=== PATIENT | male | born 1950 | race Caucasian/White ===

== ENCOUNTER 2016-08-01 22:36 | Inpatient (IN) | payer MEDICARE ==
[2016-08-01] MEDS ORDERED: BABY ASPIRIN 81 MG CHEW PO ONE (22:41)
[2016-08-01] MEDS ORDERED: Sodium Chloride 0.9% 1000 ML 1,000 ML IV SCH (22:45)
[2016-08-01] MEDS ORDERED: BABY ASPIRIN 81 MG CHEW ONE (22:56)
[2016-08-01] MEDS ORDERED: Sodium Chloride 0.9% 1000 ML 1,000 ML ONE (22:57)
[2016-08-01 23:01] LABS: A-aADO2 238; ARTERIAL BLD GAS O2 SATURATION 96.7 % (95-100); ARTERIAL BLOOD GAS BASE EXCESS -1.5 (-2.0-2.0); ARTERIAL BLOOD GAS FIO2 50 %; ARTERIAL BLOOD GAS PO2 72 mmHg (75-100)
[2016-08-01 23:06] LABS: BASOPHIL % 0.3 % (0.0-0.4); Eosinophil % 11.1 % (0.00-5.0); Granulocytes % 49.4 % (36.0-66.0); Mean Cell Volume 91.3 fl (78-100); Mean Corpuscular Hemoglobin 30.9 pg (26-32); Mean Platelet Volume 9.6 fl (6-9.5); Monocytes % 7.2 % (0.0-12.0); Platelet Count 130 K/mm3 (150-450); Red Blood Count 4.85 M/mm3 (4.1-5.6); Red Cell Distribution Width 14.3 % (11.5-14.0); White Blood Count 7.2 K/mm3 (4.0-10.5)
--- NOTE | 2016-08-01 23:07 | ERPHSYRPT ---
- History of Present Illness Time Seen by Provider: 08/01/16 22:41 Source: patient, family, EMS Patient Subjective Stated Complaint: onset acute SOB while at rest x 6 hours ago (1600) - reports intermittent periods of CP Triage Nursing Assessment: lifted to cart per EMS personnel - moves all extremities with equal strength. alert/oriented - appropriate affect. skin flushed/dry - no rash/injury appreciated. resps spontaneous - labored - diminished throughout Physician History: CC: short of air Hx: 66 y/o patient of MARY Gilman. He had surgery a few months for chest lymph nodes which turned out to be benign. He takes nebs at home. He worked today. When he got home he had some shortness of breath that increased despite multiple nebs. He had some chest pain that was nonspecific. He had no fever or chills. No abd pain. He does not smoke. EMS noted severe resp distress on arrival with tight wheezing. He was given duoneb X 2, solu medrol 125, and oxygen and had improvement enroute. Severity of Dyspnea-Max: severe Severity of Dyspnea-Current: moderate Allergies/Adverse Reactions: levofloxacin Allergy (Intermediate, Verified 08/01/16 22:38) Hives Hx Tetanus, Diphtheria Vaccination/Date Given: Yes Hx Influenza Vaccination/Date Given: Yes Hx Pneumococcal Vaccination/Date Given: Yes Immunizations Up to Date: Yes - Review of Systems Constitutional: Fatigue, Malaise, No Fever, No Chills Eyes: No Symptoms Ears, Nose, & Throat: No Symptoms Respiratory: Cough, Dyspnea, Wheezing Cardiac: Chest Pain Abdominal/Gastrointestinal: No Abdominal Pain, No Nausea, No Vomiting Skin: No Rash Neurological: No Dizziness, No Focal Weakness, No Parasthesia All Other Systems: Reviewed and Negative - Past Medical History Pertinent Past Medical History: Yes Cardiac History: High Cholesterol, Hypertension Respiratory History: COPD - Past Surgical History Past Surgical History: Yes Gastrointestinal: Cholecystectomy - Social History Smoking Status: Never smoker Exposure to second hand smoke: No Drug Use: none Patient Lives Alone: No - Nursing Vital Signs Nursing Vital Signs: Initial Vital Signs Temperature 98.8 F Temperature Source Rectal Pulse Rate 83 Respiratory Rate 18 Blood Pressure 121/70 Pain Intensity 6 - Physical Exam General Appearance: alert Eye Exam: PERRL/EOMI Ears, Nose, Throat Exam: pharyngeal erythema Neck Exam: normal inspection, non-tender, supple Respiratory Exam: respiratory distress (mild), crackles/rales, wheezing Cardiovascular/Chest Exam: normal heart sounds, regular rate/rhythm Abdominal/Gastrointestinal Exam: soft, No tenderness, No distention, No mass, No guarding Extremity Exam: non-tender, normal range of motion Neurologic Exam: alert, oriented x 3, cooperative, sensation nml, No motor deficits Skin Exam: warm, dry, No rash SpO2 Interpretation: normal SpO2: 96 Oxygen Delivery: Non-rebreather - Course Nursing assessment & vital signs reviewed: Yes EKG Interpreted by Me: RATE (83), Sinus Rhythm, Left Ardara Deviation, NORMAL INTERVALS (QTc 426), Non-specific ST Changes - Radiology Exams cxr X-ray Interpretation: Reviewed by me (CM, hilar adenopathy) Ordered Tests: Active Orders 24 hr Category Date Time Status Market Research Consultant STAT Care 08/01/16 22:41 Active EKG-ER Only STAT Care 08/01/16 22:41 Active IV Insertion STAT Care 08/01/16 22:41 Active Oxygen-ED Only VENTI-MASK 50% Care 08/01/16 22:41 Active Rectal Temperature STAT Care 08/01/16 23:05 Active CHEST 1 VIEW (PORTABLE) Stat Exams 08/01/16 22:41 Taken ARTERIAL BLOOD GASES Stat Lab 08/01/16 23:00 Results BLOOD CULTURE Stat Lab 08/01/16 23:02 Received CBC W DIFF Stat Lab 08/01/16 22:50 Completed CMP Stat Lab 08/01/16 22:50 Completed D-DIMER QUANTITATION Stat Lab 08/01/16 22:50 Completed INFLUENZA A+B Stat Lab 08/01/16 23:00 Completed Lactic Acid Urgent Lab 08/01/16 22:42 Completed MAGNESIUM Stat Lab 08/01/16 22:50 Completed NT PRO BNP Stat Lab 08/01/16 22:50 Completed PROTIME WITH INR Stat Lab 08/01/16 22:50 Completed PTT Stat Lab 08/01/16 22:50 Completed TROPONIN Q3H Lab 08/01/16 22:50 Completed TROPONIN Q3H Lab 08/02/16 01:45 Ordered TROPONIN Q3H Lab 08/02/16 04:45 Ordered TROPONIN Q3H Lab 08/02/16 07:45 Ordered TROPONIN Q3H Lab 08/02/16 10:45 Ordered Respiratory Nebulizer STAT RT 08/01/16 23:59 Active Medication Summary Generic Name Dose Route Start Last Admin Trade Name Tay PRN Reason Stop Dose Admin Sodium Chloride 1,000 mls @ 50 mls/hr 08/01/16 22:45 08/01/16 22:57 Sodium Chloride 0.9% 1000 Ml IV 08/31/16 22:44 50 mls/hr .Q20H ROHIT Administration Azithromycin 250 mls @ 125 mls/hr 08/01/16 23:58 Zithromax 500 Mg/ 250 Ml Nacl Premix IV 08/02/16 01:57 STAT ONE Magnesium Sulfate/Dextrose 100 mls @ 100 mls/hr 08/01/16 23:45 08/02/16 00:35 Magnesium 1 Gm / 100 Ml D5w IV 08/02/16 01:44 100 mls/hr Q1H ROHIT Administration Discontinued Medications Generic Name Dose Route Start Last Admin Trade Name Tay PRN Reason Stop Dose Admin Albuterol Sulfate 2.5 mg 08/01/16 23:59 08/02/16 00:09 Proventil 2.5 Mg/3 Ml Neb IH 08/02/16 00:00 2.5 mg STAT ONE Administration Albuterol Sulfate Confirm 08/02/16 00:08 Proventil 2.5 Mg/3 Ml Neb Administered 08/02/16 00:09 Dose 2.5 mg IH .STK-MED ONE Aspirin 81 mg 08/01/16 22:41 08/01/16 22:58 Baby Aspirin 81 Mg Chew PO 08/01/16 22:42 81 mg STAT ONE Administration Aspirin Confirm 08/01/16 22:56 Baby Aspirin 81 Mg Chew Administered 08/01/16 22:57 Dose 81 mg .ROUTE .STK-MED ONE Sodium Chloride Confirm 08/01/16 22:57 Sodium Chloride 0.9% 1000 Ml Administered 08/01/16 22:58 Dose 1,000 mls @ ud .ROUTE .STK-MED ONE Ceftriaxone Sodium/Dextrose 50 mls @ 100 mls/hr 08/01/16 23:58 Rocephin 1 Gm-D5w 50 Ml Bag IV 08/02/16 00:27 STAT ONE Magnesium Sulfate/Dextrose Confirm 08/02/16 00:03 Magnesium 1 Gm / 100 Ml D5w Administered 08/02/16 00:04 Dose 200 mls @ ud IV .STK-MED ONE Lab/Rad Data: Laboratory Result Diagrams 08/01/16 22:50 08/01/16 22:50 Laboratory Results 08/01/16 08/01/16 08/01/16 Range/Units 23:00 23:00 22:50 WBC (4.0-10.5) K/mm3 RBC (4.1-5.6) M/mm3 Hgb (12.5-18.0) gm/dl Hct (42-50) % MCV (78-100) fl MCH (26-32) pg MCHC (32-36) g/dl RDW (11.5-14.0) % Plt Count (150-450) K/mm3 MPV (6-9.5) fl Gran % (36.0-66.0) % Lymphocytes % (24.0-44.0) % Monocytes % (0.0-12.0) % Eosinophils % (0.00-5.0) % Basophils % (0.0-0.4) % Basophils # (0-0.4) INR (0.8-3.0) PTT (24.1-36.1) SECONDS D-Dimer 0.412 (0.00-0.49) mg/L Puncture Site Pending pCO2 37 (35-45) mmHg pO2 72 L (75-100) mmHg Base Excess -1.5 (-2.0-2.0) O2 Saturation 94.3 (94-100) g/dF ABG pH 7.40 (7.35-7.45) ABG HCO3 22.9 (22-28) ABG O2 Sat (Measured) 96.7 (95-100) % Brian Test Pending A-a Gradient 238 a/A Ratio 0.23 Hemoglobin 15.3 Carboxyhemoglobin 1.7 (0.0-6.9) % THgb Methemoglobin 0.8 L (1.4-1.5) % Temperature 37.0 C POC O2 Flow Rate 50 % Sodium (136-145) mEq/L Potassium 3.7 (3.5-5.1) mEq/L Chloride (98-107) mEq/L Carbon Dioxide (21-32) mEq/L Anion Gap (5-15) MEQ/L BUN (9-20) mg/dL Creatinine (0.55-1.30) mg/dl Estimated GFR ML/MIN Glucose (70-110) MG/DL Lactic Acid (0.4-2.0) Calcium (8.5-10.1) mg/dL Magnesium (1.8-2.4) mg/dL Total Bilirubin (0.2-1.0) mg/dL AST (15-37) U/L ALT (12-78) U/L Alkaline Phosphatase (46-116) U/L Troponin I (0.000-0.056) ng/ml NT-Pro-B Natriuret Pep (0-125) pg/ml Serum Total Protein (6.4-8.2) gm/dL Albumin (3.4-5.0) g/dL Influenza Type A Ag NEGATIVE (NEGATIVE) Influenza Type B Ag NEGATIVE (NEGATIVE) 08/01/16 08/01/16 08/01/16 Range/Units 22:50 22:50 22:50 WBC (4.0-10.5) K/mm3 RBC (4.1-5.6) M/mm3 Hgb (12.5-18.0) gm/dl Hct (42-50) % MCV (78-100) fl MCH (26-32) pg MCHC (32-36) g/dl RDW (11.5-14.0) % Plt Count (150-450) K/mm3 MPV (6-9.5) fl Gran % (36.0-66.0) % Lymphocytes % (24.0-44.0) % Monocytes % (0.0-12.0) % Eosinophils % (0.00-5.0) % Basophils % (0.0-0.4) % Basophils # (0-0.4) INR 1.00 (0.8-3.0) PTT 30.9 (24.1-36.1) SECONDS D-Dimer (0.00-0.49) mg/L Puncture Site pCO2 (35-45) mmHg pO2 (75-100) mmHg Base Excess (-2.0-2.0) O2 Saturation (94-100) g/dF ABG pH (7.35-7.45) ABG HCO3 (22-28) ABG O2 Sat (Measured) (95-100) % Brian Test A-a Gradient a/A Ratio Hemoglobin Carboxyhemoglobin (0.0-6.9) % THgb Methemoglobin (1.4-1.5) % Temperature C POC O2 Flow Rate % Sodium (136-145) mEq/L Potassium (3.5-5.1) mEq/L Chloride (98-107) mEq/L Carbon Dioxide (21-32) mEq/L Anion Gap (5-15) MEQ/L BUN (9-20) mg/dL Creatinine (0.55-1.30) mg/dl Estimated GFR ML/MIN Glucose (70-110) MG/DL Lactic Acid (0.4-2.0) Calcium (8.5-10.1) mg/dL Magnesium 2.1 (1.8-2.4) mg/dL Total Bilirubin (0.2-1.0) mg/dL AST (15-37) U/L ALT (12-78) U/L Alkaline Phosphatase (46-116) U/L Troponin I < 0.017 (0.000-0.056) ng/ml NT-Pro-B Natriuret Pep (0-125) pg/ml Serum Total Protein (6.4-8.2) gm/dL Albumin (3.4-5.0) g/dL Influenza Type A Ag (NEGATIVE) Influenza Type B Ag (NEGATIVE) 08/01/16 08/01/16 08/01/16 Range/Units 22:50 22:50 22:42 WBC 7.2 (4.0-10.5) K/mm3 RBC 4.85 (4.1-5.6) M/mm3 Hgb 15.0 (12.5-18.0) gm/dl Hct 44.3 (42-50) % MCV 91.3 (78-100) fl MCH 30.9 (26-32) pg MCHC 33.9 (32-36) g/dl RDW 14.3 H (11.5-14.0) % Plt Count 130 L (150-450) K/mm3 MPV 9.6 H (6-9.5) fl Gran % 49.4 (36.0-66.0) % Lymphocytes % 32.0 (24.0-44.0) % Monocytes % 7.2 (0.0-12.0) % Eosinophils % 11.1 H (0.00-5.0) % Basophils % 0.3 (0.0-0.4) % Basophils # 0.02 (0-0.4) INR (0.8-3.0) PTT (24.1-36.1) SECONDS D-Dimer (0.00-0.49) mg/L Puncture Site pCO2 (35-45) mmHg pO2 (75-100) mmHg Base Excess (-2.0-2.0) O2 Saturation (94-100) g/dF ABG pH (7.35-7.45) ABG HCO3 (22-28) ABG O2 Sat (Measured) (95-100) % Brian Test A-a Gradient a/A Ratio Hemoglobin Carboxyhemoglobin (0.0-6.9) % THgb Methemoglobin (1.4-1.5) % Temperature C POC O2 Flow Rate % Sodium 143 (136-145) mEq/L Potassium 3.8 (3.5-5.1) mEq/L Chloride 107 (98-107) mEq/L Carbon Dioxide 26.9 (21-32) mEq/L Anion Gap 12.4 (5-15) MEQ/L BUN 17 (9-20) mg/dL Creatinine 1.22 (0.55-1.30) mg/dl Estimated GFR > 60 ML/MIN Glucose 113 H (70-110) MG/DL Lactic Acid 1.0 (0.4-2.0) Calcium 9.1 (8.5-10.1) mg/dL Magnesium (1.8-2.4) mg/dL Total Bilirubin 1.1 H (0.2-1.0) mg/dL AST 14 L (15-37) U/L ALT 19 (12-78) U/L Alkaline Phosphatase 63 (46-116) U/L Troponin I (0.000-0.056) ng/ml NT-Pro-B Natriuret Pep < 5.0 (0-125) pg/ml Serum Total Protein 7.0 (6.4-8.2) gm/dL Albumin 3.9 (3.4-5.0) g/dL Influenza Type A Ag (NEGATIVE) Influenza Type B Ag (NEGATIVE) - Progress Progress Note: 08/01/16 23:09 He was weaned from NRB to venti mask 50% on arrival. He seems to be improving. Sent for his medical record from [facility]. He sees [facility]. He sees BAG CUTTER Kalina locally. He prefers to be admitted locally and not at [place]. 08/02/16 00:48 The patient is improved but still has oxygen requirement. D-dimer wnl. Called Dr Vazquez for admission. She advised call Dr Thelma Thao. Spoke to Dr Thelma Thao who agreed with admission plans. Discussed with .: George Will see patient in: hospital (full admit) Counseled pt/family regarding: lab results, diagnosis, need for follow-up, rad results - Departure Time of Disposition: 00:49 Departure Disposition: In-patient Admission Clinical Impression: Acute exacerbation of chronic bronchitis, Respiratory distress Condition: Fair Critical Care Time: Yes Critical Care Time(excluding separately billable procedures): 30-74 minutes Referrals: MARNIE LUZ [Primary Care Provider] -
[2016-08-01 23:23] LABS: PROTIME 11.2 SECONDS (8.83-12.87)
[2016-08-01 23:25] LABS: PTT 30.9 SECONDS (24.1-36.1)
[2016-08-01 23:37] LABS: ALBUMIN 3.9 g/dL (3.4-5.0); ALKALINE PHOSPHATASE 63 U/L (46-116); ANION GAP 12.4 MEQ/L (5-15); BILIRUBIN,TOTAL 1.1 mg/dL (0.2-1.0); BLOOD UREA NITROGEN 17 mg/dL (9-20); CHLORIDE 107 mEq/L (98-107); Carbon Dioxide 26.9 mEq/L (21-32); Glucose 113 MG/DL (70-110); Potassium 3.8 mEq/L (3.5-5.1); SGOT/AST 14 U/L (15-37); SGPT/ALT 19 U/L (12-78); SODIUM 143 mEq/L (136-145)
[2016-08-01] MEDS ORDERED: ROCEPHIN 1 Gm-D5w 50 ml Bag** 50 ML IV ONE (23:58)
[2016-08-01] MEDS ORDERED: Zithromax 500 MG/ 250 ML NaCl Premix 250 ML IV ONE (23:58)
[2016-08-01] MEDS ORDERED: PROVENTIL 2.5 MG/3 ML NEB IH ONE (23:59)
[2016-08-02] MEDS ORDERED: Magnesium 1 Gm / 100 Ml D5W*** 200 ML IV ONE (00:03)
[2016-08-02] MEDS: Magnesium 1 Gm / 100 Ml D5W*** 100 ML IV SCH ×2 (00:05→00:35)
[2016-08-02] MEDS ORDERED: PROVENTIL 2.5 MG/3 ML NEB IH ONE (00:08)
[2016-08-02] MEDS ORDERED: ROCEPHIN 1 Gm-D5w 50 ml Bag** 50 ML IV ONE (00:47)
[2016-08-02] MEDS ORDERED: TYLENOL 325 MG PO PRN (01:28)
[2016-08-02] MEDS ORDERED: Sodium Chloride 0.9% 1000 ML 1,000 ML IV SCH (01:28)
[2016-08-02] MEDS: solu-MEDROL 125 MG IV SCH ×4 (01:44→19:19)
[2016-08-02] MEDS: DUONEB 0.5-3 MG/3 ml Neb IH SCH ×6 (03:45→23:59)
--- NOTE | 2016-08-02 08:59 | XRAY ---
Indication: Short of breath. Comparison: January 27, 2016 Portable chest again slightly underinflated with minimal bibasilar infiltrate/atelectasis. Remaining heart, lungs, and bony thorax unremarkable.
[2016-08-02] MEDS ORDERED: Zithromax 500 MG/ 250 ML NaCl Premix 250 ML IV SCH (10:00)
[2016-08-02] MEDS: ENOXAPARIN SODIUM SQ SCH (11:17)
[2016-08-02] MEDS: BETAMETHASONE DIPROPIONATE TOP SCH ×2 (11:17→22:36)
[2016-08-02] MEDS: Pepcid 20 MG VIAL IV SCH ×2 (11:17→22:31)
[2016-08-02] MEDS: Ecotrin 325 MG PO SCH (11:17)
[2016-08-02] MEDS: Dextrose 5% -0.45 NaCl 1000 ML 1,000 ML IV SCH (11:18)
[2016-08-02 11:28] LABS: TROPONIN < 0.017 ng/ml (0.000-0.056)
[2016-08-02] MEDS: VITAMIN D PO SCH (15:36)
[2016-08-02] MEDS: TENORMIN 50 MG PO SCH (15:36)
--- NOTE | 2016-08-02 16:16 | HP ---
HISTORY OF PRESENT ILLNESS: This is a 66 year-old man with a history significant for parahilar and mediastinal lymphadenopathy requiring biopsy at [facility] in April 2016 with results showing reactive lymph node with prominent sinus histiocytosis. The patient presented via ambulance to the emergency department. He states that around 1400 hours yesterday he suddenly had trouble breathing. He said he was watching television when it started and he has had episodes like this before but not quite as bad. He denies any history of asthma or chronic obstructive pulmonary disease. Denies ever having smoked. He reports that his kept encouraging him to come to the emergency room but he kept waiting. He said finally it was so bad that he could not stand up and so the ambulance was called. He reports he used four breathing treatments yesterday once before the episode started and three afterwards. He denies any fever. He has had a cough productive of some sputum yesterday but that has now stopped and he has had a sore throat. He reports that steroids in April helped in the past. He reports that he has been to [facility] and [facility] and then went [facility] for his breathing problems last year and that he has been in the hospital multiple times often needing to stay for two or three days to get better. He reports sometime this month he is supposed to have a CT scan of his lung to take to someone in [place] but he cannot remember exactly who he is taking it to for a follow up. The emergency room doctor was kind enough to contact the tactical air defense controller when the patient was in the emergency department. The emergency room doctor told me he was needing 40% oxygen, to keep his oxygen saturations up and they were agreeable to keeping him here at [facility]. Early this morning the nurse noted that the patient was trying to use the urinal and began coughing and could not clear his airway and then turned beet red and then had probably what looked like a seizure. She reports he began to shake and his left and right leg yamilex into the air, this only lasted 10 to 20 seconds and when this stopped the patient did not know what had happened. The patient states that he was just lying there when this happened. If felt like he blacked out and then woke up and did not know what had happened. He has no history of any seizures. REVIEW OF SYSTEMS: The patient denies headache. No nausea or vomiting. No abdominal pain. He has had chest pain along his sternum. No lower extremity edema. He had a rash on his lower back that has been itchy for a week and no [id number] medications have helped. Otherwise review of systems as noted in the history of present illness. PAST MEDICAL HISTORY: Hypertension, hyperlipidemia, benign prostatic hypertrophy, reactive mediastinal and perihilar lymph nodes as discussed in the history of present illness. PAST SURGICAL HISTORY: He had the lymph node biopsy, open cholecystectomy 20 years ago. He reports during this his liver started bleeding. He has had left elbow surgery for a nerve problem. MEDICATIONS: The patient is unsure of what medications he takes. He knows he takes an aspirin and something for high blood pressure and lipids. He is having his bring this list in. ALLERGIES: LEVOFLOXACIN. SOCIAL HISTORY: Denies tobacco. He works in the [employer] here at [employer] in [employer]. He is . Denies any alcohol or any illicit drugs. FAMILY HISTORY: His mother is and had cancer. His father is and had coronary artery disease and in his 50's. PHYSICAL EXAMINATION: VITAL SIGNS: Temperature current 97.6F, temperature max 98.8F, heart rate 80 to 107 currently 107, respiratory rate 17 to 22, blood pressure 111 to 135 over 50 to 76, weight 82.5 kg. Oxygen saturation 93 to 95% on 4 liters nasal cannula. GENERAL: The patient is lying in bed, slightly dyspneic with tachypnea but he is able to talk and in no acute distress. CVS: He is tachycardic with regular rhythm. No murmurs, gallops or rubs are aoppreciated. CHEST: He has scattered wheezes throughout, decreased breath sounds at the bases. No crackles, no rhonchi. ABDOMEN: Soft, nontender, nondistended with normal bowel sounds. EXTREMITIES: No clubbing, cyanosis or edema. SKIN: He has macular rash over his lower back, no pustules. No blisters. NEURO: Cranial nerves II-XII intact. Strength 5/5 in all four extremities. Finger to nose and heel to cisse are normal bilaterally. He is alert, oriented, and talkative. LABORATORY DATA AND TESTS: His CBC revealed a PLT count of 130. BMP revealed a glucose of 113. Bilirubin 1.1. He had serial negative troponins. Influenza A and B were negative. Chest x-ray was read as slightly underinflated with minimal bibasilar infiltrate/atelectasis. EKG revealed sinus rhythm with no ST or T wave changes from EKG from last night. ASSESSMENT AND PLAN: 1) Acute chronic obstructive pulmonary disease exacerbation. He has been started on ceftriaxone and azithromycin as well as IV Solu-Medrol. Respiratory therapy has been following him. He continues to be on 4 liters oxygen by nasal cannula, will continue with nebulizer treatment and tactical air defense controller, Dr. Rigo Thao, has been consulted. 2) History of reactive lymph nodes. It is unclear at this time if this is contributing to his problem. Again, Dr. Rigo Thao has been consulted and from the chart appears familiar in the past from [facility]. 3) Chest pain. Serial negative troponins. Will recheck an EKG. 4) History of coronary artery disease. According to Dr. Pastor's note from [facility] he has a history of a stent so will make his aspirin will be ordered. 5) Seizure. I have asked for a tele-neurology consult and ordered an EEG. I will also order Ativan as needed for seizure-like activity lasting longer than 10 minutes. 6) Code status. This was discussed with the patient and he confirms that he does not want to be intubated or have chest compressions or have any heroic measures taken if he were to stop breathing or his heart was to stop beating. He reports that he has discussed this with his . 7) Deep venous thrombosis prophylaxis. He has been started on Lovenox and RACHID hose.
--- NOTE | 2016-08-02 19:49 | XRAY ---
Indication: Seizure. Multiple contiguous axial images obtained through the head without contrast. Comparison: None Age-appropriate global atrophy. No acute intracranial hemorrhage, abnormal extra-axial fluid collection, or mass effect. Fourth ventricle is midline. Freedman-white matter differentiation preserved. Bony calvarium intact. There is complete opacification of the visualized paranasal sinuses bilaterally and partial opacification of both mastoid air cells. Impression: 1. No acute intracranial abnormalities. 2. Pansinusitis. 3. Partial opacification of both mastoid air cells also presumed inflammatory. CTDI is 70.21
[2016-08-02] MEDS ORDERED: NON-FORMULARY ITEM (Lovastatin [Lovastatin] 10 MG) PO SCH (22:00)
[2016-08-02] MEDS: Flomax 0.4 MG PO SCH (22:32)
[2016-08-02] MEDS: ROCEPHIN 1 Gm-D5w 50 ml Bag** 50 ML IV SCH (22:33)
[2016-08-02] MEDS: Zocor 10MG PO SCH (22:37)
[2016-08-02] MEDS: Zithromax 500 MG/ 250 ML NaCl Premix 250 ML IV SCH (23:42)
[2016-08-03 00:59] LABS: ALLEN TEST OK? YES
[2016-08-03] MEDS: solu-MEDROL 125 MG IV SCH ×4 (01:34→20:17)
[2016-08-03] MEDS: DUONEB 0.5-3 MG/3 ml Neb IH SCH ×6 (03:31→23:23)
[2016-08-03 06:27] LABS: Granulocytes % 93.3 % (36.0-66.0); Lymphocytes % 4.3 % (24.0-44.0); Mean Cell Volume 93.3 fl (78-100); Mean Corpuscular Hemoglobin 30.7 pg (26-32); Mean Platelet Volume 10.2 fl (6-9.5); Monocytes % 2.4 % (0.0-12.0); Platelet Count 154 K/mm3 (150-450); Red Blood Count 4.62 M/mm3 (4.1-5.6); Red Cell Distribution Width 14.8 % (11.5-14.0); White Blood Count 14.9 K/mm3 (4.0-10.5)
[2016-08-03 06:32] LABS: ANION GAP 17.1 MEQ/L (5-15); BLOOD UREA NITROGEN 21 mg/dL (9-20); CHLORIDE 108 mEq/L (98-107); Carbon Dioxide 21.3 mEq/L (21-32); Glucose 165 MG/DL (70-110); Potassium 4.4 mEq/L (3.5-5.1); SODIUM 142 mEq/L (136-145)
--- NOTE | 2016-08-03 07:59 | PCM.NOTE ---
Date and Time: 08/03/16 0753 Subjective Assessment: Patient reports he had an episode of trouble breathing last night that lasted about 45 minutes and he had to have a breathing treatment. He denies any pain. He has had a good appetite. He continues to be wheezy and short of breath. - Review of Systems Constitutional: No Symptoms Eyes: No Symptoms Ears, Nose, & Throat: No Symptoms Respiratory: Cough, Short Of Breath, Wheezing Cardiac: No Symptoms Abdominal/Gastrointestinal: No Symptoms Genitourinary Symptoms: No Symptoms Musculoskeletal: No Symptoms Skin: No Symptoms Objective Exam General Appearance: other (mild tachypnea) Neurologic Exam: alert, cooperative, normal mood/affect Skin Exam: normal color, warm, dry, No rash Respiratory Exam: other (wheezing throughout, equal breath sounds, no crackles, no rhonchi) Cardiovascular Exam: other (tachycardic, regular rate), No murmur, No friction rub, No gallop Gastrointestinal/Abdomen Exam: soft, normal bowel sounds, No tenderness, No distention, No mass, No guarding Extremity Exam: other (no c/c/e) OBJECTIVE DATA Vital Signs: Vital Signs - 24 hr Temp Pulse Resp BP BP Pulse Ox 08/03/16 07:00 96 H 18 93 L 08/03/16 04:00 98.6 F 106 H 15 104/61 94 L 08/03/16 03:43 95 08/03/16 03:31 105 H 17 95 08/03/16 00:04 96 08/03/16 00:02 108 H 17 96 08/03/16 00:01 108 H 08/03/16 00:00 98.0 F 107 H 18 111/68 94 L 08/02/16 20:00 98.7 F 105 H 23 134/76 94 L 08/02/16 19:44 95 08/02/16 19:33 102 H 23 94 L 08/02/16 16:00 97.9 F 115 H 18 131/71 93 L 08/02/16 15:36 113 H 131/71 08/02/16 14:22 77 22 95 08/02/16 12:00 98.1 F 113 H 18 132/82 93 L 08/02/16 10:26 105 H 22 92 L 08/02/16 08:00 97.6 F 107 H 22 119/61 93 L Oxygen-Last 24 hours O2 Percentage 4 Liters = 36% O2 Percentage 4 Liters = 36% O2 Percentage 4 Liters = 36% O2 Percentage 4 Liters = 36% O2 Percentage 4 Liters = 36% O2 Percentage 4 Liters = 36% Pain Assessment - Last Documented Pain Intensity 1 Pain Scale Used 0-10 Pain Scale Intake and Output: Intake & Output 08/01/16 08/02/16 08/03/16 08/04/16 06:59 06:59 06:59 06:59 Intake Total 807 2452 Output Total 350 1825 Balance 457 627 Weight 82.5 kg Lab Results: Lab Results-Last 24 Hours 08/02/16 08/02/16 08/03/16 Range/Units 08:00 10:47 05:35 WBC (4.0-10.5) K/mm3 RBC (4.1-5.6) M/mm3 Hgb (12.5-18.0) gm/dl Hct (42-50) % MCV (78-100) fl MCH (26-32) pg MCHC (32-36) g/dl RDW (11.5-14.0) % Plt Count (150-450) K/mm3 MPV (6-9.5) fl Gran % (36.0-66.0) % Lymphocytes % (24.0-44.0) % Monocytes % (0.0-12.0) % Eosinophils % (0.00-5.0) % Basophils % (0.0-0.4) % Basophils # (0-0.4) Sodium 142 (136-145) mEq/L Potassium 4.4 (3.5-5.1) mEq/L Chloride 108 H (98-107) mEq/L Carbon Dioxide 21.3 (21-32) mEq/L Anion Gap 17.1 H (5-15) MEQ/L BUN 21 H (9-20) mg/dL Creatinine 1.25 (0.55-1.30) mg/dl Estimated GFR > 60 ML/MIN Glucose 165 H (70-110) MG/DL Calcium 8.5 (8.5-10.1) mg/dL Troponin I < 0.017 < 0.017 (0.000-0.056) ng/ml NT-Pro-B Natriuret Pep 84 (0-125) pg/ml 08/03/16 Range/Units 05:35 WBC 14.9 H (4.0-10.5) K/mm3 RBC 4.62 (4.1-5.6) M/mm3 Hgb 14.2 (12.5-18.0) gm/dl Hct 43.1 (42-50) % MCV 93.3 (78-100) fl MCH 30.7 (26-32) pg MCHC 32.9 (32-36) g/dl RDW 14.8 H (11.5-14.0) % Plt Count 154 (150-450) K/mm3 MPV 10.2 H (6-9.5) fl Gran % 93.3 H (36.0-66.0) % Lymphocytes % 4.3 L (24.0-44.0) % Monocytes % 2.4 (0.0-12.0) % Eosinophils % 0.0 (0.00-5.0) % Basophils % 0.0 (0.0-0.4) % Basophils # 0 (0-0.4) Sodium (136-145) mEq/L Potassium (3.5-5.1) mEq/L Chloride (98-107) mEq/L Carbon Dioxide (21-32) mEq/L Anion Gap (5-15) MEQ/L BUN (9-20) mg/dL Creatinine (0.55-1.30) mg/dl Estimated GFR ML/MIN Glucose (70-110) MG/DL Calcium (8.5-10.1) mg/dL Troponin I (0.000-0.056) ng/ml NT-Pro-B Natriuret Pep (0-125) pg/ml Radiology Exams: Radiology Procedures Category Date Time Status HEAD WITHOUT CONTRAST [CT] Urgent Exams 08/02/16 12:05 Completed Assessment/Plan (1) COPD with acute exacerbation Current Visit: Yes Status: Acute Assessment & Plan: Continue ceftriaxone and azithromycin Day 2 for both. Continue IV steroids. Continue albuterol up to q [address] Clinton Thao consulted from ER and agreed with admission here but has not been able to see patient here this weekend. Discussed again with him yesterday and he does not think this is from the reactive lymph nodes (histiocytosis seen biopsy at [facility] 05/11, see report from outside hospital in paper chart). Code(s): J44.1 - CHRONIC OBSTRUCTIVE PULMONARY DISEASE W (ACUTE) EXACERBATION (2) Enlarged lymph nodes, unspecified Current Visit: Yes Status: Acute Assessment & Plan: Continue outpatient work up per specialists, Dr. Cilnton Thao and he may be seeing an oncologist too. Patient was unsure who his specialists were. Code(s): R59.9 - ENLARGED LYMPH NODES, UNSPECIFIED (3) Seizure Current Visit: Yes Status: Acute Assessment & Plan: Tele neuro consult obtained yesterday. Try to get EEG Thursday. They did not recommend starting an anti epileptic at this time. Code(s): R56.9 - UNSPECIFIED CONVULSIONS (4) Sinus tachycardia Current Visit: Yes Status: Acute Assessment & Plan: May be due to copd exacerbation. Will start diltiazem 30 mg po qid and increase fluids to 100 mL/hr as his maintenance IV fluid requirements are more with his labored breathing. Code(s): R00.0 - TACHYCARDIA, UNSPECIFIED
[2016-08-03] MEDS: TENORMIN 50 MG PO SCH (09:06)
[2016-08-03] MEDS: Pepcid 20 MG VIAL IV SCH ×2 (09:06→21:11)
[2016-08-03] MEDS: Ecotrin 325 MG PO SCH (09:06)
[2016-08-03] MEDS: Dextrose 5% -0.45 NaCl 1000 ML 1,000 ML IV SCH ×2 (09:08→20:41)
[2016-08-03] MEDS: Cardizem 30 MG PO SCH ×4 (09:08→21:11)
[2016-08-03] MEDS: ENOXAPARIN SODIUM SQ SCH (09:11)
[2016-08-03] MEDS: BETAMETHASONE DIPROPIONATE TOP SCH ×2 (09:11→21:11)
[2016-08-03] MEDS: VITAMIN D PO SCH (09:14)
[2016-08-03] MEDS: Flomax 0.4 MG PO SCH ×2 (09:14→21:12)
--- NOTE | 2016-08-03 09:22 | XRAY ---
Indication: COPD and wheezing. Comparison: August 01, 2016. PA/lateral chest better inflated today with clearing of the previous right base opacity and stable left base infiltrate/atelectasis. Remaining lungs clear. Heart is not enlarged. No new cardiopulmonary abnormalities.
[2016-08-03] MEDS ORDERED: NON-FORMULARY ITEM (Cholecalciferol (Vitamin D3) [Vitamin D3] 1,000 UNIT) PO SCH (10:00)
[2016-08-03] MEDS ORDERED: ATENOLOL 12.5 MG PO SCH (10:00)
[2016-08-03] MEDS: Ativan 2 MG/1 ML VIAL IV PRN (15:04)
[2016-08-03] MEDS: Zocor 10MG PO SCH (21:12)
[2016-08-03] MEDS: ROCEPHIN 1 Gm-D5w 50 ml Bag** 50 ML IV SCH (21:12)
[2016-08-03] MEDS: Zithromax 500 MG/ 250 ML NaCl Premix 250 ML IV SCH (23:11)
[2016-08-04] MEDS: solu-MEDROL 125 MG IV SCH ×4 (02:10→20:09)
[2016-08-04] MEDS: DUONEB 0.5-3 MG/3 ml Neb IH SCH ×6 (03:20→22:42)
[2016-08-04 05:52] LABS: ANION GAP 14.9 MEQ/L (5-15); BLOOD UREA NITROGEN 23 mg/dL (9-20); CHLORIDE 108 mEq/L (98-107); Carbon Dioxide 23.3 mEq/L (21-32); Glucose 164 MG/DL (70-110); Potassium 4.5 mEq/L (3.5-5.1); SODIUM 142 mEq/L (136-145)
[2016-08-04 05:56] LABS: Mean Cell Volume 93.8 fl (78-100); Mean Corpuscular Hemoglobin 30.7 pg (26-32); Platelet Count 140 K/mm3 (150-450); Red Blood Count 4.36 M/mm3 (4.1-5.6); Red Cell Distribution Width 14.8 % (11.5-14.0); White Blood Count 11.9 K/mm3 (4.0-10.5)
[2016-08-04 06:59] LABS: BAND 2 % (0.0-2.0); Total Cells Counted 100
[2016-08-04 07:01] LABS: Platelet Estimate NORMAL (NORMAL)
--- NOTE | 2016-08-04 08:34 | PCM.NOTE ---
Date and Time: 08/04/16831 Subjective Assessment: patient reports cough, wheezing and dyspnea are about the same. no new complaints, no episodes of seizure activity or syncope overnight Objective Exam General Appearance: no apparent distress, alert Respiratory Exam: prolonged expirations Cardiovascular Exam: regular rate/rhythm, normal heart sounds Gastrointestinal/Abdomen Exam: soft, No tenderness, No mass Extremity Exam: normal inspection, normal range of motion OBJECTIVE DATA Vital Signs: Vital Signs - 24 hr Temp Pulse Resp BP BP Pulse Ox 08/04/16 07:21 97.8 F 91 H 22 117/57 96 08/04/16 06:57 89 24 95 08/04/16 04:00 97.8 F 90 24 117/56 97 08/04/16 03:23 91 H 20 97 08/04/16 00:00 97.9 F 101 H 20 129/63 93 L 08/03/16 23:24 92 H 20 93 L 08/03/16 20:14 96 08/03/16 20:00 97.5 F 104 H 19 125/61 96 08/03/16 19:59 92 H 20 96 08/03/16 16:28 98 F 110 H 22 118/58 95 08/03/16 14:26 117 H 28 H 98 08/03/16 11:43 97.6 F 106 H 18 123/58 91 L 08/03/16 10:17 105 H 16 95 08/03/16 09:06 116 H 122/64 Oxygen-Last 24 hours O2 Percentage 4 Liters = 36% O2 Percentage 4 Liters = 36% O2 Percentage 4 Liters = 36% O2 Percentage 4 Liters = 36% O2 Percentage 4 Liters = 36% O2 Percentage 4 Liters = 36% Pain Assessment - Last Documented Pain Intensity 1 Pain Scale Used 0-10 Pain Scale Intake and Output: Intake & Output 08/01/16 08/02/16 08/03/16 08/04/16 11:59 11:59 11:59 11:59 Intake Total 807 2452 1895 Output Total 475 2150 Balance 139 925 2508 Weight 82.5 kg Lab Results: Lab Results-Last 24 Hours 08/04/16 08/04/16 Range/Units 05:25 05:25 WBC 11.9 H (4.0-10.5) K/mm3 RBC 4.36 (4.1-5.6) M/mm3 Hgb 13.4 (12.5-18.0) gm/dl Hct 40.9 L (42-50) % MCV 93.8 (78-100) fl MCH 30.7 (26-32) pg MCHC 32.8 (32-36) g/dl RDW 14.8 H (11.5-14.0) % Plt Count 140 L (150-450) K/mm3 MPV 10.0 H (6-9.5) fl Segmented Neutrophils 96 H (36.-66.) % Band Neutrophils 2 (0.0-2.0) % Lymphocytes (Manual) 1 L (24-44) % Monocytes (Manual) 1 (0.0-12.0) % Differential Comment NORMAL Platelet Estimate NORMAL (NORMAL) Sodium 142 (136-145) mEq/L Potassium 4.5 (3.5-5.1) mEq/L Chloride 108 H (98-107) mEq/L Carbon Dioxide 23.3 (21-32) mEq/L Anion Gap 14.9 (5-15) MEQ/L BUN 23 H (9-20) mg/dL Creatinine 1.22 (0.55-1.30) mg/dl Estimated GFR > 60 ML/MIN Glucose 164 H (70-110) MG/DL Calcium 8.2 L (8.5-10.1) mg/dL Radiology Exams: Radiology Procedures Category Date Time Status CHEST 2 VIEWS (PA AND LAT) Routine Exams 08/03/16 07:57 Completed HEAD WITHOUT CONTRAST [CT] Urgent Exams 08/02/16 12:05 Completed Multi-Disciplinary Progress Notes: Multi-Disciplinary Progress Notes 08/03/16 23:32 Respiratory Note by Elbert Cox PT LUNGS SOUND DIMINISHED MOST OF THE TIME. SOMETIMES I HEAR EXP WHEEZING. 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 I ASKED THE PT IF HE FELT SOB AND HE SAID, "A LITTLE". I ASKED IF HE FELT THE TX AND O2 HELPED AND HE STATED YES. PT ALSO STATED HE HAD A SORE THROAT. Initialized on 08/03/16 23:32 - END OF NOTE Assessment/Plan (1) COPD with acute exacerbation Current Visit: Yes Status: Acute Assessment & Plan: continue current management with rocephin, zithromax, IV solu medrol and neb treatments Code(s): J44.1 - CHRONIC OBSTRUCTIVE PULMONARY DISEASE W (ACUTE) EXACERBATION (2) Enlarged lymph nodes, unspecified Current Visit: Yes Status: Acute Code(s): R59.9 - ENLARGED LYMPH NODES, UNSPECIFIED (3) Seizure Current Visit: Yes Status: Acute Assessment & Plan: uncertain if this was seizure or syncopal from coughing hard, EEG completed this am. report pending. Code(s): R56.9 - UNSPECIFIED CONVULSIONS
[2016-08-04] MEDS: ENOXAPARIN SODIUM SQ SCH (09:29)
[2016-08-04] MEDS: VITAMIN D PO SCH (09:29)
[2016-08-04] MEDS: Ecotrin 325 MG PO SCH (09:29)
[2016-08-04] MEDS: Flomax 0.4 MG PO SCH ×2 (09:29→22:10)
[2016-08-04] MEDS: Cardizem 30 MG PO SCH ×4 (09:30→22:10)
[2016-08-04] MEDS: Pepcid 20 MG VIAL IV SCH ×2 (09:30→22:11)
[2016-08-04] MEDS: TENORMIN 50 MG PO SCH (09:34)
[2016-08-04] MEDS: BETAMETHASONE DIPROPIONATE TOP SCH ×2 (11:16→22:10)
[2016-08-04] MEDS: Dextrose 5% -0.45 NaCl 1000 ML 1,000 ML IV SCH ×2 (12:12→22:22)
[2016-08-04] MEDS: Ativan 2 MG/1 ML VIAL IV PRN (15:17)
[2016-08-04] MEDS: Zocor 10MG PO SCH (22:10)
[2016-08-04] MEDS: ROCEPHIN 1 Gm-D5w 50 ml Bag** 50 ML IV SCH (22:11)
[2016-08-04] MEDS: Zithromax 500 MG/ 250 ML NaCl Premix 250 ML IV SCH (23:20)
[2016-08-05] MEDS: solu-MEDROL 125 MG IV SCH ×4 (01:42→18:32)
[2016-08-05] MEDS: DUONEB 0.5-3 MG/3 ml Neb IH SCH ×6 (02:37→23:36)
--- NOTE | 2016-08-05 08:25 | PCM.NOTE ---
Date and Time: 08/05/16821 Subjective Assessment: breathing has improved, cough has improved. patient reports he had another "spell" on the side of his bed. states it only lasted a few seconds as his was present, he was coughing then seemed to lose consciousness briefly. he immediately was awake and oriented after the incident. nothing alarmed on telemetry, nursing came to room and he was normal Objective Exam General Appearance: no apparent distress, alert Respiratory Exam: normal breath sounds, lungs clear, No respiratory distress Cardiovascular Exam: regular rate/rhythm, normal heart sounds Gastrointestinal/Abdomen Exam: soft, No tenderness, No mass Extremity Exam: normal inspection, normal range of motion OBJECTIVE DATA Vital Signs: Vital Signs - 24 hr Temp Pulse Resp BP BP Pulse Ox 08/05/16 08:00 97.8 F 84 24 100/58 91 L 08/05/16 07:13 91 H 18 94 L 08/05/16 04:00 98.0 F 94 H 26 H 151/120 96 08/05/16 02:40 91 H 20 92 L 08/05/16 00:00 97.8 F 91 H 24 109/56 94 L 08/04/16 22:00 81 18 95 08/04/16 20:00 97.7 F 88 20 112/53 92 L 08/04/16 18:47 88 18 92 L 08/04/16 16:00 97.6 F 112 H 24 121/53 93 L 08/04/16 14:00 89 22 96 08/04/16 12:00 97.5 F 102 H 22 125/62 94 L 08/04/16 10:44 88 24 96 08/04/16 09:34 86 118/62 Oxygen-Last 24 hours O2 Percentage 3 Liters = 32% O2 Percentage 3 Liters = 32% O2 Percentage 3 Liters = 32% O2 Percentage 3 Liters = 32% O2 Percentage 3 Liters = 32% O2 Percentage 3 Liters = 32% Pain Assessment - Last Documented Pain Intensity 1 Pain Scale Used 0-10 Pain Scale Intake and Output: Intake & Output 08/02/16 08/03/16 08/04/16 08/05/16 11:59 11:59 11:59 11:59 Intake Total 807 2452 1895 600 Output Total 475 2150 Balance 063 506 8668 600 Weight 82.5 kg 82.5 kg Radiology Exams: Radiology Procedures Category Date Time Status CHEST 2 VIEWS (PA AND LAT) Routine Exams 08/03/16 07:57 Completed ECHO W/2D AND DOPPLER [US] Routine Exams 08/05/16 08:19 Ordered Assessment/Plan (1) COPD with acute exacerbation Current Visit: Yes Status: Acute Assessment & Plan: improved, will attempt to wean oxygen today. Code(s): J44.1 - CHRONIC OBSTRUCTIVE PULMONARY DISEASE W (ACUTE) EXACERBATION (2) Enlarged lymph nodes, unspecified Current Visit: Yes Status: Acute Code(s): R59.9 - ENLARGED LYMPH NODES, UNSPECIFIED (3) Syncope Current Visit: Yes Status: Acute Assessment & Plan: EEG normal, more c/w brief syncope. will r/o CA, get echo Code(s): R55 - SYNCOPE AND COLLAPSE
[2016-08-05] MEDS: Dextrose 5% -0.45 NaCl 1000 ML 1,000 ML IV SCH ×2 (10:52→18:31)
[2016-08-05] MEDS: TENORMIN 50 MG PO SCH (10:54)
[2016-08-05] MEDS: Flomax 0.4 MG PO SCH ×2 (10:54→22:27)
[2016-08-05] MEDS: VITAMIN D PO SCH (10:54)
[2016-08-05] MEDS: Ecotrin 325 MG PO SCH (10:54)
[2016-08-05] MEDS: Pepcid 20 MG VIAL IV SCH ×2 (10:54→22:27)
[2016-08-05] MEDS: Cardizem 30 MG PO SCH ×4 (10:54→22:27)
[2016-08-05] MEDS: BETAMETHASONE DIPROPIONATE TOP SCH ×2 (11:01→22:28)
[2016-08-05] MEDS: ENOXAPARIN SODIUM SQ SCH (11:06)
[2016-08-05] MEDS: ROCEPHIN 1 Gm-D5w 50 ml Bag** 50 ML IV SCH (22:27)
[2016-08-05] MEDS: Zocor 10MG PO SCH (22:28)
[2016-08-05] MEDS: Zithromax 500 MG/ 250 ML NaCl Premix 250 ML IV SCH (23:40)
[2016-08-06] MEDS: Dextrose 5% -0.45 NaCl 1000 ML 1,000 ML IV SCH ×2 (01:16→06:39)
[2016-08-06] MEDS: solu-MEDROL 125 MG IV SCH ×2 (01:23→07:46)
[2016-08-06] MEDS: DUONEB 0.5-3 MG/3 ml Neb IH SCH ×3 (03:37→10:22)
[2016-08-06 06:25] LABS: Mean Cell Volume 93.3 fl (78-100); Mean Platelet Volume 10.1 fl (6-9.5); Platelet Count 137 K/mm3 (150-450); Red Blood Count 4.04 M/mm3 (4.1-5.6); Red Cell Distribution Width 14.3 % (11.5-14.0); White Blood Count 7.1 K/mm3 (4.0-10.5)
[2016-08-06 06:44] LABS: Mean Corpuscular Hemoglobin 30.6 pg (26-32)
[2016-08-06 06:51] LABS: ALBUMIN 2.8 g/dL (3.4-5.0); ALKALINE PHOSPHATASE 41 U/L (46-116); ANION GAP 11.9 MEQ/L (5-15); BILIRUBIN,TOTAL 0.6 mg/dL (0.2-1.0); BLOOD UREA NITROGEN 23 mg/dL (9-20); CHLORIDE 109 mEq/L (98-107); Carbon Dioxide 23.4 mEq/L (21-32); Glucose 144 MG/DL (70-110); MAGNESIUM 2.2 mg/dL (1.8-2.4); Potassium 3.9 mEq/L (3.5-5.1); SGOT/AST 14 U/L (15-37); SGPT/ALT 25 U/L (12-78); SODIUM 140 mEq/L (136-145); Total Protein 5.5 gm/dL (6.4-8.2)
--- NOTE | 2016-08-06 08:22 | ECHO ---
DATE OF PROCEDURE: 08/05/2016 CLINICAL INFORMATION: Syncope. The M-mode, 2D and Doppler echocardiogram including color flow Doppler shows normal contractility of the left ventricle with an ejection fraction calculated at 64%. The aortic root is normal with a dimension of 3.4 cm. The left atrium is normal in size with a dimension of 3.9 cm. The left ventricle is severely dilated with a dimension of 7.4 cm. The septal wall thickness is borderline thickened at 1.2 cm. Left ventricular posterior wall thickness is 1.1 cm which is at the upper limits of normal. There is mild mitral regurgitation associated with mitral valve leaflet thickening. There is mild tricuspid regurgitation associated with mild pulmonary hypertension. Right ventricular systolic pressure is calculated to be 32 mm of Mercury. There is no pericardial effusion. The pulmonic valve is not well visualized. The aortic valve is unremarkable. There is no pericardial effusion present. IMPRESSION: 1) MILD MITRAL REGURGITATION. 2) MILD TRICUSPID REGURGITATION. 3) MILD PULMONARY HYPERTENSION. 4) BORDERLINE SYMMETRIC LEFT VENTRICULAR HYPERTROPHY. 5) SEVERELY DILATED LEFT VENTRICLE.
--- NOTE | 2016-08-06 09:14 | PCM.DS ---
Discharge Summary Date of Admission: 08/02/16 01:11 Admitting Physician: KAYKAY CARRASQUILLO Consults: Consults on Case 08/02/16 08:00 Consult Neurology ROUTINE Consult Pulmonology ROUTINE Primary Care Provider: GALEN COLE ZACHARY Allergies Allergies levofloxacin Allergy (Intermediate, Verified 08/01/16 22:38) [facility] Summary - Hospital Course Hospital Course: patient admitted with cough, wheezing and felt poorly. dx with copd exacerbation , had some near syncopal type episodes. EEG was normal, AL was ruled out. echo was done and pending at time of discharge, nothing alarming on preliminary report - Vitals & Intake/Output Vital Signs: Vital Signs Temperature 98 F 08/06/16 07:17 Pulse Rate 80 08/06/16 07:17 Respiratory Rate 20 08/06/16 07:17 Blood Pressure 111/53 08/06/16 07:17 O2 Sat by Pulse Oximetry 96 08/06/16 07:17 Oxygen-Last Documented O2 Percentage 1 Liter = 24% Intake & Output: Intake & Output 08/03/16 08/04/16 08/05/16 08/06/16 11:59 11:59 11:59 11:59 Intake Total 2452 9507 587 9276 Output Total 2150 Balance 302 2814 803 6849 Weight 82.5 kg - Lab Result Diagrams: 08/06/16 05:50 08/06/16 05:50 Lab Results-Last 24 Hrs: Lab Results-Last 24 Hours 08/05/16 08/05/16 08/05/16 Range/Units 08:30 11:30 14:30 WBC (4.0-10.5) K/mm3 RBC (4.1-5.6) M/mm3 Hgb (12.5-18.0) gm/dl Hct (42-50) % MCV (78-100) fl MCH (26-32) pg MCHC (32-36) g/dl RDW (11.5-14.0) % Plt Count (150-450) K/mm3 MPV (6-9.5) fl Sodium (136-145) mEq/L Potassium (3.5-5.1) mEq/L Chloride (98-107) mEq/L Carbon Dioxide (21-32) mEq/L Anion Gap (5-15) MEQ/L BUN (9-20) mg/dL Creatinine (0.55-1.30) mg/dl Estimated GFR ML/MIN Glucose (70-110) MG/DL Calcium (8.5-10.1) mg/dL Magnesium (1.8-2.4) mg/dL Total Bilirubin (0.2-1.0) mg/dL AST (15-37) U/L ALT (12-78) U/L Alkaline Phosphatase (46-116) U/L Troponin I < 0.017 < 0.017 < 0.017 (0.000-0.056) ng/ml Serum Total Protein (6.4-8.2) gm/dL Albumin (3.4-5.0) g/dL 08/05/16 08/05/16 08/06/16 Range/Units 17:42 20:44 05:50 WBC 7.1 (4.0-10.5) K/mm3 RBC 4.04 L (4.1-5.6) M/mm3 Hgb 12.4 L (12.5-18.0) gm/dl Hct 37.7 L (42-50) % MCV 93.3 (78-100) fl MCH 30.6 (26-32) pg MCHC 32.9 (32-36) g/dl RDW 14.3 H (11.5-14.0) % Plt Count 137 L (150-450) K/mm3 MPV 10.1 H (6-9.5) fl Sodium (136-145) mEq/L Potassium (3.5-5.1) mEq/L Chloride (98-107) mEq/L Carbon Dioxide (21-32) mEq/L Anion Gap (5-15) MEQ/L BUN (9-20) mg/dL Creatinine (0.55-1.30) mg/dl Estimated GFR ML/MIN Glucose (70-110) MG/DL Calcium (8.5-10.1) mg/dL Magnesium (1.8-2.4) mg/dL Total Bilirubin (0.2-1.0) mg/dL AST (15-37) U/L ALT (12-78) U/L Alkaline Phosphatase (46-116) U/L Troponin I < 0.017 < 0.017 (0.000-0.056) ng/ml Serum Total Protein (6.4-8.2) gm/dL Albumin (3.4-5.0) g/dL 08/06/16 Range/Units 05:50 WBC (4.0-10.5) K/mm3 RBC (4.1-5.6) M/mm3 Hgb (12.5-18.0) gm/dl Hct (42-50) % MCV (78-100) fl MCH (26-32) pg MCHC (32-36) g/dl RDW (11.5-14.0) % Plt Count (150-450) K/mm3 MPV (6-9.5) fl Sodium 140 (136-145) mEq/L Potassium 3.9 (3.5-5.1) mEq/L Chloride 109 H (98-107) mEq/L Carbon Dioxide 23.4 (21-32) mEq/L Anion Gap 11.9 (5-15) MEQ/L BUN 23 H (9-20) mg/dL Creatinine 1.09 (0.55-1.30) mg/dl Estimated GFR > 60 ML/MIN Glucose 144 H (70-110) MG/DL Calcium 7.8 L (8.5-10.1) mg/dL Magnesium 2.2 (1.8-2.4) mg/dL Total Bilirubin 0.6 (0.2-1.0) mg/dL AST 14 L (15-37) U/L ALT 25 (12-78) U/L Alkaline Phosphatase 41 L (46-116) U/L Troponin I (0.000-0.056) ng/ml Serum Total Protein 5.5 L (6.4-8.2) gm/dL Albumin 2.8 L (3.4-5.0) g/dL - Radiology Exams Ordered Rad Exams-Entire Visit: Radiology Procedures Category Date Time Status ECHO W/2D AND DOPPLER [US] Routine Exams 08/05/16 08:19 Draft Impressions Echocardiogram Ultrasound 08/05/16 08:19 IMPRESSION: 1) MILD MITRAL REGURGITATION. 2) MILD TRICUSPID REGURGITATION. 3) MILD PULMONARY HYPERTENSION. 4) BORDERLINE SYMMETRIC LEFT VENTRICULAR HYPERTROPHY. 5) SEVERELY DILATED LEFT VENTRICLE. - Procedures and Test Procedures and Tests throughout Hospitalization: Therapy Orders & Screens 08/02/16 01:28 Oxygen VENTI-MASK 40% Comment: wean as tolerated to keep saturations above 92% Diagnosis: Shortness of Breath 08/02/16 03:53 neb [Respiratory Nebulizer] Q4H Comment: Diagnosis: SOB, RESPIRATORY DISTRESS, HYPOXEMIA 08/02/16 09:00 EEG 41-60 Minutes (Normal) ONCE Comment: Reason For Exam: seizure like activity, new onset Diagnosis: SOB, RESPIRATORY DISTRESS, HYPOXEMIA 08/02/16 09:58 EKG ROUTINE Comment: Diagnosis: SOB, RESPIRATORY DISTRESS, HYPOXEMIA Discharge Exam General Appearance: no apparent distress, alert Respiratory Exam: normal breath sounds, lungs clear, No respiratory distress Cardiovascular Exam: regular rate/rhythm, normal heart sounds Gastrointestinal/Abdomen Exam: soft, No tenderness, No mass Extremity Exam: normal inspection, normal range of motion Final Diagnosis/Problem List - Final Discharge Diagnosis/Problem (1) COPD with acute exacerbation Current Visit: Yes Status: Acute Assessment & Plan: improved (2) Enlarged lymph nodes, unspecified Current Visit: Yes Status: Acute (3) Syncope Current Visit: Yes Status: Acute Assessment & Plan: will need cardiology f/u after discharge, will set up with prerna. hx of cad as well - Discharge Disposition: Home, Self-Care Condition: Good Prescriptions: Albuterol Sulfate [Albuterol Sulfate Hfa] 2 puffs IH Q4-6HPRN PRN #2 [email or web address] PRN Reason: Cough Prednisone 20 mg [Deltasone 20 mg] 20 mg PO UD #18 tablet Doxycycline Hyclate 100 mg PO BID #20 capsule Medications: Home Medications Aspirin 81 mg PO DAILY 08/02/16 [Confirmed 08/02/16] Atenolol 12.5 mg PO DAILY 08/02/16 [Confirmed 08/02/16] Cholecalciferol (Vitamin D3) [Vitamin D3] 1,000 unit PO DAILY 08/02/16 [ Confirmed 08/02/16] Lovastatin 10 mg PO HS 08/02/16 [Confirmed 08/02/16] Tamsulosin HCl 0.4 mg [Flomax 0.4 MG] 0.4 mg PO BID 08/02/16 [Confirmed ] Active Inpatient Medications Acetaminophen (Tylenol 325 Mg) 650 mg PO Q4H PRN PRN PRN Reason: PAIN AND/OR FEVER Stop: 09/01/16 01:27 Albuterol/Ipratropium (Duoneb 0.5-3 Mg/3 Ml Neb) 3 ml IH Q4HRT ROHIT Stop: 09/01/16 02:59 Last Admin: 08/06/16 06:56 Dose: 3 ml Aspirin (Ecotrin 325 Mg) 325 mg PO QAM ROHIT Stop: 09/01/16 09:59 Last Admin: 08/05/16 10:54 Dose: 325 mg Atenolol (Tenormin 50 Mg) 12.5 mg PO DAILY ROHIT Stop: 09/01/16 15:59 Last Admin: 08/05/16 10:54 Dose: 12.5 mg Betamethasone Dipropionate (Betamethasone Dipropionate) 0 gm TOP BID ROHIT Stop: 09/01/16 10:14 Last Admin: 08/05/16 22:28 Dose: 15 gm Cholecalciferol (Vitamin D) 1,000 unit PO DAILY ROHIT Stop: 09/01/16 15:59 Last Admin: 08/05/16 10:54 Dose: 1,000 unit Diltiazem HCl (Cardizem 30 Mg) 30 mg PO QID ROHIT Stop: 09/02/16 09:59 Last Admin: 08/05/16 22:27 Dose: 30 mg Enoxaparin Sodium (Enoxaparin Sodium) 40 mg SQ DAILY ROHIT Stop: 09/01/16 09:59 Last Admin: 08/05/16 11:06 Dose: 40 mg Famotidine (Pepcid 20 Mg Vial) 20 mg IV Q12HT RHOIT Stop: 09/01/16 09:59 Last Admin: 08/05/16 22:27 Dose: 20 mg Ceftriaxone Sodium/Dextrose (Rocephin 1 Gm-D5w 50 Ml Bag) 50 mls @ 100 mls/ hr IV QPM ROHIT Stop: 09/01/16 21:59 Last Admin: 08/05/16 22:27 Dose: 100 mls/hr Azithromycin (Zithromax 500 Mg/ 250 Ml Nacl Premix) 250 mls @ 125 mls/hr IV Q24H [facility]OH[facility] Stop: 09/01/16 09:59 Last Admin: 08/05/16 23:40 Dose: 125 mls/hr Dextrose/Sodium Chloride (Dextrose 5% -0.45 Nacl 1000 Ml) 1,000 mls @ 100 mls/ hr IV .Q10H ROHIT Stop: 09/01/16 10:14 Last Admin: 08/06/16 06:39 Dose: 100 mls/hr Lorazepam (Ativan 2 Mg/1 Ml Vial) 1 mg IV PRN PRN PRN Reason: SEIZURES Stop: 09/01/16 09:57 Last Admin: 08/04/16 15:17 Dose: 1 mg Methylprednisolone Sodium Succinate (Solu-Medrol 125 Mg) 80 mg IV Q6H [facility] Stop: 09/01/16 01:27 Last Admin: 08/06/16 07:46 Dose: 80 mg Simvastatin (Zocor 10mg) 5 mg PO HS [facility] Stop: 09/01/16 21:59 Last Admin: 08/05/16 22:28 Dose: 5 mg Tamsulosin HCl (Flomax 0.4 Mg) 0.4 mg PO BID [facility] Stop: 09/01/16 21:59 Last Admin: 08/05/16 22:27 Dose: 0.4 mg Follow up with: NATALEE POTTS NP [NON-STAFF PHY W/O PRIVILEGES] - 1 Week ALLISON MEJIA [CONSULTING PHYSICIAN] - 1 Week
[2016-08-06] MEDS: BETAMETHASONE DIPROPIONATE TOP SCH (10:02)
[2016-08-06] MEDS: Cardizem 30 MG PO SCH (10:03)
[2016-08-06] MEDS: Ecotrin 325 MG PO SCH (10:03)
[2016-08-06] MEDS: Pepcid 20 MG VIAL IV SCH (10:04)
[2016-08-06] MEDS: Flomax 0.4 MG PO SCH (10:04)
[2016-08-06] MEDS: ENOXAPARIN SODIUM SQ SCH (10:04)
[2016-08-06] MEDS: TENORMIN 50 MG PO SCH (10:05)
[2016-08-06] MEDS: VITAMIN D PO SCH (10:07)
[2016-08-06 11:36] VITALS: BP 120/58; PULSE 87; O2SAT 96
== END 2016-08-06 12:00 | disposition home or self-care (01) | DRG 192 ==
LOC: ED 22:36 → ICU 08-02 01:11 → MED SURG 08-03 12:48
PROVIDERS: ADMIT Internal Medicine; ATTEND Internal Medicine
DX: J44.1 Chronic obstructive pulmonary disease with (acute) exacerbation (principal); R59.9 Enlarged lymph nodes, unspecified; R55 Syncope and collapse; I10 Essential (primary) hypertension; E78.5 Hyperlipidemia, unspecified; I34.0 Nonrheumatic mitral (valve) insufficiency; I07.1 Rheumatic tricuspid insufficiency; I27.2 Other secondary pulmonary hypertension; N40.0 Benign prostatic hyperplasia without lower urinary tract symptoms; I25.10 Atherosclerotic heart disease of native coronary artery without angina pectoris; Z98.61 Coronary angioplasty status; R00.0 Tachycardia, unspecified; G40.909 Epilepsy, unspecified, not intractable, without status epilepticus; Z79.82 Long term (current) use of aspirin
CPT/HCPCS: 36000; 36415; 36600; 70450; 71010; 71020; 80048; 80053; 82375; 82803; 83605; 83735; 83880; 84484; 85025; 85379; 85610; 85730; 87040; 87400; 93005; 93041; 93306; 94640; 94760; 94770; 95812; 96360; 96365; 96367; 99284; J0456; J0696; J1650; J2060; J2930; J3475

== ENCOUNTER 2016-09-29 13:48 | Observation (INO) | payer MEDICARE ==
[2016-09-29] MEDS ORDERED: Pepcid 20 MG VIAL IV ONE ×2 (13:49→13:59)
[2016-09-29] MEDS ORDERED: solu-MEDROL 125 MG IV ONE (13:49)
[2016-09-29] MEDS ORDERED: PROVENTIL 2.5 MG/3 ML NEB IH ONE ×2 (13:56→14:21)
--- NOTE | 2016-09-29 13:56 | ERPHSYRPT ---
- History of Present Illness Time Seen by Provider: 09/29/16 13:49 Source: patient, EMS, old records Exam Limitations: no limitations Physician History: patient presents by EMSwith 3 day history of progressive shortness of breath, with a cough productive of white sputum; no documented fever; no chest pain; with audible wheezes; improved with DuoNeb in route; nonsmoker;no recent travel or exposures; recent cardiac stents but no chest discomfort; no orthopnea or edema Timing/Duration: today (Worse), day(s) (3onset), gradual onset, worse Severity of Dyspnea-Max: severe Severity of Dyspnea-Current: moderate Possible Cause: occasional episodes Modifying Factors: Improves With: rest Associated Symptoms: cough, wheezing, productive cough International travel in last 2 weeks: No Allergies/Adverse Reactions: levofloxacin Allergy (Intermediate, Verified 09/29/16 13:54) Hives Home Medications: Aspirin 81 mg PO DAILY 08/02/16 [History] Atenolol 12.5 mg PO DAILY 08/02/16 [History] Cholecalciferol (Vitamin D3) [Vitamin D3] 1,000 unit PO DAILY 08/02/16 [History] Lovastatin 10 mg PO HS 08/02/16 [History] Hx Tetanus, Diphtheria Vaccination/Date Given: Yes Hx Influenza Vaccination/Date Given: Yes Hx Pneumococcal Vaccination/Date Given: Yes - Review of Systems Constitutional: No Symptoms Eyes: No Symptoms Ears, Nose, & Throat: No Symptoms Respiratory: Cough, Dyspnea, Dyspnea on Exertion (CONTRERAS), Wheezing Cardiac: No Chest Pain, No Edema, No Palpitations, No Syncope Abdominal/Gastrointestinal: No Abdominal Pain, No Nausea, No Vomiting, No Diarrhea Genitourinary Symptoms: No Symptoms Musculoskeletal: No Symptoms Skin: No Symptoms Neurological: No Symptoms Psychological: No Symptoms Endocrine: No Symptoms Hematologic/Lymphatic: No Symptoms Immunological/Allergic: No Symptoms - Past Medical History Pertinent Past Medical History: Yes Neurological History: No Pertinent History ENT History: Cataracts Cardiac History: Angina, Coronary Artery Disease, High Cholesterol, Hypertension Respiratory History: COPD, Pneumonia Endocrine Medical History: No Pertinent History Musculoskeletal History: Arthritis GI Medical History: Hemorrhoids History: No Pertinent History Psycho-Social History: No Pertinent History Male Reproductive Disorders: Other - Past Surgical History Past Surgical History: Yes Neuro Surgical History: No Pertinent History Cardiac: Cardiac Catheterization, Cardiac Stent, Other Respiratory: No Pertinent History Gastrointestinal: Cholecystectomy Genitourinary: No Pertinent History Male Surgical History: No Pertinent History Other Surgical History: heart cath with 2 stents. Apr 2016 pt had biopsy of mediastinum lymphnodes - Social History Smoking Status: Never smoker Exposure to second hand smoke: Yes Alcohol Use: None Drug Use: none Patient Lives Alone: No Significant Family History: no pertinent family hx - Nursing Vital Signs Nursing Vital Signs: Initial Vital Signs Temperature 98.4 F Temperature Source Oral Pulse Rate 70 Respiratory Rate 16 Blood Pressure [] 118/61 Pain Intensity 0 - Physical Exam General Appearance: moderate distress, alert Eye Exam: PERRL/EOMI, eyes nml inspection, No photophobia Ears, Nose, Throat Exam: hearing grossly normal, normal ENT inspection, normal pharynx Neck Exam: normal inspection, non-tender, supple, full range of motion, No meningismus, No carotid bruit, No JVD Respiratory Exam: respiratory distress (mild), airway intact, diminished breath sounds, prolonged expirations, wheezing, No normal breath sounds, No chest tenderness, No lungs clear Cardiovascular/Chest Exam: normal heart sounds, regular rate/rhythm, normal peripheral pulses, No murmur, No edema, No JVD Abdominal/Gastrointestinal Exam: soft, normal bowel sounds, No tenderness, No guarding, No rebound, No organomegaly Rectal Exam: deferred Extremity Exam: non-tender, normal range of motion, normal inspection, no pedal edema, No calf tenderness, No shilpa's sign Peripheral Pulses Exam: carotid (R): 4+, carotid (L): 4+, femoral (R): 4+, femoral (L): 4+, dorsalis-pedis (R): 4+, dorsalis-pedis (L): 4+ Neurologic Exam: alert, oriented x 3, cooperative, commercial manager II-XII nml as tested, normal mood/affect Skin Exam: normal color, warm, dry, No rash, No petechiae, No cyanosis SpO2 Interpretation: normal, borderline oxygenation, O2 applied SpO2: 91 Oxygen Delivery: Room Air (no edema) - Course Nursing assessment & vital signs reviewed: Yes EKG Interpreted by Me: RATE (77), Sinus Rhythm, NORMAL AXIS, NORMAL INTERVALS, NORMAL QRS, Q-wave, Non-specific ST Changes Rhythm Strip: Rate (76), Normal Sinus Rhythm - Radiology Exams Chest X-ray Interpretation: Reviewed by me, Teleradiologist Report, Negative, No Pneumonia, No Pneumothorax, Nml Heart Size, Nml Mediastinum, Other (persistant LLL atelectasis) Ordered Tests: Active Orders 24 hr Category Date Time Status Family Development Extension Specialist STAT Care 09/29/16 13:49 Active EKG-ER Only STAT Care 09/29/16 13:49 Active IV Insertion STAT Care 09/29/16 13:49 Active Oxygen-ED Only NASAL CANNULA 2 lpm Care 09/29/16 13:56 Active Pulse Oximetry (ED) STAT Care 09/29/16 13:49 Active CHEST 1 VIEW (PORTABLE) Stat Exams 09/29/16 13:50 Completed CBC W DIFF Stat Lab 09/29/16 14:00 Completed CMP Stat Lab 09/29/16 14:00 Completed D-DIMER QUANTITATION Stat Lab 09/29/16 14:00 Completed Lactic Acid Urgent Lab 09/29/16 14:15 Completed MAGNESIUM Stat Lab 09/29/16 14:00 Completed NT PRO BNP Stat Lab 09/29/16 14:00 Completed TROPONIN Stat Lab 09/29/16 14:00 Completed Peak Expiratory Flow Rate ONCE RT 09/29/16 13:49 Completed Respiratory Nebulizer STAT RT 09/29/16 13:57 Completed Transfer Order Routine Transfer 09/29/16 15:45 Ordered Medication Summary Generic Name Dose Route Start Last Admin Trade Name Freq PRN Reason Stop Dose Admin Sodium Chloride 1,000 mls @ 100 mls/hr 09/29/16 14:00 09/29/16 14:00 Sodium Chloride 0.9% 1000 Ml IV 10/29/16 13:59 100 mls/hr .Q10H ROHIT Administration Ceftriaxone Sodium/Dextrose 50 mls @ 100 mls/hr 09/29/16 15:44 Rocephin 1 Gm-D5w 50 Ml Bag IV 09/29/16 16:13 STAT ONE Discontinued Medications Generic Name Dose Route Start Last Admin Trade Name Freq PRN Reason Stop Dose Admin Albuterol Sulfate 2.5 mg 09/29/16 13:56 09/29/16 14:23 Proventil 2.5 Mg/3 Ml Neb IH 09/29/16 13:57 2.5 mg STAT ONE Administration Albuterol Sulfate Confirm 09/29/16 14:21 Proventil 2.5 Mg/3 Ml Neb Administered 09/29/16 14:22 Dose 2.5 mg IH .STK-MED ONE Famotidine 20 mg 09/29/16 13:49 09/29/16 14:00 Pepcid 20 Mg Vial IV 09/29/16 13:50 20 mg STAT ONE Administration Famotidine Confirm 09/29/16 13:59 Pepcid 20 Mg Vial Administered 09/29/16 14:00 Dose 20 mg IV .STK-MED ONE Sodium Chloride Confirm 09/29/16 13:59 Sodium Chloride 0.9% 1000 Ml Administered 09/29/16 14:00 Dose 1,000 mls @ ud .ROUTE .STK-MED ONE Methylprednisolone Sodium Succinate 125 mg 09/29/16 13:49 09/29/16 14:00 Solu-Medrol 125 Mg IV 09/29/16 13:50 125 mg STAT ONE Administration Methylprednisolone Sodium Succinate Confirm 09/29/16 13:59 Solu-Medrol 125 Mg Administered 09/29/16 14:00 Dose 125 mg .ROUTE .STK-MED ONE Lab/Rad Data: Laboratory Result Diagrams 09/29/16 14:00 09/29/16 14:00 Laboratory Results 09/29/16 09/29/16 09/29/16 Range/Units 14:15 14:00 14:00 WBC (4.0-10.5) K/mm3 RBC (4.1-5.6) M/mm3 Hgb (12.5-18.0) gm/dl Hct (42-50) % MCV (78-100) fl MCH (26-32) pg MCHC (32-36) g/dl RDW (11.5-14.0) % Plt Count (150-450) K/mm3 MPV (6-9.5) fl Gran % (36.0-66.0) % Lymphocytes % (24.0-44.0) % Monocytes % (0.0-12.0) % Eosinophils % (0.00-5.0) % Basophils % (0.0-0.4) % Basophils # (0-0.4) D-Dimer (0.00-0.49) mg/L Sodium (136-145) mEq/L Potassium (3.5-5.1) mEq/L Chloride (98-107) mEq/L Carbon Dioxide (21-32) mEq/L Anion Gap (5-15) MEQ/L BUN (9-20) mg/dL Creatinine (0.55-1.30) mg/dl Estimated GFR ML/MIN Glucose (70-110) MG/DL Lactic Acid 1.2 (0.4-2.0) Calcium (8.5-10.1) mg/dL Magnesium 1.9 (1.8-2.4) mg/dL Total Bilirubin (0.2-1.0) mg/dL AST (15-37) U/L ALT (12-78) U/L Alkaline Phosphatase (46-116) U/L Troponin I (0.000-0.056) ng/ml NT-Pro-B Natriuret Pep (0-125) pg/ml Serum Total Protein (6.4-8.2) gm/dL Albumin (3.4-5.0) g/dL Influenza Type A Ag NEGATIVE (NEGATIVE) Influenza Type B Ag NEGATIVE (NEGATIVE) RSV (PCR) NEGATIVE (Negative) 09/29/16 09/29/16 09/29/16 Range/Units 14:00 14:00 14:00 WBC 5.8 (4.0-10.5) K/mm3 RBC 4.28 (4.1-5.6) M/mm3 Hgb 13.4 (12.5-18.0) gm/dl Hct 39.7 L (42-50) % MCV 92.8 (78-100) fl MCH 31.3 (26-32) pg MCHC 33.8 (32-36) g/dl RDW 15.0 H (11.5-14.0) % Plt Count 125 L (150-450) K/mm3 MPV 9.4 (6-9.5) fl Gran % 46.3 (36.0-66.0) % Lymphocytes % 31.9 (24.0-44.0) % Monocytes % 6.6 (0.0-12.0) % Eosinophils % 14.7 H (0.00-5.0) % Basophils % 0.5 (0.0-0.4) % Basophils # 0.03 (0-0.4) D-Dimer 0.542 H* (0.00-0.49) mg/L Sodium 146 H (136-145) mEq/L Potassium 3.9 (3.5-5.1) mEq/L Chloride 110 H (98-107) mEq/L Carbon Dioxide 22.6 (21-32) mEq/L Anion Gap 17.1 H (5-15) MEQ/L BUN 13 (9-20) mg/dL Creatinine 1.50 H (0.55-1.30) mg/dl Estimated GFR 49 ML/MIN Glucose 110 (70-110) MG/DL Lactic Acid (0.4-2.0) Calcium 8.7 (8.5-10.1) mg/dL Magnesium (1.8-2.4) mg/dL Total Bilirubin 1.2 H (0.2-1.0) mg/dL AST 19 (15-37) U/L ALT 19 (12-78) U/L Alkaline Phosphatase 49 (46-116) U/L Troponin I < 0.017 (0.000-0.056) ng/ml NT-Pro-B Natriuret Pep 186 H (0-125) pg/ml Serum Total Protein 6.8 (6.4-8.2) gm/dL Albumin 3.7 (3.4-5.0) g/dL Influenza Type A Ag (NEGATIVE) Influenza Type B Ag (NEGATIVE) RSV (PCR) (Negative) reviewed - Progress Progress: re-examined (after medication and x-ray) Air Movement: fair Progress Note: 09/29/16 13:56 will give meds and IV fluids; get xr, EKG and labs and recheck 09/29/16 14:27 recheck and some improvement; increased movement of air; decreased wheezing and resp distress; family at bedside; CXR NAD; cbc ok 09/29/16 15:42 Dr Candelaria consulted and will admit; will start on ATBs; patient and family notified of admission 09/29/16 15:49 Will hydrate and reevaluate renal function and then possibly get a CT Chest to RO PE if indicated Blood Culture(s) Obtained: No Antibiotics given: Yes Discussed with : Bari (consulted and will admit) Will see patient in: hospital (observation) Counseled pt/family regarding: lab results, diagnosis, need for follow-up, rad results - Departure Time of Disposition: 15:43 Departure Disposition: Observation Clinical Impression: COPD with acute exacerbation, SOB (shortness of breath) Condition: Serious Critical Care Time: No Referrals: NATALEE POTTS NP [Primary Care Provider] - Instructions: Chronic Obstructive Pulmonary Disease
[2016-09-29] MEDS ORDERED: Sodium Chloride 0.9% 1000 ML 1,000 ML ONE (13:59)
[2016-09-29] MEDS ORDERED: solu-MEDROL 125 MG ONE (13:59)
[2016-09-29] MEDS ORDERED: Sodium Chloride 0.9% 1000 ML 1,000 ML IV SCH (14:00)
[2016-09-29 14:10] LABS: BASOPHIL % 0.5 % (0.0-0.4); Eosinophil % 14.7 % (0.00-5.0); Granulocytes % 46.3 % (36.0-66.0); Lymphocytes % 31.9 % (24.0-44.0); Mean Cell Volume 92.8 fl (78-100); Mean Corpuscular Hemoglobin 31.3 pg (26-32); Mean Platelet Volume 9.4 fl (6-9.5); Monocytes % 6.6 % (0.0-12.0); Platelet Count 125 K/mm3 (150-450); Red Blood Count 4.28 M/mm3 (4.1-5.6); White Blood Count 5.8 K/mm3 (4.0-10.5)
--- NOTE | 2016-09-29 14:20 | XRAY ---
Indication: Chest tightness and short of breath 3-4 days. Comparison: August 03, 2016. Portable chest unchanged again with minimal left base infiltrate/atelectasis. Remaining lungs clear. Heart is not enlarged. No new cardiopulmonary abnormalities.
[2016-09-29 14:53] LABS: ALBUMIN 3.7 g/dL (3.4-5.0); ALKALINE PHOSPHATASE 49 U/L (46-116); ANION GAP 17.1 MEQ/L (5-15); BILIRUBIN,TOTAL 1.2 mg/dL (0.2-1.0); BLOOD UREA NITROGEN 13 mg/dL (9-20); CHLORIDE 110 mEq/L (98-107); Carbon Dioxide 22.6 mEq/L (21-32); Glucose 110 MG/DL (70-110); Potassium 3.9 mEq/L (3.5-5.1); SGOT/AST 19 U/L (15-37); SGPT/ALT 19 U/L (12-78); SODIUM 146 mEq/L (136-145); Total Protein 6.8 gm/dL (6.4-8.2)
[2016-09-29 15:11] LABS: TROPONIN < 0.017 ng/ml (0.000-0.056)
[2016-09-29] MEDS ORDERED: ROCEPHIN 1 Gm-D5w 50 ml Bag** 50 ML IV ONE ×2 (15:44→15:47)
--- NOTE | 2016-09-29 16:50 | PCM.HP ---
History of Present Illness - Chief Complaint Chief Complaint: Shortness of Breath History of Present Illness: is a 66 year old male who reports cough productive of white sputum, shortness of breath and wheezing for the last 3-4 days. no known fever, he has a history of copd. no vomiting, diarrhea, no chest pain. - Review of Systems Constitutional: No Fever, No Chills Respiratory: Cough, Short Of Breath, Wheezing Cardiac: No Chest Pain, No Edema, No Syncope Abdominal/Gastrointestinal: No Abdominal Pain, No Nausea, No Vomiting, No Diarrhea Skin: No Rash All Other Systems: Reviewed and Negative Medications & Allergies Home Medications: Home Medication List Aspirin 81 mg PO DAILY 08/02/16 [History Confirmed 09/29/16] Atenolol 12.5 mg PO DAILY 08/02/16 [History Confirmed 09/29/16] Cholecalciferol (Vitamin D3) [Vitamin D3] 1,000 unit PO DAILY 08/02/16 [History Confirmed 09/29/16] Lovastatin 10 mg PO HS 08/02/16 [History Confirmed 09/29/16] Albuterol Sulfate [Albuterol Sulfate Hfa] 2 puffs IH Q4-6HPRN PRN #2 [email or web address] 08/06/16 [Rx Confirmed 09/29/16] Allergies/Adverse Reactions: Allergies Allergy/AdvReac Type Severity Reaction Status Date / Time levofloxacin Allergy Intermediate Hives Verified 09/29/16 13:54 - Past Medical History Past Medical History: Yes Neurological History: No Pertinent History ENT History: Cataracts Cardiac History: Angina, Coronary Artery Disease, High Cholesterol, Hypertension Respiratory History: COPD, Pneumonia Endocrine Medical History: No Pertinent History Musculoskelatal History: Arthritis GI Medical History: Hemorrhoids History: No Pertinent History Pyscho-Social History: No Pertinent History Male Reproductive Disorders: Other - Past Surgical History Past Surgical History: Yes Neuro Surgical History: No Pertinent History Cardiac History: Cardiac Catheterization, Cardiac Stent, Other Respiratory Surgery: No Pertinent History GI Surgical History: Cholecystectomy Genitourinary Surgical Hx: No Pertinent History Male Surgical History: No Pertinent History Other Surgical History: heart cath with 2 stents. Apr 2016 pt had biopsy of mediastinum lymphnodes - Social History Smoking Status: Never smoker Exposure to second hand smoke: Yes Alcohol: None Drug Use: none Significant Family History: no pertinent family hx - Physical Exam Vital Signs: Vital Signs - 24 hr Temp Pulse Resp BP Pulse Ox 09/29/16 16:20 97.6 F 78 18 133/58 92 L 09/29/16 15:50 91 L 09/29/16 15:10 70 16 118/61 96 09/29/16 14:05 91 L 09/29/16 13:57 76 22 94 L 09/29/16 13:53 24 91 L 09/29/16 13:49 98.4 F 77 24 129/65 91 L Oxygen-Last 24 hours O2 Percentage 2 Liters = 28% O2 Percentage 2 Liters = 28% General Appearance: no apparent distress, alert Eye Exam: PERRL/EOMI, eyes nml inspection Respiratory Exam: prolonged expirations, wheezing Cardiovascular Exam: regular rate/rhythm, normal heart sounds, normal peripheral pulses Gastrointestinal/Abdomen Exam: soft, normal bowel sounds, No tenderness, No mass Extremity Exam: normal inspection, normal range of motion, pelvis stable Skin Exam: normal color, warm, dry, No rash Assessment/Plan (1) COPD with acute exacerbation Current Visit: Yes Status: Acute Assessment & Plan: rocephin, zithromax, IV solu medrol and nebs. Code(s): J44.1 - CHRONIC OBSTRUCTIVE PULMONARY DISEASE W (ACUTE) EXACERBATION
[2016-09-29] MEDS: solu-MEDROL 125 MG IV SCH ×2 (17:45→23:55)
[2016-09-29] MEDS: Zithromax 500 MG/ 250 ML NaCl Premix 250 ML IV SCH (17:45)
[2016-09-29] MEDS: DUONEB 0.5-3 MG/3 ml Neb IH SCH ×2 (19:00→22:52)
[2016-09-29] MEDS: PATIENT OWN MEDICATION IH SCH (19:02)
[2016-09-29] MEDS ORDERED: Zocor 10MG PO SCH (22:00)
[2016-09-29] MEDS ORDERED: NON-FORMULARY ITEM (Lovastatin [Lovastatin] 10 MG) PO SCH (22:00)
[2016-09-29] MEDS ORDERED: Flomax 0.4 MG PO SCH (22:00)
[2016-09-29] MEDS: Pepcid 20 MG PO SCH (22:14)
[2016-09-29] MEDS: Multaq 400 MG PO SCH (22:14)
[2016-09-30] MEDS: DUONEB 0.5-3 MG/3 ml Neb IH SCH ×2 (02:57→06:45)
[2016-09-30] MEDS: solu-MEDROL 125 MG IV SCH ×2 (05:41→13:33)
[2016-09-30 06:30] LABS: Mean Cell Volume 92.9 fl (78-100); Mean Platelet Volume 9.7 fl (6-9.5); Platelet Count 112 K/mm3 (150-450); Red Blood Count 4.06 M/mm3 (4.1-5.6); Red Cell Distribution Width 14.8 % (11.5-14.0); White Blood Count 5.7 K/mm3 (4.0-10.5)
[2016-09-30 06:31] LABS: Mean Corpuscular Hemoglobin 30.7 pg (26-32)
[2016-09-30] MEDS: PATIENT OWN MEDICATION IH SCH (06:45)
[2016-09-30 07:03] LABS: BAND 3 % (0.0-2.0); Total Cells Counted 100
[2016-09-30 07:04] LABS: Platelet Estimate DECREASED (NORMAL)
[2016-09-30 07:12] LABS: ALBUMIN 3.3 g/dL (3.4-5.0); ALKALINE PHOSPHATASE 40 U/L (46-116); ANION GAP 19.1 MEQ/L (5-15); BILIRUBIN,TOTAL 0.9 mg/dL (0.2-1.0); BLOOD UREA NITROGEN 16 mg/dL (9-20); CHLORIDE 110 mEq/L (98-107); Carbon Dioxide 20.2 mEq/L (21-32); Glucose 153 MG/DL (70-110); Potassium 4.3 mEq/L (3.5-5.1); SGOT/AST 13 U/L (15-37); SODIUM 145 mEq/L (136-145); Total Protein 6.4 gm/dL (6.4-8.2)
[2016-09-30 07:13] LABS: SGPT/ALT < 6 U/L (12-78)
--- NOTE | 2016-09-30 08:40 | PCM.DS ---
Discharge Summary Date of Admission: 09/29/16 16:08 Admitting Physician: GALEN COLE Primary Care Provider: NATALEE POTTS Allergies Allergies levofloxacin Allergy (Intermediate, Verified 09/29/16 13:54) [facility] Summary - Hospital Course Hospital Course: patient was admitted with copd exacerbation, doing well at this time. lungs are clear - Vitals & Intake/Output Vital Signs: Vital Signs Temperature 97.9 F 09/30/16 07:33 Pulse Rate 116 H 09/30/16 07:33 Respiratory Rate 20 09/30/16 08:00 Blood Pressure 116/58 09/30/16 07:33 O2 Sat by Pulse Oximetry 92 L 09/30/16 07:33 Oxygen-Last Documented O2 Percentage 2 Liters = 28% Intake & Output: Intake & Output 09/27/16 09/28/16 09/29/16 09/30/16 11:59 11:59 11:59 11:59 Intake Total 2827 Output Total 450 Balance 2377 Weight 87.997 kg - Lab Result Diagrams: 09/30/16 05:15 09/30/16 05:15 Lab Results-Last 24 Hrs: Lab Results-Last 24 Hours 09/30/16 09/30/16 Range/Units 05:15 05:15 WBC 5.7 (4.0-10.5) K/mm3 RBC 4.06 L (4.1-5.6) M/mm3 Hgb 12.5 (12.5-18.0) gm/dl Hct 37.7 L (42-50) % MCV 92.9 (78-100) fl MCH 30.7 (26-32) pg MCHC 33.2 (32-36) g/dl RDW 14.8 H (11.5-14.0) % Plt Count 112 L (150-450) K/mm3 MPV 9.7 H (6-9.5) fl Segmented Neutrophils 89 H (36.-66.) % Band Neutrophils 3 H (0.0-2.0) % Lymphocytes (Manual) 7 L (24-44) % Monocytes (Manual) 1 (0.0-12.0) % Differential Comment NORMAL Platelet Estimate DECREASED (NORMAL) Sodium 145 (136-145) mEq/L Potassium 4.3 (3.5-5.1) mEq/L Chloride 110 H (98-107) mEq/L Carbon Dioxide 20.2 L (21-32) mEq/L Anion Gap 19.1 H (5-15) MEQ/L BUN 16 (9-20) mg/dL Creatinine 1.40 H (0.55-1.30) mg/dl Estimated GFR 54 ML/MIN Glucose 153 H (70-110) MG/DL Calcium 8.3 L (8.5-10.1) mg/dL Total Bilirubin 0.9 (0.2-1.0) mg/dL AST 13 L (15-37) U/L ALT < 6 L (12-78) U/L Alkaline Phosphatase 40 L (46-116) U/L Serum Total Protein 6.4 (6.4-8.2) gm/dL Albumin 3.3 L (3.4-5.0) g/dL - Procedures and Test Procedures and Tests throughout Hospitalization: Therapy Orders & Screens 09/29/16 19:00 Respiratory MDI Q12H Comment: SYMBICORT 80/4.5 BID Diagnosis: Shortness of Breath Discharge Exam General Appearance: no apparent distress, alert Skin Exam: normal color, warm, dry Respiratory Exam: normal breath sounds, lungs clear, No respiratory distress Cardiovascular Exam: regular rate/rhythm, normal heart sounds Gastrointestinal/Abdomen Exam: soft, No tenderness, No mass Final Diagnosis/Problem List - Final Discharge Diagnosis/Problem (1) COPD with acute exacerbation Current Visit: Yes Status: Acute Assessment & Plan: home on po doxycycline, prednisone. has albuterol nebs and hfa at home - Discharge Disposition: Home, Self-Care Condition: Stable Prescriptions: New Prednisone 20 mg [Deltasone 20 mg] 20 mg PO UD #18 tablet Doxycycline Hyclate 1 cap PO BID #14 capsule Continue Aspirin 81 mg PO DAILY Lovastatin 10 mg PO HS Cholecalciferol (Vitamin D3) [Vitamin D3] 1,000 unit PO DAILY Atenolol 12.5 mg PO DAILY Albuterol Sulfate [Albuterol Sulfate Hfa] 2 puffs IH Q4-6HPRN PRN #2 hfa.aer.ad PRN Reason: Cough Budesonide/Formoterol Fumarate [Symbicort 80-4.5 Mcg Inhaler] 10.2 gm IH BID PRN Tamsulosin HCl 0.4 mg [Flomax 0.4 MG] 0.4 mg PO HS Dronedarone Hydrochloride 400* [Multaq 400 MG] 400 mg PO BID Clopidogrel Bisulfate 75 mg [PLAVIX 75 MG Tablet] 75 mg PO DAILY Levothyroxine Sodium 50 Mcg [Synthroid 50 Mcg] 50 mcg PO DAILY Albuterol/Ipratropium 3ml Neb* [DUONEB 0.5-3 MG/3 ml Neb] 3 ml NEB QIDPRN PRN PRN Reason: Shortness Of Breath Instructions: Chronic Obstructive Pulmonary Disease Follow up with: NATALEE POTTS NP [Primary Care Provider] -
[2016-09-30] MEDS: Pepcid 20 MG PO SCH (09:34)
[2016-09-30] MEDS: Multaq 400 MG PO SCH (09:34)
[2016-09-30] MEDS ORDERED: TENORMIN 50 MG PO SCH (10:00)
[2016-09-30] MEDS ORDERED: ATENOLOL 12.5 MG PO SCH (10:00)
[2016-09-30] MEDS ORDERED: ROCEPHIN 1 Gm-D5w 50 ml Bag** 50 ML IV SCH (10:00)
[2016-09-30] MEDS ORDERED: ECOTRIN 81 MG PO SCH (10:00)
[2016-09-30] MEDS ORDERED: PLAVIX 75 MG Tablet PO SCH (10:00)
[2016-09-30] MEDS ORDERED: ENOXAPARIN SODIUM SQ SCH (10:00)
[2016-09-30] MEDS ORDERED: SYNTHROID 50 MCG PO SCH (10:00)
[2016-09-30] MEDS: Zithromax 500 MG/ 250 ML NaCl Premix 250 ML IV SCH (11:16)
[2016-09-30 12:11] VITALS: BP 106/53; PULSE 103; O2SAT 93
[2016-09-30] MEDS ORDERED: PREVNAR 13 SYRINGE IM ONE (13:45)
== END 2016-09-30 13:55 | disposition home or self-care (01) ==
LOC: ED 13:48 → MED SURG 16:08
PROVIDERS: ADMIT Family Medicine; ATTEND Family Medicine
DX: J44.1 Chronic obstructive pulmonary disease with (acute) exacerbation (principal); I10 Essential (primary) hypertension; I25.10 Atherosclerotic heart disease of native coronary artery without angina pectoris; M19.90 Unspecified osteoarthritis, unspecified site; Z79.899 Other long term (current) drug therapy; Z23 Encounter for immunization
CPT/HCPCS: 93041; 96374; 99285; 96360; 96361; 96375; 93005; 36415 ×2; 83880; 83735; 85379; 85025 ×2; 80053 ×2; 84484; 87631; 71010; 94640 ×6; 94760 ×2; 94150; 83605; A9270 ×12; 90670; G0009; G0378; J0456; J0696; J1650; J2930

== ENCOUNTER 2016-12-17 14:11 | Observation (INO) | payer MEDICARE ==
--- NOTE | 2016-12-17 14:41 | ERPHSYRPT ---
- History of Present Illness Time Seen by Provider: 12/17/16 14:34 Source: patient Exam Limitations: no limitations Patient Subjective Stated Complaint: sob for days Triage Nursing Assessment: increased sob for past several days. resp labored at present. clear sputum production and congested. no fever. wears o2 at night. skin warm and dry.wheezing on arrival but clear in bed now. Physician History: The patient is a 66-year-old male with his complains of increasing shortness of breath and cough for 4 or 5 days. Today it is much worse. He doesn't know if he's had a fever. He has taken his breathing treatments twice today without relief. He is on 2 L of oxygen at night while at home. He denies chest pain. His past medical history is significant for chronic bronchitis, COPD, benign prostatic hypertrophy, high cholesterol, and hypo- thyroidism. Timing/Duration: day(s) (5), gradual onset Cough Quality/Degree: moderate Possible Cause: frequent episodes Modifying Factors: Improves With: albuterol nebulizer, coughing, exertion, oxygen Associated Symptoms: cough, shortness of breath Allergies/Adverse Reactions: levofloxacin Allergy (Intermediate, Verified 12/17/16 14:18) [facility] Home Medications: Aspirin 81 mg PO DAILY 08/02/16 [History] Atenolol 12.5 mg PO DAILY 08/02/16 [History] Cholecalciferol (Vitamin D3) [Vitamin D3] 1,000 unit PO DAILY 08/02/16 [History] Lovastatin 10 mg PO HS 08/02/16 [History] Albuterol/Ipratropium 3ml Neb* [DUONEB 0.5-3 MG/3 ml Neb] 3 ml NEB QIDPRN PRN 09/29/16 [History] Budesonide/Formoterol Fumarate [Symbicort 80-4.5 Mcg Inhaler] 10.2 gm IH BID PRN 09/29/16 [History] Clopidogrel Bisulfate 75 mg [PLAVIX 75 MG Tablet] 75 mg PO DAILY 09/29/16 [History] Dronedarone Hydrochloride 400* [Multaq 400 MG] 400 mg PO BID 09/29/16 [ History] Levothyroxine Sodium 50 Mcg [Synthroid 50 Mcg] 50 mcg PO DAILY 09/29/16 [ History] Tamsulosin HCl 0.4 mg [Flomax 0.4 MG] 0.4 mg PO HS 09/29/16 [History] Hx Tetanus, Diphtheria Vaccination/Date Given: Yes Hx Influenza Vaccination/Date Given: Yes Hx Pneumococcal Vaccination/Date Given: Yes Immunizations Up to Date: Yes - Review of Systems Constitutional: No Fever, No Chills Eyes: No Symptoms Ears, Nose, & Throat: No Symptoms Respiratory: Cough, Dyspnea, Dyspnea on Exertion (CONTRERAS), Wheezing Cardiac: No Chest Pain, No Edema, No Syncope Abdominal/Gastrointestinal: No Abdominal Pain, No Nausea, No Vomiting, No Diarrhea Genitourinary Symptoms: No Dysuria Musculoskeletal: No Back Pain, No Neck Pain Skin: No Rash Neurological: No Dizziness, No Focal Weakness, No Sensory Changes Psychological: No Symptoms Endocrine: No Symptoms Hematologic/Lymphatic: No Symptoms Immunological/Allergic: No Symptoms All Other Systems: Reviewed and Negative - Past Medical History Pertinent Past Medical History: Yes Neurological History: No Pertinent History ENT History: Cataracts Cardiac History: Angina, Coronary Artery Disease, High Cholesterol, Hypertension Respiratory History: COPD, Pneumonia Endocrine Medical History: No Pertinent History Musculoskeletal History: Arthritis GI Medical History: Hemorrhoids History: No Pertinent History Psycho-Social History: No Pertinent History Male Reproductive Disorders: Other - Past Surgical History Past Surgical History: Yes Neuro Surgical History: No Pertinent History Cardiac: Cardiac Catheterization, Cardiac Stent, Other Respiratory: No Pertinent History Gastrointestinal: Cholecystectomy Genitourinary: No Pertinent History Male Surgical History: No Pertinent History Other Surgical History: heart cath with 2 stents. Apr 2016 pt had biopsy of mediastinum lymphnodes - Social History Smoking Status: Never smoker Exposure to second hand smoke: No Alcohol Use: None Drug Use: none Patient Lives Alone: No Significant Family History: no pertinent family hx - Nursing Vital Signs Nursing Vital Signs: Initial Vital Signs Temperature 97.4 F Temperature Source Oral Pulse Rate 66 Respiratory Rate 20 Blood Pressure [] 138/67 Pain Intensity 0 - Physical Exam General Appearance: mild distress Eye Exam: PERRL/EOMI, eyes nml inspection Ears, Nose, Throat Exam: normal ENT inspection, TMs normal, pharynx normal, moist mucous membranes Neck Exam: normal inspection, non-tender, supple, full range of motion Respiratory Exam: diminished breath sounds, wheezing Cardiovascular Exam: regular rate/rhythm, normal heart sounds Gastrointestinal/Abdomen Exam: soft, No tenderness Rectal Exam: not done Back Exam: normal inspection, No CVA tenderness, No vertebral tenderness Extremity Exam: normal inspection, normal range of motion Neurologic Exam: alert, oriented x 3, cooperative, normal mood/affect, sensation nml, No motor deficits Skin Exam: normal color, warm, dry, No rash Lymphatic Exam: No adenopathy SpO2 Interpretation: borderline oxygenation SpO2: 92 Oxygen Delivery: Room Air - Radiology Exams Chest X-ray Interpretation: Teleradiologist Report, Infiltrates (again with LLL per Dr Nair.) Ordered Tests: Active Orders 24 hr Category Date Time Status IV Insertion STAT Care 12/17/16 14:42 Active CHEST 2 VIEWS (PA AND LAT) Stat Exams 12/17/16 14:43 Completed BLOOD CULTURE Stat Lab 12/17/16 14:55 Received CBC W DIFF Stat Lab 12/17/16 14:30 Completed CMP Stat Lab 12/17/16 14:30 Completed Manual Differential NC Stat Lab 12/17/16 14:30 Completed NT PRO BNP Stat Lab 12/17/16 14:30 Completed Respiratory Nebulizer STAT RT 12/17/16 14:44 Active Medication Summary Discontinued Medications Generic Name Dose Route Start Last Admin Trade Name Freq PRN Reason Stop Dose Admin Albuterol/Ipratropium 3 ml 12/17/16 14:42 12/17/16 15:13 Duoneb 0.5-3 Mg/3 Ml Neb IH 12/17/16 14:43 3 ml STAT ONE Administration Albuterol/Ipratropium Confirm 12/17/16 15:11 Duoneb 0.5-3 Mg/3 Ml Neb Administered 12/17/16 15:12 Dose 3 ml IH .STK-MED ONE Lorazepam 2 mg 12/17/16 14:42 12/17/16 14:49 Ativan 2 Mg/1 Ml Vial IV 12/17/16 14:43 2 mg STAT ONE Administration Lorazepam Confirm 12/17/16 14:47 Ativan 2 Mg/1 Ml Vial Administered 12/17/16 14:48 Dose 2 mg .ROUTE .STK-MED ONE Lab/Rad Data: Laboratory Result Diagrams 12/17/16 14:30 12/17/16 14:30 Laboratory Results 05/24/17 05/24/17 Range/Units 14:30 14:30 WBC 6.4 (4.0-10.5) K/mm3 RBC 4.53 (4.1-5.6) M/mm3 Hgb 14.4 (12.5-18.0) gm/dl Hct 42.9 (42-50) % MCV 94.7 (78-100) fl MCH 31.8 (26-32) pg MCHC 33.6 (32-36) g/dl RDW 14.4 H (11.5-14.0) % Plt Count 129 L (150-450) K/mm3 MPV 9.5 (6-9.5) fl Segmented Neutrophils 74 H (36.-66.) % Band Neutrophils 1 (0.0-2.0) % Lymphocytes (Manual) 19 L (24-44) % Monocytes (Manual) 1 (0.0-12.0) % Eosinophils (Manual) 5 H (0.00-3.0) % Differential Comment NORMAL Platelet Estimate DECREASED (NORMAL) Sodium 142 (136-145) mEq/L Potassium 4.0 (3.5-5.1) mEq/L Chloride 108 H (98-107) mEq/L Carbon Dioxide 25.3 (21-32) mEq/L Anion Gap 12.2 (5-15) MEQ/L BUN 16 (9-20) mg/dL Creatinine 1.31 H (0.55-1.30) mg/dl Estimated GFR 58 ML/MIN Glucose 100 (70-110) MG/DL Calcium 9.0 (8.5-10.1) mg/dL Total Bilirubin 1.60 H (0.2-1.0) mg/dL AST 18 (15-37) U/L ALT 26 (12-78) U/L Alkaline Phosphatase 43 L (46-116) U/L NT-Pro-B Natriuret Pep 86 (0-125) pg/ml Serum Total Protein 6.8 (6.4-8.2) gm/dL Albumin 3.8 (3.4-5.0) g/dL - Progress Progress: unchanged Air Movement: fair Blood Culture(s) Obtained: Yes Antibiotics given: No Discussed with : Bari Counseled pt/family regarding: lab results, diagnosis, rad results - Departure Time of Disposition: 16:10 Departure Disposition: Observation (per Dr Candelaria) Clinical Impression: COPD exacerbation Condition: Stable Critical Care Time: No Instructions: Chronic Obstructive Pulmonary Disease
[2016-12-17] MEDS ORDERED: DUONEB 0.5-3 MG/3 ml Neb IH ONE ×2 (14:42→15:11)
[2016-12-17] MEDS ORDERED: Ativan 2 MG/1 ML VIAL IV ONE (14:42)
[2016-12-17] MEDS ORDERED: Ativan 2 MG/1 ML VIAL ONE (14:47)
[2016-12-17 14:54] LABS: Mean Cell Volume 94.7 fl (78-100); Mean Corpuscular Hemoglobin 31.8 pg (26-32); Mean Platelet Volume 9.5 fl (6-9.5); Platelet Count 129 K/mm3 (150-450); Red Blood Count 4.53 M/mm3 (4.1-5.6); Red Cell Distribution Width 14.4 % (11.5-14.0); White Blood Count 6.4 K/mm3 (4.0-10.5)
--- NOTE | 2016-12-17 15:03 | XRAY ---
Indication: Short of breath and wheezing. Comparison: September 29, 2016. PA/lateral chest unchanged again hyperinflated with left lower lobe infiltrate/atelectasis. Heart is not enlarged. No new cardiopulmonary abnormalities.
[2016-12-17 15:24] LABS: ALBUMIN 3.8 g/dL (3.4-5.0); ANION GAP 12.2 MEQ/L (5-15); BILIRUBIN,TOTAL 1.6 mg/dL (0.2-1.0); Carbon Dioxide 25.3 mEq/L (21-32); Total Protein 6.8 gm/dL (6.4-8.2)
[2016-12-17 15:29] LABS: BAND 1 % (0.0-2.0); Eosinophil 5 % (0.00-3.0); Platelet Estimate DECREASED (NORMAL); Total Cells Counted 100
--- NOTE | 2016-12-17 16:40 | PCM.HP ---
History of Present Illness - Chief Complaint Chief Complaint: Shortness of Breath History of Present Illness: is a 66 year old male who reports to the ER today with c/o shortness of breath, cough and wheezing for 4-5 days. He has a history of copd, wears 2L oxygen at night but has been having to wear it increasingly during the day the past few days. cough is rarely productive of clear sputum, no chest pain, no vomiting, no diarrhea, no abd pain. - Review of Systems Constitutional: No Fever, No Chills Respiratory: Cough, Short Of Breath, Wheezing Cardiac: No Symptoms Abdominal/Gastrointestinal: No Abdominal Pain, No Nausea, No Vomiting, No Diarrhea Genitourinary Symptoms: No Dysuria Skin: No Rash All Other Systems: Reviewed and Negative Medications & Allergies Home Medications: Home Medication List Aspirin 81 mg PO DAILY 08/02/16 [History Confirmed 12/17/16] Atenolol 12.5 mg PO DAILY 08/02/16 [History Confirmed 12/17/16] Cholecalciferol (Vitamin D3) [Vitamin D3] 1,000 unit PO DAILY 08/02/16 [History Confirmed 12/17/16] Lovastatin 10 mg PO HS 08/02/16 [History Confirmed 12/17/16] Albuterol Sulfate [Albuterol Sulfate Hfa] 2 puffs IH Q4-6HPRN PRN #2 [id number] 08/06/16 [Rx Confirmed 12/17/16] Albuterol/Ipratropium 3ml Neb* [DUONEB 0.5-3 MG/3 ml Neb] 3 ml NEB QIDPRN PRN 09/29/16 [History Confirmed 12/17/16] Clopidogrel Bisulfate 75 mg [PLAVIX 75 MG Tablet] 75 mg PO DAILY 09/29/16 [History Confirmed 12/17/16] Dronedarone Hydrochloride 400* [Multaq 400 MG] 400 mg PO BID 09/29/16 [ History Confirmed 12/17/16] Levothyroxine Sodium 50 Mcg [Synthroid 50 Mcg] 50 mcg PO DAILY 09/29/16 [ History Confirmed 12/17/16] Tamsulosin HCl 0.4 mg [Flomax 0.4 MG] 0.4 mg PO HS 09/29/16 [History Confirmed 12/17/16] Loratadine 10 mg [Claritin 10 mg] 10 mg PO DAILY 12/17/16 [History Confirmed 12/17/16] Ranitidine HCl 150 mg PO DAILY 12/17/16 [History Confirmed 12/17/16] Allergies/Adverse Reactions: Allergies Allergy/AdvReac Type Severity Reaction Status Date / Time levofloxacin Allergy Intermediate Hives Verified 12/17/16 14:18 - Past Medical History Past Medical History: Yes Neurological History: No Pertinent History ENT History: Cataracts Cardiac History: Angina, Coronary Artery Disease, High Cholesterol, Hypertension Respiratory History: COPD, Pneumonia Endocrine Medical History: No Pertinent History Musculoskelatal History: Arthritis GI Medical History: Hemorrhoids History: No Pertinent History Pyscho-Social History: No Pertinent History Male Reproductive Disorders: Other - Past Surgical History Past Surgical History: Yes Neuro Surgical History: No Pertinent History Cardiac History: Cardiac Catheterization, Cardiac Stent, Other Respiratory Surgery: No Pertinent History GI Surgical History: Cholecystectomy Genitourinary Surgical Hx: No Pertinent History Male Surgical History: No Pertinent History Other Surgical History: heart cath with 2 stents. Apr 2016 pt had biopsy of mediastinum lymphnodes - Social History Smoking Status: Never smoker Exposure to second hand smoke: No Alcohol: None Drug Use: none Significant Family History: no pertinent family hx - Physical Exam Vital Signs: Vital Signs - 24 hr Temp Pulse Resp BP Pulse Ox 12/17/16 16:19 88 20 126/76 97 12/17/16 16:14 92 L 12/17/16 15:24 66 20 138/67 98 12/17/16 15:13 68 20 94 L 12/17/16 14:12 97.4 F 72 20 134/59 92 L Oxygen-Last 24 hours O2 Percentage 2 Liters = 28% General Appearance: no apparent distress, alert Neurologic Exam: alert, oriented x 3, cooperative, normal mood/affect, nml cerebellar function, nml station & gait, sensation nml, No motor deficits Eye Exam: PERRL/EOMI, eyes nml inspection Respiratory Exam: prolonged expirations, wheezing Cardiovascular Exam: regular rate/rhythm, normal heart sounds, normal peripheral pulses Gastrointestinal/Abdomen Exam: soft, normal bowel sounds, No tenderness, No mass Extremity Exam: normal inspection, normal range of motion, pelvis stable Skin Exam: normal color, warm, dry, No rash Assessment/Plan (1) COPD with acute exacerbation Current Visit: No Status: Acute Assessment & Plan: will treat with aggressive nebulizer treatments, IV solu medrol and rocephin/ zithromax. Code(s): J44.1 - CHRONIC OBSTRUCTIVE PULMONARY DISEASE W (ACUTE) EXACERBATION (2) Coronary artery disease Current Visit: Yes Status: Acute Assessment & Plan: continue aspirin, plavix and beta surendra Code(s): I25.10 - ATHSCL HEART DISEASE OF [place] CORONARY ARTERY W/O ANG PCTRS (3) Hypertension Current Visit: Yes Status: Acute Code(s): I10 - ESSENTIAL (PRIMARY) HYPERTENSION
[2016-12-17] MEDS: ROCEPHIN 1 Gm-D5w 50 ml Bag** 1 G/50 ML IVPB IV SCH (17:02)
[2016-12-17] MEDS: solu-MEDROL 125 MG IV SCH (17:02)
[2016-12-17] MEDS ORDERED: PROVENTIL 2.5 MG/3 ML NEB IH SCH (19:00)
[2016-12-17] MEDS: DUONEB 0.5-3 MG/3 ml Neb IH SCH ×2 (19:03→23:04)
[2016-12-17] MEDS: Advair Hfa 115/21 Common canister IH SCH (19:06)
[2016-12-17] MEDS: Zithromax 500 MG/ 250 ML NaCl Premix 500 MG/250 ML IVPB IV SCH (19:58)
[2016-12-17] MEDS: Flomax 0.4 MG PO SCH (21:00)
[2016-12-17] MEDS: Multaq 400 MG PO SCH (21:00)
[2016-12-18] MEDS: solu-MEDROL 125 MG IV SCH ×4 (00:12→17:18)
[2016-12-18] MEDS: DUONEB 0.5-3 MG/3 ml Neb IH SCH ×6 (03:05→23:20)
[2016-12-18 06:23] LABS: Mean Corpuscular Hemoglobin 31.7 pg (26-32); Mean Platelet Volume 9.5 fl (6-9.5); Platelet Count 145 K/mm3 (150-450); Red Blood Count 4.51 M/mm3 (4.1-5.6); Red Cell Distribution Width 14.2 % (11.5-14.0); White Blood Count 8.3 K/mm3 (4.0-10.5)
[2016-12-18] MEDS: Advair Hfa 115/21 Common canister IH SCH ×2 (06:40→19:20)
[2016-12-18 06:51] LABS: ANION GAP 16.2 MEQ/L (5-15); Carbon Dioxide 20.6 mEq/L (21-32); Potassium 4.2 mEq/L (3.5-5.1)
--- NOTE | 2016-12-18 07:56 | PCM.NOTE ---
Date and Time: 12/18/16 0755 Subjective Assessment: patient reports he is feeling slightly better today, still has cough, wheezing and dyspnea Objective Exam General Appearance: no apparent distress, alert Respiratory Exam: normal breath sounds, lungs clear, No respiratory distress Cardiovascular Exam: regular rate/rhythm, normal heart sounds Gastrointestinal/Abdomen Exam: soft, No tenderness, No mass Extremity Exam: normal inspection, normal range of motion OBJECTIVE DATA Vital Signs: Vital Signs - 24 hr Temp Pulse Resp BP Pulse Ox 12/18/16 07:53 20 12/18/16 07:40 98.1 F 106 H 20 127/67 94 L 12/18/16 06:40 106 H 18 94 L 12/18/16 04:00 97.9 F 101 H 21 129/65 95 12/18/16 03:00 95 H 18 94 L 12/18/16 00:00 98.1 F 102 H 20 135/70 96 12/17/16 23:06 95 H 14 95 12/17/16 20:00 97.9 F 71 16 132/65 95 12/17/16 19:00 73 22 96 12/17/16 16:32 98 F 68 22 162/73 92 L 12/17/16 16:31 92 L 12/17/16 16:19 88 20 126/76 97 12/17/16 16:14 92 L 12/17/16 15:24 66 20 138/67 98 12/17/16 15:13 68 20 94 L 12/17/16 14:12 97.4 F 72 20 134/59 92 L Oxygen-Last 24 hours O2 Percentage 2 Liters = 28% O2 Percentage 2 Liters = 28% O2 Percentage 2 Liters = 28% O2 Percentage 2 Liters = 28% O2 Percentage 2 Liters = 28% O2 Percentage 2 Liters = 28% Pain Assessment - Last Documented Pain Scale Used 0-10 Pain Scale Intake and Output: Intake & Output 12/15/16 12/16/16 12/17/16 12/18/16 11:59 11:59 11:59 11:59 Intake Total 1380 Output Total 650 Balance 730 Weight 93.349 kg Lab Results: Lab Results-Last 24 Hours 12/18/16 12/18/16 Range/Units 05:30 05:30 WBC 8.3 (4.0-10.5) K/mm3 RBC 4.51 (4.1-5.6) M/mm3 Hgb 14.3 (12.5-18.0) gm/dl Hct 42.4 (42-50) % MCV 94.0 (78-100) fl MCH 31.7 (26-32) pg MCHC 33.7 (32-36) g/dl RDW 14.2 H (11.5-14.0) % Plt Count 145 L (150-450) K/mm3 MPV 9.5 (6-9.5) fl Sodium 140 (136-145) mEq/L Potassium 4.2 (3.5-5.1) mEq/L Chloride 107 (98-107) mEq/L Carbon Dioxide 20.6 L (21-32) mEq/L Anion Gap 16.2 H (5-15) MEQ/L BUN 18 (9-20) mg/dL Creatinine 1.31 H (0.55-1.30) mg/dl Estimated GFR 58 ML/MIN Glucose 159 H (70-110) MG/DL Calcium 8.9 (8.5-10.1) mg/dL Assessment/Plan (1) COPD with acute exacerbation Current Visit: No Status: Acute Assessment & Plan: continue rocephin/zithromax, solumedrol and neb treatments. Code(s): J44.1 - CHRONIC OBSTRUCTIVE PULMONARY DISEASE W (ACUTE) EXACERBATION (2) Coronary artery disease Current Visit: Yes Status: Acute Code(s): I25.10 - ATHSCL HEART DISEASE OF [place] CORONARY ARTERY W/O ANG PCTRS (3) Hypertension Current Visit: Yes Status: Acute Code(s): I10 - ESSENTIAL (PRIMARY) HYPERTENSION
[2016-12-18] MEDS: Multaq 400 MG PO SCH ×2 (08:26→22:24)
[2016-12-18] MEDS: SYNTHROID 50 MCG PO SCH (08:31)
[2016-12-18] MEDS: PLAVIX 75 MG Tablet PO SCH (08:32)
[2016-12-18] MEDS: ECOTRIN 81 MG PO SCH (08:32)
[2016-12-18] MEDS: TENORMIN 50 MG PO SCH (08:37)
[2016-12-18] MEDS ORDERED: ATENOLOL 12.5 MG PO SCH (10:00)
[2016-12-18] MEDS: ROCEPHIN 1 Gm-D5w 50 ml Bag** 1 G/50 ML IVPB IV SCH (22:23)
[2016-12-18] MEDS: Flomax 0.4 MG PO SCH (22:23)
[2016-12-18] MEDS: Zithromax 500 MG/ 250 ML NaCl Premix 500 MG/250 ML IVPB IV SCH (22:24)
[2016-12-19] MEDS: solu-MEDROL 125 MG IV SCH ×3 (00:13→12:34)
[2016-12-19] MEDS: DUONEB 0.5-3 MG/3 ml Neb IH SCH ×6 (03:15→23:17)
[2016-12-19 05:46] LABS: Mean Cell Volume 94.4 fl (78-100); Mean Corpuscular Hemoglobin 31.5 pg (26-32); Mean Platelet Volume 9.4 fl (6-9.5); Platelet Count 161 K/mm3 (150-450); Red Blood Count 4.25 M/mm3 (4.1-5.6); Red Cell Distribution Width 14.4 % (11.5-14.0); White Blood Count 21.1 K/mm3 (4.0-10.5)
[2016-12-19 06:07] LABS: ALBUMIN 3.3 g/dL (3.4-5.0); ANION GAP 14.4 MEQ/L (5-15); BILIRUBIN,TOTAL 0.6 mg/dL (0.2-1.0); Carbon Dioxide 21.6 mEq/L (21-32); Potassium 4.6 mEq/L (3.5-5.1); Total Protein 6.2 gm/dL (6.4-8.2)
[2016-12-19 06:15] LABS: BAND 1 % (0.0-2.0); Platelet Estimate NORMAL (NORMAL); Total Cells Counted 100; Toxic Granulation 1+
[2016-12-19] MEDS: Advair Hfa 115/21 Common canister IH SCH ×2 (06:19→18:47)
[2016-12-19] MEDS: SYNTHROID 50 MCG PO SCH (10:19)
[2016-12-19] MEDS: TENORMIN 50 MG PO SCH (10:19)
[2016-12-19] MEDS: ECOTRIN 81 MG PO SCH (10:22)
[2016-12-19] MEDS: Multaq 400 MG PO SCH ×2 (10:22→22:53)
[2016-12-19] MEDS: PLAVIX 75 MG Tablet PO SCH (10:22)
--- NOTE | 2016-12-19 14:24 | XRAY ---
Indication: Pneumonia. Comparison: December 17, 2016. PA/lateral chest unchanged again hyperinflated with left base infiltrate/atelectasis. Remaining lungs clear. Heart and mediastinal structures stable and within normal limits. No new cardiopulmonary findings.
[2016-12-19] MEDS ORDERED: Pepcid 20 MG VIAL IV ONE (18:52)
[2016-12-19] MEDS ORDERED: MEFOXIN 2 GM PREMIX** 2 GM/50 ML ML IV SCH (19:00)
[2016-12-19] MEDS: Flomax 0.4 MG PO SCH (22:53)
[2016-12-19] MEDS: ROCEPHIN 1 Gm-D5w 50 ml Bag** 1 G/50 ML IVPB IV SCH (22:54)
[2016-12-20] MEDS: Zithromax 500 MG/ 250 ML NaCl Premix 500 MG/250 ML IVPB IV SCH (00:15)
[2016-12-20] MEDS: DUONEB 0.5-3 MG/3 ml Neb IH SCH ×3 (03:12→10:24)
[2016-12-20 06:00] LABS: Mean Cell Volume 95.7 fl (78-100); Mean Corpuscular Hemoglobin 31.7 pg (26-32); Mean Platelet Volume 9.8 fl (6-9.5); Platelet Count 153 K/mm3 (150-450); Red Blood Count 3.97 M/mm3 (4.1-5.6); Red Cell Distribution Width 14.5 % (11.5-14.0); White Blood Count 17.9 K/mm3 (4.0-10.5)
[2016-12-20] MEDS: Advair Hfa 115/21 Common canister IH SCH (06:21)
[2016-12-20 06:33] LABS: ANION GAP 12.5 MEQ/L (5-15); BLOOD UREA NITROGEN 31 mg/dL (9-20); CHLORIDE 107 mEq/L (98-107); Carbon Dioxide 24.8 mEq/L (21-32); Glucose 124 MG/DL (70-110); Potassium 4.6 mEq/L (3.5-5.1); SODIUM 140 mEq/L (136-145)
[2016-12-20] MEDS: ECOTRIN 81 MG PO SCH (09:31)
[2016-12-20] MEDS: PLAVIX 75 MG Tablet PO SCH (09:31)
[2016-12-20] MEDS: TENORMIN 50 MG PO SCH (09:31)
[2016-12-20 09:33] LABS: BAND 2 % (0.0-2.0); Total Cells Counted 100
[2016-12-20 09:34] LABS: Platelet Estimate NORMAL (NORMAL)
[2016-12-20] MEDS: SYNTHROID 50 MCG PO SCH (09:34)
[2016-12-20] MEDS: Multaq 400 MG PO SCH (09:34)
[2016-12-20] MEDS ORDERED: DELTASONE 10 MG PO SCH (10:00)
[2016-12-20 10:28] VITALS: O2SAT 94
[2016-12-20 12:09] VITALS: BP 122/55; PULSE 94
--- NOTE | 2016-12-23 11:06 | DS ---
DISCHARGE DIAGNOSES: 1) ACUTE EXACERBATION OF CHRONIC OBSTRUCTIVE PULMONARY DISEASE. 2) HYPOXIA. HOSPITAL COURSE: The patient is a 66 year-old white male patient with a known history of chronic obstructive pulmonary disease who takes home oxygen who got worse with shortness of breath. He was admitted to the hospital and started on IV antibiotics and IV steroids. The patient improved with the above treatments and was felt to be ready for discharge home by the morning of 12/20/2016. The patient's saturations on 3 liters oxygen remained above 93%. His lungs were fairly clear. He was discharged home on prednisone 30 mg for three days, 20 mg for three days, and then 10 mg for three days and Augmentin 875 mg twice a day. He is on home oxygen. He had bought an oxygen sensor fairly recently to monitor his oxygen saturations at home. He is instructed to follow up with his regular doctor in the office in one week. He is to return if he has any further problems in the interim.
== END 2016-12-20 12:30 | disposition home or self-care (01) ==
LOC: ED 14:11 → MED SURG 16:24
PROVIDERS: ADMIT Family Medicine; ATTEND Family Medicine
DX: J44.1 Chronic obstructive pulmonary disease with (acute) exacerbation (principal); R09.02 Hypoxemia; Z99.81 Dependence on supplemental oxygen; I25.10 Atherosclerotic heart disease of native coronary artery without angina pectoris; I10 Essential (primary) hypertension; M19.90 Unspecified osteoarthritis, unspecified site; J18.9 Pneumonia, unspecified organism
CPT/HCPCS: 36000; 36415; 71020; 80048; 80053; 83880; 85025; 85027; 87040; 94640; 94760; 94762; 96374; 99285; G0378; J0456; J0696; J2060; J2930; A9270-GY; J7506

== ENCOUNTER 2017-03-11 05:51 | Day surgery (SDC) | payer MEDICARE ==
[2017-03-11] MEDS ORDERED: DIPRIVAN 200 MG/20 ML IV ONE (05:52)
[2017-03-11] MEDS ORDERED: Ketamine HCl 50 MG/ML IV ONE (05:52)
[2017-03-11] MEDS ORDERED: Lactated Ringers 1,000 ML IV SCH (06:00)
[2017-03-11] MEDS ORDERED: Lactated Ringers 1,000 ML IV ONE (08:33)
--- NOTE | 2017-03-11 08:41 | OP ---
SURGERY DATE/TIME: 03/11/2017 0755 PREOPERATIVE DIAGNOSES: 1) Persistent gastroesophageal reflux disease. 2) Screening colon. POSTOPERATIVE DIAGNOSES: 1) Normal EGD. 2) Normal colon. 3) Poor bowel prep. PROCEDURES: 1) EGD. 2) Colonoscopy. SURGEON: Jorge Candelaria M.D. ANESTHESIA: MAC by Lasha Orta CRNA. ESTIMATED BLOOD LOSS: None. SPECIMENS: None. DESCRIPTION OF PROCEDURE: After informed written consent was obtained, the patient was taken to the endoscopy suite. He had a bite block inserted and underwent monitored anesthesia. The endoscope was inserted into the posterior oropharynx and under direct visualization the esophagus was traversed. The gastric mucosa had a normal appearance free of any lesions or defects. The pylorus was traversed and the first and second portions of the duodenum was within normal limits. Upon withdrawal the mucosal surface of the gastric mucosa appeared normal in appearance. The gastroesophageal junction and esophageal mucosa likewise were all normal upon withdrawal. The scope was removed and the scopes were switched. A digital rectal exam then showed normal sphincter tone. The endoscope was then inserted in the rectum and sequentially the entire colonic mucosa was traversed. The level of cecum was reached and verified with direct visualization of ileocecal valve. Transverse and ascending colon had significant amount of semisolid stool covering mucosal structures but there were no obvious lesions or abnormalities. Prior to withdrawal retroflexion showed no internal lesions. The scope was removed and the patient was transferred to the recovery room in excellent condition.
[2017-03-11 10:34] VITALS: BP 142/82; PULSE 66; O2SAT 98
== END 2017-03-11 09:45 | disposition home or self-care (01) ==
LOC: SDC 05:51
PROVIDERS: ATTEND Family Medicine
PROC: 0DJ08ZZ Inspection of Upper Intestinal Tract, Via Natural or Artificial Opening Endoscopic (ICD-10-PCS; principal; 2017-03-11)
PROC: 0DJD8ZZ Inspection of Lower Intestinal Tract, Via Natural or Artificial Opening Endoscopic (ICD-10-PCS; 2017-03-11)
DX: K21.9 Gastro-esophageal reflux disease without esophagitis (principal); Z12.11 Encounter for screening for malignant neoplasm of colon
CPT/HCPCS: 43235; G0121; 00740; 00810; J2704

== ENCOUNTER 2017-06-27 11:14 | Inpatient (IN) | payer MEDICARE ==
[2017-06-27] MEDS ORDERED: BABY ASPIRIN 81 MG CHEW PO ONE (11:47)
[2017-06-27] MEDS ORDERED: DUONEB 0.5-3 MG/3 ml Neb IH ONE ×2 (11:48→12:05)
[2017-06-27] MEDS ORDERED: BABY ASPIRIN 81 MG CHEW ONE (11:52)
--- NOTE | 2017-06-27 11:55 | ERPHSYRPT ---
- History of Present Illness Time Seen by Provider: 06/27/17 11:43 Historian: patient Exam Limitations: no limitations Patient Subjective Stated Complaint: pt states on 06/26/17 he began having chest pressure and sob. states he was sitting when thi s happened. states pain and sob is not different than it was on 06/26/17. Triage Nursing Assessment: pt pink, warm, dry. lung sounds clear and equal. pt able to speak in full sentences without breathing difficulty. Physician History: 67-year-old white male arrives with complaint of shortness of breath cough some wheezing states he's been having pain in the middle of his chest feels like a pressure worse with breathing symptoms which began yesterday at 8 PM He states his cough has been nonproductive Patient denies nausea vomiting he states he chronically sweats. Past medical history includes angina, coronary artery disease, hyperlipidemia, high blood pressure, COPD, pneumonia, arthritis, hemorrhoids, GERD Past surgical history includes cardiac catheter, cardiac stents, cholecystectomy , biopsy of mediastinal lymph nodes Timing/Duration: yesterday (yesterday evening at 8:00) Activities at Onset: rest Quality: pressure Location: substernal Chest Pain Radiation: no radiation Severity of Pain-Max: moderate Severity of Pain-Current: moderate Modifying Factors: Improves With: breathing, coughing, oxygen, aspirin (patient takes 81 mg aspirin a day), other (pain worse with breathing). Worsens With: antacids, defecating, eating, exertion, lying down, morphine, movement, nitroglycerin, palpation, rest, sitting up, change in position Associated Symptoms: shortness of breath, cough, hurts to breathe, No nausea, No vomiting, No palpitations, No heartburn, No abdominal pain, No diaphoresis, No chills, No fever, No fatigue, No weakness, No swelling/lump in chest, No syncope, No rash, No headache, No dizziness, No edema, No back pain Prior Chest Pain/Cardiac Workup: cardiac cath (patient has had cardiac catheterization and cardiac stents in past) Nitro Today/Relief: no nitro taken today Aspirin Treatment Today: 81 mg x 4, provided by ED Allergies/Adverse Reactions: levofloxacin Allergy (Intermediate, Verified 06/27/17 11:24) Hives Home Medications: Aspirin 81 mg PO DAILY 08/02/16 [History] Atenolol 12.5 mg PO QPM 08/02/16 [History] Cholecalciferol (Vitamin D3) [Vitamin D3] 1,000 unit PO DAILY 08/02/16 [History] Lovastatin 10 mg PO HS 08/02/16 [History] Albuterol/Ipratropium 3ml Neb* [DUONEB 0.5-3 MG/3 ml Neb] 3 ml NEB QIDPRN PRN 09/29/16 [History] Clopidogrel Bisulfate 75 mg [PLAVIX 75 MG Tablet] 75 mg PO DAILY 09/29/16 [History] Dronedarone Hydrochloride 400* [Multaq 400 MG] 400 mg PO BID 09/29/16 [ History] Levothyroxine Sodium 50 Mcg [Synthroid 50 Mcg] 75 mcg PO DAILY 09/29/16 [ History] Tamsulosin HCl 0.4 mg [Flomax 0.4 MG] 0.4 mg PO HS 09/29/16 [History] Loratadine 10 mg [Claritin 10 mg] 10 mg PO DAILY 12/17/16 [History] Ranitidine HCl 150 mg PO DAILY 12/17/16 [History] Fluticasone/Vilanterol [Breo Ellipta 200-25 Mcg INH] 1 each IH DAILY 03/10/17 [ History] Hx Tetanus, Diphtheria Vaccination/Date Given: Yes Hx Influenza Vaccination/Date Given: Yes Hx Pneumococcal Vaccination/Date Given: No Immunizations Up to Date: Yes - Review of Systems Constitutional: No Fever, No Chills Eyes: No Symptoms, No Eye Pain, No Eye Redness, No Itchy, No Photophobia, No Tearing, No Vision Changes, No Double Vision, No Foreign Body Sensation Ears, Nose, & Throat: No Symptoms, No Ear Pain, No Ear Discharge, No Hearing Changes, No Tinnitus, No Nose Pain, No Nose Congestion, No Nose Discharge, No Sinus Drainage, No Epistaxis, No Mouth Pain Respiratory: Cough, Dyspnea, Wheezing (Minimal wheezing), No Cyanosis, No Dyspnea on Exertion (CONTRERAS) Cardiac: Chest Pain, No Edema, No Palpitations, No Syncope, No Orthopnea, No PND Abdominal/Gastrointestinal: No Abdominal Pain, No Nausea, No Vomiting, No Diarrhea, No Constipation, No Hematemesis, No Hematochezia, No Melena, No Dysphagia, No Appetite Changes Genitourinary Symptoms: No Dysuria Musculoskeletal: No Back Pain, No Neck Pain Skin: No Rash Neurological: No Dizziness, No Focal Weakness, No Sensory Changes Psychological: No Symptoms Endocrine: No Symptoms All Other Systems: Reviewed and Negative - Past Medical History Pertinent Past Medical History: Yes Neurological History: No Pertinent History ENT History: Cataracts Cardiac History: Angina, Coronary Artery Disease, High Cholesterol, Hypertension Respiratory History: COPD, Pneumonia Endocrine Medical History: No Pertinent History Musculoskeletal History: Arthritis GI Medical History: GERD, Hemorrhoids History: No Pertinent History Psycho-Social History: No Pertinent History Male Reproductive Disorders: Other - Past Surgical History Past Surgical History: Yes Neuro Surgical History: No Pertinent History Cardiac: Cardiac Catheterization, Cardiac Stent, Other Respiratory: No Pertinent History Gastrointestinal: Cholecystectomy Genitourinary: No Pertinent History Musculoskeletal: No Pertinent History Male Surgical History: No Pertinent History Other Surgical History: heart cath with 2 stents aug 2016. Apr 2016 pt had biopsy of mediastinum lymphnodes - Social History Smoking Status: Never smoker Exposure to second hand smoke: No Alcohol Use: None Drug Use: none Patient Lives Alone: No Significant Family History: no pertinent family hx - Nursing Vital Signs Nursing Vital Signs: Initial Vital Signs Temperature 97.7 F 06/27/17 11:19 Pulse Rate 65 06/27/17 11:19 Respiratory Rate 24 06/27/17 11:19 Blood Pressure 142/77 06/27/17 11:19 O2 Sat by Pulse Oximetry 94 L 06/27/17 11:19 Pain Scale Pain Intensity 2 - Physical Exam General Appearance: mild distress, other (well-developed well-nourished white male alert oriented 3) Eye Exam: PERRL/EOMI, eyes nml inspection Ears, Nose, Throat Exam: normal ENT inspection, moist mucous membranes Neck Exam: normal inspection, non-tender, supple, full range of motion Respiratory Exam: diminished breath sounds (mildly diminished breath sounds), No chest tenderness Cardiovascular Exam: regular rate/rhythm, normal heart sounds, normal peripheral pulses, capillary refill <2 sec, No murmur Gastrointestinal/Abdomen Exam: soft, normal bowel sounds, No tenderness, No mass Back Exam: normal inspection, normal range of motion, No CVA tenderness, No vertebral tenderness Extremity Exam: normal inspection, normal range of motion Neurologic Exam: alert, oriented x 3, cooperative, architecture consultant II-XII nml as tested, normal mood/affect, sensation nml, No motor deficits Skin Exam: normal color, warm, dry SpO2 Interpretation: normal (94%) SpO2: 94 Oxygen Delivery: Room Air - Course Nursing assessment & vital signs reviewed: Yes EKG Interpreted by Me: RATE (68 bpm), Sinus Rhythm, Left Tolna Deviation, Other ( EKG: Sinus rhythm 69 bpm left axis deviation poor anterior R-wave progression no acute ST or T wave changes noted, no acute changes as compared to September 29, 2016) - Radiology Exams Chest X-ray Interpretation: Interpreted by me, Other (cxr: no acute disease process noted.) - CT Exams Chest CT Interpretation: Tele-radiologist Report (CTA chest: Impression: No pulmonary embolism, stable adenopathy, no pleural tach versus small peripheral nodule in the right lung base) Ordered Tests: Active Orders 24 hr Category Date Time Status Platen Press Operator STAT Care 06/27/17 11:32 Active EKG-ER Only STAT Care 06/27/17 11:31 Active IV Insertion STAT Care 06/27/17 11:31 Active Pulse Oximetry (ED) STAT Care 06/27/17 11:47 Active CHEST 1 VIEW (PORTABLE) Stat Exams 06/27/17 11:47 Taken CHEST WITH CONTRAST [CT] Stat Exams 06/27/17 12:48 Taken CBC W DIFF Stat Lab 06/27/17 11:50 Completed CMP Stat Lab 06/27/17 11:50 Completed D-DIMER QUANTITATION Stat Lab 06/27/17 11:50 Completed NT PRO BNP Stat Lab 06/27/17 11:50 Completed PROTIME WITH INR Stat Lab 06/27/17 11:50 Completed PTT Stat Lab 06/27/17 11:50 Completed TROPONIN Q3H Lab 06/27/17 11:50 Completed TROPONIN Q3H Lab 06/27/17 15:00 Completed TROPONIN Q3H Lab 06/27/17 18:00 Ordered TROPONIN Q3H Lab 06/27/17 21:00 Ordered TROPONIN Q3H Lab 06/28/17 00:00 Ordered Respiratory Nebulizer STAT RT 06/27/17 11:48 Completed Medication Summary Generic Name Dose Route Start Last Admin Trade Name Freq PRN Reason Stop Dose Admin Sodium Chloride 1,000 mls @ 100 mls/hr 06/27/17 13:00 06/27/17 12:52 Sodium Chloride 0.9% 1000 Ml IV 07/27/17 12:59 100 mls/hr .Q10H ROHIT Administration Discontinued Medications Generic Name Dose Route Start Last Admin Trade Name Tay PRN Reason Stop Dose Admin Albuterol/Ipratropium 3 ml 06/27/17 11:48 06/27/17 12:06 Duoneb 0.5-3 Mg/3 Ml Neb IH 06/27/17 11:49 3 ml STAT ONE Administration Albuterol/Ipratropium Confirm 06/27/17 12:05 Duoneb 0.5-3 Mg/3 Ml Neb Administered 06/27/17 12:06 Dose 3 ml IH .STK-MED ONE Aspirin 324 mg 06/27/17 11:47 06/27/17 11:52 Baby Aspirin 81 Mg Chew PO 06/27/17 11:48 324 mg STAT ONE Administration Aspirin Confirm 06/27/17 11:52 Baby Aspirin 81 Mg Chew Administered 06/27/17 11:53 Dose 324 mg .ROUTE .STK-MED ONE Lab/Rad Data: Laboratory Result Diagrams 06/27/17 11:50 06/27/17 11:50 Laboratory Results 06/27/17 06/27/17 06/27/17 Range/Units 15:00 11:50 11:50 WBC (4.0-10.5) K/mm3 RBC (4.1-5.6) M/mm3 Hgb (12.5-18.0) gm/dl Hct (42-50) % MCV (78-100) fl MCH (26-32) pg MCHC (32-36) g/dl RDW (11.5-14.0) % Plt Count (150-450) K/mm3 MPV (6-9.5) fl Gran % (36.0-66.0) % Lymphocytes % (24.0-44.0) % Monocytes % (0.0-12.0) % Eosinophils % (0.00-5.0) % Basophils % (0.0-0.4) % Basophils # (0-0.4) INR 1.03 (0.8-3.0) APTT 32.0 (24.1-36.1) SECONDS D-Dimer 1390.70 H* (0-500) ng/mL Sodium (136-145) mEq/L Potassium (3.5-5.1) mEq/L Chloride (98-107) mEq/L Carbon Dioxide (21-32) mEq/L Anion Gap (5-15) MEQ/L BUN (9-20) mg/dL Creatinine (0.55-1.30) mg/dl Estimated GFR ML/MIN Glucose (70-110) MG/DL Calcium (8.5-10.1) mg/dL Total Bilirubin (0.2-1.0) mg/dL AST (15-37) U/L ALT (12-78) U/L Alkaline Phosphatase (46-116) U/L Troponin I < 0.017 < 0.017 (0.000-0.056) ng/ml NT-Pro-B Natriuret Pep (0-125) pg/ml Serum Total Protein (6.4-8.2) gm/dL Albumin (3.4-5.0) g/dL 06/27/17 06/27/17 Range/Units 11:50 11:50 WBC 5.5 (4.0-10.5) K/mm3 RBC 4.71 (4.1-5.6) M/mm3 Hgb 15.2 (12.5-18.0) gm/dl Hct 45.4 (42-50) % MCV 96.4 (78-100) fl MCH 32.3 H (26-32) pg MCHC 33.5 (32-36) g/dl RDW 13.4 (11.5-14.0) % Plt Count 174 (150-450) K/mm3 MPV 9.6 H (6-9.5) fl Gran % 59.1 (36.0-66.0) % Lymphocytes % 25.5 (24.0-44.0) % Monocytes % 8.3 (0.0-12.0) % Eosinophils % 6.9 H (0.00-5.0) % Basophils % 0.2 (0.0-0.4) % Basophils # 0.01 (0-0.4) INR (0.8-3.0) APTT (24.1-36.1) SECONDS D-Dimer (0-500) ng/mL Sodium 142 (136-145) mEq/L Potassium 4.2 (3.5-5.1) mEq/L Chloride 107 (98-107) mEq/L Carbon Dioxide 24.4 (21-32) mEq/L Anion Gap 14.5 (5-15) MEQ/L BUN 16 (9-20) mg/dL Creatinine 1.31 H (0.55-1.30) mg/dl Estimated GFR 58 ML/MIN Glucose 103 (70-110) MG/DL Calcium 9.0 (8.5-10.1) mg/dL Total Bilirubin 1.10 H (0.2-1.0) mg/dL AST 29 (15-37) U/L ALT 39 (12-78) U/L Alkaline Phosphatase 63 (46-116) U/L Troponin I (0.000-0.056) ng/ml NT-Pro-B Natriuret Pep 105 (0-125) pg/ml Serum Total Protein 7.1 (6.4-8.2) gm/dL Albumin 4.0 (3.4-5.0) g/dL - Progress Progress: improved Air Movement: fair Progress Note: 06/27/17 11:57 This is a 67-year-old white male with history of angina coronary artery disease hyperlipidemia high blood pressure and COPD. He arrives telling me that he thinks his lungs are acting up he states he's been having pain in his anterior sternal region described as a pressure worse with breathing symptoms which has been going on since yesterday evening at 8:00. Patient states he has somewhat of a cough which is nonproductive he is also had occasional wheezing. Patient does have a significant history of heart problems he has had a catheterization in the past as well as angina. Patient is on aspirin and Plavix he has not taken his aspirin today. Will give patient 324 mg of aspirin obtain routine cardiac labs. As well as chest x-ray. Will give patient DuoNeb treatment (mildly diminished) lung sauer on auscultation. 06/27/17 12:52 Patient's pain is improving unfortunately, patient has an elevated d-dimer of 1390 Will go ahead and order CTA chest. . 06/27/17 15:04 Still waiting CTA chest results apparently some type of technical issue patient stable at this time. 06/27/17 15:46 CTA chest no pulmonary embolism. Patient's repeat troponin within normal limits. Patient states he still feels short of breath.. Will discuss with Dr. Cheney who is covering for Odilia oPtts 06/27/17 16:04 Case is discussed with Dr. Cheney Will place patient on observation. Will begins IV steroids Rocephin and Zithromax. Obtain serial troponins. Continue duo neb treatments. - Departure Time of Disposition: 16:04 Departure Disposition: Observation Clinical Impression: COPD with exacerbation Chest pain Qualifiers: Chest pain type: unspecified Qualified Code(s): R07.9 - Chest pain, unspecified Condition: Fair Critical Care Time: No Referrals: NATALEE POTTS NP [Primary Care Provider] -
[2017-06-27 12:09] LABS: BASOPHIL % 0.2 % (0.0-0.4); Eosinophil % 6.9 % (0.00-5.0); Granulocytes % 59.1 % (36.0-66.0); Lymphocytes % 25.5 % (24.0-44.0); Mean Cell Volume 96.4 fl (78-100); Mean Corpuscular Hemoglobin 32.3 pg (26-32); Mean Platelet Volume 9.6 fl (6-9.5); Monocytes % 8.3 % (0.0-12.0); Platelet Count 174 K/mm3 (150-450); Red Blood Count 4.71 M/mm3 (4.1-5.6); Red Cell Distribution Width 13.4 % (11.5-14.0); White Blood Count 5.5 K/mm3 (4.0-10.5)
[2017-06-27 12:12] LABS: INR 1.03 (0.8-3.0); PROTIME 11.5 SECONDS (8.83-12.87)
[2017-06-27 12:26] LABS: ANION GAP 14.5 MEQ/L (5-15); BILIRUBIN,TOTAL 1.1 mg/dL (0.2-1.0); Carbon Dioxide 24.4 mEq/L (21-32); Potassium 4.2 mEq/L (3.5-5.1); Total Protein 7.1 gm/dL (6.4-8.2)
[2017-06-27] MEDS ORDERED: Sodium Chloride 0.9% 1000 ML 1,000 ML ONE (12:49)
[2017-06-27] MEDS ORDERED: Sodium Chloride 0.9% 1000 ML 1,000 ML IV SCH (13:00)
[2017-06-27] MEDS ORDERED: ROCEPHIN 1 Gm-D5w 50 ml Bag** 1 G/50 ML IVPB IV STA (16:05)
[2017-06-27] MEDS ORDERED: solu-MEDROL 125 MG IV ONE (16:05)
[2017-06-27] MEDS ORDERED: solu-MEDROL 125 MG ONE (16:12)
[2017-06-27] MEDS ORDERED: ROCEPHIN 1 Gm-D5w 50 ml Bag** 1 G/50 ML IVPB IV ONE (16:12)
[2017-06-27] MEDS ORDERED: DUONEB 0.5-3 MG/3 ml Neb IH PRN ×2 (16:47→17:05)
[2017-06-27] MEDS: solu-MEDROL 125 MG IV SCH ×2 (17:32→21:57)
--- NOTE | 2017-06-27 19:33 | XRAY ---
Indication: Short of breath. Comparison: December 25, 2016. Portable chest less inflated today and borderline enlarged. No focal infiltrate, consolidation, large effusion. Bony thorax intact. Impression: Nonacute underinflated chest.
[2017-06-27] MEDS: TENORMIN 50 MG PO SCH (21:57)
[2017-06-27] MEDS: Zocor 10MG PO SCH (22:02)
[2017-06-27] MEDS: Flomax 0.4 MG PO SCH (22:03)
[2017-06-27] MEDS: Multaq 400 MG PO SCH (22:17)
[2017-06-27] MEDS: DUONEB 0.5-3 MG/3 ml Neb IH SCH (22:23)
[2017-06-27] MEDS: Sodium Chloride 0.9% 1000 ML 1,000 ML IV SCH (23:26)
[2017-06-28] MEDS: solu-MEDROL 125 MG IV SCH ×4 (03:48→23:44)
[2017-06-28] MEDS ORDERED: DUONEB 0.5-3 MG/3 ml Neb IH ONE (06:59)
[2017-06-28] MEDS: DUONEB 0.5-3 MG/3 ml Neb IH SCH ×2 (07:35→18:53)
[2017-06-28] MEDS ORDERED: DUONEB 0.5-3 MG/3 ml Neb IH PRN (08:00)
[2017-06-28] MEDS: Sodium Chloride 0.9% 1000 ML 1,000 ML IV SCH ×2 (09:30→18:03)
[2017-06-28] MEDS ORDERED: NON-FORMULARY ITEM (Ranitidine Hcl [Ranitidine Hcl] 150 MG) PO SCH (10:00)
[2017-06-28] MEDS ORDERED: NON-FORMULARY ITEM (Fluticasone/Vilanterol [Breo Ellipta 200-25 Mcg Inh] 1 EACH) IH SCH (10:00)
[2017-06-28] MEDS ORDERED: SYNTHROID 50 MCG PO SCH (10:00)
[2017-06-28] MEDS: ECOTRIN 81 MG PO SCH (10:02)
[2017-06-28] MEDS: SYNTHROID 75 MCG PO SCH (10:02)
[2017-06-28] MEDS: CLARITIN 10 MG PO SCH (10:02)
[2017-06-28] MEDS: Pepcid 20 MG PO SCH (10:03)
[2017-06-28] MEDS: PLAVIX 75 MG Tablet PO SCH (10:03)
[2017-06-28] MEDS: Multaq 400 MG PO SCH ×2 (10:04→21:49)
[2017-06-28] MEDS: ROCEPHIN 1 Gm-D5w 50 ml Bag** 1 G/50 ML IVPB IV SCH (10:09)
[2017-06-28] MEDS ORDERED: MORPHINE SULFATE 4 MG INJ IV ONE (10:16)
[2017-06-28] MEDS: Nitrostat 0.4 MG Tablet SL PRN ×3 (10:19→10:41)
[2017-06-28] MEDS ORDERED: MORPHINE SULFATE 10 MG/ML ONE (10:37)
[2017-06-28] MEDS ORDERED: Zofran 4 MG/2 ML VIAL ONE (10:49)
[2017-06-28] MEDS ORDERED: Zofran 4 MG/2 ML VIAL IV STA (10:53)
[2017-06-28 11:04] LABS: BASOPHIL % 0.1 % (0.0-0.4); Granulocytes % 91.2 % (36.0-66.0); Lymphocytes % 6.7 % (24.0-44.0); Mean Cell Volume 95.4 fl (78-100); Mean Corpuscular Hemoglobin 31.9 pg (26-32); Mean Platelet Volume 9.8 fl (6-9.5); Platelet Count 192 K/mm3 (150-450); Red Blood Count 4.57 M/mm3 (4.1-5.6); White Blood Count 10.8 K/mm3 (4.0-10.5)
[2017-06-28 11:13] LABS: ALBUMIN 3.6 g/dL (3.4-5.0); ANION GAP 17.8 MEQ/L (5-15); BILIRUBIN,TOTAL 0.7 mg/dL (0.2-1.0); Potassium 3.7 mEq/L (3.5-5.1); Total Protein 6.8 gm/dL (6.4-8.2)
--- NOTE | 2017-06-28 11:37 | PCM.HP ---
History of Present Illness - Chief Complaint Chief Complaint: Chestpain exacerbation of COPD History of Present Illness: is a 67 year old male pt, sees Jaz Gilman ORGANIZATIONAL DEVELOPMENT MANAGER at [facility], who started having CP last night. D-dimer was elevated but CTA chest was negative for PE. L substernal 01/03 non radiating, somewhat worse wiht activity, wiht nausea and SOB. He came to ER where the pain improved. Troponins were negative x 5. EKG wiht no acute changes. He started having CP again this morning up to 01/03, was SOB, vomited x 1. Had nitro x 3 without immediate relief; also had morphine x 4mg IV x 1. His pain is now down to 11/03. He is being transferred to the ICU. I did speak with Dr. 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 Poe; he does not feel the patient needs transferred at this time. Troponin and EKG done during current CP episode were negative. CXR and CMP, CBC , and Mg are pending. - Review of Systems Respiratory: Short Of Breath Cardiac: Chest Pain Abdominal/Gastrointestinal: Nausea, Vomiting Psychological: No Depression, No Suicidal Ideations All Other Systems: Reviewed and Negative Medications & Allergies Home Medications: Home Medication List Aspirin 81 mg PO DAILY 08/02/16 [History Confirmed 06/27/17] Atenolol 12.5 mg PO QPM 08/02/16 [History Confirmed 06/27/17] Cholecalciferol (Vitamin D3) [Vitamin D3] 1,000 unit PO DAILY 08/02/16 [History Confirmed 06/27/17] Lovastatin 10 mg PO HS 08/02/16 [History Confirmed 06/27/17] Albuterol Sulfate [Albuterol Sulfate Hfa] 2 puffs IH Q4-6HPRN PRN #2 [id number] 08/06/16 [Rx Confirmed 06/27/17] Albuterol/Ipratropium 3ml Neb* [DUONEB 0.5-3 MG/3 ml Neb] 3 ml NEB QIDPRN PRN 09/29/16 [History Confirmed 06/27/17] Clopidogrel Bisulfate 75 mg [PLAVIX 75 MG Tablet] 75 mg PO DAILY 09/29/16 [History Confirmed 06/27/17] Dronedarone Hydrochloride 400* [Multaq 400 MG] 400 mg PO BID 09/29/16 [ History Confirmed 06/27/17] Levothyroxine Sodium 50 Mcg [Synthroid 50 Mcg] 75 mcg PO DAILY 09/29/16 [ History Confirmed 06/27/17] Tamsulosin HCl 0.4 mg [Flomax 0.4 MG] 0.4 mg PO HS 09/29/16 [History Confirmed 06/27/17] Loratadine 10 mg [Claritin 10 mg] 10 mg PO DAILY 12/17/16 [History Confirmed 06/27/17] Ranitidine HCl 150 mg PO DAILY 12/17/16 [History Confirmed 06/27/17] Fluticasone/Vilanterol [Breo Ellipta 200-25 Mcg INH] 1 each IH DAILY 03/10/17 [ History Confirmed 06/27/17] Allergies/Adverse Reactions: Allergies Allergy/AdvReac Type Severity Reaction Status Date / Time levofloxacin Allergy Intermediate Hives Verified 06/27/17 11:24 - Past Medical History Past Medical History: Yes Neurological History: No Pertinent History ENT History: Cataracts Cardiac History: Angina, Coronary Artery Disease, High Cholesterol, Hypertension Respiratory History: COPD, Pneumonia Endocrine Medical History: No Pertinent History Musculoskelatal History: Arthritis GI Medical History: GERD, Hemorrhoids History: No Pertinent History Pyscho-Social History: No Pertinent History Male Reproductive Disorders: Other - Past Surgical History Past Surgical History: Yes Neuro Surgical History: No Pertinent History Cardiac History: Cardiac Catheterization, Cardiac Stent, Other Respiratory Surgery: No Pertinent History GI Surgical History: Cholecystectomy Genitourinary Surgical Hx: No Pertinent History Musculskeletal Surgical Hx: No Pertinent History Male Surgical History: No Pertinent History Other Surgical History: heart cath with 2 stents aug 2016. Apr 2016 pt had biopsy of mediastinum lymphnodes - Social History Smoking Status: Never smoker Exposure to second hand smoke: No (past) Alcohol: None Drug Use: none Significant Family History: no pertinent family hx - Physical Exam Vital Signs: Vital Signs - 24 hr Temp Pulse Resp BP BP Pulse Ox 06/28/17 10:19 87 140/61 06/28/17 08:29 71 18 92 L 06/28/17 06:56 97.7 F 69 22 107/52 92 L 06/28/17 04:00 97.4 F 74 16 130/65 93 L 06/28/17 00:00 97.8 F 100 H 15 123/61 93 L 06/27/17 22:29 72 20 92 L 06/27/17 19:49 98.6 F 90 23 133/67 93 L 06/27/17 17:13 74 18 94 L 06/27/17 16:49 97.7 F 78 18 132/70 92 L 06/27/17 16:47 91 L 06/27/17 16:32 97.7 F 78 18 132/70 92 L 06/27/17 16:12 76 18 142/72 94 L 06/27/17 16:05 94 L 06/27/17 15:38 83 18 148/80 94 L 06/27/17 14:35 73 20 144/74 06/27/17 13:25 68 18 142/73 97 06/27/17 12:28 72 20 134/74 95 06/27/17 12:06 63 18 94 L 06/27/17 11:49 94 L Oxygen-Last 24 hours O2 Percentage 2 Liters = 28% O2 Percentage 2 Liters = 28% O2 Percentage 2 Liters = 28% General Appearance: moderate distress, alert, anxiety Neurologic Exam: oriented x 3, cooperative Eye Exam: eyes nml inspection Ears, Nose, Throat Exam: moist mucous membranes Neck Exam: normal inspection Respiratory Exam: normal breath sounds, lungs clear, No crackles/rales, No rhonchi, No wheezing Cardiovascular Exam: regular rate/rhythm, normal heart sounds, No murmur Gastrointestinal/Abdomen Exam: soft, normal bowel sounds, No tenderness, No mass , No guarding, No rebound Extremity Exam: No pedal edema, No swelling Skin Exam: normal color, warm, dry, other (scattered bruising LE bilat) Results - Labs Lab/Micro Results: Lab Results-Last 24 Hours 06/27/17 06/27/17 06/28/17 Range/Units 18:13 21:36 00:14 WBC (4.0-10.5) K/mm3 RBC (4.1-5.6) M/mm3 Hgb (12.5-18.0) gm/dl Hct (42-50) % MCV (78-100) fl MCH (26-32) pg MCHC (32-36) g/dl RDW (11.5-14.0) % Plt Count (150-450) K/mm3 MPV (6-9.5) fl Gran % (36.0-66.0) % Lymphocytes % (24.0-44.0) % Monocytes % (0.0-12.0) % Eosinophils % (0.00-5.0) % Basophils % (0.0-0.4) % Basophils # (0-0.4) Troponin I < 0.017 < 0.017 < 0.017 (0.000-0.056) ng/ml 06/28/17 06/28/17 Range/Units 10:30 10:30 WBC 10.8 H (4.0-10.5) K/mm3 RBC 4.57 (4.1-5.6) M/mm3 Hgb 14.6 (12.5-18.0) gm/dl Hct 43.6 (42-50) % MCV 95.4 (78-100) fl MCH 31.9 (26-32) pg MCHC 33.5 (32-36) g/dl RDW 13.0 (11.5-14.0) % Plt Count 192 (150-450) K/mm3 MPV 9.8 H (6-9.5) fl Gran % 91.2 H (36.0-66.0) % Lymphocytes % 6.7 L (24.0-44.0) % Monocytes % 2.0 (0.0-12.0) % Eosinophils % 0.0 (0.00-5.0) % Basophils % 0.1 (0.0-0.4) % Basophils # 0.01 (0-0.4) Troponin I < 0.017 (0.000-0.056) ng/ml - Radiology Impressions Radiology Exams & Impressions: Radiology Procedures Category Date Time Status CHEST 1 VIEW (PORTABLE) Stat Exams 06/28/17 10:43 Taken - Other Procedures and Tests Respiratory Therapy 06/27/17 17:11 Respiratory Nebulizer BID 06/27/17 17:12 Oxygen NASAL CANNULA 2 lpm 06/28/17 10:15 EKG STAT Assessment/Plan (1) Chest pain Current Visit: Yes Status: Acute Qualifiers: Chest pain type: unspecified Qualified Code(s): R07.9 - Chest pain, unspecified Assessment & Plan: Cardiac markers are negative, EKG without acute changes, and pain improving. Will see how the subsequent troponins look. Pt transferred to ICU. I did discuss with Dr. Calvo. CTA chest in ER was negative for PE. Code(s): R07.9 - CHEST PAIN, UNSPECIFIED (2) COPD exacerbation Current Visit: Yes Status: Acute Assessment & Plan: Being treated with rocephin and zithromax IV (day #2) with IV solumedrol. no wheezing this morning. Will decrease the solumedrol. Code(s): J44.1 - CHRONIC OBSTRUCTIVE PULMONARY DISEASE W (ACUTE) EXACERBATION (3) Coronary artery disease Current Visit: No Status: Acute Qualifiers: Coronary Disease-Associated Artery/Lesion type: [place] artery [place] vs. transplanted heart: [place] heart Associated angina: with unspecified angina Qualified Code(s): I25.119 - Atherosclerotic heart disease of [place] coronary artery with unspecified angina pectoris Assessment & Plan: sees Dr. Poe. Code(s): I25.10 - ATHSCL HEART DISEASE OF [place] CORONARY ARTERY W/O ANG PCTRS (4) Hypertension Current Visit: No Status: Acute Qualifiers: Hypertension type: essential hypertension Qualified Code(s): I10 - Essential (primary) hypertension Assessment & Plan: currently BP to 100 systolic after 3 nitro and 4mg morphine. Code(s): I10 - ESSENTIAL (PRIMARY) HYPERTENSION
[2017-06-28] MEDS: Advair Hfa 115/21 Common canister IH SCH (18:54)
--- NOTE | 2017-06-28 19:30 | XRAY ---
Indication: Rapid code. Severe chest pain. Comparison: June 27, 2017. Portable apical lordotic chest again slightly underinflated and clear. Multiple overlying monitoring leads. Heart is not enlarged for AP portable technique. No new/acute findings. Impression: Stable nonacute chest. Comment: Preliminary interpretation was made by [facility]. No discrepancy.
[2017-06-28] MEDS: Zocor 10MG PO SCH (21:49)
[2017-06-28] MEDS: Flomax 0.4 MG PO SCH (21:49)
[2017-06-28] MEDS: TENORMIN 50 MG PO SCH (21:50)
[2017-06-29] MEDS: Sodium Chloride 0.9% 1000 ML 1,000 ML IV SCH ×2 (04:06→17:43)
[2017-06-29] MEDS: solu-MEDROL 125 MG IV SCH ×3 (06:53→17:32)
[2017-06-29] MEDS: DUONEB 0.5-3 MG/3 ml Neb IH SCH ×2 (07:29→20:05)
[2017-06-29] MEDS: Advair Hfa 115/21 Common canister IH SCH ×2 (07:30→20:06)
--- NOTE | 2017-06-29 08:11 | PCM.NOTE ---
Date and Time: 06/29/17807 Subjective Assessment: patient denies chest pain this am. feels like his breathing has improved. tolerating po, currently on 3L oxygen. wears oxygen only at night when he is at home Objective Exam General Appearance: no apparent distress, alert Respiratory Exam: diminished breath sounds, No crackles/rales, No rhonchi, No wheezing Cardiovascular Exam: regular rate/rhythm, normal heart sounds Gastrointestinal/Abdomen Exam: soft, No tenderness, No mass Extremity Exam: normal inspection, normal range of motion OBJECTIVE DATA Vital Signs: Vital Signs - 24 hr Temp Pulse Resp BP BP Pulse Ox 06/29/17 07:32 77 18 94 L 06/29/17 04:00 97.6 F 81 12 98/63 93 L 06/29/17 00:00 97.6 F 72 15 112/49 92 L 06/28/17 23:45 76 06/28/17 20:00 97.6 F 83 14 102/61 93 L 06/28/17 19:19 70 17 96 06/28/17 16:00 97.6 F 71 17 100/66 97 06/28/17 12:00 96.6 F 81 16 96/62 96 06/28/17 10:19 87 140/61 06/28/17 08:29 71 18 92 L Oxygen-Last 24 hours O2 Percentage 2 Liters = 28% O2 Percentage 2 Liters = 28% O2 Percentage 2 Liters = 28% O2 Percentage 4 Liters = 36% O2 Percentage 4 Liters = 36% Oxygen Flowrate (L/min)-RT 2 Oxygen Flowrate (L/min)-RT 2 Oxygen Flowrate (L/min)-RT 2 Pain Assessment - Last Documented Pain Intensity 1 Pain Scale Used 0-10 Pain Scale Intake and Output: Intake & Output 06/26/17 06/27/17 06/28/17 06/29/17 11:59 11:59 11:59 11:59 Intake Total 1974 838 Output Total 575 Balance 1973 263 Weight 99.45 kg 101.378 kg Lab Results: Lab Results-Last 24 Hours 06/28/17 06/28/17 06/28/17 Range/Units 10:30 10:30 10:30 WBC 10.8 H (4.0-10.5) K/mm3 RBC 4.57 (4.1-5.6) M/mm3 Hgb 14.6 (12.5-18.0) gm/dl Hct 43.6 (42-50) % MCV 95.4 (78-100) fl MCH 31.9 (26-32) pg MCHC 33.5 (32-36) g/dl RDW 13.0 (11.5-14.0) % Plt Count 192 (150-450) K/mm3 MPV 9.8 H (6-9.5) fl Gran % 91.2 H (36.0-66.0) % Lymphocytes % 6.7 L (24.0-44.0) % Monocytes % 2.0 (0.0-12.0) % Eosinophils % 0.0 (0.00-5.0) % Basophils % 0.1 (0.0-0.4) % Basophils # 0.01 (0-0.4) Sodium 140 (136-145) mEq/L Potassium 3.7 (3.5-5.1) mEq/L Chloride 106 (98-107) mEq/L Carbon Dioxide 20.0 L (21-32) mEq/L Anion Gap 17.8 H (5-15) MEQ/L BUN 21 H (9-20) mg/dL Creatinine 1.39 H (0.55-1.30) mg/dl Estimated GFR 54 ML/MIN Glucose 212 H (70-110) MG/DL Calcium 8.6 (8.5-10.1) mg/dL Magnesium 2.0 (1.8-2.4) mg/dL Total Bilirubin 0.70 (0.2-1.0) mg/dL AST 17 (15-37) U/L ALT 37 (12-78) U/L Alkaline Phosphatase 58 (46-116) U/L Troponin I < 0.017 (0.000-0.056) ng/ml Serum Total Protein 6.8 (6.4-8.2) gm/dL Albumin 3.6 (3.4-5.0) g/dL 06/28/17 06/28/17 06/28/17 Range/Units 13:28 16:36 19:37 WBC (4.0-10.5) K/mm3 RBC (4.1-5.6) M/mm3 Hgb (12.5-18.0) gm/dl Hct (42-50) % MCV (78-100) fl MCH (26-32) pg MCHC (32-36) g/dl RDW (11.5-14.0) % Plt Count (150-450) K/mm3 MPV (6-9.5) fl Gran % (36.0-66.0) % Lymphocytes % (24.0-44.0) % Monocytes % (0.0-12.0) % Eosinophils % (0.00-5.0) % Basophils % (0.0-0.4) % Basophils # (0-0.4) Sodium (136-145) mEq/L Potassium (3.5-5.1) mEq/L Chloride (98-107) mEq/L Carbon Dioxide (21-32) mEq/L Anion Gap (5-15) MEQ/L BUN (9-20) mg/dL Creatinine (0.55-1.30) mg/dl Estimated GFR ML/MIN Glucose (70-110) MG/DL Calcium (8.5-10.1) mg/dL Magnesium (1.8-2.4) mg/dL Total Bilirubin (0.2-1.0) mg/dL AST (15-37) U/L ALT (12-78) U/L Alkaline Phosphatase (46-116) U/L Troponin I < 0.017 < 0.017 < 0.017 (0.000-0.056) ng/ml Serum Total Protein (6.4-8.2) gm/dL Albumin (3.4-5.0) g/dL 06/28/17 Range/Units 22:49 WBC (4.0-10.5) K/mm3 RBC (4.1-5.6) M/mm3 Hgb (12.5-18.0) gm/dl Hct (42-50) % MCV (78-100) fl MCH (26-32) pg MCHC (32-36) g/dl RDW (11.5-14.0) % Plt Count (150-450) K/mm3 MPV (6-9.5) fl Gran % (36.0-66.0) % Lymphocytes % (24.0-44.0) % Monocytes % (0.0-12.0) % Eosinophils % (0.00-5.0) % Basophils % (0.0-0.4) % Basophils # (0-0.4) Sodium (136-145) mEq/L Potassium (3.5-5.1) mEq/L Chloride (98-107) mEq/L Carbon Dioxide (21-32) mEq/L Anion Gap (5-15) MEQ/L BUN (9-20) mg/dL Creatinine (0.55-1.30) mg/dl Estimated GFR ML/MIN Glucose (70-110) MG/DL Calcium (8.5-10.1) mg/dL Magnesium (1.8-2.4) mg/dL Total Bilirubin (0.2-1.0) mg/dL AST (15-37) U/L ALT (12-78) U/L Alkaline Phosphatase (46-116) U/L Troponin I < 0.017 (0.000-0.056) ng/ml Serum Total Protein (6.4-8.2) gm/dL Albumin (3.4-5.0) g/dL Radiology Exams: Radiology Procedures Category Date Time Status CHEST 1 VIEW (PORTABLE) Stat Exams 06/28/17 10:43 Completed Assessment/Plan (1) COPD exacerbation Current Visit: Yes Status: Acute Assessment & Plan: improving, continue rocephin, IV solu medrol and nebs. Code(s): J44.1 - CHRONIC OBSTRUCTIVE PULMONARY DISEASE W (ACUTE) EXACERBATION (2) Chest pain Current Visit: Yes Status: Acute Qualifiers: Chest pain type: unspecified Qualified Code(s): R07.9 - Chest pain, unspecified Assessment & Plan: [place] ruled out Code(s): R07.9 - CHEST PAIN, UNSPECIFIED (3) Coronary artery disease Current Visit: No Status: Acute Qualifiers: Coronary Disease-Associated Artery/Lesion type: [place] artery [place] vs. transplanted heart: [place] heart Associated angina: with unspecified angina Qualified Code(s): I25.119 - Atherosclerotic heart disease of [place] coronary artery with unspecified angina pectoris Code(s): I25.10 - ATHSCL HEART DISEASE OF [place] CORONARY ARTERY W/O ANG PCTRS
[2017-06-29] MEDS: Pepcid 20 MG PO SCH (11:20)
[2017-06-29] MEDS: ECOTRIN 81 MG PO SCH (11:20)
[2017-06-29] MEDS: PLAVIX 75 MG Tablet PO SCH (11:21)
[2017-06-29] MEDS: CLARITIN 10 MG PO SCH (11:21)
[2017-06-29] MEDS: Multaq 400 MG PO SCH ×2 (11:21→21:00)
[2017-06-29] MEDS: SYNTHROID 75 MCG PO SCH (11:33)
[2017-06-29] MEDS: ROCEPHIN 1 Gm-D5w 50 ml Bag** 1 G/50 ML IVPB IV SCH (11:33)
[2017-06-29] MEDS: BENADRYL 50 MG/ML IV PRN (17:37)
[2017-06-29] MEDS: TENORMIN 50 MG PO SCH (20:59)
[2017-06-29] MEDS: Flomax 0.4 MG PO SCH (20:59)
[2017-06-29] MEDS: Zocor 10MG PO SCH (21:00)
[2017-06-30] MEDS: BENADRYL 50 MG/ML IV PRN ×2 (01:57→09:19)
[2017-06-30] MEDS: solu-MEDROL 125 MG IV SCH ×5 (02:06→23:46)
[2017-06-30] MEDS: Sodium Chloride 0.9% 1000 ML 1,000 ML IV SCH (04:04)
[2017-06-30 05:36] LABS: Mean Cell Volume 97.9 fl (78-100); Mean Corpuscular Hemoglobin 31.9 pg (26-32); Platelet Count 169 K/mm3 (150-450); Red Blood Count 3.76 M/mm3 (4.1-5.6); Red Cell Distribution Width 13.4 % (11.5-14.0); White Blood Count 7.2 K/mm3 (4.0-10.5)
[2017-06-30 05:59] LABS: ALBUMIN 2.9 g/dL (3.4-5.0); ALKALINE PHOSPHATASE 35 U/L (46-116); ANION GAP 13.3 MEQ/L (5-15); BLOOD UREA NITROGEN 26 mg/dL (9-20); CHLORIDE 111 mEq/L (98-107); Carbon Dioxide 21.5 mEq/L (21-32); Glucose 132 MG/DL (70-110); Potassium 4.4 mEq/L (3.5-5.1); SGOT/AST 14 U/L (15-37); SGPT/ALT 27 U/L (12-78); SODIUM 141 mEq/L (136-145); Total Protein 5.8 gm/dL (6.4-8.2)
[2017-06-30] MEDS: DUONEB 0.5-3 MG/3 ml Neb IH SCH ×2 (07:14→19:22)
[2017-06-30] MEDS: Advair Hfa 115/21 Common canister IH SCH ×2 (07:14→19:24)
--- NOTE | 2017-06-30 08:02 | PCM.NOTE ---
Date and Time: 06/30/17 08 Subjective Assessment: patient feeling a little better today, still dyspneic and requiring oxygen. Objective Exam General Appearance: no apparent distress, alert Skin Exam: normal color, warm, dry Respiratory Exam: prolonged expirations Cardiovascular Exam: regular rate/rhythm, normal heart sounds Gastrointestinal/Abdomen Exam: soft, No tenderness, No mass Extremity Exam: normal inspection, normal range of motion OBJECTIVE DATA Vital Signs: Vital Signs - 24 hr Temp Pulse Resp BP Pulse Ox 06/30/17 07:20 68 16 93 L 06/30/17 06:58 98.1 F 69 20 132/63 92 L 06/30/17 04:00 97.9 F 87 28 H 137/83 93 L 06/30/17 00:00 87 06/29/17 23:45 97.9 F 87 28 H 137/83 93 L 06/29/17 20:07 67 20 92 L 06/29/17 20:00 77 06/29/17 19:58 97.8 F 77 20 120/56 93 L 06/29/17 16:00 79 06/29/17 15:56 97.8 F 79 20 131/54 93 L 06/29/17 12:00 83 06/29/17 11:16 98.5 F 83 20 155/74 93 L Oxygen-Last 24 hours O2 Percentage 2 Liters = 28% O2 Percentage 2 Liters = 28% O2 Percentage 2 Liters = 28% O2 Percentage 2 Liters = 28% O2 Percentage 2 Liters = 28% O2 Percentage 2 Liters = 28% Pain Assessment - Last Documented Pain Intensity 0 Pain Scale Used 0-10 Pain Scale Intake and Output: Intake & Output 06/27/17 06/28/17 06/29/17 06/30/17 11:59 11:59 11:59 11:59 Intake Total 1078 1888 Output Total 575 Balance 503 1888 Weight 101.378 kg 103.618 kg Lab Results: Lab Results-Last 24 Hours 06/30/17 06/30/17 Range/Units 05:10 05:10 WBC 7.2 (4.0-10.5) K/mm3 RBC 3.76 L (4.1-5.6) M/mm3 Hgb 12.0 L (12.5-18.0) gm/dl Hct 36.8 L (42-50) % MCV 97.9 (78-100) fl MCH 31.9 (26-32) pg MCHC 32.6 (32-36) g/dl RDW 13.4 (11.5-14.0) % Plt Count 169 (150-450) K/mm3 MPV 10.0 H (6-9.5) fl Sodium 141 (136-145) mEq/L Potassium 4.4 (3.5-5.1) mEq/L Chloride 111 H (98-107) mEq/L Carbon Dioxide 21.5 (21-32) mEq/L Anion Gap 13.3 (5-15) MEQ/L BUN 26 H (9-20) mg/dL Creatinine 1.14 (0.55-1.30) mg/dl Estimated GFR > 60 ML/MIN Glucose 132 H (70-110) MG/DL Calcium 7.9 L (8.5-10.1) mg/dL Total Bilirubin 0.40 (0.2-1.0) mg/dL AST 14 L (15-37) U/L ALT 27 (12-78) U/L Alkaline Phosphatase 35 L (46-116) U/L Serum Total Protein 5.8 L (6.4-8.2) gm/dL Albumin 2.9 L (3.4-5.0) g/dL Assessment/Plan (1) COPD exacerbation Current Visit: Yes Status: Acute Assessment & Plan: continue IV solu medrol, rocephin, nebs and oxygen. Code(s): J44.1 - CHRONIC OBSTRUCTIVE PULMONARY DISEASE W (ACUTE) EXACERBATION (2) Chest pain Current Visit: Yes Status: Acute Qualifiers: Chest pain type: unspecified Qualified Code(s): R07.9 - Chest pain, unspecified Code(s): R07.9 - CHEST PAIN, UNSPECIFIED (3) Coronary artery disease Current Visit: No Status: Acute Qualifiers: Coronary Disease-Associated Artery/Lesion type: [place] artery [place] vs. transplanted heart: [place] heart Associated angina: with unspecified angina Qualified Code(s): I25.119 - Atherosclerotic heart disease of [place] coronary artery with unspecified angina pectoris Code(s): I25.10 - ATHSCL HEART DISEASE OF [place] CORONARY ARTERY W/O ANG PCTRS
[2017-06-30] MEDS: CLARITIN 10 MG PO SCH (08:47)
[2017-06-30] MEDS: Pepcid 20 MG PO SCH (08:47)
[2017-06-30] MEDS: ECOTRIN 81 MG PO SCH (08:47)
[2017-06-30] MEDS: SYNTHROID 75 MCG PO SCH (08:48)
[2017-06-30] MEDS: ROCEPHIN 1 Gm-D5w 50 ml Bag** 1 G/50 ML IVPB IV SCH (08:48)
[2017-06-30] MEDS: Multaq 400 MG PO SCH ×2 (08:48→22:05)
[2017-06-30] MEDS: PLAVIX 75 MG Tablet PO SCH (08:48)
[2017-06-30] MEDS ORDERED: ENOXAPARIN SODIUM SQ SCH (10:00)
--- NOTE | 2017-06-30 10:15 | XRAY ---
Indication: Short of breath and chest tightness. Elevated d-dimer. Multiple contiguous axial images obtained through the chest using 80 cc Isovue 370 contrast and PE protocol. Comparison: January 27, 2016. There is adequate opacification of the pulmonary arteries. Minimal respiration artifact degrades the study and limits evaluation of the segmental branches. Again no filling defect or pulmonary embolus. Heart remains borderline enlarged with prominent pericardiac fat. Aorta is normal in course and caliber. No pathologic mediastinal/hilar lymphadenopathy. Examination of the lung parenchyma again demonstrates minimal bibasilar dependent atelectasis less than before. New peripheral right lower lobe fibrosis/scarring. No suspicious pulmonary mass, infiltrate, or effusion. Bony thorax intact again with minimal degenerative changes throughout the spine. Limited upper abdomen again demonstrates mild fatty liver, cholecystectomy clips, and 12.6 cm splenomegaly. Impression: 1. Respiration artifact. No central pulmonary embolus. 2. No acute cardiopulmonary abnormalities. 3. Stable borderline cardiomegaly, fatty liver, and splenomegaly. Comment: Preliminary interpretation was made by [facility]. No critical discrepancy. CTDI 23.57
[2017-06-30 10:25] LABS: Platelet Estimate NORMAL (NORMAL); Total Cells Counted 100
[2017-06-30] MEDS: Flomax 0.4 MG PO SCH (22:05)
[2017-06-30] MEDS: Zocor 10MG PO SCH (22:05)
[2017-06-30] MEDS: TENORMIN 50 MG PO SCH (22:06)
[2017-07-01] MEDS: Sodium Chloride 0.9% 1000 ML 1,000 ML IV SCH (03:09)
[2017-07-01 05:46] LABS: Mean Cell Volume 97.7 fl (78-100); Mean Corpuscular Hemoglobin 32.2 pg (26-32); Mean Platelet Volume 9.6 fl (6-9.5); Platelet Count 158 K/mm3 (150-450); Red Blood Count 3.85 M/mm3 (4.1-5.6); Red Cell Distribution Width 13.4 % (11.5-14.0); White Blood Count 6.3 K/mm3 (4.0-10.5)
[2017-07-01 06:08] LABS: ANION GAP 13.4 MEQ/L (5-15); BLOOD UREA NITROGEN 23 mg/dL (9-20); CHLORIDE 113 mEq/L (98-107); Carbon Dioxide 22.5 mEq/L (21-32); Glucose 142 MG/DL (70-110); Potassium 4.1 mEq/L (3.5-5.1); SODIUM 145 mEq/L (136-145)
[2017-07-01] MEDS: solu-MEDROL 125 MG IV SCH (06:22)
[2017-07-01] MEDS: Advair Hfa 115/21 Common canister IH SCH (07:07)
[2017-07-01] MEDS: DUONEB 0.5-3 MG/3 ml Neb IH SCH (07:07)
[2017-07-01 07:28] VITALS: BP 160/74; PULSE 78; O2SAT 93
[2017-07-01 07:46] LABS: BAND 2 % (0.0-2.0); Platelet Estimate NORMAL (NORMAL); Total Cells Counted 100
--- NOTE | 2017-07-01 09:07 | PCM.DS ---
Discharge Summary Date of Admission: 06/28/17 11:32 Admitting Physician: GALEN COLE Primary Care Provider: NATALEE POTTS Allergies Allergies levofloxacin Allergy (Intermediate, Verified 06/27/17 11:24) [facility] Summary - Hospital Course Hospital Course: patient admitted with cough, shortness of breath and congestion, developed chest pain following admission. [place] was ruled out and seemed to be pleuritic pain. doing well now, back to his baseline. has oxygen at home that he wears at night. - Vitals & Intake/Output Vital Signs: Vital Signs Temperature 98.0 F 07/01/17 07:27 Pulse Rate 78 07/01/17 07:27 Respiratory Rate 18 07/01/17 07:27 Blood Pressure 160/74 07/01/17 07:27 O2 Sat by Pulse Oximetry 93 L 07/01/17 07:27 Oxygen-Last Documented O2 Percentage 3 Liters = 32% Intake & Output: Intake & Output 06/28/17 06/29/17 06/30/17 07/01/17 11:59 11:59 11:59 11:59 Intake Total 1078 2128 1673 Output Total 575 Balance 503 2128 1673 Weight 101.378 kg 103.618 kg 103.918 kg - Lab Result Diagrams: 07/01/17 05:30 07/01/17 05:30 Lab Results-Last 24 Hrs: Lab Results-Last 24 Hours 06/30/17 07/01/17 07/01/17 Range/Units 05:10 05:30 05:30 WBC 6.3 (4.0-10.5) K/mm3 RBC 3.85 L (4.1-5.6) M/mm3 Hgb 12.4 L (12.5-18.0) gm/dl Hct 37.6 L (42-50) % MCV 97.7 (78-100) fl MCH 32.2 H (26-32) pg MCHC 33.0 (32-36) g/dl RDW 13.4 (11.5-14.0) % Plt Count 158 (150-450) K/mm3 MPV 9.6 H (6-9.5) fl Segmented Neutrophils 95 H 90 H (36.-66.) % Band Neutrophils 2 (0.0-2.0) % Lymphocytes (Manual) 5 L 7 L (24-44) % Monocytes (Manual) 1 (0.0-12.0) % Differential Comment NORMAL NORMAL Platelet Estimate NORMAL NORMAL (NORMAL) Sodium 145 (136-145) mEq/L Potassium 4.1 (3.5-5.1) mEq/L Chloride 113 H (98-107) mEq/L Carbon Dioxide 22.5 (21-32) mEq/L Anion Gap 13.4 (5-15) MEQ/L BUN 23 H (9-20) mg/dL Creatinine 1.07 (0.55-1.30) mg/dl Estimated GFR > 60 ML/MIN Glucose 142 H (70-110) MG/DL Calcium 8.0 L (8.5-10.1) mg/dL - Procedures and Test Procedures and Tests throughout Hospitalization: Therapy Orders & Screens 06/27/17 17:11 Respiratory Nebulizer BID Comment: Diagnosis: Chestpain exacerbation of COPD 06/27/17 17:12 Oxygen NASAL CANNULA 2 lpm Comment: Diagnosis: Chestpain exacerbation of COPD 06/29/17 20:06 Respiratory MDI BID Comment: KARSTEN / Diagnosis: Chestpain exacerbation of COPD Discharge Exam General Appearance: no apparent distress, alert Skin Exam: normal color, warm, dry Respiratory Exam: diminished breath sounds, prolonged expirations, No crackles/ rales, No rhonchi, No wheezing Cardiovascular Exam: regular rate/rhythm, normal heart sounds Gastrointestinal/Abdomen Exam: soft, No tenderness, No mass Extremity Exam: normal inspection, normal range of motion Final Diagnosis/Problem List - Final Discharge Diagnosis/Problem (1) COPD exacerbation Current Visit: Yes Status: Acute Assessment & Plan: home on po augmentin, prednisone taper. has nebs at home. advised to continue every 4 hours while awake at home. f/u in office in 1 week (2) Chest pain Current Visit: Yes Status: Acute (3) Coronary artery disease Current Visit: No Status: Acute - Discharge Disposition: Home, Self-Care Condition: Good Prescriptions: New Amoxicillin/Potassium Clav [Augmentin 500-125 Tablet] 500 mg PO TID #21 tablet Prednisone 20 mg [Deltasone 20 mg] 20 mg PO UD #18 tablet Continue Aspirin 81 mg PO DAILY Lovastatin 10 mg PO HS Cholecalciferol (Vitamin D3) [Vitamin D3] 1,000 unit PO DAILY Atenolol 12.5 mg PO QPM Albuterol Sulfate [Albuterol Sulfate Hfa] 2 puffs IH Q4-6HPRN PRN #2 [id number] PRN Reason: Cough Tamsulosin HCl 0.4 mg [Flomax 0.4 MG] 0.4 mg PO HS Dronedarone Hydrochloride 400* [Multaq 400 MG] 400 mg PO BID Clopidogrel Bisulfate 75 mg [PLAVIX 75 MG Tablet] 75 mg PO DAILY Levothyroxine Sodium 50 Mcg [Synthroid 50 Mcg] 75 mcg PO DAILY Albuterol/Ipratropium 3ml Neb* [DUONEB 0.5-3 MG/3 ml Neb] 3 ml NEB QIDPRN PRN PRN Reason: Shortness Of Breath Loratadine 10 mg [Claritin 10 mg] 10 mg PO DAILY Ranitidine HCl 150 mg PO DAILY Fluticasone/Vilanterol [Breo Ellipta 200-25 Mcg INH] 1 each IH DAILY Additional Instructions: take prednisone and augmentin as directed, use nebulizer every 4 hours while awake. stay off of work for the next week until followup in the office. Follow up with: NATALEE POTTS NP [Primary Care Provider] - Forms: Patient Portal Information
[2017-07-01] MEDS: ECOTRIN 81 MG PO SCH (10:31)
[2017-07-01] MEDS: Pepcid 20 MG PO SCH (10:31)
[2017-07-01] MEDS: PLAVIX 75 MG Tablet PO SCH (10:31)
[2017-07-01] MEDS: SYNTHROID 75 MCG PO SCH (10:32)
[2017-07-01] MEDS: CLARITIN 10 MG PO SCH (10:32)
[2017-07-01] MEDS: Multaq 400 MG PO SCH (10:32)
== END 2017-07-01 10:45 | disposition home or self-care (01) | DRG 192 ==
LOC: ED 11:14 → MED SURG 16:29 → OBSVTOIN 06-28 11:32 → ICU 06-28 11:55 → MED SURG 06-29 09:00
PROVIDERS: ADMIT Family Medicine; ATTEND Family Medicine
DX: J44.1 Chronic obstructive pulmonary disease with (acute) exacerbation (principal); I25.119 Atherosclerotic heart disease of native coronary artery with unspecified angina pectoris; I10 Essential (primary) hypertension; K21.9 Gastro-esophageal reflux disease without esophagitis; Z79.899 Other long term (current) drug therapy; M19.90 Unspecified osteoarthritis, unspecified site
CPT/HCPCS: 36000; 36415; 71010; 71260; 80048; 80053; 83735; 83880; 84484; 85025; 85379; 85610; 85730; 87040; 93005; 93041; 94640; 94760; 96360; 96361; 96374; 99285; G0378; J0696; J1200; J1650; J2270; J2405; J2930; A9270-GY

== ENCOUNTER 2018-05-13 08:40 | Emergency (ER) | payer MEDICARE ==
[2018-05-13] MEDS ORDERED: MORPHINE SULFATE 2 MG INJ IV ONE (08:51)
[2018-05-13] MEDS ORDERED: Sodium Chloride 0.9% 1000 ML 1,000 ML IV STA (08:51)
[2018-05-13] MEDS ORDERED: MORPHINE SULFATE 2 MG INJ ONE (08:55)
[2018-05-13] MEDS ORDERED: Sodium Chloride 0.9% 1000 ML 1,000 ML ONE ×2 (08:56→10:23)
--- NOTE | 2018-05-13 08:56 | ERPHSYRPT ---
- History of Present Illness Time Seen by Provider: 05/13/18 08:54 Historian: patient Physician History: mild to mod lower abdominal cramps for 2 days, nonrad, no injury, no NV, hx constipation, nasal surgery at [facility] last Thursday Allergies/Adverse Reactions: levofloxacin Allergy (Intermediate, Verified 05/13/18 08:51) Hives Home Medications: Aspirin 81 mg PO DAILY 08/02/16 [History] Atenolol 25 mg PO QPM 08/02/16 [History] Cholecalciferol (Vitamin D3) [Vitamin D3] 1,000 unit PO DAILY 08/02/16 [History] Lovastatin 10 mg PO HS 08/02/16 [History] Clopidogrel Bisulfate 75 mg [PLAVIX 75 MG Tablet] 75 mg PO DAILY 09/29/16 [History] Dronedarone Hydrochloride 400* [Multaq 400 MG] 400 mg PO BID 09/29/16 [ History] Levothyroxine Sodium 50 Mcg [Synthroid 50 Mcg] 75 mcg PO DAILY 09/29/16 [ History] Tamsulosin HCl 0.4 mg [Flomax 0.4 MG] 0.4 mg PO HS 09/29/16 [History] Loratadine 10 mg [Claritin 10 mg] 10 mg PO DAILY 12/17/16 [History] raNITIdine HCl [Ranitidine HCl] 150 mg PO DAILY 12/17/16 [History] Fluticasone/Vilanterol [Breo Ellipta 200-25 Mcg INH] 1 each IH DAILY 03/10/17 [ History] Budesonide/Formoterol Fumarate [Symbicort 80-4.5 Mcg Inhaler] 6.9 gm IH BID [History] Piroxicam [Feldene] 10 mg PO DAILY 05/13/18 [History] Hx Tetanus, Diphtheria Vaccination/Date Given: Yes Hx Influenza Vaccination/Date Given: Yes Hx Pneumococcal Vaccination/Date Given: No - Review of Systems Constitutional: No Fever Eyes: No Vision Changes Ears, Nose, & Throat: No Mouth Pain Respiratory: No Dyspnea Cardiac: No Chest Pain Abdominal/Gastrointestinal: Abdominal Pain, No Vomiting Genitourinary Symptoms: No Dysuria Musculoskeletal: No Back Pain Skin: No Rash Neurological: No Dizziness - Past Medical History Pertinent Past Medical History: Yes Neurological History: No Pertinent History ENT History: Cataracts Cardiac History: Angina, Coronary Artery Disease, High Cholesterol, Hypertension Respiratory History: COPD, Pneumonia Endocrine Medical History: No Pertinent History Musculoskeletal History: Arthritis GI Medical History: GERD, Hemorrhoids History: No Pertinent History Psycho-Social History: No Pertinent History Male Reproductive Disorders: Other - Past Surgical History Past Surgical History: Yes Neuro Surgical History: No Pertinent History Cardiac: Cardiac Catheterization, Cardiac Stent, Other Respiratory: No Pertinent History Gastrointestinal: Cholecystectomy Genitourinary: No Pertinent History Musculoskeletal: No Pertinent History Male Surgical History: No Pertinent History Other Surgical History: heart cath with 2 stents aug 2016. Apr 2016 pt had biopsy of mediastinum lymphnodes - Social History Smoking Status: Never smoker Exposure to second hand smoke: No (past) Alcohol Use: None Drug Use: none Patient Lives Alone: No Significant Family History: no pertinent family hx - Nursing Vital Signs Nursing Vital Signs: Initial Vital Signs Temperature 97.9 F 05/13/18 08:41 Pulse Rate 70 05/13/18 08:41 Respiratory Rate 16 05/13/18 08:41 Blood Pressure 124/69 05/13/18 08:41 O2 Sat by Pulse Oximetry 96 05/13/18 08:41 Pain Scale Pain Intensity 10 - Physical Exam General Appearance: no apparent distress Eye Exam: eyes nml inspection Ears, Nose, Throat Exam: moist mucous membranes Neck Exam: non-tender Respiratory Exam: normal breath sounds Cardiovascular Exam: regular rate/rhythm Gastrointestinal/Abdomen Exam: soft, tenderness, No rebound Extremity Exam: pelvis stable, No swelling Neurologic Exam: alert, oriented x 3, cooperative Skin Exam: warm, dry - Course Nursing assessment & vital signs reviewed: Yes EKG Interpreted by Me: Other (nsr 69 no stemi) - CT Exams Abdomen/Pelvis CT Interpretation: Discussed w/radiologist, Other (no obstruction) Ordered Tests: Active Orders 24 hr Category Date Time Status EKG-ER Only STAT Care 05/13/18 08:51 Active Bell [Catheter-[place] Bell] STAT Care 05/13/18 09:40 Active IV Insertion STAT Care 05/13/18 08:51 Active NPO (ED) STAT Care 05/13/18 08:51 Active ABDOMEN AND PELVIS W/0 CONTRAS [CT] Stat Exams 05/13/18 08:51 Completed CHEST 1 VIEW (PORTABLE) Stat Exams 05/13/18 08:51 Completed CBC W DIFF Stat Lab 05/13/18 08:55 Completed CMP Stat Lab 05/13/18 08:55 Completed CULTURE,URINE Stat Lab 05/13/18 09:50 Received LIPASE Stat Lab 05/13/18 08:55 Completed Lactic Acid Stat Lab 05/13/18 08:51 Completed Manual Differential NC Stat Lab 05/13/18 08:55 Completed PROTIME WITH INR Stat Lab 05/13/18 08:55 Completed TROPONIN Q3H Lab 05/13/18 08:55 Completed TROPONIN Q3H Lab 05/13/18 12:05 Received TROPONIN Q3H Lab 05/13/18 15:00 Ordered TROPONIN Q3H Lab 05/13/18 18:00 Ordered TROPONIN Q3H Lab 05/13/18 21:00 Ordered UA W/RFX UR CULTURE Stat Lab 05/13/18 09:50 Completed Peak Expiratory Flow Rate ONCE RT 05/13/18 10:35 Active Respiratory Nebulizer STAT RT 05/13/18 10:16 Completed Respiratory Therapy Assessment DAILY RT 05/13/18 10:34 Active Respiratory Therapy Consult ONCE RT 05/13/18 10:34 Completed Medication Summary Generic Name Dose Route Start Last Admin Trade Name Freq PRN Reason Stop Dose Admin Sodium Chloride 1,000 mls @ 30 mls/hr 05/13/18 10:15 05/13/18 10:24 Sodium Chloride 0.9% 1000 Ml IV 06/12/18 10:14 30 mls/hr .Q24H ROHIT Administration Discontinued Medications Generic Name Dose Route Start Last Admin Trade Name Freq PRN Reason Stop Dose Admin Albuterol/Ipratropium 3 ml 05/13/18 10:16 05/13/18 10:26 Duoneb 0.5-3 Mg/3 Ml Neb IH 05/13/18 10:17 3 ml STAT ONE Administration Albuterol/Ipratropium Confirm 05/13/18 10:25 Duoneb 0.5-3 Mg/3 Ml Neb Administered 05/13/18 10:26 Dose 3 ml IH .STK-MED ONE Hydromorphone HCl 1 mg 05/13/18 09:35 05/13/18 09:44 Hydromorphone 1 Mg/Ml Ampule IV 05/13/18 09:36 1 mg STAT ONE Administration Hydromorphone HCl Confirm 05/13/18 09:37 Hydromorphone 1 Mg/Ml Ampule Administered 05/13/18 09:38 Dose 1 mg .ROUTE .STK-MED ONE Sodium Chloride 1,000 mls @ 999 mls/hr 05/13/18 08:51 05/13/18 10:25 Sodium Chloride 0.9% 1000 Ml IV 05/13/18 09:51 999 mls/hr .Q1H1M STA Infusion Sodium Chloride Confirm 05/13/18 08:56 Sodium Chloride 0.9% 1000 Ml Administered 05/13/18 08:57 Dose 1,000 mls @ ud .ROUTE .STK-MED ONE Morphine Sulfate 2 mg 05/13/18 08:51 05/13/18 09:01 Morphine Sulfate 2 Mg Inj IV 05/13/18 08:52 2 mg STAT ONE Administration Morphine Sulfate Confirm 05/13/18 08:55 Morphine Sulfate 2 Mg Inj Administered 05/13/18 08:56 Dose 2 mg .ROUTE .STK-MED ONE Ondansetron HCl 4 mg 05/13/18 09:10 05/13/18 09:11 Zofran 4 Mg/2 Ml Vial IV 05/13/18 09:11 4 mg STAT ONE Administration Ondansetron HCl Confirm 05/13/18 09:10 Zofran 4 Mg/2 Ml Vial Administered 05/13/18 09:11 Dose 4 mg .ROUTE .STK-MED ONE Lab/Rad Data: Laboratory Result Diagrams 05/13/18 08:55 05/13/18 08:55 Laboratory Results 05/13/18 05/13/18 05/13/18 Range/Units 09:50 08:55 08:55 WBC (4.0-10.5) K/mm3 RBC (4.1-5.6) M/mm3 Hgb (12.5-18.0) gm/dl Hct (42-50) % MCV (78-100) fl MCH (26-32) pg MCHC (32-36) g/dl RDW (11.5-14.0) % Plt Count (150-450) K/mm3 MPV (6-9.5) fl Absolute Granulocytes (1.4-6.9) Segmented Neutrophils (36.-66.) % Lymphocytes (Manual) (24-44) % Monocytes (Manual) (0.0-12.0) % Platelet Estimate (NORMAL) RBC Morphology PT 12.1 (8.83-12.87) SECONDS INR 1.04 (0.8-3.0) Sodium (137-145) mmol/L Potassium (3.5-5.1) mmol/L Chloride (98-107) mmol/L Carbon Dioxide (22-30) mmol/L Anion Gap (5-15) MEQ/L BUN (9-20) mg/dL Creatinine (0.66-1.25) mg/dL Estimated GFR ML/MIN Glucose (74-106) mg/dL Lactic Acid (0.4-2.0) Calcium (8.4-10.2) mg/dL Total Bilirubin (0.2-1.3) mg/dL AST (17-59) U/L ALT (0-50) U/L Alkaline Phosphatase (38-126) U/L Troponin I < 0.012 (0.000-0.034) ng/mL Serum Total Protein (6.3-8.2) g/dL Albumin (3.5-5.0) g/dL Lipase (23-300) U/L Urine Color YELLOW (YELLOW) Urine Appearance CLEAR (CLEAR) Urine pH 6.0 (5-6) Ur Specific [place] 1.014 (1.005-1.025) Urine Protein NEGATIVE (Negative) Urine Ketones NEGATIVE (NEGATIVE) Urine Blood SMALL (0-5) Giovanni/ul Urine Nitrite NEGATIVE (NEGATIVE) Urine Bilirubin NEGATIVE (NEGATIVE) Urine Urobilinogen 2 (0-1) mg/dL Ur Leukocyte Esterase TRACE (NEGATIVE) Urine WBC (Auto) 16-25 (0-5) /HPF Urine RBC (Auto) 6-10 (0-2) /HPF U Epithel Cells (Auto) NONE SEEN (FEW) /HPF Urine Bacteria (Auto) RARE (NEGATIVE) /HPF Urine Mucus (Auto) SLIGHT (NEGATIVE) /HPF Urine Culture Reflexed YES (NO) Urine Glucose NEGATIVE (NEGATIVE) mg/dL 05/13/18 05/13/18 05/13/18 Range/Units 08:55 08:55 08:51 WBC 16.4 H (4.0-10.5) K/mm3 RBC 4.92 (4.1-5.6) M/mm3 Hgb 16.0 (12.5-18.0) gm/dl Hct 46.8 (42-50) % MCV 95.1 (78-100) fl MCH 32.5 H (26-32) pg MCHC 34.2 (32-36) g/dl RDW 15.2 H (11.5-14.0) % Plt Count 157 (150-450) K/mm3 MPV 9.4 (6-9.5) fl Absolute Granulocytes 13.35 H (1.4-6.9) Segmented Neutrophils 76 H (36.-66.) % Lymphocytes (Manual) 18 L (24-44) % Monocytes (Manual) 6 (0.0-12.0) % Platelet Estimate NORMAL (NORMAL) RBC Morphology NORMAL PT (8.83-12.87) SECONDS INR (0.8-3.0) Sodium 137 (137-145) mmol/L Potassium 3.7 (3.5-5.1) mmol/L Chloride 100 (98-107) mmol/L Carbon Dioxide 29 (22-30) mmol/L Anion Gap 11.6 (5-15) MEQ/L BUN 16 (9-20) mg/dL Creatinine 0.96 (0.66-1.25) mg/dL Estimated GFR > 60.0 ML/MIN Glucose 110 H (74-106) mg/dL Lactic Acid 1.3 (0.4-2.0) Calcium 8.6 (8.4-10.2) mg/dL Total Bilirubin 2.30 H (0.2-1.3) mg/dL AST 16 L (17-59) U/L ALT 23 (0-50) U/L Alkaline Phosphatase 70 (38-126) U/L Troponin I (0.000-0.034) ng/mL Serum Total Protein 6.6 (6.3-8.2) g/dL Albumin 3.8 (3.5-5.0) g/dL Lipase 216 (23-300) U/L Urine Color (YELLOW) Urine Appearance (CLEAR) Urine pH (5-6) Ur Specific [place] (1.005-1.025) Urine Protein (Negative) Urine Ketones (NEGATIVE) Urine Blood (0-5) Giovanni/ul Urine Nitrite (NEGATIVE) Urine Bilirubin (NEGATIVE) Urine Urobilinogen (0-1) mg/dL Ur Leukocyte Esterase (NEGATIVE) Urine WBC (Auto) (0-5) /HPF Urine RBC (Auto) (0-2) /HPF U Epithel Cells (Auto) (FEW) /HPF Urine Bacteria (Auto) (NEGATIVE) /HPF Urine Mucus (Auto) (NEGATIVE) /HPF Urine Culture Reflexed (NO) Urine Glucose (NEGATIVE) mg/dL - Progress Progress: improved Progress Note: 05/13/18 12:35 pt improved after 1400 cc of urine relieved by bell, pt provided leg bag, bactrim ds, follow up w/ Dr Umaña [id number] in 2 days, return if worse, differential d/w pt as prostate cancer or prostatitis, dilaudid and morphine warnings given - Departure Time of Disposition: 12:37 Departure Disposition: Home Clinical Impression: Urine retention Condition: Stable Critical Care Time: No Referrals: NATALEE POTTS, BAG MACHINE SET UP OPERATOR [Primary Care Provider] - Additional Instructions: see Dr Umaña, return if worse, bactrim ds, bell and leg bag Prescriptions: Smz/Tmp Ds Tablet [Bactrim Ds Tablet] 1 udtab PO BID #20 tablet
[2018-05-13 09:06] LABS: Granulocyte Absolute (ANC) 13.35 (1.4-6.9); Hematocrit 46.8 % (42-50); Mean Cell Volume 95.1 fl (78-100); Mean Corpuscular Hemoglobin 32.5 pg (26-32); Mean Corpuscular Hgb Concent. 34.2 g/dl (32-36); Mean Platelet Volume 9.4 fl (6-9.5); Platelet Count 157 K/mm3 (150-450); Red Blood Count 4.92 M/mm3 (4.1-5.6); Red Cell Distribution Width 15.2 % (11.5-14.0); White Blood Count 16.4 K/mm3 (4.0-10.5)
[2018-05-13] MEDS ORDERED: Zofran 4 MG/2 ML VIAL IV ONE (09:10)
[2018-05-13] MEDS ORDERED: Zofran 4 MG/2 ML VIAL ONE (09:10)
[2018-05-13 09:22] LABS: INR 1.04 (0.8-3.0)
[2018-05-13 09:27] LABS: ALBUMIN 3.8 g/dL (3.5-5.0); ALKALINE PHOSPHATASE 70 U/L (38-126); ANION GAP 11.6 MEQ/L (5-15); BLOOD UREA NITROGEN 16 mg/dL (9-20); CHLORIDE 100 mmol/L (98-107); Calcium 8.6 mg/dL (8.4-10.2); Carbon Dioxide 29 mmol/L (22-30); Creatinine 1 0.96 mg/dL (0.66-1.25); Glucose 110 mg/dL (74-106); LIPASE 216 U/L (23-300); Potassium 3.7 mmol/L (3.5-5.1); SGOT/AST 16 U/L (17-59); SGPT/ALT 23 U/L (0-50); SODIUM 137 mmol/L (137-145); Total Protein 6.6 g/dL (6.3-8.2)
[2018-05-13 09:31] LABS: Lymphocytes 18 % (24-44); Monocyte 6 % (0.0-12.0); Neutrophils 76 % (36.-66.); Total Cells Counted 100
[2018-05-13 09:32] LABS: Platelet Estimate NORMAL (NORMAL)
[2018-05-13] MEDS ORDERED: Hydromorphone 1 mg/ml Ampule IV ONE (09:35)
[2018-05-13] MEDS ORDERED: Hydromorphone 1 mg/ml Ampule ONE (09:37)
--- NOTE | 2018-05-13 09:38 | XRAY ---
Indication: Abdominal and genital pain. Status post nasal surgery. Comparison: June 28, 2017. Portable chest remains slightly underinflated and clear. Heart and mediastinal structures within normal limits. Bony thorax intact again with mild osteopenia and degenerative changes. Impression: Stable nonacute chest with chronic features.
[2018-05-13 10:13] LABS: Appearance CLEAR (CLEAR); Bilirubin NEGATIVE (NEGATIVE); Blood SMALL Ery/ul (0-5); Glucose NEGATIVE (NEGATIVE); Ketones NEGATIVE (NEGATIVE); Leukocyte Esterase TRACE (NEGATIVE); Nitrite NEGATIVE (NEGATIVE); Protein,Urine Dip NEGATIVE (Negative); Specific Gravity 1.014 (1.005-1.025); Urobilinogen 2 mg/dL (0-1)
[2018-05-13] MEDS ORDERED: Sodium Chloride 0.9% 1000 ML 1,000 ML IV SCH (10:15)
[2018-05-13] MEDS ORDERED: DUONEB 0.5-3 MG/3 ml Neb IH ONE ×2 (10:16→10:25)
--- NOTE | 2018-05-13 11:59 | XRAY ---
Indication: Lower abdomen/genital pain. Multiple contiguous axial images obtained through the abdomen and pelvis without contrast as ordered. Comparison: None Lung bases demonstrates moderate bibasilar dependent atelectasis and small left base calcified granuloma. Heart is not enlarged. Noncontrasted stomach and bowel loops appear nonobstructed. Minimal sigmoid diverticulosis. Previous cholecystectomy. [place] catheter empties the urinary bladder. No free fluid/air. Tiny calcified splenic granulomas and enlarged prostate gland. Remaining liver, pancreas, spleen, adrenal glands, kidneys, and ureters appear unremarkable for noncontrast exam. Mild aortoiliac calcifications without AAA. Osseous structures intact with small L1 Schmorl node. Small fatty right inguinal hernia. Impression: 1. Small fatty right inguinal hernia, sigmoid diverticulosis, enlarged prostate gland, evidence for old granulomatous disease, and Tirado catheter in situ. 2. Remaining CT abdomen/pelvis without contrast exam is negative. CT DI 21.94
[2018-05-13 12:54] VITALS: BP 122/66; PULSE 76; O2SAT 96
== END 2018-05-13 13:23 | disposition home or self-care (01) ==
LOC: ED 08:40
DX: R33.9 Retention of urine, unspecified (principal); I25.10 Atherosclerotic heart disease of native coronary artery without angina pectoris; E78.00 Pure hypercholesterolemia, unspecified; I10 Essential (primary) hypertension; J44.9 Chronic obstructive pulmonary disease, unspecified; M19.90 Unspecified osteoarthritis, unspecified site; K21.9 Gastro-esophageal reflux disease without esophagitis; R10.30 Lower abdominal pain, unspecified; Z79.899 Other long term (current) drug therapy
CPT/HCPCS: 36000; 36415; 51702; 71045; 74176; 80053; 81001; 83605; 83690; 84484; 85025; 85610; 87077; 87086; 87186; 93005; 94150; 94640; 96360; 96361; 96374; 96375; 99285; J1170; J2270; J2405; A9270-GY

== ENCOUNTER 2018-06-19 11:04 | Emergency (ER) | payer MEDICARE ==
[2018-06-19] MEDS ORDERED: XYLOCAINE 2% Uro-Jet ONE (11:14)
[2018-06-19] MEDS ORDERED: XYLOCAINE 2% Uro-Jet TOP ONE (11:26)
--- NOTE | 2018-06-19 11:32 | ERPHSYRPT ---
- History of Present Illness Time Seen by Provider: 06/19/18 11:27 Source: patient, family () Exam Limitations: no limitations Patient Subjective Stated Complaint: states had bell anchored last week by dr. gaytan for prostate trouble. woke up today and catheter is not draining. states is scheduled for surgery next week on prostate Triage Nursing Assessment: ambulated to room per self. guarding perineal area. skin w/d, color normal, resp easy. f/c in place with only small amt urine noted in bag. urine is dark yellow and cloudy. Physician History: The patient is a 68-year-old male with his complaining that his Bell catheter was not draining through the night. His urologist placed a Bell catheter last week for urinary retention due to prostate problems. He denies fever or chills. His past medical history is significant for COPD, BPH, high cholesterol, hypertension, hypothyroidism and CAD. Timing/Duration: today, sudden Activites at Onset: none Quality: fullness Onset Location: suprapubic Pain Radiation: none Severity of Pain-Max: mild Severity of Pain-Current: mild Modifying Factors: Improves With: nothing Associated Symptoms: other (urinary retention) Prior abdominal problems: none Sexual intercourse history: non-contributory Allergies/Adverse Reactions: levofloxacin Allergy (Intermediate, Verified 06/19/18 11:21) Hives Home Medications: Aspirin 81 mg PO DAILY 08/02/16 [History] Atenolol 25 mg PO QPM 08/02/16 [History] Cholecalciferol (Vitamin D3) [Vitamin D3] 1,000 unit PO DAILY 08/02/16 [History] Lovastatin 10 mg PO HS 08/02/16 [History] Clopidogrel Bisulfate 75 mg [PLAVIX 75 MG Tablet] 75 mg PO DAILY 09/29/16 [History] Dronedarone Hydrochloride 400* [Multaq 400 MG] 400 mg PO BID 09/29/16 [ History] Levothyroxine Sodium 50 Mcg [Synthroid 50 Mcg] 75 mcg PO DAILY 09/29/16 [ History] Tamsulosin HCl 0.4 mg [Flomax 0.4 MG] 0.4 mg PO HS 09/29/16 [History] Loratadine 10 mg [Claritin 10 mg] 10 mg PO DAILY 12/17/16 [History] raNITIdine HCl [Ranitidine HCl] 150 mg PO DAILY 12/17/16 [History] Fluticasone/Vilanterol [Breo Ellipta 200-25 Mcg INH] 1 each IH DAILY 03/10/17 [ History] Budesonide/Formoterol Fumarate [Symbicort 80-4.5 Mcg Inhaler] 6.9 gm IH BID [History] Piroxicam [Feldene] 10 mg PO DAILY 05/13/18 [History] Hx Tetanus, Diphtheria Vaccination/Date Given: Yes Hx Influenza Vaccination/Date Given: Yes Hx Pneumococcal Vaccination/Date Given: Yes - Past Medical History Pertinent Past Medical History: Yes Neurological History: No Pertinent History ENT History: Cataracts Cardiac History: Angina, Coronary Artery Disease, High Cholesterol, Hypertension Respiratory History: COPD, Pneumonia Endocrine Medical History: No Pertinent History Musculoskeletal History: Arthritis GI Medical History: GERD, Hemorrhoids History: No Pertinent History Psycho-Social History: No Pertinent History Male Reproductive Disorders: Prostate Problems - Past Surgical History Past Surgical History: Yes Neuro Surgical History: No Pertinent History Cardiac: Cardiac Catheterization, Cardiac Stent, Other Respiratory: No Pertinent History Gastrointestinal: Cholecystectomy Genitourinary: No Pertinent History Musculoskeletal: No Pertinent History Male Surgical History: No Pertinent History Other Surgical History: heart cath with 2 stents aug 2016. Apr 2016 pt had biopsy of mediastinum lymphnodes - Social History Smoking Status: Never smoker Exposure to second hand smoke: No (past) Alcohol Use: None Drug Use: none Patient Lives Alone: No Significant Family History: no pertinent family hx - Review of Systems Constitutional: No Fever, No Chills Eyes: No Symptoms Ears, Nose, & Throat: No Symptoms Respiratory: No Cough, No Dyspnea Cardiac: No Chest Pain, No Edema, No Syncope Abdominal/Gastrointestinal: No Abdominal Pain, No Nausea, No Vomiting, No Diarrhea Genitourinary Symptoms: Urinary Retention Musculoskeletal: No Back Pain, No Neck Pain Skin: No Rash Neurological: No Dizziness, No Focal Weakness, No Sensory Changes Psychological: No Symptoms Endocrine: No Symptoms Hematologic/Lymphatic: No Symptoms Immunological/Allergic: No Symptoms All Other Systems: Reviewed and Negative - Nursing Vital Signs Nursing Vital Signs: Initial Vital Signs Temperature 97.6 F 06/19/18 11:14 Pulse Rate 63 06/19/18 11:14 Respiratory Rate 16 06/19/18 11:14 Blood Pressure 133/74 06/19/18 11:14 O2 Sat by Pulse Oximetry 94 L 06/19/18 11:14 Pain Scale Pain Intensity 8 - Physical Exam General Appearance: no apparent distress, alert Eye Exam: PERRL/EOMI Ears, Nose, Throat Exam: pharynx normal, moist mucous membranes Neck Exam: normal inspection, supple Respiratory Exam: normal breath sounds, lungs clear Cardiovascular Exam: regular rate/rhythm, No edema Gastrointestinal/Abdomen Exam: soft, No tenderness Rectal Exam: not done Male Genital Exam: normal genitalia Back Exam: normal inspection, No CVA tenderness Extremity Exam: normal inspection, normal range of motion, No pedal edema Neurologic Exam: alert, oriented x 3, cooperative, sensation nml, No motor deficits Skin Exam: normal color, warm, dry, No rash SpO2 Interpretation: normal SpO2: 94 Oxygen Delivery: Room Air Ordered Tests: Active Orders 24 hr Category Date Time Status Catheter-[place] Bell STAT Care 06/19/18 11:23 Active CULTURE,URINE Stat Lab 06/19/18 11:35 Received UA W/RFX UR CULTURE Stat Lab 06/19/18 11:35 Completed Medication Summary Discontinued Medications Generic Name Dose Route Start Last Admin Trade Name Freq PRN Reason Stop Dose Admin Lidocaine HCl Confirm 06/19/18 11:14 Xylocaine 2% Uro-Jet Administered 06/19/18 11:15 Dose 200 mg .ROUTE .STK-MED ONE Lidocaine HCl 200 mg 06/19/18 11:26 06/19/18 11:27 Xylocaine 2% Uro-Jet TOP 06/19/18 11:27 200 mg STAT ONE Administration Lab/Rad Data: Laboratory Results 06/19/18 Range/Units 11:35 Urine Color YELLOW (YELLOW) Urine Appearance SLIGHTLY CLOUDY (CLEAR) Urine pH 5.0 (5-6) Ur Specific [place] 1.018 (1.005-1.025) Urine Protein 30 (Negative) Urine Ketones NEGATIVE (NEGATIVE) Urine Blood LARGE (0-5) Giovanni/ul Urine Nitrite NEGATIVE (NEGATIVE) Urine Bilirubin NEGATIVE (NEGATIVE) Urine Urobilinogen NEGATIVE (0-1) mg/dL Ur Leukocyte Esterase TRACE (NEGATIVE) Urine WBC (Auto) 26-50 (0-5) /HPF Urine RBC (Auto) >101 (0-2) /HPF U Epithel Cells (Auto) NONE (FEW) /HPF Urine Bacteria (Auto) MODERATE (NEGATIVE) /HPF Urine Mucus (Auto) SLIGHT (NEGATIVE) /HPF Urine Yeast ([place]) Rare (NEGATIVE) /HPF Urine Culture Reflexed YES (NO) Urine Glucose NEGATIVE (NEGATIVE) mg/dL - Progress Progress: improved Progress Note: 06/19/18 11:33 bell cath replaced and draining well. Counseled pt/family regarding: lab results, diagnosis, need for follow-up - Departure Time of Disposition: 12:14 Departure Disposition: Home Clinical Impression: UTI (urinary tract infection), Bell catheter problem Condition: Stable Critical Care Time: No Referrals: NATALEE POTTS NP [Primary Care Provider] - Additional Instructions: You have a UTI that was obstructing your Bell catheter. Your Bell catheter was changed in the ER. You were given Rocephin 1 g by IM in the ER. Take Keflex 500 mg 4 times a day for 7 days. Follow up with either your primary medical doctor or your urologist early next week. Prescriptions: Cephalexin Mh 500 mg [Keflex 500 mg] 1 cap PO QID #28 capsule
[2018-06-19 11:58] LABS: Appearance SLIGHTLY CLOUDY (CLEAR); Bilirubin NEGATIVE (NEGATIVE); Blood LARGE Ery/ul (0-5); Glucose NEGATIVE (NEGATIVE); Ketones NEGATIVE (NEGATIVE); Leukocyte Esterase TRACE (NEGATIVE); Nitrite NEGATIVE (NEGATIVE); Protein,Urine Dip 30 (Negative); Specific Gravity 1.018 (1.005-1.025); Urobilinogen NEGATIVE mg/dL (0-1)
[2018-06-19] MEDS ORDERED: Rocephin 1000 MG INJ IM ONE (12:14)
[2018-06-19] MEDS ORDERED: Rocephin 1000 MG INJ ONE (12:18)
[2018-06-19] MEDS ORDERED: XYLOCAINE 1% HCL 20 ML MDV ONE (12:18)
[2018-06-19 12:41] VITALS: BP 114/67; PULSE 62; O2SAT 95
== END 2018-06-19 12:43 | disposition home or self-care (01) ==
LOC: ED 11:04
DX: N39.0 Urinary tract infection, site not specified (principal); Y84.6 Urinary catheterization as the cause of abnormal reaction of the patient, or of later complication, without mention of misadventure at the time of the procedure; Z79.899 Other long term (current) drug therapy; Z79.01 Long term (current) use of anticoagulants
CPT/HCPCS: 51702; 81001; 87086; 96372; 99284; J0696

== ENCOUNTER 2018-07-20 10:05 | Emergency (ER) | payer MEDICARE ==
[2018-07-20] MEDS ORDERED: Sodium Chloride 0.9% 1000 ML 1,000 ML IV STA (11:19)
[2018-07-20] MEDS ORDERED: Zofran 4 MG/2 ML VIAL IV ONE (11:19)
--- NOTE | 2018-07-20 11:19 | ERPHSYRPT ---
- History of Present Illness Time Seen by Provider: 07/20/18 11:15 Source: patient, family Exam Limitations: no limitations Patient Subjective Stated Complaint: pt here for stuffy nose, sore throat, vomiting x 4 today. loose stools x2, was seen at [facility] yesterday and was given a rx, he states he is not feeling better Triage Nursing Assessment: pt alert, has stuffy nose, resp easy, skin w/d/p Physician History: The patient is a 68-year-old male with his family complaining of a sore throat, cough, nausea, vomiting, and diarrhea that began yesterday morning. He went to [facility] yesterday and was given doxycycline 100 mg 3 times a day. At times he has chills. "A few weeks ago" he had surgery on his prostate and has been urinating fine now. His past medical history is significant for COPD, HTN, CAD, cardiac stents, tonsilectomy, and cholecystectomy. Timing/Duration: yesterday Severity: moderate Modifying Factors: Improves With: nothing Associated Symptoms: nausea, vomiting, cough, other (diarrhea), No abdominal pain, No shortness of breath Allergies/Adverse Reactions: levofloxacin Allergy (Intermediate, Verified 07/20/18 10:17) Hives Home Medications: Aspirin 81 mg PO DAILY 08/02/16 [History] Atenolol 25 mg PO QPM 08/02/16 [History] Cholecalciferol (Vitamin D3) [Vitamin D3] 1,000 unit PO DAILY 08/02/16 [History] Lovastatin 10 mg PO HS 08/02/16 [History] Clopidogrel Bisulfate 75 mg [PLAVIX 75 MG Tablet] 75 mg PO DAILY 09/29/16 [History] Dronedarone Hydrochloride 400* [Multaq 400 MG] 400 mg PO BID 09/29/16 [ History] Levothyroxine Sodium 50 Mcg [Synthroid 50 Mcg] 75 mcg PO DAILY 09/29/16 [ History] Tamsulosin HCl 0.4 mg [Flomax 0.4 MG] 0.4 mg PO HS 09/29/16 [History] Loratadine 10 mg [Claritin 10 mg] 10 mg PO DAILY 12/17/16 [History] raNITIdine HCl [Ranitidine HCl] 150 mg PO DAILY 12/17/16 [History] Fluticasone/Vilanterol [Breo Ellipta 200-25 Mcg INH] 1 each IH DAILY 03/10/17 [ History] Budesonide/Formoterol Fumarate [Symbicort 80-4.5 Mcg Inhaler] 6.9 gm IH BID [History] Piroxicam [Feldene] 10 mg PO DAILY 05/13/18 [History] Doxycycline Hyclate 100 mg [Vibramycin 100 MG] 100 mg DAILY 07/20/18 [ History] Hx Tetanus, Diphtheria Vaccination/Date Given: Yes Hx Influenza Vaccination/Date Given: Yes Hx Pneumococcal Vaccination/Date Given: Yes (2016) - Review of Systems Constitutional: Chills Eyes: No Symptoms Ears, Nose, & Throat: Throat Pain Respiratory: Cough Cardiac: No Chest Pain, No Edema, No Syncope Abdominal/Gastrointestinal: Nausea, Vomiting, Diarrhea, No Abdominal Pain Genitourinary Symptoms: No Dysuria Musculoskeletal: No Back Pain, No Neck Pain Skin: No Rash Neurological: No Dizziness, No Focal Weakness, No Sensory Changes Psychological: No Symptoms Endocrine: No Symptoms Hematologic/Lymphatic: No Symptoms Immunological/Allergic: No Symptoms All Other Systems: Reviewed and Negative - Past Medical History Pertinent Past Medical History: Yes Neurological History: No Pertinent History ENT History: Cataracts Cardiac History: Angina, Coronary Artery Disease, High Cholesterol, Hypertension Respiratory History: COPD, Pneumonia Endocrine Medical History: No Pertinent History Musculoskeletal History: Arthritis GI Medical History: GERD, Hemorrhoids History: No Pertinent History Psycho-Social History: No Pertinent History Male Reproductive Disorders: Prostate Problems - Past Surgical History Past Surgical History: Yes Neuro Surgical History: No Pertinent History Cardiac: Cardiac Catheterization, Cardiac Stent, Other Respiratory: No Pertinent History Gastrointestinal: Cholecystectomy Genitourinary: No Pertinent History Musculoskeletal: No Pertinent History Male Surgical History: No Pertinent History Other Surgical History: heart cath with 2 stents aug 2016. Apr 2016 pt had biopsy of mediastinum lymphnodes - Social History Smoking Status: Never smoker Exposure to second hand smoke: No Alcohol Use: None Drug Use: none Patient Lives Alone: No Significant Family History: no pertinent family hx - Nursing Vital Signs Nursing Vital Signs: Initial Vital Signs Temperature 98.0 F 07/20/18 10:11 Pulse Rate 75 07/20/18 10:11 Respiratory Rate 18 07/20/18 10:11 Blood Pressure 121/70 07/20/18 10:11 O2 Sat by Pulse Oximetry 96 07/20/18 10:11 Pain Scale Pain Intensity 4 - Physical Exam General Appearance: mild distress Eye Exam: PERRL/EOMI, eyes nml inspection Ears, Nose, Throat Exam: normal ENT inspection, TMs normal, pharynx normal, moist mucous membranes, No pharyngeal erythema Neck Exam: normal inspection, non-tender, supple, full range of motion Respiratory Exam: normal breath sounds, lungs clear, No respiratory distress Cardiovascular Exam: regular rate/rhythm, normal heart sounds, normal peripheral pulses Gastrointestinal/Abdomen Exam: soft, normal bowel sounds, No tenderness, No mass Rectal Exam: not done Back Exam: normal inspection, normal range of motion, No CVA tenderness, No vertebral tenderness Extremity Exam: normal inspection, normal range of motion, pelvis stable Neurologic Exam: alert, oriented x 3, cooperative, normal mood/affect, nml cerebellar function, nml station & gait, sensation nml, No motor deficits Skin Exam: normal color, warm, dry, No rash Lymphatic Exam: No adenopathy SpO2 Interpretation: normal SpO2: 96 Oxygen Delivery: Room Air - Course EKG Interpreted by Me: RATE, Left [place] Deviation, NORMAL INTERVALS, NORMAL QRS, NORMAL ST-T, Other (no change comp EKG from 05/13/18.) - Radiology Exams Chest X-ray Interpretation: Interpreted by me, Infiltrates (bibasilar atelecstasis/ infiltrates, comp 1V chest 05/13/18.) Ordered Tests: Active Orders 24 hr Category Date Time Status Clean Catch Urine Specimen STAT Care 07/20/18 11:19 Active EKG-ER Only STAT Care 07/20/18 11:19 Active IV Insertion STAT Care 07/20/18 11:19 Active CHEST 2 VIEWS (PA AND LAT) Stat Exams 07/20/18 11:20 Taken CBC W DIFF Stat Lab 07/20/18 11:42 Completed CMP Stat Lab 07/20/18 11:42 Completed LIPASE Stat Lab 07/20/18 11:42 Completed Lactic Acid Stat Lab 07/20/18 11:35 Completed TROPONIN Q3H Lab 07/20/18 11:42 Completed TROPONIN Q3H Lab 07/20/18 14:30 Ordered TROPONIN Q3H Lab 07/20/18 17:30 Ordered TROPONIN Q3H Lab 07/20/18 20:30 Ordered TROPONIN Q3H Lab 07/20/18 23:30 Ordered UA W/RFX UR CULTURE Stat Lab 07/20/18 13:36 Ordered Medication Summary Discontinued Medications Generic Name Dose Route Start Last Admin Trade Name Tay PRN Reason Stop Dose Admin Sodium Chloride 1,000 mls @ 999 mls/hr 07/20/18 11:19 07/20/18 13:12 Sodium Chloride 0.9% 1000 Ml IV 07/20/18 12:19 Infused .Q1H1M STA Infusion Sodium Chloride Confirm 07/20/18 11:25 Sodium Chloride 0.9% 1000 Ml Administered 07/20/18 11:26 Dose 1,000 mls @ ud .ROUTE .STK-MED ONE Ceftriaxone Sodium/Dextrose 1 g in 50 mls @ 100 mls/hr 07/20/18 12:53 13:02 Rocephin 1 Gm-D5w 50 Ml Bag IV 07/20/18 13:22 100 mls/hr STAT STA 100 mls/hr Administration Ceftriaxone Sodium/Dextrose Confirm 07/20/18 12:56 Rocephin 1 Gm-D5w 50 Ml Bag Administered 07/20/18 12:57 Dose 1 g in 50 mls @ ud IV .STK-MED ONE Methylprednisolone Sodium Succinate 125 mg 07/20/18 12:54 07/20/18 13:03 Solu-Medrol 125 Mg IV 07/20/18 12:55 125 mg STAT ONE Administration Methylprednisolone Sodium Succinate Confirm 07/20/18 12:56 Solu-Medrol 125 Mg Administered 07/20/18 12:57 Dose 125 mg .ROUTE .STK-MED ONE Ondansetron HCl 4 mg 07/20/18 11:19 07/20/18 11:31 Zofran 4 Mg/2 Ml Vial IV 07/20/18 11:20 4 mg STAT ONE Administration Ondansetron HCl Confirm 07/20/18 11:25 Zofran 4 Mg/2 Ml Vial Administered 07/20/18 11:26 Dose 4 mg .ROUTE .STK-MED ONE Potassium Chloride 20 meq 07/20/18 12:43 07/20/18 12:53 Klor Con 10 Meq PO 07/20/18 12:44 20 meq STAT ONE Administration Potassium Chloride Confirm 07/20/18 12:52 Klor Con 10 Meq Administered 07/20/18 12:53 Dose 20 meq PO .STK-MED ONE Lab/Rad Data: Laboratory Result Diagrams 07/20/18 11:42 07/20/18 11:42 Laboratory Results 07/20/18 07/20/18 07/20/18 Range/Units 11:42 11:42 11:42 WBC (4.0-10.5) K/mm3 RBC (4.1-5.6) M/mm3 Hgb (12.5-18.0) gm/dl Hct (42-50) % MCV (78-100) fl MCH (26-32) pg MCHC (32-36) g/dl RDW (11.5-14.0) % Plt Count (150-450) K/mm3 MPV (6-9.5) fl Gran % (36.0-66.0) % Eos # (Auto) (0-0.5) Absolute Lymphs (auto) (1.0-4.6) Absolute Monos (auto) (0.0-1.3) Lymphocytes % (24.0-44.0) % Monocytes % (0.0-12.0) % Eosinophils % (0.00-5.0) % Basophils % (0.0-0.4) % Absolute Granulocytes (1.4-6.9) Basophils # (0-0.4) Sodium 143 (137-145) mmol/L Potassium 3.3 L (3.5-5.1) mmol/L Chloride 104 (98-107) mmol/L Carbon Dioxide 28 (22-30) mmol/L Anion Gap 13.9 (5-15) MEQ/L BUN 10 (9-20) mg/dL Creatinine 1.03 (0.66-1.25) mg/dL Estimated GFR > 60.0 ML/MIN Glucose 112 H (74-106) mg/dL Lactic Acid (0.4-2.0) Calcium 9.3 (8.4-10.2) mg/dL Total Bilirubin 2.00 H (0.2-1.3) mg/dL AST 16 L (17-59) U/L ALT 15 (0-50) U/L Alkaline Phosphatase 80 (38-126) U/L Troponin I 0.016 (0.000-0.034) ng/mL Serum Total Protein 7.7 (6.3-8.2) g/dL Albumin 4.4 (3.5-5.0) g/dL Lipase 76 (23-300) U/L Influenza Type A Ag NEGATIVE (NEGATIVE) Influenza Type B Ag NEGATIVE (NEGATIVE) RSV (PCR) POSITIVE (Negative) Group A Strep Antibody NEGATIVE (NEGATIVE) 07/20/18 07/20/18 Range/Units 11:42 11:35 WBC 10.1 (4.0-10.5) K/mm3 RBC 4.69 (4.1-5.6) M/mm3 Hgb 14.7 (12.5-18.0) gm/dl Hct 44.3 (42-50) % MCV 94.5 (78-100) fl MCH 31.3 (26-32) pg MCHC 33.2 (32-36) g/dl RDW 14.7 H (11.5-14.0) % Plt Count 200 (150-450) K/mm3 MPV 9.3 (6-9.5) fl Gran % 71.5 H (36.0-66.0) % Eos # (Auto) 0.37 (0-0.5) Absolute Lymphs (auto) 1.58 (1.0-4.6) Absolute Monos (auto) 0.90 (0.0-1.3) Lymphocytes % 15.7 L (24.0-44.0) % Monocytes % 8.9 (0.0-12.0) % Eosinophils % 3.7 (0.00-5.0) % Basophils % 0.2 (0.0-0.4) % Absolute Granulocytes 7.22 H (1.4-6.9) Basophils # 0.02 (0-0.4) Sodium (137-145) mmol/L Potassium (3.5-5.1) mmol/L Chloride (98-107) mmol/L Carbon Dioxide (22-30) mmol/L Anion Gap (5-15) MEQ/L BUN (9-20) mg/dL Creatinine (0.66-1.25) mg/dL Estimated GFR ML/MIN Glucose (74-106) mg/dL Lactic Acid 1.2 (0.4-2.0) Calcium (8.4-10.2) mg/dL Total Bilirubin (0.2-1.3) mg/dL AST (17-59) U/L ALT (0-50) U/L Alkaline Phosphatase (38-126) U/L Troponin I (0.000-0.034) ng/mL Serum Total Protein (6.3-8.2) g/dL Albumin (3.5-5.0) g/dL Lipase (23-300) U/L Influenza Type A Ag (NEGATIVE) Influenza Type B Ag (NEGATIVE) RSV (PCR) (Negative) Group A Strep Antibody (NEGATIVE) - Progress Progress: improved Counseled pt/family regarding: lab results, diagnosis, need for follow-up, rad results - Departure Time of Disposition: 14:01 Departure Disposition: Home Clinical Impression: RSV (acute bronchiolitis due to respiratory syncytial virus), Hypokalemia, Vomiting Condition: Stable Critical Care Time: No Referrals: NATALEE POTTS NP [Primary Care Provider] - Additional Instructions: You have RSV (respiratory syncytial virus), low serum potassium, vomiting, and diarrhea. You were given potassium 20 mEq orally, Solu-Medrol 125 mg, Zofran 4 mg, Rocephin 1 g, and fluids by IV in the ER. Continue to take doxycycline 100 mg 2 times a day as previously prescribed. Take Zofran 4 mg ODT every 6 hours as needed for nausea and vomiting. Stay well hydrated. Follow-up with your primary medical doctor in one to 2 days.
[2018-07-20] MEDS ORDERED: Sodium Chloride 0.9% 1000 ML 1,000 ML ONE (11:25)
[2018-07-20] MEDS ORDERED: Zofran 4 MG/2 ML VIAL ONE (11:25)
[2018-07-20 11:56] LABS: BASOPHIL % 0.2 % (0.0-0.4); Basophil (Absolute #) 0.02 (0-0.4); Eosinophil % 3.7 % (0.00-5.0); Eosinophil (Absolute #) 0.37 (0-0.5); Granulocyte Absolute (ANC) 7.22 (1.4-6.9); Granulocytes % 71.5 % (36.0-66.0); Hematocrit 44.3 % (42-50); Hemoglobin 14.7 gm/dl (12.5-18.0); Lymphocyte (Absolute #) 1.58 (1.0-4.6); Lymphocytes % 15.7 % (24.0-44.0); Mean Cell Volume 94.5 fl (78-100); Mean Corpuscular Hemoglobin 31.3 pg (26-32); Mean Corpuscular Hgb Concent. 33.2 g/dl (32-36); Mean Platelet Volume 9.3 fl (6-9.5); Monocytes % 8.9 % (0.0-12.0); Platelet Count 200 K/mm3 (150-450); Red Blood Count 4.69 M/mm3 (4.1-5.6); Red Cell Distribution Width 14.7 % (11.5-14.0); White Blood Count 10.1 K/mm3 (4.0-10.5)
[2018-07-20 12:10] LABS: ALBUMIN 4.4 g/dL (3.5-5.0); ALKALINE PHOSPHATASE 80 U/L (38-126); ANION GAP 13.9 MEQ/L (5-15); BLOOD UREA NITROGEN 10 mg/dL (9-20); CHLORIDE 104 mmol/L (98-107); Calcium 9.3 mg/dL (8.4-10.2); Carbon Dioxide 28 mmol/L (22-30); Creatinine 1 1.03 mg/dL (0.66-1.25); Glucose 112 mg/dL (74-106); LIPASE 76 U/L (23-300); Potassium 3.3 mmol/L (3.5-5.1); SGOT/AST 16 U/L (17-59); SGPT/ALT 15 U/L (0-50); SODIUM 143 mmol/L (137-145); Total Protein 7.7 g/dL (6.3-8.2)
[2018-07-20 12:17] LABS: INFLUENZA A NEGATIVE (NEGATIVE); INFLUENZA B NEGATIVE (NEGATIVE)
[2018-07-20 12:18] LABS: RESPIRATORY SYNCTIAL VIRUS POSITIVE (Negative)
[2018-07-20] MEDS ORDERED: Klor Con 10 MEQ PO ONE ×2 (12:43→12:52)
[2018-07-20 12:51] VITALS: PULSE 71
[2018-07-20] MEDS ORDERED: ROCEPHIN 1 Gm-D5w 50 ml Bag** 1 G/50 ML IVPB IV STA (12:53)
[2018-07-20] MEDS ORDERED: solu-MEDROL 125 MG IV ONE (12:54)
[2018-07-20] MEDS ORDERED: ROCEPHIN 1 Gm-D5w 50 ml Bag** 1 G/50 ML IVPB IV ONE (12:56)
[2018-07-20] MEDS ORDERED: solu-MEDROL 125 MG ONE (12:56)
[2018-07-20] MEDS ORDERED: ZOFRAN ODT 4 MG PO ONE (14:04)
[2018-07-20] MEDS ORDERED: ZOFRAN ODT 4 MG ONE (14:13)
[2018-07-20 14:22] VITALS: BP 140/65; O2SAT 93
[2018-07-20 15:12] LABS: Appearance CLOUDY (CLEAR); Bilirubin NEGATIVE (NEGATIVE); Blood LARGE Ery/ul (0-5); Glucose NEGATIVE (NEGATIVE); Ketones TRACE (NEGATIVE); Leukocyte Esterase MODERATE (NEGATIVE); Nitrite NEGATIVE (NEGATIVE); Protein,Urine Dip 100 (Negative); Specific Gravity 1.023 (1.005-1.025); Urobilinogen NEGATIVE mg/dL (0-1)
--- NOTE | 2018-07-20 20:50 | XRAY ---
Indication: Sore throat, vomiting, and diarrhea. Comparison: May 13, 2018. PA/lateral chest hyperinflated again with minimal lingular atelectasis/scarring. Heart is not enlarged. Bony thorax intact again with mild osteopenia and degenerative changes. No new/acute findings. Impression: Nonacute hyperinflated chest with chronic features.
== END 2018-07-20 14:27 | disposition home or self-care (01) ==
LOC: ED 10:05
DX: J21.0 Acute bronchiolitis due to respiratory syncytial virus (principal); E87.6 Hypokalemia; R11.2 Nausea with vomiting, unspecified; R19.7 Diarrhea, unspecified; Z79.01 Long term (current) use of anticoagulants; Z79.899 Other long term (current) drug therapy
CPT/HCPCS: 36415; 71046; 80053; 81001; 83605; 83690; 84484; 85025; 87077; 87086; 87186; 87631; 87651; 93005; 96360; 96374; 96375; 99284; J0696; J2405; J2930; Q0162; A9270-GY

== ENCOUNTER 2018-11-23 18:01 | Emergency (ER) | payer MEDICARE ==
[2018-11-23 19:15] LABS: Hematocrit 45.1 % (42-50); Hemoglobin 15.2 gm/dl (12.5-18.0); Mean Cell Volume 95.1 fl (78-100); Mean Corpuscular Hemoglobin 32.1 pg (26-32); Mean Corpuscular Hgb Concent. 33.7 g/dl (32-36); Mean Platelet Volume 9.6 fl (6-9.5); Platelet Count 57 K/mm3 (150-450); Red Blood Count 4.74 M/mm3 (4.1-5.6); White Blood Count 4.4 K/mm3 (4.0-10.5)
[2018-11-23 19:27] LABS: ALBUMIN 3.5 g/dL (3.5-5.0); ALKALINE PHOSPHATASE 59 U/L (38-126); BLOOD UREA NITROGEN 18 mg/dL (9-20); CHLORIDE 104 mmol/L (98-107); Calcium 8.5 mg/dL (8.4-10.2); Carbon Dioxide 22 mmol/L (22-30); Creatinine 1 1.01 mg/dL (0.66-1.25); Glucose 111 mg/dL (74-106); Potassium 4.1 mmol/L (3.5-5.1); SGOT/AST 72 U/L (17-59); SGPT/ALT 94 U/L (0-50); SODIUM 136 mmol/L (137-145); Total Protein 6.2 g/dL (6.3-8.2)
[2018-11-23 20:09] LABS: ATYPICAL LYMPHS 1 %; BAND 5 % (0.0-2.0); Basophil 1 % (0.0-1.0); Basophilic Stippling RARE; Lymphocytes 12 % (24-44); Monocyte 5 % (0.0-12.0); Neutrophils 76 % (36.-66.); Platelet Estimate DECREASED (NORMAL); Total Cells Counted 100
[2018-11-23 20:10] LABS: ANISOCYTOSIS 1+; Hypochromia RARE
[2018-11-23 20:14] LABS: Appearance SLIGHTLY CLOUDY (CLEAR); Bacteria FEW /HPF (NEGATIVE); Bilirubin NEGATIVE (NEGATIVE); Blood NEGATIVE Ery/ul (0-5); Epithelial Cells RARE /HPF (FEW); Glucose NEGATIVE (NEGATIVE); Ketones TRACE (NEGATIVE); Leukocyte Esterase NEGATIVE (NEGATIVE); Mucus SLIGHT /HPF (NEGATIVE); Nitrite NEGATIVE (NEGATIVE); Protein,Urine Dip 100 (Negative); Specific Gravity 1.033 (1.005-1.025); Urobilinogen NEGATIVE mg/dL (0-1)
[2018-11-23 20:18] VITALS: BP 101/58; PULSE 68; O2SAT 93
--- NOTE | 2018-11-23 20:37 | ERPHSYRPT ---
- History of Present Illness Source: patient Exam Limitations: no limitations Patient Subjective Stated Complaint: multitude of non specific concerns. staes generalized pain from head to legs. pain in his left ear that he is being treated for.. will see ENT November 29. [facility]. astates the pain from head to toes is his biggest concern. multiple areas of bruising due to blood thinner. denies fallin.g has had episodes of sweating. denies fever. states been weak x 4 days. just feels sick. Triage Nursing Assessment: see above Physician History: Pt is a 68 y/o male that presented to the ED with extended family with multiple complains. Pt states, he is in pain all over. He states, has some sweats. No fever or chills. No SOB or cough. He has ENT concerns that are treated by ENT specialist, and h/o urinary retention and BPH, that were treated with surgery, and now pt is without bell. Pt states, having pain, and Tylenol did not help. Timing/Duration: today Severity: mild Modifying Factors: Improves With: medication Associated Symptoms: denies symptoms Allergies/Adverse Reactions: levofloxacin Allergy (Intermediate, Verified 11/23/18 18:33) Hives Home Medications: Aspirin 81 mg PO DAILY 08/02/16 [History] Atenolol 25 mg PO QPM 08/02/16 [History] Cholecalciferol (Vitamin D3) [Vitamin D3] 1,000 unit PO DAILY 08/02/16 [History] Lovastatin 10 mg PO HS 08/02/16 [History] Clopidogrel Bisulfate 75 mg [PLAVIX 75 MG Tablet] 75 mg PO DAILY 09/29/16 [History] Dronedarone Hydrochloride 400* [Multaq 400 MG] 400 mg PO BID 09/29/16 [ History] Levothyroxine Sodium 50 Mcg [Synthroid 50 Mcg] 75 mcg PO DAILY 09/29/16 [ History] Tamsulosin HCl 0.4 mg [Flomax 0.4 MG] 0.4 mg PO HS 09/29/16 [History] Loratadine 10 mg [Claritin 10 mg] 10 mg PO DAILY 12/17/16 [History] raNITIdine HCl [Ranitidine HCl] 150 mg PO DAILY 12/17/16 [History] Fluticasone/Vilanterol [Breo Ellipta 200-25 Mcg INH] 1 each IH DAILY 03/10/17 [ History] Budesonide/Formoterol Fumarate [Symbicort 80-4.5 Mcg Inhaler] 6.9 gm IH BID [History] Piroxicam [Feldene] 10 mg PO DAILY 05/13/18 [History] Doxycycline Hyclate 100 mg [Vibramycin 100 MG] 100 mg DAILY 07/20/18 [ History] Hx Tetanus, Diphtheria Vaccination/Date Given: Yes Hx Influenza Vaccination/Date Given: Yes Hx Pneumococcal Vaccination/Date Given: Yes (2016) - Review of Systems Constitutional: Other (Diffuse pain), No Fever, No Chills Eyes: No Symptoms Ears, Nose, & Throat: No Symptoms Respiratory: No Cough, No Dyspnea Cardiac: No Chest Pain, No Edema, No Syncope Abdominal/Gastrointestinal: No Abdominal Pain, No Nausea, No Vomiting, No Diarrhea Genitourinary Symptoms: No Dysuria Musculoskeletal: Arthralgias, Myalgias Skin: No Rash Neurological: No Dizziness, No Focal Weakness, No Sensory Changes - Past Medical History Pertinent Past Medical History: Yes Neurological History: No Pertinent History ENT History: Cataracts Cardiac History: Angina, Coronary Artery Disease, High Cholesterol, Hypertension Respiratory History: COPD, Pneumonia Endocrine Medical History: No Pertinent History Musculoskeletal History: Arthritis GI Medical History: GERD, Hemorrhoids History: No Pertinent History Psycho-Social History: No Pertinent History Male Reproductive Disorders: Prostate Problems - Past Surgical History Past Surgical History: Yes Neuro Surgical History: No Pertinent History Cardiac: Cardiac Catheterization, Cardiac Stent, Other Respiratory: No Pertinent History Gastrointestinal: Cholecystectomy Genitourinary: No Pertinent History Musculoskeletal: No Pertinent History Male Surgical History: No Pertinent History Other Surgical History: heart cath with 2 stents aug 2016. Apr 2016 pt had biopsy of mediastinum lymphnodes - Social History Smoking Status: Never smoker Exposure to second hand smoke: No Alcohol Use: None Drug Use: none Patient Lives Alone: No Significant Family History: no pertinent family hx - Nursing Vital Signs Nursing Vital Signs: Initial Vital Signs Temperature 98.7 F 11/23/18 18:21 Pulse Rate 82 11/23/18 18:21 Respiratory Rate 18 11/23/18 18:21 Blood Pressure 130/67 11/23/18 18:21 O2 Sat by Pulse Oximetry 95 11/23/18 18:21 Pain Scale Pain Intensity [Generalized] 5 Pain Intensity 5 - Physical Exam General Appearance: no apparent distress, alert Eye Exam: PERRL/EOMI, eyes nml inspection Ears, Nose, Throat Exam: normal ENT inspection, TMs normal, pharynx normal, moist mucous membranes Neck Exam: normal inspection, non-tender, supple, full range of motion Respiratory Exam: normal breath sounds, lungs clear, No respiratory distress Cardiovascular Exam: regular rate/rhythm, normal heart sounds, normal peripheral pulses Gastrointestinal/Abdomen Exam: soft, normal bowel sounds, No tenderness, No mass Extremity Exam: normal inspection, normal range of motion, pelvis stable Neurologic Exam: alert, oriented x 3, cooperative, normal mood/affect, nml cerebellar function, nml station & gait, sensation nml, No motor deficits SpO2: 93 - Course Nursing assessment & vital signs reviewed: Yes Ordered Tests: Active Orders 24 hr Category Date Time Status CBC W DIFF Stat Lab 11/23/18 19:10 Completed CMP Stat Lab 11/23/18 19:10 Completed Lactic Acid Stat Lab 11/23/18 19:15 Completed Manual Differential NC Stat Lab 11/23/18 19:10 Completed UA W/RFX UR CULTURE Stat Lab 11/23/18 20:00 Completed Lab/Rad Data: Laboratory Result Diagrams 11/23/18 19:10 11/23/18 19:10 Laboratory Results 11/23/18 11/23/18 11/23/18 Range/Units 20:00 19:15 19:10 WBC (4.0-10.5) K/mm3 RBC (4.1-5.6) M/mm3 Hgb (12.5-18.0) gm/dl Hct (42-50) % MCV (78-100) fl MCH (26-32) pg MCHC (32-36) g/dl RDW (11.5-14.0) % Plt Count (150-450) K/mm3 MPV (6-9.5) fl Segmented Neutrophils (36.-66.) % Band Neutrophils (0.0-2.0) % Lymphocytes (Manual) (24-44) % Monocytes (Manual) (0.0-12.0) % Basophils (Manual) (0.0-1.0) % Atypical Lymphocytes % Hypochromia Platelet Estimate (NORMAL) RBC Morphology Basophilic Stippling Anisocytosis Sodium 136 L (137-145) mmol/L Potassium 4.1 (3.5-5.1) mmol/L Chloride 104 (98-107) mmol/L Carbon Dioxide 22 (22-30) mmol/L Anion Gap 14.0 (5-15) MEQ/L BUN 18 (9-20) mg/dL Creatinine 1.01 (0.66-1.25) mg/dL Estimated GFR > 60.0 ML/MIN Glucose 111 H (74-106) mg/dL Lactic Acid 1.0 (0.4-2.0) Calcium 8.5 (8.4-10.2) mg/dL Total Bilirubin 2.00 H (0.2-1.3) mg/dL AST 72 H (17-59) U/L ALT 94 H (0-50) U/L Alkaline Phosphatase 59 (38-126) U/L Serum Total Protein 6.2 L (6.3-8.2) g/dL Albumin 3.5 (3.5-5.0) g/dL Urine Color DARK YELLOW (YELLOW) Urine Appearance SLIGHTLY CLOUDY (CLEAR) Urine pH 5.0 (5-6) Ur Specific [place] 1.033 (1.005-1.025) Urine Protein 100 (Negative) Urine Ketones TRACE (NEGATIVE) Urine Blood NEGATIVE (0-5) Giovnani/ul Urine Nitrite NEGATIVE (NEGATIVE) Urine Bilirubin NEGATIVE (NEGATIVE) Urine Urobilinogen NEGATIVE (0-1) mg/dL Ur Leukocyte Esterase NEGATIVE (NEGATIVE) Urine WBC (Auto) 3-5 (0-5) /HPF Urine RBC (Auto) 6-10 (0-2) /HPF U Epithel Cells (Auto) RARE (FEW) /HPF Urine Bacteria (Auto) FEW (NEGATIVE) /HPF Urine Mucus (Auto) SLIGHT (NEGATIVE) /HPF Urine Culture Reflexed NO (NO) Urine Glucose NEGATIVE (NEGATIVE) mg/dL 11/23/18 Range/Units 19:10 WBC 4.4 (4.0-10.5) K/mm3 RBC 4.74 (4.1-5.6) M/mm3 Hgb 15.2 (12.5-18.0) gm/dl Hct 45.1 (42-50) % MCV 95.1 (78-100) fl MCH 32.1 H (26-32) pg MCHC 33.7 (32-36) g/dl RDW 15.0 H (11.5-14.0) % Plt Count 57 L (150-450) K/mm3 MPV 9.6 H (6-9.5) fl Segmented Neutrophils 76 H (36.-66.) % Band Neutrophils 5 H (0.0-2.0) % Lymphocytes (Manual) 12 L (24-44) % Monocytes (Manual) 5 (0.0-12.0) % Basophils (Manual) 1 (0.0-1.0) % Atypical Lymphocytes 1 % Hypochromia RARE Platelet Estimate DECREASED (NORMAL) RBC Morphology ABNORMAL Basophilic Stippling RARE Anisocytosis 1+ Sodium (137-145) mmol/L Potassium (3.5-5.1) mmol/L Chloride (98-107) mmol/L Carbon Dioxide (22-30) mmol/L Anion Gap (5-15) MEQ/L BUN (9-20) mg/dL Creatinine (0.66-1.25) mg/dL Estimated GFR ML/MIN Glucose (74-106) mg/dL Lactic Acid (0.4-2.0) Calcium (8.4-10.2) mg/dL Total Bilirubin (0.2-1.3) mg/dL AST (17-59) U/L ALT (0-50) U/L Alkaline Phosphatase (38-126) U/L Serum Total Protein (6.3-8.2) g/dL Albumin (3.5-5.0) g/dL Urine Color (YELLOW) Urine Appearance (CLEAR) Urine pH (5-6) Ur Specific [place] (1.005-1.025) Urine Protein (Negative) Urine Ketones (NEGATIVE) Urine Blood (0-5) Giovanni/ul Urine Nitrite (NEGATIVE) Urine Bilirubin (NEGATIVE) Urine Urobilinogen (0-1) mg/dL Ur Leukocyte Esterase (NEGATIVE) Urine WBC (Auto) (0-5) /HPF Urine RBC (Auto) (0-2) /HPF U Epithel Cells (Auto) (FEW) /HPF Urine Bacteria (Auto) (NEGATIVE) /HPF Urine Mucus (Auto) (NEGATIVE) /HPF Urine Culture Reflexed (NO) Urine Glucose (NEGATIVE) mg/dL - Progress Progress: unchanged Progress Note: 11/23/18 20:34 Pt had lab work done, and UA. No leukocytosis, no abnormality, no JOSIANE, and UA is clean. As pt's vitals are normal, and there was no abnormalities that were seen, pt is cleared for d/c. He was advised to use pain meds, per his prescribers (On Inspect his ENT and Urologist were giving him pain meds). I explained to pt and family, that only one prescriber should be giving pt prescriptions for pain meds, and he should contact them, or his PCP. Will see patient in: office Counseled pt/family regarding: need for follow-up - Departure Departure Disposition: Home Clinical Impression: Chronic pain Condition: Stable Critical Care Time: No Referrals: NATALEE POTTS NP [Primary Care Provider] - Additional Instructions: F/U with PCP ,and make sure only one prescriber is giving pt, his pain meds.
== END 2018-11-23 21:05 | disposition home or self-care (01) ==
LOC: ED 18:01
DX: G89.29 Other chronic pain (principal); H92.02 Otalgia, left ear; I25.10 Atherosclerotic heart disease of native coronary artery without angina pectoris; E78.00 Pure hypercholesterolemia, unspecified; I10 Essential (primary) hypertension; J44.9 Chronic obstructive pulmonary disease, unspecified; M19.90 Unspecified osteoarthritis, unspecified site; K21.9 Gastro-esophageal reflux disease without esophagitis; Z79.899 Other long term (current) drug therapy
CPT/HCPCS: 36415; 80053; 81001; 83605; 85025; 99283

== ENCOUNTER 2018-11-24 16:47 | Inpatient (IN) | payer MEDICARE ==
[2018-11-24] MEDS ORDERED: MOTRIN 600 MG PO STA (17:06)
[2018-11-24] MEDS ORDERED: TYLENOL 325 MG PO STA (17:06)
[2018-11-24] MEDS ORDERED: Sodium Chloride 0.9% 1000 ML 1,000 ML IV STA ×2 (17:06→18:03)
[2018-11-24] MEDS ORDERED: TYLENOL 325 MG ONE (17:07)
[2018-11-24] MEDS ORDERED: MOTRIN 600 MG ONE (17:07)
[2018-11-24] MEDS ORDERED: Sodium Chloride 0.9% 1000 ML 1,000 ML ONE ×3 (17:07→21:36)
[2018-11-24 17:28] LABS: Lactic Acid 3.4 (0.4-2.0)
--- NOTE | 2018-11-24 17:31 | ERPHSYRPT ---
- History of Present Illness Time Seen by Provider: 11/24/18 17:00 Source: patient, family Patient Subjective Stated Complaint: WEAKNESS, YELLOW SPUTUM, CHILLS, SWEATING, ABDOMINAL PAIN. CHEST PAIN BEGAN LAST NIGHT WITH SWEATS. VOMITING ON THURSDAY. DIARRHEA SINCE YESTERDAY AND TODAY. Triage Nursing Assessment: ORIETED TO DAY OF WEEK, BUT NOT YEAR. ORIENTED TO PLACE. MAXIMAL ASSISTANCE OF 2 PEOPLE TO TRANSFER FROM WHEELCHAIR TO BED. Physician History: 68 y/o white male presents with progressive weakness and fever. pt evaluated yesterday in this ED and sent home with the dx of. dr. hudson called me to inform me pt returning for reevaluation and repeat workup. pt sx worsening. pt is mildy confused, denies cp, and soa but is coughing up yellow sputum and complains of back pain and generalized abd pain. n/v/d has been present today. Timing/Duration: day(s) (2), intermittent, worse Fever Severity: severe Fever Therapy GOVERNMENT SERVICE EXECUTIVE: none Associated Symptoms: abdominal pain, confusion, cough, muscle aches, nausea/ vomiting, weakness, No chest pain Allergies/Adverse Reactions: levofloxacin Allergy (Intermediate, Verified 11/23/18 18:33) Hives Home Medications: Aspirin 81 mg PO DAILY 08/02/16 [History] Atenolol 25 mg PO QPM 08/02/16 [History] Cholecalciferol (Vitamin D3) [Vitamin D3] 1,000 unit PO DAILY 08/02/16 [History] Lovastatin 10 mg PO HS 08/02/16 [History] Clopidogrel Bisulfate 75 mg [PLAVIX 75 MG Tablet] 75 mg PO DAILY 09/29/16 [History] Dronedarone Hydrochloride 400* [Multaq 400 MG] 400 mg PO BID 09/29/16 [ History] Levothyroxine Sodium 50 Mcg [Synthroid 50 Mcg] 75 mcg PO DAILY 09/29/16 [ History] Tamsulosin HCl 0.4 mg [Flomax 0.4 MG] 0.4 mg PO HS 09/29/16 [History] Loratadine 10 mg [Claritin 10 mg] 10 mg PO DAILY 12/17/16 [History] raNITIdine HCl [Ranitidine HCl] 150 mg PO DAILY 12/17/16 [History] Fluticasone/Vilanterol [Breo Ellipta 200-25 Mcg INH] 1 each IH DAILY 03/10/17 [ History] Budesonide/Formoterol Fumarate [Symbicort 80-4.5 Mcg Inhaler] 6.9 gm IH BID [History] Piroxicam [Feldene] 10 mg PO DAILY 05/13/18 [History] Doxycycline Hyclate 100 mg [Vibramycin 100 MG] 100 mg DAILY 07/20/18 [ History] Hx Tetanus, Diphtheria Vaccination/Date Given: Yes Hx Influenza Vaccination/Date Given: Yes Hx Pneumococcal Vaccination/Date Given: Yes - Review of Systems Constitutional: Fever, Night Sweats, Weakness Eyes: No Symptoms Ears, Nose, & Throat: No Symptoms Respiratory: Cough, No Dyspnea Cardiac: No Chest Pain Abdominal/Gastrointestinal: Abdominal Pain, Nausea, Vomiting, Diarrhea Genitourinary Symptoms: No Symptoms Musculoskeletal: No Symptoms Skin: No Symptoms Neurological: No Symptoms Psychological: No Symptoms Endocrine: No Symptoms Hematologic/Lymphatic: No Symptoms Immunological/Allergic: No Symptoms All Other Systems: Reviewed and Negative - Past Medical History Pertinent Past Medical History: Yes Neurological History: No Pertinent History ENT History: Cataracts Cardiac History: Angina, Coronary Artery Disease, High Cholesterol, Hypertension Respiratory History: COPD, Pneumonia Endocrine Medical History: No Pertinent History Musculoskeletal History: Arthritis GI Medical History: GERD, Hemorrhoids History: No Pertinent History Psycho-Social History: No Pertinent History Male Reproductive Disorders: Prostate Problems - Past Surgical History Past Surgical History: Yes Neuro Surgical History: No Pertinent History Cardiac: Cardiac Catheterization, Cardiac Stent, Other Respiratory: No Pertinent History Gastrointestinal: Cholecystectomy Genitourinary: No Pertinent History Musculoskeletal: No Pertinent History Male Surgical History: No Pertinent History Other Surgical History: heart cath with 2 stents aug 2016. Apr 2016 pt had biopsy of mediastinum lymphnodes - Social History Smoking Status: Never smoker Exposure to second hand smoke: No Alcohol Use: None Drug Use: none Patient Lives Alone: No Significant Family History: no pertinent family hx - Nursing Vital Signs Nursing Vital Signs: Initial Vital Signs Pulse Rate 105 H 11/24/18 16:47 Respiratory Rate 24 11/24/18 16:47 Blood Pressure 160/90 11/24/18 16:47 O2 Sat by Pulse Oximetry 92 L 11/24/18 16:47 - Physical Exam General Appearance: moderate distress, alert, lethargy, thin Eye Exam: PERRL/EOMI ENT Exam: normal ENT inspection, no apparent trauma, hearing grossly normal, TMs normal, pharynx normal Neck Exam: normal inspection, non-tender, supple, full range of motion, trachea midline Respiratory Exam: normal breath sounds, chest non-tender, lungs clear, no respiratory distress, no accessory muscle use Cardiovascular/Chest Exam: tachycardia Gastrointestinal/Abdominal Exam: soft, no distention, no mass, no guarding, normal bowel sounds, tenderness (mild diffuse tenderness), No rebound, No pulsatile mass Rectal Exam: not done Extremity Exam: non-tender, normal range of motion, normal inspection Neurologic Exam: alert, oriented x 3, cooperative, 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 II-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 nml as tested, normal mood/affect Skin Exam: normal color, warm, dry Lymphatic: No adenopathy SpO2 Interpretation: borderline oxygenation SpO2: 92 O2 Delivery: Room Air - Course Nursing assessment & vital signs reviewed: Yes EKG Interpreted by Me: RATE (70), Sinus Tach, Left Munger Deviation, Other (new onset sinus tach when compared to ekg 07/20/18) Ordered Tests: Active Orders 24 hr Category Date Time Status Catheter-[place] Tirado STAT Care 11/24/18 17:06 Active EKG-ER Only STAT Care 11/24/18 17:06 Active IV Insertion STAT Care 11/24/18 17:06 Active Oxygen-ED Only Nasal Cannula 2 lpm Care 11/24/18 17:44 Active Pulse Oximetry (ED) STAT Care 11/24/18 17:06 Active Rectal Temperature STAT Care 11/24/18 17:06 Active ABDOMEN AND PELVIS W/0 CONTRAS [CT] Stat Exams 11/24/18 18:01 Taken CHEST 1 VIEW (PORTABLE) Stat Exams 11/24/18 17:07 Taken BLOOD CULTURE Stat Lab 11/24/18 17:57 Received CBC W DIFF Stat Lab 11/24/18 17:10 Completed CMP Stat Lab 11/24/18 17:10 Completed CULTURE,URINE Stat Lab 11/24/18 17:57 Received Lactic Acid Stat Lab 11/24/18 17:25 Completed Lactic Acid Stat Lab 11/24/18 20:48 Completed Manual Differential NC Stat Lab 11/24/18 17:10 Completed TROPONIN Q3H Lab 11/24/18 18:00 Completed UA W/RFX UR CULTURE Stat Lab 11/24/18 17:57 Completed Transfer Order Routine Transfer 11/24/18 Ordered Medication Summary Generic Name Dose Route Start Last Admin Trade Name Tay PRN Reason Stop Dose Admin Sodium Chloride 1,000 mls @ 250 mls/hr 11/24/18 21:30 11/24/18 21:37 Sodium Chloride 0.9% 1000 Ml IV 12/24/18 21:29 250 mls/hr .Q4H ROHIT Administration Discontinued Medications Generic Name Dose Route Start Last Admin Trade Name Tay PRN Reason Stop Dose Admin Acetaminophen Confirm 11/24/18 17:07 Tylenol 325 Mg Administered 11/24/18 17:08 Dose 650 mg .ROUTE .STK-MED ONE Acetaminophen 650 mg 11/24/18 17:06 11/24/18 17:09 Tylenol 325 Mg PO 11/24/18 17:07 650 mg STAT STA Administration Sodium Chloride Confirm 11/24/18 17:07 Sodium Chloride 0.9% 1000 Ml Administered 11/24/18 17:08 Dose 1,000 mls @ ud .ROUTE .STK-MED ONE Sodium Chloride 1,000 mls @ 999 mls/hr 11/24/18 17:06 11/24/18 18:46 Sodium Chloride 0.9% 1000 Ml IV 11/24/18 18:06 Infused .Q1H1M STA Infusion Meropenem 1 g/ Sodium Chloride 100 mls @ 200 mls/hr 11/24/18 18:03 11/24/18 18:34 IV 11/24/18 18:32 200 mls/hr STAT ONE Administration Sodium Chloride 1,000 mls @ 999 mls/hr 11/24/18 18:03 11/24/18 18:34 Sodium Chloride 0.9% 1000 Ml IV 11/24/18 19:03 999 mls/hr .Q1H1M STA Administration Sodium Chloride Confirm 11/24/18 18:06 Sodium Chloride 0.9% 100 Ml Ivpb Administered 11/24/18 18:07 Dose 100 mls @ ud IV .STK-MED ONE Sodium Chloride Confirm 11/24/18 18:06 Sodium Chloride 0.9% 1000 Ml Administered 11/24/18 18:07 Dose 1,000 mls @ ud .ROUTE .STK-MED ONE Ibuprofen Confirm 11/24/18 17:07 Motrin 600 Mg Administered 11/24/18 17:08 Dose 600 mg .ROUTE .STK-MED ONE Ibuprofen 600 mg 11/24/18 17:06 11/24/18 17:09 Motrin 600 Mg PO 11/24/18 17:07 600 mg STAT STA Administration Meropenem Confirm 11/24/18 18:06 Merrem 1 Gm Administered 11/24/18 18:07 Dose 1 g IV .STK-MED ONE Lab/Rad Data: Laboratory Result Diagrams 11/24/18 17:10 11/24/18 17:10 Laboratory Results 11/24/18 11/24/18 11/24/18 Range/Units 20:48 18:00 17:57 WBC (4.0-10.5) K/mm3 RBC (4.1-5.6) M/mm3 Hgb (12.5-18.0) gm/dl Hct (42-50) % MCV (78-100) fl MCH (26-32) pg MCHC (32-36) g/dl RDW (11.5-14.0) % Plt Count (150-450) K/mm3 MPV (6-9.5) fl Absolute Granulocytes (1.4-6.9) Sodium (137-145) mmol/L Potassium (3.5-5.1) mmol/L Chloride (98-107) mmol/L Carbon Dioxide (22-30) mmol/L Anion Gap (5-15) MEQ/L BUN (9-20) mg/dL Creatinine (0.66-1.25) mg/dL Estimated GFR ML/MIN Glucose (74-106) mg/dL Lactic Acid 1.1 (0.4-2.0) Calcium (8.4-10.2) mg/dL Total Bilirubin (0.2-1.3) mg/dL AST (17-59) U/L ALT (0-50) U/L Alkaline Phosphatase (38-126) U/L Troponin I < 0.012 (0.000-0.034) ng/mL Serum Total Protein (6.3-8.2) g/dL Albumin (3.5-5.0) g/dL Urine Color RACHEL (YELLOW) Urine Appearance TURBID (CLEAR) Urine pH 5.0 (5-6) Ur Specific Morgan 1.027 (1.005-1.025) Urine Protein 100 (Negative) Urine Ketones TRACE (NEGATIVE) Urine Blood MODERATE (0-5) Giovanni/ul Urine Nitrite NEGATIVE (NEGATIVE) Urine Bilirubin NEGATIVE (NEGATIVE) Urine Urobilinogen NEGATIVE (0-1) mg/dL Ur Leukocyte Esterase NEGATIVE (NEGATIVE) Urine WBC (Auto) 6-10 (0-5) /HPF Urine RBC (Auto) NONE (0-2) /HPF U Epithel Cells (Auto) NONE (FEW) /HPF Urine Bacteria (Auto) FEW (NEGATIVE) /HPF Urine Mucus (Auto) SLIGHT (NEGATIVE) /HPF Urine Culture Reflexed YES (NO) Urine Glucose 50 (NEGATIVE) mg/dL 11/24/18 11/24/18 11/24/18 Range/Units 17:25 17:10 17:10 WBC 3.8 L (4.0-10.5) K/mm3 RBC 5.20 (4.1-5.6) M/mm3 Hgb 16.9 (12.5-18.0) gm/dl Hct 49.4 (42-50) % MCV 95.0 (78-100) fl MCH 32.5 H (26-32) pg MCHC 34.2 (32-36) g/dl RDW 14.9 H (11.5-14.0) % Plt Count 34 L D (150-450) K/mm3 MPV 11.1 H (6-9.5) fl Absolute Granulocytes 3.25 (1.4-6.9) Sodium 136 L (137-145) mmol/L Potassium 4.3 (3.5-5.1) mmol/L Chloride 102 (98-107) mmol/L Carbon Dioxide 20 L (22-30) mmol/L Anion Gap 17.3 H (5-15) MEQ/L BUN 24 H (9-20) mg/dL Creatinine 1.52 H (0.66-1.25) mg/dL Estimated GFR 48.4 ML/MIN Glucose 127 H (74-106) mg/dL Lactic Acid 3.4 H (0.4-2.0) Calcium 8.9 (8.4-10.2) mg/dL Total Bilirubin 3.50 H (0.2-1.3) mg/dL AST 128 H (17-59) U/L ALT 133 H (0-50) U/L Alkaline Phosphatase 86 (38-126) U/L Troponin I (0.000-0.034) ng/mL Serum Total Protein 7.1 (6.3-8.2) g/dL Albumin 4.0 (3.5-5.0) g/dL Urine Color (YELLOW) Urine Appearance (CLEAR) Urine pH (5-6) Ur Specific Morgan (1.005-1.025) Urine Protein (Negative) Urine Ketones (NEGATIVE) Urine Blood (0-5) Giovanni/ul Urine Nitrite (NEGATIVE) Urine Bilirubin (NEGATIVE) Urine Urobilinogen (0-1) mg/dL Ur Leukocyte Esterase (NEGATIVE) Urine WBC (Auto) (0-5) /HPF Urine RBC (Auto) (0-2) /HPF U Epithel Cells (Auto) (FEW) /HPF Urine Bacteria (Auto) (NEGATIVE) /HPF Urine Mucus (Auto) (NEGATIVE) /HPF Urine Culture Reflexed (NO) Urine Glucose (NEGATIVE) mg/dL - Progress Progress: improved, re-examined Progress Note: 11/24/18 22:06 cxr-no acute process.; ct abd/pelvis-no acute process. 11/24/18 22:[address] hudson pt hx, condition, lab, ekg, and xray results. she accepts pt for admission Counseled pt/family regarding: lab results, diagnosis, need for follow-up, rad results - Departure Departure Disposition: In-patient Admission Clinical Impression: Fever, Sepsis Condition: Stable Critical Care Time: Yes Critical Care Time(excluding separately billable procedures): 30-74 minutes Referrals: NATALEE POTTS NP [Primary Care Provider] -
[2018-11-24 17:42] LABS: ANION GAP 17.3 MEQ/L (5-15); BILIRUBIN,TOTAL 3.5 mg/dL (0.2-1.3); Calcium 8.9 mg/dL (8.4-10.2); Creatinine 1 1.52 mg/dL (0.66-1.25); Potassium 4.3 mmol/L (3.5-5.1); Total Protein 7.1 g/dL (6.3-8.2)
[2018-11-24 17:43] LABS: Granulocyte Absolute (ANC) 3.25 (1.4-6.9); Hematocrit 49.4 % (42-50); Hemoglobin 16.9 gm/dl (12.5-18.0); Mean Corpuscular Hemoglobin 32.5 pg (26-32); Mean Corpuscular Hgb Concent. 34.2 g/dl (32-36); Mean Platelet Volume 11.1 fl (6-9.5); Platelet Count 34 K/mm3 (150-450); Red Cell Distribution Width 14.9 % (11.5-14.0); White Blood Count 3.8 K/mm3 (4.0-10.5)
[2018-11-24] MEDS ORDERED: Merrem 1 GM 1 G in Sodium Chloride 100ML MINI-BAG PLUS 100 ML IV ONE (18:03)
[2018-11-24 18:05] LABS: Appearance TURBID (CLEAR); Bacteria FEW /HPF (NEGATIVE); Bilirubin NEGATIVE (NEGATIVE); Blood MODERATE Ery/ul (0-5); Glucose 50 mg/dL (NEGATIVE); Ketones TRACE (NEGATIVE); Leukocyte Esterase NEGATIVE (NEGATIVE); Mucus SLIGHT /HPF (NEGATIVE); Nitrite NEGATIVE (NEGATIVE); Protein,Urine Dip 100 (Negative); Specific Gravity 1.027 (1.005-1.025); Urobilinogen NEGATIVE mg/dL (0-1)
[2018-11-24] MEDS ORDERED: Merrem 1 GM IV ONE (18:06)
[2018-11-24] MEDS ORDERED: Sodium Chloride 0.9% 100 ML IVPB 100 ML IV ONE (18:06)
[2018-11-24] MEDS ORDERED: Sodium Chloride 0.9% 1000 ML 1,000 ML IV SCH (21:30)
[2018-11-24] MEDS ORDERED: Zofran 4 MG/2 ML VIAL IV PRN (23:11)
[2018-11-25] MEDS: Sodium Chloride 0.9% 1000 ML 1,000 ML IV SCH ×3 (02:07→17:26)
[2018-11-25 03:21] LABS: BAND 47 % (0.0-2.0); Lymphocytes 8 % (24-44); Monocyte 7 % (0.0-12.0); Neutrophils 38 % (36.-66.); Platelet Estimate DECREASED (NORMAL); Total Cells Counted 100
[2018-11-25 03:24] LABS: Burr Cells 1+; Poikilocytosis 2+
[2018-11-25] MEDS ORDERED: Merrem 1 GM 1 G in Sodium Chloride 100ML MINI-BAG PLUS 100 ML IV SCH (06:00)
[2018-11-25 06:20] LABS: Hematocrit 43.4 % (42-50); Hemoglobin 14.4 gm/dl (12.5-18.0); Mean Cell Volume 97.1 fl (78-100); Mean Corpuscular Hemoglobin 32.2 pg (26-32); Mean Corpuscular Hgb Concent. 33.2 g/dl (32-36); Mean Platelet Volume 10.8 fl (6-9.5); Red Blood Count 4.47 M/mm3 (4.1-5.6); Red Cell Distribution Width 15.1 % (11.5-14.0)
[2018-11-25 06:29] LABS: Platelet Count 24 K/mm3 (150-450)
[2018-11-25 06:40] LABS: ALBUMIN 2.6 g/dL (3.5-5.0); ALKALINE PHOSPHATASE 64 U/L (38-126); BLOOD UREA NITROGEN 22 mg/dL (9-20); CHLORIDE 110 mmol/L (98-107); Calcium 7.6 mg/dL (8.4-10.2); Carbon Dioxide 21 mmol/L (22-30); Glucose 122 mg/dL (74-106); Potassium 4.1 mmol/L (3.5-5.1); SGOT/AST 112 U/L (17-59); SGPT/ALT 105 U/L (0-50); SODIUM 140 mmol/L (137-145); Total Protein 5.2 g/dL (6.3-8.2)
[2018-11-25] MEDS ORDERED: Sodium Chloride 0.9% 500 ML 500 ML IV ONE (06:56)
[2018-11-25] MEDS ORDERED: VIBRAMYCIN 100 MG*** 100 MG in Dextrose 5%/Water IV Soln. 100ML PLUS BAG 100 ML IV ONE (07:30)
[2018-11-25] MEDS: TYLENOL 325 MG PO PRN ×2 (08:00→18:11)
--- NOTE | 2018-11-25 08:43 | XRAY ---
Indication: Diffuse abdominal pain. Multiple contiguous axial images obtained through the abdomen and pelvis without contrast as ordered. Comparison: May 13, 2018. Lung bases again demonstrates bibasilar dependent atelectasis and left posterior gutter calcified granuloma. No effusion. Heart is not enlarged. Noncontrasted stomach and bowel loops appear nonobstructed. Stable minimal sigmoid diverticulosis, cholecystectomy, and Tirado catheter. No free fluid/air. Spleen is enlarged measuring 14.4 cm in greatest axial dimension, previously 13.1 cm again with calcified granulomas. Remaining liver, pancreas, spleen, adrenal glands, kidneys, and ureters appear unremarkable for noncontrast exam. Again mild aortoiliac calcifications without AAA. Osseous structures intact again with minimal degenerative changes throughout the spine and L1 Schmorl node. Stable small fatty right inguinal hernia. Impression: 1. Again splenomegaly, sigmoid diverticulosis, fatty right inguinal hernia, evidence for old granulomatous disease, and Tirado catheter in situ. 2. No new or acute intra-abdominal/pelvic abnormalities on this noncontrast exam. CT DI 23.03
--- NOTE | 2018-11-25 08:45 | XRAY ---
Indication: Fever. Comparison: One day earlier. Portable chest better inflated and clear. Heart is not enlarged for AP portable technique. No new/acute findings. Impression: Nonacute chest.
--- NOTE | 2018-11-25 08:45 | XRAY ---
Indication: Fever and weakness. Comparison: July 20, 2018. Portable chest less inflated accentuating the cardiopulmonary structures and crowding the lung bases. No focal infiltrate, consolidation, or large effusion. Heart is borderline enlarged. Bony thorax intact again with mild degenerative changes. Impression: Borderline cardiomegaly. Negative for acute pneumonic process or CHF.
[2018-11-25 08:57] LABS: BAND 34 % (0.0-2.0); Lymphocytes 14 % (24-44); Metamyelocyte 2 %; Neutrophils 50 % (36.-66.); Total Cells Counted 100
[2018-11-25 08:58] LABS: Platelet Estimate DECREASED (NORMAL)
[2018-11-25 09:13] LABS: INR 1.09 (0.8-3.0); PROTIME 12.7 SECONDS (8.83-12.87)
[2018-11-25] MEDS ORDERED: DUONEB 0.5-3 MG/3 ml Neb IH PRN (09:50)
[2018-11-25] MEDS ORDERED: NON-FORMULARY ITEM (Cholecalciferol (Vitamin D3) [D3-2000] 2,000 UNIT) PO SCH (10:00)
[2018-11-25] MEDS: VITAMIN D PO SCH (10:28)
[2018-11-25] MEDS: Proscar 5 MG PO SCH (10:28)
[2018-11-25] MEDS: BENTYL 20 MG PO SCH ×4 (10:28→21:52)
[2018-11-25] MEDS: Multaq 400 MG PO SCH ×2 (10:28→21:52)
[2018-11-25] MEDS: PROTONIX 40 MG IV IV SCH (10:28)
[2018-11-25] MEDS: SYNTHROID 88 MCG PO SCH (10:28)
[2018-11-25] MEDS: Neurontin 100 MG PO SCH (10:28)
[2018-11-25] MEDS: Pepcid 20 MG PO SCH ×2 (10:28→21:52)
[2018-11-25] MEDS: Advair Hfa 115/21 Common canister IH SCH ×2 (10:33→19:25)
--- NOTE | 2018-11-25 11:04 | HP ---
HISTORY OF PRESENT ILLNESS: This is a 68 year-old patient of nurse practitioner, Odilia Gilman, who presented to the emergency department first on 11/23/2018 with vague symptoms and then again he presented to see the nurse practitioner, Montserrat Hand, on 11/24/2018. She asked me to see the patient while he was in the clinic due to his nonspecific multiple symptoms and generalized weakness which was very new for him as well as the possibility of some chest pain and history of coronary artery disease. I talked with Dr. Carranza who was willing to see him in the emergency department for evaluation and treatment. He was admitted from the emergency department. The patient reported that he started to have leg pain, back pain and these were new for him. He said it is dull and will stay for quite a few hours. He reports having diarrhea that started yesterday afternoon as well as abdominal pain that started before he went to the emergency room on 11/23/2018. He reports some shaking all over at times today. He denies any nausea or vomiting. He reports some shortness of breath. He was recently at [facility] in October for pneumonia and the family reports that he did fine and he was discharged. He reports that he has been out in the [place] and his yard. He does not know of any tick bites, no rashes. He reports he bruises easily since being on blood thinner. He is on aspirin and Plavix for his coronary artery disease. Dr. 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 He reports some lightheadedness and dizziness that is worse when he is getting up. He has had headaches but this is gone now. He denies any lower extremity swelling. He lives at home with his who is blind and was having trouble taking care of him. She reports that he almost fell at home a couple of times. REVIEW OF SYSTEMS: As noted in the history of present illness. PAST MEDICAL HISTORY: Chronic obstructive pulmonary disease. Left-sided sinus infection which he has been on Cefdinir for and has an appointment with an ENT coming up this . Coronary artery disease with stents in place. Flange Turner again is Dr. Poe. PAST SURGICAL HISTORY: Cholecystectomy. Prostate surgery. MEDICATIONS: Please see the medication reconciliation list which I reviewed. ALLERGIES: LEVOFLOXACIN. SOCIAL HISTORY: He has never smoked. He used to drink alcohol years ago but none currently. He is and lives with his . He has not traveled anywhere. FAMILY HISTORY: Noncontributory. PHYSICAL EXAMINATION: VITAL SIGNS: Temperature current 98.1F, heart rate 94, respiratory rate 18, blood pressure 124/56. Oxygen saturation 97% on 3 liters nasal cannula. GENERAL: The patient is sitting up in his bed in no acute distress. He is oriented to , knows the year is 2018 and knows his full name. He knows the President of [facility] is President Musa. CVS: His heart has a regular rate and rhythm. No murmurs, gallops or rubs. CHEST: Clear to auscultation bilaterally. No crackles or wheezes. ABDOMEN: Diffusely tender. No guarding. No rigidity. Normal bowel sounds. EXTREMITIES: No clubbing, cyanosis or edema. He has a few scattered bruises on his lower arms bilaterally. No rashes. No petechiae. LABORATORY DATA AND TESTS: On admission white blood cell count was 3.8 with 38 neutrophils, 47% bands, 8% lymphocytes and 7% monocytes. He had a peripheral smear read by the pathologist as leukopenia, marked thrombocytopenia, several [id number] cells are seen suggesting myelodysplastic syndrome. I talked with her personally. She did not see did not see any blasts. Repeat CBC with white blood cell count 2.0, hemoglobin 14.4, PLT count 24,000. Differential on the white blood cell count was 50% neutrophils, 34% bands, 14% lymphs. International normalized ratio normal at 1.09. Carbon dioxide 21. Creatinine 1.5 on admission and now 1.1. Glucose 122. Bilirubin 3.5 on admission and now 3.0. AST 112, ALT 105. Protein 5.2. UA 6 to 10 white blood cells. He has urine cultures and blood cultures in lab. Repeat chest x-ray this morning was clear and it was also clear last night. He has had serial negative troponins. Lactate on admission was 3.4 and repeat 1.1 in the emergency room. ASSESSMENT AND PLAN: 1) SEPSIS: He was started on meropenem in the emergency department and given at least 2 liters of IV fluids there. I have given him another 500 ml of normal saline this morning and continue the fluids at 100 ml/hour. His blood pressure is much better this morning. His mean arterial pressure was never less than 60. His creatinine is improving. Liver function tests are improving. He continues to have leukopenia with a left shift. I also ordered studies for tick borne illnesses, hepatitis panel and HIV. I started him on doxycycline as well. 2) LEUKOPENIA: I discussed his leukopenia and thrombocytopenia with Dr. Brice. He said if the patient worsens he would be happy to accept in transfer. He thinks this is most likely a sepsis picture but is concerned it could be an acute leukemia and he may need a bone marrow biopsy down the road if his numbers do not improve or symptoms do not improve. 3) THROMBOCYTOPENIA: We are holding his aspirin and Plavix. He should not get any blood thinners. 4) HISTORY OF CHRONIC OBSTRUCTIVE PULMONARY DISEASE: Will continue with home medications. 5) HISTORY OF CORONARY ARTERY DISEASE: Again, we are holding aspirin and Plavix. I am holding his blood pressure medication. Will continue the Multaq. Will try to obtain records from Dr. Poe as I do not have any on his outpatient chart. 6) DEEP VENOUS THROMBOSIS PROPHYLAXIS: Will use RACHID lose, SCD's and again avoid any anticoagulants. 7) DIARRHEA: I have asked for Clostridium difficile toxin to be checked as he has been recently on Cefdinir for sinus infection. 8) ELEVATED LIVER FUNCTION TEST: Most likely due to sepsis.
[2018-11-25] MEDS: Merrem 1 GM 1 G in Sodium Chloride 100ML MINI-BAG PLUS 100 ML IV SCH ×2 (13:09→21:52)
[2018-11-25 17:31] LABS: 027 TOX PROD PRESUMPTIVE NEGATIVE (NEGATIVE); TOXIGENIC C. DIFF ORG NEGATIVE (NEGATIVE)
[2018-11-25] MEDS: VIBRAMYCIN 100 MG*** 100 MG in Dextrose 5%/Water IV Soln. 100ML PLUS BAG 100 ML IV SCH (18:29)
[2018-11-25] MEDS: Zocor 10MG PO SCH (21:52)
[2018-11-25] MEDS ORDERED: NON-FORMULARY ITEM (Lovastatin [Lovastatin] 20 MG) PO SCH (22:00)
[2018-11-26] MEDS: TYLENOL 325 MG PO PRN ×2 (00:08→15:09)
[2018-11-26] MEDS: Sodium Chloride 0.9% 1000 ML 1,000 ML IV SCH ×2 (03:58→15:15)
[2018-11-26] MEDS: Merrem 1 GM 1 G in Sodium Chloride 100ML MINI-BAG PLUS 100 ML IV SCH ×3 (05:24→22:02)
[2018-11-26 05:35] LABS: HIV Antigen/Antibody Combo Non Reactive (Non Reactive)
[2018-11-26 06:06] LABS: Hematocrit 37.4 % (42-50); Hemoglobin 12.6 gm/dl (12.5-18.0); Mean Cell Volume 95.9 fl (78-100); Mean Corpuscular Hemoglobin 32.3 pg (26-32); Mean Corpuscular Hgb Concent. 33.7 g/dl (32-36); Mean Platelet Volume 11.3 fl (6-9.5)
[2018-11-26 06:08] LABS: ALBUMIN 2.2 g/dL (3.5-5.0); ALKALINE PHOSPHATASE 71 U/L (38-126); ANION GAP 8.3 MEQ/L (5-15); BLOOD UREA NITROGEN 17 mg/dL (9-20); CHLORIDE 112 mmol/L (98-107); Calcium 7.5 mg/dL (8.4-10.2); Carbon Dioxide 21 mmol/L (22-30); Glucose 90 mg/dL (74-106); Potassium 3.9 mmol/L (3.5-5.1); SGOT/AST 95 U/L (17-59); SGPT/ALT 95 U/L (0-50); SODIUM 137 mmol/L (137-145); Total Protein 4.6 g/dL (6.3-8.2)
[2018-11-26 06:17] LABS: Platelet Count 21 K/mm3 (150-450); White Blood Count 1.3 K/mm3 (4.0-10.5)
[2018-11-26 06:43] LABS: BAND 28 % (0.0-2.0); Lymphocytes 22 % (24-44); Monocyte 8 % (0.0-12.0); Neutrophils 42 % (36.-66.); Total Cells Counted 100
[2018-11-26 06:44] LABS: Platelet Estimate DECREASED (NORMAL)
[2018-11-26] MEDS: Advair Hfa 115/21 Common canister IH SCH (06:59)
--- NOTE | 2018-11-26 08:42 | PCM.NOTE ---
Date and Time: 11/26/18836 Subjective Assessment: Patient reports not as much back pain or abdominal pain. Continued diarrhea. Sometimes dizzy when he stands up. Eating his breakfast without difficulty. No fevers yesterday. 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 Patient reports his legs still feel weak and "won't last long" when he stands up. - Review of Systems Constitutional: Weakness Eyes: No Symptoms Ears, Nose, & Throat: No Symptoms Respiratory: No Symptoms Cardiac: No Symptoms Abdominal/Gastrointestinal: Abdominal Pain, Diarrhea, Other (no blood in stool) Genitourinary Symptoms: No Symptoms Musculoskeletal: No Symptoms Skin: No Symptoms Objective Exam General Appearance: no apparent distress, alert, other (hard of hearing) Neurologic Exam: alert, cooperative, normal mood/affect Skin Exam: normal color, warm, dry, other (few bruises on forearms), No petechiae Respiratory Exam: normal breath sounds, lungs clear, No crackles/rales, No rhonchi, No wheezing Cardiovascular Exam: regular rate/rhythm, normal heart sounds, No murmur, No friction rub, No gallop Gastrointestinal/Abdomen Exam: soft, normal bowel sounds, tenderness, other ( diffuse, mild tenderness), No distention, No mass, No guarding Extremity Exam: normal inspection, other (no c/c/e) OBJECTIVE DATA Vital Signs: Vital Signs - 24 hr Temp Pulse Resp BP BP Pulse Ox 11/26/18 08:00 98.7 F 66 16 118/72 98 11/26/18 07:01 65 16 97 11/26/18 05:50 98.4 F 64 16 102/51 95 11/26/18 03:31 98.5 F 74 17 100/52 97 11/26/18 02:00 98.4 F 67 20 92/48 94/45 96 11/26/18 00:00 98.6 F 82 20 105/42 95 11/25/18 21:59 98.8 F 84 20 103/61 11/25/18 20:00 99.3 F 92 H 20 130/63 95 11/25/18 19:26 104 H 27 H 95 11/25/18 18:00 99 F 91 H 20 130/55 97 05/02/19 16:00 98.4 F 84 20 98 11/25/18 14:00 99 F 101 H 20 132/63 98 11/25/18 11:52 18 11/25/18 11:40 99 F 90 18 122/66 97 11/25/18 10:36 88 21 95 11/25/18 10:00 88 18 118/63 98 Oxygen-Last 24 hours O2 Percentage 2 Liters = 28% O2 Percentage 3 Liters = 32% O2 Percentage 3 Liters = 32% O2 Percentage 3 Liters = 32% O2 Percentage 3 Liters = 32% Oxygen Flowrate (L/min)-RT 3 Oxygen Flowrate (L/min)-RT 3 Oxygen Flowrate (L/min)-RT 3 Oxygen Flowrate (L/min)-RT 3 Oxygen Flowrate (L/min)-RT 3 Pain Assessment - Last Documented Pain Intensity 0 Pain Scale Used 0-10 Pain Scale Intake and Output: Intake & Output 11/24/18 11/25/18 11/26/18 11/27/18 06:59 06:59 06:59 06:59 Intake Total 479 4167 Output Total 160 1350 Balance 319 2817 Weight 86.5 kg 92 kg Lab Results: Lab Results-Last 24 Hours 11/24/18 11/25/18 11/25/18 Range/Units 17:10 05:00 05:00 WBC (4.0-10.5) K/mm3 RBC (4.1-5.6) M/mm3 Hgb (12.5-18.0) gm/dl Hct (42-50) % MCV (78-100) fl MCH (26-32) pg MCHC (32-36) g/dl RDW (11.5-14.0) % Plt Count (150-450) K/mm3 MPV (6-9.5) fl Segmented Neutrophils (36.-66.) % Band Neutrophils (0.0-2.0) % Lymphocytes (Manual) (24-44) % Monocytes (Manual) (0.0-12.0) % Metamyelocytes % Platelet Estimate (NORMAL) RBC Morphology Smear Path Review PT 12.7 (8.83-12.87) SECONDS INR 1.09 (0.8-3.0) Sodium (137-145) mmol/L Potassium (3.5-5.1) mmol/L Chloride (98-107) mmol/L Carbon Dioxide (22-30) mmol/L Anion Gap (5-15) MEQ/L BUN (9-20) mg/dL Creatinine (0.66-1.25) mg/dL Estimated GFR ML/MIN Glucose (74-106) mg/dL Calcium (8.4-10.2) mg/dL Total Bilirubin (0.2-1.3) mg/dL AST (17-59) U/L ALT (0-50) U/L Alkaline Phosphatase (38-126) U/L Creatine Kinase 51 L (55-170) U/L Serum Total Protein (6.3-8.2) g/dL Albumin (3.5-5.0) g/dL Stl C. diff Tox B Gene (NEGATIVE) A. phagocytophilum Cmmt Babesia Species (PCR) Babesia microti DNA PCR Lyme IgG (Western Blot) Lyme IgM (Western Blot) C.difficile 027-NAP1-B1 (NEGATIVE) E.chaffeensis DNA (PCR) E. ewingii/canis (PCR) E. muris-like DNA (PCR) Hepatitis A IgM Ab Hep Bs Antigen Hep Bs Antibody, Quant Hep B Core Total Ab Hepatitis C Antibody HIV Ag/Ab Combo Qual (Non Reactive) HIV Ag/Ab Interpret 11/25/18 11/25/18 11/25/18 Range/Units 05:30 05:31 15:45 WBC (4.0-10.5) K/mm3 RBC (4.1-5.6) M/mm3 Hgb (12.5-18.0) gm/dl Hct (42-50) % MCV (78-100) fl MCH (26-32) pg MCHC (32-36) g/dl RDW (11.5-14.0) % Plt Count (150-450) K/mm3 MPV (6-9.5) fl Segmented Neutrophils 50 (36.-66.) % Band Neutrophils 34 H (0.0-2.0) % Lymphocytes (Manual) 14 L (24-44) % Monocytes (Manual) (0.0-12.0) % Metamyelocytes 2 % Platelet Estimate DECREASED (NORMAL) RBC Morphology NORMAL Smear Path Review PT (8.83-12.87) SECONDS INR (0.8-3.0) Sodium (137-145) mmol/L Potassium (3.5-5.1) mmol/L Chloride (98-107) mmol/L Carbon Dioxide (22-30) mmol/L Anion Gap (5-15) MEQ/L BUN (9-20) mg/dL Creatinine (0.66-1.25) mg/dL Estimated GFR ML/MIN Glucose (74-106) mg/dL Calcium (8.4-10.2) mg/dL Total Bilirubin (0.2-1.3) mg/dL AST (17-59) U/L ALT (0-50) U/L Alkaline Phosphatase (38-126) U/L Creatine Kinase (55-170) U/L Serum Total Protein (6.3-8.2) g/dL Albumin (3.5-5.0) g/dL Stl C. diff Tox B Gene NEGATIVE (NEGATIVE) A. phagocytophilum Cmmt Pending Babesia Species (PCR) Pending Babesia microti DNA PCR Pending Lyme IgG (Western Blot) Pending Lyme IgM (Western Blot) Pending C.difficile 027-NAP1-B1 PRESUMPTIVE NEGATIVE (NEGATIVE) E.chaffeensis DNA (PCR) Pending E. ewingii/canis (PCR) Pending E. muris-like DNA (PCR) Pending Hepatitis A IgM Ab Pending Hep Bs Antigen Pending Hep Bs Antibody, Quant Pending Hep B Core Total Ab Pending Hepatitis C Antibody Pending HIV Ag/Ab Combo Qual Non Reactive (Non Reactive) HIV Ag/Ab Interpret See Result Note: 11/26/18 11/26/18 Range/Units 05:25 05:25 WBC 1.3 L* (4.0-10.5) K/mm3 RBC 3.90 L (4.1-5.6) M/mm3 Hgb 12.6 (12.5-18.0) gm/dl Hct 37.4 L (42-50) % MCV 95.9 (78-100) fl MCH 32.3 H (26-32) pg MCHC 33.7 (32-36) g/dl RDW 15.0 H (11.5-14.0) % Plt Count 21 L* (150-450) K/mm3 MPV 11.3 H (6-9.5) fl Segmented Neutrophils 42 (36.-66.) % Band Neutrophils 28 H (0.0-2.0) % Lymphocytes (Manual) 22 L (24-44) % Monocytes (Manual) 8 (0.0-12.0) % Metamyelocytes % Platelet Estimate DECREASED (NORMAL) RBC Morphology NORMAL Smear Path Review PT (8.83-12.87) SECONDS INR (0.8-3.0) Sodium 137 (137-145) mmol/L Potassium 3.9 (3.5-5.1) mmol/L Chloride 112 H (98-107) mmol/L Carbon Dioxide 21 L (22-30) mmol/L Anion Gap 8.3 (5-15) MEQ/L BUN 17 (9-20) mg/dL Creatinine 0.90 (0.66-1.25) mg/dL Estimated GFR > 60.0 ML/MIN Glucose 90 (74-106) mg/dL Calcium 7.5 L (8.4-10.2) mg/dL Total Bilirubin 2.30 H (0.2-1.3) mg/dL AST 95 H (17-59) U/L ALT 95 H (0-50) U/L Alkaline Phosphatase 71 (38-126) U/L Creatine Kinase (55-170) U/L Serum Total Protein 4.6 L (6.3-8.2) g/dL Albumin 2.2 L (3.5-5.0) g/dL Stl C. diff Tox B Gene (NEGATIVE) A. phagocytophilum Cmmt Babesia Species (PCR) Babesia microti DNA PCR Lyme IgG (Western Blot) Lyme IgM (Western Blot) C.difficile 027-NAP1-B1 (NEGATIVE) E.chaffeensis DNA (PCR) E. ewingii/canis (PCR) E. muris-like DNA (PCR) Hepatitis A IgM Ab Hep Bs Antigen Hep Bs Antibody, Quant Hep B Core Total Ab Hepatitis C Antibody HIV Ag/Ab Combo Qual (Non Reactive) HIV Ag/Ab Interpret Radiology Exams: Radiology Procedures Category Date Time Status ABDOMEN AND PELVIS W/0 CONTRAS [CT] Stat Exams 11/24/18 18:01 Completed CHEST 1 VIEW (PORTABLE) Routine Exams 11/25/18 08:00 Completed CHEST 1 VIEW (PORTABLE) Stat Exams 11/24/18 17:07 Completed Assessment/Plan (1) Sepsis Current Visit: Yes Status: Acute Assessment & Plan: Continue meropenem. Urine culture and blood cultures no growth to date. He is also on doxycycline for concern for possible tick borne illness and these studies have been sent out and are pending. He has not had any fever. His WBC is lower today. His blood pressure has been stable. Renal function has improved and LFT's improving. (2) Neutropenia associated with infection Current Visit: Yes Status: Acute Assessment & Plan: Most likely due to sepsis. Discussed again with gyroscope technician, Dr. Brice, and he would not suggest doing anything differently at this time and states may take 5 days for WBC to recover. Patient in reverse isolation. Code(s): D70.3 - NEUTROPENIA DUE TO INFECTION (3) Thrombocytopenia Current Visit: Yes Status: Acute Assessment & Plan: Most likely due to sepsis. All blood thinners are being held. No signs of bleeding. (4) Coronary artery disease Current Visit: No Status: Acute Qualifiers: Coronary Disease-Associated Artery/Lesion type: [place] artery [place] vs. transplanted heart: [place] heart Associated angina: with unspecified angina Qualified Code(s): I25.119 - Atherosclerotic heart disease of [place] coronary artery with unspecified angina pectoris Assessment & Plan: Holding blood thinners and blood pressure medications at this time. Dr. Poe' s outpatient note reviewed from September 2018. Code(s): I25.10 - ATHSCL HEART DISEASE OF [place] CORONARY ARTERY W/O ANG PCTRS (5) COPD (chronic obstructive pulmonary disease) Current Visit: Yes Status: Acute Assessment & Plan: Continue with current treatment. (6) Diarrhea Current Visit: Yes Status: Acute Assessment & Plan: C. Diff negative. Code(s): R19.7 - DIARRHEA, UNSPECIFIED (7) Elevated liver function tests Current Visit: Yes Status: Acute Assessment & Plan: Improving; hep a, b and c pending. Code(s): R94.5 - ABNORMAL RESULTS OF LIVER FUNCTION STUDIES
[2018-11-26] MEDS: BENTYL 20 MG PO SCH ×4 (09:21→22:01)
[2018-11-26] MEDS: Pepcid 20 MG PO SCH ×2 (09:21→22:02)
[2018-11-26] MEDS: SYNTHROID 88 MCG PO SCH (09:21)
[2018-11-26] MEDS: VITAMIN D PO SCH (09:21)
[2018-11-26] MEDS: VIBRAMYCIN 100 MG*** 100 MG in Dextrose 5%/Water IV Soln. 100ML PLUS BAG 100 ML IV SCH ×2 (09:22→22:52)
[2018-11-26] MEDS: Proscar 5 MG PO SCH (09:22)
[2018-11-26] MEDS: Multaq 400 MG PO SCH ×2 (09:22→22:00)
[2018-11-26] MEDS: Neurontin 100 MG PO SCH (09:22)
[2018-11-26] MEDS: PROTONIX 40 MG IV IV SCH (09:22)
[2018-11-26 13:19] LABS: HEPATITIS B VIRUS CORE TOT AB Non Reactive (Non Reactive); HEPATITIS C VIRUS ANTIBODY Non Reactive (Non Reactive); Hepatitis B Surface Antigen Non Reactive (Non Reactive)
[2018-11-26] MEDS: ADVAIR 250-50 DISKUS 14 DOSE IH SCH (17:41)
[2018-11-26] MEDS: Zocor 10MG PO SCH (22:02)
[2018-11-27] MEDS: TYLENOL 325 MG PO PRN (00:40)
[2018-11-27] MEDS: Sodium Chloride 0.9% 1000 ML 1,000 ML IV SCH ×3 (02:51→21:32)
[2018-11-27] MEDS: Merrem 1 GM 1 G in Sodium Chloride 100ML MINI-BAG PLUS 100 ML IV SCH ×3 (05:18→21:35)
[2018-11-27] MEDS: ADVAIR 250-50 DISKUS 14 DOSE IH SCH ×2 (05:41→20:47)
[2018-11-27 05:49] LABS: Granulocyte Absolute (ANC) 1.26 (1.4-6.9); Hematocrit 34.7 % (42-50); Hemoglobin 11.9 gm/dl (12.5-18.0); Mean Cell Volume 94.6 fl (78-100); Mean Corpuscular Hemoglobin 32.4 pg (26-32); Mean Corpuscular Hgb Concent. 34.3 g/dl (32-36); Mean Platelet Volume 11.8 fl (6-9.5); Red Blood Count 3.67 M/mm3 (4.1-5.6); White Blood Count 2.9 K/mm3 (4.0-10.5)
[2018-11-27 06:03] LABS: Platelet Count 26 K/mm3 (150-450)
[2018-11-27 06:16] LABS: ALBUMIN 2.1 g/dL (3.5-5.0); ALKALINE PHOSPHATASE 70 U/L (38-126); ANION GAP 8.9 MEQ/L (5-15); BLOOD UREA NITROGEN 16 mg/dL (9-20); CHLORIDE 112 mmol/L (98-107); Calcium 7.6 mg/dL (8.4-10.2); Carbon Dioxide 19 mmol/L (22-30); Creatinine 1 0.85 mg/dL (0.66-1.25); Glucose 83 mg/dL (74-106); Potassium 3.6 mmol/L (3.5-5.1); SGOT/AST 76 U/L (17-59); SGPT/ALT 79 U/L (0-50); SODIUM 136 mmol/L (137-145); Total Protein 4.4 g/dL (6.3-8.2)
[2018-11-27] MEDS: PROTONIX 40 MG IV IV SCH (09:55)
[2018-11-27] MEDS: BENTYL 20 MG PO SCH ×4 (09:56→21:33)
[2018-11-27] MEDS: Pepcid 20 MG PO SCH ×2 (09:56→21:33)
[2018-11-27] MEDS: SYNTHROID 88 MCG PO SCH (09:56)
[2018-11-27] MEDS: VITAMIN D PO SCH (09:56)
[2018-11-27] MEDS: Multaq 400 MG PO SCH ×2 (09:56→21:33)
[2018-11-27] MEDS: Neurontin 100 MG PO SCH (09:56)
[2018-11-27] MEDS: Proscar 5 MG PO SCH (09:57)
[2018-11-27] MEDS: VIBRAMYCIN 100 MG*** 100 MG in Dextrose 5%/Water IV Soln. 100ML PLUS BAG 100 ML IV SCH ×2 (10:00→21:35)
[2018-11-27 10:44] LABS: ANISOCYTOSIS 1+; ATYPICAL LYMPHS 2 %; BAND 6 % (0.0-2.0); Lymphocytes 40 % (24-44); Monocyte 5 % (0.0-12.0); Neutrophils 47 % (36.-66.); Total Cells Counted 100
[2018-11-27 10:45] LABS: Platelet Estimate DECREASED (NORMAL); Toxic Granulation 1+
[2018-11-27] MEDS: Zocor 10MG PO SCH (21:33)
[2018-11-28 03:07] LABS: 027 TOX PROD PRESUMPTIVE NEGATIVE (NEGATIVE); TOXIGENIC C. DIFF ORG NEGATIVE (NEGATIVE)
[2018-11-28] MEDS: Merrem 1 GM 1 G in Sodium Chloride 100ML MINI-BAG PLUS 100 ML IV SCH ×3 (05:30→20:59)
[2018-11-28 06:07] LABS: Hematocrit 33.3 % (42-50); Hemoglobin 11.5 gm/dl (12.5-18.0); Mean Cell Volume 94.3 fl (78-100); Mean Corpuscular Hemoglobin 32.5 pg (26-32); Mean Corpuscular Hgb Concent. 34.5 g/dl (32-36); Mean Platelet Volume 10.8 fl (6-9.5); Platelet Count 42 K/mm3 (150-450); Red Blood Count 3.53 M/mm3 (4.1-5.6); Red Cell Distribution Width 15.2 % (11.5-14.0); White Blood Count 5.7 K/mm3 (4.0-10.5)
[2018-11-28 06:17] LABS: ALBUMIN 2.1 g/dL (3.5-5.0); ALKALINE PHOSPHATASE 71 U/L (38-126); ANION GAP 9.8 MEQ/L (5-15); BLOOD UREA NITROGEN 15 mg/dL (9-20); CHLORIDE 112 mmol/L (98-107); Calcium 7.5 mg/dL (8.4-10.2); Carbon Dioxide 19 mmol/L (22-30); Creatinine 1 0.92 mg/dL (0.66-1.25); Glucose 83 mg/dL (74-106); Potassium 3.4 mmol/L (3.5-5.1); SGOT/AST 62 U/L (17-59); SGPT/ALT 70 U/L (0-50); SODIUM 138 mmol/L (137-145); Total Protein 4.5 g/dL (6.3-8.2)
[2018-11-28 07:18] LABS: ANISOCYTOSIS 1+; ATYPICAL LYMPHS 1 %; BAND 2 % (0.0-2.0); Lymphocytes 56 % (24-44); Monocyte 8 % (0.0-12.0); Neutrophils 33 % (36.-66.); Platelet Estimate DECREASED (NORMAL); Total Cells Counted 100
[2018-11-28 07:19] LABS: Toxic Granulation 1+
[2018-11-28] MEDS: ADVAIR 250-50 DISKUS 14 DOSE IH SCH (07:45)
--- NOTE | 2018-11-28 08:08 | PCM.NOTE ---
Date and Time: 11/28/1880111/27/18 - Review of Systems Constitutional: Other (Patient was seen and examined 11/27/18 with his present.He states he is starting to feel stronger.) Ears, Nose, & Throat: Hearing Changes ( states patient has become hard of hearing this illness), Other (throat pain at admission has resolved) Respiratory: Other (states history of Pneumonia in September this year with admission to [facility] . No c/o cough or sob today.) Abdominal/Gastrointestinal: Abdominal Pain (generalized,states bloated), Diarrhea (improved,no longer watery but is pastey and has had 4 BMs today seems to be after eating), Appetite Changes (has a good appetite now) Skin: Other ( states patient went mushroom hunting 3 weeks ago and came in with tics on his face and neck.) Objective Exam General Appearance: no apparent distress Neurologic Exam: alert, oriented x 3 Skin Exam: normal color, warm, dry, other (no new bruising) Ears, Nose, Throat Exam: pharynx normal (no inflammation), TM abnormal (R), TM abnormal (L) (bilat TMs dull but not inflammed,ear canals are clear no cerumin build up), other Respiratory Exam: normal breath sounds Cardiovascular Exam: regular rate/rhythm Gastrointestinal/Abdomen Exam: tenderness (generalized,no guarding,no rebound), distention, splenomegaly OBJECTIVE DATA Vital Signs: Vital Signs - 24 hr Temp Pulse Resp BP Pulse Ox 11/28/18 08:01 98.4 F 61 20 131/71 95 11/28/18 07:45 71 18 96 11/28/18 04:00 99.0 F 76 17 122/62 94 L 11/27/18 23:51 98.4 F 74 18 122/57 94 L 11/27/18 20:51 73 21 96 11/27/18 20:00 98.6 F 65 20 124/64 96 11/27/18 16:00 86 11/27/18 12:43 86 20 123/68 97 11/27/18 12:00 107 H Oxygen-Last 24 hours O2 Percentage 2 Liters = 28% Pain Assessment - Last Documented Pain Intensity 0 Pain Scale Used 0-10 Pain Scale,FLACC Intake and Output: Intake & Output 11/25/18 11/26/18 11/27/18 11/28/18 11:59 11:59 11:59 11:59 Intake Total 057 4125 4370 177 Output Total 160 1350 580 Balance 559 3057 4370 1199 Weight 86.5 kg 92 kg 90.9 kg Lab Results: Lab Results-Last 24 Hours 11/27/18 11/28/18 11/28/18 Range/Units 05:43 02:12 05:10 WBC 5.7 (4.0-10.5) K/mm3 RBC 3.53 L (4.1-5.6) M/mm3 Hgb 11.5 L (12.5-18.0) gm/dl Hct 33.3 L (42-50) % MCV 94.3 (78-100) fl MCH 32.5 H (26-32) pg MCHC 34.5 (32-36) g/dl RDW 15.2 H (11.5-14.0) % Plt Count 42 L D (150-450) K/mm3 MPV 10.8 H (6-9.5) fl Segmented Neutrophils 47 33 L (36.-66.) % Band Neutrophils 6 H 2 (0.0-2.0) % Lymphocytes (Manual) 40 56 H (24-44) % Monocytes (Manual) 5 8 (0.0-12.0) % Atypical Lymphocytes 2 1 % Toxic Granulation 1+ 1+ Platelet Estimate DECREASED DECREASED (NORMAL) RBC Morphology ABNORMAL ABNORMAL Anisocytosis 1+ 1+ Sodium (137-145) mmol/L Potassium (3.5-5.1) mmol/L Chloride (98-107) mmol/L Carbon Dioxide (22-30) mmol/L Anion Gap (5-15) MEQ/L BUN (9-20) mg/dL Creatinine (0.66-1.25) mg/dL Estimated GFR ML/MIN Glucose (74-106) mg/dL Calcium (8.4-10.2) mg/dL Total Bilirubin (0.2-1.3) mg/dL AST (17-59) U/L ALT (0-50) U/L Alkaline Phosphatase (38-126) U/L Serum Total Protein (6.3-8.2) g/dL Albumin (3.5-5.0) g/dL Stl C. diff Tox B Gene NEGATIVE (NEGATIVE) C.difficile 027-NAP1-B1 PRESUMPTIVE NEGATIVE (NEGATIVE) 11/28/18 Range/Units 05:10 WBC (4.0-10.5) K/mm3 RBC (4.1-5.6) M/mm3 Hgb (12.5-18.0) gm/dl Hct (42-50) % MCV (78-100) fl MCH (26-32) pg MCHC (32-36) g/dl RDW (11.5-14.0) % Plt Count (150-450) K/mm3 MPV (6-9.5) fl Segmented Neutrophils (36.-66.) % Band Neutrophils (0.0-2.0) % Lymphocytes (Manual) (24-44) % Monocytes (Manual) (0.0-12.0) % Atypical Lymphocytes % Toxic Granulation Platelet Estimate (NORMAL) RBC Morphology Anisocytosis Sodium 138 (137-145) mmol/L Potassium 3.4 L (3.5-5.1) mmol/L Chloride 112 H (98-107) mmol/L Carbon Dioxide 19 L (22-30) mmol/L Anion Gap 9.8 (5-15) MEQ/L BUN 15 (9-20) mg/dL Creatinine 0.92 (0.66-1.25) mg/dL Estimated GFR > 60.0 ML/MIN Glucose 83 (74-106) mg/dL Calcium 7.5 L (8.4-10.2) mg/dL Total Bilirubin 1.30 (0.2-1.3) mg/dL AST 62 H (17-59) U/L ALT 70 H (0-50) U/L Alkaline Phosphatase 71 (38-126) U/L Serum Total Protein 4.5 L (6.3-8.2) g/dL Albumin 2.1 L (3.5-5.0) g/dL Stl C. diff Tox B Gene (NEGATIVE) C.difficile 027-NAP1-B1 (NEGATIVE) Assessment/Plan (1) Diarrhea Status: Chronic Assessment & Plan: improved,cultures still pending , Cdiff was negative but retestingdue to volume of stools ongoing, Code(s): R19.7 - DIARRHEA, UNSPECIFIED (2) Neutropenia associated with infection Status: Resolved Assessment & Plan: still present but improved, continue reverse isolation .AM labs ordered. Code(s): D70.3 - NEUTROPENIA DUE TO INFECTION (3) Acute febrile illness Status: Resolved Assessment & Plan: fever on admission 105 rectally etiology unclear.tic born testing in progress Code(s): R50.9 - FEVER, UNSPECIFIED (4) Tick bite Status: Acute Assessment & Plan: patient gives Hx of tic exposure prior to illness Code(s): W57.XXXA - BIT/STUNG BY NONVENOM INSECT & OTH NONVENOM ARTHROPODS, INIT (5) Acute hearing loss of both ears Status: Acute Code(s): H91.93 - UNSPECIFIED HEARING LOSS, BILATERAL
[2018-11-28] MEDS: VITAMIN D PO SCH (09:57)
[2018-11-28] MEDS: Proscar 5 MG PO SCH (09:57)
[2018-11-28] MEDS: SYNTHROID 88 MCG PO SCH (09:57)
[2018-11-28] MEDS: PROTONIX 40 MG IV IV SCH (09:57)
[2018-11-28] MEDS: Multaq 400 MG PO SCH ×2 (09:57→20:59)
[2018-11-28] MEDS: Pepcid 20 MG PO SCH ×2 (09:57→20:59)
[2018-11-28] MEDS: BENTYL 20 MG PO SCH ×4 (09:57→20:59)
[2018-11-28] MEDS: VIBRAMYCIN 100 MG*** 100 MG in Dextrose 5%/Water IV Soln. 100ML PLUS BAG 100 ML IV SCH ×2 (09:58→21:53)
[2018-11-28] MEDS: Neurontin 100 MG PO SCH (09:58)
--- NOTE | 2018-11-28 12:27 | PCM.NOTE ---
Date and Time: 11/28/18 1221 Subjective Assessment: Patient continues to improve,no new c/o. Abdominal discomfort and distension continues. States his sister has a hereditary "blood dz that caused her hands to turn purple" and will call family member to verify.. - Review of Systems Constitutional: Other (is getting stronger per PT. O2 sat post PT was 95% this morning) Ears, Nose, & Throat: Hearing Changes (says getting worse since September this year approx) Respiratory: Other (SOB improved,no cough today) Cardiac: No Symptoms Abdominal/Gastrointestinal: Abdominal Pain (same as yesterday,generalized but appetite is ok) Skin: Other (states was mushroom hunting about 3 weeks ago and did find tics on his face / neck per ) Objective Exam Neurologic Exam: alert, oriented x 3 Skin Exam: normal color, other (looking better ,more pink color in face) Gastrointestinal/Abdomen Exam: soft, tenderness, distention, splenomegaly, other (generalized but no guarding or rebound) Extremity Exam: normal inspection, other ( edema noted today now that ernestina hose off) OBJECTIVE DATA Vital Signs: Vital Signs - 24 hr Temp Pulse Resp BP Pulse Ox 11/28/18 12:09 98.2 F 68 18 119/68 96 11/28/18 08:01 98.4 F 61 20 131/71 95 11/28/18 07:45 71 18 96 11/28/18 04:00 99.0 F 76 17 122/62 94 L 11/27/18 23:51 98.4 F 74 18 122/57 94 L 11/27/18 20:51 73 21 96 11/27/18 20:00 98.6 F 65 20 124/64 96 11/27/18 16:00 86 11/27/18 12:43 86 20 123/68 97 Oxygen-Last 24 hours O2 Percentage 2 Liters = 28% Pain Assessment - Last Documented Pain Intensity 0 Pain Scale Used 0-10 Pain Scale,FLACC Intake and Output: Intake & Output 11/26/18 11/27/18 11/28/18 11/29/18 11:59 11:59 11:59 11:59 Intake Total 4407 4370 2079 Output Total 1350 580 Balance 3057 4370 1499 Weight 92 kg 90.9 kg 92.1 kg Lab Results: Lab Results-Last 24 Hours 11/28/18 11/28/18 11/28/18 Range/Units 02:12 05:10 05:10 WBC 5.7 (4.0-10.5) K/mm3 RBC 3.53 L (4.1-5.6) M/mm3 Hgb 11.5 L (12.5-18.0) gm/dl Hct 33.3 L (42-50) % MCV 94.3 (78-100) fl MCH 32.5 H (26-32) pg MCHC 34.5 (32-36) g/dl RDW 15.2 H (11.5-14.0) % Plt Count 42 L D (150-450) K/mm3 MPV 10.8 H (6-9.5) fl Segmented Neutrophils 33 L (36.-66.) % Band Neutrophils 2 (0.0-2.0) % Lymphocytes (Manual) 56 H (24-44) % Monocytes (Manual) 8 (0.0-12.0) % Atypical Lymphocytes 1 % Toxic Granulation 1+ Platelet Estimate DECREASED (NORMAL) RBC Morphology ABNORMAL Anisocytosis 1+ Sodium 138 (137-145) mmol/L Potassium 3.4 L (3.5-5.1) mmol/L Chloride 112 H (98-107) mmol/L Carbon Dioxide 19 L (22-30) mmol/L Anion Gap 9.8 (5-15) MEQ/L BUN 15 (9-20) mg/dL Creatinine 0.92 (0.66-1.25) mg/dL Estimated GFR > 60.0 ML/MIN Glucose 83 (74-106) mg/dL Calcium 7.5 L (8.4-10.2) mg/dL Total Bilirubin 1.30 (0.2-1.3) mg/dL AST 62 H (17-59) U/L ALT 70 H (0-50) U/L Alkaline Phosphatase 71 (38-126) U/L Serum Total Protein 4.5 L (6.3-8.2) g/dL Albumin 2.1 L (3.5-5.0) g/dL Stl C. diff Tox B Gene NEGATIVE (NEGATIVE) C.difficile 027-NAP1-B1 PRESUMPTIVE NEGATIVE (NEGATIVE) Assessment/Plan (1) Diarrhea Current Visit: Yes Status: Chronic Assessment & Plan: improved Code(s): R19.7 - DIARRHEA, UNSPECIFIED (2) Neutropenia associated with infection Current Visit: Yes Status: Resolved Assessment & Plan: WBC up to 5.7 today from 1.3 on 11/26/18 Code(s): D70.3 - NEUTROPENIA DUE TO INFECTION (3) Proteins serum plasma low Current Visit: Yes Status: Acute Assessment & Plan: work up per PCP,added Boost between meals Code(s): E88.09 - OTH DISORDERS OF PLASMA-PROTEIN METABOLISM, NEC (4) Hypocalcemia Current Visit: Yes Status: Acute Assessment & Plan: added calcium supplement Code(s): E83.51 - HYPOCALCEMIA (5) Splenomegaly Current Visit: Yes Status: Acute Assessment & Plan: Hematology consult pending per PCP Code(s): R16.1 - SPLENOMEGALY, NOT ELSEWHERE CLASSIFIED
[2018-11-28] MEDS: Sodium Chloride 0.9% 1000 ML 1,000 ML IV SCH (14:59)
[2018-11-28] MEDS: Zocor 10MG PO SCH (20:59)
[2018-11-28 22:01] LABS: AMYLASE 47 U/L (30-110); LIPASE 270 U/L (23-300)
[2018-11-29] MEDS: Sodium Chloride 0.9% 1000 ML 1,000 ML IV SCH (03:03)
[2018-11-29 04:41] LABS: Appearance CLEAR (CLEAR); Bilirubin NEGATIVE (NEGATIVE); Blood NEGATIVE Ery/ul (0-5); Glucose NEGATIVE (NEGATIVE); Ketones NEGATIVE (NEGATIVE); Leukocyte Esterase NEGATIVE (NEGATIVE); Mucus SLIGHT /HPF (NEGATIVE); Nitrite NEGATIVE (NEGATIVE); Protein,Urine Dip NEGATIVE (Negative); Specific Gravity 1.006 (1.005-1.025); Urobilinogen NEGATIVE mg/dL (0-1); WBC 0-2 /HPF (0-5)
[2018-11-29 04:42] LABS: Bacteria NONE SEEN /HPF (NEGATIVE)
[2018-11-29 05:44] LABS: Hemoglobin 11.5 gm/dl (12.5-18.0); Mean Cell Volume 94.2 fl (78-100); Mean Corpuscular Hgb Concent. 33.8 g/dl (32-36); Mean Platelet Volume 10.8 fl (6-9.5); Platelet Count 72 K/mm3 (150-450); Red Blood Count 3.61 M/mm3 (4.1-5.6); Red Cell Distribution Width 15.6 % (11.5-14.0); White Blood Count 8.9 K/mm3 (4.0-10.5)
[2018-11-29 05:45] LABS: Mean Corpuscular Hemoglobin 31.8 pg (26-32)
[2018-11-29] MEDS: Merrem 1 GM 1 G in Sodium Chloride 100ML MINI-BAG PLUS 100 ML IV SCH (05:54)
[2018-11-29 05:57] LABS: ALBUMIN 2.3 g/dL (3.5-5.0); ALKALINE PHOSPHATASE 72 U/L (38-126); ANION GAP 9.3 MEQ/L (5-15); BLOOD UREA NITROGEN 20 mg/dL (9-20); CHLORIDE 115 mmol/L (98-107); Calcium 8.1 mg/dL (8.4-10.2); Carbon Dioxide 19 mmol/L (22-30); Creatinine 1 1.04 mg/dL (0.66-1.25); Glucose 91 mg/dL (74-106); Potassium 3.7 mmol/L (3.5-5.1); SGOT/AST 48 U/L (17-59); SGPT/ALT 63 U/L (0-50); SODIUM 140 mmol/L (137-145); Total Protein 4.8 g/dL (6.3-8.2)
[2018-11-29] MEDS: ADVAIR 250-50 DISKUS 14 DOSE IH SCH ×2 (06:23→10:33)
[2018-11-29 08:06] VITALS: BP 133/63; O2SAT 94
[2018-11-29 08:09] LABS: Eosinophil 2 % (0.00-3.0); Lymphocytes 42 % (24-44); Monocyte 20 % (0.0-12.0); Neutrophils 36 % (36.-66.); Total Cells Counted 100
[2018-11-29 08:10] LABS: Platelet Estimate DECREASED (NORMAL)
--- NOTE | 2018-11-29 09:12 | PCM.DCORD ---
- Discharge Discharge Date: 11/29/18 Disposition: Home, Self-Care Condition: Good Prescriptions: New Amox Tr/Potass Clav. 875 mg [Augmentin 875-125 Tablet] 1 each PO BID # 10 tablet Doxycycline Hyclate 100 mg [Vibramycin 100 MG] 100 mg PO BID #10 tab Continue Lovastatin 20 mg PO HS Dronedarone Hydrochloride 400* [Multaq 400 MG] 400 mg PO BID Fluticasone/Vilanterol [Breo Ellipta 200-25 Mcg INH] 1 each IH DAILY Bethanechol Chloride 50 mg PO DAILY Levothyroxine Sodium 88 Mcg [Synthroid 88 Mcg] 88 mcg PO DAILY Ipratropium [place] 0.2 mg IH QID Gabapentin 200 mg PO DAILY Finasteride 5 mg [Proscar 5 MG] 5 mg PO DAILY Famotidine 20 mg [Pepcid 20 MG] 20 mg PO BID Doxazosin Mesylate 1 mg PO DAILY Dicyclomine HCl 20 mg [Bentyl 20 mg] 20 mg PO QID Albuterol Sulfate [Proair Respiclick] 90 mcg IH DAILY Cholecalciferol (Vitamin D3) [D3-2000] 2,000 unit PO DAILY Discontinued Clopidogrel Bisulfate 75 mg [PLAVIX 75 MG Tablet] 75 mg PO DAILY Aspirin EC 81 mg [Ecotrin 81 mg] 81 mg PO DAILY No Action Atenolol 12.5 mg PO DAILY Additional Instructions: Return to clinic or ER if dark black stools; any bleeding; fever >100.4; nausea or vomiting; abdominal pain; dizziness or lightheadedness or any other concerns. Follow up with: KAYKAY CARRASQUILLO [ACTIVE STAFF] - 1 Week ZOHAIB FABIAN [COURTESY STAFF] - 1 Week
[2018-11-29] MEDS: Pepcid 20 MG PO SCH (09:29)
[2018-11-29] MEDS: VIBRAMYCIN 100 MG*** 100 MG in Dextrose 5%/Water IV Soln. 100ML PLUS BAG 100 ML IV SCH (09:29)
[2018-11-29] MEDS: Neurontin 100 MG PO SCH (09:29)
[2018-11-29] MEDS: BENTYL 20 MG PO SCH (09:29)
[2018-11-29] MEDS: Proscar 5 MG PO SCH (09:29)
[2018-11-29] MEDS: Multaq 400 MG PO SCH (09:29)
[2018-11-29] MEDS: SYNTHROID 88 MCG PO SCH (09:29)
[2018-11-29] MEDS: PROTONIX 40 MG IV IV SCH (09:29)
[2018-11-29] MEDS ORDERED: Calcium 500MG W/Vit D Tablet PO SCH (10:00)
[2018-11-29 10:34] VITALS: PULSE 80
[2018-11-30 14:40] LABS: LYME TOTAL WB TOTAL 0.07 index (0.00-0.90)
== END 2018-11-29 10:55 | disposition home or self-care (01) | DRG 872 ==
LOC: ED 16:47 → MED SURG 22:55 → ICU 11-25 08:53 → MED SURG 11-28 07:00
PROVIDERS: ADMIT Internal Medicine; ATTEND Internal Medicine
DX: A41.9 Sepsis, unspecified organism (principal); R53.1 Weakness; R11.2 Nausea with vomiting, unspecified; R42 Dizziness and giddiness; Z79.01 Long term (current) use of anticoagulants; Z79.899 Other long term (current) drug therapy; J44.9 Chronic obstructive pulmonary disease, unspecified; I10 Essential (primary) hypertension; E78.00 Pure hypercholesterolemia, unspecified; E83.51 Hypocalcemia; Z79.82 Long term (current) use of aspirin; R16.1 Splenomegaly, not elsewhere classified; M79.606 Pain in leg, unspecified; M54.9 Dorsalgia, unspecified; D69.6 Thrombocytopenia, unspecified; R94.5 Abnormal results of liver function studies; R19.7 Diarrhea, unspecified; E78.5 Hyperlipidemia, unspecified; D70.9 Neutropenia, unspecified; I25.10 Atherosclerotic heart disease of native coronary artery without angina pectoris; W57.XXXA Bitten or stung by nonvenomous insect and other nonvenomous arthropods, initial encounter; H91.93 Unspecified hearing loss, bilateral; R10.84 Generalized abdominal pain
CPT/HCPCS: 36000; 36415; 51702; 71045; 74176; 80053; 80074; 81001; 82150; 82550; 83605; 83690; 84484; 85025; 85610; 86617; 86618; 86701; 86702; 87040; 87086; 87389; 87493; 87798; 93005; 94640; 94760; 94762; 96360; 96361; 96365; 99285; 99291; 97110-GP; A9270-GY

== ENCOUNTER 2019-01-03 11:40 | Observation (INO) | payer MEDICARE ==
[2019-01-03] MEDS ORDERED: PROTONIX 40 MG IV IV ONE ×2 (12:10→12:28)
[2019-01-03] MEDS ORDERED: BABY ASPIRIN 81 MG CHEW PO ONE (12:16)
[2019-01-03] MEDS ORDERED: NITRO-BID 2% UD PACKETS TOP ONE (12:16)
[2019-01-03] MEDS ORDERED: Nitrostat 0.4 MG (ED) SL ONE ×2 (12:16→12:27)
--- NOTE | 2019-01-03 12:24 | ERPHSYRPT ---
- History of Present Illness Time Seen by Provider: 01/03/19 12:12 Historian: patient Patient Subjective Stated Complaint: pt sent here from drs office today for n/v/ d and chest pain since last night, no cough or fever, Triage Nursing Assessment: pt walked in, resp easy,chest clear, abd soft,no edema noted, moves all ext well Physician History: PATIENT WITH A HISTORY OF COPD, HYPERTENSION, CORONARY ARTERY DISEASE, CORONARY STENT INSERTION X 2 COMPLAINS OF INTERMITTENT EMESIS AND WATERY DIARRHEA X 24 HOURS. HAS INTERMITTENT SUBSTERNAL CHEST PAINS SINCE LAST NIGHT PAIN SCALE 5.10 HAS OCCASIONAL DYSPNEA, DENIES RADIATION OF PAIN TO NECK ARMS, JAW OR BACK. Timing/Duration: yesterday Activities at Onset: none Quality: sharpness, tightness Location: substernal Chest Pain Radiation: no radiation Severity of Pain-Max: moderate Severity of Pain-Current: moderate Associated Symptoms: nausea, vomiting, other (DIARRHEA) Prior Chest Pain/Cardiac Workup: cardiac cath Nitro Today/Relief: 0.4 mg x 1, provided by ED Aspirin Treatment Today: 81 mg x 4, provided by ED Allergies/Adverse Reactions: levofloxacin Allergy (Intermediate, Verified 01/03/19 11:48) Hives Home Medications: Atenolol 12.5 mg PO DAILY 08/02/16 [History] Lovastatin 20 mg PO HS 08/02/16 [History] Dronedarone Hydrochloride 400* [Multaq 400 MG] 400 mg PO BID 09/29/16 [ History] Fluticasone/Vilanterol [Breo Ellipta 200-25 Mcg INH] 1 each IH DAILY 03/10/17 [ History] Albuterol Sulfate [Proair Respiclick] 90 mcg IH DAILY 11/25/18 [History] Bethanechol Chloride 50 mg PO DAILY 11/25/18 [History] Cholecalciferol (Vitamin D3) [D3-2000] 2,000 unit PO DAILY 11/25/18 [History] Dicyclomine HCl 20 mg [Bentyl 20 mg] 20 mg PO QID 11/25/18 [History] Doxazosin Mesylate 1 mg PO DAILY 11/25/18 [History] Famotidine 20 mg [Pepcid 20 MG] 20 mg PO BID 11/25/18 [History] Finasteride 5 mg [Proscar 5 MG] 5 mg PO DAILY 11/25/18 [History] Gabapentin 200 mg PO DAILY 11/25/18 [History] Ipratropium [place] 0.2 mg IH QID 11/25/18 [History] Levothyroxine Sodium 88 Mcg [Synthroid 88 Mcg] 88 mcg PO DAILY 11/25/18 [ History] Clopidogrel Bisulfate [Clopidogrel] 75 mg DAILY 01/03/19 [History] Hx Tetanus, Diphtheria Vaccination/Date Given: Yes Hx Influenza Vaccination/Date Given: Yes Hx Pneumococcal Vaccination/Date Given: Yes Immunizations Up to Date: Yes - Review of Systems Constitutional: No Fever, No Chills Eyes: No Symptoms Ears, Nose, & Throat: No Symptoms Respiratory: No Cough, No Dyspnea Cardiac: Chest Pain, No Edema, No Syncope Abdominal/Gastrointestinal: Abdominal Pain, Nausea, Vomiting, No Diarrhea Genitourinary Symptoms: No Symptoms, No Dysuria Musculoskeletal: No Symptoms, No Back Pain, No Neck Pain Skin: No Symptoms, No Rash Neurological: No Dizziness, No Focal Weakness, No Sensory Changes Psychological: No Symptoms Endocrine: No Symptoms All Other Systems: Reviewed and Negative - Past Medical History Pertinent Past Medical History: Yes Neurological History: No Pertinent History ENT History: Cataracts Cardiac History: Angina, Coronary Artery Disease, High Cholesterol, Hypertension Respiratory History: COPD, Pneumonia Endocrine Medical History: No Pertinent History Musculoskeletal History: Arthritis GI Medical History: GERD, Hemorrhoids History: No Pertinent History Psycho-Social History: No Pertinent History Male Reproductive Disorders: Prostate Problems - Past Surgical History Past Surgical History: Yes Neuro Surgical History: No Pertinent History Cardiac: Cardiac Catheterization, Cardiac Stent, Other Respiratory: No Pertinent History Gastrointestinal: Cholecystectomy Genitourinary: No Pertinent History Musculoskeletal: No Pertinent History Male Surgical History: No Pertinent History Other Surgical History: heart cath with 2 stents aug 2016. Apr 2016 pt had biopsy of mediastinum lymphnodes - Social History Smoking Status: Never smoker Exposure to second hand smoke: No Alcohol Use: None Drug Use: none Patient Lives Alone: No Significant Family History: no pertinent family hx - Nursing Vital Signs Nursing Vital Signs: Initial Vital Signs Pulse Rate 60 01/03/19 11:41 Pain Scale Pain Intensity 3 - Physical Exam General Appearance: no apparent distress, alert Eye Exam: PERRL/EOMI, eyes nml inspection Ears, Nose, Throat Exam: normal ENT inspection, moist mucous membranes Neck Exam: normal inspection, non-tender, supple, full range of motion Respiratory Exam: normal breath sounds, lungs clear, No respiratory distress Cardiovascular Exam: regular rate/rhythm, normal heart sounds Gastrointestinal/Abdomen Exam: soft, normal bowel sounds, tenderness ( TENDERNESS PERIUMBILICAL, NO GUARDING OR REBOUND TENDERNESS), No mass Back Exam: normal inspection, No CVA tenderness, No vertebral tenderness Extremity Exam: normal inspection, normal range of motion Neurologic Exam: alert, oriented x 3, cooperative, normal mood/affect, sensation nml, No motor deficits Skin Exam: normal color, warm, dry SpO2 Interpretation: normal SpO2: 96 - Course EKG Interpreted by Me: RATE, Sinus Rhythm (RATE 62 OCCASIONAL PVC), NORMAL AXIS - Radiology Exams Chest X-ray Interpretation: Discussed w/ radiologist (NEW LEFT BASE HAZY INFILTRATE VS ATELECTASIS) - CT Exams Abdomen/Pelvis CT Interpretation: Discussed w/radiologist (STABLE DIVERTICULOSIS, NEW MILD FLUID DISTENDED COLON FAVORING DIARRHEA) Ordered Tests: Active Orders 24 hr Category Date Time Status Certified Medical Coding Specialist STAT Care 01/03/19 12:16 Active EKG-ER Only STAT Care 01/03/19 12:10 Active IV Insertion STAT Care 01/03/19 12:10 Active Oxygen-ED Only Nasal Cannula 2 lpm Care 01/03/19 12:16 Active ABDOMEN AND PELVIS W CONTRAST [CT] Stat Exams 01/03/19 13:11 Completed CHEST 1 VIEW (PORTABLE) Stat Exams 01/03/19 12:15 Completed BLOOD CULTURE Stat Lab 01/03/19 12:40 Received CBC W DIFF Stat Lab 01/03/19 12:10 Completed CMP Stat Lab 01/03/19 12:10 Completed LIPASE Stat Lab 01/03/19 12:10 Completed Lactic Acid Stat Lab 01/03/19 12:19 Completed PROTIME WITH INR Stat Lab 01/03/19 12:10 Completed TROPONIN Q3H Lab 01/03/19 12:15 Completed TROPONIN Q3H Lab 01/03/19 15:15 Ordered TROPONIN Q3H Lab 01/03/19 18:15 Ordered TROPONIN Q3H Lab 01/03/19 21:15 Ordered TROPONIN Q3H Lab 01/04/19 00:15 Ordered UA W/RFX UR CULTURE Stat Lab 01/03/19 14:01 Completed Medication Summary Generic Name Dose Route Start Last Admin Trade Name Tay PRN Reason Stop Dose Admin Sodium Chloride 1,000 mls @ 100 mls/hr 01/03/19 12:15 01/03/19 12:32 Sodium Chloride 0.9% 1000 Ml IV 02/02/19 12:14 100 mls/hr .Q10H ROHIT Administration Discontinued Medications Generic Name Dose Route Start Last Admin Trade Name Tay PRN Reason Stop Dose Admin Aspirin 324 mg 01/03/19 12:16 01/03/19 12:33 Baby Aspirin 81 Mg Chew PO 01/03/19 12:17 324 mg STAT ONE Administration Aspirin Confirm 01/03/19 12:28 Baby Aspirin 81 Mg Chew Administered 01/03/19 12:29 Dose 324 mg .ROUTE .STK-MED ONE Ceftriaxone Sodium/Dextrose 1 g in 50 mls @ 100 mls/hr 01/03/19 13:19 14:50 Rocephin 1 Gm-D5w 50 Ml Bag IV 01/03/19 13:48 Infused STAT STA Infusion Azithromycin 500 mg in 250 mls @ 250 mls/hr 01/03/19 13:20 01/03/19 14:19 Zithromax 500 Mg/ 250 Ml Nacl Premix IV 01/03/19 14:19 250 mls/hr STAT STA 250 mls/hr Administration Azithromycin Confirm 01/03/19 14:15 Zithromax 500 Mg/ 250 Ml Nacl Premix Administered 01/03/19 14:16 Dose 500 mg in 250 mls @ ud IV .STK-MED ONE Ceftriaxone Sodium/Dextrose Confirm 01/03/19 14:15 Rocephin 1 Gm-D5w 50 Ml Bag Administered 01/03/19 14:16 Dose 1 g in 50 mls @ ud IV .STK-MED ONE Nitroglycerin 0.4 mg 01/03/19 12:16 01/03/19 12:34 Nitrostat 0.4 Mg (Ed) SL 01/03/19 12:17 0.4 mg STAT ONE Administration Nitroglycerin 1 gm 01/03/19 12:16 01/03/19 12:33 Nitro-Bid 2% Ud Packets TOP 01/03/19 12:17 1 gm STAT ONE Administration Nitroglycerin Confirm 01/03/19 12:27 Nitro-Bid 2% Ud Packets Administered 01/03/19 12:28 Dose 1 gm .ROUTE .STK-MED ONE Nitroglycerin Confirm 01/03/19 12:27 Nitrostat 0.4 Mg (Ed) Administered 01/03/19 12:28 Dose 0.4 mg SL .STK-MED ONE Pantoprazole Sodium 40 mg 01/03/19 12:10 01/03/19 12:32 Protonix 40 Mg Iv IV 01/03/19 12:11 40 mg STAT ONE Administration Pantoprazole Sodium Confirm 01/03/19 12:28 Protonix 40 Mg Iv Administered 01/03/19 12:29 Dose 40 mg IV .STK-MED ONE Lab/Rad Data: Laboratory Result Diagrams 01/03/19 12:10 01/03/19 12:10 Laboratory Results 01/03/19 01/03/19 01/03/19 Range/Units 14:01 12:19 12:15 WBC (4.0-10.5) K/mm3 RBC (4.1-5.6) M/mm3 Hgb (12.5-18.0) gm/dl Hct (42-50) % MCV (78-100) fl MCH (26-32) pg MCHC (32-36) g/dl RDW (11.5-14.0) % Plt Count (150-450) K/mm3 MPV (6-9.5) fl Gran % (36.0-66.0) % Eos # (Auto) (0-0.5) Absolute Lymphs (auto) (1.0-4.6) Absolute Monos (auto) (0.0-1.3) Lymphocytes % (24.0-44.0) % Monocytes % (0.0-12.0) % Eosinophils % (0.00-5.0) % Basophils % (0.0-0.4) % Absolute Granulocytes (1.4-6.9) Basophils # (0-0.4) PT (8.83-12.87) SECONDS INR (0.8-3.0) Sodium (137-145) mmol/L Potassium (3.5-5.1) mmol/L Chloride (98-107) mmol/L Carbon Dioxide (22-30) mmol/L Anion Gap (5-15) MEQ/L BUN (9-20) mg/dL Creatinine (0.66-1.25) mg/dL Estimated GFR ML/MIN Glucose (74-106) mg/dL Lactic Acid 1.3 (0.4-2.0) Calcium (8.4-10.2) mg/dL Total Bilirubin (0.2-1.3) mg/dL AST (17-59) U/L ALT (0-50) U/L Alkaline Phosphatase (38-126) U/L Troponin I < 0.012 (0.000-0.034) ng/mL Serum Total Protein (6.3-8.2) g/dL Albumin (3.5-5.0) g/dL Lipase (23-300) U/L Urine Color YELLOW (YELLOW) Urine Appearance CLEAR (CLEAR) Urine pH 5.0 (5-6) Ur Specific [place] 1.048 (1.005-1.025) Urine Protein NEGATIVE (Negative) Urine Ketones NEGATIVE (NEGATIVE) Urine Blood NEGATIVE (0-5) Giovanni/ul Urine Nitrite NEGATIVE (NEGATIVE) Urine Bilirubin NEGATIVE (NEGATIVE) Urine Urobilinogen NEGATIVE (0-1) mg/dL Ur Leukocyte Esterase NEGATIVE (NEGATIVE) Urine WBC (Auto) 0-2 (0-5) /HPF Urine RBC (Auto) NONE (0-2) /HPF U Epithel Cells (Auto) RARE (FEW) /HPF Urine Bacteria (Auto) NONE (NEGATIVE) /HPF Urine Mucus (Auto) MODERATE (NEGATIVE) /HPF Urine Culture Reflexed NO (NO) Urine Glucose NEGATIVE (NEGATIVE) mg/dL 01/03/19 01/03/19 01/03/19 Range/Units 12:10 12:10 12:10 WBC 10.9 H (4.0-10.5) K/mm3 RBC 4.84 (4.1-5.6) M/mm3 Hgb 15.6 (12.5-18.0) gm/dl Hct 45.0 (42-50) % MCV 93.0 (78-100) fl MCH 32.2 H (26-32) pg MCHC 34.7 (32-36) g/dl RDW 14.6 H (11.5-14.0) % Plt Count 166 (150-450) K/mm3 MPV 9.7 H (6-9.5) fl Gran % 54.0 (36.0-66.0) % Eos # (Auto) 0.49 (0-0.5) Absolute Lymphs (auto) 3.85 (1.0-4.6) Absolute Monos (auto) 0.66 (0.0-1.3) Lymphocytes % 35.2 (24.0-44.0) % Monocytes % 6.0 (0.0-12.0) % Eosinophils % 4.5 (0.00-5.0) % Basophils % 0.3 (0.0-0.4) % Absolute Granulocytes 5.91 (1.4-6.9) Basophils # 0.03 (0-0.4) PT 11.5 (8.83-12.87) SECONDS INR 0.99 (0.8-3.0) Sodium 144 (137-145) mmol/L Potassium 3.7 (3.5-5.1) mmol/L Chloride 110 H (98-107) mmol/L Carbon Dioxide 22 (22-30) mmol/L Anion Gap 14.8 (5-15) MEQ/L BUN 13 (9-20) mg/dL Creatinine 1.05 (0.66-1.25) mg/dL Estimated GFR > 60.0 ML/MIN Glucose 106 (74-106) mg/dL Lactic Acid (0.4-2.0) Calcium 9.2 (8.4-10.2) mg/dL Total Bilirubin 1.50 H (0.2-1.3) mg/dL AST 35 (17-59) U/L ALT 24 (0-50) U/L Alkaline Phosphatase 65 (38-126) U/L Troponin I (0.000-0.034) ng/mL Serum Total Protein 7.2 (6.3-8.2) g/dL Albumin 4.2 (3.5-5.0) g/dL Lipase 186 (23-300) U/L Urine Color (YELLOW) Urine Appearance (CLEAR) Urine pH (5-6) Ur Specific [place] (1.005-1.025) Urine Protein (Negative) Urine Ketones (NEGATIVE) Urine Blood (0-5) Giovanni/ul Urine Nitrite (NEGATIVE) Urine Bilirubin (NEGATIVE) Urine Urobilinogen (0-1) mg/dL Ur Leukocyte Esterase (NEGATIVE) Urine WBC (Auto) (0-5) /HPF Urine RBC (Auto) (0-2) /HPF U Epithel Cells (Auto) (FEW) /HPF Urine Bacteria (Auto) (NEGATIVE) /HPF Urine Mucus (Auto) (NEGATIVE) /HPF Urine Culture Reflexed (NO) Urine Glucose (NEGATIVE) mg/dL - Progress Progress Note: 01/03/19 15:06 NITROGLYCERIN 0.4MG SL, APPLICATION OF NITROPASTE 1" ANTERIOR CHEST WALL, COMPLETE PAIN RELIEF Discussed with .: Other (DISCUSSED WITH DR COLE AT 1400 FOR OBS) - Departure Departure Disposition: Observation Clinical Impression: ACUTE CHEST PAIN., ACUTE EMESIS/DIARRHEA, PNEUMONIA Condition: Stable Critical Care Time: No Referrals: NATALEE POTTS NP [Primary Care Provider] -
[2019-01-03] MEDS ORDERED: NITRO-BID 2% UD PACKETS ONE (12:27)
[2019-01-03] MEDS ORDERED: BABY ASPIRIN 81 MG CHEW ONE (12:28)
[2019-01-03] MEDS: Sodium Chloride 0.9% 1000 ML 1,000 ML IV SCH ×2 (12:32→23:03)
[2019-01-03 12:36] LABS: ALBUMIN 4.2 g/dL (3.5-5.0); ALKALINE PHOSPHATASE 65 U/L (38-126); ANION GAP 14.8 MEQ/L (5-15); BLOOD UREA NITROGEN 13 mg/dL (9-20); CHLORIDE 110 mmol/L (98-107); Calcium 9.2 mg/dL (8.4-10.2); Carbon Dioxide 22 mmol/L (22-30); Creatinine 1 1.05 mg/dL (0.66-1.25); Glucose 106 mg/dL (74-106); LIPASE 186 U/L (23-300); Potassium 3.7 mmol/L (3.5-5.1); SGOT/AST 35 U/L (17-59); SGPT/ALT 24 U/L (0-50); SODIUM 144 mmol/L (137-145); Total Protein 7.2 g/dL (6.3-8.2)
[2019-01-03 12:39] LABS: BASOPHIL % 0.3 % (0.0-0.4); Basophil (Absolute #) 0.03 (0-0.4); Eosinophil % 4.5 % (0.00-5.0); Eosinophil (Absolute #) 0.49 (0-0.5); Granulocyte Absolute (ANC) 5.91 (1.4-6.9); Hemoglobin 15.6 gm/dl (12.5-18.0); Lymphocyte (Absolute #) 3.85 (1.0-4.6); Lymphocytes % 35.2 % (24.0-44.0); Mean Corpuscular Hemoglobin 32.2 pg (26-32); Mean Corpuscular Hgb Concent. 34.7 g/dl (32-36); Mean Platelet Volume 9.7 fl (6-9.5); Monocyte (Absolute #) 0.66 (0.0-1.3); Platelet Count 166 K/mm3 (150-450); Red Blood Count 4.84 M/mm3 (4.1-5.6); Red Cell Distribution Width 14.6 % (11.5-14.0); White Blood Count 10.9 K/mm3 (4.0-10.5)
[2019-01-03 12:47] LABS: INR 0.99 (0.8-3.0); PROTIME 11.5 SECONDS (8.83-12.87)
--- NOTE | 2019-01-03 12:55 | XRAY ---
Indication: Cough and chest pain. Comparison: November 25, 2018. Portable chest demonstrates new left base hazy infiltrate versus atelectasis. Remaining heart and lungs unremarkable.
[2019-01-03] MEDS ORDERED: ROCEPHIN 1 Gm-D5w 50 ml Bag** 1 G/50 ML IVPB IV STA (13:19)
[2019-01-03] MEDS ORDERED: Zithromax 500 MG/ 250 ML NaCl Premix 500 MG/250 ML IVPB IV STA (13:20)
--- NOTE | 2019-01-03 13:38 | XRAY ---
Indication: Lower chest/upper abdomen pain. Nausea, vomiting, diarrhea. Multiple contiguous axial images obtained through the abdomen and pelvis using 80 cc Isovue 370 contrast only. Comparison: November 24, 2018. Lung bases again demonstrates bibasilar dependent atelectasis and left base calcified granuloma. No infiltrate or effusion. Heart is not enlarged. Noncontrasted stomach and bowel loops appear nonobstructed. Normal appendix. New mildly fluid distended colon throughout favoring diarrhea. Stable minimal sigmoid diverticulosis, 13.1 cm splenomegaly, calcified splenic granulomas, mild fatty liver, cholecystectomy, and small fatty right inguinal hernia. No free fluid/air. Remaining liver, pancreas, spleen, adrenal glands, kidneys, ureters, and bladder appear unremarkable. Stable mild aortoiliac calcifications. No AAA or pathologic retroperitoneal lymphadenopathy. Osseous structures again demonstrate minimal degenerative changes throughout the spine. Impression: 1. New mild fluid distended colon favoring diarrhea. 2. 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 3. Remaining CT abdomen/pelvis with contrast exam is negative. CT DI 21.89
[2019-01-03] MEDS ORDERED: ROCEPHIN 1 Gm-D5w 50 ml Bag** 1 G/50 ML IVPB IV ONE (14:15)
[2019-01-03] MEDS ORDERED: Zithromax 500 MG/ 250 ML NaCl Premix 500 MG/250 ML IVPB IV ONE (14:15)
[2019-01-03 14:26] LABS: Appearance CLEAR (CLEAR); Bilirubin NEGATIVE (NEGATIVE); Blood NEGATIVE Ery/ul (0-5); Epithelial Cells RARE /HPF (FEW); Glucose NEGATIVE (NEGATIVE); Ketones NEGATIVE (NEGATIVE); Leukocyte Esterase NEGATIVE (NEGATIVE); Mucus MODERATE /HPF (NEGATIVE); Nitrite NEGATIVE (NEGATIVE); Protein,Urine Dip NEGATIVE (Negative); Specific Gravity 1.048 (1.005-1.025); Urobilinogen NEGATIVE mg/dL (0-1); WBC 0-2 /HPF (0-5)
[2019-01-03] MEDS ORDERED: MILK OF MAGNESIA 30 ML PO PRN (15:09)
[2019-01-03] MEDS ORDERED: Senokot-S Tablet PO PRN (15:09)
[2019-01-03] MEDS ORDERED: Zofran 4 MG/2 ML VIAL IV PRN (15:09)
[2019-01-03] MEDS ORDERED: TYLENOL 325 MG PO PRN (15:09)
[2019-01-03] MEDS ORDERED: MAALOX ES 30 ML UNIT DOSE PO PRN (15:09)
[2019-01-03] MEDS: BENTYL 20 MG PO SCH ×2 (17:28→21:05)
[2019-01-03] MEDS ORDERED: Atrovent 0.5MG NEBULE IH SCH (19:00)
[2019-01-03] MEDS: Advair Hfa 115/21 Common canister IH SCH (19:40)
[2019-01-03] MEDS: DUONEB 0.5-3 MG/3 ml Neb IH PRN (19:40)
[2019-01-03] MEDS: CARDURA 2 MG PO SCH (21:02)
[2019-01-03] MEDS: Neurontin 100 MG PO SCH (21:04)
[2019-01-03] MEDS: NITRO-BID 2% UD PACKETS TOP SCH (21:04)
[2019-01-03] MEDS: Multaq 400 MG PO SCH (21:05)
[2019-01-03] MEDS: Pepcid 20 MG PO SCH (21:05)
[2019-01-03] MEDS: Zocor 10MG PO SCH (21:09)
[2019-01-03] MEDS: Proscar 5 MG PO SCH (21:15)
[2019-01-03] MEDS: BETHANECHOL CHLORIDE PO SCH (21:27)
[2019-01-03] MEDS ORDERED: NON-FORMULARY ITEM (Doxazosin Mesylate [Doxazosin Mesylate] 1 MG) PO SCH (22:00)
[2019-01-03] MEDS ORDERED: NON-FORMULARY ITEM (Lovastatin [Lovastatin] 20 MG) PO SCH (22:00)
[2019-01-04] MEDS: NITRO-BID 2% UD PACKETS TOP SCH ×3 (05:30→22:10)
[2019-01-04 06:27] LABS: Risk Ratio 5.2
[2019-01-04] MEDS: DUONEB 0.5-3 MG/3 ml Neb IH PRN ×2 (07:24→19:33)
[2019-01-04] MEDS: Advair Hfa 115/21 Common canister IH SCH ×2 (07:24→19:34)
--- NOTE | 2019-01-04 09:16 | PCM.HP ---
History of Present Illness - Chief Complaint Chief Complaint: CP R/O NC History of Present Illness: is a 69 year old male pt of Dr. Knight with COPD, CAD, HTN, and hyperlipidemia who was admitted through ER with chest pain. He had been feeling poorly for about a week, then for the past 2 d started having vomiting and diarrhea. He was having 10/10 epigastric pain as well. Pt then started having 8/10 substernal sharp chest pain (without SOB or palpitations, with diaphoresis) and came to ER. His EKG appears to show sinus bradycardia with intermittent PVCs, no ST changes. His troponins have been negative x 5. CXR showed LLL infiltrate vs atelectasis. Pt has a little cough since admission. He was placed on IV rocephin and zithromax. This morning he is feeling better than at admission but still having diarrhea. Has been tolerating PO. - Review of Systems Constitutional: No Fever Respiratory: Cough Cardiac: Chest Pain Abdominal/Gastrointestinal: Abdominal Pain, Nausea, Vomiting, Diarrhea Psychological: No Anxiety, No Depression, No Suicidal Ideations All Other Systems: Reviewed and Negative Medications & Allergies Home Medications: Home Medication List Atenolol 12.5 mg PO HS 08/02/16 [History Confirmed 01/03/19] Lovastatin 20 mg PO HS 08/02/16 [History Confirmed 01/03/19] Dronedarone Hydrochloride 400* [Multaq 400 MG] 400 mg PO BID 09/29/16 [ History Confirmed 01/03/19] Fluticasone/Vilanterol [Breo Ellipta 200-25 Mcg INH] 1 each IH DAILY 03/10/17 [ History Confirmed 01/03/19] Albuterol Sulfate [Proair Respiclick] 90 mcg IH DAILY 11/25/18 [History Confirmed 01/03/19] Bethanechol Chloride 50 mg PO HS 11/25/18 [History Confirmed 01/03/19] Cholecalciferol (Vitamin D3) [D3-2000] 2,000 unit PO HS 11/25/18 [History Confirmed 01/03/19] Dicyclomine HCl 20 mg [Bentyl 20 mg] 20 mg PO QID 11/25/18 [History Confirmed 01/03/19] Doxazosin Mesylate 1 mg PO HS 11/25/18 [History Confirmed 01/03/19] Famotidine 20 mg [Pepcid 20 MG] 20 mg PO BID 11/25/18 [History Confirmed 01/03/19] Finasteride 5 mg [Proscar 5 MG] 5 mg PO HS 11/25/18 [History Confirmed 05/14] Gabapentin 200 mg PO HS 11/25/18 [History Confirmed 01/03/19] Ipratropium [place] 0.2 mg IH QID 11/25/18 [History Confirmed 01/03/19] Levothyroxine Sodium 88 Mcg [Synthroid 88 Mcg] 88 mcg PO DAILY 11/25/18 [ History Confirmed 01/03/19] Clopidogrel Bisulfate [Clopidogrel] 75 mg HS 01/03/19 [History Confirmed ] Allergies/Adverse Reactions: Allergies Allergy/AdvReac Type Severity Reaction Status Date / Time levofloxacin Allergy Intermediate Hives Verified 01/03/19 11:48 - Past Medical History Past Medical History: Yes Neurological History: No Pertinent History ENT History: Cataracts Cardiac History: Angina, Coronary Artery Disease, High Cholesterol, Hypertension Respiratory History: COPD, Pneumonia Endocrine Medical History: No Pertinent History Musculoskelatal History: Arthritis GI Medical History: GERD, Hemorrhoids History: No Pertinent History Pyscho-Social History: No Pertinent History Male Reproductive Disorders: Prostate Problems - Past Surgical History Past Surgical History: Yes Neuro Surgical History: No Pertinent History Cardiac History: Cardiac Catheterization, Cardiac Stent, Other Respiratory Surgery: No Pertinent History GI Surgical History: Cholecystectomy Genitourinary Surgical Hx: No Pertinent History Musculskeletal Surgical Hx: No Pertinent History Male Surgical History: No Pertinent History Other Surgical History: heart cath with 2 stents aug 2016. Apr 2016 pt had biopsy of mediastinum lymphnodes - Social History Smoking Status: Never smoker Exposure to second hand smoke: No Alcohol: None Drug Use: none Significant Family History: no pertinent family hx - Physical Exam Vital Signs: Vital Signs - 24 hr Temp Pulse Pulse Resp BP Pulse Ox 01/04/19 08:00 16 01/04/19 07:27 62 16 100 01/04/19 07:12 98.1 F 58 L 18 116/61 95 01/04/19 04:00 97.5 F 58 L 16 97/56 92 L 01/03/19 20:00 97.6 F 59 L 18 139/63 94 L 01/03/19 19:56 58 L 16 93 L 01/03/19 16:35 53 L 16 94 L 01/03/19 15:53 97.6 F 63 18 147/70 96 01/03/19 15:08 96 01/03/19 14:28 63 15 125/74 01/03/19 12:43 77 18 138/78 97 01/03/19 11:41 60 General Appearance: no apparent distress, alert Neurologic Exam: oriented x 3, cooperative Eye Exam: eyes nml inspection Ears, Nose, Throat Exam: moist mucous membranes Neck Exam: normal inspection, non-tender, No lymphadenopathy Respiratory Exam: normal breath sounds, lungs clear, No crackles/rales, No rhonchi, No wheezing Cardiovascular Exam: regular rate/rhythm, normal heart sounds, No murmur Gastrointestinal/Abdomen Exam: soft, No normal bowel sounds (hyperactive), No tenderness, No distention, No mass, No guarding, No rebound Back Exam: normal inspection, No CVA tenderness, No rash Extremity Exam: normal inspection, No pedal edema, No swelling Skin Exam: normal color, warm, dry, No rash Results - Labs Lab/Micro Results: Lab Results-Last 24 Hours 01/03/19 01/03/19 01/03/19 Range/Units 12:10 12:10 12:10 WBC 10.9 H (4.0-10.5) K/mm3 RBC 4.84 (4.1-5.6) M/mm3 Hgb 15.6 (12.5-18.0) gm/dl Hct 45.0 (42-50) % MCV 93.0 (78-100) fl MCH 32.2 H (26-32) pg MCHC 34.7 (32-36) g/dl RDW 14.6 H (11.5-14.0) % Plt Count 166 (150-450) K/mm3 MPV 9.7 H (6-9.5) fl Gran % 54.0 (36.0-66.0) % Eos # (Auto) 0.49 (0-0.5) Absolute Lymphs (auto) 3.85 (1.0-4.6) Absolute Monos (auto) 0.66 (0.0-1.3) Lymphocytes % 35.2 (24.0-44.0) % Monocytes % 6.0 (0.0-12.0) % Eosinophils % 4.5 (0.00-5.0) % Basophils % 0.3 (0.0-0.4) % Absolute Granulocytes 5.91 (1.4-6.9) Basophils # 0.03 (0-0.4) PT 11.5 (8.83-12.87) SECONDS INR 0.99 (0.8-3.0) Sodium 144 (137-145) mmol/L Potassium 3.7 (3.5-5.1) mmol/L Chloride 110 H (98-107) mmol/L Carbon Dioxide 22 (22-30) mmol/L Anion Gap 14.8 (5-15) MEQ/L BUN 13 (9-20) mg/dL Creatinine 1.05 (0.66-1.25) mg/dL Estimated GFR > 60.0 ML/MIN Glucose 106 (74-106) mg/dL Lactic Acid (0.4-2.0) Calcium 9.2 (8.4-10.2) mg/dL Total Bilirubin 1.50 H (0.2-1.3) mg/dL AST 35 (17-59) U/L ALT 24 (0-50) U/L Alkaline Phosphatase 65 (38-126) U/L Troponin I (0.000-0.034) ng/mL Serum Total Protein 7.2 (6.3-8.2) g/dL Albumin 4.2 (3.5-5.0) g/dL Triglycerides (30-150) mg/dL Cholesterol (50-200) mg/dL LDL Cholesterol (30-100) mg/dL HDL Cholesterol (40-60) mg/dL Heart Disease Risk Ratio Lipase 186 (23-300) U/L Urine Color (YELLOW) Urine Appearance (CLEAR) Urine pH (5-6) Ur Specific [place] (1.005-1.025) Urine Protein (Negative) Urine Ketones (NEGATIVE) Urine Blood (0-5) Giovanni/ul Urine Nitrite (NEGATIVE) Urine Bilirubin (NEGATIVE) Urine Urobilinogen (0-1) mg/dL Ur Leukocyte Esterase (NEGATIVE) Urine WBC (Auto) (0-5) /HPF Urine RBC (Auto) (0-2) /HPF U Epithel Cells (Auto) (FEW) /HPF Urine Bacteria (Auto) (NEGATIVE) /HPF Urine Mucus (Auto) (NEGATIVE) /HPF Urine Culture Reflexed (NO) Urine Glucose (NEGATIVE) mg/dL 01/03/19 01/03/19 01/03/19 Range/Units 12:15 12:19 14:01 WBC (4.0-10.5) K/mm3 RBC (4.1-5.6) M/mm3 Hgb (12.5-18.0) gm/dl Hct (42-50) % MCV (78-100) fl MCH (26-32) pg MCHC (32-36) g/dl RDW (11.5-14.0) % Plt Count (150-450) K/mm3 MPV (6-9.5) fl Gran % (36.0-66.0) % Eos # (Auto) (0-0.5) Absolute Lymphs (auto) (1.0-4.6) Absolute Monos (auto) (0.0-1.3) Lymphocytes % (24.0-44.0) % Monocytes % (0.0-12.0) % Eosinophils % (0.00-5.0) % Basophils % (0.0-0.4) % Absolute Granulocytes (1.4-6.9) Basophils # (0-0.4) PT (8.83-12.87) SECONDS INR (0.8-3.0) Sodium (137-145) mmol/L Potassium (3.5-5.1) mmol/L Chloride (98-107) mmol/L Carbon Dioxide (22-30) mmol/L Anion Gap (5-15) MEQ/L BUN (9-20) mg/dL Creatinine (0.66-1.25) mg/dL Estimated GFR ML/MIN Glucose (74-106) mg/dL Lactic Acid 1.3 (0.4-2.0) Calcium (8.4-10.2) mg/dL Total Bilirubin (0.2-1.3) mg/dL AST (17-59) U/L ALT (0-50) U/L Alkaline Phosphatase (38-126) U/L Troponin I < 0.012 (0.000-0.034) ng/mL Serum Total Protein (6.3-8.2) g/dL Albumin (3.5-5.0) g/dL Triglycerides (30-150) mg/dL Cholesterol (50-200) mg/dL LDL Cholesterol (30-100) mg/dL HDL Cholesterol (40-60) mg/dL Heart Disease Risk Ratio Lipase (23-300) U/L Urine Color YELLOW (YELLOW) Urine Appearance CLEAR (CLEAR) Urine pH 5.0 (5-6) Ur Specific [place] 1.048 (1.005-1.025) Urine Protein NEGATIVE (Negative) Urine Ketones NEGATIVE (NEGATIVE) Urine Blood NEGATIVE (0-5) Giovanni/ul Urine Nitrite NEGATIVE (NEGATIVE) Urine Bilirubin NEGATIVE (NEGATIVE) Urine Urobilinogen NEGATIVE (0-1) mg/dL Ur Leukocyte Esterase NEGATIVE (NEGATIVE) Urine WBC (Auto) 0-2 (0-5) /HPF Urine RBC (Auto) NONE (0-2) /HPF U Epithel Cells (Auto) RARE (FEW) /HPF Urine Bacteria (Auto) NONE (NEGATIVE) /HPF Urine Mucus (Auto) MODERATE (NEGATIVE) /HPF Urine Culture Reflexed NO (NO) Urine Glucose NEGATIVE (NEGATIVE) mg/dL 01/03/19 01/03/19 01/03/19 Range/Units 15:04 18:22 21:44 WBC (4.0-10.5) K/mm3 RBC (4.1-5.6) M/mm3 Hgb (12.5-18.0) gm/dl Hct (42-50) % MCV (78-100) fl MCH (26-32) pg MCHC (32-36) g/dl RDW (11.5-14.0) % Plt Count (150-450) K/mm3 MPV (6-9.5) fl Gran % (36.0-66.0) % Eos # (Auto) (0-0.5) Absolute Lymphs (auto) (1.0-4.6) Absolute Monos (auto) (0.0-1.3) Lymphocytes % (24.0-44.0) % Monocytes % (0.0-12.0) % Eosinophils % (0.00-5.0) % Basophils % (0.0-0.4) % Absolute Granulocytes (1.4-6.9) Basophils # (0-0.4) PT (8.83-12.87) SECONDS INR (0.8-3.0) Sodium (137-145) mmol/L Potassium (3.5-5.1) mmol/L Chloride (98-107) mmol/L Carbon Dioxide (22-30) mmol/L Anion Gap (5-15) MEQ/L BUN (9-20) mg/dL Creatinine (0.66-1.25) mg/dL Estimated GFR ML/MIN Glucose (74-106) mg/dL Lactic Acid (0.4-2.0) Calcium (8.4-10.2) mg/dL Total Bilirubin (0.2-1.3) mg/dL AST (17-59) U/L ALT (0-50) U/L Alkaline Phosphatase (38-126) U/L Troponin I < 0.012 < 0.012 < 0.012 (0.000-0.034) ng/mL Serum Total Protein (6.3-8.2) g/dL Albumin (3.5-5.0) g/dL Triglycerides (30-150) mg/dL Cholesterol (50-200) mg/dL LDL Cholesterol (30-100) mg/dL HDL Cholesterol (40-60) mg/dL Heart Disease Risk Ratio Lipase (23-300) U/L Urine Color (YELLOW) Urine Appearance (CLEAR) Urine pH (5-6) Ur Specific [place] (1.005-1.025) Urine Protein (Negative) Urine Ketones (NEGATIVE) Urine Blood (0-5) Giovanni/ul Urine Nitrite (NEGATIVE) Urine Bilirubin (NEGATIVE) Urine Urobilinogen (0-1) mg/dL Ur Leukocyte Esterase (NEGATIVE) Urine WBC (Auto) (0-5) /HPF Urine RBC (Auto) (0-2) /HPF U Epithel Cells (Auto) (FEW) /HPF Urine Bacteria (Auto) (NEGATIVE) /HPF Urine Mucus (Auto) (NEGATIVE) /HPF Urine Culture Reflexed (NO) Urine Glucose (NEGATIVE) mg/dL 01/04/19 01/04/19 Range/Units 00:25 05:35 WBC (4.0-10.5) K/mm3 RBC (4.1-5.6) M/mm3 Hgb (12.5-18.0) gm/dl Hct (42-50) % MCV (78-100) fl MCH (26-32) pg MCHC (32-36) g/dl RDW (11.5-14.0) % Plt Count (150-450) K/mm3 MPV (6-9.5) fl Gran % (36.0-66.0) % Eos # (Auto) (0-0.5) Absolute Lymphs (auto) (1.0-4.6) Absolute Monos (auto) (0.0-1.3) Lymphocytes % (24.0-44.0) % Monocytes % (0.0-12.0) % Eosinophils % (0.00-5.0) % Basophils % (0.0-0.4) % Absolute Granulocytes (1.4-6.9) Basophils # (0-0.4) PT (8.83-12.87) SECONDS INR (0.8-3.0) Sodium (137-145) mmol/L Potassium (3.5-5.1) mmol/L Chloride (98-107) mmol/L Carbon Dioxide (22-30) mmol/L Anion Gap (5-15) MEQ/L BUN (9-20) mg/dL Creatinine (0.66-1.25) mg/dL Estimated GFR ML/MIN Glucose (74-106) mg/dL Lactic Acid (0.4-2.0) Calcium (8.4-10.2) mg/dL Total Bilirubin (0.2-1.3) mg/dL AST (17-59) U/L ALT (0-50) U/L Alkaline Phosphatase (38-126) U/L Troponin I < 0.012 (0.000-0.034) ng/mL Serum Total Protein (6.3-8.2) g/dL Albumin (3.5-5.0) g/dL Triglycerides 103 (30-150) mg/dL Cholesterol 127 (50-200) mg/dL LDL Cholesterol 84 (30-100) mg/dL HDL Cholesterol 25 L (40-60) mg/dL Heart Disease Risk Ratio 5.2 Lipase (23-300) U/L Urine Color (YELLOW) Urine Appearance (CLEAR) Urine pH (5-6) Ur Specific [place] (1.005-1.025) Urine Protein (Negative) Urine Ketones (NEGATIVE) Urine Blood (0-5) Giovanni/ul Urine Nitrite (NEGATIVE) Urine Bilirubin (NEGATIVE) Urine Urobilinogen (0-1) mg/dL Ur Leukocyte Esterase (NEGATIVE) Urine WBC (Auto) (0-5) /HPF Urine RBC (Auto) (0-2) /HPF U Epithel Cells (Auto) (FEW) /HPF Urine Bacteria (Auto) (NEGATIVE) /HPF Urine Mucus (Auto) (NEGATIVE) /HPF Urine Culture Reflexed (NO) Urine Glucose (NEGATIVE) mg/dL - Radiology Impressions Radiology Exams & Impressions: Radiology Procedures Category Date Time Status ABDOMEN AND PELVIS W CONTRAST [CT] Stat Exams 01/03/19 13:11 Completed CHEST 1 VIEW (PORTABLE) Stat Exams 01/03/19 12:15 Completed - Other Procedures and Tests Respiratory Therapy 01/03/19 15:13 Oxygen NASAL CANNULA 2 lpm 01/03/19 16:35 Peak Expiratory Flow Rate ONCE Respiratory Therapy Assessment DAILY 01/05/19 05:00 EKG ONCE 01/06/19 05:00 EKG ONCE Assessment/Plan (1) Chest pain Current Visit: No Status: Acute Qualifiers: Chest pain type: unspecified Qualified Code(s): R07.9 - Chest pain, unspecified Assessment & Plan: NC ruled out with 5 neg troponins. Code(s): R07.9 - CHEST PAIN, UNSPECIFIED (2) Pneumonia Current Visit: No Status: Acute Qualifiers: Pneumonia type: due to unspecified organism Laterality: left Lung location: lower lobe of lung Qualified Code(s): J18.1 - Lobar pneumonia, unspecified organism Assessment & Plan: On day #2 rocephin and zithromax IV. Code(s): J18.9 - PNEUMONIA, UNSPECIFIED ORGANISM (3) Diarrhea Current Visit: No Status: Chronic Qualifiers: Diarrhea type: unspecified type Qualified Code(s): R19.7 - Diarrhea, unspecified Assessment & Plan: Stool studies ordered in ER - pending. Will call lab and change to GI pathogen panel if possible. Code(s): R19.7 - DIARRHEA, UNSPECIFIED
[2019-01-04] MEDS: Sodium Chloride 0.9% 1000 ML 1,000 ML IV SCH ×2 (10:13→22:09)
[2019-01-04] MEDS: Multaq 400 MG PO SCH ×2 (10:15→22:10)
[2019-01-04] MEDS: PLAVIX 75 MG Tablet PO SCH (10:15)
[2019-01-04] MEDS: BENTYL 20 MG PO SCH ×4 (10:15→22:10)
[2019-01-04] MEDS: Pepcid 20 MG PO SCH ×2 (10:15→22:11)
[2019-01-04] MEDS: SYNTHROID 88 MCG PO SCH (10:15)
[2019-01-04] MEDS: Zithromax 500 MG/ 250 ML NaCl Premix 500 MG/250 ML IVPB IV SCH (10:16)
[2019-01-04] MEDS: ROCEPHIN 1 Gm-D5w 50 ml Bag** 1 G/50 ML IVPB IV SCH (10:16)
[2019-01-04 11:35] LABS: Adenovirus F 40/41 NEGATIVE (NEGATIVE); Astrovirus NEGATIVE (NEGATIVE); C. Difficile Organism NEGATIVE (NEGATIVE); Campylobacter NEGATIVE (NEGATIVE); Cyclospora cayentanensis NEGATIVE (NEGATIVE); Entamoeaba histolytica NEGATIVE (NEGATIVE); Enteroaggregative E.coli NEGATIVE (NEGATIVE); Giardia lamblia NEGATIVE (NEGATIVE); Rotavirus A NEGATIVE (NEGATIVE); Salmonella NEGATIVE (NEGATIVE); Sapovirus NEGATIVE (NEGATIVE); Shiga-like toxin prod.E.coli NEGATIVE (NEGATIVE); Vibrio NEGATIVE (NEGATIVE)
[2019-01-04] MEDS ORDERED: TENORMIN 50 MG PO SCH (22:00)
[2019-01-04] MEDS: Neurontin 100 MG PO SCH (22:09)
[2019-01-04] MEDS: CARDURA 2 MG PO SCH (22:10)
[2019-01-04] MEDS: Proscar 5 MG PO SCH (22:11)
[2019-01-04] MEDS: Zocor 10MG PO SCH (22:12)
[2019-01-04] MEDS: BETHANECHOL CHLORIDE PO SCH (22:36)
[2019-01-05] MEDS: NITRO-BID 2% UD PACKETS TOP SCH (06:20)
[2019-01-05] MEDS ORDERED: DUONEB 0.5-3 MG/3 ml Neb IH SCH (07:00)
[2019-01-05] MEDS: Advair Hfa 115/21 Common canister IH SCH (07:03)
[2019-01-05] MEDS: Sodium Chloride 0.9% 1000 ML 1,000 ML IV SCH (08:00)
--- NOTE | 2019-01-05 09:18 | PCM.DS ---
Discharge Summary Date of Admission: 01/03/19 15:31 Admitting Physician: GALEN COLE Primary Care Provider: NATALEE POTTS Allergies Allergies levofloxacin Allergy (Intermediate, Verified 01/03/19 11:48) [facility] Summary - Hospital Course Hospital Course: patient was admitted through ER, presented with chest pain and diarrhea. workup for diarrhea has been negative, abd/pel CT nothing acute and has improved since admission. had IA ruled out, found to have left lung base infiltrate vs atelectasis on chest xray, treated for pneumonia and pain is gone. his sats are normal on room air, he has been afebrile since admission and is pain free and feels well today at the time of discharge. - Vitals & Intake/Output Vital Signs: Vital Signs Temperature 97.8 F 01/05/19 07:06 Pulse Rate 55 L 01/05/19 07:06 Respiratory Rate 18 01/05/19 07:31 Blood Pressure 120/61 01/05/19 07:06 O2 Sat by Pulse Oximetry 96 01/05/19 07:06 Intake & Output: Intake & Output 01/02/19 01/03/19 01/04/19 01/05/19 11:59 11:59 11:59 11:59 Intake Total 2471 6648 Output Total 1195 2100 Balance 1276 4548 Weight 86.183 kg 85.6 kg 96 kg - Lab Result Diagrams: 01/03/19 12:10 01/03/19 12:10 Lab Results-Last 24 Hrs: Lab Results-Last 24 Hours 01/04/19 Range/Units 08:00 Stl C. cayetanensis PCR NEGATIVE (NEGATIVE) Stl Adenov F 40/41 PCR NEGATIVE (NEGATIVE) Stool Astrovirus (PCR) NEGATIVE (NEGATIVE) Stool Cryptosporidium PCR NEGATIVE (NEGATIVE) Stool EPEC (PCR) NEGATIVE (NEGATIVE) Stool EAEC (PCR) NEGATIVE (NEGATIVE) Stl E. histolytica PCR NEGATIVE (NEGATIVE) Stl P. shigelloides PCR NEGATIVE (NEGATIVE) Stool Sapovirus (PCR) NEGATIVE (NEGATIVE) St Y.enterocolitica PCR NEGATIVE (NEGATIVE) Stool Vibrio (PCR) NEGATIVE (NEGATIVE) Stl Vibrio cholerae PCR NEGATIVE (NEGATIVE) Stl Norovirus GI/GII PCR NEGATIVE (NEGATIVE) Campylobacter (PCR) NEGATIVE (NEGATIVE) C. difficile Toxin A&B NEGATIVE (NEGATIVE) Enterotoxigenic E. coli NEGATIVE (NEGATIVE) E.coli Shiga Toxins NEGATIVE (NEGATIVE) Giardia lamblia NEGATIVE (NEGATIVE) Rotavirus A (PCR) NEGATIVE (NEGATIVE) Salmonella (PCR) NEGATIVE (NEGATIVE) Shigella (PCR) NEGATIVE (NEGATIVE) Micro Results-Entire Visit: Microbiology 01/03/19 12:40 Blood Culture - Preliminary Blood NO GROWTH TO DATE 01/03/19 12:30 Blood Culture - Preliminary Blood NO GROWTH TO DATE - Radiology Exams Ordered Rad Exams-Entire Visit: Radiology Procedures Category Date Time Status ABDOMEN AND PELVIS W CONTRAST [CT] Stat Exams 01/03/19 13:11 Completed CHEST 1 VIEW (PORTABLE) Stat Exams 01/03/19 12:15 Completed - Procedures and Test Procedures and Tests throughout Hospitalization: Therapy Orders & Screens 01/03/19 15:13 Oxygen NASAL CANNULA 2 lpm Comment: chest pain Diagnosis: CP R/O IA 01/03/19 16:09 RT Screen per Nursing Assess ONCE Comment: Protocol Order Physician Instructions: Greater than 3 points order RT Admission Screen Reason For Exam: Triggered on Admission Diagnosis: CP R/O IA Diagnosis: CP R/O IA Pneumonia: No Home O2: Yes: night Asthma: No CHF: No Home CPAP/BIPAP: Yes Home Nebs/MDI: Yes Total Points: 15 01/03/19 16:35 Peak Expiratory Flow Rate ONCE Comment: Reason For Exam: Diagnosis: CP R/O IA Respiratory Therapy Assessment DAILY Comment: Diagnosis: CP R/O IA 01/03/19 19:44 EKG ONCE Comment: Diagnosis: CP R/O IA 01/04/19 05:00 EKG ONCE Comment: Diagnosis: CP R/O IA 01/05/19 05:00 EKG ONCE Comment: Diagnosis: CP R/O IA 01/06/19 05:00 EKG ONCE Comment: Diagnosis: CP R/O IA Discharge Exam General Appearance: no apparent distress, alert Respiratory Exam: normal breath sounds, lungs clear, No respiratory distress Cardiovascular Exam: regular rate/rhythm, normal heart sounds Gastrointestinal/Abdomen Exam: soft, No tenderness, No mass Extremity Exam: normal inspection, normal range of motion Skin Exam: normal color, warm, dry Final Diagnosis/Problem List - Final Discharge Diagnosis/Problem (1) Chest pain Current Visit: No Status: Acute Assessment & Plan: IA ruled out, related to pneumonia, noncardiac Code(s): R07.9 - CHEST PAIN, UNSPECIFIED (2) Pneumonia Current Visit: No Status: Acute Assessment & Plan: home on po cefdinir Code(s): J18.9 - PNEUMONIA, UNSPECIFIED ORGANISM (3) Diarrhea Current Visit: Yes Status: Acute Assessment & Plan: resolved Code(s): R19.7 - DIARRHEA, UNSPECIFIED - Discharge Disposition: Home, Self-Care Condition: Good Prescriptions: New Cefdinir 300 mg PO BID #14 capsule Continue Lovastatin 20 mg PO HS Atenolol 12.5 mg PO HS Dronedarone Hydrochloride 400* [Multaq 400 MG] 400 mg PO BID Fluticasone/Vilanterol [Breo Ellipta 200-25 Mcg INH] 1 each IH DAILY Bethanechol Chloride 50 mg PO HS Levothyroxine Sodium 88 Mcg [Synthroid 88 Mcg] 88 mcg PO DAILY Ipratropium [place] 0.2 mg IH QID Gabapentin 200 mg PO HS Finasteride 5 mg [Proscar 5 MG] 5 mg PO HS Famotidine 20 mg [Pepcid 20 MG] 20 mg PO BID Doxazosin Mesylate 1 mg PO HS Dicyclomine HCl 20 mg [Bentyl 20 mg] 20 mg PO QID Albuterol Sulfate [Proair Respiclick] 90 mcg IH DAILY Cholecalciferol (Vitamin D3) [D3-2000] 2,000 unit PO HS Clopidogrel Bisulfate [Clopidogrel] 75 mg HS Follow up with: NATALEE POTTS NP [Primary Care Provider] - 1 Week
[2019-01-05] MEDS: BENTYL 20 MG PO SCH (09:53)
[2019-01-05] MEDS: ROCEPHIN 1 Gm-D5w 50 ml Bag** 1 G/50 ML IVPB IV SCH (09:53)
[2019-01-05] MEDS: Pepcid 20 MG PO SCH (09:53)
[2019-01-05] MEDS: SYNTHROID 88 MCG PO SCH (09:53)
[2019-01-05] MEDS: Multaq 400 MG PO SCH (09:53)
[2019-01-05] MEDS: PLAVIX 75 MG Tablet PO SCH (09:53)
[2019-01-05] MEDS: Zithromax 500 MG/ 250 ML NaCl Premix 500 MG/250 ML IVPB IV SCH (09:59)
[2019-01-05 12:20] VITALS: O2SAT 93
[2019-01-05 12:28] VITALS: BP 120/64; PULSE 68
== END 2019-01-05 12:55 | disposition home or self-care (01) ==
LOC: ED 11:40 → MED SURG 15:31
PROVIDERS: ADMIT Family Medicine; ATTEND Family Medicine
DX: R07.9 Chest pain, unspecified (principal); J18.9 Pneumonia, unspecified organism; R19.7 Diarrhea, unspecified; R11.2 Nausea with vomiting, unspecified; R10.9 Unspecified abdominal pain; I10 Essential (primary) hypertension; I25.10 Atherosclerotic heart disease of native coronary artery without angina pectoris; J44.9 Chronic obstructive pulmonary disease, unspecified; E78.5 Hyperlipidemia, unspecified; Z79.899 Other long term (current) drug therapy
CPT/HCPCS: 36415; 71045; 74177; 80053; 80061; 81001; 83605; 83690; 83721; 84484; 85025; 85610; 87040; 87507; 93005; 93041; 93268; 94150; 94640; 94760; 96365; 96374; 99285; G0378; J0456; J0696; A9270-GY

== ENCOUNTER 2019-01-20 21:28 | Emergency (ER) | payer MEDICARE ==
--- NOTE | 2019-01-20 22:29 | ERPHSYRPT ---
- History of Present Illness Time Seen by Provider: 01/20/19 23:30 Source: patient Exam Limitations: no limitations Patient Subjective Stated Complaint: pt is alert and oriented. pt is ambulatory with a steady gait. pt comes in with c/o burning and itching of his bilat feet. pt feet are red, slightly swollen, and warm to the touch. there is a rubbed off area to the bottom of his right big toe. no other open areas noted. pt states the burning and itching began yesterday evening and the swelling and redness started today. pt lower legs are normal color, no swelling noted. Triage Nursing Assessment: see above Physician History: 69 y/o white male, who has been on several weeks of antibiotics, presents with one day h/o itching and burning of bilat feet followed by associated redness today. no other sx. pt was placed on a topical antifungal yesterday for a rash of lower left leg. Method of Injury: unknown Occurred: yesterday Quality: burning, other (itching and redness) Severity of Pain-Max: mild Severity of Pain-Current: mild Lower Extremities Pain: foot: bilateral Modifying Factors: Improves With: nothing Associated Symptoms: none Allergies/Adverse Reactions: levofloxacin Allergy (Intermediate, Verified 01/03/19 11:48) Hives Home Medications: Atenolol 12.5 mg PO HS 08/02/16 [History] Lovastatin 20 mg PO HS 08/02/16 [History] Dronedarone Hydrochloride 400* [Multaq 400 MG] 400 mg PO BID 09/29/16 [ History] Fluticasone/Vilanterol [Breo Ellipta 200-25 Mcg INH] 1 each IH DAILY 03/10/17 [ History] Albuterol Sulfate [Proair Respiclick] 90 mcg IH DAILY 11/25/18 [History] Bethanechol Chloride 50 mg PO HS 11/25/18 [History] Cholecalciferol (Vitamin D3) [D3-2000] 2,000 unit PO HS 11/25/18 [History] Dicyclomine HCl 20 mg [Bentyl 20 mg] 20 mg PO QID 11/25/18 [History] Doxazosin Mesylate 1 mg PO HS 11/25/18 [History] Famotidine 20 mg [Pepcid 20 MG] 20 mg PO BID 11/25/18 [History] Finasteride 5 mg [Proscar 5 MG] 5 mg PO HS 11/25/18 [History] Gabapentin 200 mg PO HS 11/25/18 [History] Ipratropium [place] 0.2 mg IH QID 11/25/18 [History] Levothyroxine Sodium 88 Mcg [Synthroid 88 Mcg] 88 mcg PO DAILY 11/25/18 [ History] Clopidogrel Bisulfate [Clopidogrel] 75 mg HS 01/03/19 [History] Hx Tetanus, Diphtheria Vaccination/Date Given: Yes Hx Influenza Vaccination/Date Given: Yes Hx Pneumococcal Vaccination/Date Given: Yes Immunizations Up to Date: Yes - Review of Systems Constitutional: No Symptoms Eyes: No Symptoms Ears, Nose, & Throat: No Symptoms Respiratory: No Symptoms Cardiac: No Symptoms Abdominal/Gastrointestinal: No Symptoms Genitourinary Symptoms: No Symptoms Musculoskeletal: No Symptoms Skin: Other (itching burning redness) Neurological: No Symptoms Psychological: No Symptoms Endocrine: No Symptoms Hematologic/Lymphatic: No Symptoms Immunological/Allergic: No Symptoms All Other Systems: Reviewed and Negative - Past Medical History Pertinent Past Medical History: Yes Neurological History: No Pertinent History ENT History: Cataracts Cardiac History: Angina, Coronary Artery Disease, High Cholesterol, Hypertension Respiratory History: COPD, Pneumonia Endocrine Medical History: No Pertinent History Musculoskeletal History: Arthritis GI Medical History: GERD, Hemorrhoids History: No Pertinent History Psycho-Social History: No Pertinent History Male Reproductive Disorders: Prostate Problems - Past Surgical History Past Surgical History: Yes Neuro Surgical History: No Pertinent History Cardiac: Cardiac Catheterization, Cardiac Stent, Other Respiratory: No Pertinent History Gastrointestinal: Cholecystectomy Genitourinary: No Pertinent History Musculoskeletal: No Pertinent History Male Surgical History: No Pertinent History Other Surgical History: heart cath with 2 stents aug 2016. Apr 2016 pt had biopsy of mediastinum lymphnodes - Social History Smoking Status: Never smoker Exposure to second hand smoke: No Alcohol Use: None Drug Use: none Patient Lives Alone: No Significant Family History: no pertinent family hx - Nursing Vital Signs Nursing Vital Signs: Initial Vital Signs Temperature 97.7 F 01/20/19 22:20 Pulse Rate 80 01/20/19 22:20 Respiratory Rate 16 01/20/19 22:20 Blood Pressure 130/75 01/20/19 22:20 O2 Sat by Pulse Oximetry 92 L 01/20/19 22:20 Pain Scale Pain Intensity 9 - Physical Exam General Appearance: no apparent distress, alert Eyes, Ears, Nose, Throat Exam: normal ENT inspection, moist mucous membranes Neck Exam: normal inspection, non-tender, supple, full range of motion Cardiovascular/Respiratory Exam: chest non-tender, no respiratory distress Gastrointestinal/Abdominal Exam: non-tender Back Exam: normal inspection, normal range of motion, No CVA tenderness, No vertebral tenderness Hips Exam: bilateral: non-tender, normal inspection, normal range of motion, no evidence of injury Legs Exam: bilateral leg: non-tender, normal inspection, normal range of motion , no evidence of injury Knees Exam: bilateral knee: non-tender, normal inspection, normal range of motion, no evidence of injury Ankle Exam: bilateral ankle: non-tender, normal inspection, normal range of motion, no evidence of injury Foot Exam: bilateral foot: pain (plantar surface with redness and paisley pattern rash, itchy and burning pain) Neuro/Tendon Exam: normal sensation, normal motor functions, normal tendon functions Mental Status Exam: alert, oriented x 3, cooperative Skin Exam: other (see above) SpO2 Interpretation: normal SpO2: 92 O2 Delivery: Room Air - Course Nursing assessment & vital signs reviewed: Yes - Progress Progress: unchanged Counseled pt/family regarding: diagnosis, need for follow-up - Departure Departure Disposition: Home Clinical Impression: Fungal infection of foot Condition: Stable Critical Care Time: No Referrals: KAYKAY HUDSON [Primary Care Provider] - Additional Instructions: keep both feet moist. avoid drying cracks. take medications as prescribed. follow up with dr. hudson office tomorrow. Prescriptions: Fluconazole 100 mg [Diflucan 100 MG] 100 mg PO WEEKLY 1 Days tablet Prednisone 10 mg [Deltasone 10 mg] 10 mg PO BID #6 tablet
[2019-01-20] MEDS ORDERED: Diflucan 100 MG PO ONE (23:38)
[2019-01-20] MEDS ORDERED: solu-MEDROL 125 MG IM ONE (23:38)
[2019-01-21] MEDS ORDERED: solu-MEDROL 125 MG ONE (00:16)
[2019-01-21 00:23] VITALS: BP 137/72; PULSE 74; O2SAT 96
== END 2019-01-21 00:35 | disposition home or self-care (01) ==
LOC: ED 21:28
DX: B35.3 Tinea pedis (principal); Z79.899 Other long term (current) drug therapy; I25.10 Atherosclerotic heart disease of native coronary artery without angina pectoris; I10 Essential (primary) hypertension; E78.00 Pure hypercholesterolemia, unspecified
CPT/HCPCS: 36415; 87040; 96372; 99284; J2930; A9270-GY

== ENCOUNTER 2019-01-22 00:01 | Emergency (ER) | payer MEDICARE ==
[2019-01-22] MEDS ORDERED: MORPHINE SULFATE 4 MG INJ IM ONE (00:20)
[2019-01-22] MEDS ORDERED: Phenergan 25 MG INJ IM ONE (00:21)
[2019-01-22] MEDS ORDERED: MORPHINE SULFATE 4 MG INJ ONE (00:22)
[2019-01-22] MEDS ORDERED: Phenergan 25 MG INJ ONE (00:22)
--- NOTE | 2019-01-22 00:29 | ERPHSYRPT ---
- History of Present Illness Time Seen by Provider: 01/22/19 00:15 Patient Subjective Stated Complaint: Pt is alert and oriented. pt comes in with c/o foot and hand pain. pt was seen last night with same complaint and diagnosed with a fungal infection and prescribed diflucan. pt states he has taken one dose of his diflucan and the itching and burning was better until 2100 tonight when it started back again. pt then called an ambulance. pt has splotchy redness to bilat feet. no swelling noted. no noted redness or swelling noted to hands. pt in no obvious distress. Triage Nursing Assessment: see above Physician History: PATIENT WITH A HISTORY OF COPD, HYPERTENSION, CORONARY ARTERY DISEASE. TREATED FOR TINEA PEDIS OF BOTH FEET WHILE IN EMERGENCY ROOM LAST NIGHT, EVALUATED AND TREATED BY HIS PRIMARY CARE PROVIDER IN OFFICE TODAY AND GIVEN ANOTHER ANTIFUNGAL OINTMENT, HE COMPLAINS OF PAIN, DENIES FEVER OR DRAINAGE FROM RASH. Timing/Duration: week(s) Quality: itchy, painful Severity: severe Location: feet Modifying Factors: Improves With: topical steriods Associated Symptoms: blisters, change in skin texture Allergies/Adverse Reactions: levofloxacin Allergy (Intermediate, Verified 01/03/19 11:48) Hives Home Medications: Atenolol 12.5 mg PO HS 08/02/16 [History] Lovastatin 20 mg PO HS 08/02/16 [History] Dronedarone Hydrochloride 400* [Multaq 400 MG] 400 mg PO BID 09/29/16 [ History] Fluticasone/Vilanterol [Breo Ellipta 200-25 Mcg INH] 1 each IH DAILY 03/10/17 [ History] Albuterol Sulfate [Proair Respiclick] 90 mcg IH DAILY 11/25/18 [History] Bethanechol Chloride 50 mg PO HS 11/25/18 [History] Cholecalciferol (Vitamin D3) [D3-2000] 2,000 unit PO HS 11/25/18 [History] Dicyclomine HCl 20 mg [Bentyl 20 mg] 20 mg PO QID 11/25/18 [History] Doxazosin Mesylate 1 mg PO HS 11/25/18 [History] Famotidine 20 mg [Pepcid 20 MG] 20 mg PO BID 11/25/18 [History] Finasteride 5 mg [Proscar 5 MG] 5 mg PO HS 11/25/18 [History] Gabapentin 200 mg PO HS 11/25/18 [History] Ipratropium [place] 0.2 mg IH QID 11/25/18 [History] Levothyroxine Sodium 88 Mcg [Synthroid 88 Mcg] 88 mcg PO DAILY 11/25/18 [ History] Clopidogrel Bisulfate [Clopidogrel] 75 mg HS 01/03/19 [History] Hx Tetanus, Diphtheria Vaccination/Date Given: Yes Hx Influenza Vaccination/Date Given: Yes Hx Pneumococcal Vaccination/Date Given: Yes Immunizations Up to Date: Yes - Review of Systems Constitutional: No Fever, No Chills Eyes: No Symptoms Ears, Nose, & Throat: No Symptoms Respiratory: No Symptoms, No Cough, No Dyspnea Cardiac: No Symptoms, No Chest Pain, No Edema, No Syncope Abdominal/Gastrointestinal: No Abdominal Pain, No Nausea, No Vomiting, No Diarrhea Genitourinary Symptoms: No Symptoms, No Dysuria Musculoskeletal: No Symptoms, No Back Pain, No Neck Pain Skin: Pruritis, Skin Lesions, No Rash Neurological: No Dizziness, No Focal Weakness, No Sensory Changes Psychological: No Symptoms Endocrine: No Symptoms All Other Systems: Reviewed and Negative - Past Medical History Pertinent Past Medical History: Yes Neurological History: No Pertinent History ENT History: Cataracts Cardiac History: Angina, Coronary Artery Disease, High Cholesterol, Hypertension Respiratory History: COPD, Pneumonia Endocrine Medical History: No Pertinent History Musculoskeletal History: Arthritis GI Medical History: GERD, Hemorrhoids History: No Pertinent History Psycho-Social History: No Pertinent History Male Reproductive Disorders: Prostate Problems - Past Surgical History Past Surgical History: Yes Neuro Surgical History: No Pertinent History Cardiac: Cardiac Catheterization, Cardiac Stent, Other Respiratory: No Pertinent History Gastrointestinal: Cholecystectomy Genitourinary: No Pertinent History Musculoskeletal: No Pertinent History Male Surgical History: No Pertinent History Other Surgical History: heart cath with 2 stents aug 2016. Apr 2016 pt had biopsy of mediastinum lymphnodes - Social History Smoking Status: Never smoker Exposure to second hand smoke: No Alcohol Use: None Drug Use: none Patient Lives Alone: No Significant Family History: no pertinent family hx - Nursing Vital Signs Nursing Vital Signs: Initial Vital Signs Pulse Rate 86 01/22/19 00:02 Respiratory Rate 18 01/22/19 00:02 Blood Pressure 137/83 01/22/19 00:02 O2 Sat by Pulse Oximetry 93 L 01/22/19 00:02 Pain Scale Pain Intensity 10 - Physical Exam General Appearance: no apparent distress, alert Eye Exam: PERRL/EOMI, eyes nml inspection Ears, Nose, Throat Exam: normal ENT inspection, pharynx normal, moist mucous membranes Neck Exam: normal inspection, non-tender, supple, full range of motion Respiratory Exam: normal breath sounds, lungs clear, No respiratory distress Cardiovascular Exam: regular rate/rhythm, normal heart sounds Gastrointestinal/Abdomen Exam: soft, normal bowel sounds, mass, No tenderness Back Exam: normal inspection, normal range of motion, No CVA tenderness, No vertebral tenderness Extremity Exam: normal inspection, normal range of motion Neurologic Exam: alert, oriented x 3, cooperative, normal mood/affect, sensation nml, No motor deficits Skin Exam: normal color, warm, dry, other (BILAT VESICULAR LESIONS OVER BILATERAL FOOT, MORRISON SPACES OF TOES, FISSURES, NO DRAINAGE, DRY SCALY) SpO2 Interpretation: borderline oxygenation SpO2: 93 O2 Delivery: Room Air Ordered Tests: Active Orders 24 hr Category Date Time Status BMP Stat Lab 01/22/19 00:31 Completed CBC W DIFF Stat Lab 01/22/19 00:31 Completed Uric Acid Stat Lab 01/22/19 00:31 Completed Medication Summary Discontinued Medications Generic Name Dose Route Start Last Admin Trade Name Tay PRN Reason Stop Dose Admin Morphine Sulfate 4 mg 01/22/19 00:20 01/22/19 00:30 Morphine Sulfate 4 Mg Inj IM 01/22/19 00:21 4 mg STAT ONE Administration Morphine Sulfate Confirm 01/22/19 00:22 Morphine Sulfate 4 Mg Inj Administered 01/22/19 00:23 Dose 4 mg .ROUTE .STK-MED ONE Promethazine HCl 12.5 mg 01/22/19 00:21 01/22/19 00:29 Phenergan 25 Mg Inj IM 01/22/19 00:22 12.5 mg STAT ONE Administration Promethazine HCl Confirm 01/22/19 00:22 Phenergan 25 Mg Inj Administered 01/22/19 00:23 Dose 25 mg .ROUTE .STK-MED ONE Lab/Rad Data: Laboratory Result Diagrams 01/22/19 00:31 01/22/19 00:31 Laboratory Results 01/22/19 01/22/19 01/22/19 Range/Units 00:31 00:31 00:31 WBC 16.4 H (4.0-10.5) K/mm3 RBC 4.83 (4.1-5.6) M/mm3 Hgb 15.7 (12.5-18.0) gm/dl Hct 44.6 (42-50) % MCV 92.3 (78-100) fl MCH 32.5 H (26-32) pg MCHC 35.2 (32-36) g/dl RDW 14.9 H (11.5-14.0) % Plt Count 229 (150-450) K/mm3 MPV 9.3 (6-9.5) fl Gran % 81.4 H (36.0-66.0) % Eos # (Auto) 0.01 (0-0.5) Absolute Lymphs (auto) 2.23 (1.0-4.6) Absolute Monos (auto) 0.79 (0.0-1.3) Lymphocytes % 13.6 L (24.0-44.0) % Monocytes % 4.8 (0.0-12.0) % Eosinophils % 0.1 (0.00-5.0) % Basophils % 0.1 (0.0-0.4) % Absolute Granulocytes 13.33 H (1.4-6.9) Basophils # 0.02 (0-0.4) Sodium 141 (137-145) mmol/L Potassium 3.7 (3.5-5.1) mmol/L Chloride 109 H (98-107) mmol/L Carbon Dioxide 18 L (22-30) mmol/L Anion Gap 17.2 H (5-15) MEQ/L BUN 20 (9-20) mg/dL Creatinine 1.06 (0.66-1.25) mg/dL Estimated GFR > 60.0 ML/MIN Glucose 157 H (74-106) mg/dL Uric Acid 7.5 H (3.5-7.2) mg/dL Calcium 9.7 (8.4-10.2) mg/dL - Progress Progress Note: 01/22/19 01:31 MORPHINE 4MG/PHENERGAN 12.5MG IM, INDOCIN 50MG ORALLY Counseled pt/family regarding: lab results, diagnosis - Departure Departure Disposition: Home Clinical Impression: BILATERAL TINEA PEDIC, GOUT ARTHRITIS Condition: Stable Critical Care Time: No Referrals: KAYKAY CARRASQUILLO [Primary Care Provider] - Additional Instructions: BEGIN INDOCIN 25MG EVERY 8 HOURS FOR 1 WEEK. NORCON 5/325 EVERY 6 HOURS FOR PAIN. CONSULT YOUR PRIMARY CARE PROVIDER FOR FOLLOWUP. CLEANSE BILATERAL FEET WITH SOAP AND WATER PRIOR TO APPLICATON OF FOOT OINTMENT. Prescriptions: Hydrocodone/APAP 5-325 Tab^^^ [[place] 5-325 Tablet^^^] 1 tab PO Q6HPRN PRN #8 tablet MDD 6 PRN Reason: Pain Indomethacin 25 mg [Indocin 25 MG] 25 mg PO TID #21 capsule
[2019-01-22 00:35] LABS: BASOPHIL % 0.1 % (0.0-0.4); Basophil (Absolute #) 0.02 (0-0.4); Eosinophil % 0.1 % (0.00-5.0); Eosinophil (Absolute #) 0.01 (0-0.5); Granulocyte Absolute (ANC) 13.33 (1.4-6.9); Granulocytes % 81.4 % (36.0-66.0); Hematocrit 44.6 % (42-50); Hemoglobin 15.7 gm/dl (12.5-18.0); Lymphocyte (Absolute #) 2.23 (1.0-4.6); Lymphocytes % 13.6 % (24.0-44.0); Mean Cell Volume 92.3 fl (78-100); Mean Corpuscular Hemoglobin 32.5 pg (26-32); Mean Corpuscular Hgb Concent. 35.2 g/dl (32-36); Mean Platelet Volume 9.3 fl (6-9.5); Monocyte (Absolute #) 0.79 (0.0-1.3); Monocytes % 4.8 % (0.0-12.0); Platelet Count 229 K/mm3 (150-450); Red Blood Count 4.83 M/mm3 (4.1-5.6); Red Cell Distribution Width 14.9 % (11.5-14.0); White Blood Count 16.4 K/mm3 (4.0-10.5)
[2019-01-22 00:47] LABS: ANION GAP 17.2 MEQ/L (5-15); BLOOD UREA NITROGEN 20 mg/dL (9-20); CHLORIDE 109 mmol/L (98-107); Calcium 9.7 mg/dL (8.4-10.2); Carbon Dioxide 18 mmol/L (22-30); Creatinine 1 1.06 mg/dL (0.66-1.25); Glucose 157 mg/dL (74-106); Potassium 3.7 mmol/L (3.5-5.1); SODIUM 141 mmol/L (137-145)
[2019-01-22 01:34] VITALS: BP 139/85; PULSE 78
[2019-01-22] MEDS ORDERED: Indocin 25 MG PO ONE (01:38)
[2019-01-22 01:59] VITALS: O2SAT 92
[2019-01-22] MEDS ORDERED: Indocin 25 MG ONE (02:05)
== END 2019-01-22 02:22 | disposition home or self-care (01) ==
LOC: ED 00:01
DX: B35.3 Tinea pedis (principal); M10.9 Gout, unspecified; Z79.899 Other long term (current) drug therapy; I10 Essential (primary) hypertension; E78.00 Pure hypercholesterolemia, unspecified; I25.10 Atherosclerotic heart disease of native coronary artery without angina pectoris; J44.9 Chronic obstructive pulmonary disease, unspecified; K21.9 Gastro-esophageal reflux disease without esophagitis; M19.90 Unspecified osteoarthritis, unspecified site
CPT/HCPCS: 36415; 80048; 84550; 85025; 96372; 99284; J2270; J2550; A9270-GY

== ENCOUNTER 2019-02-14 17:11 | Emergency (ER) | payer MEDICARE ==
[2019-02-14] MEDS ORDERED: XYLOCAINE 1% HCL 20 ML MDV ONE (17:27)
--- NOTE | 2019-02-14 17:53 | ERPHSYRPT ---
- History of Present Illness Time Seen by Provider: 02/14/19 17:38 Source: patient Exam Limitations: no limitations Patient Subjective Stated Complaint: Pt states "I was grinding a bolt and I cut my wrist with the pulp grinder feeder." Triage Nursing Assessment: Pt presented through the front, alert and oriented X 3, skin pwd. Pt ambualtes with an upright steady gait, able to speak in clear full sentences. PT in no apparent respiratory distress. PT has laceration noted to left wrist, bleeding controlled. laceration is 2.25 cm x 0.75 cm Physician History: Pt accidentally cut his left wrist at home with a pulp grinder feeder before coming. He denies other injury or complaints, he states, he had tetanus updated 2 years ago. Occurred: just prior to arrival Method of Injury: incised Quality: constant Severity of Pain-Max: mild Severity of Pain-Current: mild Extremities Pain Location: wrist: left Modifying Factors: Improves With: nothing Associated Symptoms: none Allergies/Adverse Reactions: levofloxacin Allergy (Intermediate, Verified 01/03/19 11:48) Hives Home Medications: Atenolol 12.5 mg PO HS 08/02/16 [History] Lovastatin 20 mg PO HS 08/02/16 [History] Dronedarone Hydrochloride 400* [Multaq 400 MG] 400 mg PO BID 09/29/16 [ History] Fluticasone/Vilanterol [Breo Ellipta 200-25 Mcg INH] 1 each IH DAILY 03/10/17 [ History] Albuterol Sulfate [Proair Respiclick] 90 mcg IH DAILY 11/25/18 [History] Bethanechol Chloride 50 mg PO HS 11/25/18 [History] Cholecalciferol (Vitamin D3) [D3-2000] 2,000 unit PO HS 11/25/18 [History] Dicyclomine HCl 20 mg [Bentyl 20 mg] 20 mg PO QID 11/25/18 [History] Doxazosin Mesylate 1 mg PO HS 11/25/18 [History] Famotidine 20 mg [Pepcid 20 MG] 20 mg PO BID 11/25/18 [History] Finasteride 5 mg [Proscar 5 MG] 5 mg PO HS 11/25/18 [History] Gabapentin 200 mg PO HS 11/25/18 [History] Ipratropium [place] 0.2 mg IH QID 11/25/18 [History] Levothyroxine Sodium 88 Mcg [Synthroid 88 Mcg] 88 mcg PO DAILY 11/25/18 [ History] Clopidogrel Bisulfate [Clopidogrel] 75 mg HS 01/03/19 [History] Hx Tetanus, Diphtheria Vaccination/Date Given: Yes Hx Influenza Vaccination/Date Given: Yes Hx Pneumococcal Vaccination/Date Given: Yes Immunizations Up to Date: Yes - Review of Systems Constitutional: No Symptoms Ears, Nose, & Throat: No Symptoms Respiratory: No Symptoms Cardiac: No Symptoms Abdominal/Gastrointestinal: No Symptoms Musculoskeletal: Other (left wrist laceration, no severe bleeding.) Skin: No Symptoms Neurological: No Symptoms Psychological: No Symptoms All Other Systems: Reviewed and Negative - Past Medical History Pertinent Past Medical History: Yes Neurological History: No Pertinent History ENT History: Cataracts Cardiac History: Angina, Coronary Artery Disease, High Cholesterol, Hypertension Respiratory History: COPD, Pneumonia Endocrine Medical History: No Pertinent History Musculoskeletal History: Arthritis GI Medical History: GERD, Hemorrhoids History: No Pertinent History Psycho-Social History: No Pertinent History Male Reproductive Disorders: Prostate Problems - Past Surgical History Past Surgical History: Yes Neuro Surgical History: No Pertinent History Cardiac: Cardiac Catheterization, Cardiac Stent, Other Respiratory: No Pertinent History Gastrointestinal: Cholecystectomy Genitourinary: No Pertinent History Musculoskeletal: No Pertinent History Male Surgical History: No Pertinent History Other Surgical History: heart cath with 2 stents aug 2016. Apr 2016 pt had biopsy of mediastinum lymphnodes - Social History Smoking Status: Never smoker Exposure to second hand smoke: Yes Alcohol Use: None Drug Use: none Patient Lives Alone: No Significant Family History: no pertinent family hx - Nursing Vital Signs Nursing Vital Signs: Initial Vital Signs Temperature 98.1 F 02/14/19 17:18 Pulse Rate 78 02/14/19 17:18 Respiratory Rate 16 02/14/19 17:18 Blood Pressure 139/81 02/14/19 17:18 O2 Sat by Pulse Oximetry 97 02/14/19 17:18 Pain Scale Pain Intensity 8 - Physical Exam General Appearance: no apparent distress Eyes, Ears, Nose, Throat Exam: normal ENT inspection Neck Exam: normal inspection, non-tender Cardiovascular/Respiratory Exam: chest non-tender, normal breath sounds, heart sounds normal Abdominal Exam: non-tender Back Exam: normal inspection Shoulder Exam: normal inspection Wrist Exam: non-tender (1.5 cm superficial laceration to left volar wrist, on the radial site, normal distal arterial pulsation, no sign of neurovascular or tendon injury, normal capillary refills.) Hand Exam: normal inspection, non-tender Neuro/Tendon Exam: normal sensation, normal motor functions, normal tendon functions, no evidence tendon injury Mental Status Exam: alert, oriented x 3, cooperative Skin Exam: normal color, warm, dry SpO2 Interpretation: normal SpO2: 97 O2 Delivery: Room Air Procedures - Laceration/Wound Repair Left Volar Wrist Wound Location: Left, wrist Wound Length (cm): 1.5 Wound's Depth, Shape: superficial Wound Explored: clean Irrigated: Yes Hibiclens Prep: No Anesthesia: local, 1% Lidocaine Volume Anesthetic (ccs): 4 Wound Repaired With: sutures Suture Size/Type: 4-0, ethilon Number of Sutures: 3 Layer Closure?: No Sterile Dressing Applied?: Yes Splint Applied?: No Sling Applied?: No - Course Nursing assessment & vital signs reviewed: Yes Ordered Tests: Medication Summary Discontinued Medications Generic Name Dose Route Start Last Admin Trade Name Tay PRN Reason Stop Dose Admin Lidocaine HCl Confirm 02/14/19 17:27 Xylocaine 1% Hcl 20 Ml Mdv Administered 02/14/19 17:28 Dose 1 ml .ROUTE .[employer] ONE - Progress Progress: improved Progress Note: 02/14/19 17:58 Pt tolerated sutures well, he is being discharged advising to rest with elevated arm x 2-3 days, change sterile dressing daily, and follow up with his physician in 2-3 days, removal of the sutures after 7 days. Counseled pt/family regarding: diagnosis, need for follow-up - Departure Departure Disposition: Home Clinical Impression: Laceration of wrist Qualifiers: Encounter type: initial encounter Laterality: left Qualified Code(s): S61.512A - Laceration without foreign body of left wrist, initial encounter Condition: Stable Critical Care Time: No Referrals: KAYKAY CARRASQUILLO [Primary Care Provider] - Instructions: Laceration Repair With Stitches (DC) Additional Instructions: Resst x 2-3 days with elevated arm, change sterile dressings daily and follow up with your physician in 2-3 days, removal of the sutures after 7 days, return if severe pain, swelling, redness, discharge or fever> 102 F!
[2019-02-14 18:38] VITALS: BP 158/64; PULSE 70; O2SAT 95
== END 2019-02-14 18:42 | disposition home or self-care (01) ==
LOC: ED 17:11
DX: S61.512A Laceration without foreign body of left wrist, initial encounter (principal); W31.89XA Contact with other specified machinery, initial encounter; Z79.899 Other long term (current) drug therapy; I10 Essential (primary) hypertension; E78.00 Pure hypercholesterolemia, unspecified; I25.10 Atherosclerotic heart disease of native coronary artery without angina pectoris
CPT/HCPCS: 12001; 96372; 99283

== ENCOUNTER 2019-04-21 06:01 | Day surgery (SDC) | payer MEDICARE ==
--- NOTE | 2019-04-19 13:49 | HP ---
DATE OF SURGERY: 04/21/2019 ANTICIPATED PROCEDURE: EGD. HISTORY OF PRESENT ILLNESS: The patient has dysphagia worse with solids get stuck in the back of the throat. PAST MEDICAL HISTORY: ALLERGIES: NONE. MEDICATIONS: None. PAST SURGICAL HISTORY: None recent. SOCIAL HISTORY: Negative. FAMILY HISTORY: Negative. REVIEW OF SYSTEMS: CVS: Negative. PULMONARY: Negative. PHYSICAL EXAMINATION: VITAL SIGNS: Normal. CHEST: Clear. COR: Regular. ABDOMEN: Satisfactory. IMPRESSION: Dysphagia. PLAN: EGD.
[~2019-04-21 06:01] MED LIST: Lactated Ringers 1,000 ML IV SCH
[2019-04-21] MEDS ORDERED: DIPRIVAN 200 MG/20 ML IV ONE (07:43)
[2019-04-21] MEDS ORDERED: Ketamine HCl 50 MG/ML ONE (07:44)
[2019-04-21 09:18] VITALS: O2SAT 96
[2019-04-21 09:26] VITALS: BP 131/62; PULSE 51
--- NOTE | 2019-04-21 13:46 | OP ---
SURGERY DATE/TIME: 04/21/2019829 PREOPERATIVE DIAGNOSIS: Dysphagia. POSTOPERATIVE DIAGNOSES: 1) Presbyesophagus. 2) Grade 2/3 gastroesophageal reflux disease. PROCEDURE: EGD. SURGEON: Guillermo Mckeon M.D. ANESTHESIA: MAC. COMPLICATIONS: None. CONDITION: Stable. INDICATION: A patient requiring evaluation. DESCRIPTION OF PROCEDURE: Taken to endoscopy. MAC sedation provided. Scope introduced. Pharyngoesophageal junction normal. Esophagus normal down to gastroesophageal junction. Grade 2/3 gastroesophageal reflux disease. Of interest, there was not a single contraction coming down through here. Fundus, body and antrum satisfactory. No hiatal hernia. Pylorus satisfactory. Duodenal bulb satisfactory. Second portion satisfactory. The scope withdrawn and looped upon itself. No hiatal hernia from below. IMPRESSION: 1) Presbyesophagus. 2) Mild gastroesophageal reflux disease 2/3. PLAN: The patient's predominant problem is presbyesophagus. He basically has no contractions. He needs to set up for three to four hours after eating. He is to drink lots of liquids. He needs to chew well. There is no retained food. There is no organic obstruction.
== END 2019-04-21 09:45 | disposition home or self-care (01) ==
LOC: SDC 06:01
PROVIDERS: ATTEND Surgery
DX: K22.8 Other specified diseases of esophagus (principal); K21.9 Gastro-esophageal reflux disease without esophagitis
CPT/HCPCS: 99100; J2704

== ENCOUNTER 2019-05-05 01:29 | Emergency (ER) | payer MEDICARE ==
--- NOTE | 2019-05-05 01:35 | ERPHSYRPT ---
- History of Present Illness Time Seen by Provider: 05/05/19 01:35 Source: patient Exam Limitations: no limitations Physician History: 69 y/o white male presents with shaking chills that began at 0030 this am. pt denies cough, sore throat and abd pain. he denies cp. he feels a little week. pt did fall against metal at home yesterday. mild ooze from site because he is on anticoag tx. Timing/Duration: today Severity: mild Modifying Factors: Improves With: nothing Associated Symptoms: chills, fever, weakness, No nausea, No vomiting, No abdominal pain, No diaphoresis, No cough Allergies/Adverse Reactions: levofloxacin Allergy (Intermediate, Verified 04/21/19 06:20) Hives Home Medications: Atenolol 12.5 mg PO HS 08/02/16 [History] Lovastatin 20 mg PO HS 08/02/16 [History] Dronedarone Hydrochloride 400* [Multaq 400 MG] 400 mg PO BID 09/29/16 [ History] Fluticasone/Vilanterol [Breo Ellipta 200-25 Mcg INH] 1 each IH DAILY 03/10/17 [ History] Albuterol Sulfate [Proair Respiclick] 90 mcg IH DAILY 11/25/18 [History] Cholecalciferol (Vitamin D3) [D3-2000] 2,000 unit PO HS 11/25/18 [History] Finasteride 5 mg [Proscar 5 MG] 5 mg PO HS 11/25/18 [History] Gabapentin 300 mg PO TID 11/25/18 [History] Ipratropium [place] 0.2 mg IH QID 11/25/18 [History] Levothyroxine Sodium 88 Mcg [Synthroid 88 Mcg] 88 mcg PO DAILY 11/25/18 [ History] Clopidogrel Bisulfate [Clopidogrel] 75 mg PO HS 01/03/19 [History] Aspirin EC 81 mg [Ecotrin 81 mg] 1 tab PO DAILY 04/15/19 [History] Loratadine 10 mg [Claritin 10 mg] 1 tab PO DAILY 04/15/19 [History] PANTOPRAZOLE 40 mg Tablet [Protonix 40MG Tablet] 40 mg PO DAILY 04/15/19 [ History] Triamcinolone 0.025% Cream [Triamcinolone Acetonide] 15 gm TP UD 04/15/19 [ History] Cyanocobalamin (Vitamin B-12) [Vitamin B12] 1,000 mcg PO BID 05/05/19 [History] Hx Tetanus, Diphtheria Vaccination/Date Given: Yes Hx Influenza Vaccination/Date Given: Yes Hx Pneumococcal Vaccination/Date Given: Yes - Review of Systems Constitutional: Fever, Chills, Weakness Eyes: No Symptoms Ears, Nose, & Throat: No Symptoms Respiratory: No Symptoms Cardiac: No Symptoms Abdominal/Gastrointestinal: No Symptoms Genitourinary Symptoms: No Symptoms Musculoskeletal: No Symptoms Skin: Other (skin tear right upper arm) Neurological: No Symptoms Psychological: No Symptoms Endocrine: No Symptoms Hematologic/Lymphatic: No Symptoms Immunological/Allergic: No Symptoms All Other Systems: Reviewed and Negative - Past Medical History Pertinent Past Medical History: Yes Neurological History: No Pertinent History ENT History: No Pertinent History Cardiac History: Coronary Artery Disease, Hypertension Respiratory History: Asthma, COPD, Emphysema, Sleep Apnea Endocrine Medical History: Hypothyroidism Musculoskeletal History: No Pertinent History GI Medical History: No Pertinent History History: No Pertinent History Psycho-Social History: No Pertinent History Male Reproductive Disorders: No Pertinent History - Past Surgical History Past Surgical History: Yes Neuro Surgical History: No Pertinent History Cardiac: Cardiac Catheterization, Cardiac Stent Respiratory: No Pertinent History Gastrointestinal: Cholecystectomy Genitourinary: No Pertinent History Musculoskeletal: Other Male Surgical History: Other Other Surgical History: Mediastinoscopy and " urologic procedure." - Social History Smoking Status: Never smoker Exposure to second hand smoke: Yes Alcohol Use: None Drug Use: none Patient Lives Alone: No Significant Family History: no pertinent family hx - Nursing Vital Signs Nursing Vital Signs: Initial Vital Signs Temperature 99.0 F 05/05/19 01:36 Pulse Rate 80 05/05/19 01:36 Respiratory Rate 18 05/05/19 01:36 Blood Pressure 146/75 05/05/19 01:36 O2 Sat by Pulse Oximetry 95 05/05/19 01:36 Pain Scale Pain Intensity 0 - Physical Exam General Appearance: no apparent distress, alert, anxiety Eye Exam: PERRL/EOMI, eyes nml inspection Ears, Nose, Throat Exam: normal ENT inspection, moist mucous membranes Neck Exam: normal inspection, non-tender, supple, full range of motion Respiratory Exam: normal breath sounds, lungs clear, airway intact, No chest tenderness, No respiratory distress Cardiovascular Exam: regular rate/rhythm, normal heart sounds, normal peripheral pulses Gastrointestinal/Abdomen Exam: soft, normal bowel sounds, No tenderness Rectal Exam: not done Back Exam: normal inspection, normal range of motion, vertebral tenderness, No CVA tenderness Extremity Exam: normal inspection, normal range of motion, No pelvis stable Neurologic Exam: alert, oriented x 3, cooperative, experience designer II-XII nml as tested Skin Exam: normal color, warm, dry, other (small non bleeding skin tear right upper lateral arm) Lymphatic Exam: No adenopathy SpO2 Interpretation: normal O2 Delivery: Room Air - Course Nursing assessment & vital signs reviewed: Yes EKG Interpreted by Me: RATE (73), NORMAL AXIS, Left [place] Deviation, NORMAL INTERVALS, NORMAL QRS, Other (no change when compared to ekg dated 01/05/19) Ordered Tests: Active Orders 24 hr Category Date Time Status Lock Stitch Channeler STAT Care 05/05/19 01:46 Active IV Insertion STAT Care 05/05/19 01:45 Active Pulse Oximetry (ED) STAT Care 05/05/19 01:45 Active CHEST 1 VIEW (PORTABLE) Stat Exams 05/05/19 01:46 Taken BLOOD CULTURE Stat Lab 05/05/19 02:03 Received CBC W DIFF Stat Lab 05/05/19 02:00 Completed CMP Stat Lab 05/05/19 02:00 Completed Lactic Acid Stat Lab 05/05/19 02:20 Completed [place] Screen Stat Lab 05/05/19 02:00 Completed TROPONIN Q3H Lab 05/05/19 02:00 Completed TROPONIN Q3H Lab 05/05/19 05:25 Completed TROPONIN Q3H Lab 05/05/19 08:15 Ordered TROPONIN Q3H Lab 05/05/19 11:15 Ordered TROPONIN Q3H Lab 05/05/19 14:15 Ordered UA W/RFX UR CULTURE Stat Lab 05/05/19 02:18 Completed Medication Summary Discontinued Medications Generic Name Dose Route Start Last Admin Trade Name Freq PRN Reason Stop Dose Admin Acetaminophen 650 mg 05/05/19 01:45 05/05/19 02:09 Tylenol 325 Mg PO 05/05/19 01:46 650 mg STAT STA Administration Acetaminophen Confirm 05/05/19 02:08 Tylenol 325 Mg Administered 05/05/19 02:09 Dose 650 mg .ROUTE .STK-MED ONE Sodium Chloride 1,000 mls @ 999 mls/hr 05/05/19 01:45 05/05/19 03:15 Sodium Chloride 0.9% 1000 Ml IV 05/05/19 02:45 Infused .Q1H1M STA Infusion Sodium Chloride Confirm 05/05/19 02:08 Sodium Chloride 0.9% 1000 Ml Administered 05/05/19 02:09 Dose 1,000 mls @ ud .ROUTE .STK-MED ONE Sodium Chloride 500 mls @ 500 mls/hr 05/05/19 04:14 05/05/19 05:17 Sodium Chloride 0.9% 500 Ml IV 05/05/19 05:13 Infused .Q1H ONE Infusion Sodium Chloride Confirm 05/05/19 04:15 Sodium Chloride 0.9% 500 Ml Administered 05/05/19 04:16 Dose 500 mls @ ud IV .STK-MED ONE Lab/Rad Data: Laboratory Result Diagrams 05/05/19 02:00 05/05/19 02:00 Laboratory Results 05/05/19 05/05/19 05/05/19 Range/Units 05:25 02:20 02:18 WBC (4.0-10.5) K/mm3 RBC (4.1-5.6) M/mm3 Hgb (12.5-18.0) gm/dl Hct (42-50) % MCV (78-100) fl MCH (26-32) pg MCHC (32-36) g/dl RDW (11.5-14.0) % Plt Count (150-450) K/mm3 MPV (6-9.5) fl Gran % (36.0-66.0) % Eos # (Auto) (0-0.5) Absolute Lymphs (auto) (1.0-4.6) Absolute Monos (auto) (0.0-1.3) Lymphocytes % (24.0-44.0) % Monocytes % (0.0-12.0) % Eosinophils % (0.00-5.0) % Basophils % (0.0-0.4) % Absolute Granulocytes (1.4-6.9) Basophils # (0-0.4) Sodium (137-145) mmol/L Potassium (3.5-5.1) mmol/L Chloride (98-107) mmol/L Carbon Dioxide (22-30) mmol/L Anion Gap (5-15) MEQ/L BUN (9-20) mg/dL Creatinine (0.66-1.25) mg/dL Estimated GFR ML/MIN Glucose (74-106) mg/dL Lactic Acid 1.1 (0.4-2.0) Calcium (8.4-10.2) mg/dL Total Bilirubin (0.2-1.3) mg/dL AST (17-59) U/L ALT (0-50) U/L Alkaline Phosphatase (38-126) U/L Troponin I < 0.012 (0.000-0.034) ng/mL Serum Total Protein (6.3-8.2) g/dL Albumin (3.5-5.0) g/dL Urine Color YELLOW (YELLOW) Urine Appearance CLEAR (CLEAR) Urine pH 5.0 (5-6) Ur Specific [place] 1.023 (1.005-1.025) Urine Protein NEGATIVE (Negative) Urine Ketones NEGATIVE (NEGATIVE) Urine Blood NEGATIVE (0-5) Giovanni/ul Urine Nitrite NEGATIVE (NEGATIVE) Urine Bilirubin NEGATIVE (NEGATIVE) Urine Urobilinogen NEGATIVE (0-1) mg/dL Ur Leukocyte Esterase NEGATIVE (NEGATIVE) Urine WBC (Auto) 0-2 (0-5) /HPF Urine RBC (Auto) NONE (0-2) /HPF U Epithel Cells (Auto) NONE (FEW) /HPF Urine Bacteria (Auto) NONE SEEN (NEGATIVE) /HPF Urine Mucus (Auto) SLIGHT (NEGATIVE) /HPF Urine Culture Reflexed NO (NO) Urine Glucose NEGATIVE (NEGATIVE) mg/dL Monoscreen (Negative) Influenza Type A Ag (NEGATIVE) Influenza Type B Ag (NEGATIVE) RSV (PCR) (Negative) Group A Strep Antibody (NEGATIVE) 05/05/19 05/05/19 05/05/19 Range/Units 02:03 02:00 02:00 WBC (4.0-10.5) K/mm3 RBC (4.1-5.6) M/mm3 Hgb (12.5-18.0) gm/dl Hct (42-50) % MCV (78-100) fl MCH (26-32) pg MCHC (32-36) g/dl RDW (11.5-14.0) % Plt Count (150-450) K/mm3 MPV (6-9.5) fl Gran % (36.0-66.0) % Eos # (Auto) (0-0.5) Absolute Lymphs (auto) (1.0-4.6) Absolute Monos (auto) (0.0-1.3) Lymphocytes % (24.0-44.0) % Monocytes % (0.0-12.0) % Eosinophils % (0.00-5.0) % Basophils % (0.0-0.4) % Absolute Granulocytes (1.4-6.9) Basophils # (0-0.4) Sodium (137-145) mmol/L Potassium (3.5-5.1) mmol/L Chloride (98-107) mmol/L Carbon Dioxide (22-30) mmol/L Anion Gap (5-15) MEQ/L BUN (9-20) mg/dL Creatinine (0.66-1.25) mg/dL Estimated GFR ML/MIN Glucose (74-106) mg/dL Lactic Acid (0.4-2.0) Calcium (8.4-10.2) mg/dL Total Bilirubin (0.2-1.3) mg/dL AST (17-59) U/L ALT (0-50) U/L Alkaline Phosphatase (38-126) U/L Troponin I < 0.012 (0.000-0.034) ng/mL Serum Total Protein (6.3-8.2) g/dL Albumin (3.5-5.0) g/dL Urine Color (YELLOW) Urine Appearance (CLEAR) Urine pH (5-6) Ur Specific [place] (1.005-1.025) Urine Protein (Negative) Urine Ketones (NEGATIVE) Urine Blood (0-5) Giovanni/ul Urine Nitrite (NEGATIVE) Urine Bilirubin (NEGATIVE) Urine Urobilinogen (0-1) mg/dL Ur Leukocyte Esterase (NEGATIVE) Urine WBC (Auto) (0-5) /HPF Urine RBC (Auto) (0-2) /HPF U Epithel Cells (Auto) (FEW) /HPF Urine Bacteria (Auto) (NEGATIVE) /HPF Urine Mucus (Auto) (NEGATIVE) /HPF Urine Culture Reflexed (NO) Urine Glucose (NEGATIVE) mg/dL Monoscreen NEGATIVE (Negative) Influenza Type A Ag NEGATIVE (NEGATIVE) Influenza Type B Ag NEGATIVE (NEGATIVE) RSV (PCR) NEGATIVE (Negative) Group A Strep Antibody NEGATIVE (NEGATIVE) 05/05/19 05/05/19 Range/Units 02:00 02:00 WBC 10.6 H (4.0-10.5) K/mm3 RBC 4.33 (4.1-5.6) M/mm3 Hgb 14.3 (12.5-18.0) gm/dl Hct 40.9 L (42-50) % MCV 94.5 (78-100) fl MCH 33.0 H (26-32) pg MCHC 35.0 (32-36) g/dl RDW 14.3 H (11.5-14.0) % Plt Count 153 (150-450) K/mm3 MPV 9.5 (6-9.5) fl Gran % 74.0 H (36.0-66.0) % Eos # (Auto) 0.53 H (0-0.5) Absolute Lymphs (auto) 1.69 (1.0-4.6) Absolute Monos (auto) 0.52 (0.0-1.3) Lymphocytes % 15.9 L (24.0-44.0) % Monocytes % 4.9 (0.0-12.0) % Eosinophils % 5.0 (0.00-5.0) % Basophils % 0.2 (0.0-0.4) % Absolute Granulocytes 7.87 H (1.4-6.9) Basophils # 0.02 (0-0.4) Sodium 145 (137-145) mmol/L Potassium 3.5 (3.5-5.1) mmol/L Chloride 110 H (98-107) mmol/L Carbon Dioxide 23 (22-30) mmol/L Anion Gap 15.2 H (5-15) MEQ/L BUN 15 (9-20) mg/dL Creatinine 1.18 (0.66-1.25) mg/dL Estimated GFR > 60.0 ML/MIN Glucose 105 (74-106) mg/dL Lactic Acid (0.4-2.0) Calcium 9.3 (8.4-10.2) mg/dL Total Bilirubin 1.30 (0.2-1.3) mg/dL AST 49 (17-59) U/L ALT 22 (0-50) U/L Alkaline Phosphatase 58 (38-126) U/L Troponin I (0.000-0.034) ng/mL Serum Total Protein 7.4 (6.3-8.2) g/dL Albumin 4.4 (3.5-5.0) g/dL Urine Color (YELLOW) Urine Appearance (CLEAR) Urine pH (5-6) Ur Specific [place] (1.005-1.025) Urine Protein (Negative) Urine Ketones (NEGATIVE) Urine Blood (0-5) Giovanni/ul Urine Nitrite (NEGATIVE) Urine Bilirubin (NEGATIVE) Urine Urobilinogen (0-1) mg/dL Ur Leukocyte Esterase (NEGATIVE) Urine WBC (Auto) (0-5) /HPF Urine RBC (Auto) (0-2) /HPF U Epithel Cells (Auto) (FEW) /HPF Urine Bacteria (Auto) (NEGATIVE) /HPF Urine Mucus (Auto) (NEGATIVE) /HPF Urine Culture Reflexed (NO) Urine Glucose (NEGATIVE) mg/dL Monoscreen (Negative) Influenza Type A Ag (NEGATIVE) Influenza Type B Ag (NEGATIVE) RSV (PCR) (Negative) Group A Strep Antibody (NEGATIVE) - Progress Progress: improved, re-examined Progress Note: 05/05/19 06:45 cxr- no acute process Counseled pt/family regarding: lab results, diagnosis, need for follow-up, rad results - Departure Departure Disposition: Home Clinical Impression: Weakness Condition: Stable Critical Care Time: No Referrals: KAYKAY CARRASQUILLO [Primary Care Provider] - Additional Instructions: drink plenty of fluids. follow up with primary care doctors office today to arrange follow up appointment
[2019-05-05] MEDS ORDERED: TYLENOL 325 MG PO STA (01:45)
[2019-05-05] MEDS ORDERED: Sodium Chloride 0.9% 1000 ML 1,000 ML IV STA (01:45)
[2019-05-05 02:07] LABS: Absolute Neutrophil Ct (ANC) 7.87 (1.4-6.9); BASOPHIL % 0.2 % (0.0-0.4); Basophil (Absolute #) 0.02 (0-0.4); Eosinophil (Absolute #) 0.53 (0-0.5); Hematocrit 40.9 % (42-50); Hemoglobin 14.3 gm/dl (12.5-18.0); Lymphocyte (Absolute #) 1.69 (1.0-4.6); Lymphocytes % 15.9 % (24.0-44.0); Mean Cell Volume 94.5 fl (78-100); Mean Platelet Volume 9.5 fl (6-9.5); Monocyte (Absolute #) 0.52 (0.0-1.3); Monocytes % 4.9 % (0.0-12.0); Platelet Count 153 K/mm3 (150-450); Red Blood Count 4.33 M/mm3 (4.1-5.6); Red Cell Distribution Width 14.3 % (11.5-14.0); White Blood Count 10.6 K/mm3 (4.0-10.5)
[2019-05-05] MEDS ORDERED: TYLENOL 325 MG ONE (02:08)
[2019-05-05] MEDS ORDERED: Sodium Chloride 0.9% 1000 ML 1,000 ML ONE (02:08)
[2019-05-05 02:20] LABS: ALBUMIN 4.4 g/dL (3.5-5.0); ALKALINE PHOSPHATASE 58 U/L (38-126); ANION GAP 15.2 MEQ/L (5-15); BLOOD UREA NITROGEN 15 mg/dL (9-20); CHLORIDE 110 mmol/L (98-107); Calcium 9.3 mg/dL (8.4-10.2); Carbon Dioxide 23 mmol/L (22-30); Creatinine 1 1.18 mg/dL (0.66-1.25); Glucose 105 mg/dL (74-106); Potassium 3.5 mmol/L (3.5-5.1); SGOT/AST 49 U/L (17-59); SGPT/ALT 22 U/L (0-50); SODIUM 145 mmol/L (137-145); Total Protein 7.4 g/dL (6.3-8.2)
[2019-05-05 02:23] LABS: Appearance CLEAR (CLEAR); Bilirubin NEGATIVE (NEGATIVE); Blood NEGATIVE Ery/ul (0-5); Glucose NEGATIVE (NEGATIVE); Ketones NEGATIVE (NEGATIVE); Leukocyte Esterase NEGATIVE (NEGATIVE); Mucus SLIGHT /HPF (NEGATIVE); Nitrite NEGATIVE (NEGATIVE); Protein,Urine Dip NEGATIVE (Negative); Specific Gravity 1.023 (1.005-1.025); Urobilinogen NEGATIVE mg/dL (0-1); WBC 0-2 /HPF (0-5)
[2019-05-05 02:39] LABS: Group A Strep NEGATIVE (NEGATIVE); INFLUENZA A NEGATIVE (NEGATIVE); INFLUENZA B NEGATIVE (NEGATIVE); RESPIRATORY SYNCTIAL VIRUS NEGATIVE (Negative)
[2019-05-05 02:40] LABS: Bacteria NONE SEEN /HPF (NEGATIVE)
[2019-05-05] MEDS ORDERED: Sodium Chloride 0.9% 500 ML 500 ML IV ONE ×2 (04:14→04:15)
[2019-05-05 06:43] VITALS: BP 142/62; PULSE 61; O2SAT 96
--- NOTE | 2019-05-05 09:45 | XRAY ---
Indication: Fever and chills. Comparison: January 03, 2019. Portable chest demonstrates normal heart and lungs with again a few left lung calcified granulomas. Bony thorax intact. No new/acute findings. Comment: Preliminary interpretation was made by [facility]. No discrepancy.
== END 2019-05-05 07:00 | disposition home or self-care (01) ==
LOC: ED 01:29
DX: R53.1 Weakness (principal); J44.9 Chronic obstructive pulmonary disease, unspecified
CPT/HCPCS: 36000; 36415; 71045; 80053; 81001; 83605; 84484; 85025; 86308; 87040; 87631; 87651; 93005; 93041; 94760; 96360; 96361; 99284; A9270-GY

== ENCOUNTER 2020-02-28 09:43 | Emergency (ER) | payer MEDICARE ==
[2020-02-28 10:08] VITALS: BP 143/68; PULSE 50; O2SAT 97
--- NOTE | 2020-02-28 10:27 | ERPHSYRPT ---
- History of Present Illness Source: patient Exam Limitations: no limitations Patient Subjective Stated Complaint: Left hand injury Triage Nursing Assessment: BLISTER NOTED TO L HAND, NO DRAINAGE NOTED, PT ABLE TO MOVE ALL FINGERS WITHOUT DIFFICULTY Physician History: 70 yo wm under who [facility] L hand wound which was almost resolved presents w a bullae on his L hand. Pt has minimal pain and denies fever/new trauma. He is not on antibiotics and is R handed. Occurred: yesterday Method of Injury: unknown Quality: other (Mild pain at best) Severity of Pain-Max: mild Severity of Pain-Current: mild Extremities Pain Location: hand: left Modifying Factors: Improves With: nothing Associated Symptoms: none Allergies/Adverse Reactions: levofloxacin Allergy (Intermediate, Verified 02/28/20 09:53) Hives Home Medications: Atenolol 12.5 mg PO HS 08/02/16 [History] Lovastatin 20 mg PO HS 08/02/16 [History] Dronedarone Hydrochloride 400* [Multaq 400 MG] 400 mg PO BID 09/29/16 [History] Fluticasone/Vilanterol [Breo Ellipta 200-25 Mcg INH] 1 each IH DAILY 03/10/17 [History] Albuterol Sulfate [Proair Respiclick] 90 mcg IH DAILY 11/25/18 [History] Cholecalciferol (Vitamin D3) [D3-2000] 2,000 unit PO HS 11/25/18 [History] Finasteride 5 mg [Proscar 5 MG] 5 mg PO HS 11/25/18 [History] Gabapentin 300 mg PO TID 11/25/18 [History] Ipratropium [place] 0.2 mg IH QID 11/25/18 [History] Levothyroxine Sodium 88 Mcg [Synthroid 88 Mcg] 88 mcg PO DAILY 11/25/18 [History] Clopidogrel Bisulfate [Clopidogrel] 75 mg PO HS 01/03/19 [History] Aspirin EC 81 mg [Ecotrin 81 mg] 1 tab PO DAILY 04/15/19 [History] Loratadine 10 mg [Claritin 10 mg] 1 tab PO DAILY 04/15/19 [History] PANTOPRAZOLE 40 mg Tablet [Protonix 40MG Tablet] 40 mg PO DAILY 04/15/19 [History] Triamcinolone 0.025% Cream [Triamcinolone Acetonide] 15 gm TP UD 04/15/19 [History] Cyanocobalamin (Vitamin B-12) [Vitamin B12] 1,000 mcg PO BID 05/05/19 [History] Hx Tetanus, Diphtheria Vaccination/Date Given: Yes Hx Influenza Vaccination/Date Given: Yes Hx Pneumococcal Vaccination/Date Given: Yes Immunizations Up to Date: Yes Travel Risk - International Travel Have you traveled outside of the country in past 3 weeks: No - Coronavirus Screening Are you exhibiting any of the following symptoms?: No Close contact with a COVID-19 positive Pt in past 14-21 Days: No - Review of Systems Constitutional: No Symptoms Eyes: No Symptoms Ears, Nose, & Throat: No Symptoms Respiratory: No Symptoms Cardiac: No Symptoms Abdominal/Gastrointestinal: No Symptoms Genitourinary Symptoms: No Symptoms Musculoskeletal: No Symptoms Neurological: No Symptoms Psychological: No Symptoms Endocrine: No Symptoms Hematologic/Lymphatic: No Symptoms Immunological/Allergic: No Symptoms - Past Medical History Pertinent Past Medical History: Yes Neurological History: No Pertinent History ENT History: No Pertinent History Cardiac History: Coronary Artery Disease, Hypertension Respiratory History: Asthma, COPD, Emphysema, Sleep Apnea Endocrine Medical History: Hypothyroidism Musculoskeletal History: No Pertinent History GI Medical History: No Pertinent History History: No Pertinent History Psycho-Social History: No Pertinent History Male Reproductive Disorders: No Pertinent History - Past Surgical History Past Surgical History: Yes Neuro Surgical History: No Pertinent History Cardiac: Cardiac Catheterization, Cardiac Stent Respiratory: No Pertinent History Gastrointestinal: Cholecystectomy Genitourinary: No Pertinent History Musculoskeletal: Other Male Surgical History: Other Other Surgical History: Mediastinoscopy and " urologic procedure." - Social History Smoking Status: Never smoker Exposure to second hand smoke: No Alcohol Use: None Drug Use: none Patient Lives Alone: No Significant Family History: no pertinent family hx - Nursing Vital Signs Nursing Vital Signs: Initial Vital Signs Temperature 97.9 F 02/28/20 09:53 Pulse Rate 50 L 02/28/20 09:53 Respiratory Rate 16 02/28/20 09:53 Blood Pressure 143/68 02/28/20 09:53 O2 Sat by Pulse Oximetry 97 02/28/20 09:53 Pain Scale Pain Intensity 5 - Physical Exam General Appearance: no apparent distress Eyes, Ears, Nose, Throat Exam: normal ENT inspection, TMs normal, pharynx normal Neck Exam: normal inspection, non-tender, supple, full range of motion, No Brudzinski, No Kernig's Cardiovascular/Respiratory Exam: regular rate/rhythm (Faint rales at bases B) Abdominal Exam: non-tender, soft Back Exam: normal inspection, normal range of motion, No CVA tenderness Shoulder Exam: normal inspection, non-tender, no evidence of injury Elbow/Forearm Exam: normal inspection, non-tender, no evidence of injury Wrist Exam: normal inspection, non-tender, no evidence of injury Hand Exam: non-tender (Small blood filled bullae on L dorsal 5th metacarpal/No exudate/NTTP/Good radial pulse, distal sensation, and capillary return) Neuro/Tendon Exam: normal sensation, normal motor functions, normal tendon functions Mental Status Exam: alert, oriented x 3, cooperative Skin Exam: normal color, warm, dry, No rash SpO2 Interpretation: normal SpO2: 97 O2 Delivery: Room Air - Course Nursing assessment & vital signs reviewed: Yes - Progress Progress: unchanged Progress Note: 02/28/20 10:27 Pt w L dorsal, blood filled hand bullae. Although no evidence of infection at this time, will start doxycycline and have pt follow up w [facility] on 03/01/20. Counseled pt/family regarding: need for follow-up - Departure Departure Disposition: Home Clinical Impression: Bullae Condition: Stable Critical Care Time: No Referrals: [facility] [NON-STAFF PHY W/O PRIVILEGES] - Instructions: [facility] [place] Additional Instructions: Wash area twice a day with soap/water Follow up with wound care center on 03/01/20 Return to ER for increasing pain/temperature greater than 100.5/increasing swelling or redness Prescriptions: Doxycycline Monohydrate 100 mg PO BID #14 tablet
== END 2020-02-28 10:43 | disposition home or self-care (01) ==
LOC: ED 09:43
DX: R23.8 Other skin changes (principal)
CPT/HCPCS: 99283

== ENCOUNTER 2020-12-17 23:29 | Observation (INO) | payer MEDICARE ==
[2020-12-17] MEDS ORDERED: solu-MEDROL 125 MG IV ONE (23:51)
[2020-12-17] MEDS ORDERED: solu-MEDROL 125 MG ONE (23:55)
--- NOTE | 2020-12-18 00:09 | ERPHSYRPT ---
- History of Present Illness Time Seen by Provider: 12/17/20 23:40 Source: patient Exam Limitations: no limitations Patient Subjective Stated Complaint: pt states he has been feeling short of breath since thursday. states has been increasing since. states he thinks he has had a fever at home but has not checked it Triage Nursing Assessment: pt alert and oriented, answers questions approp. pt arrive per ambulance and transfers to [facility] with assist of 3. Physician History: Patient is a 70-year-old male presents to our emergency department for evaluation of shortness of breath. Patient states shortness of breath started on Thursday 3 days ago. Shortness of breath has been progressive. Patient followed up at [facility] today. Patient was treated with a dose of prednisone and doxycycline. Patient was advised that if symptoms continue to worsen he should come to the ED. Patient called 911 and EMS brought patient to our ED for progressive shortness of breath. Patient complains of subjective fever. He has a history of COPD. Patient is a non-smoker. Patient uses 2 L nasal cannula at home when he however he feels short of breath. Patient has a cardiac history. He is got 3 stents. Last cardiac stent was placed 3 years ago. No associated nausea vomiting or diaphoresis. Patient is not a diabetic. Patient voices no other complaints or concerns at this time. Timing/Duration: day(s) (3 days) Activities at Onset: activity Severity of Dyspnea-Max: moderate Severity of Dyspnea-Current: mild Possible Cause: no prior episodes Modifying Factors: Improves With: activity Associated Symptoms: fever, No wheezing, No ankle swelling, No calf pain, No lightheadedness, No leg swelling, No muscle spasms feet, No muscle spasms hands Allergies/Adverse Reactions: levofloxacin Allergy (Intermediate, Verified 12/17/20 23:42) Hives Home Medications: Atenolol 12.5 mg PO HS 08/02/16 [History] Lovastatin 20 mg PO HS 08/02/16 [History] Dronedarone Hydrochloride 400* [Multaq 400 MG] 400 mg PO BID 09/29/16 [History] Fluticasone/Vilanterol [Breo Ellipta 200-25 Mcg INH] 1 each IH DAILY 03/10/17 [History] Albuterol Sulfate [Proair Respiclick] 90 mcg IH Q4HPRN PRN 11/25/18 [History] Cholecalciferol (Vitamin D3) [D3-2000] 2,000 unit PO HS 11/25/18 [History] Finasteride 5 mg [Proscar 5 MG] 5 mg PO HS 11/25/18 [History] Ipratropium [place] 0.2 mg IH QID 11/25/18 [History] Levothyroxine Sodium 88 Mcg [Synthroid 88 Mcg] 88 mcg PO DAILY 11/25/18 [History] Clopidogrel Bisulfate [Clopidogrel] 75 mg PO HS 01/03/19 [History] Aspirin EC 81 mg [Ecotrin 81 mg] 1 tab PO DAILY 04/15/19 [History] Loratadine 10 mg [Claritin 10 mg] 1 tab PO DAILY 04/15/19 [History] PANTOPRAZOLE 40 mg Tablet [Protonix 40MG Tablet] 40 mg PO BID 04/15/19 [History] Cyanocobalamin (Vitamin B-12) [Vitamin B12] 1,000 mcg PO BID 05/05/19 [History] Prednisone 20 mg [Deltasone 20 mg] 40 mg PO DAILY 12/17/20 [History] Hx Tetanus, Diphtheria Vaccination/Date Given: Yes Hx Influenza Vaccination/Date Given: Yes Hx Pneumococcal Vaccination/Date Given: Yes Immunizations Up to Date: Yes Travel Risk - International Travel Have you traveled outside of the country in past 3 weeks: No - Coronavirus Screening Are you exhibiting any of the following symptoms?: Yes Symptoms: Fever, Cough: New Onset, Shortness of Breath - Vaccine Status Have you recieved a Covid-19 vaccination: No - Review of Systems Constitutional: No Symptoms, No Fever, No Chills Eyes: No Symptoms Ears, Nose, & Throat: No Symptoms Respiratory: No Symptoms, No Cough, No Dyspnea Cardiac: No Symptoms, No Chest Pain, No Edema, No Syncope Abdominal/Gastrointestinal: No Symptoms, No Abdominal Pain, No Nausea, No Vomiting, No Diarrhea Genitourinary Symptoms: No Symptoms, No Dysuria Musculoskeletal: No Symptoms, No Back Pain, No Neck Pain Skin: No Symptoms, No Rash Neurological: No Symptoms, No Dizziness, No Focal Weakness, No Sensory Changes Psychological: No Symptoms Endocrine: No Symptoms Hematologic/Lymphatic: No Symptoms Immunological/Allergic: No Symptoms All Other Systems: Reviewed and Negative - Past Medical History Pertinent Past Medical History: Yes Neurological History: No Pertinent History ENT History: No Pertinent History Cardiac History: Coronary Artery Disease, Hypertension Respiratory History: Asthma, COPD, Emphysema, Sleep Apnea Endocrine Medical History: Hypothyroidism Musculoskeletal History: No Pertinent History GI Medical History: No Pertinent History History: No Pertinent History Psycho-Social History: No Pertinent History Male Reproductive Disorders: No Pertinent History - Past Surgical History Past Surgical History: Yes Neuro Surgical History: No Pertinent History Cardiac: Cardiac Catheterization, Cardiac Stent Respiratory: No Pertinent History Gastrointestinal: Cholecystectomy Genitourinary: No Pertinent History Musculoskeletal: Other Male Surgical History: Other Other Surgical History: Mediastinoscopy and " urologic procedure." - Social History Smoking Status: Never smoker Exposure to second hand smoke: Yes Alcohol Use: None Drug Use: none Patient Lives Alone: No Significant Family History: no pertinent family hx - Nursing Vital Signs Nursing Vital Signs: Initial Vital Signs Temperature 98.4 F 12/17/20 23:31 Pulse Rate 78 12/17/20 23:31 Respiratory Rate 22 12/17/20 23:31 Blood Pressure 138/63 12/17/20 23:31 O2 Sat by Pulse Oximetry 97 12/17/20 23:31 Pain Scale Pain Intensity 4 - Physical Exam General Appearance: no apparent distress, alert Eye Exam: PERRL/EOMI Ears, Nose, Throat Exam: hearing grossly normal, normal ENT inspection, normal pharynx Neck Exam: normal inspection, supple Respiratory Exam: normal breath sounds Cardiovascular/Chest Exam: normal heart sounds, regular rate/rhythm Abdominal/Gastrointestinal Exam: soft, No tenderness, No distention, No mass Extremity Exam: non-tender, normal range of motion, normal inspection, no calf tenderness, no pedal edema Neurologic Exam: alert, oriented x 3, 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 Severe calcified coronary artery disease. 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 And Nutrition Services Supervisor STAT Care 12/17/20 23:40 Active EKG-ER Only STAT Care 12/17/20 23:39 Active IV Insertion STAT Care 12/17/20 23:39 Active Pulse Oximetry (ED) STAT Care 12/17/20 23:39 Active CHEST WITH CONTRAST [CT] Stat Exams 12/18/20 00:46 Taken TROPONIN Q3H Lab 12/18/20 02:45 Ordered TROPONIN Q3H Lab 12/18/20 05:45 Ordered TROPONIN Q3H Lab 12/18/20 08:45 Ordered TROPONIN Q3H Lab 12/18/20 11:45 Ordered UA W/RFX UR CULTURE Stat Lab 12/17/20 23:39 Ordered Respiratory Therapy Assessment DAILY RT 12/18/20 01:06 Active Medication Summary Generic Name Dose Route Start Last Admin Trade Name Freq PRN Reason Stop Dose Admin Albuterol Sulfate 4 puff 12/18/20 00:21 12/18/20 00:55 Ventolin Common Canister IH 01/17/21 00:20 4 puff Q4H PRN PRN Administration SHORTNESS OF BREATH/WHEEZING Discontinued Medications Generic Name Dose Route Start Last Admin Trade Name Freq PRN Reason Stop Dose Admin Methylprednisolone Sodium Succinate 125 mg 12/17/20 23:51 12/17/20 23:57 Solu-Medrol 125 Mg IV 12/17/20 23:52 125 mg STAT ONE Administration Methylprednisolone Sodium Succinate Confirm 12/17/20 23:55 Solu-Medrol 125 Mg Administered 12/17/20 23:56 Dose 125 mg .ROUTE .STK-MED ONE Lab/Rad Data: Laboratory Result Diagrams 12/18/20 00:01 12/18/20 00:01 Laboratory Results 12/18/20 12/18/20 12/18/20 Range/Units 00:01 00:01 00:01 WBC (4.0-10.5) K/mm3 RBC (4.1-5.6) M/mm3 Hgb (12.5-18.0) gm/dl Hct (42-50) % MCV (78-100) fl MCH (26-32) pg MCHC (32-36) g/dl RDW (11.5-14.0) % Plt Count (150-450) K/mm3 MPV (7.5-11.0) fl Gran % (36.0-66.0) % Eos # (Auto) (0-0.5) Absolute Lymphs (auto) (1.0-4.6) Absolute Monos (auto) (0.0-1.3) Lymphocytes % (24.0-44.0) % Monocytes % (0.0-12.0) % Eosinophils % (0.00-5.0) % Basophils % (0.0-0.4) % Absolute Granulocytes (1.4-6.9) Basophils # (0-0.4) D-Dimer 966 H* (215-500) ng/mL Sodium 140 (137-145) mmol/L Potassium 3.9 (3.5-5.1) mmol/L Chloride 108 H (98-107) mmol/L Carbon Dioxide 23 (22-30) mmol/L Anion Gap 12.1 (5-15) MEQ/L BUN 13 (9-20) mg/dL Creatinine 1.37 H (0.66-1.25) mg/dL Estimated GFR 54.3 ML/MIN Glucose 113 H (74-106) mg/dL Calcium 8.8 (8.4-10.2) mg/dL Magnesium 2.0 (1.6-2.3) mg/dL Total Bilirubin 2.10 H (0.2-1.3) mg/dL AST 25 (17-59) U/L ALT 20 (0-50) U/L Alkaline Phosphatase 81 (38-126) U/L Troponin I < 0.012 (0.000-0.034) ng/mL NT-Pro-B Natriuret Pep 187 (0-900) pg/mL Serum Total Protein 6.7 (6.3-8.2) g/dL Albumin 4.2 (3.5-5.0) g/dL 12/18/20 Range/Units 00:01 WBC 5.4 (4.0-10.5) K/mm3 RBC 4.47 (4.1-5.6) M/mm3 Hgb 14.4 (12.5-18.0) gm/dl Hct 43.1 (42-50) % MCV 96.4 (78-100) fl MCH 32.2 H (26-32) pg MCHC 33.4 (32-36) g/dl RDW 15.3 H (11.5-14.0) % Plt Count 131 L (150-450) K/mm3 MPV 9.4 (7.5-11.0) fl Gran % 77.5 H (36.0-66.0) % Eos # (Auto) 0.19 (0-0.5) Absolute Lymphs (auto) 0.74 L (1.0-4.6) Absolute Monos (auto) 0.27 (0.0-1.3) Lymphocytes % 13.8 L (24.0-44.0) % Monocytes % 5.0 (0.0-12.0) % Eosinophils % 3.5 (0.00-5.0) % Basophils % 0.2 (0.0-0.4) % Absolute Granulocytes 4.17 (1.4-6.9) Basophils # 0.01 (0-0.4) D-Dimer (215-500) ng/mL Sodium (137-145) mmol/L Potassium (3.5-5.1) mmol/L Chloride (98-107) mmol/L Carbon Dioxide (22-30) mmol/L Anion Gap (5-15) MEQ/L BUN (9-20) mg/dL Creatinine (0.66-1.25) mg/dL Estimated GFR ML/MIN Glucose (74-106) mg/dL Calcium (8.4-10.2) mg/dL Magnesium (1.6-2.3) mg/dL Total Bilirubin (0.2-1.3) mg/dL AST (17-59) U/L ALT (0-50) U/L Alkaline Phosphatase (38-126) U/L Troponin I (0.000-0.034) ng/mL NT-Pro-B Natriuret Pep (0-900) pg/mL Serum Total Protein (6.3-8.2) g/dL Albumin (3.5-5.0) g/dL - Progress Progress: improved Air Movement: good Blood Culture(s) Obtained: Yes Antibiotics given: Yes (Patient already on doxycycline) Discussed with : Gabe Will see patient in: hospital (full admit) Counseled pt/family regarding: lab results, diagnosis, rad results - Departure Departure Disposition: Home Clinical Impression: COPD exacerbation, Shortness of breath, Acute renal injury, Elevated d-dimer, Thrombocytopenia Condition: Stable Critical Care Time: No Referrals: KENAN VARGAS [Primary Care Provider] - Instructions: Chronic Obstructive Pulmonary Disease
[2020-12-18 00:16] LABS: Absolute Neutrophil Ct (ANC) 4.17 (1.4-6.9); BASOPHIL % 0.2 % (0.0-0.4); Basophil (Absolute #) 0.01 (0-0.4); Eosinophil % 3.5 % (0.00-5.0); Eosinophil (Absolute #) 0.19 (0-0.5); Hematocrit 43.1 % (42-50); Hemoglobin 14.4 gm/dl (12.5-18.0); Lymphocyte (Absolute #) 0.74 (1.0-4.6); Lymphocytes % 13.8 % (24.0-44.0); Mean Cell Volume 96.4 fl (78-100); Mean Corpuscular Hemoglobin 32.2 pg (26-32); Mean Corpuscular Hgb Concent. 33.4 g/dl (32-36); Mean Platelet Volume 9.4 fl (7.5-11.0); Monocyte (Absolute #) 0.27 (0.0-1.3); Neutrophil % 77.5 % (36.0-66.0); Platelet Count 131 K/mm3 (150-450); Red Blood Count 4.47 M/mm3 (4.1-5.6); Red Cell Distribution Width 15.3 % (11.5-14.0); White Blood Count 5.4 K/mm3 (4.0-10.5)
[2020-12-18] MEDS ORDERED: VENTOLIN COMMON CANISTER IH PRN (00:21)
[2020-12-18 00:38] LABS: ALBUMIN 4.2 g/dL (3.5-5.0); ANION GAP 12.1 MEQ/L (5-15); BILIRUBIN,TOTAL 2.1 mg/dL (0.2-1.3); Calcium 8.8 mg/dL (8.4-10.2); Creatinine 1 1.37 mg/dL (0.66-1.25); EST GLOMERULAR FILTRATION RATE 54.3 ML/MIN; Potassium 3.9 mmol/L (3.5-5.1); Total Protein 6.7 g/dL (6.3-8.2)
[2020-12-18 03:44] LABS: INFLUENZA A NEGATIVE (NEGATIVE); INFLUENZA B NEGATIVE (NEGATIVE); RESPIRATORY SYNCTIAL VIRUS NEGATIVE (Negative)
[2020-12-18] MEDS ORDERED: PROVENTIL 2.5 MG/3 ML NEB IH SCH (07:00)
[2020-12-18] MEDS ORDERED: solu-MEDROL 125 MG ONE (07:05)
[2020-12-18] MEDS: solu-MEDROL 125 MG IV SCH ×4 (07:13→23:26)
[2020-12-18] MEDS: PROVENTIL 2.5 MG/3 ML NEB IH SCH ×4 (07:21→19:49)
[2020-12-18 08:04] LABS: Appearance CLEAR (CLEAR); Bilirubin NEGATIVE (NEGATIVE); Blood NEGATIVE Ery/ul (0-5); Glucose NEGATIVE (NEGATIVE); Hyaline Casts 0-2 /LPF (0-2); Ketones NEGATIVE (NEGATIVE); Leukocyte Esterase NEGATIVE (NEGATIVE); Mucus SLIGHT /HPF (NEGATIVE); Nitrite NEGATIVE (NEGATIVE); Protein,Urine Dip NEGATIVE (Negative); Urobilinogen NEGATIVE mg/dL (0-1)
[2020-12-18 08:06] LABS: Bacteria RARE /HPF (NEGATIVE); Epithelial Cells RARE /HPF (FEW); RBC 0-2 /HPF (0-2); WBC 0-2 /HPF (0-5)
--- NOTE | 2020-12-18 08:50 | XRAY ---
Indication: Short of breath. Elevated d-dimer. Multiple contiguous axial images obtained through the chest using 100 cc Isovue 370 contrast and PE protocol. Comparison: June 27, 2017. There is good opacification of the pulmonary arteries to includes the lobar and segmental branches. No pulmonary embolus. Heart remains enlarged. Aorta minimally arteriosclerotic without aneurysm/dissection. No pathologic mediastinal/hilar lymphadenopathy. Lungs again demonstrates bilateral dependent atelectasis and bibasilar fibrosis/scarring more than before. Stable small left lower lobe calcified granuloma. No suspicious pulmonary mass, infiltrate, or effusion. Bony thorax intact again with minimal degenerative changes throughout the spine. Limited upper abdomen again demonstrates fatty liver, cholecystectomy, 13 cm splenomegaly, and splenic calcified granulomas. Impression: 1. Continued negative pulmonary embolus. No new or acute cardiopulmonary abnormalities. 2. Again incidental cardiomegaly, bibasilar atelectasis/scarring, fatty liver, splenomegaly, and old granulomatous disease. Comment: Preliminary interpretation was made by [facility]. No critical discrepancy.
[2020-12-18] MEDS: Sodium Chloride 0.9% 1000 ML 1,000 ML IV SCH ×2 (09:40→22:24)
[2020-12-18] MEDS ORDERED: MEDICATION INTERVENTION MC SCH (11:45)
--- NOTE | 2020-12-18 11:46 | PCM.HP ---
History of Present Illness - Chief Complaint Chief Complaint: COPD exacerbation History of Present Illness: is a 70 year old male pt of mine from [facility] with COPD, CAD, HTN, hyperlipidemia, and hypothyroidism who was admitted through ER for COPD exacerbation. Four days ago he started having increased cough and SOB. Yesterday he saw a provider and was given po doxycycline, but kept getting worse, felt like he was "filling with fluid," so he came to the ER. He was given IV steroids and admitted. D-dimer was elevated but CTA of the chest neg for PE. This morning he is feeling better. On 2L NC. - Review of Systems Respiratory: Cough, Short Of Breath Cardiac: Chest Pain ("very little") All Other Systems: Reviewed and Negative Medications & Allergies Home Medications: Home Medication List Atenolol 12.5 mg PO DAILY 08/02/16 [History Confirmed 12/18/20] Dronedarone Hydrochloride 400* [Multaq 400 MG] 400 mg PO BID 09/29/16 [History Confirmed 12/17/20] Fluticasone/Vilanterol [Breo Ellipta 200-25 Mcg INH] 1 puff IH DAILY 03/10/17 [History Confirmed 12/18/20] Albuterol Sulfate [Proair Respiclick] 2 puffs IH Q6H 11/25/18 [History Confirmed 12/18/20] Cholecalciferol (Vitamin D3) [D3-2000] 2,000 unit PO 11/25/18 [History Confirmed 12/17/20] Finasteride 5 mg [Proscar 5 MG] 5 mg PO HS 11/25/18 [History Confirmed 12/17/20] Clopidogrel Bisulfate [Clopidogrel] 75 mg PO DAILY 01/03/19 [History Confirmed 12/18/20] Aspirin EC 81 mg [Ecotrin 81 mg] 1 tab PO DAILY 04/15/19 [History Confirmed 12/17/20] PANTOPRAZOLE 40 mg Tablet [Protonix 40MG Tablet] 40 mg PO DAILY 04/15/19 [History Confirmed 12/18/20] Doxycycline Monohydrate 100 mg PO BID #14 tablet 02/28/20 [Rx Confirmed 12/17/20] Prednisone 20 mg [Deltasone 20 mg] 20 mg PO UD 12/17/20 [History Confirmed 12/18/20] Allopurinol 100 mg [Zyloprim 100 mg] 100 mg PO DAILY 12/18/20 [History Confirmed 12/18/20] Atorvastatin Calcium [Lipitor 40Mg] 40 mg PO HS 12/18/20 [History Confirmed 12/18/20] Fluticasone Propionate [Flonase NASAL] 1 spray NS DAILY 12/18/20 [History Confirmed 12/18/20] Gabapentin 300 mg [Neurontin 300 mg] 300 mg PO TID 12/18/20 [History Confirmed 12/18/20] Levothyroxine Sodium 75 Mcg [Synthroid 75 Mcg] 75 mcg PO DAILY 12/18/20 [History Confirmed 12/18/20] Allergies/Adverse Reactions: Allergies Allergy/AdvReac Type Severity Reaction Status Date / Time levofloxacin Allergy Intermediate Hives Verified 12/18/20 05:13 - Past Medical History Past Medical History: Yes Neurological History: No Pertinent History ENT History: No Pertinent History Cardiac History: Coronary Artery Disease, Hypertension Respiratory History: COPD, Emphysema, Sleep Apnea Endocrine Medical History: Hypothyroidism Musculoskelatal History: No Pertinent History GI Medical History: No Pertinent History History: No Pertinent History Pyscho-Social History: No Pertinent History Male Reproductive Disorders: No Pertinent History - Past Surgical History Past Surgical History: Yes Neuro Surgical History: No Pertinent History Cardiac History: Cardiac Catheterization, Cardiac Stent Respiratory Surgery: No Pertinent History GI Surgical History: Cholecystectomy Genitourinary Surgical Hx: No Pertinent History Musculskeletal Surgical Hx: Other Male Surgical History: Other Other Surgical History: Mediastinoscopy and " urologic procedure." - Social History Smoking Status: Never smoker Exposure to second hand smoke: No Alcohol: None Drug Use: none Significant Family History: no pertinent family hx - Physical Exam Vital Signs: Vital Signs - 24 hr Temp Pulse Resp BP Pulse Ox 12/18/20 11:04 84 18 91 L 12/18/20 07:39 88 16 91 L 12/18/20 07:38 98.5 F 70 16 102/52 93 L 12/18/20 04:37 97.4 F 65 18 110/57 94 L 12/18/20 04:10 97 12/18/20 04:00 64 17 113/60 97 12/18/20 03:00 68 18 118/60 96 12/18/20 01:06 70 18 96 12/18/20 00:30 70 20 125/61 97 12/17/20 23:40 97 12/17/20 23:31 98.4 F 78 22 138/63 97 General Appearance: no apparent distress, alert Neurologic Exam: oriented x 3, cooperative Eye Exam: eyes nml inspection Ears, Nose, Throat Exam: moist mucous membranes Neck Exam: normal inspection, non-tender, No lymphadenopathy Respiratory Exam: diminished breath sounds (good air exchange), prolonged expirations, No crackles/rales, No rhonchi, No wheezing Cardiovascular Exam: regular rate/rhythm, normal heart sounds, No murmur Gastrointestinal/Abdomen Exam: soft, normal bowel sounds, No tenderness, No distention, No mass, No guarding, No rebound Back Exam: normal inspection, No CVA tenderness Extremity Exam: normal inspection, No pedal edema, No swelling, No tenderness Skin Exam: normal color, warm, dry, No rash Results - Labs Lab/Micro Results: Lab Results-Last 24 Hours 12/18/20 12/18/20 12/18/20 Range/Units 00:01 00:01 00:01 WBC 5.4 (4.0-10.5) K/mm3 RBC 4.47 (4.1-5.6) M/mm3 Hgb 14.4 (12.5-18.0) gm/dl Hct 43.1 (42-50) % MCV 96.4 (78-100) fl MCH 32.2 H (26-32) pg MCHC 33.4 (32-36) g/dl RDW 15.3 H (11.5-14.0) % Plt Count 131 L (150-450) K/mm3 MPV 9.4 (7.5-11.0) fl Gran % 77.5 H (36.0-66.0) % Eos # (Auto) 0.19 (0-0.5) Absolute Lymphs (auto) 0.74 L (1.0-4.6) Absolute Monos (auto) 0.27 (0.0-1.3) Lymphocytes % 13.8 L (24.0-44.0) % Monocytes % 5.0 (0.0-12.0) % Eosinophils % 3.5 (0.00-5.0) % Basophils % 0.2 (0.0-0.4) % Absolute Granulocytes 4.17 (1.4-6.9) Basophils # 0.01 (0-0.4) D-Dimer 966 H* (215-500) ng/mL Sodium 140 (137-145) mmol/L Potassium 3.9 (3.5-5.1) mmol/L Chloride 108 H (98-107) mmol/L Carbon Dioxide 23 (22-30) mmol/L Anion Gap 12.1 (5-15) MEQ/L BUN 13 (9-20) mg/dL Creatinine 1.37 H (0.66-1.25) mg/dL Estimated GFR 54.3 ML/MIN Glucose 113 H (74-106) mg/dL Calcium 8.8 (8.4-10.2) mg/dL Magnesium 2.0 (1.6-2.3) mg/dL Total Bilirubin 2.10 H (0.2-1.3) mg/dL AST 25 (17-59) U/L ALT 20 (0-50) U/L Alkaline Phosphatase 81 (38-126) U/L Troponin I (0.000-0.034) ng/mL NT-Pro-B Natriuret Pep 187 (0-900) pg/mL Serum Total Protein 6.7 (6.3-8.2) g/dL Albumin 4.2 (3.5-5.0) g/dL Urine Color (YELLOW) Urine Appearance (CLEAR) Urine pH (5-6) Ur Specific [place] (1.005-1.025) Urine Protein (Negative) Urine Ketones (NEGATIVE) Urine Blood (0-5) Giovanni/ul Urine Nitrite (NEGATIVE) Urine Bilirubin (NEGATIVE) Urine Urobilinogen (0-1) mg/dL Ur Leukocyte Esterase (NEGATIVE) Urine WBC (Auto) (0-5) /HPF Urine RBC (Auto) (0-2) /HPF U Hyaline Cast (Auto) (0-2) /LPF U Epithel Cells (Auto) (FEW) /HPF Urine Bacteria (Auto) (NEGATIVE) /HPF Urine Mucus (Auto) (NEGATIVE) /HPF Urine Culture Reflexed (NO) Urine Glucose (NEGATIVE) mg/dL Influenza Type A Ag (NEGATIVE) Influenza Type B Ag (NEGATIVE) RSV (PCR) (Negative) SARS-CoV-2 (PCR) (NEGATIVE) 12/18/20 12/18/20 12/18/20 Range/Units 00:01 02:59 03:00 WBC (4.0-10.5) K/mm3 RBC (4.1-5.6) M/mm3 Hgb (12.5-18.0) gm/dl Hct (42-50) % MCV (78-100) fl MCH (26-32) pg MCHC (32-36) g/dl RDW (11.5-14.0) % Plt Count (150-450) K/mm3 MPV (7.5-11.0) fl Gran % (36.0-66.0) % Eos # (Auto) (0-0.5) Absolute Lymphs (auto) (1.0-4.6) Absolute Monos (auto) (0.0-1.3) Lymphocytes % (24.0-44.0) % Monocytes % (0.0-12.0) % Eosinophils % (0.00-5.0) % Basophils % (0.0-0.4) % Absolute Granulocytes (1.4-6.9) Basophils # (0-0.4) D-Dimer (215-500) ng/mL Sodium (137-145) mmol/L Potassium (3.5-5.1) mmol/L Chloride (98-107) mmol/L Carbon Dioxide (22-30) mmol/L Anion Gap (5-15) MEQ/L BUN (9-20) mg/dL Creatinine (0.66-1.25) mg/dL Estimated GFR ML/MIN Glucose (74-106) mg/dL Calcium (8.4-10.2) mg/dL Magnesium (1.6-2.3) mg/dL Total Bilirubin (0.2-1.3) mg/dL AST (17-59) U/L ALT (0-50) U/L Alkaline Phosphatase (38-126) U/L Troponin I < 0.012 < 0.012 (0.000-0.034) ng/mL NT-Pro-B Natriuret Pep (0-900) pg/mL Serum Total Protein (6.3-8.2) g/dL Albumin (3.5-5.0) g/dL Urine Color (YELLOW) Urine Appearance (CLEAR) Urine pH (5-6) Ur Specific [place] (1.005-1.025) Urine Protein (Negative) Urine Ketones (NEGATIVE) Urine Blood (0-5) Giovanni/ul Urine Nitrite (NEGATIVE) Urine Bilirubin (NEGATIVE) Urine Urobilinogen (0-1) mg/dL Ur Leukocyte Esterase (NEGATIVE) Urine WBC (Auto) (0-5) /HPF Urine RBC (Auto) (0-2) /HPF U Hyaline Cast (Auto) (0-2) /LPF U Epithel Cells (Auto) (FEW) /HPF Urine Bacteria (Auto) (NEGATIVE) /HPF Urine Mucus (Auto) (NEGATIVE) /HPF Urine Culture Reflexed (NO) Urine Glucose (NEGATIVE) mg/dL Influenza Type A Ag NEGATIVE (NEGATIVE) Influenza Type B Ag NEGATIVE (NEGATIVE) RSV (PCR) NEGATIVE (Negative) SARS-CoV-2 (PCR) NEGATIVE (NEGATIVE) 12/18/20 12/18/20 12/18/20 Range/Units 05:45 07:50 08:45 WBC (4.0-10.5) K/mm3 RBC (4.1-5.6) M/mm3 Hgb (12.5-18.0) gm/dl Hct (42-50) % MCV (78-100) fl MCH (26-32) pg MCHC (32-36) g/dl RDW (11.5-14.0) % Plt Count (150-450) K/mm3 MPV (7.5-11.0) fl Gran % (36.0-66.0) % Eos # (Auto) (0-0.5) Absolute Lymphs (auto) (1.0-4.6) Absolute Monos (auto) (0.0-1.3) Lymphocytes % (24.0-44.0) % Monocytes % (0.0-12.0) % Eosinophils % (0.00-5.0) % Basophils % (0.0-0.4) % Absolute Granulocytes (1.4-6.9) Basophils # (0-0.4) D-Dimer (215-500) ng/mL Sodium (137-145) mmol/L Potassium (3.5-5.1) mmol/L Chloride (98-107) mmol/L Carbon Dioxide (22-30) mmol/L Anion Gap (5-15) MEQ/L BUN (9-20) mg/dL Creatinine (0.66-1.25) mg/dL Estimated GFR ML/MIN Glucose (74-106) mg/dL Calcium (8.4-10.2) mg/dL Magnesium (1.6-2.3) mg/dL Total Bilirubin (0.2-1.3) mg/dL AST (17-59) U/L ALT (0-50) U/L Alkaline Phosphatase (38-126) U/L Troponin I < 0.012 < 0.012 (0.000-0.034) ng/mL NT-Pro-B Natriuret Pep (0-900) pg/mL Serum Total Protein (6.3-8.2) g/dL Albumin (3.5-5.0) g/dL Urine Color YELLOW (YELLOW) Urine Appearance CLEAR (CLEAR) Urine pH 5.0 (5-6) Ur Specific [place] S3 (1.005-1.025) Urine Protein NEGATIVE (Negative) Urine Ketones NEGATIVE (NEGATIVE) Urine Blood NEGATIVE (0-5) Giovanni/ul Urine Nitrite NEGATIVE (NEGATIVE) Urine Bilirubin NEGATIVE (NEGATIVE) Urine Urobilinogen NEGATIVE (0-1) mg/dL Ur Leukocyte Esterase NEGATIVE (NEGATIVE) Urine WBC (Auto) 0-2 (0-5) /HPF Urine RBC (Auto) 0-2 (0-2) /HPF U Hyaline Cast (Auto) 0-2 (0-2) /LPF U Epithel Cells (Auto) RARE (FEW) /HPF Urine Bacteria (Auto) RARE (NEGATIVE) /HPF Urine Mucus (Auto) SLIGHT (NEGATIVE) /HPF Urine Culture Reflexed NO (NO) Urine Glucose NEGATIVE (NEGATIVE) mg/dL Influenza Type A Ag (NEGATIVE) Influenza Type B Ag (NEGATIVE) RSV (PCR) (Negative) SARS-CoV-2 (PCR) (NEGATIVE) - Radiology Impressions Radiology Exams & Impressions: Radiology Procedures Category Date Time Status CHEST WITH CONTRAST [CT] Stat Exams 12/18/20 00:46 Completed - Other Procedures and Tests Respiratory Therapy 12/18/20 01:06 Respiratory Therapy Assessment DAILY 12/18/20 05:17 Oxygen Nasal Cannula 2 lpm Assessment/Plan (1) COPD exacerbation Current Visit: Yes Status: Acute Assessment & Plan: On IV steroid; will just continue his po doxycycline for now. Code(s): J44.1 - CHRONIC OBSTRUCTIVE PULMONARY DISEASE W (ACUTE) EXACERBATION (2) Coronary artery disease Current Visit: No Status: Chronic Qualifiers: Code(s): I25.10 - ATHSCL HEART DISEASE OF [place] CORONARY ARTERY W/O ANG PCTRS (3) Hypertension Current Visit: No Status: Chronic Qualifiers: Hypertension type: essential hypertension Code(s): I10 - ESSENTIAL (PRIMARY) HYPERTENSION
[2020-12-18] MEDS: ECOTRIN 81 MG PO SCH (12:39)
[2020-12-18] MEDS: TENORMIN 50 MG PO SCH (12:40)
[2020-12-18] MEDS: PLAVIX 75 MG Tablet PO SCH (12:40)
[2020-12-18] MEDS: Multaq 400 MG PO SCH ×2 (12:40→18:31)
[2020-12-18] MEDS: Vibramycin 100 MG PO SCH ×2 (12:43→21:08)
[2020-12-18] MEDS: SYNTHROID 75 MCG PO SCH (12:43)
[2020-12-18] MEDS: ZYLOPRIM 100 MG PO SCH (12:43)
[2020-12-18] MEDS: Protonix 40MG Tablet PO SCH (12:43)
[2020-12-18] MEDS: Flonase NASAL NS SCH (12:45)
[2020-12-18] MEDS: NEURONTIN 300 MG PO SCH ×2 (15:37→21:07)
[2020-12-18] MEDS: Zocor 10MG PO SCH (21:08)
[2020-12-18] MEDS: Proscar 5 MG PO SCH (21:08)
[2020-12-18] MEDS ORDERED: LIPITOR 40MG PO SCH (22:00)
[2020-12-18] MEDS ORDERED: DOXYCYCLINE MONOHYDRATE 100 MG PO SCH (22:00)
[2020-12-19 05:35] LABS: Hematocrit 37.8 % (42-50); Hemoglobin 12.6 gm/dl (12.5-18.0); Mean Cell Volume 95.9 fl (78-100); Mean Corpuscular Hgb Concent. 33.3 g/dl (32-36); Mean Platelet Volume 9.6 fl (7.5-11.0); Platelet Count 139 K/mm3 (150-450); Red Blood Count 3.94 M/mm3 (4.1-5.6); White Blood Count 11.8 K/mm3 (4.0-10.5)
[2020-12-19 05:49] LABS: ALBUMIN 3.3 g/dL (3.5-5.0); ALKALINE PHOSPHATASE 59 U/L (38-126); ANION GAP 10.7 MEQ/L (5-15); BLOOD UREA NITROGEN 21 mg/dL (9-20); CHLORIDE 110 mmol/L (98-107); Calcium 8.1 mg/dL (8.4-10.2); Carbon Dioxide 20 mmol/L (22-30); Creatinine 1 1.15 mg/dL (0.66-1.25); EST GLOMERULAR FILTRATION RATE > 60.0 ML/MIN; Glucose 152 mg/dL (74-106); Potassium 3.9 mmol/L (3.5-5.1); SGOT/AST 19 U/L (17-59); SGPT/ALT 17 U/L (0-50); SODIUM 137 mmol/L (137-145); Total Protein 5.5 g/dL (6.3-8.2)
[2020-12-19] MEDS: solu-MEDROL 125 MG IV SCH (06:21)
[2020-12-19] MEDS: PROVENTIL 2.5 MG/3 ML NEB IH SCH ×4 (07:33→19:36)
[2020-12-19] MEDS: Multaq 400 MG PO SCH ×2 (08:20→17:41)
--- NOTE | 2020-12-19 08:53 | PCM.NOTE ---
Date and Time: 12/19/2049 Subjective Assessment: Pt is feeling better today. Margo po well. No other complaints. Breathing is much better. - Review of Systems Constitutional: No Fever Respiratory: Cough, Short Of Breath Objective Exam General Appearance: no apparent distress, alert Neurologic Exam: oriented x 3, cooperative, normal mood/affect Skin Exam: normal color, warm, dry, No rash Ears, Nose, Throat Exam: moist mucous membranes Neck Exam: normal inspection Respiratory Exam: diminished breath sounds (good air exchange), prolonged expirations, No crackles/rales, No rhonchi, No wheezing Cardiovascular Exam: regular rate/rhythm, normal heart sounds, No murmur Extremity Exam: No pedal edema, No swelling Back Exam: normal inspection, No rash OBJECTIVE DATA Vital Signs: Vital Signs - 24 hr Temp Pulse Resp BP Pulse Ox 12/19/20 07:36 68 18 91 L 12/19/20 04:20 98.2 F 84 24 104/52 93 L 12/19/20 00:18 98.1 F 80 20 103/49 92 L 12/18/20 20:00 97.7 F 83 19 111/53 92 L 12/18/20 19:49 82 16 93 L 12/18/20 16:00 98.5 F 98 H 16 118/55 93 L 12/18/20 14:59 88 18 96 12/18/20 12:40 92 H 12/18/20 12:00 98.3 F 89 19 130/60 92 L 12/18/20 11:04 84 18 91 L Pain Assessment - Last Documented Pain Intensity 0 Intake and Output: Intake & Output 12/16/20 12/17/20 12/18/20 12/19/20 11:59 11:59 11:59 11:59 Intake Total 380 2638 Output Total 300 600 Balance 80 2038 Weight 90 kg Lab Results: Lab Results-Last 24 Hours 12/18/20 12/18/20 12/19/20 Range/Units 08:45 12:00 05:12 WBC 11.8 H (4.0-10.5) K/mm3 RBC 3.94 L (4.1-5.6) M/mm3 Hgb 12.6 (12.5-18.0) gm/dl Hct 37.8 L (42-50) % MCV 95.9 (78-100) fl MCH 32.0 (26-32) pg MCHC 33.3 (32-36) g/dl RDW 15.0 H (11.5-14.0) % Plt Count 139 L (150-450) K/mm3 MPV 9.6 (7.5-11.0) fl Sodium (137-145) mmol/L Potassium (3.5-5.1) mmol/L Chloride (98-107) mmol/L Carbon Dioxide (22-30) mmol/L Anion Gap (5-15) MEQ/L BUN (9-20) mg/dL Creatinine (0.66-1.25) mg/dL Estimated GFR ML/MIN Glucose (74-106) mg/dL Calcium (8.4-10.2) mg/dL Total Bilirubin (0.2-1.3) mg/dL AST (17-59) U/L ALT (0-50) U/L Alkaline Phosphatase (38-126) U/L Troponin I < 0.012 < 0.012 (0.000-0.034) ng/mL Serum Total Protein (6.3-8.2) g/dL Albumin (3.5-5.0) g/dL 12/19/20 Range/Units 05:12 WBC (4.0-10.5) K/mm3 RBC (4.1-5.6) M/mm3 Hgb (12.5-18.0) gm/dl Hct (42-50) % MCV (78-100) fl MCH (26-32) pg MCHC (32-36) g/dl RDW (11.5-14.0) % Plt Count (150-450) K/mm3 MPV (7.5-11.0) fl Sodium 137 (137-145) mmol/L Potassium 3.9 (3.5-5.1) mmol/L Chloride 110 H (98-107) mmol/L Carbon Dioxide 20 L (22-30) mmol/L Anion Gap 10.7 (5-15) MEQ/L BUN 21 H (9-20) mg/dL Creatinine 1.15 (0.66-1.25) mg/dL Estimated GFR > 60.0 ML/MIN Glucose 152 H (74-106) mg/dL Calcium 8.1 L (8.4-10.2) mg/dL Total Bilirubin 0.80 (0.2-1.3) mg/dL AST 19 (17-59) U/L ALT 17 (0-50) U/L Alkaline Phosphatase 59 (38-126) U/L Troponin I (0.000-0.034) ng/mL Serum Total Protein 5.5 L (6.3-8.2) g/dL Albumin 3.3 L (3.5-5.0) g/dL Radiology Exams: Radiology Procedures Category Date Time Status CHEST WITH CONTRAST [CT] Stat Exams 12/18/20 00:46 Completed Assessment/Plan (1) COPD exacerbation Current Visit: Yes Status: Acute Assessment & Plan: Doing much better. Will decrease steroids today and likely home tomorrow. Code(s): J44.1 - CHRONIC OBSTRUCTIVE PULMONARY DISEASE W (ACUTE) EXACERBATION (2) Coronary artery disease Current Visit: No Status: Chronic Qualifiers: Code(s): I25.10 - ATHSCL HEART DISEASE OF [place] CORONARY ARTERY W/O ANG PCTRS (3) Hypertension Current Visit: No Status: Chronic Qualifiers: Hypertension type: essential hypertension Code(s): I10 - ESSENTIAL (PRIMARY) HYPERTENSION (4) Total bilirubin, elevated Current Visit: Yes Status: Resolved Code(s): R17 - UNSPECIFIED JAUNDICE (5) Thrombocytopenia Current Visit: Yes Status: Chronic
[2020-12-19] MEDS ORDERED: ATENOLOL 12.5 MG PO SCH (10:00)
[2020-12-19] MEDS ORDERED: NON-FORMULARY ITEM (Fluticasone/Vilanterol [Breo Ellipta 200-25 Mcg Inh] 1 PUFF) IH SCH (10:00)
[2020-12-19] MEDS: NEURONTIN 300 MG PO SCH ×3 (10:51→22:51)
[2020-12-19] MEDS: TENORMIN 50 MG PO SCH (10:51)
[2020-12-19] MEDS: Protonix 40MG Tablet PO SCH (10:51)
[2020-12-19] MEDS: Vibramycin 100 MG PO SCH ×2 (10:51→22:51)
[2020-12-19] MEDS: ZYLOPRIM 100 MG PO SCH (10:52)
[2020-12-19] MEDS: Flonase NASAL NS SCH (10:52)
[2020-12-19] MEDS: PLAVIX 75 MG Tablet PO SCH (10:53)
[2020-12-19] MEDS: SYNTHROID 75 MCG PO SCH (10:53)
[2020-12-19] MEDS: ECOTRIN 81 MG PO SCH (10:53)
[2020-12-19] MEDS: Advair Hfa 115/21 Common canister IH SCH ×2 (11:42→19:36)
[2020-12-19] MEDS: Sodium Chloride 0.9% 1000 ML 1,000 ML IV SCH (14:17)
[2020-12-19] MEDS: solu-MEDROL 40 MG IV SCH ×2 (14:18→22:52)
[2020-12-19] MEDS: Proscar 5 MG PO SCH (22:51)
[2020-12-19] MEDS: Zocor 10MG PO SCH (22:52)
[2020-12-20 04:38] VITALS: O2SAT 94
[2020-12-20] MEDS: solu-MEDROL 40 MG IV SCH (05:46)
[2020-12-20] MEDS: Sodium Chloride 0.9% 1000 ML 1,000 ML IV SCH (05:46)
[2020-12-20] MEDS: PROVENTIL 2.5 MG/3 ML NEB IH SCH (06:47)
[2020-12-20] MEDS: Advair Hfa 115/21 Common canister IH SCH (06:50)
[2020-12-20 07:41] VITALS: BP 129/57; PULSE 72
[2020-12-20] MEDS: Multaq 400 MG PO SCH (07:44)
--- NOTE | 2020-12-20 07:59 | PCM.DS ---
Discharge Summary Date of Admission: 12/18/20 04:26 Admitting Physician: KENAN BRAGG Primary Care Provider: KENAN BRAGG Allergies Allergies levofloxacin Allergy (Intermediate, Verified 12/18/20 05:13) [facility] Summary - Hospital Course Hospital Course: patient was admitted and cared for by Dr Bragg until discharge date, treated for copd exacerbation. he is doing much better, on 2L nasal cannula which he wears at home. cough and wheezing are better and he requests to go home today. states he feels back to his baseline. - Vitals & Intake/Output Vital Signs: Vital Signs Temperature 97.5 F 12/20/20 07:41 Pulse Rate 72 12/20/20 07:41 Respiratory Rate 18 12/20/20 07:41 Blood Pressure 129/57 12/20/20 07:41 O2 Sat by Pulse Oximetry 94 L 12/20/20 07:41 Intake & Output: Intake & Output 12/17/20 12/18/20 12/19/20 12/20/20 11:59 11:59 11:59 11:59 Intake Total 380 2998 1818 Output Total 181 180 6709 Balance 80 2098 493 Weight 90 kg - Lab Result Diagrams: 12/19/20 05:12 12/19/20 05:12 Micro Results-Entire Visit: Microbiology 12/18/20 00:07 Blood Culture - Preliminary Blood NO GROWTH TO DATE 12/18/20 00:01 Blood Culture - Preliminary Blood NO GROWTH TO DATE - Procedures and Test Procedures and Tests throughout Hospitalization: Therapy Orders & Screens 12/18/20 01:06 Respiratory Therapy Assessment DAILY Comment: 12/18/20 05:17 Oxygen Nasal Cannula 2 lpm Comment: Diagnosis: COPD exacerbation Discharge Exam General Appearance: no apparent distress, alert Neurologic Exam: alert, oriented x 3, cooperative, normal mood/affect, nml cereb ellar function, sensation nml, No motor deficits Respiratory Exam: prolonged expirations, wheezing (minimal wheeze at end expiration) Cardiovascular Exam: regular rate/rhythm, normal heart sounds Gastrointestinal/Abdomen Exam: soft, No tenderness, No mass Final Diagnosis/Problem List - Final Discharge Diagnosis/Problem (1) COPD exacerbation Current Visit: Yes Status: Acute Code(s): J44.1 - CHRONIC OBSTRUCTIVE PULMONARY DISEASE W (ACUTE) EXACERBATION (2) Thrombocytopenia Current Visit: Yes Status: Chronic - Discharge Disposition: Home, Self-Care Condition: Stable Prescriptions: New Albuterol/Ipratropium 3ml Neb* [DUONEB 0.5-3 MG/3 ml Neb] 3 ml IH Q6H PRN PRN #100 ampul.neb PRN Reason: Shortness Of Breath Continue Atenolol 12.5 mg PO DAILY Dronedarone Hydrochloride 400* [Multaq 400 MG] 400 mg PO BID Fluticasone/Vilanterol [Breo Ellipta 200-25 Mcg INH] 1 puff IH DAILY Finasteride 5 mg [Proscar 5 MG] 5 mg PO HS Albuterol Sulfate [Proair Respiclick] 2 puffs IH Q6H Cholecalciferol (Vitamin D3) [D3-2000] 2,000 unit PO HS Clopidogrel Bisulfate [Clopidogrel] 75 mg PO DAILY PANTOPRAZOLE 40 mg Tablet [Protonix 40MG Tablet] 40 mg PO DAILY Aspirin EC 81 mg [Ecotrin 81 mg] 1 tab PO DAILY Allopurinol 100 mg [Zyloprim 100 mg] 100 mg PO DAILY Atorvastatin Calcium [Lipitor 40Mg] 40 mg PO HS Levothyroxine Sodium 75 Mcg [Synthroid 75 Mcg] 75 mcg PO DAILY Fluticasone Propionate [Flonase NASAL] 1 spray NS DAILY Gabapentin 300 mg [Neurontin 300 mg] 300 mg PO TID Prednisone 20 mg [Deltasone 20 mg] 20 mg PO UD #18 tablet Doxycycline Monohydrate 100 mg PO BID #14 tablet Follow up with: KENAN BRAGG [Primary Care Provider] - 1 Week
== END 2020-12-20 09:53 | disposition home or self-care (01) ==
LOC: ED 23:29 → INTOOBSV 12-18 04:26 → MED SURG 12-18 04:26
PROVIDERS: ADMIT Family Medicine; ATTEND Family Medicine
DX: J44.1 Chronic obstructive pulmonary disease with (acute) exacerbation (principal); Z99.81 Dependence on supplemental oxygen; Z79.899 Other long term (current) drug therapy; R79.1 Abnormal coagulation profile; D69.6 Thrombocytopenia, unspecified; I10 Essential (primary) hypertension; E78.5 Hyperlipidemia, unspecified; E03.9 Hypothyroidism, unspecified; R07.9 Chest pain, unspecified; I25.10 Atherosclerotic heart disease of native coronary artery without angina pectoris; G47.30 Sleep apnea, unspecified; R17 Unspecified jaundice; Z20.828 Contact with and (suspected) exposure to other viral communicable diseases
CPT/HCPCS: 0241U; 36000; 36415; 71260; 80053; 81001; 83735; 83880; 84484; 85025; 85027; 85379; 87040; 93005; 93041; 93268; 94640; 94760; 96374; 99285; G0378; U0003; J2920; J2930; J7609; A9270-GY

== ENCOUNTER 2021-01-02 09:33 | Observation (INO) | payer MEDICARE ==
[2021-01-02 10:21] LABS: Hematocrit 41.9 % (42-50); Hemoglobin 13.7 gm/dl (12.5-18.0); Mean Cell Volume 98.6 fl (78-100); Mean Corpuscular Hemoglobin 32.2 pg (26-32); Mean Corpuscular Hgb Concent. 32.7 g/dl (32-36); Mean Platelet Volume 9.2 fl (7.5-11.0); Platelet Count 129 K/mm3 (150-450); Red Blood Count 4.25 M/mm3 (4.1-5.6); Red Cell Distribution Width 15.8 % (11.5-14.0)
[2021-01-02 10:23] LABS: INR 0.97 (0.8-3.0)
--- NOTE | 2021-01-02 10:24 | ERPHSYRPT ---
- History of Present Illness Time Seen by Provider: 01/02/21 09:45 Source: patient Exam Limitations: no limitations Patient Subjective Stated Complaint: Pt states that he was in the hospital a couple of weeks ago and he continues to cough and the pain is a 10/10 when he is coughing and when he is not Triage Nursing Assessment: Pt was brought to the ER by his sister, hypertensive, pt in extreme pain in his left side ribs with purple bruising covering the lateral side of the abdomen, pulses normal, skin c/d, lungs clear Physician History: This is a 70-year-old white male patient of Dr. Bragg who has had progressively worsening shortness of breath and cough over the last 2 weeks. Patient was admitted into the hospital here at [facility] on 12/18/2020 because of similar complaints. Patient was discharged to home a few days later. However, his shortness of breath, cough and now pain in the left lateral rib region with associated bruising has brought him back into the emergency department for evaluation. Patient has a history of coronary disease, hypertension, hypothyroid, COPD, gastroesophageal reflux disease. He is a non-smoker. He does use home oxygen therapy on a as needed basis via 2 L nasal cannula. Patient is on Plavix. He recently was given steroid boluses for his COPD exacerbation. Patient does have a history of cardiac stent placement. Timing/Duration: week(s) (2) Severity of Dyspnea-Max: mild Severity of Dyspnea-Current: mild Possible Cause: occasional episodes Associated Symptoms: cough, painful breathing (Left lateral ribs) Allergies/Adverse Reactions: levofloxacin Allergy (Intermediate, Verified 01/02/21 09:52) [facility]: Atenolol 12.5 mg PO DAILY 08/02/16 [History] Dronedarone Hydrochloride 400* [Multaq 400 MG] 400 mg PO BID 09/29/16 [History] Fluticasone/Vilanterol [Breo Ellipta 200-25 Mcg INH] 1 puff IH DAILY 03/10/17 [History] Albuterol Sulfate [Proair Respiclick] 2 puffs IH Q6H 11/25/18 [History] Cholecalciferol (Vitamin D3) [D3-2000] 2,000 unit PO HS 11/25/18 [History] Finasteride 5 mg [Proscar 5 MG] 5 mg PO HS 11/25/18 [History] Clopidogrel Bisulfate [Clopidogrel] 75 mg PO DAILY 01/03/19 [History] Aspirin EC 81 mg [Ecotrin 81 mg] 1 tab PO DAILY 04/15/19 [History] PANTOPRAZOLE 40 mg Tablet [Protonix 40MG Tablet] 40 mg PO DAILY 04/15/19 [History] Allopurinol 100 mg [Zyloprim 100 mg] 100 mg PO DAILY 12/18/20 [History] Atorvastatin Calcium [Lipitor 40Mg] 40 mg PO HS 12/18/20 [History] Fluticasone Propionate [Flonase NASAL] 1 spray NS DAILY 12/18/20 [History] Gabapentin 300 mg [Neurontin 300 mg] 300 mg PO TID 12/18/20 [History] Levothyroxine Sodium 75 Mcg [Synthroid 75 Mcg] 75 mcg PO DAILY 12/18/20 [History] Hx Tetanus, Diphtheria Vaccination/Date Given: Yes Hx Influenza Vaccination/Date Given: Yes Hx Pneumococcal Vaccination/Date Given: Yes Travel Risk - International Travel Have you traveled outside of the country in past 3 weeks: No - Coronavirus Screening Are you exhibiting any of the following symptoms?: No - Vaccine Status Have you recieved a Covid-19 vaccination: No - Past Medical History Pertinent Past Medical History: Yes Neurological History: No Pertinent History ENT History: No Pertinent History Cardiac History: High Cholesterol, Hypertension Respiratory History: COPD, Pneumonia Endocrine Medical History: Hypothyroidism Musculoskeletal History: Osteoarthritis GI Medical History: No Pertinent History History: No Pertinent History Psycho-Social History: No Pertinent History Male Reproductive Disorders: No Pertinent History Other Medical History: PMHX WITH RECENT HOSPITALIZATION NOTED ABOVE. PATIENT REPORTS CHRONICALLY HAVING PAIN IN HIS FEET WITH OCCASIONAL CRAMPING. WAS SEEN BY SUB MASTER RECENTLY FOR WOUND RIGHT LATERAL ANKLE. WAS EVALUATION FOR "POOR CIRCULATON" AT [facility] AND PER PATIENT WAS FINE. WOUND HEALED ABOUT 2 MONTHS AGO. SX HX: CHOLECYSTECTOMY, CARDIAC STENTS X 3 - Past Surgical History Past Surgical History: Yes Neuro Surgical History: No Pertinent History Cardiac: Cardiac Catheterization, Cardiac Stent Respiratory: No Pertinent History Gastrointestinal: Cholecystectomy Genitourinary: No Pertinent History Musculoskeletal: Other Male Surgical History: Other Other Surgical History: Mediastinoscopy and " urologic procedure." - Social History Smoking Status: Never smoker Exposure to second hand smoke: No Alcohol Use: None Drug Use: none Patient Lives Alone: No Significant Family History: no pertinent family hx - Nursing Vital Signs Nursing Vital Signs: Initial Vital Signs Temperature 98.0 F 01/02/21 09:35 Pulse Rate 62 01/02/21 09:35 Respiratory Rate 16 01/02/21 09:35 Blood Pressure 168/94 01/02/21 09:35 O2 Sat by Pulse Oximetry 96 01/02/21 09:35 Pain Scale Pain Intensity 5 - Physical Exam General Appearance: mild distress, alert, anxiety Eye Exam: PERRL/EOMI, eyes nml inspection Ears, Nose, Throat Exam: hearing grossly normal, normal ENT inspection, normal pharynx Neck Exam: normal inspection, non-tender, supple, full range of motion Respiratory Exam: normal breath sounds, lungs clear, airway intact, other (Left lateral ribs with bruising present. There is mild tenderness to palpation. There is no crepitance present.), No chest tenderness, No respiratory distress Cardiovascular/Chest Exam: normal heart sounds, regular rate/rhythm, normal peripheral pulses Abdominal/Gastrointestinal Exam: soft, normal bowel sounds, No tenderness, No guarding, No rebound Rectal Exam: not done Extremity Exam: non-tender Neurologic Exam: alert, oriented x 3, cooperative, review appraiser II-XII nml as tested, n ormal mood/affect, nml cerebellar function, nml station & gait, sensation nml Skin Exam: ecchymosis Lymphatic Exam: No adenopathy SpO2 Interpretation: normal SpO2: 96 O2 Delivery: Room Air Ordered Tests: Active Orders 24 hr Category Date Time Status Dairy Lab Technician STAT Care 01/02/21 10:15 Active EKG-ER Only STAT Care 01/02/21 10:13 Active IV Insertion STAT Care 01/02/21 10:13 Active Pulse Oximetry (ED) STAT Care 01/02/21 10:13 Active CHEST 1 VIEW (PORTABLE) Stat Exams 01/02/21 10:26 Completed CHEST WITH CONTRAST [CT] Stat Exams 01/02/21 11:07 Completed BLOOD CULTURE Stat Lab 01/02/21 10:40 Received CBC W DIFF Stat Lab 01/02/21 10:10 Completed CMP Stat Lab 01/02/21 10:10 Completed CULTURE,SPUTUM Stat Lab 01/02/21 11:39 Ordered D-DIMER QUANTITATIVE Stat Lab 01/02/21 10:10 Completed INFLUENZA A+B DEMARCUS Stat Lab 01/02/21 10:40 Completed Lactic Acid Stat Lab 01/02/21 10:13 Completed MAGNESIUM Stat Lab 01/02/21 10:10 Completed Manual Differential NC Stat Lab 01/02/21 10:10 Completed NT PRO BNP Stat Lab 01/02/21 10:10 Completed PROTIME WITH INR Stat Lab 01/02/21 10:10 Completed PTT Stat Lab 01/02/21 10:10 Completed TROPONIN Q3H Lab 01/02/21 10:10 Completed TROPONIN Q3H Lab 01/02/21 13:15 Ordered TROPONIN Q3H Lab 01/02/21 16:15 Ordered TROPONIN Q3H Lab 01/02/21 19:15 Ordered TROPONIN Q3H Lab 01/02/21 22:15 Ordered Transfer Order Routine Transfer 01/02/21 Ordered Lab/Rad Data: Laboratory Result Diagrams 01/02/21 10:10 01/02/21 10:10 Laboratory Results 01/02/21 01/02/21 01/02/21 Range/Units 10:40 10:13 10:10 WBC (4.0-10.5) K/mm3 RBC (4.1-5.6) M/mm3 Hgb (12.5-18.0) gm/dl Hct (42-50) % MCV (78-100) fl MCH (26-32) pg MCHC (32-36) g/dl RDW (11.5-14.0) % Plt Count (150-450) K/mm3 MPV (7.5-11.0) fl PT (8.83-12.87) SECONDS INR (0.8-3.0) APTT (24.1-36.1) SECONDS D-Dimer (215-500) ng/mL Sodium (137-145) mmol/L Potassium (3.5-5.1) mmol/L Chloride (98-107) mmol/L Carbon Dioxide (22-30) mmol/L Anion Gap (5-15) MEQ/L BUN (9-20) mg/dL Creatinine (0.66-1.25) mg/dL Estimated GFR ML/MIN Glucose (74-106) mg/dL Lactic Acid 1.7 (0.4-2.0) Calcium (8.4-10.2) mg/dL Magnesium (1.6-2.3) mg/dL Total Bilirubin (0.2-1.3) mg/dL AST (17-59) U/L ALT (0-50) U/L Alkaline Phosphatase (38-126) U/L Troponin I < 0.012 (0.000-0.034) ng/mL NT-Pro-B Natriuret Pep (0-900) pg/mL Serum Total Protein (6.3-8.2) g/dL Albumin (3.5-5.0) g/dL Influenza Type A Ag NEGATIVE (NEGATIVE) Influenza Type B Ag NEGATIVE (NEGATIVE) 01/02/21 01/02/21 01/02/21 Range/Units 10:10 10:10 10:10 WBC 9.0 (4.0-10.5) K/mm3 RBC 4.25 (4.1-5.6) M/mm3 Hgb 13.7 (12.5-18.0) gm/dl Hct 41.9 L (42-50) % MCV 98.6 (78-100) fl MCH 32.2 H (26-32) pg MCHC 32.7 (32-36) g/dl RDW 15.8 H (11.5-14.0) % Plt Count 129 L (150-450) K/mm3 MPV 9.2 (7.5-11.0) fl PT 11.0 (8.83-12.87) SECONDS INR 0.97 (0.8-3.0) APTT 22.3 L (24.1-36.1) SECONDS D-Dimer 1861 H* (215-500) ng/mL Sodium 136 L (137-145) mmol/L Potassium 3.7 (3.5-5.1) mmol/L Chloride 104 (98-107) mmol/L Carbon Dioxide 25 (22-30) mmol/L Anion Gap 10.4 (5-15) MEQ/L BUN 19 (9-20) mg/dL Creatinine 1.09 (0.66-1.25) mg/dL Estimated GFR > 60.0 ML/MIN Glucose 88 (74-106) mg/dL Lactic Acid (0.4-2.0) Calcium 8.2 L (8.4-10.2) mg/dL Magnesium 2.2 (1.6-2.3) mg/dL Total Bilirubin 2.10 H (0.2-1.3) mg/dL AST 23 (17-59) U/L ALT 27 (0-50) U/L Alkaline Phosphatase 64 (38-126) U/L Troponin I (0.000-0.034) ng/mL NT-Pro-B Natriuret Pep 572 (0-900) pg/mL Serum Total Protein 5.3 L (6.3-8.2) g/dL Albumin 3.1 L (3.5-5.0) g/dL Influenza Type A Ag (NEGATIVE) Influenza Type B Ag (NEGATIVE) - Progress Progress: re-examined, unchanged Air Movement: good Progress Note: 01/02/21 10:51 Chest x-ray shows no new/acute cardiopulmonary issues 01/02/21 12:[address] with contrast shows a new tiny nonoccluding right upper lobe pulmonary embolus present. Medical decision making: This patient has a new, tiny nonoccluding right upper lobe pulmonary embolus. Patient is symptomatic. This pulmonary embolus is present despite the use of Plavix. I spoke with Dr. Zavaleta who is covering for this patient's primary care doctor, Dr. Bragg. I reviewed the patient history, condition, physical findings, EKG results, chest x-ray and CAT scan of the chest findings as well as results of his laboratory blood work. We both agree that the patient will be placed in observation. We will place him on Lovenox every 12 hours. We will provide the patient with oxygen supplementation. We will repeat basic labs in the morning. Blood Culture(s) Obtained: Yes Antibiotics given: No Discussed with : Levi Will see patient in: hospital (observation) Counseled pt/family regarding: lab results, diagnosis, need for follow-up, rad results - Departure Departure Disposition: Observation Clinical Impression: Shortness of breath, Cough, Pulmonary embolus, right Condition: Stable Critical Care Time: Yes Critical Care Time(excluding separately billable procedures): Critical 30-74 mins Referrals: KENAN BRAGG [Primary Care Provider] -
[2021-01-02 10:26] LABS: PTT 22.3 SECONDS (24.1-36.1)
--- NOTE | 2021-01-02 10:34 | XRAY ---
Indication: Cough and short of breath. Comparison: December 27, 2020. Portable apical lordotic chest less inflated accentuating cardiopulmonary structures. Lungs remain clear. No new/acute cardiopulmonary abnormalities.
[2021-01-02 10:37] LABS: ALBUMIN 3.1 g/dL (3.5-5.0); ALKALINE PHOSPHATASE 64 U/L (38-126); ANION GAP 10.4 MEQ/L (5-15); BLOOD UREA NITROGEN 19 mg/dL (9-20); CHLORIDE 104 mmol/L (98-107); Calcium 8.2 mg/dL (8.4-10.2); Carbon Dioxide 25 mmol/L (22-30); Creatinine 1 1.09 mg/dL (0.66-1.25); EST GLOMERULAR FILTRATION RATE > 60.0 ML/MIN; Glucose 88 mg/dL (74-106); MAGNESIUM 2.2 mg/dL (1.6-2.3); NT PRO BNP 572 pg/mL (0-900); Potassium 3.7 mmol/L (3.5-5.1); SGOT/AST 23 U/L (17-59); SGPT/ALT 27 U/L (0-50); SODIUM 136 mmol/L (137-145); Total Protein 5.3 g/dL (6.3-8.2)
[2021-01-02 11:27] LABS: INFLUENZA A NEGATIVE (NEGATIVE); INFLUENZA B NEGATIVE (NEGATIVE)
--- NOTE | 2021-01-02 12:27 | XRAY ---
Indication: Cough and short of breath. COPD. Elevated d-dimer. Multiple contiguous axial images obtained through the chest using 100 cc Isovue 370 contrast and PE protocol. Comparison: December 18, 2020. There is adequate opacification of the pulmonary arteries. New tiny nonoccluding pulmonary emboli seen in the apical and lesser degree posterior segmental branches of the right upper lobe. Heart remains enlarged. Aorta minimally arteriosclerotic without aneurysm/dissection. No pathologic mediastinal/hilar lymphadenopathy. Lungs again demonstrates bibasilar dependent atelectasis, lingula fibrosis/scarring, and small left lower lobe calcified granuloma. No infiltrate or effusion. Bony thorax intact again with degenerative changes throughout the spine. Limited upper abdomen again demonstrates fatty liver, cholecystectomy, 13.4 cm splenomegaly, and splenic calcified granulomas. Impression: 1. New tiny nonoccluding right upper lobe pulmonary emboli. 2. Again incidental cardiomegaly, bilateral atelectasis/scarring, fatty liver, splenic megaly, and old granulomatous disease.
[2021-01-02] MEDS ORDERED: ENOXAPARIN SODIUM SQ STA (12:52)
[2021-01-02] MEDS ORDERED: ENOXAPARIN SODIUM SQ ONE (13:42)
[2021-01-02 14:59] LABS: ANISOCYTOSIS 1+; ATYPICAL LYMPHS 1 %; BAND 1 % (0.0-2.0); Eosinophil 1 % (0.00-3.0); Lymphocytes 22 % (24-44); Monocyte 4 % (0.0-12.0); Neutrophils 71 % (36.-66.); Platelet Estimate NORMAL (NORMAL); Total Cells Counted 100; Toxic Granulation 1+
[2021-01-02] MEDS ORDERED: Zofran 4 MG/2 ML VIAL IV PRN (15:04)
[2021-01-02] MEDS: Sodium Chloride 0.9% 1000 ML 1,000 ML IV SCH (15:17)
[2021-01-02] MEDS: TYLENOL 325 MG PO PRN ×2 (15:26→21:27)
[2021-01-02] MEDS: TENORMIN 50 MG PO SCH (17:39)
[2021-01-02] MEDS: NEURONTIN 300 MG PO SCH ×2 (17:39→21:27)
[2021-01-02] MEDS: Protonix 40MG Tablet PO SCH (17:40)
[2021-01-02] MEDS: DUONEB 0.5-3 MG/3 ml Neb IH SCH (19:20)
[2021-01-02] MEDS: Advair Hfa 115/21 Common canister IH SCH (19:23)
[2021-01-02] MEDS: LIPITOR 40MG PO SCH (21:26)
[2021-01-02] MEDS: Multaq 400 MG PO SCH (21:27)
[2021-01-02] MEDS: Proscar 5 MG PO SCH (21:27)
[2021-01-02] MEDS: VITAMIN D PO SCH (21:27)
[2021-01-02] MEDS ORDERED: ENOXAPARIN SODIUM SQ SCH (22:00)
[2021-01-02] MEDS ORDERED: NON-FORMULARY ITEM (Cholecalciferol (Vitamin D3) [D3-2000] 2,000 UNIT) PO SCH (22:00)
[2021-01-03 05:40] LABS: Hematocrit 40.4 % (42-50); Hemoglobin 13.1 gm/dl (12.5-18.0); Mean Cell Volume 99.3 fl (78-100); Mean Corpuscular Hemoglobin 32.2 pg (26-32); Mean Corpuscular Hgb Concent. 32.4 g/dl (32-36); Mean Platelet Volume 9.3 fl (7.5-11.0); Platelet Count 122 K/mm3 (150-450); Red Blood Count 4.07 M/mm3 (4.1-5.6); Red Cell Distribution Width 15.6 % (11.5-14.0); White Blood Count 7.3 K/mm3 (4.0-10.5)
[2021-01-03 05:47] LABS: ALBUMIN 2.9 g/dL (3.5-5.0); ALKALINE PHOSPHATASE 63 U/L (38-126); BLOOD UREA NITROGEN 17 mg/dL (9-20); CHLORIDE 101 mmol/L (98-107); Calcium 7.9 mg/dL (8.4-10.2); Carbon Dioxide 28 mmol/L (22-30); Creatinine 1 1.05 mg/dL (0.66-1.25); EST GLOMERULAR FILTRATION RATE > 60.0 ML/MIN; Glucose 90 mg/dL (74-106); SGOT/AST 19 U/L (17-59); SGPT/ALT 24 U/L (0-50); SODIUM 132 mmol/L (137-145); Total Protein 4.9 g/dL (6.3-8.2)
[2021-01-03] MEDS ORDERED: ENOXAPARIN SODIUM SQ SCH (06:00)
[2021-01-03 08:00] LABS: ANISOCYTOSIS 1+; Eosinophil 4 % (0.00-3.0); Lymphocytes 12 % (24-44); Monocyte 6 % (0.0-12.0); Neutrophils 78 % (36.-66.); Platelet Estimate NORMAL (NORMAL); Total Cells Counted 100
[2021-01-03] MEDS: DUONEB 0.5-3 MG/3 ml Neb IH SCH ×3 (09:01→19:43)
[2021-01-03] MEDS: Advair Hfa 115/21 Common canister IH SCH ×2 (09:01→19:45)
[2021-01-03] MEDS: Multaq 400 MG PO SCH ×2 (09:46→21:20)
[2021-01-03] MEDS: TENORMIN 50 MG PO SCH (09:46)
[2021-01-03] MEDS: Protonix 40MG Tablet PO SCH (09:46)
[2021-01-03] MEDS: SYNTHROID 75 MCG PO SCH (09:46)
[2021-01-03] MEDS: ECOTRIN 81 MG PO SCH (09:46)
[2021-01-03] MEDS: NEURONTIN 300 MG PO SCH ×3 (09:46→21:20)
[2021-01-03] MEDS: ZYLOPRIM 100 MG PO SCH (09:48)
[2021-01-03] MEDS: Flonase NASAL NS SCH (09:48)
[2021-01-03] MEDS ORDERED: ATENOLOL 12.5 MG PO SCH (10:00)
[2021-01-03] MEDS: Sodium Chloride 0.9% 1000 ML 1,000 ML IV SCH (12:05)
--- NOTE | 2021-01-03 12:52 | PCM.HP ---
History of Present Illness - Chief Complaint Chief Complaint: PE. SOB History of Present Illness: is a 71 year old male. Medications & Allergies Home Medications: Home Medication List Atenolol 12.5 mg PO DAILY 08/02/16 [History Confirmed 01/02/21] Dronedarone Hydrochloride 400* [Multaq 400 MG] 400 mg PO BID 09/29/16 [History Confirmed 01/02/21] Fluticasone/Vilanterol [Breo Ellipta 200-25 Mcg INH] 1 puff IH DAILY 03/10/17 [History Confirmed 01/02/21] Albuterol Sulfate [Proair Respiclick] 2 puffs IH Q6H 11/25/18 [History Confirmed 01/02/21] Cholecalciferol (Vitamin D3) [D3-2000] 2,000 unit PO HS 11/25/18 [History Confirmed 01/02/21] Finasteride 5 mg [Proscar 5 MG] 5 mg PO HS 11/25/18 [History Confirmed 01/02/21] Clopidogrel Bisulfate [Clopidogrel] 75 mg PO DAILY 01/03/19 [History Confirmed 01/02/21] Aspirin EC 81 mg [Ecotrin 81 mg] 1 tab PO DAILY 04/15/19 [History Confirmed 01/02/21] PANTOPRAZOLE 40 mg Tablet [Protonix 40MG Tablet] 40 mg PO DAILY 04/15/19 [History Confirmed 01/02/21] Allopurinol 100 mg [Zyloprim 100 mg] 100 mg PO DAILY 12/18/20 [History Confirmed 01/02/21] Atorvastatin Calcium [Lipitor 40Mg] 40 mg PO HS 12/18/20 [History Confirmed 01/02/21] Fluticasone Propionate [Flonase NASAL] 1 spray NS DAILY 12/18/20 [History Confirmed 01/02/21] Gabapentin 300 mg [Neurontin 300 mg] 300 mg PO TID 12/18/20 [History Confirmed 01/02/21] Levothyroxine Sodium 75 Mcg [Synthroid 75 Mcg] 75 mcg PO DAILY 12/18/20 [History Confirmed 01/02/21] Albuterol/Ipratropium 3ml Neb* [DUONEB 0.5-3 MG/3 ml Neb] 1 neb IH Q6H PRN PRN 01/02/21 [History Confirmed 01/02/21] Allergies/Adverse Reactions: Allergies Allergy/AdvReac Type Severity Reaction Status Date / Time levofloxacin Allergy Intermediate Hives Verified 01/02/21 09:52 - Past Medical History Past Medical History: Yes Neurological History: No Pertinent History ENT History: No Pertinent History Cardiac History: High Cholesterol, Hypertension Respiratory History: COPD, Lung Cancer, Pneumonia Endocrine Medical History: Hypothyroidism Musculoskelatal History: Osteoarthritis GI Medical History: No Pertinent History History: No Pertinent History Pyscho-Social History: No Pertinent History Male Reproductive Disorders: No Pertinent History Comment: PMHX WITH RECENT HOSPITALIZATION NOTED ABOVE. PATIENT REPORTS CHRONICALLY HAVING PAIN IN HIS FEET WITH OCCASIONAL CRAMPING. WAS SEEN BY SUPERVISOR BRINE RECENTLY FOR WOUND RIGHT LATERAL ANKLE. WAS EVALUATION FOR "POOR CIRCULATON" AT [facility] AND PER PATIENT WAS FINE. WOUND HEALED ABOUT 2 MONTHS AGO. SX HX: CHOLECYSTECTOMY, CARDIAC STENTS X 3 - Past Surgical History Past Surgical History: Yes Neuro Surgical History: No Pertinent History Cardiac History: Cardiac Catheterization, Cardiac Stent Respiratory Surgery: No Pertinent History GI Surgical History: Cholecystectomy Genitourinary Surgical Hx: No Pertinent History Musculskeletal Surgical Hx: Other Male Surgical History: Other Other Surgical History: Mediastinoscopy and " urologic procedure." - Social History Smoking Status: Never smoker Exposure to second hand smoke: No Alcohol: None Drug Use: none Significant Family History: no pertinent family hx - Physical Exam Vital Signs: Vital Signs - 24 hr Temp Pulse Resp BP BP BP Pulse Ox 01/03/21 11:15 98.2 F 72 20 127/63 90 L 01/03/21 09:46 107 H 137/65 01/03/21 09:04 73 16 97 01/03/21 07:00 98.9 F 62 18 137/65 97 01/03/21 04:00 98.4 F 90 16 137/66 92 L 01/03/21 00:16 98.7 F 67 18 117/61 95 01/02/21 20:57 57 L 18 95 01/02/21 19:40 98.4 F 68 20 131/64 97 01/02/21 16:36 107 H 22 94 L 01/02/21 15:30 96.5 F 63 18 153/72 95 01/02/21 15:11 96.5 F 63 18 153/72 95 01/02/21 14:00 60 16 95 01/02/21 13:00 60 16 170/80 96 01/02/21 12:52 96 Results - Labs Lab/Micro Results: Lab Results-Last 24 Hours 01/02/21 01/02/21 01/02/21 Range/Units 10:10 13:15 13:17 WBC (4.0-10.5) K/mm3 RBC (4.1-5.6) M/mm3 Hgb (12.5-18.0) gm/dl Hct (42-50) % MCV (78-100) fl MCH (26-32) pg MCHC (32-36) g/dl RDW (11.5-14.0) % Plt Count (150-450) K/mm3 MPV (7.5-11.0) fl Segmented Neutrophils 71 H (36.-66.) % Band Neutrophils 1 (0.0-2.0) % Lymphocytes (Manual) 22 L (24-44) % Monocytes (Manual) 4 (0.0-12.0) % Eosinophils (Manual) 1 (0.00-3.0) % Atypical Lymphocytes 1 % Toxic Granulation 1+ Platelet Estimate NORMAL (NORMAL) RBC Morphology ABNORMAL Anisocytosis 1+ Sodium (137-145) mmol/L Potassium (3.5-5.1) mmol/L Chloride (98-107) mmol/L Carbon Dioxide (22-30) mmol/L Anion Gap (5-15) MEQ/L BUN (9-20) mg/dL Creatinine (0.66-1.25) mg/dL Estimated GFR ML/MIN Glucose (74-106) mg/dL Calcium (8.4-10.2) mg/dL Total Bilirubin (0.2-1.3) mg/dL AST (17-59) U/L ALT (0-50) U/L Alkaline Phosphatase (38-126) U/L Troponin I < 0.012 (0.000-0.034) ng/mL Serum Total Protein (6.3-8.2) g/dL Albumin (3.5-5.0) g/dL SARS-CoV-2 (PCR) NEGATIVE (NEGATIVE) 01/02/21 01/02/21 01/02/21 Range/Units 15:59 19:10 21:30 WBC (4.0-10.5) K/mm3 RBC (4.1-5.6) M/mm3 Hgb (12.5-18.0) gm/dl Hct (42-50) % MCV (78-100) fl MCH (26-32) pg MCHC (32-36) g/dl RDW (11.5-14.0) % Plt Count (150-450) K/mm3 MPV (7.5-11.0) fl Segmented Neutrophils (36.-66.) % Band Neutrophils (0.0-2.0) % Lymphocytes (Manual) (24-44) % Monocytes (Manual) (0.0-12.0) % Eosinophils (Manual) (0.00-3.0) % Atypical Lymphocytes % Toxic Granulation Platelet Estimate (NORMAL) RBC Morphology Anisocytosis Sodium (137-145) mmol/L Potassium (3.5-5.1) mmol/L Chloride (98-107) mmol/L Carbon Dioxide (22-30) mmol/L Anion Gap (5-15) MEQ/L BUN (9-20) mg/dL Creatinine (0.66-1.25) mg/dL Estimated GFR ML/MIN Glucose (74-106) mg/dL Calcium (8.4-10.2) mg/dL Total Bilirubin (0.2-1.3) mg/dL AST (17-59) U/L ALT (0-50) U/L Alkaline Phosphatase (38-126) U/L Troponin I < 0.012 < 0.012 < 0.012 (0.000-0.034) ng/mL Serum Total Protein (6.3-8.2) g/dL Albumin (3.5-5.0) g/dL SARS-CoV-2 (PCR) (NEGATIVE) 01/03/21 01/03/21 Range/Units 05:10 05:10 WBC 7.3 (4.0-10.5) K/mm3 RBC 4.07 L (4.1-5.6) M/mm3 Hgb 13.1 (12.5-18.0) gm/dl Hct 40.4 L (42-50) % MCV 99.3 (78-100) fl MCH 32.2 H (26-32) pg MCHC 32.4 (32-36) g/dl RDW 15.6 H (11.5-14.0) % Plt Count 122 L (150-450) K/mm3 MPV 9.3 (7.5-11.0) fl Segmented Neutrophils 78 H (36.-66.) % Band Neutrophils (0.0-2.0) % Lymphocytes (Manual) 12 L (24-44) % Monocytes (Manual) 6 (0.0-12.0) % Eosinophils (Manual) 4 H (0.00-3.0) % Atypical Lymphocytes % Toxic Granulation Platelet Estimate NORMAL (NORMAL) RBC Morphology ABNORMAL Anisocytosis 1+ Sodium 132 L (137-145) mmol/L Potassium 4.0 (3.5-5.1) mmol/L Chloride 101 (98-107) mmol/L Carbon Dioxide 28 (22-30) mmol/L Anion Gap 8.0 (5-15) MEQ/L BUN 17 (9-20) mg/dL Creatinine 1.05 (0.66-1.25) mg/dL Estimated GFR > 60.0 ML/MIN Glucose 90 (74-106) mg/dL Calcium 7.9 L (8.4-10.2) mg/dL Total Bilirubin 3.10 H (0.2-1.3) mg/dL AST 19 (17-59) U/L ALT 24 (0-50) U/L Alkaline Phosphatase 63 (38-126) U/L Troponin I (0.000-0.034) ng/mL Serum Total Protein 4.9 L (6.3-8.2) g/dL Albumin 2.9 L (3.5-5.0) g/dL SARS-CoV-2 (PCR) (NEGATIVE) Microbiology 01/02/21 11:39 Gram Stain - Final Sputum - Expectorant Sputum Culture - Preliminary GRAM NEGATIVE ID AND SENSITIVITY PENDING - Radiology Impressions Radiology Exams & Impressions: Radiology Procedures Category Date Time Status CHEST 1 VIEW (PORTABLE) Stat Exams 01/02/21 10:26 Completed CHEST WITH CONTRAST [CT] Stat Exams 01/02/21 11:07 Completed ECHO W/2D AND DOPPLER [US] Routine Exams 01/03/21 11:32 Taken - Other Procedures and Tests Respiratory Therapy 01/02/21 15:04 Oxygen Nasal Cannula 2 lpm 06/09/21 16:15 Respiratory Therapy Assessment DAILY Assessment/Plan (1) Cough Current Visit: Yes Status: Acute Code(s): R05 - COUGH (2) Pulmonary embolus, right Current Visit: Yes Status: Acute Code(s): I26.99 - OTHER PULMONARY EMBOLISM WITHOUT ACUTE COR PULMONALE (3) SOB (shortness of breath) Current Visit: Yes Status: Acute Code(s): R06.02 - SHORTNESS OF BREATH (4) Acute exacerbation of chronic bronchitis Current Visit: No Status: Acute Code(s): J20.9 - ACUTE BRONCHITIS, UNSPECIFIED; J42 - UNSPECIFIED CHRONIC BRONCHITIS
[2021-01-03] MEDS ORDERED: Tessalon Perles 100 MG PO PRN (12:54)
[2021-01-03] MEDS: TYLENOL 325 MG PO PRN ×2 (13:07→21:20)
[2021-01-03] MEDS: ROCEPHIN 1 Gm-D5w 50 ml Bag** 1 G/50 ML IVPB IV SCH (13:45)
[2021-01-03] MEDS: Zithromax 500 MG/ 250 ML NaCl Premix 500 MG/250 ML IVPB IV SCH (15:04)
[2021-01-03] MEDS: ENOXAPARIN SODIUM SQ SCH (18:03)
[2021-01-03] MEDS: VITAMIN D PO SCH (21:20)
[2021-01-03] MEDS: Proscar 5 MG PO SCH (21:20)
[2021-01-03] MEDS: LIPITOR 40MG PO SCH (21:20)
[2021-01-04] MEDS: ENOXAPARIN SODIUM SQ SCH (06:05)
[2021-01-04] MEDS: Advair Hfa 115/21 Common canister IH SCH (07:31)
[2021-01-04] MEDS: DUONEB 0.5-3 MG/3 ml Neb IH SCH ×2 (07:32→13:09)
[2021-01-04 09:16] LABS: Hematocrit 43.5 % (42-50); Mean Cell Volume 100.5 fl (78-100); Mean Corpuscular Hemoglobin 32.3 pg (26-32); Mean Corpuscular Hgb Concent. 32.2 g/dl (32-36); Platelet Count 117 K/mm3 (150-450); Red Blood Count 4.33 M/mm3 (4.1-5.6); Red Cell Distribution Width 15.6 % (11.5-14.0); White Blood Count 7.5 K/mm3 (4.0-10.5)
[2021-01-04 09:54] LABS: INR 1.05 (0.8-3.0); PROTIME 12.4 SECONDS (9.4-12.5)
[2021-01-04] MEDS: Protonix 40MG Tablet PO SCH (09:56)
[2021-01-04] MEDS: ECOTRIN 81 MG PO SCH (09:56)
[2021-01-04] MEDS: NEURONTIN 300 MG PO SCH (09:56)
[2021-01-04 09:57] LABS: PTT 39.5 SECONDS (25.1-36.5)
[2021-01-04] MEDS: SYNTHROID 75 MCG PO SCH (09:57)
[2021-01-04] MEDS: Multaq 400 MG PO SCH (09:57)
[2021-01-04] MEDS: ROCEPHIN 1 Gm-D5w 50 ml Bag** 1 G/50 ML IVPB IV SCH (09:58)
[2021-01-04] MEDS: TENORMIN 50 MG PO SCH (09:58)
[2021-01-04 09:59] LABS: ALBUMIN 3.4 g/dL (3.5-5.0); ALKALINE PHOSPHATASE 73 U/L (38-126); ANION GAP 10.8 MEQ/L (5-15); BLOOD UREA NITROGEN 14 mg/dL (9-20); CHLORIDE 100 mmol/L (98-107); Calcium 8.1 mg/dL (8.4-10.2); Carbon Dioxide 27 mmol/L (22-30); Creatinine 1 1.13 mg/dL (0.66-1.25); EST GLOMERULAR FILTRATION RATE > 60.0 ML/MIN; Glucose 143 mg/dL (74-106); Potassium 4.2 mmol/L (3.5-5.1); SGOT/AST 20 U/L (17-59); SGPT/ALT 22 U/L (0-50); SODIUM 134 mmol/L (137-145); Total Protein 5.8 g/dL (6.3-8.2)
[2021-01-04] MEDS: ZYLOPRIM 100 MG PO SCH (09:59)
[2021-01-04] MEDS: Flonase NASAL NS SCH (09:59)
[2021-01-04 10:03] LABS: BAND 1 % (0.0-2.0); Eosinophil 1 % (0.00-3.0); Lymphocytes 13 % (24-44); Monocyte 7 % (0.0-12.0); Neutrophils 78 % (36.-66.); Total Cells Counted 100
[2021-01-04 10:05] LABS: Absolute Neutrophil Ct (ANC) 5.84 (1.4-6.9); Platelet Estimate DECREASED (NORMAL)
[2021-01-04] MEDS: Sodium Chloride 0.9% 1000 ML 1,000 ML IV SCH (10:45)
[2021-01-04] MEDS: Zithromax 500 MG/ 250 ML NaCl Premix 500 MG/250 ML IVPB IV SCH (10:48)
[2021-01-04 11:40] VITALS: BP 125/59
[2021-01-04 13:10] VITALS: PULSE 84; O2SAT 94
--- NOTE | 2021-01-04 13:10 | PCM.DS ---
Discharge Summary Date of Admission: 01/02/21 14:57 Admitting Physician: JEFFERSON ARSHAD MD Primary Care Provider: KENAN BRAGG Allergies Allergies levofloxacin Allergy (Intermediate, Verified 01/02/21 09:52) [facility] Summary - Vitals & Intake/Output Vital Signs: Vital Signs Temperature 97.3 F 01/04/21 11:39 Pulse Rate 88 01/04/21 11:39 Respiratory Rate 18 01/04/21 12:00 Blood Pressure 125/59 01/04/21 11:39 O2 Sat by Pulse Oximetry 97 01/04/21 11:39 Intake & Output: Intake & Output 01/02/21 01/03/21 01/04/21 01/05/21 11:59 11:59 11:59 11:59 Intake Total 3129 1860 Output Total 180 1375 Balance 2949 485 Weight 95.254 kg 91.5 kg - Lab Result Diagrams: 01/04/21 09:05 01/04/21 09:05 Lab Results-Last 24 Hrs: Lab Results-Last 24 Hours 01/04/21 01/04/21 01/04/21 Range/Units 09:05 09:05 09:05 WBC 7.5 (4.0-10.5) K/mm3 RBC 4.33 (4.1-5.6) M/mm3 Hgb 14.0 (12.5-18.0) gm/dl Hct 43.5 (42-50) % MCV 100.5 H (78-100) fl MCH 32.3 H (26-32) pg MCHC 32.2 (32-36) g/dl RDW 15.6 H (11.5-14.0) % Plt Count 117 L (150-450) K/mm3 MPV 9.0 (7.5-11.0) fl Absolute Granulocytes 5.84 (1.4-6.9) Segmented Neutrophils 78 H (36.-66.) % Band Neutrophils 1 (0.0-2.0) % Lymphocytes (Manual) 13 L (24-44) % Monocytes (Manual) 7 (0.0-12.0) % Eosinophils (Manual) 1 (0.00-3.0) % Platelet Estimate DECREASED (NORMAL) RBC Morphology ABNORMAL PT 12.4 (9.4-12.5) SECONDS INR 1.05 (0.8-3.0) APTT 39.5 H (25.1-36.5) SECONDS Sodium 134 L (137-145) mmol/L Potassium 4.2 (3.5-5.1) mmol/L Chloride 100 (98-107) mmol/L Carbon Dioxide 27 (22-30) mmol/L Anion Gap 10.8 (5-15) MEQ/L BUN 14 (9-20) mg/dL Creatinine 1.13 (0.66-1.25) mg/dL Estimated GFR > 60.0 ML/MIN Glucose 143 H (74-106) mg/dL Calcium 8.1 L (8.4-10.2) mg/dL Total Bilirubin 1.90 H (0.2-1.3) mg/dL AST 20 (17-59) U/L ALT 22 (0-50) U/L Alkaline Phosphatase 73 (38-126) U/L Serum Total Protein 5.8 L (6.3-8.2) g/dL Albumin 3.4 L (3.5-5.0) g/dL Micro Results-Entire Visit: Microbiology 01/02/21 10:40 Blood Culture - Preliminary Blood NO GROWTH TO DATE 01/02/21 10:40 Blood Culture - Preliminary Blood NO GROWTH TO DATE 01/02/21 11:39 Gram Stain - Final Sputum - Expectorant Sputum Culture - Preliminary Pseudomonas Aeruginosa - Radiology Exams Ordered Rad Exams-Entire Visit: Radiology Procedures Category Date Time Status ECHO W/2D AND DOPPLER [US] Routine Exams 01/03/21 11:32 Taken - Procedures and Test Procedures and Tests throughout Hospitalization: Therapy Orders & Screens 01/02/21 15:04 EKG REPEAT IN AM Comment: Oxygen Nasal Cannula 2 lpm Comment: Respiratory Therapy Consult ROUTINE Comment: Reason For Exam: 01/02/21 15:54 OT Screen per Nursing Assess ONCE Comment: Protocol Order Physician Instructions: Greater than 3 points order OT Admission Screening Reason For Exam: Triggered on Admission Diagnosis: PE. SOB Open Wound/Cellutlitis/Pressure Ulcers: No Acute Fx/ORIF/Change in wt bearing status: No Severe MUSCULOSKELETAL pain: Yes: r/t coughing. ADL Dysfunction: No Acute CVA w/Hemiparesis/Hemiplegia: No Decreased Functional Mobility/Strength: Yes: D/T sl SOB with walking. Sprain/Strain: No Total Points: 6 PT Screen per Nursing Assess ONCE Comment: Protocol Order Physician Instructions: Greater than 3 points order PT Admission Screenin Reason For Exam: Triggered on Admission Diagnosis: PE. SOB Open Wound/Cellutlitis/Pressure Ulcers: No Acute Fx/ORIF/Change in wt bearing status: No Severe MUSCULOSKELETAL pain: Yes: r/t coughing. ADL Dysfunction: No Acute CVA w/Hemiparesis/Hemiplegia: No Decreased Functional Mobility/Strength: Yes: D/T sl SOB with walking. Sprain/Strain: No Total Points: 6 01/02/21 16:15 Respiratory Therapy Assessment DAILY Comment: Diagnosis: PE. SOB 01/02/21 17:42 OT Screen per Nursing Assess ONCE Comment: Protocol Order Physician Instructions: Greater than 3 points order OT Admission Screening Reason For Exam: Triggered on Admission Diagnosis: PE. SOB Open Wound/Cellutlitis/Pressure Ulcers: No Acute Fx/ORIF/Change in wt bearing status: No Severe MUSCULOSKELETAL pain: Yes: r/t coughing. ADL Dysfunction: No Acute CVA w/Hemiparesis/Hemiplegia: No Decreased Functional Mobility/Strength: Yes: D/T sl SOB with walking. Sprain/Strain: No Total Points: 6 PT Screen per Nursing Assess ONCE Comment: Protocol Order Physician Instructions: Greater than 3 points order PT Admission Screenin Reason For Exam: Triggered on Admission Diagnosis: PE. SOB Open Wound/Cellutlitis/Pressure Ulcers: No Acute Fx/ORIF/Change in wt bearing status: No Severe MUSCULOSKELETAL pain: Yes: r/t coughing. ADL Dysfunction: No Acute CVA w/Hemiparesis/Hemiplegia: No Decreased Functional Mobility/Strength: Yes: D/T sl SOB with walking. Sprain/Strain: No Total Points: 6 Final Diagnosis/Problem List - Final Discharge Diagnosis/Problem (1) Pulmonary embolus, right Current Visit: Yes Status: Acute Assessment & Plan: Patient will be transitioned to eliquis as he developed a PE while on plavix. Will get hypercoag studies as this appears to be unprovoked and patient reports being compliant with aspirin and plavix. Patient has lower then normal platelet count as well. Code(s): I26.99 - OTHER PULMONARY EMBOLISM WITHOUT ACUTE COR PULMONALE (2) Cough Current Visit: Yes Status: Acute Assessment & Plan: Likely related to PE and underlying COPD exacerbation possibly HAP. Patient was started on tessalon perles. He will be discharged on IV antibiotics and will c ontinue tessalon perles and mucinex on discharge. Code(s): R05 - COUGH (3) SOB (shortness of breath) Current Visit: Yes Status: Acute Assessment & Plan: Chronic in nature. Patient does require as needed oxygen at home. He reports requiring this more frequently. He does have a PE and may have had increased need related to the PE. Will continue to oxygen requirements as outpatient. Patient may require some adjustments with his COPD medications. Code(s): R06.02 - SHORTNESS OF BREATH (4) Thrombocytopenia Current Visit: No Status: Chronic Assessment & Plan: Patient has had low platelets in the past. He was unaware of previous workup for possible causes. He reports he does bruise easy but that only started after the plavix. (5) Total bilirubin, elevated Current Visit: No Status: Resolved Assessment & Plan: Patient had normal bilirubin levels approx 5-7 years ago but has progressively started having elevated bilirubin. He denies recent alcohol hx but reports significant alcohol use in the past. Patient reports never being diagnosed with [place] in the past. Unsure how well patient's liver is functioning. He has fatty liver noted on imaging. Patient will need additional workup for elevated tbili Code(s): R17 - UNSPECIFIED JAUNDICE (6) Hospital acquired PNA Current Visit: Yes Status: Acute Assessment & Plan: Patient had sputum sample positive for pseudomonas. Will start on IV gentamicin. Patient will do outpatient infusion every 24 hours for 7 days. Code(s): J18.9 - PNEUMONIA, UNSPECIFIED ORGANISM; Y95 - NOSOCOMIAL CONDITION (7) Hypocalcemia Current Visit: No Status: Acute Assessment & Plan: Pth was ordered. Code(s): E83.51 - HYPOCALCEMIA (8) Hypoxemia Current Visit: No Status: Acute Assessment & Plan: Patient is on oxygen at home. He uses as needed. He will continue using as needed following discharge. Code(s): R09.02 - HYPOXEMIA - Discharge Disposition: Home, Self-Care Condition: Stable Prescriptions: New Apixaban [Eliquis] 10 mg PO BID 7 Days #28 tab.ds.pk Guaifenesin [Mucinex] 1,200 mg PO BID 5 Days #10 tab.er.12h Pharmacy Dose Request: Gentami [Pharmacy Dosing Required: Gentamicin] 1 each IV STAT 7 Days #7 each Benzonatate [Tessalon Perle] 200 mg PO TID 5 Days #30 capsule Continue Atenolol 12.5 mg PO DAILY Dronedarone Hydrochloride 400* [Multaq 400 MG] 400 mg PO BID Fluticasone/Vilanterol [Breo Ellipta 200-25 Mcg INH] 1 puff IH DAILY Finasteride 5 mg [Proscar 5 MG] 5 mg PO HS Albuterol Sulfate [Proair Respiclick] 2 puffs IH Q6H Cholecalciferol (Vitamin D3) [D3-2000] 2,000 unit PO HS PANTOPRAZOLE 40 mg Tablet [Protonix 40MG Tablet] 40 mg PO DAILY Aspirin EC 81 mg [Ecotrin 81 mg] 1 tab PO DAILY Allopurinol 100 mg [Zyloprim 100 mg] 100 mg PO DAILY Atorvastatin Calcium [Lipitor 40Mg] 40 mg PO HS Levothyroxine Sodium 75 Mcg [Synthroid 75 Mcg] 75 mcg PO DAILY Fluticasone Propionate [Flonase NASAL] 1 spray NS DAILY Gabapentin 300 mg [Neurontin 300 mg] 300 mg PO TID Albuterol/Ipratropium 3ml Neb* [DUONEB 0.5-3 MG/3 ml Neb] 1 neb IH Q6H PRN PRN PRN Reason: Shortness Of Breath Discontinued Clopidogrel Bisulfate [Clopidogrel] 75 mg PO DAILY Additional Instructions: CONTACT SOLANGE BRADSHAW IF YOUR INTERESTED IN TALKING WITH HER ABOUT DIFFERENT INSURANCE OPTIONS OR DISCUSSING YOUR MEDICAID. HER PHONE NUMBER IS [phone] EXT [phone] Bragg in the next week so he can get refill of eliquis. He needs to continue on this medication instead of plavix. He is on the initial tx dose but this should decreased from 20 mg to 10 mg daily after 7 days. Follow up with: KENAN BRAGG [Primary Care Provider] -
== END 2021-01-04 16:03 | disposition home or self-care (01) ==
LOC: ED 09:33 → MED SURG 14:57
PROVIDERS: ADMIT Family Medicine; ATTEND Family Medicine
DX: I26.99 Other pulmonary embolism without acute cor pulmonale (principal); R07.81 Pleurodynia; I10 Essential (primary) hypertension; J15.1 Pneumonia due to Pseudomonas; Y95 Nosocomial condition; E03.9 Hypothyroidism, unspecified; E83.51 Hypocalcemia; J44.9 Chronic obstructive pulmonary disease, unspecified; Z79.899 Other long term (current) drug therapy; E78.00 Pure hypercholesterolemia, unspecified; R05 Cough; R06.02 Shortness of breath; D69.6 Thrombocytopenia, unspecified; R17 Unspecified jaundice; R09.02 Hypoxemia; Z85.118 Personal history of other malignant neoplasm of bronchus and lung; Z20.828 Contact with and (suspected) exposure to other viral communicable diseases
CPT/HCPCS: 36415; 71045; 71260; 80053; 81241; 83090; 83605; 83735; 83880; 83970; 84484; 85025; 85379; 85610; 85730; 87040; 87070; 87077; 87186; 87400; 93005; 93041; 93306; 94640; 94760; 94762; 96372; 99285; 99291; U0003; 93268; J0456; J0696; J1650; A9270-GY; G0378

== ENCOUNTER 2021-01-06 12:13 | Observation (INO) | payer MEDICARE ==
--- NOTE | 2021-01-06 12:28 | ERPHSYRPT ---
- History of Present Illness Time Seen by Provider: 01/06/21 12:25 Source: patient, family Exam Limitations: no limitations Physician History: 71 yr old pt recently admitted and DC 2 days ago for PE; and pneumonia, returns with shortness of breath increasing today. and now vomiting but no abd pain or tenderness Timing/Duration: day(s) Cough Quality/Degree: productive cough Possible Cause: frequent episodes Modifying Factors: Improves With: coughing Associated Symptoms: chest pain/soreness, cough, shortness of breath, other (vomiting) Allergies/Adverse Reactions: levofloxacin Allergy (Intermediate, Verified 01/06/21 12:49) Hives Home Medications: Atenolol 12.5 mg PO DAILY 08/02/16 [History] Dronedarone Hydrochloride 400* [Multaq 400 MG] 400 mg PO BID 09/29/16 [History] Fluticasone/Vilanterol [Breo Ellipta 200-25 Mcg INH] 1 puff IH DAILY 03/10/17 [History] Albuterol Sulfate [Proair Respiclick] 2 puffs IH Q6H 11/25/18 [History] Cholecalciferol (Vitamin D3) [D3-2000] 2,000 unit PO HS 11/25/18 [History] Finasteride 5 mg [Proscar 5 MG] 5 mg PO HS 11/25/18 [History] Aspirin EC 81 mg [Ecotrin 81 mg] 1 tab PO DAILY 04/15/19 [History] PANTOPRAZOLE 40 mg Tablet [Protonix 40MG Tablet] 40 mg PO DAILY 04/15/19 [History] Allopurinol 100 mg [Zyloprim 100 mg] 100 mg PO DAILY 12/18/20 [History] Atorvastatin Calcium [Lipitor 40Mg] 40 mg PO HS 12/18/20 [History] Fluticasone Propionate [Flonase NASAL] 1 spray NS DAILY 12/18/20 [History] Gabapentin 300 mg [Neurontin 300 mg] 300 mg PO TID 12/18/20 [History] Levothyroxine Sodium 75 Mcg [Synthroid 75 Mcg] 75 mcg PO DAILY 12/18/20 [History] Albuterol/Ipratropium 3ml Neb* [DUONEB 0.5-3 MG/3 ml Neb] 1 neb IH Q6H PRN PRN 01/02/21 [History] Hx Tetanus, Diphtheria Vaccination/Date Given: Yes Hx Influenza Vaccination/Date Given: Yes Hx Pneumococcal Vaccination/Date Given: Yes Travel Risk - Vaccine Status Have you recieved a Covid-19 vaccination: No - Review of Systems Constitutional: No Fever, No Chills Eyes: No Symptoms Ears, Nose, & Throat: No Symptoms Respiratory: No Cough, No Dyspnea Cardiac: No Chest Pain, No Edema, No Syncope Abdominal/Gastrointestinal: No Abdominal Pain, No Nausea, No Vomiting, No Diarrhea Genitourinary Symptoms: No Dysuria Musculoskeletal: No Back Pain, No Neck Pain Skin: No Rash Neurological: No Dizziness, No Focal Weakness, No Sensory Changes Psychological: No Symptoms Endocrine: No Symptoms Hematologic/Lymphatic: No Symptoms Immunological/Allergic: No Symptoms All Other Systems: Reviewed and Negative - Past Medical History Pertinent Past Medical History: Yes Neurological History: No Pertinent History ENT History: No Pertinent History Cardiac History: High Cholesterol, Hypertension Respiratory History: COPD, Lung Cancer, Pneumonia Endocrine Medical History: Hypothyroidism Musculoskeletal History: Osteoarthritis GI Medical History: No Pertinent History History: No Pertinent History Psycho-Social History: No Pertinent History Male Reproductive Disorders: No Pertinent History Other Medical History: PMHX WITH RECENT HOSPITALIZATION NOTED ABOVE. PATIENT REPORTS CHRONICALLY HAVING PAIN IN HIS FEET WITH OCCASIONAL CRAMPING. WAS SEEN BY [employer] RECENTLY FOR WOUND RIGHT LATERAL ANKLE. WAS EVALUATION FOR "POOR CIRCULATON" AT [facility] AND PER PATIENT WAS FINE. WOUND HEALED ABOUT 2 MONTHS AGO. SX HX: CHOLECYSTECTOMY, CARDIAC STENTS X 3 - Past Surgical History Past Surgical History: Yes Neuro Surgical History: No Pertinent History Cardiac: Cardiac Catheterization, Cardiac Stent Respiratory: No Pertinent History Gastrointestinal: Cholecystectomy Genitourinary: No Pertinent History Musculoskeletal: Other Male Surgical History: Other Other Surgical History: Mediastinoscopy and " urologic procedure." - Social History Smoking Status: Never smoker Exposure to second hand smoke: No Alcohol Use: None Drug Use: none Patient Lives Alone: No Significant Family History: no pertinent family hx - Nursing Vital Signs Nursing Vital Signs: Initial Vital Signs Temperature 98.9 F 01/06/21 12:27 Pulse Rate 77 01/06/21 12:27 Respiratory Rate 16 06/13/21 12:27 Blood Pressure 125/63 06/13/21 12:27 O2 Sat by Pulse Oximetry 93 L 01/06/21 12:27 Pain Scale Pain Intensity 5 - Physical Exam General Appearance: no apparent distress, alert Eye Exam: PERRL/EOMI, eyes nml inspection Ears, Nose, Throat Exam: normal ENT inspection, TMs normal, pharynx normal, moist mucous membranes Neck Exam: normal inspection, non-tender, supple, full range of motion Respiratory Exam: crackles/rales, rhonchi, No respiratory distress Cardiovascular Exam: regular rate/rhythm, normal heart sounds Gastrointestinal/Abdomen Exam: soft, No tenderness Rectal Exam: deferred Back Exam: normal inspection, No CVA tenderness, No vertebral tenderness Extremity Exam: normal inspection, normal range of motion Neurologic Exam: alert, oriented x 3, cooperative, normal mood/affect, sensation nml, No motor deficits Skin Exam: normal color, warm, dry, No rash Lymphatic Exam: No adenopathy - Course Nursing assessment & vital signs reviewed: Yes EKG Interpreted by Me: Sinus Rhythm, LAFB, Non-specific ST Changes, Other (similar to a prior tracing.) - Radiology Exams Chest X-ray Interpretation: Reviewed by me, Pneumonia (slightly increaswed LLL pneumonia since 02 January ) Ordered Tests: Active Orders 24 hr Category Date Time Status EKG-ER Only STAT Care 01/06/21 12:28 Active IV Insertion STAT Care 01/06/21 12:28 Active CHEST 1 VIEW (PORTABLE) Stat Exams 01/06/21 12:29 Taken CBC W DIFF Stat Lab 01/06/21 12:24 Completed CMP Stat Lab 01/06/21 12:24 Completed Lactic Acid Stat Lab 01/06/21 12:42 Completed NT PRO BNP Stat Lab 01/06/21 12:24 Completed TROPONIN Q3H Lab 01/06/21 12:24 Completed TROPONIN Q3H Lab 01/06/21 15:30 Ordered TROPONIN Q3H Lab 01/06/21 18:30 Ordered TROPONIN Q3H Lab 01/06/21 21:30 Ordered TROPONIN Q3H Lab 01/07/21 00:30 Ordered Respiratory Therapy Assessment DAILY RT 01/06/21 12:53 Active Medication Summary Generic Name Dose Route Start Last Admin Trade Name Freq PRN Reason Stop Dose Admin Sodium Chloride 1,000 mls @ 100 mls/hr 01/06/21 12:30 01/06/21 12:45 Sodium Chloride 0.9% 1000 Ml IV 02/05/21 12:29 100 mls/hr .Q10H ROHIT Administration Discontinued Medications Generic Name Dose Route Start Last Admin Trade Name Tay PRN Reason Stop Dose Admin Albuterol/Ipratropium 3 ml 01/06/21 12:31 01/06/21 12:51 Duoneb 0.5-3 Mg/3 Ml Neb IH 01/06/21 12:32 3 ml STAT ONE Administration Albuterol/Ipratropium Confirm 01/06/21 12:40 Duoneb 0.5-3 Mg/3 Ml Neb Administered 01/06/21 12:41 Dose 3 ml IH .STK-MED ONE Methylprednisolone Sodium Succinate 125 mg 01/06/21 12:30 01/06/21 12:46 Solu-Medrol 125 Mg IV 01/06/21 12:31 125 mg STAT ONE Administration Methylprednisolone Sodium Succinate Confirm 01/06/21 12:38 Solu-Medrol 125 Mg Administered 01/06/21 12:39 Dose 125 mg .ROUTE .STK-MED ONE Lab/Rad Data: Laboratory Result Diagrams 01/06/21 12:24 01/06/21 12:24 Laboratory Results 01/06/21 01/06/21 01/06/21 Range/Units 12:42 12:24 12:24 WBC (4.0-10.5) K/mm3 RBC (4.1-5.6) M/mm3 Hgb (12.5-18.0) gm/dl Hct (42-50) % MCV (78-100) fl MCH (26-32) pg MCHC (32-36) g/dl RDW (11.5-14.0) % Plt Count (150-450) K/mm3 MPV (7.5-11.0) fl Gran % (36.0-66.0) % Eos # (Auto) (0-0.5) Absolute Lymphs (auto) (1.0-4.6) Absolute Monos (auto) (0.0-1.3) Lymphocytes % (24.0-44.0) % Monocytes % (0.0-12.0) % Eosinophils % (0.00-5.0) % Basophils % (0.0-0.4) % Absolute Granulocytes (1.4-6.9) Basophils # (0-0.4) Sodium 129 L (137-145) mmol/L Potassium 4.3 (3.5-5.1) mmol/L Chloride 99 (98-107) mmol/L Carbon Dioxide 24 (22-30) mmol/L Anion Gap 10.2 (5-15) MEQ/L BUN 11 (9-20) mg/dL Creatinine 1.44 H (0.66-1.25) mg/dL Estimated GFR 51.1 ML/MIN Glucose 105 (74-106) mg/dL Lactic Acid 1.1 (0.4-2.0) Calcium 8.7 (8.4-10.2) mg/dL Total Bilirubin 3.00 H (0.2-1.3) mg/dL AST 44 (17-59) U/L ALT 53 H (0-50) U/L Alkaline Phosphatase 73 (38-126) U/L Troponin I < 0.012 (0.000-0.034) ng/mL NT-Pro-B Natriuret Pep 195 (0-900) pg/mL Serum Total Protein 6.5 (6.3-8.2) g/dL Albumin 3.7 (3.5-5.0) g/dL 01/06/21 Range/Units 12:24 WBC 6.8 (4.0-10.5) K/mm3 RBC 4.30 (4.1-5.6) M/mm3 Hgb 13.8 (12.5-18.0) gm/dl Hct 42.6 (42-50) % MCV 99.1 (78-100) fl MCH 32.1 H (26-32) pg MCHC 32.4 (32-36) g/dl RDW 15.1 H (11.5-14.0) % Plt Count 117 L (150-450) K/mm3 MPV 9.1 (7.5-11.0) fl Gran % 77.4 H (36.0-66.0) % Eos # (Auto) 0.18 (0-0.5) Absolute Lymphs (auto) 0.82 L (1.0-4.6) Absolute Monos (auto) 0.52 (0.0-1.3) Lymphocytes % 12.1 L (24.0-44.0) % Monocytes % 7.7 (0.0-12.0) % Eosinophils % 2.7 (0.00-5.0) % Basophils % 0.1 (0.0-0.4) % Absolute Granulocytes 5.24 (1.4-6.9) Basophils # 0.01 (0-0.4) Sodium (137-145) mmol/L Potassium (3.5-5.1) mmol/L Chloride (98-107) mmol/L Carbon Dioxide (22-30) mmol/L Anion Gap (5-15) MEQ/L BUN (9-20) mg/dL Creatinine (0.66-1.25) mg/dL Estimated GFR ML/MIN Glucose (74-106) mg/dL Lactic Acid (0.4-2.0) Calcium (8.4-10.2) mg/dL Total Bilirubin (0.2-1.3) mg/dL AST (17-59) U/L ALT (0-50) U/L Alkaline Phosphatase (38-126) U/L Troponin I (0.000-0.034) ng/mL NT-Pro-B Natriuret Pep (0-900) pg/mL Serum Total Protein (6.3-8.2) g/dL Albumin (3.5-5.0) g/dL - Progress Progress: re-examined Air Movement: good Progress Note: 01/06/21 15:04 discussed with pt , family and Dr. Zavaleta covering , and all agree to place in on Obs; Dr. Zavaleta will manage AB , discussed Na and elevated RFTs, vomiting and slight increase in pneumonia infiltrate. . Blood Culture(s) Obtained: No Antibiotics given: No Discussed with : Levi Will see patient in: hospital (observation) Counseled pt/family regarding: lab results, diagnosis, need for follow-up, rad results - Departure Departure Disposition: Observation Clinical Impression: Pseudomonas pneumonia, Pulmonary embolism, Intractable vomiting, Hyponatremia, Renal insufficiency Condition: Good Critical Care Time: No Referrals: KENNA VARGAS [Primary Care Provider] -
[2021-01-06] MEDS ORDERED: Sodium Chloride 0.9% 1000 ML 1,000 ML IV SCH ×2 (12:30→16:54)
[2021-01-06] MEDS ORDERED: solu-MEDROL 125 MG IV ONE (12:30)
[2021-01-06] MEDS ORDERED: DUONEB 0.5-3 MG/3 ml Neb IH ONE ×2 (12:31→12:40)
[2021-01-06] MEDS ORDERED: solu-MEDROL 125 MG ONE (12:38)
[2021-01-06] MEDS ORDERED: Sodium Chloride 0.9% 1000 ML 1,000 ML ONE (12:38)
[2021-01-06 12:53] LABS: Absolute Neutrophil Ct (ANC) 5.24 (1.4-6.9); BASOPHIL % 0.1 % (0.0-0.4); Basophil (Absolute #) 0.01 (0-0.4); Eosinophil % 2.7 % (0.00-5.0); Eosinophil (Absolute #) 0.18 (0-0.5); Hematocrit 42.6 % (42-50); Hemoglobin 13.8 gm/dl (12.5-18.0); Lymphocyte (Absolute #) 0.82 (1.0-4.6); Lymphocytes % 12.1 % (24.0-44.0); Mean Cell Volume 99.1 fl (78-100); Mean Corpuscular Hemoglobin 32.1 pg (26-32); Mean Corpuscular Hgb Concent. 32.4 g/dl (32-36); Mean Platelet Volume 9.1 fl (7.5-11.0); Monocyte (Absolute #) 0.52 (0.0-1.3); Monocytes % 7.7 % (0.0-12.0); Neutrophil % 77.4 % (36.0-66.0); Platelet Count 117 K/mm3 (150-450); Red Cell Distribution Width 15.1 % (11.5-14.0); White Blood Count 6.8 K/mm3 (4.0-10.5)
[2021-01-06 13:11] LABS: ALBUMIN 3.7 g/dL (3.5-5.0); ANION GAP 10.2 MEQ/L (5-15); Calcium 8.7 mg/dL (8.4-10.2); Creatinine 1 1.44 mg/dL (0.66-1.25); EST GLOMERULAR FILTRATION RATE 51.1 ML/MIN; Potassium 4.3 mmol/L (3.5-5.1); Total Protein 6.5 g/dL (6.3-8.2)
[2021-01-06] MEDS ORDERED: MORPHINE SULFATE 2 MG INJ IV PRN (16:54)
[2021-01-06] MEDS ORDERED: HUMALOG SQ PRN (16:54)
[2021-01-06] MEDS: DUONEB 0.5-3 MG/3 ml Neb IH SCH (17:14)
[2021-01-06] MEDS ORDERED: Robitussin 100 MG/5 ML PO PRN (18:03)
[2021-01-06] MEDS ORDERED: Merrem 1 GM IV ONE (18:06)
[2021-01-06] MEDS ORDERED: Sodium Chloride 100ML MINI-BAG PLUS 100 ML IV ONE (18:06)
[2021-01-06] MEDS ORDERED: Zofran 4 MG/2 ML VIAL IV PRN (18:13)
[2021-01-06] MEDS ORDERED: Robitussin-Dm Syrup PO PRN (18:13)
[2021-01-06] MEDS: Merrem 1 GM 1 G in Sodium Chloride 100ML MINI-BAG PLUS 100 ML IV SCH (18:17)
[2021-01-06] MEDS ORDERED: DUONEB 0.5-3 MG/3 ml Neb IH SCH (19:00)
--- NOTE | 2021-01-06 19:02 | XRAY ---
Indication: Pneumonia. Short of breath. Comparison: January 02, 2021. Portable apical lordotic chest remains underinflated with new patchy right upper lobe airspace opacity and right mid peripheral subsegmental atelectasis. Heart remains enlarged again obscuring left lung base. Bony thorax intact.
[2021-01-06] MEDS: ELIQUIS 2.5 MG TABLET PO SCH (21:56)
[2021-01-06] MEDS: Pepcid 20 MG VIAL IV SCH (21:56)
[2021-01-06] MEDS: Multaq 400 MG PO SCH (21:56)
[2021-01-06] MEDS: Neurontin 100 MG PO SCH (21:57)
[2021-01-06] MEDS ORDERED: LIPITOR 40MG PO SCH (22:00)
[2021-01-06] MEDS ORDERED: Proscar 5 MG PO SCH (22:00)
[2021-01-07 01:01] LABS: Hematocrit 38.9 % (42-50); Hemoglobin 12.8 gm/dl (12.5-18.0); Mean Cell Volume 97.7 fl (78-100); Mean Corpuscular Hemoglobin 32.2 pg (26-32); Mean Corpuscular Hgb Concent. 32.9 g/dl (32-36); Mean Platelet Volume 9.3 fl (7.5-11.0); Platelet Count 109 K/mm3 (150-450); Red Blood Count 3.98 M/mm3 (4.1-5.6); Red Cell Distribution Width 14.5 % (11.5-14.0); White Blood Count 3.9 K/mm3 (4.0-10.5)
[2021-01-07 01:28] LABS: ALKALINE PHOSPHATASE 66 U/L (38-126); ANION GAP 12.4 MEQ/L (5-15); BLOOD UREA NITROGEN 15 mg/dL (9-20); CHLORIDE 105 mmol/L (98-107); Calcium 8.2 mg/dL (8.4-10.2); Carbon Dioxide 21 mmol/L (22-30); Creatinine 1 1.11 mg/dL (0.66-1.25); EST GLOMERULAR FILTRATION RATE > 60.0 ML/MIN; Glucose 167 mg/dL (74-106); Potassium 4.3 mmol/L (3.5-5.1); SGOT/AST 33 U/L (17-59); SGPT/ALT 45 U/L (0-50); SODIUM 134 mmol/L (137-145); Total Protein 5.3 g/dL (6.3-8.2)
[2021-01-07] MEDS: DUONEB 0.5-3 MG/3 ml Neb IH SCH ×3 (06:39→14:57)
[2021-01-07] MEDS ORDERED: Merrem 1 GM IV ONE (06:44)
[2021-01-07] MEDS ORDERED: Sodium Chloride 100ML MINI-BAG PLUS 100 ML IV ONE (06:45)
[2021-01-07] MEDS: Merrem 1 GM 1 G in Sodium Chloride 100ML MINI-BAG PLUS 100 ML IV SCH ×2 (06:51→14:17)
[2021-01-07] MEDS ORDERED: SYNTHROID 75 MCG PO SCH (07:00)
--- NOTE | 2021-01-07 08:55 | PCM.SSS ---
History of Present Illness - Chief Complaint Chief Complaint: pneumonia History of Present Illness: is a 71 year old male pt of mine from [facility] with COPD, CAD, HTN, hyperlipidemia, and hypothyroidism who was admitted through ER with vomiting. He had been in the hospital last week, was d/c'd 3d ago (had PE and pseudomonas and E. coli in the sputum). He was returning from his outpatient gentamycin infusion (dose #2) and got something to eat at the store on the way home. After he ate he just started vomiting. Denied abd pain at the time. Pt is feeling much better today. Started IV meropenem in the hospital (day #2). He is dejon po well. Breathing is better. CXR in ER showed new RUL patchy opacity. C/o some LLQ/L mid abd pain, worse with palpation. C/o extensive bruising on the L flank and throughout the abdomen x 3d. C/o soft stool this morning. - Review of Systems Constitutional: Weakness (fell several days ago, no syncope) Ears, Nose, & Throat: Other (some hard of hearing) Respiratory: Cough, Short Of Breath Abdominal/Gastrointestinal: Abdominal Pain, Vomiting, Diarrhea (soft stool this morning) Genitourinary Symptoms: No Hematuria All Other Systems: Reviewed and Negative Medications & Allergies Home Medications: Home Medication List Atenolol 12.5 mg PO DAILY 08/02/16 [History Confirmed 01/06/21] Dronedarone Hydrochloride 400* [Multaq 400 MG] 400 mg PO BID 09/29/16 [History Confirmed 01/06/21] Fluticasone/Vilanterol [Breo Ellipta 200-25 Mcg INH] 1 puff IH DAILY 03/10/17 [History Confirmed 01/06/21] Albuterol Sulfate [Proair Respiclick] 2 puffs IH Q6H 11/25/18 [History Confirmed 01/06/21] Cholecalciferol (Vitamin D3) [D3-2000] 2,000 unit PO HS 11/25/18 [History Confirmed 01/06/21] Finasteride 5 mg [Proscar 5 MG] 5 mg PO HS 11/25/18 [History Confirmed 01/06/21] Aspirin EC 81 mg [Ecotrin 81 mg] 1 tab PO DAILY 04/15/19 [History Confirmed 01/06/21] PANTOPRAZOLE 40 mg Tablet [Protonix 40MG Tablet] 40 mg PO DAILY 04/15/19 [History Confirmed 01/06/21] Allopurinol 100 mg [Zyloprim 100 mg] 100 mg PO DAILY 12/18/20 [History Confirmed 01/06/21] Atorvastatin Calcium [Lipitor 40Mg] 40 mg PO HS 12/18/20 [History Confirmed 01/06/21] Fluticasone Propionate [Flonase NASAL] 1 spray NS DAILY 12/18/20 [History Confirmed 01/06/21] Gabapentin 300 mg [Neurontin 300 mg] 300 mg PO TID 12/18/20 [History Confirmed 01/06/21] Levothyroxine Sodium 75 Mcg [Synthroid 75 Mcg] 75 mcg PO DAILY 12/18/20 [History Confirmed 01/06/21] Albuterol/Ipratropium 3ml Neb* [DUONEB 0.5-3 MG/3 ml Neb] 1 neb IH Q6H PRN PRN 01/02/21 [History Confirmed 01/06/21] Apixaban [Eliquis] 10 mg PO BID 7 Days #28 tab.ds.pk 01/04/21 [Rx Confirmed 01/06/21] Benzonatate [Tessalon Perle] 200 mg PO TID 5 Days #30 capsule 01/04/21 [Rx Confi rmed 01/06/21] Guaifenesin [Mucinex] 1,200 mg PO BID 5 Days #10 tab.er.12h 01/04/21 [Rx Confirmed 01/06/21] Pharmacy Dose Request: Gentami [Pharmacy Dosing Required: Gentamicin] 1 each IV STAT 7 Days #7 each 01/04/21 [Rx Confirmed 01/06/21] Allergies/Adverse Reactions: Allergies Allergy/AdvReac Type Severity Reaction Status Date / Time levofloxacin Allergy Intermediate Hives Verified 01/06/21 17:29 - Past Medical History Past Medical History: Yes Neurological History: No Pertinent History ENT History: No Pertinent History Cardiac History: High Cholesterol, Hypertension Respiratory History: COPD, Lung Cancer, Pneumonia Endocrine Medical History: Hypothyroidism Musculoskelatal History: Osteoarthritis GI Medical History: No Pertinent History History: No Pertinent History Pyscho-Social History: No Pertinent History Male Reproductive Disorders: No Pertinent History Comment: PMHX WITH RECENT HOSPITALIZATION NOTED ABOVE. PATIENT REPORTS CHRONICALLY HAVING PAIN IN HIS FEET WITH OCCASIONAL CRAMPING. . WAS EVALUATION FOR "POOR CIRCULATON" AT [facility] AND PER PATIENT WAS FINE. SX HX: CHOLECYSTECTOMY, CARDIAC STENTS X 3 - Past Surgical History Past Surgical History: Yes Neuro Surgical History: No Pertinent History Cardiac History: Cardiac Catheterization, Cardiac Stent Respiratory Surgery: No Pertinent History GI Surgical History: Cholecystectomy Genitourinary Surgical Hx: No Pertinent History Musculskeletal Surgical Hx: Other Male Surgical History: Other Other Surgical History: Mediastinoscopy and " urologic procedure." - Social History Smoking Status: Never smoker Exposure to second hand smoke: No Alcohol: Rarely Drug Use: none Significant Family History: no pertinent family hx - Physical Exam Vital Signs: Vital Signs - 24 hr Temp Pulse Resp BP Pulse Ox 01/07/21 06:47 98.2 F 75 16 130/82 98 01/07/21 04:00 17 01/07/21 03:35 97.7 F 78 17 135/58 92 L 01/07/21 00:00 17 01/06/21 23:44 98.2 F 83 17 112/59 95 01/06/21 20:00 18 01/06/21 19:41 98.0 F 83 18 120/61 95 01/06/21 17:51 93 L 01/06/21 17:40 87 L 01/06/21 17:18 70 18 94 L 01/06/21 16:54 98.1 F 69 18 130/60 93 L 01/06/21 16:52 98.1 F 69 18 130/60 01/06/21 13:27 83 19 138/73 93 L 01/06/21 12:54 74 21 93 L 01/06/21 12:27 98.9 F 77 16 125/63 93 L General Appearance: no apparent distress, alert Neurologic Exam: oriented x 3, cooperative Eye Exam: eyes nml inspection Ears, Nose, Throat Exam: moist mucous membranes, other (some mild hearing deficit) Neck Exam: normal inspection, non-tender, No lymphadenopathy Respiratory Exam: lungs clear, diminished breath sounds (fair air exchange), wheezing (RUL), No crackles/rales, No rhonchi Cardiovascular Exam: regular rate/rhythm, normal heart sounds, No murmur Gastrointestinal/Abdomen Exam: soft, normal bowel sounds, tenderness (LLQ, L mid abd), other (extensive macular purple discoloration L flank; scattered purple discoloration throughout anterior abdomen), No distention, No mass Back Exam: normal inspection, No rash Extremity Exam: normal inspection, No pedal edema, No swelling Skin Exam: warm, dry, No rash Results - Labs Lab/Micro Results: Lab Results-Last 24 Hours 01/06/21 01/06/21 01/06/21 Range/Units 12:24 12:24 12:24 WBC 6.8 (4.0-10.5) K/mm3 RBC 4.30 (4.1-5.6) M/mm3 Hgb 13.8 (12.5-18.0) gm/dl Hct 42.6 (42-50) % MCV 99.1 (78-100) fl MCH 32.1 H (26-32) pg MCHC 32.4 (32-36) g/dl RDW 15.1 H (11.5-14.0) % Plt Count 117 L (150-450) K/mm3 MPV 9.1 (7.5-11.0) fl Gran % 77.4 H (36.0-66.0) % Eos # (Auto) 0.18 (0-0.5) Absolute Lymphs (auto) 0.82 L (1.0-4.6) Absolute Monos (auto) 0.52 (0.0-1.3) Lymphocytes % 12.1 L (24.0-44.0) % Monocytes % 7.7 (0.0-12.0) % Eosinophils % 2.7 (0.00-5.0) % Basophils % 0.1 (0.0-0.4) % Absolute Granulocytes 5.24 (1.4-6.9) Basophils # 0.01 (0-0.4) Sodium 129 L (137-145) mmol/L Potassium 4.3 (3.5-5.1) mmol/L Chloride 99 (98-107) mmol/L Carbon Dioxide 24 (22-30) mmol/L Anion Gap 10.2 (5-15) MEQ/L BUN 11 (9-20) mg/dL Creatinine 1.44 H (0.66-1.25) mg/dL Estimated GFR 51.1 ML/MIN Glucose 105 (74-106) mg/dL POC Glucometer (74 to 106) mg/dL Hemoglobin A1c (4.5-6.0) % Lactic Acid (0.4-2.0) Calcium 8.7 (8.4-10.2) mg/dL Total Bilirubin 3.00 H (0.2-1.3) mg/dL AST 44 (17-59) U/L ALT 53 H (0-50) U/L Alkaline Phosphatase 73 (38-126) U/L Troponin I < 0.012 (0.000-0.034) ng/mL NT-Pro-B Natriuret Pep 195 (0-900) pg/mL Serum Total Protein 6.5 (6.3-8.2) g/dL Albumin 3.7 (3.5-5.0) g/dL SARS-CoV-2 (PCR) (NEGATIVE) 01/06/21 01/06/21 01/06/21 Range/Units 12:30 12:42 15:18 WBC (4.0-10.5) K/mm3 RBC (4.1-5.6) M/mm3 Hgb (12.5-18.0) gm/dl Hct (42-50) % MCV (78-100) fl MCH (26-32) pg MCHC (32-36) g/dl RDW (11.5-14.0) % Plt Count (150-450) K/mm3 MPV (7.5-11.0) fl Gran % (36.0-66.0) % Eos # (Auto) (0-0.5) Absolute Lymphs (auto) (1.0-4.6) Absolute Monos (auto) (0.0-1.3) Lymphocytes % (24.0-44.0) % Monocytes % (0.0-12.0) % Eosinophils % (0.00-5.0) % Basophils % (0.0-0.4) % Absolute Granulocytes (1.4-6.9) Basophils # (0-0.4) Sodium (137-145) mmol/L Potassium (3.5-5.1) mmol/L Chloride (98-107) mmol/L Carbon Dioxide (22-30) mmol/L Anion Gap (5-15) MEQ/L BUN (9-20) mg/dL Creatinine (0.66-1.25) mg/dL Estimated GFR ML/MIN Glucose (74-106) mg/dL POC Glucometer (74 to 106) mg/dL Hemoglobin A1c 5.65 (4.5-6.0) % Lactic Acid 1.1 (0.4-2.0) Calcium (8.4-10.2) mg/dL Total Bilirubin (0.2-1.3) mg/dL AST (17-59) U/L ALT (0-50) U/L Alkaline Phosphatase (38-126) U/L Troponin I (0.000-0.034) ng/mL NT-Pro-B Natriuret Pep (0-900) pg/mL Serum Total Protein (6.3-8.2) g/dL Albumin (3.5-5.0) g/dL SARS-CoV-2 (PCR) NEGATIVE (NEGATIVE) 01/06/21 01/06/21 01/06/21 Range/Units 15:27 18:37 21:32 WBC (4.0-10.5) K/mm3 RBC (4.1-5.6) M/mm3 Hgb (12.5-18.0) gm/dl Hct (42-50) % MCV (78-100) fl MCH (26-32) pg MCHC (32-36) g/dl RDW (11.5-14.0) % Plt Count (150-450) K/mm3 MPV (7.5-11.0) fl Gran % (36.0-66.0) % Eos # (Auto) (0-0.5) Absolute Lymphs (auto) (1.0-4.6) Absolute Monos (auto) (0.0-1.3) Lymphocytes % (24.0-44.0) % Monocytes % (0.0-12.0) % Eosinophils % (0.00-5.0) % Basophils % (0.0-0.4) % Absolute Granulocytes (1.4-6.9) Basophils # (0-0.4) Sodium (137-145) mmol/L Potassium (3.5-5.1) mmol/L Chloride (98-107) mmol/L Carbon Dioxide (22-30) mmol/L Anion Gap (5-15) MEQ/L BUN (9-20) mg/dL Creatinine (0.66-1.25) mg/dL Estimated GFR ML/MIN Glucose (74-106) mg/dL POC Glucometer (74 to 106) mg/dL Hemoglobin A1c (4.5-6.0) % Lactic Acid (0.4-2.0) Calcium (8.4-10.2) mg/dL Total Bilirubin (0.2-1.3) mg/dL AST (17-59) U/L ALT (0-50) U/L Alkaline Phosphatase (38-126) U/L Troponin I < 0.012 < 0.012 < 0.012 (0.000-0.034) ng/mL NT-Pro-B Natriuret Pep (0-900) pg/mL Serum Total Protein (6.3-8.2) g/dL Albumin (3.5-5.0) g/dL SARS-CoV-2 (PCR) (NEGATIVE) 01/06/21 01/07/21 01/07/21 Range/Units 21:46 00:56 00:57 WBC 3.9 L (4.0-10.5) K/mm3 RBC 3.98 L (4.1-5.6) M/mm3 Hgb 12.8 (12.5-18.0) gm/dl Hct 38.9 L (42-50) % MCV 97.7 (78-100) fl MCH 32.2 H (26-32) pg MCHC 32.9 (32-36) g/dl RDW 14.5 H (11.5-14.0) % Plt Count 109 L (150-450) K/mm3 MPV 9.3 (7.5-11.0) fl Gran % (36.0-66.0) % Eos # (Auto) (0-0.5) Absolute Lymphs (auto) (1.0-4.6) Absolute Monos (auto) (0.0-1.3) Lymphocytes % (24.0-44.0) % Monocytes % (0.0-12.0) % Eosinophils % (0.00-5.0) % Basophils % (0.0-0.4) % Absolute Granulocytes (1.4-6.9) Basophils # (0-0.4) Sodium (137-145) mmol/L Potassium (3.5-5.1) mmol/L Chloride (98-107) mmol/L Carbon Dioxide (22-30) mmol/L Anion Gap (5-15) MEQ/L BUN (9-20) mg/dL Creatinine (0.66-1.25) mg/dL Estimated GFR ML/MIN Glucose (74-106) mg/dL POC Glucometer 203 H (74 to 106) mg/dL Hemoglobin A1c (4.5-6.0) % Lactic Acid (0.4-2.0) Calcium (8.4-10.2) mg/dL Total Bilirubin (0.2-1.3) mg/dL AST (17-59) U/L ALT (0-50) U/L Alkaline Phosphatase (38-126) U/L Troponin I < 0.012 (0.000-0.034) ng/mL NT-Pro-B Natriuret Pep (0-900) pg/mL Serum Total Protein (6.3-8.2) g/dL Albumin (3.5-5.0) g/dL SARS-CoV-2 (PCR) (NEGATIVE) 01/07/21 01/07/21 Range/Units 00:57 06:57 WBC (4.0-10.5) K/mm3 RBC (4.1-5.6) M/mm3 Hgb (12.5-18.0) gm/dl Hct (42-50) % MCV (78-100) fl MCH (26-32) pg MCHC (32-36) g/dl RDW (11.5-14.0) % Plt Count (150-450) K/mm3 MPV (7.5-11.0) fl Gran % (36.0-66.0) % Eos # (Auto) (0-0.5) Absolute Lymphs (auto) (1.0-4.6) Absolute Monos (auto) (0.0-1.3) Lymphocytes % (24.0-44.0) % Monocytes % (0.0-12.0) % Eosinophils % (0.00-5.0) % Basophils % (0.0-0.4) % Absolute Granulocytes (1.4-6.9) Basophils # (0-0.4) Sodium 134 L (137-145) mmol/L Potassium 4.3 (3.5-5.1) mmol/L Chloride 105 (98-107) mmol/L Carbon Dioxide 21 L (22-30) mmol/L Anion Gap 12.4 (5-15) MEQ/L BUN 15 (9-20) mg/dL Creatinine 1.11 (0.66-1.25) mg/dL Estimated GFR > 60.0 ML/MIN Glucose 167 H (74-106) mg/dL POC Glucometer 152 H (74 to 106) mg/dL Hemoglobin A1c (4.5-6.0) % Lactic Acid (0.4-2.0) Calcium 8.2 L (8.4-10.2) mg/dL Total Bilirubin 1.30 (0.2-1.3) mg/dL AST 33 (17-59) U/L ALT 45 (0-50) U/L Alkaline Phosphatase 66 (38-126) U/L Troponin I (0.000-0.034) ng/mL NT-Pro-B Natriuret Pep (0-900) pg/mL Serum Total Protein 5.3 L (6.3-8.2) g/dL Albumin 3.0 L (3.5-5.0) g/dL SARS-CoV-2 (PCR) (NEGATIVE) Accuchecks Date 01/07/21 Date 01/06/21 Time 06:58 Time 22:00 - Radiology Impressions Radiology Exams & Impressions: Radiology Procedures Category Date Time Status CHEST 1 VIEW (PORTABLE) Stat Exams 01/06/21 12:29 Completed - Other Procedures and Tests Respiratory Therapy 01/06/21 12:53 Respiratory Therapy Assessment DAILY 01/06/21 16:54 Oxygen Nasal Cannula 2 lpm Assessment/Plan (1) Pseudomonas pneumonia Current Visit: Yes Status: Acute Qualifiers: Laterality: bilateral Assessment & Plan: To be discharged on gentamycin once daily and cefepime twice daily to cover the pseudomonas. (2) Pulmonary embolism Current Visit: Yes Status: Acute Qualifiers: Pulmonary embolism type: unspecified Acute cor pulmonale presence: without acute cor pulmonale Assessment & Plan: stay on Eliquis Code(s): I26.99 - OTHER PULMONARY EMBOLISM WITHOUT ACUTE COR PULMONALE (3) COPD (chronic obstructive pulmonary disease) Current Visit: No Status: Chronic Qualifiers: COPD type: chronic bronchitis Chronic bronchitis type: unspecified Qualified Code(s): J42 - Unspecified chronic bronchitis Assessment & Plan: f/u with Dr. Thao outpatient. May need to start Daliresp outpatient. (4) Intractable vomiting Current Visit: Yes Status: Resolved Qualifiers: Vomiting type: unspecified Nausea presence: without nausea Qualified Code(s): R11.11 - Vomiting without nausea Code(s): R11.10 - VOMITING, UNSPECIFIED Hospital Summary - Hospital Course Hospital Course: Pt with COPD and CAD admitted through ER with vomiting, after starting IV gentamycin and now on Eliquis for PE. Given IV meropenem for Pseudomonas in sputum. He feels good the morning after admission. Will be sent home ideally on gentamycin once daily and cefepime BID, with zofran given with the gentamycin in the event the vomiting was a medication reaction. Pt is anxious to d/c to home as he is responsible for caring for his . Will do CT abd/pelvis with contrast to workup with abd pain and bruising. He has seen Dr. Thao in the past, so will f/u with him oupatient. Would start Deliresp outpatient at 250mg po daily x 4 weeks, then increase to 500mcg daily. - Vitals & Intake/Output Vital Signs: Vital Signs Temperature 98.2 F 01/07/21 06:47 Pulse Rate 75 01/07/21 06:47 Respiratory Rate 16 01/07/21 06:47 Blood Pressure 130/82 01/07/21 06:47 O2 Sat by Pulse Oximetry 98 01/07/21 06:47 Intake & Output: Intake & Output 01/04/21 01/05/21 01/06/21 01/07/21 11:59 11:59 11:59 11:59 Intake Total 1308 Balance 1308 Weight 89.7 kg - Lab Result Diagrams: 01/07/21 00:57 01/07/21 00:57 Lab Results-Last 24 Hrs: Lab Results-Last 24 Hours 01/06/21 01/06/21 01/06/21 Range/Units 12:24 12:24 12:24 WBC 6.8 (4.0-10.5) K/mm3 RBC 4.30 (4.1-5.6) M/mm3 Hgb 13.8 (12.5-18.0) gm/dl Hct 42.6 (42-50) % MCV 99.1 (78-100) fl MCH 32.1 H (26-32) pg MCHC 32.4 (32-36) g/dl RDW 15.1 H (11.5-14.0) % Plt Count 117 L (150-450) K/mm3 MPV 9.1 (7.5-11.0) fl Gran % 77.4 H (36.0-66.0) % Eos # (Auto) 0.18 (0-0.5) Absolute Lymphs (auto) 0.82 L (1.0-4.6) Absolute Monos (auto) 0.52 (0.0-1.3) Lymphocytes % 12.1 L (24.0-44.0) % Monocytes % 7.7 (0.0-12.0) % Eosinophils % 2.7 (0.00-5.0) % Basophils % 0.1 (0.0-0.4) % Absolute Granulocytes 5.24 (1.4-6.9) Basophils # 0.01 (0-0.4) Sodium 129 L (137-145) mmol/L Potassium 4.3 (3.5-5.1) mmol/L Chloride 99 (98-107) mmol/L Carbon Dioxide 24 (22-30) mmol/L Anion Gap 10.2 (5-15) MEQ/L BUN 11 (9-20) mg/dL Creatinine 1.44 H (0.66-1.25) mg/dL Estimated GFR 51.1 ML/MIN Glucose 105 (74-106) mg/dL POC Glucometer (74 to 106) mg/dL Hemoglobin A1c (4.5-6.0) % Lactic Acid (0.4-2.0) Calcium 8.7 (8.4-10.2) mg/dL Total Bilirubin 3.00 H (0.2-1.3) mg/dL AST 44 (17-59) U/L ALT 53 H (0-50) U/L Alkaline Phosphatase 73 (38-126) U/L Troponin I < 0.012 (0.000-0.034) ng/mL NT-Pro-B Natriuret Pep 195 (0-900) pg/mL Serum Total Protein 6.5 (6.3-8.2) g/dL Albumin 3.7 (3.5-5.0) g/dL SARS-CoV-2 (PCR) (NEGATIVE) 01/06/21 01/06/21 01/06/21 Range/Units 12:30 12:42 15:18 WBC (4.0-10.5) K/mm3 RBC (4.1-5.6) M/mm3 Hgb (12.5-18.0) gm/dl Hct (42-50) % MCV (78-100) fl MCH (26-32) pg MCHC (32-36) g/dl RDW (11.5-14.0) % Plt Count (150-450) K/mm3 MPV (7.5-11.0) fl Gran % (36.0-66.0) % Eos # (Auto) (0-0.5) Absolute Lymphs (auto) (1.0-4.6) Absolute Monos (auto) (0.0-1.3) Lymphocytes % (24.0-44.0) % Monocytes % (0.0-12.0) % Eosinophils % (0.00-5.0) % Basophils % (0.0-0.4) % Absolute Granulocytes (1.4-6.9) Basophils # (0-0.4) Sodium (137-145) mmol/L Potassium (3.5-5.1) mmol/L Chloride (98-107) mmol/L Carbon Dioxide (22-30) mmol/L Anion Gap (5-15) MEQ/L BUN (9-20) mg/dL Creatinine (0.66-1.25) mg/dL Estimated GFR ML/MIN Glucose (74-106) mg/dL POC Glucometer (74 to 106) mg/dL Hemoglobin A1c 5.65 (4.5-6.0) % Lactic Acid 1.1 (0.4-2.0) Calcium (8.4-10.2) mg/dL Total Bilirubin (0.2-1.3) mg/dL AST (17-59) U/L ALT (0-50) U/L Alkaline Phosphatase (38-126) U/L Troponin I (0.000-0.034) ng/mL NT-Pro-B Natriuret Pep (0-900) pg/mL Serum Total Protein (6.3-8.2) g/dL Albumin (3.5-5.0) g/dL SARS-CoV-2 (PCR) NEGATIVE (NEGATIVE) 01/06/21 01/06/21 01/06/21 Range/Units 15:27 18:37 21:32 WBC (4.0-10.5) K/mm3 RBC (4.1-5.6) M/mm3 Hgb (12.5-18.0) gm/dl Hct (42-50) % MCV (78-100) fl MCH (26-32) pg MCHC (32-36) g/dl RDW (11.5-14.0) % Plt Count (150-450) K/mm3 MPV (7.5-11.0) fl Gran % (36.0-66.0) % Eos # (Auto) (0-0.5) Absolute Lymphs (auto) (1.0-4.6) Absolute Monos (auto) (0.0-1.3) Lymphocytes % (24.0-44.0) % Monocytes % (0.0-12.0) % Eosinophils % (0.00-5.0) % Basophils % (0.0-0.4) % Absolute Granulocytes (1.4-6.9) Basophils # (0-0.4) Sodium (137-145) mmol/L Potassium (3.5-5.1) mmol/L Chloride (98-107) mmol/L Carbon Dioxide (22-30) mmol/L Anion Gap (5-15) MEQ/L BUN (9-20) mg/dL Creatinine (0.66-1.25) mg/dL Estimated GFR ML/MIN Glucose (74-106) mg/dL POC Glucometer (74 to 106) mg/dL Hemoglobin A1c (4.5-6.0) % Lactic Acid (0.4-2.0) Calcium (8.4-10.2) mg/dL Total Bilirubin (0.2-1.3) mg/dL AST (17-59) U/L ALT (0-50) U/L Alkaline Phosphatase (38-126) U/L Troponin I < 0.012 < 0.012 < 0.012 (0.000-0.034) ng/mL NT-Pro-B Natriuret Pep (0-900) pg/mL Serum Total Protein (6.3-8.2) g/dL Albumin (3.5-5.0) g/dL SARS-CoV-2 (PCR) (NEGATIVE) 01/06/21 01/07/21 01/07/21 Range/Units 21:46 00:56 00:57 WBC 3.9 L (4.0-10.5) K/mm3 RBC 3.98 L (4.1-5.6) M/mm3 Hgb 12.8 (12.5-18.0) gm/dl Hct 38.9 L (42-50) % MCV 97.7 (78-100) fl MCH 32.2 H (26-32) pg MCHC 32.9 (32-36) g/dl RDW 14.5 H (11.5-14.0) % Plt Count 109 L (150-450) K/mm3 MPV 9.3 (7.5-11.0) fl Gran % (36.0-66.0) % Eos # (Auto) (0-0.5) Absolute Lymphs (auto) (1.0-4.6) Absolute Monos (auto) (0.0-1.3) Lymphocytes % (24.0-44.0) % Monocytes % (0.0-12.0) % Eosinophils % (0.00-5.0) % Basophils % (0.0-0.4) % Absolute Granulocytes (1.4-6.9) Basophils # (0-0.4) Sodium (137-145) mmol/L Potassium (3.5-5.1) mmol/L Chloride (98-107) mmol/L Carbon Dioxide (22-30) mmol/L Anion Gap (5-15) MEQ/L BUN (9-20) mg/dL Creatinine (0.66-1.25) mg/dL Estimated GFR ML/MIN Glucose (74-106) mg/dL POC Glucometer 203 H (74 to 106) mg/dL Hemoglobin A1c (4.5-6.0) % Lactic Acid (0.4-2.0) Calcium (8.4-10.2) mg/dL Total Bilirubin (0.2-1.3) mg/dL AST (17-59) U/L ALT (0-50) U/L Alkaline Phosphatase (38-126) U/L Troponin I < 0.012 (0.000-0.034) ng/mL NT-Pro-B Natriuret Pep (0-900) pg/mL Serum Total Protein (6.3-8.2) g/dL Albumin (3.5-5.0) g/dL SARS-CoV-2 (PCR) (NEGATIVE) 01/07/21 01/07/21 Range/Units 00:57 06:57 WBC (4.0-10.5) K/mm3 RBC (4.1-5.6) M/mm3 Hgb (12.5-18.0) gm/dl Hct (42-50) % MCV (78-100) fl MCH (26-32) pg MCHC (32-36) g/dl RDW (11.5-14.0) % Plt Count (150-450) K/mm3 MPV (7.5-11.0) fl Gran % (36.0-66.0) % Eos # (Auto) (0-0.5) Absolute Lymphs (auto) (1.0-4.6) Absolute Monos (auto) (0.0-1.3) Lymphocytes % (24.0-44.0) % Monocytes % (0.0-12.0) % Eosinophils % (0.00-5.0) % Basophils % (0.0-0.4) % Absolute Granulocytes (1.4-6.9) Basophils # (0-0.4) Sodium 134 L (137-145) mmol/L Potassium 4.3 (3.5-5.1) mmol/L Chloride 105 (98-107) mmol/L Carbon Dioxide 21 L (22-30) mmol/L Anion Gap 12.4 (5-15) MEQ/L BUN 15 (9-20) mg/dL Creatinine 1.11 (0.66-1.25) mg/dL Estimated GFR > 60.0 ML/MIN Glucose 167 H (74-106) mg/dL POC Glucometer 152 H (74 to 106) mg/dL Hemoglobin A1c (4.5-6.0) % Lactic Acid (0.4-2.0) Calcium 8.2 L (8.4-10.2) mg/dL Total Bilirubin 1.30 (0.2-1.3) mg/dL AST 33 (17-59) U/L ALT 45 (0-50) U/L Alkaline Phosphatase 66 (38-126) U/L Troponin I (0.000-0.034) ng/mL NT-Pro-B Natriuret Pep (0-900) pg/mL Serum Total Protein 5.3 L (6.3-8.2) g/dL Albumin 3.0 L (3.5-5.0) g/dL SARS-CoV-2 (PCR) (NEGATIVE) Micro Results-Entire Visit: Accuchecks Date 01/07/21 Date 01/06/21 Time 06:58 Time 22:00 - Radiology Exams Ordered Rad Exams-Entire Visit: Radiology Procedures Category Date Time Status CHEST 1 VIEW (PORTABLE) Stat Exams 01/06/21 12:29 Completed - Procedures and Test Procedures and Tests throughout Hospitalization: Therapy Orders & Screens 01/06/21 12:53 Respiratory Therapy Assessment DAILY Comment: 01/06/21 16:54 Oxygen Nasal Cannula 2 lpm Comment: Respiratory Therapy Consult ROUTINE Comment: Reason For Exam: 01/06/21 17:29 OT Screen per Nursing Assess ONCE Comment: Protocol Order Physician Instructions: Greater than 3 points order OT Admission Screening Reason For Exam: Triggered on Admission Diagnosis: pneumonia Open Wound/Cellutlitis/Pressure Ulcers: No Acute Fx/ORIF/Change in wt bearing status: No Severe MUSCULOSKELETAL pain: No ADL Dysfunction: Yes Acute CVA w/Hemiparesis/Hemiplegia: No Decreased Functional Mobility/Strength: Yes Sprain/Strain: No Acute Post-op Mobility Dysfunction: No Total Points: 4 PT Screen per Nursing Assess ONCE Comment: Protocol Order Physician Instructions: Greater than 3 points order PT Admission Screenin Reason For Exam: Triggered on Admission Diagnosis: pneumonia Open Wound/Cellutlitis/Pressure Ulcers: No Acute Fx/ORIF/Change in wt bearing status: No Severe MUSCULOSKELETAL pain: No ADL Dysfunction: Yes Acute CVA w/Hemiparesis/Hemiplegia: No Decreased Functional Mobility/Strength: Yes Sprain/Strain: No Acute Post-op Mobility Dysfunction: No Total Points: 4 RT Screen per Nursing Assess ONCE Comment: Protocol Order Physician Instructions: Greater than 3 points order RT Admission Screen Reason For Exam: Triggered on Admission Diagnosis: pneumonia Diagnosis: pneumonia Pneumonia: Yes Home O2: Yes Asthma: No CHF: No Home CPAP/BIPAP: No Home Nebs/MDI: Yes Total Points: 13 - Discharge Disposition: Home, Self-Care Condition: Stable Prescriptions: No Action Atenolol 12.5 mg PO DAILY Dronedarone Hydrochloride 400* [Multaq 400 MG] 400 mg PO BID Fluticasone/Vilanterol [Breo Ellipta 200-25 Mcg INH] 1 puff IH DAILY Finasteride 5 mg [Proscar 5 MG] 5 mg PO HS Albuterol Sulfate [Proair Respiclick] 2 puffs IH Q6H Cholecalciferol (Vitamin D3) [D3-2000] 2,000 unit PO HS PANTOPRAZOLE 40 mg Tablet [Protonix 40MG Tablet] 40 mg PO DAILY Aspirin EC 81 mg [Ecotrin 81 mg] 1 tab PO DAILY Allopurinol 100 mg [Zyloprim 100 mg] 100 mg PO DAILY Atorvastatin Calcium [Lipitor 40Mg] 40 mg PO HS Levothyroxine Sodium 75 Mcg [Synthroid 75 Mcg] 75 mcg PO DAILY Fluticasone Propionate [Flonase NASAL] 1 spray NS DAILY Gabapentin 300 mg [Neurontin 300 mg] 300 mg PO TID Albuterol/Ipratropium 3ml Neb* [DUONEB 0.5-3 MG/3 ml Neb] 1 neb IH Q6H PRN PRN PRN Reason: Shortness Of Breath Apixaban [Eliquis] 10 mg PO BID 7 Days #28 tab.ds.pk Guaifenesin [Mucinex] 1,200 mg PO BID 5 Days #10 tab.er.12h Pharmacy Dose Request: Gentami [Pharmacy Dosing Required: Gentamicin] 1 each IV STAT 7 Days #7 each Benzonatate [Tessalon Perle] 200 mg PO TID 5 Days #30 capsule Follow up with: KENAN VARGAS [Primary Care Provider] -
[2021-01-07] MEDS ORDERED: Zofran 4 MG/2 ML VIAL IV PRN (09:02)
[2021-01-07] MEDS ORDERED: PHARMACY DOSING REQUIRED: GENTAMICIN IV ONE (09:04)
[2021-01-07] MEDS: Tessalon Perles 100 MG PO SCH ×2 (09:14→15:42)
[2021-01-07] MEDS: ELIQUIS 2.5 MG TABLET PO SCH (09:15)
[2021-01-07] MEDS: Neurontin 100 MG PO SCH ×2 (09:16→15:43)
[2021-01-07] MEDS: Multaq 400 MG PO SCH (09:16)
[2021-01-07] MEDS: Pepcid 20 MG VIAL IV SCH (09:21)
[2021-01-07] MEDS ORDERED: GARAMYCIN IV SCH (10:00)
[2021-01-07] MEDS ORDERED: Protonix 40MG Tablet PO SCH (10:00)
[2021-01-07] MEDS ORDERED: ZYLOPRIM 100 MG PO SCH (10:00)
[2021-01-07] MEDS ORDERED: Flonase NASAL NS SCH ×2 (10:00)
[2021-01-07] MEDS ORDERED: SODIUM CHLORIDE 0.9% IV SCH (10:00)
[2021-01-07] MEDS ORDERED: ECOTRIN 81 MG PO SCH (10:00)
[2021-01-07] MEDS ORDERED: Mucinex 600MG ER Tabs PO SCH (10:00)
[2021-01-07] MEDS ORDERED: NON-FORMULARY ITEM (Fluticasone/Vilanterol [Breo Ellipta 200-25 Mcg Inh] 1 PUFF) IH SCH (10:00)
[2021-01-07] MEDS ORDERED: ATENOLOL 12.5 MG PO SCH (10:00)
[2021-01-07] MEDS ORDERED: TENORMIN 50 MG PO SCH (10:00)
[2021-01-07] MEDS ORDERED: GUAIFENESIN 1200 MG PO SCH (10:00)
--- NOTE | 2021-01-07 10:35 | XRAY ---
Indication: Abdomen pain and left chest/abdomen bruising. PE on CT chest January 02, 2021. Multiple contiguous axial images obtained through the abdomen and pelvis using 80 cc Isovue 370 contrast. Comparison: January 03, 2019. Lung bases again demonstrates bilateral dependent atelectasis and left posterior gutter calcified granuloma. There are now bilateral patchy rounded opacities, new since CT chest 5 days ago either organizing pneumonia versus rounded atelectasis. No large effusion. Heart is not enlarged. Abdomen/pelvic abdominal wall is negative for focal solid/cystic mass, fluid collection, or ventral hernias. Stable small fatty right inguinal hernia. Stomach is now moderately distended with food. Noncontrasted stomach and bowel loops remain nonobstructed. Stable minimal sigmoid diverticulosis, mild fatty liver, 13 cm splenomegaly, splenic calcified granulomas, and cholecystectomy. No free fluid/air. Remaining liver, pancreas, spleen, adrenal glands, kidneys, ureters, and bladder are unremarkable. Stable mild aortoiliac calcifications. No AAA or pathologic retroperitoneal lymphadenopathy. Osseous structures intact again with minimal degenerative changes throughout the thoracolumbar spine. Impression: 1. Bilateral lower lung rounded opacities new since CT chest 5 days ago either organizing pneumonia versus round atelectasis. 2. Negative abdominal wall mass, fluid collection, or ventral hernia. 3. Again incidental fatty right inguinal hernia, sigmoid diverticulosis, fatty liver, splenomegaly, and old granulomatous disease.
[2021-01-07 10:57] VITALS: O2SAT 96
[2021-01-07] MEDS ORDERED: Advair Hfa 115/21 Mcg Inhaler IH SCH (12:00)
[2021-01-07 16:16] VITALS: BP 133/62; PULSE 69
[2021-01-07] MEDS ORDERED: VITAMIN D PO SCH (22:00)
[2021-01-07] MEDS ORDERED: ZOCOR 20MG PO SCH (22:00)
[2021-01-07] MEDS ORDERED: NON-FORMULARY ITEM (Cholecalciferol (Vitamin D3) [D3-2000] 2,000 UNIT) PO SCH (22:00)
== END 2021-01-07 18:00 | disposition home or self-care (01) ==
LOC: ED 12:13 → MED SURG 16:50
PROVIDERS: ADMIT Family Medicine; ATTEND Family Medicine
DX: J15.1 Pneumonia due to Pseudomonas (principal); R11.10 Vomiting, unspecified; I26.99 Other pulmonary embolism without acute cor pulmonale; I10 Essential (primary) hypertension; E78.00 Pure hypercholesterolemia, unspecified; J44.9 Chronic obstructive pulmonary disease, unspecified; E03.9 Hypothyroidism, unspecified; Z85.118 Personal history of other malignant neoplasm of bronchus and lung; Z79.899 Other long term (current) drug therapy; E78.5 Hyperlipidemia, unspecified; Z79.01 Long term (current) use of anticoagulants; Z20.828 Contact with and (suspected) exposure to other viral communicable diseases; I25.10 Atherosclerotic heart disease of native coronary artery without angina pectoris
CPT/HCPCS: 36000; 36415; 71045; 74177; 80053; 82947; 83036; 83605; 83880; 84484; 85025; 85027; 93005; 94640; 94760; 94762; 96374; 99285; U0003; 93268; 96360; 96361; J1580; J1817; J2930; A9270-GY; G0378

== ENCOUNTER 2021-02-12 09:09 | Observation (INO) | payer MEDICARE ==
[2021-02-12] MEDS ORDERED: Lactated Ringers 500 ML IV ONE (09:30)
[2021-02-12 10:09] LABS: Hemoglobin 13.2 gm/dl (12.5-18.0); Mean Cell Volume 99.8 fl (78-100); Mean Corpuscular Hemoglobin 32.9 pg (26-32); Mean Platelet Volume 9.5 fl (7.5-11.0); Platelet Count 201 K/mm3 (150-450); Red Blood Count 4.01 M/mm3 (4.1-5.6); Red Cell Distribution Width 14.8 % (11.5-14.0); White Blood Count 7.8 K/mm3 (4.0-10.5)
[2021-02-12 10:21] LABS: ALBUMIN 4.1 g/dL (3.5-5.0); ANION GAP 14.5 MEQ/L (5-15); BILIRUBIN,TOTAL 1.5 mg/dL (0.2-1.3); Creatinine 1 1.49 mg/dL (0.66-1.25); EST GLOMERULAR FILTRATION RATE 49.1 ML/MIN; Potassium 4.1 mmol/L (3.5-5.1); Total Protein 6.7 g/dL (6.3-8.2)
--- NOTE | 2021-02-12 11:33 | XRAY ---
Indication: Frequent falls. Acute renal failure. Coronary artery disease. Hypertension. Comparison: January 21, 2021. Portable apical lordotic chest less inflated with now multiple overlying monitoring leads and electronic device. Stable minimal lingula subsegmental atelectasis/scarring and a few tiny calcified granulomas. Remaining heart, lungs, and bony thorax unremarkable. Impression: Nonacute chest with chronic features.
[2021-02-12] MEDS: Lactated Ringers 1,000 ML IV SCH ×2 (11:58→22:02)
[2021-02-12 13:08] LABS: Appearance CLEAR (CLEAR); Bilirubin NEGATIVE (NEGATIVE); Blood NEGATIVE Ery/ul (0-5); Glucose NEGATIVE (NEGATIVE); Ketones NEGATIVE (NEGATIVE); Leukocyte Esterase NEGATIVE (NEGATIVE); Mucus SLIGHT /HPF (NEGATIVE); Nitrite NEGATIVE (NEGATIVE); Protein,Urine Dip NEGATIVE (Negative); Specific Gravity 1.013 (1.005-1.025); Urobilinogen NEGATIVE mg/dL (0-1)
[2021-02-12] MEDS: NEURONTIN 300 MG PO SCH ×2 (14:22→22:02)
[2021-02-12] MEDS ORDERED: LIPITOR 40MG ONE (21:51)
[2021-02-12] MEDS ORDERED: NON-FORMULARY ITEM (Cholecalciferol (Vitamin D3) [D3-2000] 2,000 UNIT) PO SCH (22:00)
[2021-02-12] MEDS ORDERED: NON-FORMULARY ITEM (Apixaban [Eliquis] 5 MG) PO SCH (22:00)
[2021-02-12] MEDS ORDERED: LIPITOR 40MG PO SCH (22:00)
[2021-02-12] MEDS: Multaq 400 MG PO SCH (22:02)
[2021-02-12] MEDS: LIPITOR 40MG PO SCH (22:02)
[2021-02-12] MEDS: ELIQUIS 2.5 MG TABLET PO SCH (22:02)
[2021-02-13 05:12] LABS: Hematocrit 36.8 % (42-50); Hemoglobin 12.1 gm/dl (12.5-18.0); Mean Cell Volume 99.2 fl (78-100); Mean Corpuscular Hemoglobin 32.6 pg (26-32); Mean Corpuscular Hgb Concent. 32.9 g/dl (32-36); Mean Platelet Volume 9.4 fl (7.5-11.0); Platelet Count 159 K/mm3 (150-450); Red Blood Count 3.71 M/mm3 (4.1-5.6); Red Cell Distribution Width 14.7 % (11.5-14.0)
[2021-02-13 06:02] LABS: ALBUMIN 3.2 g/dL (3.5-5.0); ANION GAP 11.5 MEQ/L (5-15); BILIRUBIN,TOTAL 0.9 mg/dL (0.2-1.3); Calcium 8.6 mg/dL (8.4-10.2); Creatinine 1 1.35 mg/dL (0.66-1.25); EST GLOMERULAR FILTRATION RATE 55.1 ML/MIN; Total Protein 5.5 g/dL (6.3-8.2)
[2021-02-13] MEDS ORDERED: Spiriva 18 Mcg/Cap Inhaler IH ONE (06:54)
[2021-02-13] MEDS: Spiriva 18 Mcg/Cap Inhaler IH SCH (06:56)
[2021-02-13] MEDS ORDERED: VENTOLIN COMMON CANISTER IH PRN (06:59)
[2021-02-13] MEDS: Lactated Ringers 1,000 ML IV SCH ×2 (08:11→17:56)
[2021-02-13] MEDS: ECOTRIN 81 MG PO SCH (08:13)
[2021-02-13] MEDS ORDERED: Sodium Chloride 0.9% 10 ML FLUSH Syringe IV PRN (09:04)
[2021-02-13] MEDS: NEURONTIN 300 MG PO SCH ×3 (09:52→21:41)
[2021-02-13] MEDS: SYNTHROID 75 MCG PO SCH (09:53)
[2021-02-13] MEDS: Multaq 400 MG PO SCH ×2 (09:53→21:42)
[2021-02-13] MEDS: ELIQUIS 2.5 MG TABLET PO SCH ×2 (09:54→21:41)
[2021-02-13] MEDS ORDERED: TENORMIN 50 MG PO SCH (10:00)
[2021-02-13] MEDS ORDERED: NON-FORMULARY ITEM (Fluticasone/Vilanterol [Breo Ellipta 200-25 Mcg Inh] 1 PUFF) IH SCH (10:00)
[2021-02-13] MEDS ORDERED: ATENOLOL 12.5 MG PO SCH (10:00)
[2021-02-13] MEDS: PATIENT OWN MEDICATION IH SCH (20:23)
--- NOTE | 2021-02-13 21:22 | PCM.HP ---
History of Present Illness - Chief Complaint Chief Complaint: Acute renal failure History of Present Illness: is a 71 year old male pt of mine from [facility] who was directly admitted with acute on chronic renal failure. He had had an office visit for frequent falls and his labs showed a decreased eGFR over baseline. Last night he was noted to have HR in the 40s and his Multaq was held. This morning his atenolol was held. His HR remained in the 50s off and on throughout the day. He has had no further falls; PT assessed him and he did not meet parameters to go on their service. He did complain today that his L eye felt like there was "something in it." - Review of Systems Ears, Nose, & Throat: Other (FB sensation, eye) Musculoskeletal: Fall Neurological: Dizziness All Other Systems: Reviewed and Negative Medications & Allergies Home Medications: Home Medication List Atenolol 12.5 mg PO DAILY 08/02/16 [History Confirmed 02/12/21] Dronedarone Hydrochloride 400* [Multaq 400 MG] 400 mg PO BID 09/29/16 [History Confirmed 02/12/21] Fluticasone/Vilanterol [Breo Ellipta 200-25 Mcg INH] 1 puff IH DAILY 03/10/17 [History Confirmed 02/12/21] Cholecalciferol (Vitamin D3) [D3-2000] 2,000 unit PO HS 11/25/18 [History Confirmed 02/12/21] Aspirin EC 81 mg [Ecotrin 81 mg] 1 tab PO DAILY 04/15/19 [History Confirmed 02/12/21] Atorvastatin Calcium [Lipitor 40Mg] 40 mg PO HS 12/18/20 [History Confirmed 02/12/21] Gabapentin 300 mg [Neurontin 300 mg] 300 mg PO TID 12/18/20 [History Confirmed 02/12/21] Levothyroxine Sodium 75 Mcg [Synthroid 75 Mcg] 75 mcg PO DAILY 12/18/20 [History Confirmed 02/12/21] Apixaban [Eliquis] 5 mg PO BID 02/12/21 [History Confirmed 02/12/21] Tiotropium [place] Inhaler [Spiriva 18 Mcg/Cap Inhaler] 1 inh NEB DAILY 02/12/21 [History Confirmed 02/12/21] Allergies/Adverse Reactions: Allergies Allergy/AdvReac Type Severity Reaction Status Date / Time levofloxacin Allergy Intermediate Hives Verified 01/06/21 17:29 - Past Medical History Past Medical History: Yes Neurological History: No Pertinent History ENT History: No Pertinent History Cardiac History: Coronary Artery Disease, High Cholesterol, Hypertension Respiratory History: COPD, Pneumonia Endocrine Medical History: Hypothyroidism Musculoskelatal History: Osteoarthritis GI Medical History: No Pertinent History History: Renal Disease Pyscho-Social History: No Pertinent History Male Reproductive Disorders: Prostate Problems Comment: SX HX: CHOLECYSTECTOMY, CARDIAC STENTS X 3 - Past Surgical History Past Surgical History: Yes Neuro Surgical History: No Pertinent History Cardiac History: Cardiac Catheterization, Cardiac Stent Respiratory Surgery: No Pertinent History GI Surgical History: Cholecystectomy Genitourinary Surgical Hx: No Pertinent History Musculskeletal Surgical Hx: Other Male Surgical History: Other Other Surgical History: Mediastinoscopy and " urologic procedure." - Social History Smoking Status: Never smoker Exposure to second hand smoke: No Alcohol: None Drug Use: none Significant Family History: no pertinent family hx - Physical Exam Vital Signs: Vital Signs - 24 hr Temp Pulse Resp BP Pulse Ox 02/13/21 20:23 59 L 19 94 L 02/13/21 19:29 98.0 F 67 16 131/61 93 L 02/13/21 17:00 97.7 F 58 L 28 H 127/65 95 02/13/21 11:54 97.7 F 69 20 125/64 97 02/13/21 08:03 97.7 F 66 20 141/70 96 02/13/21 06:58 62 18 94 L 02/13/21 05:10 46 L 02/13/21 04:13 98.2 F 64 18 119/64 95 02/13/21 02:04 48 L 02/12/21 23:37 98.0 F 63 18 119/58 95 General Appearance: no apparent distress, alert Neurologic Exam: oriented x 3, cooperative Eye Exam: other (L eyelids appear mildly erythematous; no conjunctival injection, no exudate. PERRL. On fluorescein exam, no foreign bodies or corneal defects noted.) Ears, Nose, Throat Exam: moist mucous membranes Neck Exam: normal inspection, non-tender, No lymphadenopathy Respiratory Exam: normal breath sounds, lungs clear, No crackles/rales, No rho nchi, No wheezing Cardiovascular Exam: regular rate/rhythm, normal heart sounds, No murmur Gastrointestinal/Abdomen Exam: soft, normal bowel sounds, No tenderness, No distention, No mass, No guarding, No rebound Back Exam: normal inspection, No rash Extremity Exam: normal inspection, No pedal edema, No swelling Skin Exam: normal color, warm, dry, No rash Results - Labs Lab/Micro Results: Lab Results-Last 24 Hours 02/13/21 02/13/21 Range/Units 04:48 04:48 WBC 6.0 (4.0-10.5) K/mm3 RBC 3.71 L (4.1-5.6) M/mm3 Hgb 12.1 L (12.5-18.0) gm/dl Hct 36.8 L (42-50) % MCV 99.2 (78-100) fl MCH 32.6 H (26-32) pg MCHC 32.9 (32-36) g/dl RDW 14.7 H (11.5-14.0) % Plt Count 159 (150-450) K/mm3 MPV 9.4 (7.5-11.0) fl Sodium 137 (137-145) mmol/L Potassium 4.0 (3.5-5.1) mmol/L Chloride 107 (98-107) mmol/L Carbon Dioxide 22 (22-30) mmol/L Anion Gap 11.5 (5-15) MEQ/L BUN 19 (9-20) mg/dL Creatinine 1.35 H (0.66-1.25) mg/dL Estimated GFR 55.1 ML/MIN Glucose 111 H (74-106) mg/dL Calcium 8.6 (8.4-10.2) mg/dL Total Bilirubin 0.90 (0.2-1.3) mg/dL AST 21 (17-59) U/L ALT 16 (0-50) U/L Alkaline Phosphatase 57 (38-126) U/L Serum Total Protein 5.5 L (6.3-8.2) g/dL Albumin 3.2 L (3.5-5.0) g/dL - Radiology Impressions Radiology Exams & Impressions: Radiology Procedures Category Date Time Status CHEST 1 VIEW (PORTABLE) Routine Exams 02/12/21 10:00 Completed - Other Procedures and Tests Respiratory Therapy 07/20/21 22:00 Respiratory MDI DAILY Assessment/Plan (1) Bradycardia Current Visit: Yes Status: Acute Assessment & Plan: If discontinuing the atenalol and multaq does not improve his heart rate, would consult his interventional radiology rn (Dr. Poe). Code(s): R00.1 - BRADYCARDIA, UNSPECIFIED (2) Acute on chronic renal failure Current Visit: Yes Status: Acute Qualifiers: Chronic kidney disease stage: stage 3 (moderate) Assessment & Plan: Pt seen this morning and at 1730 (for eye exam). Improved. Recheck labs tomorrow. Code(s): N17.9 - ACUTE KIDNEY FAILURE, UNSPECIFIED; N18.9 - CHRONIC KIDNEY DISEASE, UNSPECIFIED (3) Falls Current Visit: Yes Status: Acute Qualifiers: Encounter type: subsequent encounter Qualified Code(s): W19.XXXD - Unspeci fied fall, subsequent encounter Assessment & Plan: I think due to the bradycardia. Code(s): W19.XXXA - UNSPECIFIED FALL, INITIAL ENCOUNTER (4) Sensation of foreign body in eye Current Visit: Yes Status: Acute Assessment & Plan: he is to get NS drops in eyes q4h. Code(s): H57.9 - UNSPECIFIED DISORDER OF EYE AND ADNEXA
[2021-02-13] MEDS: LIPITOR 40MG PO SCH (21:41)
[2021-02-14] MEDS: PATIENT OWN MEDICATION IH SCH (01:31)
[2021-02-14] MEDS: Lactated Ringers 1,000 ML IV SCH (03:17)
[2021-02-14] MEDS: Spiriva 18 Mcg/Cap Inhaler IH SCH (06:36)
[2021-02-14 07:31] VITALS: BP 151/72; PULSE 58; O2SAT 97
[2021-02-14] MEDS: ECOTRIN 81 MG PO SCH (08:15)
--- NOTE | 2021-02-14 08:50 | PCM.DS ---
Discharge Summary Date of Admission: 02/12/21 09:45 Admitting Physician: KENAN VARGAS Primary Care Provider: KENAN VARGAS Allergies Allergies levofloxacin Allergy (Intermediate, Verified 01/06/21 17:29) [facility] Summary - Hospital Course Hospital Course: patient was admitted with recurrent falls and bradycardia, symptoms and bradycardia have resolved with stopping atenolol. he feels well today, states he is steady on his feet and requesting to discharge home, he lives with his . he sees Dr Mejia for cardiology care - Vitals & Intake/Output Vital Signs: Vital Signs Temperature 97.5 F 02/14/21 07:00 Pulse Rate 58 L 02/14/21 07:00 Respiratory Rate 18 02/14/21 07:00 Blood Pressure 151/72 02/14/21 07:00 O2 Sat by Pulse Oximetry 97 02/14/21 07:00 Intake & Output: Intake & Output 02/11/21 02/12/21 02/13/21 02/14/21 11:59 11:59 11:59 11:59 Intake Total 2936 2683 Output Total 1400 1600 Balance 1536 1083 Weight 87.8 kg - Lab Result Diagrams: 02/13/21 04:48 02/13/21 04:48 - Radiology Exams Ordered Rad Exams-Entire Visit: Radiology Procedures Category Date Time Status CHEST 1 VIEW (PORTABLE) Routine Exams 02/12/21 10:00 Completed - Procedures and Test Procedures and Tests throughout Hospitalization: Therapy Orders & Screens 02/12/21 10:00 OT Eval and Treat (MD Order) ROUTINE Comment: Consulting Provider: Physician Instructions: Reason For Exam: frequent falls,htn,cad,ac renal failure Evaluate: Yes Treat: Yes Reason for Evaluation: frequentr falls Diagnosis: frequent falls,cad,htn.ac renal failure PT Eval & Treat (MD Order) ONCE Reason for Eval:: Frequent Falls Diagnosis: ACRF,HTN,CAD,Frequent Falls 02/12/21 13:57 Respiratory Therapy Assessment DAILY Comment: Diagnosis: Acute renal failure 02/12/21 13:58 Oxygen Nasal Cannula 2 lpm Comment: PRN HS Diagnosis: Acute renal failure 02/12/21 17:44 OT Clarification Order ONCE Comment: Physician Instructions: Reason For Exam: OT Clarification: Occupational Therapy Evaluation completed 02/12/21. No further skilled OT services deemed medically necessary at this time. Will continue to c oordinate with IDT should this change during patient's stay. 02/12/21 22:00 Respiratory MDI DAILY Comment: BREO DAILY AT HS Diagnosis: Acute renal failure Discharge Exam General Appearance: no apparent distress, alert Neurologic Exam: alert, oriented x 3 Respiratory Exam: normal breath sounds, lungs clear, No respiratory distress Cardiovascular Exam: regular rate/rhythm, normal heart sounds Gastrointestinal/Abdomen Exam: soft, No tenderness, No mass Extremity Exam: normal inspection, normal range of motion Skin Exam: normal color, warm, dry Final Diagnosis/Problem List - Final Discharge Diagnosis/Problem (1) Acute on chronic renal failure Current Visit: Yes Status: Acute Assessment & Plan: improved with hydration, doing well Code(s): N17.9 - ACUTE KIDNEY FAILURE, UNSPECIFIED; N18.9 - CHRONIC KIDNEY DISEASE, UNSPECIFIED (2) Bradycardia Current Visit: Yes Status: Acute Assessment & Plan: resolved with holding atenolol, advised to f/u with Dr Mejia and discontinue atenolol at home Code(s): R00.1 - BRADYCARDIA, UNSPECIFIED (3) Falls Current Visit: Yes Status: Acute Assessment & Plan: referred for C per co coordinator Code(s): W19.XXXA - UNSPECIFIED FALL, INITIAL ENCOUNTER - Discharge Disposition: Home, Self-Care Condition: Stable Prescriptions: Continue Dronedarone Hydrochloride 400* [Multaq 400 MG] 400 mg PO BID Fluticasone/Vilanterol [Breo Ellipta 200-25 Mcg INH] 1 puff IH DAILY Cholecalciferol (Vitamin D3) [D3-2000] 2,000 unit PO HS Aspirin EC 81 mg [Ecotrin 81 mg] 1 tab PO DAILY Atorvastatin Calcium [Lipitor 40Mg] 40 mg PO HS Levothyroxine Sodium 75 Mcg [Synthroid 75 Mcg] 75 mcg PO DAILY Gabapentin 300 mg [Neurontin 300 mg] 300 mg PO TID Tiotropium [place] Inhaler [Spiriva 18 Mcg/Cap Inhaler] 1 inh NEB DAILY Apixaban [Eliquis] 5 mg PO BID Discontinued Atenolol 12.5 mg PO DAILY Follow up with: KENAN VARGAS [Primary Care Provider] - 1 Week ALLISON MEJIA [CONSULTING PHYSICIAN] - 1 Week
[2021-02-14] MEDS: NEURONTIN 300 MG PO SCH (10:07)
[2021-02-14] MEDS: SYNTHROID 75 MCG PO SCH (10:07)
[2021-02-14] MEDS: Multaq 400 MG PO SCH (10:07)
[2021-02-14] MEDS: ELIQUIS 2.5 MG TABLET PO SCH (10:07)
== END 2021-02-14 10:45 | disposition home health service (06) ==
LOC: MED SURG 09:45
PROVIDERS: ADMIT Family Medicine; ATTEND Family Medicine
DX: I13.10 Hypertensive heart and chronic kidney disease without heart failure, with stage 1 through stage 4 chronic kidney disease, or unspecified chronic kidney disease (principal); N17.9 Acute kidney failure, unspecified; N18.9 Chronic kidney disease, unspecified; I25.10 Atherosclerotic heart disease of native coronary artery without angina pectoris; R42 Dizziness and giddiness; Z79.01 Long term (current) use of anticoagulants; R00.1 Bradycardia, unspecified; W19.XXXA Unspecified fall, initial encounter; Z79.899 Other long term (current) drug therapy; H57.9 Unspecified disorder of eye and adnexa; Z20.828 Contact with and (suspected) exposure to other viral communicable diseases; E78.00 Pure hypercholesterolemia, unspecified
CPT/HCPCS: 36415; 71045; 80053; 81001; 85027; 94640; 94760; 94762; 97161; 97165; G0378; U0003; A9270-GY

== ENCOUNTER 2021-03-12 18:24 | Emergency (ER) | payer MEDICARE ==
[2021-03-12] MEDS ORDERED: ARZOL Silver Nitrate Applicator TP ONE (18:37)
--- NOTE | 2021-03-12 19:01 | ERPHSYRPT ---
- History of Present Illness Source: patient, other () Exam Limitations: no limitations Patient Subjective Stated Complaint: " I had cancerous areas of skin removed from my face today and this one started bleeding and I can't get it to stop. It has been bleeding for a little over an hour". Triage Nursing Assessment: Pt presents to ER with complaints of post op bleeding to area on face. Pt had some cancerous areas of skin removed this afternoon and stated forgot to stop taking blood thinner. He states bleeding started about an hour ago and that he couldn't get bleeding to stop. Noted site of bleeding is on right side of forehead. Pt has other spots on face where cancer was removed noted to be on left sided forehead and nose. Pt only is experiencing oozing bleeding from wound on right side foreehead. Bleeding is noted to be dark red and oozing in nature. Pt is alert and oriented x 3. Respirations unlabored and easy. Skin pink, warm, and dry. Denies any further complaints at this time. Physician History: Pt had lesion removed off face earlier today in [place], and bleeding started before ER presentation. Pt is on Eliquis, and it was not stopped before procedure. Timing/Duration: today Quality: other (No pain) Severity: mild Location: other (R glabella) Possible Causes: other (Surgical complication) Associated Symptoms: denies symptoms Allergies/Adverse Reactions: levofloxacin Allergy (Intermediate, Verified 03/12/21 18:47) Hives Home Medications: Fluticasone/Vilanterol [Breo Ellipta 200-25 Mcg INH] 1 puff IH DAILY 03/10/17 [History] Cholecalciferol (Vitamin D3) [D3-2000] 2,000 unit PO HS 11/25/18 [History] Aspirin EC 81 mg [Ecotrin 81 mg] 1 tab PO DAILY 04/15/19 [History] Gabapentin 300 mg [Neurontin 300 mg] 300 mg PO TID 12/18/20 [History] Levothyroxine Sodium 75 Mcg [Synthroid 75 Mcg] 75 mcg PO DAILY 12/18/20 [History] Apixaban [Eliquis] 5 mg PO BID 02/12/21 [History] Tiotropium [place] Inhaler [Spiriva 18 Mcg/Cap Inhaler] 1 inh NEB DAILY 02/12/21 [History] Hx Tetanus, Diphtheria Vaccination/Date Given: Yes Hx Influenza Vaccination/Date Given: Yes Hx Pneumococcal Vaccination/Date Given: Yes Immunizations Up to Date: Yes Travel Risk - International Travel Have you traveled outside of the country in past 3 weeks: No - Coronavirus Screening Are you exhibiting any of the following symptoms?: No Close contact with a COVID-19 positive Pt in past 14-21 Days: No - Vaccine Status Have you recieved a Covid-19 vaccination: No - Review of Systems Constitutional: No Symptoms Eyes: No Symptoms Ears, Nose, & Throat: No Symptoms Respiratory: No Symptoms Cardiac: No Symptoms Abdominal/Gastrointestinal: No Symptoms Genitourinary Symptoms: No Symptoms Musculoskeletal: No Symptoms Neurological: No Symptoms Psychological: No Symptoms Endocrine: No Symptoms Hematologic/Lymphatic: No Symptoms Immunological/Allergic: Pollen Allergy - Past Medical History Pertinent Past Medical History: Yes Neurological History: No Pertinent History ENT History: No Pertinent History Cardiac History: Coronary Artery Disease, High Cholesterol, Hypertension Respiratory History: COPD, Pneumonia Endocrine Medical History: Hypothyroidism Musculoskeletal History: Osteoarthritis GI Medical History: No Pertinent History History: Renal Disease Psycho-Social History: No Pertinent History Male Reproductive Disorders: Prostate Problems Other Medical History: SX HX: CHOLECYSTECTOMY, CARDIAC STENTS X 3 - Past Surgical History Past Surgical History: Yes Neuro Surgical History: No Pertinent History Cardiac: Cardiac Catheterization, Cardiac Stent Respiratory: No Pertinent History Gastrointestinal: Cholecystectomy Genitourinary: No Pertinent History Musculoskeletal: Other Male Surgical History: Other Other Surgical History: Mediastinoscopy and " urologic procedure." 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 - Social History Smoking Status: Never smoker Exposure to second hand smoke: No Alcohol Use: None Drug Use: none Patient Lives Alone: No Significant Family History: no pertinent family hx - Nursing Vital Signs Nursing Vital Signs: Initial Vital Signs Temperature 97.3 F 03/12/21 18:40 Pulse Rate 78 03/12/21 18:40 Respiratory Rate 16 03/12/21 18:40 Blood Pressure 155/85 03/12/21 18:40 O2 Sat by Pulse Oximetry 93 L 03/12/21 18:40 Pain Scale Pain Intensity 4 Hypertensive/Sats borderline - Physical Exam General Appearance: no apparent distress Eye Exam: PERRL/EOMI Ears, Nose, Throat Exam: normal ENT inspection Neck Exam: normal inspection Respiratory Exam: normal breath sounds, lungs clear Cardiovascular Exam: regular rate/rhythm, normal heart sounds, No murmur Gastrointestinal/Abdomen Exam: soft, normal bowel sounds, No tenderness Back Exam: normal inspection Extremity Exam: normal inspection Neurologic Exam: alert, oriented x 3, cooperative, senior tax analyst II-XII nml as tested, normal mood/affect Skin Exam: other (Bleeding from R glabelar surgical site) SpO2 Interpretation: borderline oxygenation SpO2: 93 O2 Delivery: Room Air - Course Nursing assessment & vital signs reviewed: Yes Ordered Tests: Medication Summary Discontinued Medications Generic Name Dose Route Start Last Admin Trade Name Freq PRN Reason Stop Dose Admin Silver Nitrate Confirm 03/12/21 18:37 Arzol Silver Nitrate Applicator Administered 03/12/21 18:38 Dose 1 pkt TP .STK-MED ONE - Progress Progress: improved Progress Note: 03/12/21 19:02 Bleeding stopped w 1 AgNO3 stick/No comps Counseled pt/family regarding: need for follow-up - Departure Departure Disposition: Home Clinical Impression: Post-op bleeding Condition: Stable Critical Care Time: No Referrals: KENAN VARGAS [Primary Care Provider] - Instructions: Bleeding After Surgery Additional Instructions: If bleeding restarts, hold pressure for 30minutes before coming to ER. Do not rub lesion or wash lesion for 24 hours
[2021-03-12 19:12] VITALS: BP 125/85; PULSE 71
[2021-03-12 23:41] VITALS: O2SAT 93
== END 2021-03-12 19:12 | disposition home or self-care (01) ==
LOC: ED 18:24
DX: L76.22 Postprocedural hemorrhage of skin and subcutaneous tissue following other procedure (principal); C44.309 Unspecified malignant neoplasm of skin of other parts of face; Z79.01 Long term (current) use of anticoagulants
CPT/HCPCS: 99282; A9270-GY

== ENCOUNTER 2021-07-31 12:54 | Emergency (ER) | payer MEDICARE ==
--- NOTE | 2021-07-31 13:02 | ERPHSYRPT ---
- History of Present Illness Time Seen by Provider: 07/31/21 13:02 Source: patient Exam Limitations: no limitations Physician History: This is a 71-year-old right-handed male who was using a pry bar when it slipped and injured his right hand dorsal aspect. Patient is on anticoagulation therapy and the bruising and swelling had made him concerned that there may be a broken bone. Occurred: days ago (3) Method of Injury: other (Pry bar slipped) Quality: constant, aching Severity of Pain-Max: mild Severity of Pain-Current: mild Extremities Pain Location: hand: right (Dorsal aspect) Modifying Factors: Improves With: movement Associated Symptoms: none Allergies/Adverse Reactions: levofloxacin Allergy (Intermediate, Verified 07/31/21 13:25) Hives Home Medications: Fluticasone/Vilanterol [Breo Ellipta 200-25 Mcg INH] 1 puff IH DAILY 03/10/17 [History] Cholecalciferol (Vitamin D3) [D3-2000] 2,000 unit PO HS 11/25/18 [History] Aspirin EC 81 mg [Ecotrin 81 mg] 1 tab PO DAILY 04/15/19 [History] Gabapentin 300 mg [Neurontin 300 mg] 300 mg PO TID 12/18/20 [History] Levothyroxine Sodium 75 Mcg [Synthroid 75 Mcg] 75 mcg PO DAILY 12/18/20 [History] Apixaban [Eliquis] 5 mg PO BID 02/12/21 [History] Tiotropium [place] Inhaler [Spiriva 18 Mcg/Cap Inhaler] 1 inh NEB DAILY 02/12/21 [History] Amiodarone HCl [Pacerone] 200 mg PO DAILY 07/31/21 [History] Fluticasone/Vilanterol [Breo Ellipta 200-25 Mcg INH] 1 inh INTRANASAL DAILY 07/31/21 [History] Hx Tetanus, Diphtheria Vaccination/Date Given: Yes Hx Influenza Vaccination/Date Given: Yes Hx Pneumococcal Vaccination/Date Given: Yes Travel Risk - International Travel Have you traveled outside of the country in past 3 weeks: No - Coronavirus Screening Are you exhibiting any of the following symptoms?: No Close contact with a COVID-19 positive Pt in past 14-21 Days: No - Vaccine Status Have you recieved a Covid-19 vaccination: No - Review of Systems Constitutional: No Symptoms Eyes: No Symptoms Ears, Nose, & Throat: No Symptoms Respiratory: No Symptoms Cardiac: No Symptoms Abdominal/Gastrointestinal: No Symptoms Genitourinary Symptoms: No Symptoms Musculoskeletal: Injury (Right hand) Skin: No Symptoms Neurological: No Symptoms Psychological: No Symptoms Endocrine: No Symptoms Hematologic/Lymphatic: No Symptoms Immunological/Allergic: No Symptoms All Other Systems: Reviewed and Negative - Past Medical History Pertinent Past Medical History: Yes Neurological History: No Pertinent History ENT History: No Pertinent History Cardiac History: Coronary Artery Disease, High Cholesterol, Hypertension Respiratory History: COPD, Pneumonia Endocrine Medical History: Hypothyroidism Musculoskeletal History: Osteoarthritis GI Medical History: No Pertinent History History: Renal Disease Psycho-Social History: No Pertinent History Male Reproductive Disorders: Prostate Problems Other Medical History: SX HX: CHOLECYSTECTOMY, CARDIAC STENTS X 3 - Past Surgical History Past Surgical History: Yes Neuro Surgical History: No Pertinent History Cardiac: Cardiac Catheterization, Cardiac Stent Respiratory: No Pertinent History Gastrointestinal: Cholecystectomy Genitourinary: No Pertinent History Musculoskeletal: Other Male Surgical History: Other Other Surgical History: Mediastinoscopy and " urologic procedure." 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 - Social History Smoking Status: Never smoker Exposure to second hand smoke: No Alcohol Use: None Drug Use: none Patient Lives Alone: No Significant Family History: no pertinent family hx - Nursing Vital Signs Nursing Vital Signs: Initial Vital Signs Temperature 98.2 F 07/31/21 13:20 Pulse Rate 72 07/31/21 13:20 Respiratory Rate 18 07/31/21 13:20 Blood Pressure 148/70 07/31/21 13:20 O2 Sat by Pulse Oximetry 94 L 07/31/21 13:20 Pain Scale Pain Intensity 6 - Physical Exam General Appearance: no apparent distress, alert Eyes, Ears, Nose, Throat Exam: normal ENT inspection, moist mucous membranes Neck Exam: normal inspection, non-tender, supple, full range of motion Cardiovascular/Respiratory Exam: chest non-tender, no respiratory distress Abdominal Exam: non-tender Back Exam: normal inspection, normal range of motion, No CVA tenderness, No vertebral tenderness Shoulder Exam: normal inspection, non-tender, no evidence of injury, normal ROM Elbow/Forearm Exam: normal inspection, non-tender, no evidence of injury, normal ROM Wrist Exam: normal inspection, non-tender, no evidence of injury, normal ROM Hand Exam: normal ROM, ecchymosis (Dorsal aspect primarily in the area of the second metatarsal), soft tissue tenderness, swelling Neuro/Tendon Exam: normal sensation, normal motor functions, normal tendon functions, responds to pain, no evidence tendon injury Mental Status Exam: alert, oriented x 3, cooperative Skin Exam: ecchymosis (See above) SpO2 Interpretation: borderline oxygenation O2 Delivery: Room Air - Course Nursing assessment & vital signs reviewed: Yes Ordered Tests: Active Orders 24 hr Category Date Time Status HAND (MINIMUM 3 VIEWS) Stat Exams 07/31/21 13:15 Completed - Progress Progress Note: 07/31/21 14:07 Right hand x-ray shows no acute fracture or dislocation. Counseled pt/family regarding: lab results, diagnosis, need for follow-up, rad results - Departure Departure Disposition: Home Clinical Impression: Contusion of right hand Condition: Stable Critical Care Time: No Referrals: KENAN MONTILLA [Primary Care Provider] - Follow up/PCP as directed Additional Instructions: Ice pack to area 3 times a day for the next 48 hours. Use Tylenol for pain control. Follow-up with your primary care physician for persistent symptoms.
--- NOTE | 2021-07-31 13:40 | XRAY ---
Indication: Metacarpal injury. Comparison: None 3 view right hand demonstrates mild osteopenia, old 2nd metacarpal head fracture, and moderate scattered vascular calcifications. No other bony, articular, or soft tissue abnormalities.
[2021-07-31 14:35] VITALS: BP 140/85; PULSE 68; O2SAT 96
== END 2021-07-31 14:35 | disposition home or self-care (01) ==
LOC: ED 12:54
DX: S60.221A Contusion of right hand, initial encounter (principal); W22.8XXA Striking against or struck by other objects, initial encounter; I10 Essential (primary) hypertension; E78.5 Hyperlipidemia, unspecified; I25.10 Atherosclerotic heart disease of native coronary artery without angina pectoris; Z79.01 Long term (current) use of anticoagulants; Z79.899 Other long term (current) drug therapy
CPT/HCPCS: 73130; 99283

== ENCOUNTER 2021-12-17 07:16 | Emergency (ER) | payer MEDICARE ==
[2021-12-17 07:28] VITALS: BP 138/72; PULSE 67; O2SAT 94
[2021-12-17] MEDS ORDERED: Adacel Vial IM ONE ×2 (07:45→07:50)
--- NOTE | 2021-12-17 07:46 | ERPHSYRPT ---
- History of Present Illness Time Seen by Provider: 12/17/21 07:30 Source: fish cutter Exam Limitations: no limitations Patient Subjective Stated Complaint: Pt states "I cut my hand on metal last night and I am on blood thinners and it was bleeding pretty good this morning." Triage Nursing Assessment: Pt presented alert and oriented X 3, skin wpd Pt ambulates with an upright steady gait, able to speak in clear full sentences pt has approx 2 cm skin tear noted to his left index finger Physician History: Patient is a 71-year-old male presents to emergency department for evaluation and treatment of a skin tear. Patient states he was dismantling a washer when he injured his left index finger. The skin tear is located at the radial aspect of the left second MCP joint. Injury occurred last night. Patient is on El iquis. Patient states the wound continued to ooze and became concerned to came to our ED for an evaluation. Patient is on Eliquis for cardiac stents. Patient has no cardiac symptomology or concerns. No chest pain or shortness of breath. No nausea vomiting or diaphoresis. Patient declined pain medication. Patient advises that his tetanus is not up-to-date at this point. Patient otherwise fe els well. He voices no other complaints or concerns at this time. Timing/Duration: yesterday Severity: mild Modifying Factors: Improves With: nothing Associated Symptoms: denies symptoms Allergies/Adverse Reactions: levofloxacin Allergy (Intermediate, Verified 07/31/21 13:25) Hives Home Medications: Fluticasone/Vilanterol [Breo Ellipta 200-25 Mcg INH] 1 puff IH DAILY 03/10/17 [History] Cholecalciferol (Vitamin D3) [D3-2000] 2,000 unit PO HS 11/25/18 [History] Aspirin EC 81 mg [Ecotrin 81 mg] 1 tab PO DAILY 04/15/19 [History] Gabapentin [Neurontin ] 300 mg PO TID 12/18/20 [History] Levothyroxine Sodium 75 Mcg [Synthroid 75 Mcg] 75 mcg PO DAILY 12/18/20 [History] Apixaban [Eliquis] 5 mg PO BID 02/12/21 [History] Tiotropium [place] Inhaler [Spiriva 18 Mcg/Cap Inhaler] 1 inh NEB DAILY 02/12/21 [History] Amiodarone HCl [Pacerone] 200 mg PO DAILY 07/31/21 [History] Fluticasone/Vilanterol [Breo Ellipta 200-25 Mcg INH] 1 inh INTRANASAL DAILY 07/31/21 [History] Hx Tetanus, Diphtheria Vaccination/Date Given: No Hx Influenza Vaccination/Date Given: Yes Hx Pneumococcal Vaccination/Date Given: Yes Immunizations Up to Date: Yes Travel Risk - International Travel Have you traveled outside of the country in past 3 weeks: No - Coronavirus Screening Are you exhibiting any of the following symptoms?: No Symptoms: Shortness of Breath - Vaccine Status Have you recieved a Covid-19 vaccination: No - Review of Systems Constitutional: No Symptoms, No Fever, No Chills Eyes: No Symptoms Ears, Nose, & Throat: No Symptoms Respiratory: No Symptoms, No Cough, No Dyspnea Cardiac: No Symptoms, No Chest Pain, No Edema, No Syncope Abdominal/Gastrointestinal: No Symptoms, No Abdominal Pain, No Nausea, No Vomiting, No Diarrhea Genitourinary Symptoms: No Symptoms, No Dysuria Musculoskeletal: No Symptoms, No Back Pain, No Neck Pain Skin: No Symptoms, No Rash Neurological: No Symptoms, No Dizziness, No Focal Weakness, No Sensory Changes Psychological: No Symptoms Endocrine: No Symptoms Hematologic/Lymphatic: No Symptoms Immunological/Allergic: No Symptoms All Other Systems: Reviewed and Negative - Past Medical History Pertinent Past Medical History: Yes Neurological History: No Pertinent History ENT History: No Pertinent History Cardiac History: Coronary Artery Disease, High Cholesterol, Hypertension Respiratory History: COPD, Pneumonia Endocrine Medical History: Hypothyroidism Musculoskeletal History: Osteoarthritis GI Medical History: No Pertinent History History: Renal Disease Psycho-Social History: No Pertinent History Male Reproductive Disorders: Prostate Problems Other Medical History: SX HX: CHOLECYSTECTOMY, CARDIAC STENTS X 3 - Past Surgical History Past Surgical History: Yes Neuro Surgical History: No Pertinent History Cardiac: Cardiac Catheterization, Cardiac Stent Respiratory: No Pertinent History Gastrointestinal: Cholecystectomy Genitourinary: No Pertinent History Musculoskeletal: Other Male Surgical History: Other Other Surgical History: Mediastinoscopy and " urologic procedure." 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 - Social History Smoking Status: Never smoker Exposure to second hand smoke: No Alcohol Use: None Drug Use: none Patient Lives Alone: No Significant Family History: no pertinent family hx - Nursing Vital Signs Nursing Vital Signs: Initial Vital Signs Temperature 98.1 F 12/17/21 07:22 Pulse Rate 67 12/17/21 07:22 Respiratory Rate 20 12/17/21 07:22 Blood Pressure 138/72 12/17/21 07:22 O2 Sat by Pulse Oximetry 94 L 12/17/21 07:22 Pain Scale Pain Intensity 2 - Physical Exam General Appearance: no apparent distress, alert Eye Exam: PERRL/EOMI, eyes nml inspection Ears, Nose, Throat Exam: normal ENT inspection, TMs normal, pharynx normal, moist mucous membranes Neck Exam: normal inspection, non-tender, supple, full range of motion Respiratory Exam: normal breath sounds, lungs clear, airway intact, No chest tenderness, No respiratory distress Cardiovascular Exam: regular rate/rhythm, normal heart sounds, normal peripheral pulses Gastrointestinal/Abdomen Exam: soft, normal bowel sounds, No tenderness, No mass Back Exam: normal inspection, normal range of motion, No CVA tenderness, No vertebral tenderness Extremity Exam: normal inspection, normal range of motion, pelvis stable, other (Left index finger lateral aspect of MCP displays a superficial 2 cm skin tear. No active bleeding at this time. Palpable radial pulse. Cap refill less than 2 seconds. Sensation to light touch intact. Compartments are soft. Tendon function is intact in both flexion and extension. Physical exam) Neurologic Exam: alert, oriented x 3, cooperative, normal mood/affect, nml cerebellar function, nml station & gait, sensation nml, No motor deficits Skin Exam: normal color, warm, dry, No rash Lymphatic Exam: No adenopathy SpO2 Interpretation: normal SpO2: 94 O2 Delivery: Room Air - Course Nursing assessment & vital signs reviewed: Yes Ordered Tests: Medication Summary Discontinued Medications Generic Name Dose Route Start Last Admin Trade Name Freq PRN Reason Stop Dose Admin Diphtheria/Tetanus/Acell Pertussis 0.5 ml 12/17/21 07:45 Tdap --Diph,Pertuss(Acell),Tet Vac/Pf 0.5 Ml Vial IM 12/17/21 07:46 .ONCE ONE - Progress Progress: improved Progress Note: 12/17/21 07:52 No active bleeding observed during physical exam. Extremity neurovascular intact distally. The wound is superficial and does not require laceration repair. Tetanus updated. No indication for antibiotics at this time. The wound is clean noncontaminated. No bony tenderness. Patient otherwise feels well. He voices no other complaints or concerns at this time. Patient agrees to follow-up with primary care doctor within 48 hours for evaluation. Portions of this note were created with voice recognition technology. There may be grammatical, spelling, punctuation or sound alike errors Counseled pt/family regarding: diagnosis, need for follow-up - Departure Departure Disposition: Home Clinical Impression: Skin tear, Tetanus toxoid inoculation Condition: Stable Critical Care Time: No Referrals: KENAN MONTILLA [Primary Care Provider] - Follow up/PCP as directed Additional Instructions: Discharge/Care Plan HERNESTO BRIDGES was seen on 12/17/21 in the Emergency Room. The patient was counseled regarding Diagnosis,Lab results, Imaging studies, need for follow up and when to return to the Emergency Room. Prescriptions given: Discharge Note I have spoken with the patient and/or caregivers. I have explained the patient's condition, diagnosis and treatment plan based on the information available to me at this time. I have answered the patient's and/or caregiver's questions and addressed any concerns. The patient and/or caregivers have as good understanding of the patient's diagnosis, condition and treatment plan as can be expected at this point. The vital signs have been stable. The patient's condition is stable and appropriate for discharge from the emergency department. The patient will pursue further outpatient evaluation with the primary care physician or other designated or consulting physician as outlined in the discharge instructions. The patient and/or caregivers are agreeable to this plan of care and follow-up instructions have been explained in detail. The patient a nd/or caregivers have received these instruction. The patient/and or caregivers are aware that any significant change in condition or worsening of symptoms should prompt an immediate return to this or the closest emergency department or call 911.
== END 2021-12-17 08:20 | disposition home or self-care (01) ==
LOC: ED 07:16
DX: S61.211A Laceration without foreign body of left index finger without damage to nail, initial encounter (principal); W26.9XXA Contact with unspecified sharp object(s), initial encounter; Z23 Encounter for immunization; E78.5 Hyperlipidemia, unspecified; I10 Essential (primary) hypertension; J44.9 Chronic obstructive pulmonary disease, unspecified; Z79.01 Long term (current) use of anticoagulants; Z79.899 Other long term (current) drug therapy
CPT/HCPCS: 90471; 90715; 99283

== ENCOUNTER 2022-02-07 19:49 | Emergency (ER) | payer MEDICARE ==
--- NOTE | 2022-02-07 19:55 | ERPHSYRPT ---
- History of Present Illness Time Seen by Provider: 02/07/22 19:55 Source: patient Exam Limitations: no limitations Physician History: This is a right-handed 72-year-old white male patient who is on Eliquis and has arrhythmia issues as well as hypothyroidism. Patient presents to the emergency department with a laceration to the dorsal aspect of his left hand. Patient was working with sharp blade and taking apart air conditioning unit when he suffered, an accidental laceration. Patient's tetanus status was within the last year or 2. Quality: painful Severity: mild Location: hands (Left hand dorsal aspect) Possible Causes: other (Accidental using a sharp blade) Associated Symptoms: denies symptoms Allergies/Adverse Reactions: levofloxacin Allergy (Intermediate, Verified 02/07/22 19:55) Hives Home Medications: Fluticasone/Vilanterol [Breo Ellipta 200-25 Mcg INH] 1 puff IH DAILY 03/10/17 [History] Cholecalciferol (Vitamin D3) [D3-2000] 2,000 unit PO HS 11/25/18 [History] Aspirin EC 81 mg [Ecotrin 81 mg] 81 mg PO DAILY 04/15/19 [History] Levothyroxine Sodium 75 Mcg [Synthroid 75 Mcg] 75 mcg PO DAILY 12/18/20 [History] Apixaban [Eliquis] 10 mg PO QHS 02/12/21 [History] Tiotropium [place] Inhaler [Spiriva 18 Mcg/Cap Inhaler] 1 inh NEB DAILY 02/12/21 [History] Amiodarone HCl [Pacerone] 100 mg PO DAILY 07/31/21 [History] Albuterol 8 gm Mdi Hfa [Ventolin Hfa MDI] 2 puff IH QDP PRN 02/07/22 [History] Atorvastatin Calcium 85 mg PO QHS 02/07/22 [History] Hx Tetanus, Diphtheria Vaccination/Date Given: No Hx Influenza Vaccination/Date Given: Yes Hx Pneumococcal Vaccination/Date Given: Yes Travel Risk - International Travel Have you traveled outside of the country in past 3 weeks: No - Coronavirus Screening Are you exhibiting any of the following symptoms?: No Close contact with a COVID-19 positive Pt in past 14-21 Days: No - Vaccine Status Have you recieved a Covid-19 vaccination: No - Review of Systems Constitutional: No Symptoms Eyes: No Symptoms Ears, Nose, & Throat: No Symptoms, Throat Swelling Cardiac: No Symptoms Abdominal/Gastrointestinal: No Symptoms Genitourinary Symptoms: No Symptoms Musculoskeletal: No Symptoms Skin: Other (1 cm laceration dorsal aspect left hand) Neurological: No Symptoms Psychological: No Symptoms Endocrine: No Symptoms Hematologic/Lymphatic: No Symptoms Immunological/Allergic: No Symptoms All Other Systems: Reviewed and Negative - Past Medical History Pertinent Past Medical History: Yes Neurological History: No Pertinent History ENT History: No Pertinent History Cardiac History: Coronary Artery Disease, High Cholesterol, Hypertension Respiratory History: COPD, Pneumonia Endocrine Medical History: Hypothyroidism Musculoskeletal History: Osteoarthritis GI Medical History: No Pertinent History History: Renal Disease Psycho-Social History: No Pertinent History Male Reproductive Disorders: Prostate Problems Other Medical History: SX HX: CHOLECYSTECTOMY, CARDIAC STENTS X 3 - Past Surgical History Past Surgical History: Yes Neuro Surgical History: No Pertinent History Cardiac: Cardiac Catheterization, Cardiac Stent Respiratory: No Pertinent History Gastrointestinal: Cholecystectomy Genitourinary: No Pertinent History Musculoskeletal: Other Male Surgical History: Other Other Surgical History: Mediastinoscopy and " urologic procedure." 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 - Social History Smoking Status: Never smoker Exposure to second hand smoke: No Alcohol Use: None Drug Use: none Patient Lives Alone: No Significant Family History: no pertinent family hx - Nursing Vital Signs Nursing Vital Signs: Initial Vital Signs Temperature 98 F 02/07/22 19:59 Pulse Rate 69 02/07/22 19:59 Respiratory Rate 16 02/07/22 19:59 Blood Pressure 142/75 02/07/22 19:59 O2 Sat by Pulse Oximetry 94 L 02/07/22 19:59 Pain Scale Pain Intensity 0 - Physical Exam General Appearance: no apparent distress, alert Eye Exam: PERRL/EOMI, eyes nml inspection Ears, Nose, Throat Exam: normal ENT inspection, moist mucous membranes Neck Exam: normal inspection, non-tender, supple, full range of motion Respiratory Exam: airway intact, No chest tenderness, No respiratory distress Gastrointestinal/Abdomen Exam: No tenderness Rectal Exam: not done Back Exam: normal inspection, normal range of motion, No CVA tenderness, No vertebral tenderness Extremity Exam: normal range of motion, pelvis stable, lacerations (1 cm laceration superficial dorsal aspect left hand no foreign body present.), other (Neurovascularly intact and no tendon injury) Neurologic Exam: alert, oriented x 3, cooperative, joist setter II-XII nml as tested, normal mood/affect, nml cerebellar function, nml station & gait, sensation nml Skin Exam: laceration (Left hand dorsal aspect see above) SpO2 Interpretation: normal O2 Delivery: Room Air Procedures - Laceration/Wound Repair Left Dorsal Hand Time of Procedure: 20:15 Wound Location: Left, hand (Dorsal aspect) Wound Length (cm): 1 Wound's Depth, Shape: superficial, linear, flap Wound Explored: clean (Evaluation was performed to the base in a bloodless field and no foreign body is noted) Irrigated: Yes Hibiclens Prep: Yes Wound Repaired With: Steri-strips (1/2 inch), Dermabond Progress: 02/07/22 20:26 After the wound side of the left hand was irrigated well and washed with Hibiclens, this site was dried with 4 x 4 gauze. The area was prepped with benzoin solution. The skin laceration site was covered with Dermabond. We blotted dry then applied 1/2 inch Steri-Strips and then a pressure dressing. There were no complications and patient tolerated the procedure well. - Course Nursing assessment & vital signs reviewed: Yes - Progress Progress: improved Counseled pt/family regarding: diagnosis - Departure Departure Disposition: Home Clinical Impression: Laceration of left hand Condition: Stable Critical Care Time: No Referrals: KENAN MONTILLA [Primary Care Provider] - Follow up/PCP as directed Additional Instructions: Keep current pressure dressing in place until tomorrow at 9 PM. At 9 PM tomorrow evening, 02/08/2022, remove the top dressing and leave the Steri-Strips in place until they fall off on their own. As the Steri-Strips curl up trim them.
[2022-02-07 20:41] VITALS: BP 129/71; PULSE 61; O2SAT 93
== END 2022-02-07 20:41 | disposition home or self-care (01) ==
LOC: ED 19:49
DX: S61.412A Laceration without foreign body of left hand, initial encounter (principal); W26.0XXA Contact with knife, initial encounter; E78.5 Hyperlipidemia, unspecified; I10 Essential (primary) hypertension; J44.9 Chronic obstructive pulmonary disease, unspecified; Z79.01 Long term (current) use of anticoagulants; Z79.899 Other long term (current) drug therapy; Z28.310 Unvaccinated for COVID-19
CPT/HCPCS: 12001; 99281

== ENCOUNTER 2022-09-24 20:36 | Emergency (ER) | payer MEDICARE ==
--- NOTE | 2022-09-24 21:37 | ERPHSYRPT ---
- History of Present Illness Source: patient Exam Limitations: no limitations Patient Subjective Stated Complaint: My foot started hurting today and I can't hardly walk on it Triage Nursing Assessment: pt ambulated into ER without diff, pt's sister at bedside. Pt is alert and oriented x3, pleasant and cooperative. Pt c/o pain to the bottom of his left foot which began around 3pm today. Pedal pulse present. Pt denies any falls or injury to this foot. No swelling noted. Physician History: 72 yo wm w L plantar pain since 15:00 today. Pt denies injury and states that pain occurred while helping a friend. Pain is currently 8/10 and worse w weight bearing. He denies h/o gout but states that he tested negative for it in the past. Fever/chills/rash/lesions/DM are all denied Method of Injury: unknown Occurred: other (1500 today) Quality: constant Severity of Pain-Max: severe Severity of Pain-Current: severe Lower Extremities Pain: foot: left Modifying Factors: Improves With: movement Associated Symptoms: other (Painful to bear weight) Allergies/Adverse Reactions: levofloxacin Allergy (Intermediate, Verified 09/24/22 20:49) Hives Home Medications: Fluticasone/Vilanterol [Breo Ellipta 200-25 Mcg INH] 1 puff IH DAILY 03/10/17 [History] Cholecalciferol (Vitamin D3) [D3-2000] 2,000 unit PO HS 11/25/18 [History] Aspirin EC 81 mg [Ecotrin 81 mg] 81 mg PO DAILY 04/15/19 [History] Levothyroxine Sodium 75 Mcg [Synthroid 75 Mcg] 75 mcg PO DAILY 12/18/20 [History] Apixaban [Eliquis] 10 mg PO QHS 02/12/21 [History] Tiotropium [place] Inhaler [Spiriva 18 Mcg/Cap Inhaler] 1 inh NEB DAILY 02/12/21 [History] Amiodarone HCl [Pacerone] 100 mg PO DAILY 07/31/21 [History] Albuterol 8 gm Mdi Hfa [Ventolin Hfa MDI] 2 puff IH QDP PRN 02/07/22 [History] Atorvastatin Calcium 85 mg PO QHS 02/07/22 [History] Hx Tetanus, Diphtheria Vaccination/Date Given: Yes Hx Influenza Vaccination/Date Given: Yes Hx Pneumococcal Vaccination/Date Given: Yes Immunizations Up to Date: Yes Travel Risk - International Travel Have you traveled outside of the country in past 3 weeks: No - Coronavirus Screening Are you exhibiting any of the following symptoms?: No Close contact with a COVID-19 positive Pt in past 14-21 Days: No - Vaccine Status Have you recieved a Covid-19 vaccination: No - Review of Systems Constitutional: No Symptoms Eyes: No Symptoms Ears, Nose, & Throat: No Symptoms Respiratory: No Symptoms Cardiac: No Symptoms Abdominal/Gastrointestinal: No Symptoms Genitourinary Symptoms: No Symptoms Skin: No Symptoms Neurological: No Symptoms Psychological: No Symptoms Endocrine: No Symptoms Hematologic/Lymphatic: No Symptoms Immunological/Allergic: No Symptoms - Past Medical History Pertinent Past Medical History: Yes Neurological History: No Pertinent History ENT History: No Pertinent History Cardiac History: Coronary Artery Disease, High Cholesterol, Hypertension Respiratory History: COPD, Pneumonia Endocrine Medical History: Hypothyroidism Musculoskeletal History: Osteoarthritis GI Medical History: No Pertinent History History: Renal Disease Psycho-Social History: No Pertinent History Male Reproductive Disorders: Prostate Problems Other Medical History: SX HX: CHOLECYSTECTOMY, CARDIAC STENTS X 3 - Past Surgical History Past Surgical History: Yes Neuro Surgical History: No Pertinent History Cardiac: Cardiac Catheterization, Cardiac Stent Respiratory: No Pertinent History Gastrointestinal: Cholecystectomy Genitourinary: No Pertinent History Musculoskeletal: Other Male Surgical History: Other Other Surgical History: Mediastinoscopy and " urologic procedure." 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 nerve surgery to left foot around the ankle in Apr, 2022. - Social History Smoking Status: Former smoker Exposure to second hand smoke: No Alcohol Use: None Drug Use: none Patient Lives Alone: No Significant Family History: no pertinent family hx - Nursing Vital Signs Nursing Vital Signs: Initial Vital Signs Temperature 98.4 F 09/24/22 20:41 Pulse Rate 84 09/24/22 20:41 Respiratory Rate 20 09/24/22 20:41 Blood Pressure 153/79 09/24/22 20:41 O2 Sat by Pulse Oximetry 93 L 09/24/22 20:41 Pain Scale Pain Intensity 6 Hypertensive/borderline sats - Physical Exam General Appearance: no apparent distress Eyes, Ears, Nose, Throat Exam: normal ENT inspection, TMs normal, pharynx normal, moist mucous membranes Neck Exam: normal inspection, non-tender, supple, full range of motion, No Brudzinski, No Kernig's, No meningismus Cardiovascular/Respiratory Exam: regular rate/rhythm, heart sounds normal, no respiratory distress, rales (Faint rales at bases B) Gastrointestinal/Abdominal Exam: non-tender, soft Back Exam: normal inspection, normal range of motion Hips Exam: bilateral: non-tender, normal inspection, normal range of motion, no evidence of injury Legs Exam: bilateral leg: non-tender, normal inspection, normal range of motion, no evidence of injury Knees Exam: bilateral knee: non-tender, normal inspection, normal range of motion, no evidence of injury Ankle Exam: bilateral ankle: non-tender, normal inspection, normal range of motion, no evidence of injury Foot Exam: left foot: pain (TTP L proximal plantar fascia/No deformity/Good pedal pulse, distal sensation, and capillary return) Neuro/Tendon Exam: normal sensation, normal motor functions, normal tendon functions, responds to pain Mental Status Exam: alert, oriented x 3, cooperative Skin Exam: normal color, warm, dry SpO2 Interpretation: borderline oxygenation SpO2: 92 O2 Delivery: Room Air - Course Nursing assessment & vital signs reviewed: Yes - Radiology Exams Foot X-ray Interpretation: Interpreted by me (L foot neg per ER read) Ordered Tests: Active Orders 24 hr Category Date Time Status Vidal Bandage Application -[facility] STAT Care 09/24/22 22:20 Completed Splint STAT Care 09/24/22 22:21 Completed FOOT (MINIMUM 3 VIEWS) Stat Exams 09/24/22 21:08 Taken SED RATE [Erythrocyte Sedimentation Rate] Stat Lab 09/24/22 21:41 Completed Uric Acid Stat Lab 09/24/22 21:09 Completed Medication Summary Discontinued Medications Generic Name Dose Route Start Last Admin Trade Name Freq PRN Reason Stop Dose Admin Ketorolac Tromethamine 15 mg 09/24/22 22:20 09/24/22 22:20 Ketorolac Tromethamine 30 Mg/Ml Inj IM 09/24/22 22:21 15 mg STAT ONE Administration Ketorolac Tromethamine Confirm 09/24/22 22:26 Ketorolac Tromethamine 30 Mg/Ml Inj Administered 09/24/22 22:27 Dose 30 mg .ROUTE .[facility] Lab/Rad Data: Laboratory Results 09/24/22 09/24/22 Range/Units 21:41 21:09 ESR 3 (0-15) mm/hr Uric Acid 6.7 (3.5-7.2) mg/dL - Progress Progress Note: 09/24/22 22:21 Nursing note and vital signs reviewed No food or housing insecurities noted L foot XR neg per ER read Uric acid and sed rate WNL Pt is a full code Most likely diagnosis is plantar fasciitis, vs less likely occult fx or strain 15mg IM toradol Vidal wrap/post-op shoe per nursing/NVI 09/24/22 22:57 Counseled pt/family regarding: lab results, diagnosis, need for follow-up, rad results - Departure Departure Disposition: Home Clinical Impression: Plantar fasciitis of left foot Condition: Stable Critical Care Time: No Referrals: KENAN MONTILLA [Primary Care Provider] - Follow up/PCP as directed ASHLEY - NITA JIMENEZ NP [NON-STAFF PHY W/O PRIVILEGES] - Follow up/PCP as directed Instructions: Heel Pain Caused by Plantar Fasciitis (DC), Plantar Fasciitis Exercises, Foot Sprain (DC) Additional Instructions: Follow up with family MD or in orthopedic clinic M-Fr 8-10AM for continued pain Vidal wrap and post-op shoe for 3-4 days Weight bearing as tolerated Return to ER for worsening symptoms Prescriptions: Ketorolac Trometh 10 mg Tab [TORAdol 10 MG TABLET] 10 mg PO TID PRN PRN #10 tablet PRN Reason: Pain
[2022-09-24] MEDS ORDERED: TORAdol 30 mg Injection IM ONE (22:20)
[2022-09-24 22:24] VITALS: O2SAT 92
[2022-09-24] MEDS ORDERED: TORAdol 30 mg Injection ONE (22:26)
[2022-09-24 22:35] VITALS: BP 125/76; PULSE 80
--- NOTE | 2022-09-25 08:43 | XRAY ---
Indication: Pain. No known injury. Comparison: June 18, 2021 3 nonweightbearing views left foot unchanged again demonstrating osteopenia, tiny heel spurs, and diffuse scattered vascular calcifications. No new/acute abnormalities.
== END 2022-09-24 22:38 | disposition home or self-care (01) ==
LOC: ED 20:36
DX: M72.2 Plantar fascial fibromatosis (principal); M79.672 Pain in left foot; E78.5 Hyperlipidemia, unspecified; I10 Essential (primary) hypertension; J44.9 Chronic obstructive pulmonary disease, unspecified; Z79.899 Other long term (current) drug therapy; Z28.310 Unvaccinated for COVID-19
CPT/HCPCS: 36415; 73630; 84550; 85652; 96372; 99284; J1885

== ENCOUNTER 2022-09-30 23:12 | Emergency (ER) | payer MEDICARE ==
[2022-09-30 23:46] LABS: Absolute Neutrophil Ct (ANC) 3.65 x10^3/uL (1.4-6.9); BASOPHIL % 0.9 % (0.0-0.4); Basophil (Absolute #) 0.06 x10^3/uL (0-0.4); Eosinophil % 15.1 % (0.00-5.0); Eosinophil (Absolute #) 1.02 x10^3/uL (0-0.5); Hematocrit 43.8 % (42-50); Hemoglobin 14.4 g/dL (12.5-18.0); IMMATURE GRAN # 0.03 x10^3u/L (0.00-0.03); IMMATURE GRAN % 0.4 % (0.00-0.4); Lymphocyte (Absolute #) 1.38 x10^3/uL (1.0-4.6); Lymphocytes % 20.4 % (24.0-44.0); Mean Cell Volume 95.2 fL (78-100); Mean Corpuscular Hemoglobin 31.3 pg (26-32); Mean Corpuscular Hgb Concent. 32.9 g/dL (32-36); Mean Platelet Volume 9.4 fL (7.5-11.0); Monocyte (Absolute #) 0.61 x10^3/uL (0.0-1.3); Neutrophil % 54.2 % (36.0-66.0); Platelet Count 153 x10^3/uL (150-450); Red Cell Distribution Width 13.1 % (11.5-14.0); White Blood Count 6.8 x10^3/uL (4.0-10.5)
[2022-09-30 23:51] LABS: Appearance Clear (Clear); Bacteria None Seen /HPF (None Seen); Bilirubin Negative (Negative); Blood Negative (Negative); Epithelial Cells None Seen /HPF (None Seen); Glucose, Urine Negative (Negative); Hyaline Casts NONE SEEN /LPF (0-2); Ketones Negative (Negative); Leukocyte Esterase Negative (Negative); Nitrite Negative (Negative); Ph 6.5 (4.6-8.0); Protein,Urine Dip Negative (Negative); RBC 0-2 /HPF (0-5); Specific Gravity 1.015 (1.005-1.030); WBC 0-2 /HPF (0-5)
[2022-09-30] MEDS ORDERED: TORAdol 30 mg Injection IM ONE (23:52)
[2022-09-30] MEDS ORDERED: TYLENOL 325 MG PO ONE (23:52)
[2022-09-30 23:53] LABS: ADD URINE CULTURE? NO (NO)
[2022-09-30 23:57] LABS: ALBUMIN 3.9 g/dL (3.5-5.0); ALKALINE PHOSPHATASE 99 U/L (38-126); BLOOD UREA NITROGEN 19 mg/dL (9-20); CHLORIDE 104 mmol/L (98-107); Calcium 8.5 mg/dL (8.4-10.2); Carbon Dioxide 25 mmol/L (22-30); Creatinine 1 1.21 mg/dL (0.66-1.25); EST GLOMERULAR FILTRATION RATE > 60.0 ML/MIN; Glucose 108 mg/dL (74-106); Potassium 3.8 mmol/L (3.5-5.1); SGOT/AST 28 U/L (17-59); SGPT/ALT 30 U/L (0-50); SODIUM 137 mmol/L (137-145); Total Protein 6.6 g/dL (6.3-8.2)
[2022-10-01] MEDS ORDERED: TYLENOL 325 MG ONE (00:04)
[2022-10-01 00:06] LABS: INFLUENZA A NEGATIVE (NEGATIVE); INFLUENZA B NEGATIVE (NEGATIVE); RESPIRATORY SYNCTIAL VIRUS NEGATIVE (Negative); SARS-CoV-2 Xpert Express NEGATIVE (NEGATIVE)
[2022-10-01] MEDS ORDERED: TORAdol 30 mg Injection ONE (00:25)
--- NOTE | 2022-10-01 00:43 | ERPHSYRPT ---
- History of Present Illness Time Seen by Provider: 09/30/22 23:30 Source: patient Exam Limitations: no limitations Patient Subjective Stated Complaint: headache, malaise and felt warm Triage Nursing Assessment: pt arrived via EMS, alert and oriented x4, cooperative. Pt c/o a headache off and on since yesterday, malaise and "feeling warm" but has been afebrile. Pt has not had a temp at home and is afebrile here. Pt denies any chest pain, sob, nausea or vomiting. Physician History: Patient is a 72-year-old male presents to our ED via EMS for evaluation of a frontal headache subjective fevers and generalized malaise. Symptoms have been ongoing for 1 day. Patient otherwise feels well. No nausea or vomiting no diarrhea. No rash. No numbness tingling or weakness. No chest pain or shortness of breath. Symptoms are constant. Symptoms are moderate in intensity. No specific worsening improving factors. Patient voices no other complaints or concerns at this time. Portions of this note were created with voice recognition technology. There may be grammatical, spelling, punctuation or sound alike errors Timing/Duration: today Severity: moderate Modifying Factors: Improves With: nothing Associated Symptoms: denies symptoms Allergies/Adverse Reactions: levofloxacin Allergy (Intermediate, Verified 09/30/22 23:24) Hives Home Medications: Fluticasone/Vilanterol [Breo Ellipta 200-25 Mcg INH] 1 puff IH DAILY 03/10/17 [History] Cholecalciferol (Vitamin D3) [D3-2000] 2,000 unit PO HS 11/25/18 [History] Aspirin EC 81 mg [Ecotrin 81 mg] 81 mg PO DAILY 04/15/19 [History] Levothyroxine Sodium 75 Mcg [Synthroid 75 Mcg] 75 mcg PO DAILY 12/18/20 [History] Apixaban [Eliquis] 10 mg PO QHS 02/12/21 [History] Tiotropium [place] Inhaler [Spiriva 18 Mcg/Cap Inhaler] 1 inh NEB DAILY 02/12/21 [History] Amiodarone HCl [Pacerone] 100 mg PO DAILY 07/31/21 [History] Albuterol 8 gm Mdi Hfa [Ventolin Hfa MDI] 2 puff IH QDP PRN 02/07/22 [History] Atorvastatin Calcium 85 mg PO QHS 02/07/22 [History] Hx Tetanus, Diphtheria Vaccination/Date Given: Yes Hx Influenza Vaccination/Date Given: Yes Hx Pneumococcal Vaccination/Date Given: Yes Immunizations Up to Date: Yes Travel Risk - International Travel Have you traveled outside of the country in past 3 weeks: No - Coronavirus Screening Are you exhibiting any of the following symptoms?: Yes Symptoms: Headaches/Body Aches/Fatigue Close contact with a COVID-19 positive Pt in past 14-21 Days: No - Vaccine Status Have you recieved a Covid-19 vaccination: No - Review of Systems Constitutional: No Symptoms, No Fever, No Chills Eyes: No Symptoms Ears, Nose, & Throat: No Symptoms Respiratory: No Symptoms, No Cough, No Dyspnea Cardiac: No Symptoms, No Chest Pain, No Edema, No Syncope Abdominal/Gastrointestinal: No Symptoms, No Abdominal Pain, No Nausea, No Vomiting, No Diarrhea Genitourinary Symptoms: No Symptoms, No Dysuria Musculoskeletal: No Symptoms, No Back Pain, No Neck Pain Skin: No Symptoms, No Rash Neurological: No Symptoms, No Dizziness, No Focal Weakness, No Sensory Changes Psychological: No Symptoms Endocrine: No Symptoms Hematologic/Lymphatic: No Symptoms Immunological/Allergic: No Symptoms All Other Systems: Reviewed and Negative - Past Medical History Pertinent Past Medical History: Yes Neurological History: No Pertinent History ENT History: No Pertinent History Cardiac History: Coronary Artery Disease, High Cholesterol, Hypertension Respiratory History: COPD, Pneumonia Endocrine Medical History: Hypothyroidism Musculoskeletal History: Osteoarthritis GI Medical History: No Pertinent History History: Renal Disease Psycho-Social History: No Pertinent History Male Reproductive Disorders: Prostate Problems Other Medical History: SX HX: CHOLECYSTECTOMY, CARDIAC STENTS X 3 - Past Surgical History Past Surgical History: Yes Neuro Surgical History: No Pertinent History Cardiac: Cardiac Catheterization, Cardiac Stent Respiratory: No Pertinent History Gastrointestinal: Cholecystectomy Genitourinary: No Pertinent History Musculoskeletal: Other Male Surgical History: Other Other Surgical History: Mediastinoscopy and " urologic procedure." 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 nerve surgery to left foot around the ankle in Apr, 2022. - Social History Smoking Status: Never smoker Exposure to second hand smoke: No Alcohol Use: None Drug Use: none Patient Lives Alone: No Significant Family History: no pertinent family hx - Nursing Vital Signs Nursing Vital Signs: Initial Vital Signs Temperature 98.0 F 09/30/22 23:14 Pulse Rate 77 09/30/22 23:14 Respiratory Rate 20 09/30/22 23:14 Blood Pressure 132/68 09/30/22 23:14 O2 Sat by Pulse Oximetry 93 L 09/30/22 23:14 Pain Scale Pain Intensity 4 - Physical Exam General Appearance: no apparent distress, alert Eye Exam: PERRL/EOMI, eyes nml inspection Ears, Nose, Throat Exam: normal ENT inspection, TMs normal, pharynx normal, moist mucous membranes, other (Ental sinus tenderness to palpation) Neck Exam: normal inspection, non-tender, supple, full range of motion Respiratory Exam: normal breath sounds, lungs clear, airway intact, No respiratory distress Cardiovascular Exam: regular rate/rhythm, normal heart sounds, normal peripheral pulses Gastrointestinal/Abdomen Exam: soft, normal bowel sounds, No tenderness, No mass Back Exam: normal inspection, normal range of motion, No CVA tenderness, No vertebral tenderness Extremity Exam: normal inspection, normal range of motion, pelvis stable Neurologic Exam: alert, oriented x 3, cooperative, normal mood/affect, nml cerebellar function, nml station & gait, sensation nml, No motor deficits Skin Exam: normal color, warm, dry, No rash Lymphatic Exam: No adenopathy SpO2 Interpretation: normal SpO2: 93 O2 Delivery: Room Air - Course Nursing assessment & vital signs reviewed: Yes - CT Exams Head CT Interpretation: Tele-radiologist Report (No acute large vessel infarction intracranial bleed or mass. Pansinusitis) Ordered Tests: Active Orders 24 hr Category Date Time Status HEAD WITHOUT CONTRAST [CT] Stat Exams 09/30/22 23:27 Taken CBC W DIFF Stat Lab 09/30/22 23:42 Completed CMP Stat Lab 09/30/22 23:42 Completed UA W/RFX UR CULTURE Stat Lab 09/30/22 23:36 Completed Medication Summary Discontinued Medications Generic Name Dose Route Start Last Admin Trade Name Freq PRN Reason Stop Dose Admin Acetaminophen 975 mg 09/30/22 23:52 10/01/22 00:05 Acetaminophen 325 Mg Tablet PO 09/30/22 23:53 975 mg STAT ONE Administration Acetaminophen Confirm 10/01/22 00:04 Acetaminophen 325 Mg Tablet Administered 10/01/22 00:05 Dose 975 mg .ROUTE .[facility] ONE Amoxicillin/Clavulanate Potassium 875 mg 10/01/22 00:53 10/01/22 00:54 Amox Tr/Potassium Clavulanate 875 Mg Tablet PO 10/01/22 00:54 875 mg STAT ONE Administration Amoxicillin/Clavulanate Potassium Confirm 10/01/22 00:54 Amox Tr/Potassium Clavulanate 875 Mg Tablet Administered 10/01/22 00:55 Dose 875 mg .ROUTE .[facility] ONE Ketorolac Tromethamine 30 mg 09/30/22 23:52 10/01/22 00:28 Ketorolac Tromethamine 30 Mg/Ml Inj IM 09/30/22 23:53 30 mg STAT ONE Administration Ketorolac Tromethamine Confirm 10/01/22 00:25 Ketorolac Tromethamine 30 Mg/Ml Inj Administered 10/01/22 00:26 Dose 30 mg .ROUTE .[facility] Lab/Rad Data: Laboratory Result Diagrams 09/30/22 23:42 09/30/22 23:42 Laboratory Results 09/30/22 09/30/22 09/30/22 Range/Units 23:42 23:42 23:36 WBC 6.8 (4.0-10.5) x10^3/uL RBC 4.60 (4.1-5.6) x10^6/uL Hgb 14.4 (12.5-18.0) g/dL Hct 43.8 (42-50) % MCV 95.2 (78-100) fL MCH 31.3 (26-32) pg MCHC 32.9 (32-36) g/dL RDW 13.1 (11.5-14.0) % Plt Count 153 (150-450) x10^3/uL MPV 9.4 (7.5-11.0) fL Gran % 54.2 (36.0-66.0) % Immature Gran % (Auto) 0.4 (0.00-0.4) % Nucleat RBC Rel Count 0.0 (0.00-0.1) % Eos # (Auto) 1.02 H (0-0.5) x10^3/uL Immature Gran # (Auto) 0.03 (0.00-0.03) x10^3u/L Absolute Lymphs (auto) 1.38 (1.0-4.6) x10^3/uL Absolute Monos (auto) 0.61 (0.0-1.3) x10^3/uL Absolute Nucleated RBC 0.00 (0.00-0.01) x10^3u/L Lymphocytes % 20.4 L (24.0-44.0) % Monocytes % 9.0 (0.0-12.0) % Eosinophils % 15.1 H (0.00-5.0) % Basophils % 0.9 (0.0-0.4) % Absolute Granulocytes 3.65 (1.4-6.9) x10^3/uL Basophils # 0.06 (0-0.4) x10^3/uL Sodium 137 (137-145) mmol/L Potassium 3.8 (3.5-5.1) mmol/L Chloride 104 (98-107) mmol/L Carbon Dioxide 25 (22-30) mmol/L Anion Gap 11.0 (5-15) MEQ/L BUN 19 (9-20) mg/dL Creatinine 1.21 (0.66-1.25) mg/dL Estimated GFR > 60.0 ML/MIN Glucose 108 H (74-106) mg/dL Calcium 8.5 (8.4-10.2) mg/dL Total Bilirubin 2.30 H (0.2-1.3) mg/dL AST 28 (17-59) U/L ALT 30 (0-50) U/L Alkaline Phosphatase 99 (38-126) U/L Serum Total Protein 6.6 (6.3-8.2) g/dL Albumin 3.9 (3.5-5.0) g/dL Urine Color Yellow (Yellow) Urine Appearance Clear (Clear) Urine pH 6.5 (4.6-8.0) Ur Specific [place] 1.015 (1.005-1.030) Urine Protein Negative (Negative) Urine Glucose (UA) Negative (Negative) mg/dL Urine Ketones Negative (Negative) Urine Blood Negative (Negative) Urine Nitrite Negative (Negative) Urine Bilirubin Negative (Negative) Urine Urobilinogen 1.0 A (0.2) mg/dL Ur Leukocyte Esterase Negative (Negative) U Hyaline Cast (Auto) NONE SEEN (0-2) /LPF Urine Microscopic RBC 0-2 (0-5) /HPF Urine Microscopic WBC 0-2 (0-5) /HPF Ur Epithelial Cells None Seen (None Seen) /HPF Urine Bacteria None Seen (None Seen) /HPF Urine Culture Reflexed NO (NO) Influenza Type A Ag (NEGATIVE) Influenza Type B Ag (NEGATIVE) RSV (PCR) (Negative) SARS-CoV-2 (PCR) (NEGATIVE) 09/30/22 Range/Units 23:25 WBC (4.0-10.5) x10^3/uL RBC (4.1-5.6) x10^6/uL Hgb (12.5-18.0) g/dL Hct (42-50) % MCV (78-100) fL MCH (26-32) pg MCHC (32-36) g/dL RDW (11.5-14.0) % Plt Count (150-450) x10^3/uL MPV (7.5-11.0) fL Gran % (36.0-66.0) % Immature Gran % (Auto) (0.00-0.4) % Nucleat RBC Rel Count (0.00-0.1) % Eos # (Auto) (0-0.5) x10^3/uL Immature Gran # (Auto) (0.00-0.03) x10^3u/L Absolute Lymphs (auto) (1.0-4.6) x10^3/uL Absolute Monos (auto) (0.0-1.3) x10^3/uL Absolute Nucleated RBC (0.00-0.01) x10^3u/L Lymphocytes % (24.0-44.0) % Monocytes % (0.0-12.0) % Eosinophils % (0.00-5.0) % Basophils % (0.0-0.4) % Absolute Granulocytes (1.4-6.9) x10^3/uL Basophils # (0-0.4) x10^3/uL Sodium (137-145) mmol/L Potassium (3.5-5.1) mmol/L Chloride (98-107) mmol/L Carbon Dioxide (22-30) mmol/L Anion Gap (5-15) MEQ/L BUN (9-20) mg/dL Creatinine (0.66-1.25) mg/dL Estimated GFR ML/MIN Glucose (74-106) mg/dL Calcium (8.4-10.2) mg/dL Total Bilirubin (0.2-1.3) mg/dL AST (17-59) U/L ALT (0-50) U/L Alkaline Phosphatase (38-126) U/L Serum Total Protein (6.3-8.2) g/dL Albumin (3.5-5.0) g/dL Urine Color (Yellow) Urine Appearance (Clear) Urine pH (4.6-8.0) Ur Specific [place] (1.005-1.030) Urine Protein (Negative) Urine Glucose (UA) (Negative) mg/dL Urine Ketones (Negative) Urine Blood (Negative) Urine Nitrite (Negative) Urine Bilirubin (Negative) Urine Urobilinogen (0.2) mg/dL Ur Leukocyte Esterase (Negative) U Hyaline Cast (Auto) (0-2) /LPF Urine Microscopic RBC (0-5) /HPF Urine Microscopic WBC (0-5) /HPF Ur Epithelial Cells (None Seen) /HPF Urine Bacteria (None Seen) /HPF Urine Culture Reflexed (NO) Influenza Type A Ag NEGATIVE (NEGATIVE) Influenza Type B Ag NEGATIVE (NEGATIVE) RSV (PCR) NEGATIVE (Negative) SARS-CoV-2 (PCR) NEGATIVE (NEGATIVE) - Progress Progress: improved Progress Note: Patient 72-year-old male presents to our ED for evaluation of frontal headache generalized malaise. Physical exam reveals frontal sinus tenderness. CT head reveals pansinusitis. CBC CMP COVID test ordered. Work-up negative. UA negative as well. Patient received Toradol and Tylenol for pain control. Patient reassessed. Headache significantly improved. Patient states he is ready for discharge. Patient received a dose of Augmentin in our ED for pansinusitis treatment. A prescription for the same was for to the patient's pharmacy. Patient agrees to follow-up with his primary care doctor within 48 hours for evaluation. Complexity of problems addressed is acute complicated with systemic illness. Patient has a pansinusitis with generalized malaise. Complexity of data reviewed and analyzed is limited. Test ordered. Test reviewed. Patient served as an independent historian however EMS also provided significant information towards HPI. Risk of complication and or morbidity/mortality of patient management is moderate. Patient received prescription medication for treatment of pansinusitis. Patient agrees to follow-up with his primary care doctor within 48 hours for reevaluation. Time spent discharging patient approximately 10 minutes. Portions of this note were created with voice recognition technology. There may be grammatical, spelling, punctuation or sound alike errors 10/01/22 00:58 Counseled pt/family regarding: lab results, diagnosis, need for follow-up, fili aguila - Departure Departure Disposition: Home (pansinusitis) Clinical Impression: Pansinusitis, Frontal headache, Total bilirubin, elevated Condition: Stable Critical Care Time: No Referrals: KENAN MONTILLA [Primary Care Provider] - Follow up/PCP as directed Prescriptions: Amox Tr/[place] Clav. 875 mg [Augmentin 875-125 Tablet] 875 mg PO BID 7 Days #14 tablet
[2022-10-01] MEDS ORDERED: Augmentin 875-125 Tablet PO ONE (00:53)
[2022-10-01] MEDS ORDERED: Augmentin 875-125 Tablet ONE (00:54)
[2022-10-01 01:00] VITALS: BP 140/77; PULSE 78
[2022-10-01 01:02] VITALS: O2SAT 93
--- NOTE | 2022-10-01 08:53 | XRAY ---
Indication: Frontal headache and dizziness. Blood thinner therapy. Multiple contiguous axial images obtained through the head without contrast. Comparison: November 17, 2018 Again age-appropriate global atrophy with now minimal periventricular degenerative micro-ischemia bilaterally. No acute intracranial hemorrhage, abnormal extra-axial fluid collection, or mass effect. Fourth ventricle is midline without hydrocephalus. Freedman-white matter differentiation preserved. Bony calvarium intact. Worsening complete and near complete opacification of the paranasal sinuses with fluid leveling. Again partial opacification of both mastoid air cells less than before. Impression: 1. Worsening pansinusitis. Again partial opacification both mastoid air cells also presumed inflammatory. 2. Atrophy and degenerative micro-ischemia within normal limits for patient's age. 3. No acute intracranial abnormalities. Comment: Preliminary interpretation made by C. No critical discrepancy.
== END 2022-10-01 01:07 | disposition home or self-care (01) ==
LOC: ED 23:12
DX: J32.4 Chronic pansinusitis (principal); R51.9 Headache, unspecified; E80.6 Other disorders of bilirubin metabolism; R53.81 Other malaise; E78.5 Hyperlipidemia, unspecified; I10 Essential (primary) hypertension; Z79.01 Long term (current) use of anticoagulants; Z79.899 Other long term (current) drug therapy; Z28.310 Unvaccinated for COVID-19
CPT/HCPCS: 0241U; 36415; 70450; 80053; 81001; 85025; 96372; 99284; J1885; A9270-GY

== ENCOUNTER 2022-10-07 09:40 | Observation (INO) | payer MEDICARE ==
[2022-10-07] MEDS ORDERED: Zofran 4 MG/2 ML VIAL IV PRN (10:31)
[2022-10-07 10:45] LABS: Absolute Neutrophil Ct (ANC) 3.13 x10^3/uL (1.4-6.9); BASOPHIL % 0.3 % (0.0-0.4); Basophil (Absolute #) 0.02 x10^3/uL (0-0.4); Eosinophil % 5.2 % (0.00-5.0); Eosinophil (Absolute #) 0.31 x10^3/uL (0-0.5); Hemoglobin 15.8 g/dL (12.5-18.0); IMMATURE GRAN # 0.03 x10^3u/L (0.00-0.03); IMMATURE GRAN % 0.5 % (0.00-0.4); Lymphocyte (Absolute #) 1.89 x10^3/uL (1.0-4.6); Lymphocytes % 31.7 % (24.0-44.0); Mean Cell Volume 94.2 fL (78-100); Mean Corpuscular Hemoglobin 31.7 pg (26-32); Mean Corpuscular Hgb Concent. 33.6 g/dL (32-36); Mean Platelet Volume 10.2 fL (7.5-11.0); Monocyte (Absolute #) 0.58 x10^3/uL (0.0-1.3); Monocytes % 9.7 % (0.0-12.0); Neutrophil % 52.6 % (36.0-66.0); Platelet Count 162 x10^3/uL (150-450); Red Blood Count 4.99 x10^6/uL (4.1-5.6); Red Cell Distribution Width 12.9 % (11.5-14.0)
[2022-10-07] MEDS ORDERED: PROVENTIL 2.5 MG/3 ML NEB IH PRN (10:46)
--- NOTE | 2022-10-07 11:10 | XRAY ---
Indication: Abdomen pain, weakness, diarrhea. Comparison: January 06, 2022 PA/lateral chest is now clear again with incidental tiny left base calcified granuloma. Heart not enlarged. Bony thorax intact again with osteopenia, mild degenerative changes, and minimal dextroscoliosis. Impression: Nonacute chest with chronic features.
--- NOTE | 2022-10-07 11:10 | XRAY ---
Indication: Abdomen pain, weakness, diarrhea. Comparison: None KUB nonacute and nonobstructed with incidental cholecystomy clips. Solid organs unremarkable. Osseous structures intact with osteopenia and mild degenerative changes.
[2022-10-07 11:12] LABS: ALKALINE PHOSPHATASE 108 U/L (38-126); AMYLASE 74 U/L (30-110); ANION GAP 16.9 MEQ/L (5-15); BLOOD UREA NITROGEN 22 mg/dL (9-20); CHLORIDE 106 mmol/L (98-107); Calcium 8.6 mg/dL (8.4-10.2); Carbon Dioxide 19 mmol/L (22-30); Creatinine 1 1.37 mg/dL (0.66-1.25); Glucose 120 mg/dL (74-106); LIPASE 154 U/L (23-300); Potassium 3.3 mmol/L (3.5-5.1); SGOT/AST 24 U/L (17-59); SGPT/ALT 24 U/L (0-50); SODIUM 139 mmol/L (137-145); TROPONIN < 0.012 ng/mL (0.000-0.034); Total Protein 7.3 g/dL (6.3-8.2)
[2022-10-07] MEDS: Lactated Ringers 1,000 ML IV SCH ×2 (12:09→21:13)
[2022-10-07] MEDS ORDERED: Klor Con PO SCH (14:00)
[2022-10-07] MEDS: Klor Con PO SCH ×4 (16:09→22:43)
[2022-10-07 18:24] LABS: INFLUENZA A NEGATIVE (NEGATIVE); INFLUENZA B NEGATIVE (NEGATIVE); RESPIRATORY SYNCTIAL VIRUS NEGATIVE (NEGATIVE); SARS-CoV-2 Xpert Express NEGATIVE (NEGATIVE)
[2022-10-07] MEDS ORDERED: ELIQUIS 2.5 MG TABLET PO ONE (22:00)
[2022-10-07] MEDS ORDERED: ZOCOR 20MG PO SCH (22:10)
[2022-10-08 05:59] LABS: ANION GAP 10.6 MEQ/L (5-15); BLOOD UREA NITROGEN 16 mg/dL (9-20); CHLORIDE 108 mmol/L (98-107); Carbon Dioxide 22 mmol/L (22-30); Creatinine 1 1.16 mg/dL (0.66-1.25); EST GLOMERULAR FILTRATION RATE > 60.0 ML/MIN; Glucose 105 mg/dL (74-106); Potassium 3.9 mmol/L (3.5-5.1); SODIUM 137 mmol/L (137-145)
[2022-10-08 06:15] LABS: 027 TOX PROD PRESUMPTIVE NEGATIVE (NEGATIVE); TOXIGENIC C. DIFF ORG NEGATIVE (NEGATIVE)
[2022-10-08] MEDS ORDERED: Ventolin Hfa MDI IH PRN (07:35)
[2022-10-08] MEDS: Lactated Ringers 1,000 ML IV SCH ×2 (07:36→20:14)
[2022-10-08] MEDS ORDERED: VENTOLIN COMMON CANISTER IH PRN (07:41)
[2022-10-08] MEDS ORDERED: NON-FORMULARY ITEM (Fluticasone/Vilanterol [Breo Ellipta 200-25 Mcg Inh] 1 EACH Blst.W.Dev PO SCH (10:00)
[2022-10-08] MEDS ORDERED: NON-FORMULARY ITEM (Apixaban [Eliquis] 5 MG Tab.Ds.Pk) PO SCH (10:00)
[2022-10-08] MEDS: ECOTRIN 81 MG PO SCH (10:15)
[2022-10-08] MEDS: ELIQUIS 2.5 MG TABLET PO SCH ×2 (10:16→21:51)
[2022-10-08] MEDS: Toprol-Xl 25MG Tablets PO SCH (10:16)
--- NOTE | 2022-10-08 11:42 | PCM.HP.ADD ---
Addendum to History & Physical - History & Physical Addendum Addendum to History & Physical: This certifies that the History & Physical in the electronic chart reflects the current health status of the patient. If there are changes in the H&P these changes/exceptions are listed as follows.
--- NOTE | 2022-10-08 12:42 | PCM.NOTE ---
Date and Time: 10/08/22 1237 Subjective Assessment: Last night, per RN, pt had green liquid stool and abd cramps, 11/03. He is feeling "about the same" (as yesterday) although he has tolerated some po and denied abd pain. He is oriented to place and to month, but does not know the year. Said PT came to work with him yesterday. Last colonoscopy > 5 yrs ago. - Review of Systems Constitutional: Weakness, No Fever Objective Exam General Appearance: no apparent distress, alert Neurologic Exam: alert, cooperative, other (somewhat limited affect as yesterday) Skin Exam: normal color, warm, dry, No rash Eye Exam: eyes nml inspection Ears, Nose, Throat Exam: moist mucous membranes Neck Exam: normal inspection Respiratory Exam: normal breath sounds, lungs clear, No crackles/rales, No rhonchi, No wheezing Cardiovascular Exam: regular rate/rhythm, normal heart sounds, No murmur Gastrointestinal/Abdomen Exam: soft, normal bowel sounds, tenderness (periumbilical), No distention, No mass, No guarding, No rebound Extremity Exam: normal inspection, No pedal edema, No swelling Back Exam: normal inspection, No rash OBJECTIVE DATA Vital Signs: Vital Signs - 24 hr Temp Pulse Resp BP Pulse Ox 10/08/22 07:19 98.0 F 75 16 122/65 93 L 10/08/22 04:00 98.4 F 76 20 136/62 95 10/07/22 23:26 98.6 F 83 22 140/73 95 10/07/22 20:00 98.4 F 77 18 120/69 95 10/07/22 19:51 99.5 F 104 H 16 118/56 92 L 10/07/22 19:00 104 H 16 92 L 10/07/22 16:00 99.5 F 73 17 118/56 92 L Intake and Output: Intake & Output 10/06/22 10/07/22 10/08/22 10/09/22 11:59 11:59 11:59 11:59 Intake Total 2866 Balance 2866 Weight 79.8 kg Lab Results: Lab Results-Last 24 Hours 10/07/22 10/07/22 10/08/22 Range/Units 17:15 20:10 04:34 Sodium (137-145) mmol/L Potassium 3.9 (3.5-5.1) mmol/L Chloride (98-107) mmol/L Carbon Dioxide (22-30) mmol/L Anion Gap (5-15) MEQ/L BUN (9-20) mg/dL Creatinine (0.66-1.25) mg/dL Estimated GFR ML/MIN Glucose (74-106) mg/dL Calcium (8.4-10.2) mg/dL Magnesium (1.6-2.3) mg/dL C. difficile Screen NEGATIVE (NEGATIVE) C.difficile [id number] PRESUMPTIVE NEGATIVE (NEGATIVE) Influenza Type A Ag NEGATIVE (NEGATIVE) Influenza Type B Ag NEGATIVE (NEGATIVE) RSV (PCR) NEGATIVE (NEGATIVE) SARS-CoV-2 (PCR) NEGATIVE (NEGATIVE) 10/08/22 Range/Units 04:51 Sodium 137 (137-145) mmol/L Potassium 3.9 (3.5-5.1) mmol/L Chloride 108 H (98-107) mmol/L Carbon Dioxide 22 (22-30) mmol/L Anion Gap 10.6 (5-15) MEQ/L BUN 16 (9-20) mg/dL Creatinine 1.16 (0.66-1.25) mg/dL Estimated GFR > 60.0 ML/MIN Glucose 105 (74-106) mg/dL Calcium 8.0 L (8.4-10.2) mg/dL Magnesium 2.0 (1.6-2.3) mg/dL C. difficile Screen (NEGATIVE) C.difficile [id number] (NEGATIVE) Influenza Type A Ag (NEGATIVE) Influenza Type B Ag (NEGATIVE) RSV (PCR) (NEGATIVE) SARS-CoV-2 (PCR) (NEGATIVE) Radiology Exams: Radiology Procedures Category Date Time Status ABDOMEN AND PELVIS W&WO CONTRA [CT] Routine Exams 10/08/22 11:40 Ordered CHEST 2 VIEWS (PA AND LAT) Stat Exams 10/07/22 10:26 Completed KUB Stat Exams 10/07/22 10:26 Completed Multi-Disciplinary Progress Notes: Multi-Disciplinary Progress Notes 10/08/22 11:47 Case Management Note by Xiomara Lei S/W PATIENT ABOUT OPTIONS WITH [facility]. HE STATED HE HAS NO PREFERENCE IN COMPANY. REFERRAL [facility] TO [facility] THEY WILL NEED NOTIFIED AT TIME OF DC AT [phone]. THEY WILL NEED FAXED THE DC INSTRUCTIONS, DC MED LIST AND DC SUMMARY (IF AVAILABLE) FAXED TO THEM AT [phone] Initialized on 10/08/22 11:47 - END OF NOTE 10/08/22 11:26 Case Management Note by Xiomara Lei ROLLATOR ORDERED THRU [facility] USING [facility] SUGGESTED BY PHYSICAL THERAPY. DELIVERY REQUESTED FROM KATHERINE (HAN REP) TO [facility] TODAY PRIOR TO DC. HE VERIFIED UNDERSTANDING. Initialized on 10/08/22 11:26 - END OF NOTE Assessment/Plan (1) Dehydration Current Visit: Yes Status: Acute Assessment & Plan: Improved - eGFR 54 on admission and > 60 this morning. Code(s): E86.0 - DEHYDRATION (2) Abdominal pain Current Visit: Yes Status: Acute Qualifiers: Abdominal location: periumbilical Qualified Code(s): R10.33 - Periumbilical pain Assessment & Plan: CT abd/pelvis Code(s): R10.9 - UNSPECIFIED ABDOMINAL PAIN (3) Weakness Current Visit: No Status: Acute Assessment & Plan: PT consulting, thank you Code(s): R53.1 - WEAKNESS (4) Diarrhea Current Visit: No Status: Chronic Qualifiers: Diarrhea type: unspecified type Assessment & Plan: C. diff neg Code(s): R19.7 - DIARRHEA, UNSPECIFIED
--- NOTE | 2022-10-08 13:47 | XRAY ---
Indication: Abdominal pain/tenderness. Multiple contiguous axial images obtained through the abdomen and pelvis prior to and following 80 cc Isovue 370 contrast as ordered. Comparison: June 24, 2021 Lung bases again demonstrates mild bibasilar dependent atelectasis more than before. Stable posterior left base calcified granuloma. Heart not enlarged. New small hiatal hernia. Noncontrasted images again demonstrates tiny splenic calcified granulomas, fatty liver, and cholecystectomy clips. No new visceral calcifications/calculi. Noncontrasted stomach and bowel loops nonobstructed with normal appendix. Colon now demonstrates mild fluid distention throughout including rectum with fluid leveling favoring diarrhea. No free fluid/air. Postcontrast images demonstrates normal visceral enhancement and renal excretion. Remaining liver, pancreas, spleen, adrenal glands, kidneys, ureters, and bladder are unremarkable. There remains mild scattered aortoiliac calcifications. No AAA or left logic retroperitoneal lymphadenopathy. Osseous structures intact again with minimal degenerative changes throughout the spine. Stable small fatty right inguinal hernia. Impression: 1. New small hiatal hernia and colonic diarrhea. 2. Again chronic findings including fatty liver, small fatty right inguinal hernia, chronic bony findings, arteriosclerotic disease, and old granulomatous disease. 3. Remaining CT abdomen/pelvis with and without contrast exam is negative.
[2022-10-08] MEDS ORDERED: ZOCOR 20MG PO SCH ×2 (22:00)
[2022-10-08 23:42] LABS: Appearance Clear (Clear); Bilirubin Negative (Negative); Blood Negative (Negative); Glucose, Urine Negative (Negative); Ketones Negative (Negative); Leukocyte Esterase Negative (Negative); Nitrite Negative (Negative); Ph 5.5 (4.6-8.0); Protein,Urine Dip Negative (Negative); Specific Gravity >=1.030 (1.005-1.030); Urobilinogen 0.2 mg/dL (0.2)
[2022-10-09 00:03] LABS: Epithelial Cells Rare /HPF (None Seen); RBC NONE SEEN /HPF (0-5); WBC NONE SEEN /HPF (0-5)
[2022-10-09 00:04] LABS: ADD URINE CULTURE? NO (NO); Bacteria None Seen /HPF (None Seen)
[2022-10-09] MEDS: Lactated Ringers 1,000 ML IV SCH (05:50)
--- NOTE | 2022-10-09 08:37 | PCM.DS ---
Discharge Summary Date of Admission: 10/07/22 09:40 Admitting Physician: KENAN MONTILLA Primary Care Provider: KENAN MONTILLA Allergies Allergies levofloxacin Allergy (Intermediate, Verified 09/30/22 23:24) [facility] Summary - Hospital Course Hospital Course: Pt is a 72 yo male pt of mine from [facility] with CAD, COPD, HTN, HLD, hypothyroidism, renal insufficiency, sz, and sick sinus syndrome who was admitted directly from office with dehydration and weakness. He was put on IV fluids and PT consulted as well. He wasn't tolerating much po on admission, but was eating well yesterday and today. With PT he was a standby assist. He had some abd tenderness yesterday; CT abd/pelvis was nonacute. He has labs pending this morning, but if nothing is acute he will be discharged to home today. He does have HHC now. His did mention he had been feeling cold then sweaty at night; will check TSH. He will f/u with me in 1 week. - Vitals & Intake/Output Vital Signs: Vital Signs Temperature 97.3 F 10/09/22 03:54 Pulse Rate 56 L 10/09/22 03:54 Respiratory Rate 24 10/09/22 03:54 Blood Pressure 162/67 10/09/22 03:54 O2 Sat by Pulse Oximetry 93 L 10/09/22 03:54 Intake & Output: Intake & Output 10/06/22 10/07/22 10/08/22 10/09/22 11:59 11:59 11:59 11:59 Intake Total 2866 3368 Output Total 400 Balance 2866 2968 Weight 79.8 kg - Lab Result Diagrams: 10/07/22 10:10 10/08/22 04:51 Lab Results-Last 24 Hrs: Lab Results-Last 24 Hours 10/08/22 Range/Units 23:33 Urine Color Yellow (Yellow) Urine Appearance Clear (Clear) Urine pH 5.5 (4.6-8.0) Ur Specific [place] >=1.030 A (1.005-1.030) Urine Protein Negative (Negative) Urine Glucose (UA) Negative (Negative) mg/dL Urine Ketones Negative (Negative) Urine Blood Negative (Negative) Urine Nitrite Negative (Negative) Urine Bilirubin Negative (Negative) Urine Urobilinogen 0.2 (0.2) mg/dL Ur Leukocyte Esterase Negative (Negative) Urine Microscopic RBC NONE SEEN (0-5) /HPF Urine Microscopic WBC NONE SEEN (0-5) /HPF Ur Epithelial Cells Rare (None Seen) /HPF Urine Bacteria None Seen (None Seen) /HPF Urine Culture Reflexed NO (NO) - Radiology Exams Ordered Rad Exams-Entire Visit: Radiology Procedures Category Date Time Status ABDOMEN AND PELVIS W&WO CONTRA [CT] Routine Exams 10/08/22 11:40 Completed CHEST 2 VIEWS (PA AND LAT) Stat Exams 10/07/22 10:26 Completed KUB Stat Exams 10/07/22 10:26 Completed - Procedures and Test Procedures and Tests throughout Hospitalization: Therapy Orders & Screens 10/07/22 10:26 EKG STAT Comment: Diagnosis: palpitations 10/07/22 10:51 Respiratory Therapy Assessment DAILY Comment: Diagnosis: palpitations 10/07/22 13:39 PT Eval & Treat (MD Order) ONCE Reason for Eval:: frequent falls lives at home with who is blind and cannot help him when falls occur Diagnosis: palpitations Discharge Exam General Appearance: no apparent distress, alert Neurologic Exam: cooperative, other (limited affect as usual) Eye Exam: eyes nml inspection Ears, Nose, Throat Exam: moist mucous membranes Neck Exam: normal inspection Respiratory Exam: normal breath sounds, lungs clear, No crackles/rales, No rhonchi, No wheezing Cardiovascular Exam: regular rate/rhythm, normal heart sounds, No murmur Gastrointestinal/Abdomen Exam: soft, normal bowel sounds, No tenderness, No distention, No mass, No guarding, No rebound Back Exam: normal inspection, No rash Extremity Exam: normal inspection, No swelling, No tenderness Skin Exam: normal color, warm, dry, No rash Final Diagnosis/Problem List - Final Discharge Diagnosis/Problem (1) Dehydration Current Visit: Yes Status: Resolved Assessment & Plan: Doing well now. Discharge to home today. Unknown etiology; perhaps had a viral illness that has resolved. Code(s): E86.0 - DEHYDRATION (2) Weakness Current Visit: No Status: Resolved Assessment & Plan: much better; home with [facility] for PT. TSH pending. Code(s): R53.1 - WEAKNESS (3) Abdominal pain Current Visit: Yes Status: Resolved Code(s): R10.9 - UNSPECIFIED ABDOMINAL PAIN (4) Diarrhea Current Visit: No Status: Resolved Assessment & Plan: It stopped yesterday per pt. Code(s): R19.7 - DIARRHEA, UNSPECIFIED - Discharge Disposition: Home, Self-Care Condition: Stable Prescriptions: Continue Aspirin EC 81 mg [Ecotrin 81 mg] 81 mg PO DAILY Apixaban [Eliquis] 5 mg PO BID Albuterol 8 gm Mdi Hfa [Ventolin Hfa MDI] 2 puff IH QDP PRN PRN Reason: Shortness Of Breath Atorvastatin Calcium 80 mg PO QHS Fluticasone/Vilanterol [Breo Ellipta 200-25 Mcg INH] 1 puff PO DAILY Metoprolol Succinate 25 mg Xl* [Toprol-Xl 25MG Tablets] 12.5 mg PO DAILY Additional Instructions: HOME HEALTH CARE SET UP WITH [facility]. THEY WILL CONTACT YOU TO ARRANGE A TIME TO COME SEE YOU. THEIR PHONE NUMBER IS [phone] Follow up with: KENAN MONTILLA [Primary Care Provider] -
[2022-10-09] MEDS: ECOTRIN 81 MG PO SCH (08:52)
[2022-10-09] MEDS: Toprol-Xl 25MG Tablets PO SCH (08:53)
[2022-10-09] MEDS: ELIQUIS 2.5 MG TABLET PO SCH (08:53)
[2022-10-09 09:31] LABS: Absolute Neutrophil Ct (ANC) 1.93 x10^3/uL (1.4-6.9); BASOPHIL % 0.5 % (0.0-0.4); Basophil (Absolute #) 0.02 x10^3/uL (0-0.4); Eosinophil % 14.5 % (0.00-5.0); Eosinophil (Absolute #) 0.62 x10^3/uL (0-0.5); Hematocrit 39.7 % (42-50); Hemoglobin 13.2 g/dL (12.5-18.0); IMMATURE GRAN # 0.01 x10^3u/L (0.00-0.03); IMMATURE GRAN % 0.2 % (0.00-0.4); Lymphocyte (Absolute #) 1.53 x10^3/uL (1.0-4.6); Lymphocytes % 35.7 % (24.0-44.0); Mean Cell Volume 94.5 fL (78-100); Mean Corpuscular Hemoglobin 31.4 pg (26-32); Mean Corpuscular Hgb Concent. 33.2 g/dL (32-36); Mean Platelet Volume 9.7 fL (7.5-11.0); Monocyte (Absolute #) 0.18 x10^3/uL (0.0-1.3); Monocytes % 4.2 % (0.0-12.0); Neutrophil % 44.9 % (36.0-66.0); Platelet Count 149 x10^3/uL (150-450); Red Cell Distribution Width 12.7 % (11.5-14.0); White Blood Count 4.3 x10^3/uL (4.0-10.5)
[2022-10-09 09:42] LABS: ALKALINE PHOSPHATASE 87 U/L (38-126); ANION GAP 13.6 MEQ/L (5-15); BLOOD UREA NITROGEN 11 mg/dL (9-20); CHLORIDE 108 mmol/L (98-107); Calcium 7.6 mg/dL (8.4-10.2); Carbon Dioxide 20 mmol/L (22-30); EST GLOMERULAR FILTRATION RATE > 60.0 ML/MIN; Glucose 160 mg/dL (74-106); SGOT/AST 25 U/L (17-59); SGPT/ALT 25 U/L (0-50); SODIUM 138 mmol/L (137-145); Total Protein 5.5 g/dL (6.3-8.2)
[2022-10-09 09:43] LABS: Potassium 3.1 mmol/L (3.5-5.1)
[2022-10-09] MEDS ORDERED: PATIENT OWN MEDICATION IH SCH (10:00)
[2022-10-09 10:25] VITALS: PULSE 60; O2SAT 94
[2022-10-09 11:25] VITALS: BP 136/60
[2022-10-09] MEDS: Klor Con PO SCH ×4 (11:26→15:59)
== END 2022-10-09 16:26 | disposition home health service (06) ==
LOC: MED SURG 09:40
PROVIDERS: ADMIT Family Medicine; ATTEND Family Medicine
DX: E86.0 Dehydration (principal); R53.1 Weakness; R10.9 Unspecified abdominal pain; R19.7 Diarrhea, unspecified; D64.9 Anemia, unspecified; I10 Essential (primary) hypertension; I48.91 Unspecified atrial fibrillation; I25.10 Atherosclerotic heart disease of native coronary artery without angina pectoris; E78.5 Hyperlipidemia, unspecified; E03.9 Hypothyroidism, unspecified; J44.9 Chronic obstructive pulmonary disease, unspecified; N17.9 Acute kidney failure, unspecified; R11.0 Nausea; R68.83 Chills (without fever); R29.6 Repeated falls; R00.2 Palpitations; Z79.01 Long term (current) use of anticoagulants; Z20.828 Contact with and (suspected) exposure to other viral communicable diseases; Z79.899 Other long term (current) drug therapy
CPT/HCPCS: 0241U; 36415; 71046; 74018; 74178; 80048; 80053; 81001; 82150; 83690; 83735; 84132; 84443; 84484; 85025; 87493; 93005; 93268; 94760; 97110; 97161; 97530; G0378; A9270-GY

== ENCOUNTER 2023-01-14 17:28 | Observation (INO) | payer MEDICARE ==
[2023-01-14] MEDS ORDERED: BABY ASPIRIN 81 MG CHEW PO ONE (17:35)
[2023-01-14] MEDS ORDERED: BABY ASPIRIN 81 MG CHEW ONE (17:47)
[2023-01-14 17:54] LABS: Absolute Neutrophil Ct (ANC) 4.73 x10^3/uL (1.4-6.9); BASOPHIL % 0.6 % (0.0-0.4); Basophil (Absolute #) 0.05 x10^3/uL (0-0.4); Eosinophil % 7.8 % (0.00-5.0); Hematocrit 44.8 % (42-50); Hemoglobin 15.1 g/dL (12.5-18.0); IMMATURE GRAN # 0.02 x10^3u/L (0.00-0.03); IMMATURE GRAN % 0.2 % (0.00-0.4); Lymphocyte (Absolute #) 2.68 x10^3/uL (1.0-4.6); Lymphocytes % 29.7 % (24.0-44.0); Mean Cell Volume 95.7 fL (78-100); Mean Corpuscular Hemoglobin 32.3 pg (26-32); Mean Corpuscular Hgb Concent. 33.7 g/dL (32-36); Mean Platelet Volume 10.2 fL (7.5-11.0); Monocyte (Absolute #) 0.83 x10^3/uL (0.0-1.3); Monocytes % 9.2 % (0.0-12.0); Neutrophil % 52.5 % (36.0-66.0); Platelet Count 163 x10^3/uL (150-450); Red Blood Count 4.68 x10^6/uL (4.1-5.6); Red Cell Distribution Width 13.8 % (11.5-14.0)
[2023-01-14 18:09] LABS: ALBUMIN 4.1 g/dL (3.5-5.0); ALKALINE PHOSPHATASE 102 U/L (38-126); ANION GAP 16.1 MEQ/L (5-15); BLOOD UREA NITROGEN 16 mg/dL (9-20); CHLORIDE 109 mmol/L (98-107); Calcium 8.5 mg/dL (8.4-10.2); Carbon Dioxide 19 mmol/L (22-30); Creatinine 1 1.07 mg/dL (0.66-1.25); EST GLOMERULAR FILTRATION RATE > 60.0 ML/MIN; Glucose 111 mg/dL (74-106); Potassium 3.8 mmol/L (3.5-5.1); SGOT/AST 29 U/L (17-59); SGPT/ALT 27 U/L (0-50); SODIUM 140 mmol/L (137-145); Total Protein 7.3 g/dL (6.3-8.2)
[2023-01-14 18:30] LABS: INFLUENZA A NEGATIVE (NEGATIVE); INFLUENZA B NEGATIVE (NEGATIVE); RESPIRATORY SYNCTIAL VIRUS NEGATIVE (NEGATIVE); SARS-CoV-2 Xpert Express NEGATIVE (NEGATIVE)
--- NOTE | 2023-01-14 18:40 | ERPHSYRPT ---
- History of Present Illness Source: patient Exam Limitations: no limitations Patient Subjective Stated Complaint: C/O chest pain that started approx 90 minutes prior to arriving in the ER. States he was not exerting himself when the pain started. Triage Nursing Assessment: Patient ambulated back to ER. Patient SOB; labored breathing. No cough. He is alert and oriented. Skin tone normal. BLACK WNL. NO edema. Hx Tetanus, Diphtheria Vaccination/Date Given: Yes Hx Influenza Vaccination/Date Given: Yes Hx Pneumococcal Vaccination/Date Given: No Immunizations Up to Date: Yes <KT RODRIGUEZ - Last Filed: 01/14/23 18:33> <YAHAIRA BASHIR - Last Filed: 01/14/23 21:49> - History of Present Illness Time Seen by Provider: 01/14/23 17:35 Physician History: Patient here with left-sided chest pain. Started 90 minutes prior to arrival. Patient has known coronary artery disease. He is on Eliquis. He is unsure why he is not on Eliquis. Reviewing chart I see no past medical history for atrial fibrillation. Initial EKG was read as a junctional rhythm. However does not appear to be atrial fibrillation. Repeat EKG approximately 30 minutes later demonstrates sinus rhythm. Most likely sinus rhythm on the first EKG just read as junctional rhythm via computer. Patient has no known history of blood clots. No falls or other trauma. Chest pain started while moving furniture around the house. Therefore, it is exertional. He sees Dr. Poe at [facility]. (KT RODRIGUEZ) Allergies/Adverse Reactions: levofloxacin Allergy (Intermediate, Verified 01/01/23 11:02) Hives Home Medications: Aspirin EC 81 mg [Ecotrin 81 mg] 81 mg PO DAILY 04/15/19 [History] Apixaban [Eliquis] 5 mg PO BID 02/12/21 [History] Atorvastatin Calcium 80 mg PO QHS 02/07/22 [History] Metoprolol Succinate 25 mg Xl* [Toprol-Xl 25MG Tablets] 25 mg PO DAILY 10/07/22 [History] Cholecalciferol (Vitamin D3) [Vitamin D3] 1 tab PO UD 01/01/23 [History] Levothyroxine Sodium 75 Mcg [Synthroid 75 Mcg] 75 mg PO DAILY 01/01/23 [History] Cyanocobalamin (Vitamin B-12) [Cyanocobalamin Injection] 1 ml SQ DIRECTIONS UNKNOWN 01/14/23 [History] Fluticasone/Vilanterol [Breo Ellipta 200-25 Mcg INH] 1 puff PO DAILY 01/14/23 [History] Travel Risk - International Travel Have you traveled outside of the country in past 3 weeks: No - Coronavirus Screening Are you exhibiting any of the following symptoms?: No Close contact with a COVID-19 positive Pt in past 14-21 Days: No - Vaccine Status Have you recieved a Covid-19 vaccination: No <KT RODRIGUEZ - Last Filed: 01/14/23 18:33> - Review of Systems Constitutional: No Fever, No Chills Eyes: No Symptoms Ears, Nose, & Throat: No Symptoms Respiratory: Dyspnea, No Cough Cardiac: Chest Pain, No Edema, No Syncope Abdominal/Gastrointestinal: No Abdominal Pain, No Nausea, No Vomiting, No Diarrhea Genitourinary Symptoms: No Dysuria Musculoskeletal: No Back Pain, No Neck Pain Skin: No Rash Neurological: No Dizziness, No Focal Weakness, No Sensory Changes Psychological: No Symptoms Endocrine: No Symptoms All Other Systems: Reviewed and Negative <KT RODRIGUEZ - Last Filed: 01/14/23 18:33> - Past Medical History Pertinent Past Medical History: Yes Neurological History: No Pertinent History ENT History: No Pertinent History Cardiac History: Coronary Artery Disease, High Cholesterol, Hypertension Respiratory History: COPD, Pneumonia Endocrine Medical History: Hypothyroidism Musculoskeletal History: Osteoarthritis GI Medical History: Gallbladder Disease History: Renal Disease Psycho-Social History: No Pertinent History Male Reproductive Disorders: Prostate Problems Other Medical History: SX HX: CARDIAC STENTS X 3; Operations Dispatcher: Dr. 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 2022 "pt states has had several removed and has 2 places presently that need removed". nerve surgery to left foot around the ankle in Apr, 2022. - Social History Smoking Status: Never smoker Exposure to second hand smoke: No Alcohol Use: None Drug Use: none Patient Lives Alone: No () Significant Family History: no pertinent family hx <KT RODRIGUEZ - Last Filed: 01/14/23 18:33> - Physical Exam General Appearance: no apparent distress, alert Eye Exam: PERRL/EOMI, eyes nml inspection Ears, Nose, Throat Exam: normal ENT inspection, TMs normal, pharynx normal, moist mucous membranes Neck Exam: normal inspection, non-tender, supple, full range of motion Respiratory Exam: normal breath sounds, lungs clear, No respiratory distress Cardiovascular Exam: regular rate/rhythm, normal heart sounds, normal peripheral pulses Gastrointestinal/Abdomen Exam: soft, normal bowel sounds, No tenderness, No mass Back Exam: normal inspection, normal range of motion, No CVA tenderness, No vertebral tenderness Extremity Exam: normal inspection, normal range of motion, pelvis stable Neurologic Exam: alert, oriented x 3, cooperative, No motor deficits Skin Exam: normal color, warm, dry, No rash Lymphatic Exam: No adenopathy SpO2: 96 <KT RODRIGUEZ - Last Filed: 01/14/23 18:33> - Nursing Vital Signs Nursing Vital Signs: Initial Vital Signs Temperature 96.8 F 01/14/23 17:30 Pulse Rate 107 H 01/14/23 17:30 Respiratory Rate 24 01/14/23 17:30 Blood Pressure 116/79 01/14/23 17:30 O2 Sat by Pulse Oximetry 94 L 01/14/23 17:30 Pain Scale Pain Intensity 0 - Course Nursing assessment & vital signs reviewed: Yes EKG Interpreted by Me: Sinus Rhythm (Initial EKG read as junctional rhythm. However beats appears steady, normal. Most likely sinus rhythm. Repeat EKG shows normal sinus rhythm.) <KT RODRIGUEZ - Last Filed: 01/14/23 18:33> - CT Exams Chest CT Interpretation: Tele-radiologist Report (CTA chest continued normal CTA chest compared to 01/02/2021. CT abdomen pelvis continued negative, CTA abdomen pelvis compared to 10/08/2022. No new acute findings) <YAHAIRA BASHIR - Last Filed: 01/14/23 21:49> Ordered Tests: Active Orders 24 hr Category Date Time Status Office Chair Assembler STAT Care 01/14/23 17:34 Active EKG-ER Only STAT Care 01/14/23 17:33 Active IV Insertion STAT Care 01/14/23 17:33 Active CHEST 2 VIEWS (PA AND LAT) Stat Exams 01/14/23 17:34 Taken CTA ABD/PEL W AND/OR W/O CONTR [CT] Stat Exams 01/14/23 18:28 Taken CTA CHEST W AND/OR WO [CT] Stat Exams 01/14/23 18:27 Taken CBC W DIFF Stat Lab 01/14/23 17:51 Completed CMP Stat Lab 01/14/23 17:51 Completed D-DIMER QUANTITATIVE Stat Lab 01/14/23 17:51 Completed NT PRO BNPII Stat Lab 01/14/23 17:51 Completed TROPONIN Q4H Lab 01/14/23 17:51 Completed TROPONIN Q4H Lab 01/14/23 21:45 Ordered TROPONIN Q4H Lab 01/15/23 01:45 Ordered Transfer Order Routine Transfer 01/14/23 Ordered Medication Summary Discontinued Medications Generic Name Dose Route Start Last Admin Trade Name Freq PRN Reason Stop Dose Admin Aspirin 324 mg 01/14/23 17:35 01/14/23 17:47 Aspirin 81 Mg Tab.Chew PO 01/14/23 17:36 324 mg STAT ONE Administration Aspirin Confirm 01/14/23 17:47 Aspirin 81 Mg Tab.Chew Administered 01/14/23 17:48 Dose 324 mg .ROUTE .STK-MED ONE Nitroglycerin 1 gm 01/14/23 21:17 01/14/23 21:26 Nitroglycerin 1 Gm Packet TOP 01/14/23 21:18 1 gm STAT ONE Administration Nitroglycerin Confirm 01/14/23 21:26 Nitroglycerin 1 Gm Packet Administered 01/14/23 21:27 Dose 1 gm .ROUTE .STK-MED ONE Lab/Rad Data: Laboratory Result Diagrams 01/14/23 17:51 01/14/23 17:51 Laboratory Results 01/14/23 01/14/23 01/14/23 Range/Units 17:51 17:51 17:51 WBC (4.0-10.5) x10^3/uL RBC (4.1-5.6) x10^6/uL Hgb (12.5-18.0) g/dL Hct (42-50) % MCV (78-100) fL MCH (26-32) pg MCHC (32-36) g/dL RDW (11.5-14.0) % Plt Count (150-450) x10^3/uL MPV (7.5-11.0) fL Gran % (36.0-66.0) % Immature Gran % (Auto) (0.00-0.4) % Nucleat RBC Rel Count (0.00-0.1) % Eos # (Auto) (0-0.5) x10^3/uL Immature Gran # (Auto) (0.00-0.03) x10^3u/L Absolute Lymphs (auto) (1.0-4.6) x10^3/uL Absolute Monos (auto) (0.0-1.3) x10^3/uL Absolute Nucleated RBC (0.00-0.01) x10^3u/L Lymphocytes % (24.0-44.0) % Monocytes % (0.0-12.0) % Eosinophils % (0.00-5.0) % Basophils % (0.0-0.4) % Absolute Granulocytes (1.4-6.9) x10^3/uL Basophils # (0-0.4) x10^3/uL D-Dimer (0.0-0.50) mg/L Sodium (137-145) mmol/L Potassium (3.5-5.1) mmol/L Chloride (98-107) mmol/L Carbon Dioxide (22-30) mmol/L Anion Gap (5-15) MEQ/L BUN (9-20) mg/dL Creatinine (0.66-1.25) mg/dL Estimated GFR ML/MIN Glucose (74-106) mg/dL Calcium (8.4-10.2) mg/dL Total Bilirubin (0.2-1.3) mg/dL AST (17-59) U/L ALT (0-50) U/L Alkaline Phosphatase (38-126) U/L Troponin I < 0.012 (0.000-0.034) ng/mL NT-Pro-B Natriuret Pep 39.1 (<300) pg/mL Serum Total Protein (6.3-8.2) g/dL Albumin (3.5-5.0) g/dL Influenza Type A Ag NEGATIVE (NEGATIVE) Influenza Type B Ag NEGATIVE (NEGATIVE) RSV (PCR) NEGATIVE (NEGATIVE) SARS-CoV-2 (PCR) NEGATIVE (NEGATIVE) 01/14/23 01/14/23 01/14/23 Range/Units 17:51 17:51 17:51 WBC 9.0 (4.0-10.5) x10^3/uL RBC 4.68 (4.1-5.6) x10^6/uL Hgb 15.1 (12.5-18.0) g/dL Hct 44.8 (42-50) % MCV 95.7 (78-100) fL MCH 32.3 H (26-32) pg MCHC 33.7 (32-36) g/dL RDW 13.8 (11.5-14.0) % Plt Count 163 (150-450) x10^3/uL MPV 10.2 (7.5-11.0) fL Gran % 52.5 (36.0-66.0) % Immature Gran % (Auto) 0.2 (0.00-0.4) % Nucleat RBC Rel Count 0.0 (0.00-0.1) % Eos # (Auto) 0.70 H (0-0.5) x10^3/uL Immature Gran # (Auto) 0.02 (0.00-0.03) x10^3u/L Absolute Lymphs (auto) 2.68 (1.0-4.6) x10^3/uL Absolute Monos (auto) 0.83 (0.0-1.3) x10^3/uL Absolute Nucleated RBC 0.00 (0.00-0.01) x10^3u/L Lymphocytes % 29.7 (24.0-44.0) % Monocytes % 9.2 (0.0-12.0) % Eosinophils % 7.8 H (0.00-5.0) % Basophils % 0.6 (0.0-0.4) % Absolute Granulocytes 4.73 (1.4-6.9) x10^3/uL Basophils # 0.05 (0-0.4) x10^3/uL D-Dimer < 0.19 (0.0-0.50) mg/L Sodium 140 (137-145) mmol/L Potassium 3.8 (3.5-5.1) mmol/L Chloride 109 H (98-107) mmol/L Carbon Dioxide 19 L (22-30) mmol/L Anion Gap 16.1 H (5-15) MEQ/L BUN 16 (9-20) mg/dL Creatinine 1.07 (0.66-1.25) mg/dL Estimated GFR > 60.0 ML/MIN Glucose 111 H (74-106) mg/dL Calcium 8.5 (8.4-10.2) mg/dL Total Bilirubin 2.30 H (0.2-1.3) mg/dL AST 29 (17-59) U/L ALT 27 (0-50) U/L Alkaline Phosphatase 102 (38-126) U/L Troponin I (0.000-0.034) ng/mL NT-Pro-B Natriuret Pep (<300) pg/mL Serum Total Protein 7.3 (6.3-8.2) g/dL Albumin 4.1 (3.5-5.0) g/dL Influenza Type A Ag (NEGATIVE) Influenza Type B Ag (NEGATIVE) RSV (PCR) (NEGATIVE) SARS-CoV-2 (PCR) (NEGATIVE) - Progress Progress: improved Counseled pt/family regarding: lab results, diagnosis, need for follow-up, rad results <KT RODRIGUEZ - Last Filed: 01/14/23 18:33> <YAHAIRA BASHIR - Last Filed: 01/14/23 21:49> - Progress Progress Note: 01/14/23 18:38 differential diagnosis includes: PNA, STEMI, NSTEMI, other infection, musculoskeletal pain, pneumothorax - We'll obtain basic labs, fluids, EKG, troponin, chest x-ray -First troponin is negative. D-dimer is normal. Given that he is on Eliquis wi th chest pain we will obtain a CT a chest abdomen pelvis looking for an acute aortic dissection. - EKG shows no ST changes - my read. See full read below. - O2 saturations consistently greater than 95%. - CXR shows no pneumonia, pneumothorax - my read Reevaluation: Repeat EKG continues to show sinus rhythm without ST changes. CTA of the chest is pending at this point in time. Patient most likely will need to be admitted overnight for full cardiac rule out given history and risk factors. I have already discussed this with the patient and he is comfortable with the plan. Patient will be handed off to Dr. Bashir at 7 PM. He will follow-up on second troponin, CTA. He will appropriately disposition the patient per this follow- up. (KT RODRIGUEZ) Patient is 73-year-old male presents to our ED for evaluation of chest pain. Patient has a significant cardiac history including 3 cardiac stents. 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 Patient presents to our ED today for evaluation of chest pain that started while moving furniture. Physical exam essentially nonremarkable. Testing includes CBC CMP. Both are essentially nonremarkable. COVID test negative. D-dimer negative. proBNP negative troponin negative. Patient received CTA chest abdomen pelvis which also were negative. Patient received aspirin upon arrival. Patient also received Nitropaste for ongoing chest pain. In light of patient's cardiovascular risk factors patient was admitted for evaluation/serial cardiac enzymes. Case discussed with Dr. Al at 925pm, hospitalist who excepts admission to ob servation.Plan of care discussed with patient. He agrees to admission to [facility] for further evaluation and treatment. Complexity of problem addressed is moderate acute/complicated. No critical care time Complex of data reviewed and analyzed is Extensive. Testing ordered testing reviewed and analyzed by Dr. Bashir. Data reviewed correlated clinically. In light of patient's cardiovascular risk factors and elevated heart score the decision was made to admit patient for ongoing chest pain and further evaluation of acute coronary syndrome.Patient management and plan of care discussed with hospitalist who excepts admission to observation. Risk of complication and or risk of morbidity/mortality of patient management is high. Patient will require hospitalization for further evaluation and treatment. Time spent to admit patient is approximately 10 minutes. Vital stable. Plan Of care established via shared decision making. Patient voices no other complai nts or concerns at this time. Portions of this note were created with voice recognition technology. There may be grammatical, spelling, punctuation or sound alike errors 01/14/23 21:41 (YAHAIRA BASHIR) - Departure Critical Care Time: No <KT RODRIGUEZ - Last Filed: 01/14/23 18:33> - Departure Departure Disposition: Home <YAHAIRA BASHIR - Last Filed: 01/14/23 21:49> - Departure Clinical Impression: Chest pain, SOB (shortness of breath) Condition: Stable Referrals: KENAN MONTILLA [Primary Care Provider] - Follow up/PCP as directed
[2023-01-14] MEDS ORDERED: NITRO-BID 2% UD PACKETS TOP ONE (21:17)
[2023-01-14] MEDS ORDERED: NITRO-BID 2% UD PACKETS ONE (21:26)
[2023-01-14] MEDS ORDERED: Senokot-S Tablet PO PRN (22:15)
[2023-01-14] MEDS ORDERED: Zofran 4 MG/2 ML VIAL IV PRN (22:15)
[2023-01-14] MEDS ORDERED: MAALOX ES 30 ML UNIT DOSE PO PRN (22:15)
[2023-01-14] MEDS ORDERED: TYLENOL 325 MG PO PRN (22:15)
[2023-01-14] MEDS ORDERED: MILK OF MAGNESIA 30 ML PO PRN (22:15)
--- NOTE | 2023-01-14 23:13 | PCM.HP ---
History of Present Illness - Chief Complaint Chief Complaint: heart racing Date: 01/14/23 History of Present Illness: 73 y/o M with h/o CAD (PCI x3, last years ago), A-fib on Eliquis, COPD on PRN nocturnal O2, hypothyroidism, and recent hyperglycemia not on medications, presents with chest palpitations and diaphoresis. Note, history presented to me was slightly different from what was reported to ED physician. Patient reports that he was feeling sweaty and got up to move a fan to cool him down more, when he began to feel his heart racing. He sat down, but did not feel any better. He has his chronic dyspnea, that was unchanged. Denied associated nausea, numbness, or new dyspnea. Eventually had some bilateral thigh pain. Upon prompting by nurse, he eventually said he had some chest pain as well, but was unable to describe it. Did not seem to worsen with exertion or be relieved by rest. He did not try any medications to help it. Stated the feeling lasted a few hours until he arrived at the ED. States has been complaint with medications. States his PCP recently started him on metformin for glucose that was "one point too high", but it was stopped due to diarrhea and his PCP hasn't decided what to replace it with yet. Denies recent fevers, chills, sore throat, cough, abdominal pain, or diarrhea. - Review of Systems Constitutional: No Fever, No Chills, No Weakness Eyes: No Symptoms Ears, Nose, & Throat: No Symptoms Respiratory: Short Of Breath (chronic, unchanged), No Cough, No Orthopnea, No Wheezing Cardiac: Chest Pain, Palpitations, No Edema, No Syncope, No Orthopnea, No PND Abdominal/Gastrointestinal: No Abdominal Pain, No Nausea, No Vomiting, No Diarrhea Genitourinary Symptoms: No Symptoms Musculoskeletal: No Symptoms Skin: No Symptoms Neurological: No Symptoms Psychological: No Symptoms Endocrine: Excessive Sweating Hematologic/Lymphatic: No Symptoms Immunological/Allergic: No Symptoms Medications & Allergies Home Medications: Home Medication List Aspirin EC 81 mg [Ecotrin 81 mg] 81 mg PO DAILY 04/15/19 [History Confirme d 01/14/23] Apixaban [Eliquis] 5 mg PO BID 02/12/21 [History Confirmed 01/14/23] Atorvastatin Calcium 80 mg PO QHS 02/07/22 [History Confirmed 01/14/23] Metoprolol Succinate 25 mg Xl* [Toprol-Xl 25MG Tablets] 25 mg PO DAILY 10/07/22 [History Confirmed 01/14/23] Potassium Chloride Tab* [Klor Con] 10 meq PO DAILY 30 Days #30 tablet 10/09/22 [Rx Confirmed 01/14/23] Cholecalciferol (Vitamin D3) [Vitamin D3] 1 tab PO UD 01/01/23 [History Confirmed 01/14/23] Levothyroxine Sodium 75 Mcg [Synthroid 75 Mcg] 75 mg PO DAILY 01/01/23 [History Confirmed 01/14/23] Cyanocobalamin (Vitamin B-12) [Cyanocobalamin Injection] 1 ml SQ DIRECTIONS UNKNOWN 01/14/23 [History Confirmed 01/14/23] Fluticasone/Vilanterol [Breo Ellipta 200-25 Mcg INH] 1 puff PO DAILY 01/14/23 [History Confirmed 01/14/23] Allergies/Adverse Reactions: Allergies Allergy/AdvReac Type Severity Reaction Status Date / Time levofloxacin Allergy Intermediate Hives Verified 01/01/23 11:02 - Past Medical History Past Medical History: Yes Neurological History: No Pertinent History ENT History: No Pertinent History Cardiac History: Coronary Artery Disease, High Cholesterol, Hypertension Respiratory History: COPD (on oxygen at night as needed), Pneumonia Endocrine Medical History: Hypothyroidism Musculoskelatal History: Osteoarthritis GI Medical History: Gallbladder Disease History: Renal Disease Pyscho-Social History: No Pertinent History Male Reproductive Disorders: Prostate Problems Comment: SX HX: CARDIAC STENTS X 3; Tumbler Machine Operator: Dr. 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 2022 "pt states has had several removed and has 2 places presently that need removed". nerve surgery to left foot around the ankle in Apr, 2022. - Social History Smoking Status: Never smoker Exposure to second hand smoke: No Alcohol: None Drug Use: none Significant Family History: heart disease (father, in his 50s) - Physical Exam Vital Signs: Vital Signs - 24 hr Temp Pulse Resp BP BP Pulse Ox 01/14/23 22:00 69 21 124/72 93 L 01/14/23 21:30 66 17 122/78 94 L 01/14/23 21:00 69 20 126/75 94 L 01/14/23 20:30 66 17 122/69 94 L 01/14/23 20:00 66 15 118/71 92 L 01/14/23 19:59 70 12 93 L 01/14/23 19:50 71 19 92 L 01/14/23 19:40 73 19 93 L 01/14/23 19:34 73 16 93 L 01/14/23 18:40 96 01/14/23 18:30 84 19 126/76 93 L 01/14/23 18:00 76 125/71 96 01/14/23 17:30 96.8 F 82 19 116/79 116/79 93 L General Appearance: no apparent distress Neurologic Exam: alert, oriented x 3, normal mood/affect Eye Exam: eyes nml inspection Neck Exam: normal inspection Respiratory Exam: normal breath sounds (on room air), lungs clear, No respiratory distress Cardiovascular Exam: regular rate/rhythm, No murmur, No gallop, No edema Gastrointestinal/Abdomen Exam: soft, No tenderness, No distention Skin Exam: No rash Results - Labs Lab/Micro Results: Lab Results-Last 24 Hours 01/14/23 01/14/23 01/14/23 Range/Units 17:51 17:51 17:51 WBC 9.0 (4.0-10.5) x10^3/uL RBC 4.68 (4.1-5.6) x10^6/uL Hgb 15.1 (12.5-18.0) g/dL Hct 44.8 (42-50) % MCV 95.7 (78-100) fL MCH 32.3 H (26-32) pg MCHC 33.7 (32-36) g/dL RDW 13.8 (11.5-14.0) % Plt Count 163 (150-450) x10^3/uL MPV 10.2 (7.5-11.0) fL Gran % 52.5 (36.0-66.0) % Immature Gran % (Auto) 0.2 (0.00-0.4) % Nucleat RBC Rel Count 0.0 (0.00-0.1) % Eos # (Auto) 0.70 H (0-0.5) x10^3/uL Immature Gran # (Auto) 0.02 (0.00-0.03) x10^3u/L Absolute Lymphs (auto) 2.68 (1.0-4.6) x10^3/uL Absolute Monos (auto) 0.83 (0.0-1.3) x10^3/uL Absolute Nucleated RBC 0.00 (0.00-0.01) x10^3u/L Lymphocytes % 29.7 (24.0-44.0) % Monocytes % 9.2 (0.0-12.0) % Eosinophils % 7.8 H (0.00-5.0) % Basophils % 0.6 (0.0-0.4) % Absolute Granulocytes 4.73 (1.4-6.9) x10^3/uL Basophils # 0.05 (0-0.4) x10^3/uL D-Dimer < 0.19 (0.0-0.50) mg/L Sodium 140 (137-145) mmol/L Potassium 3.8 (3.5-5.1) mmol/L Chloride 109 H (98-107) mmol/L Carbon Dioxide 19 L (22-30) mmol/L Anion Gap 16.1 H (5-15) MEQ/L BUN 16 (9-20) mg/dL Creatinine 1.07 (0.66-1.25) mg/dL Estimated GFR > 60.0 ML/MIN Glucose 111 H (74-106) mg/dL Calcium 8.5 (8.4-10.2) mg/dL Total Bilirubin 2.30 H (0.2-1.3) mg/dL AST 29 (17-59) U/L ALT 27 (0-50) U/L Alkaline Phosphatase 102 (38-126) U/L Troponin I (0.000-0.034) ng/mL NT-Pro-B Natriuret Pep (<300) pg/mL Serum Total Protein 7.3 (6.3-8.2) g/dL Albumin 4.1 (3.5-5.0) g/dL Influenza Type A Ag (NEGATIVE) Influenza Type B Ag (NEGATIVE) RSV (PCR) (NEGATIVE) SARS-CoV-2 (PCR) (NEGATIVE) 01/14/23 01/14/23 01/14/23 Range/Units 17:51 17:51 17:51 WBC (4.0-10.5) x10^3/uL RBC (4.1-5.6) x10^6/uL Hgb (12.5-18.0) g/dL Hct (42-50) % MCV (78-100) fL MCH (26-32) pg MCHC (32-36) g/dL RDW (11.5-14.0) % Plt Count (150-450) x10^3/uL MPV (7.5-11.0) fL Gran % (36.0-66.0) % Immature Gran % (Auto) (0.00-0.4) % Nucleat RBC Rel Count (0.00-0.1) % Eos # (Auto) (0-0.5) x10^3/uL Immature Gran # (Auto) (0.00-0.03) x10^3u/L Absolute Lymphs (auto) (1.0-4.6) x10^3/uL Absolute Monos (auto) (0.0-1.3) x10^3/uL Absolute Nucleated RBC (0.00-0.01) x10^3u/L Lymphocytes % (24.0-44.0) % Monocytes % (0.0-12.0) % Eosinophils % (0.00-5.0) % Basophils % (0.0-0.4) % Absolute Granulocytes (1.4-6.9) x10^3/uL Basophils # (0-0.4) x10^3/uL D-Dimer (0.0-0.50) mg/L Sodium (137-145) mmol/L Potassium (3.5-5.1) mmol/L Chloride (98-107) mmol/L Carbon Dioxide (22-30) mmol/L Anion Gap (5-15) MEQ/L BUN (9-20) mg/dL Creatinine (0.66-1.25) mg/dL Estimated GFR ML/MIN Glucose (74-106) mg/dL Calcium (8.4-10.2) mg/dL Total Bilirubin (0.2-1.3) mg/dL AST (17-59) U/L ALT (0-50) U/L Alkaline Phosphatase (38-126) U/L Troponin I < 0.012 (0.000-0.034) ng/mL NT-Pro-B Natriuret Pep 39.1 (<300) pg/mL Serum Total Protein (6.3-8.2) g/dL Albumin (3.5-5.0) g/dL Influenza Type A Ag NEGATIVE (NEGATIVE) Influenza Type B Ag NEGATIVE (NEGATIVE) RSV (PCR) NEGATIVE (NEGATIVE) SARS-CoV-2 (PCR) NEGATIVE (NEGATIVE) 01/14/23 Range/Units 21:38 WBC (4.0-10.5) x10^3/uL RBC (4.1-5.6) x10^6/uL Hgb (12.5-18.0) g/dL Hct (42-50) % MCV (78-100) fL MCH (26-32) pg MCHC (32-36) g/dL RDW (11.5-14.0) % Plt Count (150-450) x10^3/uL MPV (7.5-11.0) fL Gran % (36.0-66.0) % Immature Gran % (Auto) (0.00-0.4) % Nucleat RBC Rel Count (0.00-0.1) % Eos # (Auto) (0-0.5) x10^3/uL Immature Gran # (Auto) (0.00-0.03) x10^3u/L Absolute Lymphs (auto) (1.0-4.6) x10^3/uL Absolute Monos (auto) (0.0-1.3) x10^3/uL Absolute Nucleated RBC (0.00-0.01) x10^3u/L Lymphocytes % (24.0-44.0) % Monocytes % (0.0-12.0) % Eosinophils % (0.00-5.0) % Basophils % (0.0-0.4) % Absolute Granulocytes (1.4-6.9) x10^3/uL Basophils # (0-0.4) x10^3/uL D-Dimer (0.0-0.50) mg/L Sodium (137-145) mmol/L Potassium (3.5-5.1) mmol/L Chloride (98-107) mmol/L Carbon Dioxide (22-30) mmol/L Anion Gap (5-15) MEQ/L BUN (9-20) mg/dL Creatinine (0.66-1.25) mg/dL Estimated GFR ML/MIN Glucose (74-106) mg/dL Calcium (8.4-10.2) mg/dL Total Bilirubin (0.2-1.3) mg/dL AST (17-59) U/L ALT (0-50) U/L Alkaline Phosphatase (38-126) U/L Troponin I < 0.012 (0.000-0.034) ng/mL NT-Pro-B Natriuret Pep (<300) pg/mL Serum Total Protein (6.3-8.2) g/dL Albumin (3.5-5.0) g/dL Influenza Type A Ag (NEGATIVE) Influenza Type B Ag (NEGATIVE) RSV (PCR) (NEGATIVE) SARS-CoV-2 (PCR) (NEGATIVE) - Radiology Impressions Radiology Exams & Impressions: Radiology Procedures Category Date Time Status CHEST 2 VIEWS (PA AND LAT) Stat Exams 01/14/23 17:34 Taken CTA ABD/PEL W AND/OR W/O CONTR [CT] Stat Exams 01/14/23 18:28 Taken CTA CHEST W AND/OR WO [CT] Stat Exams 01/14/23 18:27 Taken CTA Chest/abd/pelvis without acute findings, per ED physician report. - Other Procedures and Tests Respiratory Therapy 01/14/23 22:15 EKG Q8HX2,QAMX3,PRN Assessment/Plan (1) Chest pain Current Visit: Yes Status: Acute Assessment & Plan: 73 y/o m with h/o CAD, COPD, A-fib, hypothyroidism, here with atypical chest pain. ## Chest pain - atypical, and in fact at first did not describe any chest pain, just palpitations. But patient has strong coronary history, so being admitted for observation. Initial EKG, troponin are unrevealing. - admit under OBSERVATION, with telemetry - serial troponins ## Hypothyroidism - patient with palpitations and diaphoresis; possibly overcorrected on his thryoid replacement. - check TSH - continue home Synthroid 75 mcg for now ## CAD - h/o remote PCI - continue ASA 81, atorvastatin 80, Toprol XL 25 ## A-fib - paroxysmal, current in NSR - continue Toprol XL 25 - continue Eliquis ## COPD - currently on room air - monitor Code status: DNR Prophylaxis: Eliquis Dispo: Admit under observation. If serial exams negative, likely home tomorrow, with f/u with outpatient paving supervisor Dr. Poe for evaluation for need for further ischemic risk stratification. Code(s): R07.9 - CHEST PAIN, UNSPECIFIED Telemedicine Encounter - Telemedicine Encounter Telemedicine Encounter: The entirety of this encounter was performed via Telemedicine"
[2023-01-14] MEDS ORDERED: VENTOLIN COMMON CANISTER IH PRN (23:40)
[2023-01-14] MEDS ORDERED: ZOCOR 20MG PO ONE (23:45)
[2023-01-15 00:24] LABS: Risk Ratio 3.9
[2023-01-15] MEDS: ELIQUIS 2.5 MG TABLET PO SCH ×2 (00:28→09:48)
[2023-01-15] MEDS ORDERED: Advair Hfa 115/21 Common canister IH SCH (07:00)
[2023-01-15 07:17] VITALS: O2SAT 92
[2023-01-15] MEDS ORDERED: VITAMIN D PO SCH ×2 (07:30→22:00)
[2023-01-15] MEDS ORDERED: CHOLECALCIFEROL 25 MCG PO SCH (07:30)
--- NOTE | 2023-01-15 08:38 | XRAY ---
Indication: Aortic dissection. Conventional contrast enhanced CTA chest performed using 100 cc Isovue 370 contrast. 2-D sagittal and coronal reformatted images obtained. Additional 3-D reformatted images obtained using a separate workstation. Comparison: CT PE exam January 02, 2021. Thoracic aorta again demonstrates very minimal aortic arch calcifications. Negative for aneurysm/dissection. Continued widely patent branch right brachiocephalic, left common carotid, and left subclavian arteries. No obvious central pulmonary embolus. Heart not enlarged again with prominent epicardiac fat. No pathologic mediastinal/hilar lymphadenopathy. Lungs again demonstrates bilateral dependent atelectasis, lingula fibrosis/scarring, and posterior left lower lobe calcified granuloma. No new pulmonary mass/nodule, infiltrate, effusion, or pneumothorax. Bony thorax intact again with osteopenia and minimal degenerative changes throughout the spine. CTA abdomen/pelvis reported separately. Impression: 1. Stable minimal aortic arch arteriosclerotic calcifications. Remaining CTA chest with contrast exam is negative. 2. Again chronic findings including prominent epicardiac fat, chronic bony findings, and old granulomatous disease.
--- NOTE | 2023-01-15 08:41 | XRAY ---
Indication: Aortic dissection. Conventional contrast enhanced CTA abdomen and pelvis performed using 100 cc Isovue 370 contrast. 2-D sagittal and coronal reformatted images obtained. Additional 3-D reformatted images obtained using a separate workstation. Comparison: CT abdomen/pelvis October 08, 2022. CTA chest reported separately. There remains mild scattered aortobiiliac arteriosclerotic calcifications. Negative for aneurysm/dissection. Again widely patent branching celiac, superior mesenteric, inferior mesenteric, and single main renal arteries. Noncontrasted stomach and bowel loops appear nonobstructed again with normal appendix. Stable fatty liver, splenic calcified granulomas, and cholecystectomy. No free fluid/air. Remaining liver, pancreas, spleen, adrenal glands, kidneys, ureters, and bladder are unremarkable. No pathologic retroperitoneal lymphadenopathy. Osseous structures intact again with osteopenia and minimal degenerative changes throughout the spine. Stable small fatty right inguinal hernia. Impression: 1. Stable mild aortoiliac calcifications. Remaining CTA abdomen/pelvis with contrast exam negative aneurysm/dissection. 2. Again chronic findings including fatty liver, small fatty right inguinal hernia, chronic bony findings, and old granulomatous disease.
--- NOTE | 2023-01-15 08:41 | XRAY ---
Indication: Chest pain. Comparison: October 07, 2022 PA/lateral chest demonstrates stable lingula subsegmental atelectasis/scarring and tiny left base calcified granuloma. Remaining heart and lungs unremarkable. Bony thorax intact again with osteopenia and mild degenerative changes. Impression: Continued nonacute chest with chronic features.
[2023-01-15] MEDS ORDERED: Toprol-Xl 25MG Tablets PO SCH (10:00)
[2023-01-15] MEDS ORDERED: ECOTRIN 81 MG PO SCH (10:00)
[2023-01-15] MEDS ORDERED: Klor Con PO SCH (10:00)
[2023-01-15] MEDS ORDERED: SYNTHROID 75 MCG PO SCH (10:00)
--- NOTE | 2023-01-15 11:17 | PCM.DS ---
Discharge Summary Date of Admission: 01/14/23 22:14 Date of Discharge: 01/15/2023 Admitting Physician: CHELO QUINTERO MD Primary Care Provider: KENAN MONTILLA Allergies Allergies levofloxacin Allergy (Intermediate, Verified 01/01/23 11:02) [facility] Summary - Hospital Course Hospital Course: 73-year-old man with history of CAD, A-fib, COPD, hypothyroidism, and recent hyperglycemia, who presented with acute onset of chest potation's and karena phoresis, with eventual possible chest pain. Lasted a few hours, but relieved upon arrival at the ED. Due to concern for possible dissection, he had CTA of the chest and abdomen done in the ER, with no acute findings. Patient had serial troponins that were normal, and no ischemic changes on EKG. Repeat TSH was within normal limits. Patient was on room air on arrival, but has been using oxygen at home as needed. 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 Mejia for evaluation if he needs further ischemic restratification. Entirety of encounter took place via telemedicine. Patient consented to telemedicine. Greater than 30 minutes managing discharge. - Vitals & Intake/Output Vital Signs: Vital Signs Temperature 98.0 F 01/15/23 07:16 Pulse Rate 58 L 01/15/23 07:16 Respiratory Rate 17 01/15/23 07:16 Blood Pressure 102/59 01/15/23 07:16 O2 Sat by Pulse Oximetry 92 L 01/15/23 07:16 Intake & Output: Intake & Output 01/12/23 01/13/23 01/14/23 01/15/23 11:59 11:59 11:59 11:59 Intake Total 200 Output Total 225 Balance -25 Weight 81.5 kg - Lab Result Diagrams: 01/14/23 17:51 01/14/23 17:51 Lab Results-Last 24 Hrs: Lab Results-Last 24 Hours 01/14/23 01/14/23 01/14/23 Range/Units 17:51 17:51 17:51 WBC 9.0 (4.0-10.5) x10^3/uL RBC 4.68 (4.1-5.6) x10^6/uL Hgb 15.1 (12.5-18.0) g/dL Hct 44.8 (42-50) % MCV 95.7 (78-100) fL MCH 32.3 H (26-32) pg MCHC 33.7 (32-36) g/dL RDW 13.8 (11.5-14.0) % Plt Count 163 (150-450) x10^3/uL MPV 10.2 (7.5-11.0) fL Gran % 52.5 (36.0-66.0) % Immature Gran % (Auto) 0.2 (0.00-0.4) % Nucleat RBC Rel Count 0.0 (0.00-0.1) % Eos # (Auto) 0.70 H (0-0.5) x10^3/uL Immature Gran # (Auto) 0.02 (0.00-0.03) x10^3u/L Absolute Lymphs (auto) 2.68 (1.0-4.6) x10^3/uL Absolute Monos (auto) 0.83 (0.0-1.3) x10^3/uL Absolute Nucleated RBC 0.00 (0.00-0.01) x10^3u/L Lymphocytes % 29.7 (24.0-44.0) % Monocytes % 9.2 (0.0-12.0) % Eosinophils % 7.8 H (0.00-5.0) % Basophils % 0.6 (0.0-0.4) % Absolute Granulocytes 4.73 (1.4-6.9) x10^3/uL Basophils # 0.05 (0-0.4) x10^3/uL D-Dimer < 0.19 (0.0-0.50) mg/L Sodium 140 (137-145) mmol/L Potassium 3.8 (3.5-5.1) mmol/L Chloride 109 H (98-107) mmol/L Carbon Dioxide 19 L (22-30) mmol/L Anion Gap 16.1 H (5-15) MEQ/L BUN 16 (9-20) mg/dL Creatinine 1.07 (0.66-1.25) mg/dL Estimated GFR > 60.0 ML/MIN Glucose 111 H (74-106) mg/dL Calcium 8.5 (8.4-10.2) mg/dL Total Bilirubin 2.30 H (0.2-1.3) mg/dL AST 29 (17-59) U/L ALT 27 (0-50) U/L Alkaline Phosphatase 102 (38-126) U/L Troponin I (0.000-0.034) ng/mL NT-Pro-B Natriuret Pep (<300) pg/mL Serum Total Protein 7.3 (6.3-8.2) g/dL Albumin 4.1 (3.5-5.0) g/dL Triglycerides (30-150) mg/dL Cholesterol (50-200) mg/dL LDL Cholesterol (30-100) mg/dL HDL Cholesterol (40-60) mg/dL Heart Disease Risk Ratio TSH 3rd Generation (0.47-4.68) mIU/L Influenza Type A Ag (NEGATIVE) Influenza Type B Ag (NEGATIVE) RSV (PCR) (NEGATIVE) SARS-CoV-2 (PCR) (NEGATIVE) 01/14/23 01/14/23 01/14/23 Range/Units 17:51 17:51 17:51 WBC (4.0-10.5) x10^3/uL RBC (4.1-5.6) x10^6/uL Hgb (12.5-18.0) g/dL Hct (42-50) % MCV (78-100) fL MCH (26-32) pg MCHC (32-36) g/dL RDW (11.5-14.0) % Plt Count (150-450) x10^3/uL MPV (7.5-11.0) fL Gran % (36.0-66.0) % Immature Gran % (Auto) (0.00-0.4) % Nucleat RBC Rel Count (0.00-0.1) % Eos # (Auto) (0-0.5) x10^3/uL Immature Gran # (Auto) (0.00-0.03) x10^3u/L Absolute Lymphs (auto) (1.0-4.6) x10^3/uL Absolute Monos (auto) (0.0-1.3) x10^3/uL Absolute Nucleated RBC (0.00-0.01) x10^3u/L Lymphocytes % (24.0-44.0) % Monocytes % (0.0-12.0) % Eosinophils % (0.00-5.0) % Basophils % (0.0-0.4) % Absolute Granulocytes (1.4-6.9) x10^3/uL Basophils # (0-0.4) x10^3/uL D-Dimer (0.0-0.50) mg/L Sodium (137-145) mmol/L Potassium (3.5-5.1) mmol/L Chloride (98-107) mmol/L Carbon Dioxide (22-30) mmol/L Anion Gap (5-15) MEQ/L BUN (9-20) mg/dL Creatinine (0.66-1.25) mg/dL Estimated GFR ML/MIN Glucose (74-106) mg/dL Calcium (8.4-10.2) mg/dL Total Bilirubin (0.2-1.3) mg/dL AST (17-59) U/L ALT (0-50) U/L Alkaline Phosphatase (38-126) U/L Troponin I < 0.012 (0.000-0.034) ng/mL NT-Pro-B Natriuret Pep 39.1 (<300) pg/mL Serum Total Protein (6.3-8.2) g/dL Albumin (3.5-5.0) g/dL Triglycerides (30-150) mg/dL Cholesterol (50-200) mg/dL LDL Cholesterol (30-100) mg/dL HDL Cholesterol (40-60) mg/dL Heart Disease Risk Ratio TSH 3rd Generation (0.47-4.68) mIU/L Influenza Type A Ag NEGATIVE (NEGATIVE) Influenza Type B Ag NEGATIVE (NEGATIVE) RSV (PCR) NEGATIVE (NEGATIVE) SARS-CoV-2 (PCR) NEGATIVE (NEGATIVE) 01/14/23 01/15/23 01/15/23 Range/Units 21:38 00:00 02:47 WBC (4.0-10.5) x10^3/uL RBC (4.1-5.6) x10^6/uL Hgb (12.5-18.0) g/dL Hct (42-50) % MCV (78-100) fL MCH (26-32) pg MCHC (32-36) g/dL RDW (11.5-14.0) % Plt Count (150-450) x10^3/uL MPV (7.5-11.0) fL Gran % (36.0-66.0) % Immature Gran % (Auto) (0.00-0.4) % Nucleat RBC Rel Count (0.00-0.1) % Eos # (Auto) (0-0.5) x10^3/uL Immature Gran # (Auto) (0.00-0.03) x10^3u/L Absolute Lymphs (auto) (1.0-4.6) x10^3/uL Absolute Monos (auto) (0.0-1.3) x10^3/uL Absolute Nucleated RBC (0.00-0.01) x10^3u/L Lymphocytes % (24.0-44.0) % Monocytes % (0.0-12.0) % Eosinophils % (0.00-5.0) % Basophils % (0.0-0.4) % Absolute Granulocytes (1.4-6.9) x10^3/uL Basophils # (0-0.4) x10^3/uL D-Dimer (0.0-0.50) mg/L Sodium (137-145) mmol/L Potassium (3.5-5.1) mmol/L Chloride (98-107) mmol/L Carbon Dioxide (22-30) mmol/L Anion Gap (5-15) MEQ/L BUN (9-20) mg/dL Creatinine (0.66-1.25) mg/dL Estimated GFR ML/MIN Glucose (74-106) mg/dL Calcium (8.4-10.2) mg/dL Total Bilirubin (0.2-1.3) mg/dL AST (17-59) U/L ALT (0-50) U/L Alkaline Phosphatase (38-126) U/L Troponin I < 0.012 < 0.012 (0.000-0.034) ng/mL NT-Pro-B Natriuret Pep (<300) pg/mL Serum Total Protein (6.3-8.2) g/dL Albumin (3.5-5.0) g/dL Triglycerides 50 (30-150) mg/dL Cholesterol 91 (50-200) mg/dL LDL Cholesterol 52 (30-100) mg/dL HDL Cholesterol 23 L (40-60) mg/dL Heart Disease Risk Ratio 3.9 TSH 3rd Generation (0.47-4.68) mIU/L Influenza Type A Ag (NEGATIVE) Influenza Type B Ag (NEGATIVE) RSV (PCR) (NEGATIVE) SARS-CoV-2 (PCR) (NEGATIVE) 01/15/23 Range/Units 02:47 WBC (4.0-10.5) x10^3/uL RBC (4.1-5.6) x10^6/uL Hgb (12.5-18.0) g/dL Hct (42-50) % MCV (78-100) fL MCH (26-32) pg MCHC (32-36) g/dL RDW (11.5-14.0) % Plt Count (150-450) x10^3/uL MPV (7.5-11.0) fL Gran % (36.0-66.0) % Immature Gran % (Auto) (0.00-0.4) % Nucleat RBC Rel Count (0.00-0.1) % Eos # (Auto) (0-0.5) x10^3/uL Immature Gran # (Auto) (0.00-0.03) x10^3u/L Absolute Lymphs (auto) (1.0-4.6) x10^3/uL Absolute Monos (auto) (0.0-1.3) x10^3/uL Absolute Nucleated RBC (0.00-0.01) x10^3u/L Lymphocytes % (24.0-44.0) % Monocytes % (0.0-12.0) % Eosinophils % (0.00-5.0) % Basophils % (0.0-0.4) % Absolute Granulocytes (1.4-6.9) x10^3/uL Basophils # (0-0.4) x10^3/uL D-Dimer (0.0-0.50) mg/L Sodium (137-145) mmol/L Potassium (3.5-5.1) mmol/L Chloride (98-107) mmol/L Carbon Dioxide (22-30) mmol/L Anion Gap (5-15) MEQ/L BUN (9-20) mg/dL Creatinine (0.66-1.25) mg/dL Estimated GFR ML/MIN Glucose (74-106) mg/dL Calcium (8.4-10.2) mg/dL Total Bilirubin (0.2-1.3) mg/dL AST (17-59) U/L ALT (0-50) U/L Alkaline Phosphatase (38-126) U/L Troponin I (0.000-0.034) ng/mL NT-Pro-B Natriuret Pep (<300) pg/mL Serum Total Protein (6.3-8.2) g/dL Albumin (3.5-5.0) g/dL Triglycerides (30-150) mg/dL Cholesterol (50-200) mg/dL LDL Cholesterol (30-100) mg/dL HDL Cholesterol (40-60) mg/dL Heart Disease Risk Ratio TSH 3rd Generation 4.360 (0.47-4.68) mIU/L Influenza Type A Ag (NEGATIVE) Influenza Type B Ag (NEGATIVE) RSV (PCR) (NEGATIVE) SARS-CoV-2 (PCR) (NEGATIVE) - Radiology Exams Ordered Rad Exams-Entire Visit: Radiology Procedures Category Date Time Status CHEST 2 VIEWS (PA AND LAT) Stat Exams 01/14/23 17:34 Completed CTA ABD/PEL W AND/OR W/O CONTR [CT] Stat Exams 01/14/23 18:28 Completed CTA CHEST W AND/OR WO [CT] Stat Exams 01/14/23 18:27 Completed CTA of chest, abdomen, and pelvis: Stable mild aortoiliac calcifications. No evidence of aneurysm or dissection. Chronic findings including fatty liver, small fatty right inguinal hernia, chronic bony findings, and old granulomatous disease - Procedures and Test Procedures and Tests throughout Hospitalization: Therapy Orders & Screens 01/14/23 22:15 EKG [id number],QAMX3,PRN Comment: 01/14/23 23:38 Respiratory Therapy Assessment DAILY Comment: Diagnosis: heart racing 01/14/23 23:40 Respiratory MDI BID Comment: Diagnosis: heart racing 01/15/23 01:30 EKG ROUTINE Comment: Diagnosis: heart racing 01/16/23 05:00 EKG ROUTINE Comment: Diagnosis: heart racing 01/17/23 05:00 EKG ROUTINE Comment: Diagnosis: heart racing Discharge Exam General Appearance: no apparent distress Neurologic Exam: alert, oriented x 3, normal mood/affect Eye Exam: eyes nml inspection Respiratory Exam: normal breath sounds, lungs clear, other (On room air), No respiratory distress Cardiovascular Exam: regular rate/rhythm, No murmur, No gallop, No edema Gastrointestinal/Abdomen Exam: soft, No tenderness, No distention Final Diagnosis/Problem List - Final Discharge Diagnosis/Problem (1) Chest pain Current Visit: Yes Status: Acute Code(s): R07.9 - CHEST PAIN, UNSPECIFIED Telemedicine Encounter - Telemedicine Encounter Telemedicine Encounter: The entirety of this encounter was performed via Telemedicine" - Discharge Disposition: Home, Self-Care Condition: Stable Prescriptions: Continue Aspirin EC 81 mg [Ecotrin 81 mg] 81 mg PO DAILY Apixaban [Eliquis] 5 mg PO BID Atorvastatin Calcium 80 mg PO QHS Metoprolol Succinate 25 mg Xl* [Toprol-Xl 25MG Tablets] 25 mg PO DAILY Potassium Chloride Tab* [Klor Con] 10 meq PO DAILY 30 Days #30 tablet Levothyroxine Sodium 75 Mcg [Synthroid 75 Mcg] 75 mg PO DAILY Cholecalciferol (Vitamin D3) [Vitamin D3] 1 tab PO HS Cyanocobalamin (Vitamin B-12) [Cyanocobalamin Injection] 1 ml SQ DIRECTIONS UNKNOWN Fluticasone/Vilanterol [Breo Ellipta 200-25 Mcg INH] 1 puff PO DAILY Instructions: Chest Pain Follow up with: ALLISON MEJIA [CONSULTING PHYSICIAN] - 01/23/23 2:30 pm ([place] [facility]) NATALEE POTTS NP [NON-STAFF PHY W/O PRIVILEGES] - 01/23/23 10:30 am
[2023-01-15 11:41] VITALS: BP 96/51; PULSE 62
[2023-01-15] MEDS ORDERED: NON-FORMULARY ITEM (Atorvastatin Calcium [Atorvastatin Calcium] 80 MG Tablet) PO SCH (22:00)
[2023-01-15] MEDS ORDERED: ZOCOR 20MG PO SCH (22:00)
== END 2023-01-15 13:42 | disposition home or self-care (01) ==
LOC: ED 17:28 → MED SURG 22:14
PROVIDERS: ADMIT Internal Medicine; ATTEND Family Medicine
DX: R07.9 Chest pain, unspecified (principal); I25.10 Atherosclerotic heart disease of native coronary artery without angina pectoris; I48.91 Unspecified atrial fibrillation; I10 Essential (primary) hypertension; R73.9 Hyperglycemia, unspecified; J44.9 Chronic obstructive pulmonary disease, unspecified; E03.9 Hypothyroidism, unspecified; E78.5 Hyperlipidemia, unspecified; Z79.899 Other long term (current) drug therapy; Z20.828 Contact with and (suspected) exposure to other viral communicable diseases; Z79.01 Long term (current) use of anticoagulants
CPT/HCPCS: 0241U; 36000; 36415; 71046; 71275; 74174; 80053; 80061; 83721; 83880; 84443; 84484; 85025; 85379; 93005; 93041; 94640; 94760; 99284; Q3014; 93268; A9270-GY; G0378

== ENCOUNTER 2023-04-02 14:35 | Emergency (ER) | payer MEDICARE ==
[2023-04-02 14:48] VITALS: TEMP 98.2
--- NOTE | 2023-04-02 15:16 | ERPHSYRPT ---
- History of Present Illness Time Seen by Provider: 04/02/23 14:57 Source: patient Exam Limitations: no limitations Patient Subjective Stated Complaint: Pt was lifting a box springs and mattress and it slipped and tore his skin on his right hand/wrist Triage Nursing Assessment: Pt brought self to the ER, hypertensive, rates pain as 9/10 in his right wrist/lower arm, pt has 2 V shaped tears to his right hand/wrist that measure 4x3 cm and 1x2 cm, pt is on blood thinners, pulses are normal, doesn't appear to be in any distress Physician History: 73-year-old up-to-date with tetanus presented in the ER with chief complaint of right hand laceration after he was lifting a box spring mattress but slipped and fell on his hand. Patient reports there was bleeding initially but stopped with applying pressure. Patient has superficial skin tears. Still able to move his thumb and wrist but a little pain. No tingling or numbness in the fingertips. No injury anywhere else. Patient has superficial skin tear around anatomical snuffbox area and wrist joint. No active spurting, minimal oozing. Intact range of motion but pain. Distal neurovascular intact. Offered pain medication which she declined. Obtain x-rays which are negative for fracture dislocation in the hand and wrist. Patient is up-to-date with tetanus. We cannot put stitches, nonadherent dressing applied. Recommended outpatient primary care follow-up and may need referral for wound care clinic. Do not think needs antibiotic as it is a clean wound. Discussed signs symptoms of worsening needing return to ER which he seems understanding. Stable for discharge. Allergies/Adverse Reactions: levofloxacin Allergy (Intermediate, Verified 04/02/23 14:48) Hives Home Medications: Aspirin EC 81 mg [Ecotrin 81 mg] 81 mg PO DAILY 04/15/19 [History] Apixaban [Eliquis] 5 mg PO BID 02/12/21 [History] Atorvastatin Calcium 80 mg PO QHS 02/07/22 [History] Metoprolol Succinate 25 mg Xl* [Toprol-Xl 25MG Tablets] 25 mg PO DAILY 10/07/22 [History] Cholecalciferol (Vitamin D3) [Vitamin D3] 1 tab PO HS 01/01/23 [History] Levothyroxine Sodium 75 Mcg [Synthroid 75 Mcg] 75 mg PO DAILY 01/01/23 [History] Cyanocobalamin (Vitamin B-12) [Cyanocobalamin Injection] 1 ml SQ DIRECTIONS UNKNOWN 01/14/23 [History] Fluticasone/Vilanterol [Breo Ellipta 200-25 Mcg INH] 1 puff PO DAILY 01/14/23 [History] Hx Tetanus, Diphtheria Vaccination/Date Given: Yes (2021) Hx Influenza Vaccination/Date Given: Yes Hx Pneumococcal Vaccination/Date Given: No Travel Risk - International Travel Have you traveled outside of the country in past 3 weeks: No - Coronavirus Screening Are you exhibiting any of the following symptoms?: No Close contact with a COVID-19 positive Pt in past 14-21 Days: No - Vaccine Status Have you recieved a Covid-19 vaccination: No (lung doctor said not to take it) - Vaccination Dates Comment: States his lung doctor told him not to get vaccine - Review of Systems Constitutional: No Symptoms Ears, Nose, & Throat: No Symptoms Respiratory: No Symptoms Cardiac: No Symptoms Abdominal/Gastrointestinal: No Symptoms Musculoskeletal: Injury Skin: Skin Lesions Neurological: No Symptoms Endocrine: No Symptoms Immunological/Allergic: No Symptoms - Past Medical History Pertinent Past Medical History: Yes Neurological History: No Pertinent History ENT History: Cataracts Cardiac History: Coronary Artery Disease, High Cholesterol, Hypertension Respiratory History: Asthma, COPD, Pneumonia Endocrine Medical History: Hypothyroidism Musculoskeletal History: Osteoarthritis GI Medical History: Gallbladder Disease History: Renal Disease Psycho-Social History: No Pertinent History Male Reproductive Disorders: Prostate Problems Other Medical History: SX HX: CARDIAC STENTS X 3; Information Security Specialist: Dr. 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 2022 "pt states has had several removed and has 2 places presently that need removed". nerve surgery to left foot around the ankle in Apr, 2022. - Social History Smoking Status: Never smoker Exposure to second hand smoke: No Alcohol Use: None Drug Use: none Patient Lives Alone: No () Significant Family History: heart disease - Nursing Vital Signs Nursing Vital Signs: Initial Vital Signs Temperature 98.2 F 09/07/23 14:40 Pulse Rate 71 04/02/23 14:40 Blood Pressure 141/80 04/02/23 14:40 O2 Sat by Pulse Oximetry 93 L 04/02/23 14:40 Pain Scale Pain Intensity 8 - Physical Exam General Appearance: no apparent distress, alert Eye Exam: PERRL/EOMI Neck Exam: normal inspection, full range of motion Respiratory Exam: normal breath sounds, lungs clear Cardiovascular Exam: regular rate/rhythm, normal heart sounds Extremity Exam: normal range of motion, lacerations (Right hand dorsal aspect above anatomical snuffbox and wrist superficial skin tears. Minimal oozing. Minimal tenderness. Intact range of motion at the wrist and thumb.) Neurologic Exam: alert, oriented x 3, cooperative Skin Exam: normal color SpO2 Interpretation: normal SpO2: 93 O2 Delivery: Room Air Ordered Tests: Active Orders 24 hr Category Date Time Status HAND (MINIMUM 3 VIEWS) Stat Exams 04/02/23 15:11 Completed WRIST (MIN 3 VIEWS) Stat Exams 04/02/23 15:11 Completed - Progress Progress Note: 73-year-old up-to-date with tetanus presented in the ER with chief complaint of right hand laceration after he was lifting a box spring mattress but slipped and fell on his hand. Patient reports there was bleeding initially but stopped with applying pressure. Patient has superficial skin tears. Still able to move his thumb and wrist but a little pain. No tingling or numbness in the fingertips. No injury anywhere else. Patient has superficial skin tear around anatomical snuffbox area and wrist joint. No active spurting, minimal oozing. Intact range of motion but pain. Distal neurovascular intact. Offered pain medication which she declined. Obtain x-rays which are negative for fracture dislocation in the hand and wrist. Patient is up-to-date with tetanus. We cannot put stitches, nonadherent dressing applied. Recommended outpatient primary care follow-up and may need referral for wound care clinic. Do not think needs antibiotic as it is a clean wound. Discussed signs symptoms of worsening needing return to ER which he seems understanding. Stable for discharge. Counseled pt/family regarding: diagnosis, need for follow-up, rad results Medical Desision Making - Diagnostic Testing Diagnostic test were ordered, analyzed, and reviewed by me: Yes Radiological Interpretation: Reviewed by me - Departure Departure Disposition: Home Clinical Impression: Hand contusion, Skin tear Condition: Stable Critical Care Time: No Referrals: YUKI MENDOZA DO [Primary Care Provider] - Follow up/PCP as directed Instructions: Wound Care (DC) Additional Instructions: Follow-up with your primary care for reevaluation in 1 to 2 days. Avoid exertional activities with right hand. Return to ER for increasing pain swelling redness discharge/fever chills/difficulty movements of the fingers/thumb etc. Take Tylenol as needed. Intermittent ice application.
[2023-04-02 15:49] VITALS: BP 151/84; PULSE 63
--- NOTE | 2023-04-02 16:23 | XRAY ---
Indication: Laceration. Injury. Comparison: None 3 view right wrist demonstrates osteopenia, mild 1st metacarpal multangular scaphoid degenerative changes, radiocarpal joint space narrowing, and extensive scattered vascular calcifications. No other bony, articular, or soft tissue abnormalities.
--- NOTE | 2023-04-02 16:23 | XRAY ---
Indication: Laceration. Injury. Comparison: None 3 view right hand demonstrates osteopenia, mild 1st metacarpal multangular scaphoid degenerative changes, mild degenerative changes all IP joints, radiocarpal joint space narrowing, and extensive scattered vascular calcifications. No other bony, articular, or soft tissue abnormalities.
[2023-04-02 21:36] VITALS: O2SAT 93
== END 2023-04-02 16:37 | disposition home or self-care (01) ==
LOC: ED 14:35
DX: S61.411A Laceration without foreign body of right hand, initial encounter (principal); W26.8XXA Contact with other sharp object(s), not elsewhere classified, initial encounter; E78.5 Hyperlipidemia, unspecified; I10 Essential (primary) hypertension; Z79.899 Other long term (current) drug therapy
CPT/HCPCS: 73110; 73130; 99281

== ENCOUNTER 2023-06-29 09:11 | Observation (INO) | payer MEDICARE ==
[2023-06-29] MEDS: Sodium Chloride 0.9% 1000 ML 1,000 ML IV SCH ×2 (09:35→23:14)
--- NOTE | 2023-06-29 10:00 | XRAY ---
Indication: Short of breath. Comparison: January 14, 2023 Portable chest again demonstrates CT proven left base fibrosis/scarring and small calcified granuloma. Remaining heart and lungs unremarkable. Bony thorax intact again with osteopenia and mild degenerative changes. No new/acute findings.
[2023-06-29 10:23] LABS: Absolute Neutrophil Ct (ANC) 4.94 x10^3/uL (1.4-6.9); BASOPHIL % 0.1 % (0.0-0.4); Basophil (Absolute #) 0.01 x10^3/uL (0-0.4); Eosinophil (Absolute #) 0.07 x10^3/uL (0-0.5); Hemoglobin 16.4 g/dL (12.5-18.0); IMMATURE GRAN # 0.02 x10^3u/L (0.00-0.03); IMMATURE GRAN % 0.3 % (0.00-0.4); Lymphocyte (Absolute #) 1.47 x10^3/uL (1.0-4.6); Lymphocytes % 21.6 % (24.0-44.0); Mean Cell Volume 94.7 fL (78-100); Mean Corpuscular Hemoglobin 31.1 pg (26-32); Mean Corpuscular Hgb Concent. 32.8 g/dL (32-36); Monocyte (Absolute #) 0.31 x10^3/uL (0.0-1.3); Monocytes % 4.5 % (0.0-12.0); Neutrophil % 72.5 % (36.0-66.0); Platelet Count 156 x10^3/uL (150-450); Red Blood Count 5.28 x10^6/uL (4.1-5.6); Red Cell Distribution Width 13.3 % (11.5-14.0); White Blood Count 6.8 x10^3/uL (4.0-10.5)
[2023-06-29 10:38] LABS: D-DIMER QUANTITATIVE 0.36 mg/L (0.0-0.50); INR 1.03 (0.8-3.0); PROTIME 11.2 SECONDS (9.4-12.5); PTT 30.8 SECONDS (25.1-36.5)
[2023-06-29 10:46] LABS: ALBUMIN 3.8 g/dL (3.5-5.0); ANION GAP 14.4 MEQ/L (5-15); BILIRUBIN,TOTAL 1.7 mg/dL (0.2-1.3); Calcium 8.5 mg/dL (8.4-10.2); EST GLOMERULAR FILTRATION RATE 78.5 ML/MIN; MAGNESIUM 1.9 mg/dL (1.6-2.3); Potassium 3.3 mmol/L (3.5-5.1); Total Protein 6.9 g/dL (6.3-8.2)
[2023-06-29 11:02] LABS: INFLUENZA A NEGATIVE (NEGATIVE); INFLUENZA B NEGATIVE (NEGATIVE); RESPIRATORY SYNCTIAL VIRUS NEGATIVE (NEGATIVE)
[2023-06-29 11:04] LABS: SARS-CoV-2 Xpert Express POSITIVE (NEGATIVE)
--- NOTE | 2023-06-29 11:16 | ERPHSYRPT ---
- History of Present Illness Time Seen by Provider: 06/29/23 09:20 Source: patient Exam Limitations: no limitations Patient Subjective Stated Complaint: Shortness of breath, congestions, "heart racing" Triage Nursing Assessment: Pt presents with complaints of SOB, "racing heart", cough and congestions for 3 days. Physician History: Patient is a 73-year-old white male who presents with a complaint of shortness of breath increased heart rate COPD and nausea and vomiting since Thursday and Thursday. He has not had any documented fever he does have a cough producing white sputum. Timing/Duration: day(s) (4) Cough Quality/Degree: productive cough, sputum Modifying Factors: Improves With: albuterol nebulizer Associated Symptoms: chills, cough, shortness of breath Allergies/Adverse Reactions: levofloxacin Allergy (Intermediate, Verified 06/29/23 09:21) Hives Home Medications: Aspirin EC 81 mg [Ecotrin 81 mg] 81 mg PO DAILY 04/15/19 [History] Apixaban [Eliquis] 5 mg PO BID 02/12/21 [History] Atorvastatin Calcium 80 mg PO QHS 02/07/22 [History] Metoprolol Succinate 25 mg Xl* [Toprol-Xl 25MG Tablets] 25 mg PO DAILY 10/07/22 [History] Cholecalciferol (Vitamin D3) [Vitamin D3] 1 tab PO HS 01/01/23 [History] Levothyroxine Sodium 75 Mcg [Synthroid 75 Mcg] 75 mg PO DAILY 01/01/23 [History] Cyanocobalamin (Vitamin B-12) [Cyanocobalamin Injection] 1 ml SQ DIRECTIONS UNKNOWN 01/14/23 [History] Fluticasone/Vilanterol [Breo Ellipta 200-25 Mcg Inhalr] 1 puff PO DAILY 01/14/23 [History] Hx Tetanus, Diphtheria Vaccination/Date Given: Yes (2021) Hx Influenza Vaccination/Date Given: Yes Hx Pneumococcal Vaccination/Date Given: No Travel Risk - International Travel Have you traveled outside of the country in past 3 weeks: No - Coronavirus Screening Are you exhibiting any of the following symptoms?: Yes Symptoms: Cough: New Onset, Shortness of Breath Close contact with a COVID-19 positive Pt in past 14-21 Days: No - Vaccine Status Have you recieved a Covid-19 vaccination: No (lung doctor said not to take it) - Vaccination Dates Comment: States his lung doctor told him not to get vaccine - Review of Systems Constitutional: Chills, Lethargy, Malaise, Weakness, No Fever Eyes: No Symptoms Ears, Nose, & Throat: No Symptoms Respiratory: Cough, Dyspnea Cardiac: Palpitations, No Chest Pain, No Edema, No Syncope Abdominal/Gastrointestinal: No Abdominal Pain, No Nausea, No Vomiting, No Diarrhea Genitourinary Symptoms: No Dysuria Musculoskeletal: No Back Pain, No Neck Pain Skin: No Rash Neurological: No Dizziness, No Focal Weakness, No Sensory Changes Psychological: No Symptoms Endocrine: No Symptoms All Other Systems: Reviewed and Negative - Past Medical History Pertinent Past Medical History: Yes Neurological History: No Pertinent History ENT History: Cataracts Cardiac History: Coronary Artery Disease, Hypertension Respiratory History: COPD Endocrine Medical History: No Pertinent History Musculoskeletal History: Osteoarthritis GI Medical History: Gallbladder Disease History: Renal Disease Psycho-Social History: No Pertinent History Male Reproductive Disorders: Prostate Problems Other Medical History: PT. REPORTS CARDIAC CATH W/ STENTS IN HIS PMH. PT. 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 2022 "pt states has had several removed and has 2 places presently that need removed". nerve surgery to left foot around the ankle in Apr, 2022. - Social History Smoking Status: Never smoker Exposure to second hand smoke: No Alcohol Use: None Drug Use: none Patient Lives Alone: No () Significant Family History: heart disease - Nursing Vital Signs Nursing Vital Signs: Initial Vital Signs Temperature 99.1 F 06/29/23 09:15 Pulse Rate 129 H 06/29/23 09:15 Respiratory Rate 20 06/29/23 09:15 Blood Pressure 118/82 06/29/23 09:15 O2 Sat by Pulse Oximetry 91 L 06/29/23 09:15 Pain Scale Pain Intensity 0 - Physical Exam General Appearance: no apparent distress, alert Eye Exam: PERRL/EOMI, eyes nml inspection Ears, Nose, Throat Exam: normal ENT inspection, TMs normal, pharynx normal, moist mucous membranes Neck Exam: normal inspection, non-tender, supple, full range of motion Respiratory Exam: normal breath sounds, lungs clear, No respiratory distress Cardiovascular Exam: regular rate/rhythm, normal heart sounds Gastrointestinal/Abdomen Exam: soft, No tenderness Back Exam: normal inspection, No CVA tenderness, No vertebral tenderness Extremity Exam: normal inspection, normal range of motion Neurologic Exam: alert, oriented x 3, cooperative, normal mood/affect, sensation nml, No motor deficits Skin Exam: normal color, warm, dry, No rash Lymphatic Exam: No adenopathy SpO2 Interpretation: normal SpO2: 92 O2 Delivery: Room Air - Course Nursing assessment & vital signs reviewed: Yes EKG Interpreted by Me: RATE, Sinus Tach (127), Right [place] Deviation, Other (Poor R wave progression) - Radiology Exams Chest X-ray Interpretation: Reviewed by me Ordered Tests: Active Orders 24 hr Category Date Time Status EKG-ER Only STAT Care 06/29/23 09:15 Active IV Insertion STAT Care 06/29/23 09:15 Active CHEST 1 VIEW (PORTABLE) Stat Exams 06/29/23 09:16 Completed CBC W DIFF Stat Lab 06/29/23 10:15 Completed CMP Stat Lab 06/29/23 10:15 Completed D-DIMER QUANTITATIVE Stat Lab 06/29/23 10:15 Completed Lactic Acid Stat Lab 06/29/23 10:10 Completed MAGNESIUM Stat Lab 06/29/23 10:15 Completed NT PRO BNPII Stat Lab 06/29/23 10:15 Completed PROTIME WITH INR Stat Lab 06/29/23 10:15 Completed PTT Stat Lab 06/29/23 10:15 Completed TROPONIN Q4H Lab 06/29/23 10:15 Completed TROPONIN Q4H Lab 06/29/23 13:30 Ordered TROPONIN Q4H Lab 06/29/23 17:30 Ordered Medication Summary Generic Name Dose Route Start Last Admin Trade Name Freq PRN Reason Stop Dose Admin Sodium Chloride 1,000 mls @ 100 mls/hr 06/29/23 09:15 06/29/23 09:35 Sodium Chloride 0.9% 1000 Ml IV 07/29/23 09:14 100 mls/hr .Q10H ROHIT Administration Lab/Rad Data: Laboratory Result Diagrams 06/29/23 10:15 06/29/23 10:15 Laboratory Results 06/29/23 06/29/23 06/29/23 Range/Units 10:15 10:15 10:15 WBC (4.0-10.5) x10^3/uL RBC (4.1-5.6) x10^6/uL Hgb (12.5-18.0) g/dL Hct (42-50) % MCV (78-100) fL MCH (26-32) pg MCHC (32-36) g/dL RDW (11.5-14.0) % Plt Count (150-450) x10^3/uL MPV (7.5-11.0) fL Gran % (36.0-66.0) % Immature Gran % (Auto) (0.00-0.4) % Nucleat RBC Rel Count (0.00-0.1) % Eos # (Auto) (0-0.5) x10^3/uL Immature Gran # (Auto) (0.00-0.03) x10^3u/L Absolute Lymphs (auto) (1.0-4.6) x10^3/uL Absolute Monos (auto) (0.0-1.3) x10^3/uL Absolute Nucleated RBC (0.00-0.01) x10^3u/L Lymphocytes % (24.0-44.0) % Monocytes % (0.0-12.0) % Eosinophils % (0.00-5.0) % Basophils % (0.0-0.4) % Absolute Granulocytes (1.4-6.9) x10^3/uL Basophils # (0-0.4) x10^3/uL PT 11.2 (9.4-12.5) SECONDS INR 1.03 (0.8-3.0) APTT 30.8 (25.1-36.5) SECONDS D-Dimer 0.36 (0.0-0.50) mg/L Sodium 136 L (137-145) mmol/L Potassium 3.3 L (3.5-5.1) mmol/L Chloride 105 (98-107) mmol/L Carbon Dioxide 20 L (22-30) mmol/L Anion Gap 14.4 (5-15) MEQ/L BUN 14 (9-20) mg/dL Creatinine 1.00 (0.66-1.25) mg/dL Estimated GFR 78.5 ML/MIN Glucose 138 H (74-106) mg/dL Lactic Acid (0.4-2.0) Calcium 8.5 (8.4-10.2) mg/dL Magnesium 1.9 (1.6-2.3) mg/dL Total Bilirubin 1.70 H (0.2-1.3) mg/dL AST 41 (17-59) U/L ALT 62 H (0-50) U/L Alkaline Phosphatase 133 H (38-126) U/L Troponin I < 0.012 (0.000-0.034) ng/mL NT-Pro-B Natriuret Pep 224 (<300) pg/mL Serum Total Protein 6.9 (6.3-8.2) g/dL Albumin 3.8 (3.5-5.0) g/dL Influenza Type A Ag (NEGATIVE) Influenza Type B Ag (NEGATIVE) RSV (PCR) (NEGATIVE) SARS-CoV-2 (PCR) (NEGATIVE) 06/29/23 06/29/23 06/29/23 Range/Units 10:15 10:10 10:00 WBC 6.8 (4.0-10.5) x10^3/uL RBC 5.28 (4.1-5.6) x10^6/uL Hgb 16.4 (12.5-18.0) g/dL Hct 50.0 (42-50) % MCV 94.7 (78-100) fL MCH 31.1 (26-32) pg MCHC 32.8 (32-36) g/dL RDW 13.3 (11.5-14.0) % Plt Count 156 (150-450) x10^3/uL MPV 9.0 (7.5-11.0) fL Gran % 72.5 H (36.0-66.0) % Immature Gran % (Auto) 0.3 (0.00-0.4) % Nucleat RBC Rel Count 0.0 (0.00-0.1) % Eos # (Auto) 0.07 (0-0.5) x10^3/uL Immature Gran # (Auto) 0.02 (0.00-0.03) x10^3u/L Absolute Lymphs (auto) 1.47 (1.0-4.6) x10^3/uL Absolute Monos (auto) 0.31 (0.0-1.3) x10^3/uL Absolute Nucleated RBC 0.00 (0.00-0.01) x10^3u/L Lymphocytes % 21.6 L (24.0-44.0) % Monocytes % 4.5 (0.0-12.0) % Eosinophils % 1.0 (0.00-5.0) % Basophils % 0.1 (0.0-0.4) % Absolute Granulocytes 4.94 (1.4-6.9) x10^3/uL Basophils # 0.01 (0-0.4) x10^3/uL PT (9.4-12.5) SECONDS INR (0.8-3.0) APTT (25.1-36.5) SECONDS D-Dimer (0.0-0.50) mg/L Sodium (137-145) mmol/L Potassium (3.5-5.1) mmol/L Chloride (98-107) mmol/L Carbon Dioxide (22-30) mmol/L Anion Gap (5-15) MEQ/L BUN (9-20) mg/dL Creatinine (0.66-1.25) mg/dL Estimated GFR ML/MIN Glucose (74-106) mg/dL Lactic Acid 1.1 (0.4-2.0) Calcium (8.4-10.2) mg/dL Magnesium (1.6-2.3) mg/dL Total Bilirubin (0.2-1.3) mg/dL AST (17-59) U/L ALT (0-50) U/L Alkaline Phosphatase (38-126) U/L Troponin I (0.000-0.034) ng/mL NT-Pro-B Natriuret Pep (<300) pg/mL Serum Total Protein (6.3-8.2) g/dL Albumin (3.5-5.0) g/dL Influenza Type A Ag NEGATIVE (NEGATIVE) Influenza Type B Ag NEGATIVE (NEGATIVE) RSV (PCR) NEGATIVE (NEGATIVE) SARS-CoV-2 (PCR) POSITIVE A (NEGATIVE) - Progress Progress: improved Medical Desision Making - Risk of complications The pt has a mod risk of morbidity or mortality based on: Need for prescription drug management - Departure Departure Disposition: Home Clinical Impression: COVID Condition: Stable Critical Care Time: No Referrals: YUKI MENDOZA DO [Primary Care Provider] - Follow up/PCP as directed Instructions: COVID-19 (DC) Prescriptions: Dexamethasone 4 mg [Decadron 4 MG] 4 mg PO BID 3 Days #6 tablet Nirmatrelvir/Ritonavir [Paxlovid 150-100 mg Dose Pack] 1 each PO DAILY 5 Days #1 packet
[2023-06-29] MEDS ORDERED: Klor Con PO ONE (12:15)
[2023-06-29] MEDS ORDERED: Zofran 4 MG/2 ML VIAL IV PRN (12:20)
--- NOTE | 2023-06-29 12:22 | PCM.HP ---
History of Present Illness - Chief Complaint Chief Complaint: covid Date: 06/29/23 History of Present Illness: is a 73 year old male with PMHX of CAD, HTN, COPD, OA, CKD, Prostate problems, and on Eliquis for hx of stent placement. He presented to the ER with a complaint of CP, shortness of breath, increased heart rate, COPD exacerbation, and N/V since Thursday and Thursday. Chest pain was in center of chest and did not radiate. No current CP. SOB has improved since admission. Standing, walking, or laying does not change the level of SOB he is having. He has not had any documented fever. He does have a cough producing white sputum. Chest XR shows left base fibrosis and scarring. Vital signs are stable and O2 is 92 % on room air, placed on 2LNC. Will start steroids, breathing txs, and Remdesivir. Most likely will d/c tomorrow if improved. - Review of Systems Constitutional: No Fever, No Chills Eyes: No Symptoms Ears, Nose, & Throat: No Symptoms Respiratory: Cough, Short Of Breath Cardiac: Chest Pain, No Edema, No Syncope Abdominal/Gastrointestinal: No Abdominal Pain, No Nausea, No Vomiting, No Diarrhea Genitourinary Symptoms: No Dysuria Musculoskeletal: No Back Pain, No Neck Pain Skin: No Rash Neurological: No Dizziness, No Focal Weakness, No Sensory Changes Psychological: No Symptoms Endocrine: No Symptoms Hematologic/Lymphatic: No Symptoms Immunological/Allergic: No Symptoms Medications & Allergies Home Medications: Home Medication List Aspirin EC 81 mg [Ecotrin 81 mg] 81 mg PO DAILY 04/15/19 [History Confirmed 06/29/23] Apixaban [Eliquis] 5 mg PO BID 02/12/21 [History Confirmed 06/29/23] Atorvastatin Calcium 80 mg PO QHS 02/07/22 [History Confirmed 06/29/23] Metoprolol Succinate 25 mg Xl* [Toprol-Xl 25MG Tablets] 25 mg PO DAILY 10/07/22 [History Confirmed 06/29/23] Potassium Chloride Tab* [Klor Con] 10 meq PO DAILY 30 Days #30 tablet 10/09/22 [Rx Confirmed 06/29/23] Cholecalciferol (Vitamin D3) [Vitamin D3] 1 tab PO HS 01/01/23 [History Confirmed 06/29/23] Levothyroxine Sodium 75 Mcg [Synthroid 75 Mcg] 75 mg PO DAILY 01/01/23 [History Confirmed 06/29/23] Cyanocobalamin (Vitamin B-12) [Cyanocobalamin Injection] 1 ml SQ DIRECTIONS UNKNOWN 01/14/23 [History Confirmed 06/29/23] Fluticasone/Vilanterol [Breo Ellipta 200-25 Mcg Inhalr] 1 puff PO DAILY 01/14/23 [History Confirmed 06/29/23] Dexamethasone 4 mg [Decadron 4 MG] 4 mg PO BID 3 Days #6 tablet 06/29/23 [Rx] Nirmatrelvir/Ritonavir [Paxlovid 150-100 mg Dose Pack] 1 each PO DAILY 5 Days #1 packet 06/29/23 [Rx] Allergies/Adverse Reactions: Allergies Allergy/AdvReac Type Severity Reaction Status Date / Time levofloxacin Allergy Intermediate Hives Verified 06/29/23 09:21 - Past Medical History Past Medical History: Yes Neurological History: No Pertinent History ENT History: Cataracts Cardiac History: Coronary Artery Disease, Hypertension Respiratory History: COPD Endocrine Medical History: No Pertinent History Musculoskelatal History: Osteoarthritis GI Medical History: Gallbladder Disease History: Renal Disease Pyscho-Social History: No Pertinent History Male Reproductive Disorders: Prostate Problems Comment: PT. REPORTS CARDIAC CATH W/ STENTS IN HIS PMH. PT. DOES TAKE ELIQUIS FOR ANTICOAGULANT - Past Surgical History Past Surgical History: Yes Neuro Surgical History: No Pertinent History Cardiac History: Cardiac Catheterization, Cardiac Stent Respiratory Surgery: No Pertinent History GI Surgical History: Cholecystectomy Genitourinary Surgical Hx: No Pertinent History Musculskeletal Surgical Hx: Other Male Surgical History: Other Other Surgical History: Mediastinoscopy and " urologic procedure." 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 2022 "pt states has had several removed and has 2 places presently that need removed". nerve surgery to left foot around the ankle in Apr, 2022. - Social History Smoking Status: Never smoker Exposure to second hand smoke: No Alcohol: None Drug Use: none Significant Family History: heart disease - Physical Exam Vital Signs: Vital Signs - 24 hr Temp Pulse Resp BP BP Pulse Ox 06/29/23 11:20 92 L 06/29/23 11:00 112 H 17 128/77 92 L 06/29/23 10:45 112 H 20 105/78 92 L 06/29/23 10:30 116 H 18 118/77 93 L 06/29/23 10:15 120 H 32 H 132/67 91 L 06/29/23 10:00 124 H 23 113/70 92 L 06/29/23 09:45 124 H 22 110/66 92 L 06/29/23 09:36 128 H 24 95/64 89 L 06/29/23 09:15 99.1 F 129 H 20 118/82 91 L General Appearance: no apparent distress, alert Neurologic Exam: alert, oriented x 3, cooperative, normal mood/affect, nml cerebellar function, nml station & gait, sensation nml, No motor deficits Eye Exam: PERRL/EOMI, eyes nml inspection Ears, Nose, Throat Exam: normal ENT inspection, TMs normal, pharynx normal, moist mucous membranes Neck Exam: normal inspection, non-tender, supple, full range of motion Respiratory Exam: normal breath sounds, lungs clear, No respiratory distress Cardiovascular Exam: regular rate/rhythm, normal heart sounds, normal peripheral pulses Gastrointestinal/Abdomen Exam: soft, normal bowel sounds, No tenderness, No mass Back Exam: normal inspection, normal range of motion, No CVA tenderness, No vertebral tenderness Extremity Exam: normal inspection, normal range of motion, pelvis stable Skin Exam: normal color, warm, dry, No rash Lymphatic Exam: No adenopathy Results - Labs Lab/Micro Results: Lab Results-Last 24 Hours 06/29/23 06/29/23 06/29/23 Range/Units 10:00 10:10 10:15 WBC 6.8 (4.0-10.5) x10^3/uL RBC 5.28 (4.1-5.6) x10^6/uL Hgb 16.4 (12.5-18.0) g/dL Hct 50.0 (42-50) % MCV 94.7 (78-100) fL MCH 31.1 (26-32) pg MCHC 32.8 (32-36) g/dL RDW 13.3 (11.5-14.0) % Plt Count 156 (150-450) x10^3/uL MPV 9.0 (7.5-11.0) fL Gran % 72.5 H (36.0-66.0) % Immature Gran % (Auto) 0.3 (0.00-0.4) % Nucleat RBC Rel Count 0.0 (0.00-0.1) % Eos # (Auto) 0.07 (0-0.5) x10^3/uL Immature Gran # (Auto) 0.02 (0.00-0.03) x10^3u/L Absolute Lymphs (auto) 1.47 (1.0-4.6) x10^3/uL Absolute Monos (auto) 0.31 (0.0-1.3) x10^3/uL Absolute Nucleated RBC 0.00 (0.00-0.01) x10^3u/L Lymphocytes % 21.6 L (24.0-44.0) % Monocytes % 4.5 (0.0-12.0) % Eosinophils % 1.0 (0.00-5.0) % Basophils % 0.1 (0.0-0.4) % Absolute Granulocytes 4.94 (1.4-6.9) x10^3/uL Basophils # 0.01 (0-0.4) x10^3/uL PT (9.4-12.5) SECONDS INR (0.8-3.0) APTT (25.1-36.5) SECONDS D-Dimer (0.0-0.50) mg/L Sodium (137-145) mmol/L Potassium (3.5-5.1) mmol/L Chloride (98-107) mmol/L Carbon Dioxide (22-30) mmol/L Anion Gap (5-15) MEQ/L BUN (9-20) mg/dL Creatinine (0.66-1.25) mg/dL Estimated GFR ML/MIN Glucose (74-106) mg/dL Lactic Acid 1.1 (0.4-2.0) Calcium (8.4-10.2) mg/dL Magnesium (1.6-2.3) mg/dL Total Bilirubin (0.2-1.3) mg/dL AST (17-59) U/L ALT (0-50) U/L Alkaline Phosphatase (38-126) U/L Troponin I (0.000-0.034) ng/mL NT-Pro-B Natriuret Pep (<300) pg/mL Serum Total Protein (6.3-8.2) g/dL Albumin (3.5-5.0) g/dL Influenza Type A Ag NEGATIVE (NEGATIVE) Influenza Type B Ag NEGATIVE (NEGATIVE) RSV (PCR) NEGATIVE (NEGATIVE) SARS-CoV-2 (PCR) POSITIVE A (NEGATIVE) 06/29/23 06/29/23 06/29/23 Range/Units 10:15 10:15 10:15 WBC (4.0-10.5) x10^3/uL RBC (4.1-5.6) x10^6/uL Hgb (12.5-18.0) g/dL Hct (42-50) % MCV (78-100) fL MCH (26-32) pg MCHC (32-36) g/dL RDW (11.5-14.0) % Plt Count (150-450) x10^3/uL MPV (7.5-11.0) fL Gran % (36.0-66.0) % Immature Gran % (Auto) (0.00-0.4) % Nucleat RBC Rel Count (0.00-0.1) % Eos # (Auto) (0-0.5) x10^3/uL Immature Gran # (Auto) (0.00-0.03) x10^3u/L Absolute Lymphs (auto) (1.0-4.6) x10^3/uL Absolute Monos (auto) (0.0-1.3) x10^3/uL Absolute Nucleated RBC (0.00-0.01) x10^3u/L Lymphocytes % (24.0-44.0) % Monocytes % (0.0-12.0) % Eosinophils % (0.00-5.0) % Basophils % (0.0-0.4) % Absolute Granulocytes (1.4-6.9) x10^3/uL Basophils # (0-0.4) x10^3/uL PT 11.2 (9.4-12.5) SECONDS INR 1.03 (0.8-3.0) APTT 30.8 (25.1-36.5) SECONDS D-Dimer 0.36 (0.0-0.50) mg/L Sodium 136 L (137-145) mmol/L Potassium 3.3 L (3.5-5.1) mmol/L Chloride 105 (98-107) mmol/L Carbon Dioxide 20 L (22-30) mmol/L Anion Gap 14.4 (5-15) MEQ/L BUN 14 (9-20) mg/dL Creatinine 1.00 (0.66-1.25) mg/dL Estimated GFR 78.5 ML/MIN Glucose 138 H (74-106) mg/dL Lactic Acid (0.4-2.0) Calcium 8.5 (8.4-10.2) mg/dL Magnesium 1.9 (1.6-2.3) mg/dL Total Bilirubin 1.70 H (0.2-1.3) mg/dL AST 41 (17-59) U/L ALT 62 H (0-50) U/L Alkaline Phosphatase 133 H (38-126) U/L Troponin I < 0.012 (0.000-0.034) ng/mL NT-Pro-B Natriuret Pep 224 (<300) pg/mL Serum Total Protein 6.9 (6.3-8.2) g/dL Albumin 3.8 (3.5-5.0) g/dL Influenza Type A Ag (NEGATIVE) Influenza Type B Ag (NEGATIVE) RSV (PCR) (NEGATIVE) SARS-CoV-2 (PCR) (NEGATIVE) - Radiology Impressions Radiology Exams & Impressions: Radiology Procedures Category Date Time Status CHEST 1 VIEW (PORTABLE) Stat Exams 06/29/23 09:16 Completed - Other Procedures and Tests Respiratory Therapy 06/29/23 11:38 Oxygen Nasal Cannula 2 lpm Assessment/Plan (1) COVID Current Visit: Yes Status: Acute Assessment & Plan: - + Covid test in ER - Remdesivir, Decadron, breathing txs - RT eval and treat - keep O2 > 92% - Baseline RA - N/V: Zofran, IV fluids Code(s): U07.1 - COVID-19 (2) COPD exacerbation Current Visit: No Status: Acute Assessment & Plan: - Chest XR 06/29/23 Portable chest again demonstrates CT proven left base fibrosis/scarring and small calcified granuloma. Remaining heart and lungs unremarkable. Bony thorax intact again with osteopenia and mild degenerative changes. No new/acute findings. - WBC not elevated. - Antibiotics not needed at this time. 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 tomorrow Code(s): I10 - ESSENTIAL (PRIMARY) HYPERTENSION
[2023-06-29] MEDS ORDERED: TYLENOL 325 MG PO PRN (12:25)
[2023-06-29] MEDS ORDERED: Docusate Sodium 100 MG PO PRN (12:25)
[2023-06-29] MEDS ORDERED: VENTOLIN COMMON CANISTER IH PRN (13:39)
[2023-06-29] MEDS: DECADRON 10MG INJ. IV SCH (13:57)
[2023-06-29] MEDS: Klor Con PO SCH (13:57)
[2023-06-29] MEDS: SYNTHROID 75 MCG PO SCH (13:57)
[2023-06-29] MEDS: ECOTRIN 81 MG PO SCH (13:57)
[2023-06-29] MEDS: ELIQUIS 2.5 MG TABLET PO SCH ×2 (13:57→20:13)
[2023-06-29] MEDS: Toprol-Xl 25MG Tablets PO SCH (13:58)
[2023-06-29] MEDS ORDERED: REMDESIVIR 200 MG in Sodium Chloride 0.9% 250 ML 250 ML IV ONE (14:00)
[2023-06-29] MEDS ORDERED: NON-FORMULARY ITEM (Apixaban [Eliquis] 5 MG Tab.Ds.Pk) PO SCH (14:00)
--- NOTE | 2023-06-29 15:23 | XRAY ---
Indication: Elevated ALT. Cholecystectomy. Two-dimensional right upper quadrant abdominal sonogram performed. Comparison: None Clinical Law Professor notes limited exam due to overlying bowel gas. Visualized liver appears homogeneous in echogenicity. No free fluid. Gallbladder surgically absent. Common bile duct measures 2.2 mm. No intrahepatic biliary distention. Remaining visual pancreas and right kidney are sonographically unremarkable. Right kidney measures 9.2 x 4.7 x 3.8 cm. Impression: Cholecystectomy. Otherwise grossly negative right upper quadrant sonogram.
[2023-06-29] MEDS: VENTOLIN COMMON CANISTER IH SCH (19:59)
[2023-06-29] MEDS: ZOCOR 20MG PO SCH (20:13)
[2023-06-29] MEDS: VITAMIN D PO SCH (20:13)
[2023-06-29] MEDS ORDERED: NON-FORMULARY ITEM (Atorvastatin Calcium [Atorvastatin Calcium] 80 MG Tablet) PO SCH (22:00)
[2023-06-29] MEDS ORDERED: CHOLECALCIFEROL 25 MCG PO SCH (22:00)
[2023-06-30] MEDS: Sodium Chloride 0.9% 1000 ML 1,000 ML IV SCH ×2 (04:24→22:51)
[2023-06-30 05:04] LABS: Hematocrit 41.5 % (42-50); Hemoglobin 13.7 g/dL (12.5-18.0); Mean Cell Volume 94.1 fL (78-100); Mean Corpuscular Hemoglobin 31.1 pg (26-32); Mean Platelet Volume 9.3 fL (7.5-11.0); Platelet Count 139 x10^3/uL (150-450); Red Blood Count 4.41 x10^6/uL (4.1-5.6); Red Cell Distribution Width 13.1 % (11.5-14.0); White Blood Count 10.6 x10^3/uL (4.0-10.5)
[2023-06-30 05:16] LABS: ALBUMIN 3.1 g/dL (3.5-5.0); ANION GAP 10.9 MEQ/L (5-15); BILIRUBIN,TOTAL 0.7 mg/dL (0.2-1.3); Calcium 7.9 mg/dL (8.4-10.2); Creatinine 1 0.85 mg/dL (0.66-1.25); EST GLOMERULAR FILTRATION RATE 90.6 ML/MIN; Potassium 3.9 mmol/L (3.5-5.1); Total Protein 5.8 g/dL (6.3-8.2)
[2023-06-30 08:25] LABS: ALBUMIN 3.1 g/dL (3.5-5.0); ANION GAP 11.5 MEQ/L (5-15); BILIRUBIN,TOTAL 0.8 mg/dL (0.2-1.3); Creatinine 1 0.81 mg/dL (0.66-1.25); Potassium 4.1 mmol/L (3.5-5.1); Total Protein 5.8 g/dL (6.3-8.2)
[2023-06-30] MEDS: DECADRON 10MG INJ. IV SCH (09:18)
[2023-06-30] MEDS: ECOTRIN 81 MG PO SCH (09:19)
[2023-06-30] MEDS: Klor Con PO SCH (09:19)
[2023-06-30] MEDS: SYNTHROID 75 MCG PO SCH (09:19)
[2023-06-30] MEDS: SODIUM BICARBONATE PO SCH ×2 (09:20→23:27)
[2023-06-30] MEDS: Toprol-Xl 25MG Tablets PO SCH (09:20)
[2023-06-30] MEDS: ELIQUIS 2.5 MG TABLET PO SCH ×2 (09:20→22:51)
--- NOTE | 2023-06-30 09:25 | PCM.NOTE ---
Date and Time: 06/30/23918 Subjective Assessment: 06/29/23 is a 73 year old male with PMHX of CAD, HTN, COPD, OA, CKD, Prostate problems, and on Eliquis for hx of stent placement. He presented to the ER with a complaint of CP, shortness of breath, increased heart rate, COPD exacerbation, and N/V since Thursday and Thursday. Chest pain was in center of chest and did not radiate. No current CP. SOB has improved since admission. Standing, walking, or laying does not change the level of SOB he is having. He has not had any documented fever. He does have a cough producing white sputum. Chest XR shows left base fibrosis and scarring. Vital signs are stable and O2 is 92 % on room air, placed on 2LNC. Will start steroids, breathing txs, and Remdesivir. Most likely will d/c tomorrow if improved. 06/30/23 Pt sitting up in bed today. He reports he is feeling better and not requiring oxygen. O2 94% on room air. Bicarb is 17 after recheck. Will start oral sodium bicarb. Cough with white sputum production improved. Will continue with another day of steroids, breathing txs, and Remdesivir. will most likely d/c tomorrow. - Review of Systems Constitutional: No Fever, No Chills Eyes: No Symptoms Ears, Nose, & Throat: No Symptoms Respiratory: No Cough, No Short Of Breath Cardiac: No Chest Pain, No Edema, No Syncope Abdominal/Gastrointestinal: No Abdominal Pain, No Nausea, No Vomiting, No Diarrhea Genitourinary Symptoms: No Dysuria Musculoskeletal: No Back Pain, No Neck Pain Skin: No Rash Neurological: No Dizziness, No Focal Weakness, No Sensory Changes Psychological: No Symptoms Endocrine: No Symptoms Hematologic/Lymphatic: No Symptoms Immunological/Allergic: No Symptoms Objective Exam General Appearance: no apparent distress, alert Neurologic Exam: alert, oriented x 3, cooperative, normal mood/affect, nml cerebellar function, sensation nml, No motor deficits Skin Exam: normal color, warm, dry Eye Exam: PERRL, EOMI, eyes nml inspection Ears, Nose, Throat Exam: normal ENT inspection, pharynx normal, moist mucous membranes Neck Exam: normal inspection, non-tender, supple, full range of motion Respiratory Exam: normal breath sounds, lungs clear, No respiratory distress Cardiovascular Exam: regular rate/rhythm, normal heart sounds Gastrointestinal/Abdomen Exam: soft, No tenderness, No mass Extremity Exam: normal inspection, normal range of motion Back Exam: normal inspection, normal range of motion, No CVA tenderness, No vertebral tenderness Male Genitalia Exam: deferred Rectal Exam: deferred OBJECTIVE DATA Vital Signs: Vital Signs - 24 hr Temp Pulse Resp BP BP Pulse Ox 06/30/23 08:00 97.8 F 70 16 113/65 94 L 06/30/23 06:00 97.8 F 70 16 113/65 94 L 06/30/23 03:46 17 06/30/23 03:05 97.2 F 71 17 100/54 92 L 06/30/23 01:50 81 16 100 06/30/23 01:44 17 06/30/23 00:00 17 06/29/23 23:33 97.3 F 79 17 123/65 90 L 06/29/23 22:00 88 18 90 L 06/29/23 20:00 96.9 F 86 14 111/62 94 L 06/29/23 19:59 94 H 20 92 L 06/29/23 18:00 77 19 93 L 06/29/23 16:57 93 L 06/29/23 16:17 96 06/29/23 16:00 97.4 F 72 19 116/75 93 L 06/29/23 14:06 99.3 F 98 H 20 120/76 95 06/29/23 14:00 91 H 19 96 06/29/23 13:39 93 H 20 94 L 06/29/23 11:20 92 L 06/29/23 11:00 112 H 17 128/77 92 L 06/29/23 10:45 112 H 20 105/78 92 L 06/29/23 10:30 116 H 18 118/77 93 L 06/29/23 10:15 120 H 32 H 132/67 91 L 06/29/23 10:00 124 H 23 113/70 92 L 06/29/23 09:45 124 H 22 110/66 92 L 06/29/23 09:36 128 H 24 95/64 89 L Pain Assessment - Last Documented Pain Intensity 0 Intake and Output: Intake & Output 06/27/23 06/28/23 06/29/23 06/30/23 11:59 11:59 11:59 11:59 Intake Total 2445 Output Total 200 Balance 2245 Weight 74.8 kg 77.6 kg Lab Results: Lab Results-Last 24 Hours 06/29/23 06/29/23 06/29/23 Range/Units 10:00 10:10 10:15 WBC 6.8 (4.0-10.5) x10^3/uL RBC 5.28 (4.1-5.6) x10^6/uL Hgb 16.4 (12.5-18.0) g/dL Hct 50.0 (42-50) % MCV 94.7 (78-100) fL MCH 31.1 (26-32) pg MCHC 32.8 (32-36) g/dL RDW 13.3 (11.5-14.0) % Plt Count 156 (150-450) x10^3/uL MPV 9.0 (7.5-11.0) fL Gran % 72.5 H (36.0-66.0) % Immature Gran % (Auto) 0.3 (0.00-0.4) % Nucleat RBC Rel Count 0.0 (0.00-0.1) % Eos # (Auto) 0.07 (0-0.5) x10^3/uL Immature Gran # (Auto) 0.02 (0.00-0.03) x10^3u/L Absolute Lymphs (auto) 1.47 (1.0-4.6) x10^3/uL Absolute Monos (auto) 0.31 (0.0-1.3) x10^3/uL Absolute Nucleated RBC 0.00 (0.00-0.01) x10^3u/L Lymphocytes % 21.6 L (24.0-44.0) % Monocytes % 4.5 (0.0-12.0) % Eosinophils % 1.0 (0.00-5.0) % Basophils % 0.1 (0.0-0.4) % Absolute Granulocytes 4.94 (1.4-6.9) x10^3/uL Basophils # 0.01 (0-0.4) x10^3/uL PT (9.4-12.5) SECONDS INR (0.8-3.0) APTT (25.1-36.5) SECONDS D-Dimer (0.0-0.50) mg/L Sodium (137-145) mmol/L Potassium (3.5-5.1) mmol/L Chloride (98-107) mmol/L Carbon Dioxide (22-30) mmol/L Anion Gap (5-15) MEQ/L BUN (9-20) mg/dL Creatinine (0.66-1.25) mg/dL Estimated GFR ML/MIN Glucose (74-106) mg/dL POC Glucometer (74 to 106) mg/dL Lactic Acid 1.1 (0.4-2.0) Calcium (8.4-10.2) mg/dL Magnesium (1.6-2.3) mg/dL Total Bilirubin (0.2-1.3) mg/dL AST (17-59) U/L ALT (0-50) U/L Alkaline Phosphatase (38-126) U/L Troponin I (0.000-0.034) ng/mL NT-Pro-B Natriuret Pep (<300) pg/mL Serum Total Protein (6.3-8.2) g/dL Albumin (3.5-5.0) g/dL Influenza Type A Ag NEGATIVE (NEGATIVE) Influenza Type B Ag NEGATIVE (NEGATIVE) RSV (PCR) NEGATIVE (NEGATIVE) SARS-CoV-2 (PCR) POSITIVE A (NEGATIVE) 06/29/23 06/29/23 06/29/23 Range/Units 10:15 10:15 10:15 WBC (4.0-10.5) x10^3/uL RBC (4.1-5.6) x10^6/uL Hgb (12.5-18.0) g/dL Hct (42-50) % MCV (78-100) fL MCH (26-32) pg MCHC (32-36) g/dL RDW (11.5-14.0) % Plt Count (150-450) x10^3/uL MPV (7.5-11.0) fL Gran % (36.0-66.0) % Immature Gran % (Auto) (0.00-0.4) % Nucleat RBC Rel Count (0.00-0.1) % Eos # (Auto) (0-0.5) x10^3/uL Immature Gran # (Auto) (0.00-0.03) x10^3u/L Absolute Lymphs (auto) (1.0-4.6) x10^3/uL Absolute Monos (auto) (0.0-1.3) x10^3/uL Absolute Nucleated RBC (0.00-0.01) x10^3u/L Lymphocytes % (24.0-44.0) % Monocytes % (0.0-12.0) % Eosinophils % (0.00-5.0) % Basophils % (0.0-0.4) % Absolute Granulocytes (1.4-6.9) x10^3/uL Basophils # (0-0.4) x10^3/uL PT 11.2 (9.4-12.5) SECONDS INR 1.03 (0.8-3.0) APTT 30.8 (25.1-36.5) SECONDS D-Dimer 0.36 (0.0-0.50) mg/L Sodium 136 L (137-145) mmol/L Potassium 3.3 L (3.5-5.1) mmol/L Chloride 105 (98-107) mmol/L Carbon Dioxide 20 L (22-30) mmol/L Anion Gap 14.4 (5-15) MEQ/L BUN 14 (9-20) mg/dL Creatinine 1.00 (0.66-1.25) mg/dL Estimated GFR 78.5 ML/MIN Glucose 138 H (74-106) mg/dL POC Glucometer (74 to 106) mg/dL Lactic Acid (0.4-2.0) Calcium 8.5 (8.4-10.2) mg/dL Magnesium 1.9 (1.6-2.3) mg/dL Total Bilirubin 1.70 H (0.2-1.3) mg/dL AST 41 (17-59) U/L ALT 62 H (0-50) U/L Alkaline Phosphatase 133 H (38-126) U/L Troponin I < 0.012 (0.000-0.034) ng/mL NT-Pro-B Natriuret Pep 224 (<300) pg/mL Serum Total Protein 6.9 (6.3-8.2) g/dL Albumin 3.8 (3.5-5.0) g/dL Influenza Type A Ag (NEGATIVE) Influenza Type B Ag (NEGATIVE) RSV (PCR) (NEGATIVE) SARS-CoV-2 (PCR) (NEGATIVE) 06/29/23 06/29/23 06/29/23 Range/Units 13:29 17:05 17:11 WBC (4.0-10.5) x10^3/uL RBC (4.1-5.6) x10^6/uL Hgb (12.5-18.0) g/dL Hct (42-50) % MCV (78-100) fL MCH (26-32) pg MCHC (32-36) g/dL RDW (11.5-14.0) % Plt Count (150-450) x10^3/uL MPV (7.5-11.0) fL Gran % (36.0-66.0) % Immature Gran % (Auto) (0.00-0.4) % Nucleat RBC Rel Count (0.00-0.1) % Eos # (Auto) (0-0.5) x10^3/uL Immature Gran # (Auto) (0.00-0.03) x10^3u/L Absolute Lymphs (auto) (1.0-4.6) x10^3/uL Absolute Monos (auto) (0.0-1.3) x10^3/uL Absolute Nucleated RBC (0.00-0.01) x10^3u/L Lymphocytes % (24.0-44.0) % Monocytes % (0.0-12.0) % Eosinophils % (0.00-5.0) % Basophils % (0.0-0.4) % Absolute Granulocytes (1.4-6.9) x10^3/uL Basophils # (0-0.4) x10^3/uL PT (9.4-12.5) SECONDS INR (0.8-3.0) APTT (25.1-36.5) SECONDS D-Dimer (0.0-0.50) mg/L Sodium (137-145) mmol/L Potassium (3.5-5.1) mmol/L Chloride (98-107) mmol/L Carbon Dioxide (22-30) mmol/L Anion Gap (5-15) MEQ/L BUN (9-20) mg/dL Creatinine (0.66-1.25) mg/dL Estimated GFR ML/MIN Glucose (74-106) mg/dL POC Glucometer 181 H (74 to 106) mg/dL Lactic Acid (0.4-2.0) Calcium (8.4-10.2) mg/dL Magnesium (1.6-2.3) mg/dL Total Bilirubin (0.2-1.3) mg/dL AST (17-59) U/L ALT (0-50) U/L Alkaline Phosphatase (38-126) U/L Troponin I < 0.012 < 0.012 (0.000-0.034) ng/mL NT-Pro-B Natriuret Pep (<300) pg/mL Serum Total Protein (6.3-8.2) g/dL Albumin (3.5-5.0) g/dL Influenza Type A Ag (NEGATIVE) Influenza Type B Ag (NEGATIVE) RSV (PCR) (NEGATIVE) SARS-CoV-2 (PCR) (NEGATIVE) 06/30/23 06/30/23 06/30/23 Range/Units 04:00 04:42 06:22 WBC 10.6 H (4.0-10.5) x10^3/uL RBC 4.41 (4.1-5.6) x10^6/uL Hgb 13.7 (12.5-18.0) g/dL Hct 41.5 L (42-50) % MCV 94.1 (78-100) fL MCH 31.1 (26-32) pg MCHC 33.0 (32-36) g/dL RDW 13.1 (11.5-14.0) % Plt Count 139 L (150-450) x10^3/uL MPV 9.3 (7.5-11.0) fL Gran % (36.0-66.0) % Immature Gran % (Auto) (0.00-0.4) % Nucleat RBC Rel Count (0.00-0.1) % Eos # (Auto) (0-0.5) x10^3/uL Immature Gran # (Auto) (0.00-0.03) x10^3u/L Absolute Lymphs (auto) (1.0-4.6) x10^3/uL Absolute Monos (auto) (0.0-1.3) x10^3/uL Absolute Nucleated RBC (0.00-0.01) x10^3u/L Lymphocytes % (24.0-44.0) % Monocytes % (0.0-12.0) % Eosinophils % (0.00-5.0) % Basophils % (0.0-0.4) % Absolute Granulocytes (1.4-6.9) x10^3/uL Basophils # (0-0.4) x10^3/uL PT (9.4-12.5) SECONDS INR (0.8-3.0) APTT (25.1-36.5) SECONDS D-Dimer (0.0-0.50) mg/L Sodium 134 L (137-145) mmol/L Potassium 3.9 (3.5-5.1) mmol/L Chloride 112 H (98-107) mmol/L Carbon Dioxide 15 L* (22-30) mmol/L Anion Gap 10.9 (5-15) MEQ/L BUN 21 H (9-20) mg/dL Creatinine 0.85 (0.66-1.25) mg/dL Estimated GFR 90.6 ML/MIN Glucose 128 H (74-106) mg/dL POC Glucometer 131 H (74 to 106) mg/dL Lactic Acid (0.4-2.0) Calcium 7.9 L (8.4-10.2) mg/dL Magnesium 2.0 (1.6-2.3) mg/dL Total Bilirubin 0.70 (0.2-1.3) mg/dL AST 24 (17-59) U/L ALT 42 (0-50) U/L Alkaline Phosphatase 89 (38-126) U/L Troponin I (0.000-0.034) ng/mL NT-Pro-B Natriuret Pep (<300) pg/mL Serum Total Protein 5.8 L (6.3-8.2) g/dL Albumin 3.1 L (3.5-5.0) g/dL Influenza Type A Ag (NEGATIVE) Influenza Type B Ag (NEGATIVE) RSV (PCR) (NEGATIVE) SARS-CoV-2 (PCR) (NEGATIVE) 06/30/23 Range/Units 08:05 WBC (4.0-10.5) x10^3/uL RBC (4.1-5.6) x10^6/uL Hgb (12.5-18.0) g/dL Hct (42-50) % MCV (78-100) fL MCH (26-32) pg MCHC (32-36) g/dL RDW (11.5-14.0) % Plt Count (150-450) x10^3/uL MPV (7.5-11.0) fL Gran % (36.0-66.0) % Immature Gran % (Auto) (0.00-0.4) % Nucleat RBC Rel Count (0.00-0.1) % Eos # (Auto) (0-0.5) x10^3/uL Immature Gran # (Auto) (0.00-0.03) x10^3u/L Absolute Lymphs (auto) (1.0-4.6) x10^3/uL Absolute Monos (auto) (0.0-1.3) x10^3/uL Absolute Nucleated RBC (0.00-0.01) x10^3u/L Lymphocytes % (24.0-44.0) % Monocytes % (0.0-12.0) % Eosinophils % (0.00-5.0) % Basophils % (0.0-0.4) % Absolute Granulocytes (1.4-6.9) x10^3/uL Basophils # (0-0.4) x10^3/uL PT (9.4-12.5) SECONDS INR (0.8-3.0) APTT (25.1-36.5) SECONDS D-Dimer (0.0-0.50) mg/L Sodium 137 (137-145) mmol/L Potassium 4.1 (3.5-5.1) mmol/L Chloride 113 H (98-107) mmol/L Carbon Dioxide 17 L (22-30) mmol/L Anion Gap 11.5 (5-15) MEQ/L BUN 21 H (9-20) mg/dL Creatinine 0.81 (0.66-1.25) mg/dL Estimated GFR 92.0 ML/MIN Glucose 133 H (74-106) mg/dL POC Glucometer (74 to 106) mg/dL Lactic Acid (0.4-2.0) Calcium 8.0 L (8.4-10.2) mg/dL Magnesium (1.6-2.3) mg/dL Total Bilirubin 0.80 (0.2-1.3) mg/dL AST 24 (17-59) U/L ALT 41 (0-50) U/L Alkaline Phosphatase 90 (38-126) U/L Troponin I (0.000-0.034) ng/mL NT-Pro-B Natriuret Pep (<300) pg/mL Serum Total Protein 5.8 L (6.3-8.2) g/dL Albumin 3.1 L (3.5-5.0) g/dL Influenza Type A Ag (NEGATIVE) Influenza Type B Ag (NEGATIVE) RSV (PCR) (NEGATIVE) SARS-CoV-2 (PCR) (NEGATIVE) Radiology Exams: Radiology Procedures Category Date Time Status CHEST 1 VIEW (PORTABLE) Stat Exams 06/29/23 09:16 Completed US ABDOMEN LIMITED [ABDOMINAL-LIMITED] [US] Routine Exams 06/29/23 13:08 Completed Assessment/Plan (1) COVID Current Visit: Yes Status: Acute Assessment & Plan: - + Covid test in ER - Remdesivir, Decadron, breathing txs - RT eval and treat - keep O2 > 92% - Baseline RA - N/V: Zofran, IV fluids 06/30 - sxs improved - RA- 94% Code(s): U07.1 - COVID-19 (2) COPD exacerbation Current Visit: No Status: Acute Assessment & Plan: - Chest XR 06/29/23 Portable chest again demonstrates CT proven left base fibrosis/scarring and small calcified granuloma. Remaining heart and lungs unremarkable. Bony thorax intact again with osteopenia and mild degenerative changes. No new/acute findings. - WBC not elevated. - Antibiotics not needed at this time. Code(s): J44.1 - CHRONIC OBSTRUCTIVE PULMONARY DISEASE W (ACUTE) EXACERBATION (3) ALT (SGPT) level raised Current Visit: Yes Status: Acute Assessment & Plan: - ALT 62- trend - may be related to COVID - US abd.- pending -No abd pain - hx ETOH use 06/30 -Abd US 06/29/23 Cholecystectomy. Otherwise grossly negative right upper quadrant sonogram. 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 Current Visit: Yes Status: Acute Assessment & Plan: - Eliquis- continue - hx of cardiac stents Code(s): Z79.01 - GROUP HOME (CURRENT) USE OF 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 (5) Hypokalemia Current Visit: Yes Status: Acute Assessment & Plan: - K+ 3.3 replaced - trend 06/30 -K+ 4.1- WNL Code(s): E87.6 - HYPOKALEMIA (6) Hyponatremia Current Visit: Yes Status: Acute Assessment & Plan: - Na+ 136- Mild - Trend 06/30 -Na+ 131- mild - Trend - NS @ 100 - eating and drinking well Code(s): E87.1 - HYPO-OSMOLALITY AND HYPONATREMIA (7) Metabolic acidosis Current Visit: Yes Status: Acute Assessment & Plan: - Start Sodium bicarb - Co2 17 - trend - 2:2 COVID sxs/ Chronic COPD Code(s): E87.20 - ACIDOSIS, UNSPECIFIED (8) HTN (hypertension) Current Visit: Yes Status: Acute Assessment & Plan: - stable - continue home meds VTE: Eliquis Next of kin: Aixa Cates [phone] D/C plan: ? tomorrow Code(s): I10 - ESSENTIAL (PRIMARY) HYPERTENSION
[2023-06-30] MEDS: VENTOLIN COMMON CANISTER IH SCH ×2 (09:40→19:10)
[2023-06-30] MEDS ORDERED: NON-FORMULARY ITEM (Fluticasone/Vilanterol [Breo Ellipta 200-25 Mcg Inhalr] 1 EACH Blst.W. PO SCH (10:00)
[2023-06-30] MEDS ORDERED: REMDESIVIR 100 MG in Sodium Chloride 100ML MINI-BAG PLUS 100 ML IV SCH (14:00)
[2023-06-30] MEDS: VITAMIN D PO SCH (22:51)
[2023-06-30] MEDS: ZOCOR 20MG PO SCH (22:51)
[2023-07-01] MEDS: VENTOLIN COMMON CANISTER IH SCH (05:19)
[2023-07-01 05:27] LABS: Hemoglobin 12.5 g/dL (12.5-18.0); Mean Cell Volume 94.8 fL (78-100); Mean Corpuscular Hemoglobin 31.2 pg (26-32); Mean Corpuscular Hgb Concent. 32.9 g/dL (32-36); Mean Platelet Volume 9.2 fL (7.5-11.0); Platelet Count 163 x10^3/uL (150-450); Red Blood Count 4.01 x10^6/uL (4.1-5.6); Red Cell Distribution Width 13.8 % (11.5-14.0); White Blood Count 14.7 x10^3/uL (4.0-10.5)
[2023-07-01 06:04] LABS: ALBUMIN 2.7 g/dL (3.5-5.0); ANION GAP 12.7 MEQ/L (5-15); BILIRUBIN,TOTAL 0.5 mg/dL (0.2-1.3); Calcium 7.8 mg/dL (8.4-10.2); Creatinine 1 0.72 mg/dL (0.66-1.25); EST GLOMERULAR FILTRATION RATE 95.3 ML/MIN; Potassium 4.1 mmol/L (3.5-5.1); Total Protein 5.3 g/dL (6.3-8.2)
[2023-07-01] MEDS: DECADRON 10MG INJ. IV SCH (10:20)
[2023-07-01] MEDS: SYNTHROID 75 MCG PO SCH (10:21)
[2023-07-01] MEDS: ECOTRIN 81 MG PO SCH (10:21)
[2023-07-01] MEDS: ELIQUIS 2.5 MG TABLET PO SCH (10:21)
[2023-07-01] MEDS: Klor Con PO SCH (10:21)
[2023-07-01] MEDS: Toprol-Xl 25MG Tablets PO SCH (10:22)
[2023-07-01] MEDS: SODIUM BICARBONATE PO SCH (10:22)
--- NOTE | 2023-07-01 11:18 | PCM.DS ---
Discharge Summary Date of Admission: 06/29/23 11:50 Date of Discharge: 07/01/23 Admitting Physician: IMANI MCKEON MD Primary Care Provider: YKUI MENDOZA DO Allergies Allergies levofloxacin Allergy (Intermediate, Verified 06/29/23 09:21) [facility] Summary - Hospital Course Hospital Course: 06/29/23 is a 73 year old male with PMHX of CAD, HTN, COPD, OA, CKD, Prostate problems, and on Eliquis for hx of stent placement. He presented to the ER with a complaint of CP, shortness of breath, increased heart rate, COPD exacerbation, and N/V since Thursday and Thursday. Chest pain was in center of chest and did not radiate. No current CP. SOB has improved since admission. Standing, walking, or laying does not change the level of SOB he is having. He has not had any documented fever. He does have a cough producing white sputum. Chest XR shows left base fibrosis and scarring. Vital signs are stable and O2 is 92 % on room air, placed on 2LNC. Will start steroids, breathing txs, and Remdesivir. Most likely will d/c tomorrow if improved. 06/30/23 Pt sitting up in bed today. He reports he is feeling better and not requiring oxygen. O2 94% on room air. Bicarb is 17 after recheck. Will start oral sodium bicarb. Cough with white sputum production improved. Will continue with another day of steroids, breathing txs, and Remdesivir. will most likely d/c tomorrow. 07/01/23 Pt sitting up in chair. Pt states he feels better and wants to go home. He denies SOB, cough, or CP. Discussed labs and that his carbon dioxide remains low. Will d/c with oral Bicarb and he will need to f/u with his PCP this week for f/u OP. Will also d/c with steroids for COVID with chronic COPD. He denies any further concerns at this time. - Vitals & Intake/Output Vital Signs: Vital Signs Temperature 96.6 F 07/01/23 08:00 Pulse Rate 100 H 07/01/23 08:00 Respiratory Rate 18 07/01/23 08:00 Blood Pressure 124/64 07/01/23 08:00 O2 Sat by Pulse Oximetry 93 L 07/01/23 08:00 Intake & Output: Intake & Output 06/28/23 06/29/23 06/30/23 07/01/23 11:59 11:59 11:59 11:59 Intake Total 2925 4286 Output Total 200 1490 Balance 2725 9466 Weight 74.8 kg 77.6 kg - Lab Result Diagrams: 07/01/23 04:25 07/01/23 04:25 Lab Results-Last 24 Hrs: Lab Results-Last 24 Hours 06/30/23 06/30/23 06/30/23 Range/Units 11:14 14:53 22:39 WBC (4.0-10.5) x10^3/uL RBC (4.1-5.6) x10^6/uL Hgb (12.5-18.0) g/dL Hct (42-50) % MCV (78-100) fL MCH (26-32) pg MCHC (32-36) g/dL RDW (11.5-14.0) % Plt Count (150-450) x10^3/uL MPV (7.5-11.0) fL Sodium (137-145) mmol/L Potassium (3.5-5.1) mmol/L Chloride (98-107) mmol/L Carbon Dioxide (22-30) mmol/L Anion Gap (5-15) MEQ/L BUN (9-20) mg/dL Creatinine (0.66-1.25) mg/dL Estimated GFR ML/MIN Glucose (74-106) mg/dL POC Glucometer 131 H 142 H 146 H (74 to 106) mg/dL Calcium (8.4-10.2) mg/dL Total Bilirubin (0.2-1.3) mg/dL AST (17-59) U/L ALT (0-50) U/L Alkaline Phosphatase (38-126) U/L Serum Total Protein (6.3-8.2) g/dL Albumin (3.5-5.0) g/dL 07/01/23 07/01/23 07/01/23 Range/Units 04:25 04:25 07:33 WBC 14.7 H (4.0-10.5) x10^3/uL RBC 4.01 L (4.1-5.6) x10^6/uL Hgb 12.5 (12.5-18.0) g/dL Hct 38.0 L (42-50) % MCV 94.8 (78-100) fL MCH 31.2 (26-32) pg MCHC 32.9 (32-36) g/dL RDW 13.8 (11.5-14.0) % Plt Count 163 (150-450) x10^3/uL MPV 9.2 (7.5-11.0) fL Sodium 140 (137-145) mmol/L Potassium 4.1 (3.5-5.1) mmol/L Chloride 114 H (98-107) mmol/L Carbon Dioxide 17 L (22-30) mmol/L Anion Gap 12.7 (5-15) MEQ/L BUN 25 H (9-20) mg/dL Creatinine 0.72 (0.66-1.25) mg/dL Estimated GFR 95.3 ML/MIN Glucose 122 H (74-106) mg/dL POC Glucometer 120 H (74 to 106) mg/dL Calcium 7.8 L (8.4-10.2) mg/dL Total Bilirubin 0.50 (0.2-1.3) mg/dL AST 20 (17-59) U/L ALT 33 (0-50) U/L Alkaline Phosphatase 76 (38-126) U/L Serum Total Protein 5.3 L (6.3-8.2) g/dL Albumin 2.7 L (3.5-5.0) g/dL Micro Results-Entire Visit: Accuchecks Date 07/01/23 Date 06/30/23 Date 06/30/23 Time 08:01 Time 15:27 Time 11:41 - Radiology Exams Ordered Rad Exams-Entire Visit: Radiology Procedures Category Date Time Status US ABDOMEN LIMITED [ABDOMINAL-LIMITED] [US] Routine Exams 06/29/23 13:08 Completed - Procedures and Test Procedures and Tests throughout Hospitalization: Therapy Orders & Screens 06/29/23 11:38 Oxygen Nasal Cannula 2 lpm Comment: 06/29/23 12:25 PT Eval & Treat ( Order) ONCE Reason for Eval:: COVID, COPD Diagnosis: covid Respiratory Therapy Consult ROUTINE Comment: Reason For Exam: Diagnosis: covid 06/29/23 13:39 Respiratory Therapy Assessment DAILY Comment: Diagnosis: covid Discharge Exam General Appearance: no apparent distress, alert Neurologic Exam: alert, oriented x 3, cooperative, normal mood/affect, nml cerebellar function, sensation nml, No motor deficits Eye Exam: PERRL, EOMI, eyes nml inspection Ears, Nose, Throat Exam: normal ENT inspection, pharynx normal, moist mucous membranes Neck Exam: normal inspection, non-tender, supple, full range of motion Respiratory Exam: normal breath sounds, lungs clear, No respiratory distress Cardiovascular Exam: regular rate/rhythm, normal heart sounds Gastrointestinal/Abdomen Exam: soft, No tenderness, No mass Male Genitalia Exam: deferred Rectal Exam: deferred Back Exam: normal inspection, normal range of motion, No CVA tenderness, No v ertebral tenderness Extremity Exam: normal inspection, normal range of motion Skin Exam: normal color, warm, dry Final Diagnosis/Problem List - Final Discharge Diagnosis/Problem (1) COVID Current Visit: Yes Status: Acute Code(s): U07.1 - COVID-19 (2) COPD exacerbation Current Visit: No Status: Acute Code(s): J44.1 - CHRONIC OBSTRUCTIVE PULMONARY DISEASE W (ACUTE) EXACERBATION (3) ALT (SGPT) level raised Current Visit: Yes Status: Acute Code(s): R74.01 - ELEVATION OF LEVELS OF LIVER TRANSAMINASE LEVELS (4) 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 Current Visit: Yes Status: Acute Code(s): 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.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 (5) Hypokalemia Current Visit: Yes Status: Acute Code(s): E87.6 - HYPOKALEMIA (6) Hyponatremia Current Visit: Yes Status: Acute Code(s): E87.1 - HYPO-OSMOLALITY AND HYPONATREMIA (7) Metabolic acidosis Current Visit: Yes Status: Acute Code(s): E87.20 - ACIDOSIS, UNSPECIFIED (8) HTN (hypertension) Current Visit: Yes Status: Acute Assessment & Plan: (1) COVID Current Visit: Yes Status: Acute Assessment & Plan: - + Covid test in ER - Remdesivir, Decadron, breathing txs - RT eval and treat - keep O2 > 92% - Baseline RA - N/V: Zofran, IV fluids 06/30 - sxs improved - RA- 94% 07/01 - Discussed CDC guidelines for isolation OP - RA 93% - will d/c with steriods Code(s): U07.1 - COVID-19 (2) COPD exacerbation Current Visit: No Status: Acute Assessment & Plan: - Chest XR 06/29/23 Portable chest again demonstrates CT proven left base fibrosis/scarring and small calcified granuloma. Remaining heart and lungs unremarkable. Bony thorax intact again with osteopenia and mild degenerative changes. No new/acute findings. - WBC not elevated. - Antibiotics not needed at this time. - steroids Code(s): J44.1 - CHRONIC OBSTRUCTIVE PULMONARY DISEASE W (ACUTE) EXACERBATION (3) ALT (SGPT) level raised Current Visit: Yes Status: Acute Assessment & Plan: - ALT 62- trend - may be related to COVID - US abd.- pending -No abd pain - hx ETOH use 06/30 -Abd US 06/29/23 Cholecystectomy. Otherwise grossly negative right upper quadrant sonogram. 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 Current Visit: Yes Status: Acute Assessment & Plan: - Eliquis- continue - hx of cardiac stents Code(s): Z79.01 - PENITENTIARY (CURRENT) USE OF 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 (5) Hypokalemia Current Visit: Yes Status: Acute Assessment & Plan: - K+ 3.3 replaced - trend 06/30 -K+ 4.1- WNL- resolved Code(s): E87.6 - HYPOKALEMIA (6) Hyponatremia Current Visit: Yes Status: Acute Assessment & Plan: - Na+ 136- Mild - Trend 06/30 -Na+ 131- mild - Trend - NS @ 100 - eating and drinking well 07/01 - resolved Code(s): E87.1 - HYPO-OSMOLALITY AND HYPONATREMIA (7) Metabolic acidosis Current Visit: Yes Status: Acute Assessment & Plan: - Start Sodium bicarb - Co2 17 - trend - 2:2 COVID sxs/ Chronic COPD 07/01 - carbon dioxide 17- resume sodium bicarb OP - F/u with PCP Code(s): E87.20 - ACIDOSIS, UNSPECIFIED (8) HTN (hypertension) Current Visit: Yes Status: Acute Assessment & Plan: - stable - continue home meds Code(s): I10 - ESSENTIAL (PRIMARY) HYPERTENSION - Discharge Discharge Date: 07/01/23 Disposition: Home, Self-Care Condition: Stable Prescriptions: New Dexamethasone 4 mg [Decadron 4 MG] 4 mg PO BID 3 Days #6 tablet Nirmatrelvir/Ritonavir [Paxlovid 150-100 mg Dose Pack] 1 each PO DAILY 5 Days #1 packet Docusate Sodium 100 mg [Docusate Sodium 100 MG] 100 mg PO BIDPRN PRN 30 Days #60 cap PRN Reason: Constipation Sodium Bicarbonate 650 mg PO BID 10 Days #20 tablet Continue Aspirin EC 81 mg [Ecotrin 81 mg] 81 mg PO DAILY Apixaban [Eliquis] 5 mg PO BID Atorvastatin Calcium 80 mg PO QHS Metoprolol Succinate 25 mg Xl* [Toprol-Xl 25MG Tablets] 25 mg PO DAILY Potassium Chloride Tab* [Klor Con] 10 meq PO DAILY 30 Days #30 tablet Levothyroxine Sodium 75 Mcg [Synthroid 75 Mcg] 75 mg PO DAILY Cholecalciferol (Vitamin D3) [Vitamin D3] 1 tab PO HS Cyanocobalamin (Vitamin B-12) [Cyanocobalamin Injection] 1 ml SQ DIRECTIONS UNKNOWN Fluticasone/Vilanterol [Breo Ellipta 200-25 Mcg Inhalr] 1 puff PO DAILY Additional Instructions: [facility] HAS BEEN SET UP- THEY WILL CONTACT YOU TO ARRANGE A TIME TO COME SEE YOU. THEIR PHONE NUMBER IS [phone] IF YOU NEED ANYTHING BEFORE THEIR FIRST VISIT You do not need to take Paxlovid that was sent in by ER prior to admission. Do not pick this up at the pharmacy. Follow up with: MITALI LECHUGA [NON-STAFF PHY W/O PRIVILEGES] - 07/14/23 10:30 am ([facility]) YUKI MENDOZA DO [Primary Care Provider] - 07/07/23 3:30 pm ALLISON MEJIA [CONSULTING PHYSICIAN] - 07/16/23 9:30 am ([facility])
[2023-07-01 13:30] VITALS: BP 122/65; PULSE 60; RESP 16; TEMP 97; O2SAT 98
[2023-07-15] MEDS ORDERED: Cyanocobalamin B-12 1000 MCG/ML SQ SCH (10:00)
== END 2023-07-01 12:00 | disposition home health service (06) ==
LOC: ED 09:11 → MED SURG 11:50
PROVIDERS: ADMIT Internal Medicine; ATTEND Internal Medicine
DX: U07.1 COVID-19 (principal); J44.1 Chronic obstructive pulmonary disease with (acute) exacerbation; R74.01 Elevation of levels of liver transaminase levels; E87.6 Hypokalemia; E87.1 Hypo-osmolality and hyponatremia; E87.20 Acidosis, unspecified; I10 Essential (primary) hypertension; I25.10 Atherosclerotic heart disease of native coronary artery without angina pectoris; I12.9 Hypertensive chronic kidney disease with stage 1 through stage 4 chronic kidney disease, or unspecified chronic kidney disease; N18.9 Chronic kidney disease, unspecified; R07.9 Chest pain, unspecified; Z20.828 Contact with and (suspected) exposure to other viral communicable diseases; Z79.899 Other long term (current) drug therapy; Z79.01 Long term (current) use of anticoagulants
CPT/HCPCS: 0241U; 36000; 36415; 71045; 76705; 80053; 82947; 83605; 83735; 83880; 84484; 85025; 85027; 85379; 85610; 85730; 93005; 94640; 94762; 97161; 99285; Q3014; 93268; J0248; J1100; A9270-GY; G0378

== ENCOUNTER 2023-11-02 15:32 | Emergency (ER) | payer MEDICARE ==
[2023-11-02] MEDS ORDERED: Adacel Vial IM ONE (15:45)
[2023-11-02] MEDS: Adacel Vial IM ONE (15:47)
[2023-11-02 15:49] VITALS: TEMP 99.4; O2SAT 92
--- NOTE | 2023-11-02 16:11 | XRAY ---
Indication: Pain following injury. Comparison: April 02, 2023 3 view right hand unchanged again demonstrating osteopenia, old 2nd metacarpal head fracture, mild degenerative changes all IP joints, mild 1st metacarpal multangular scaphoid degenerative changes, radial carpal joint space narrowing, and extensive vascular calcifications. No new/acute findings.
--- NOTE | 2023-11-02 16:17 | ERPHSYRPT ---
- History of Present Illness Time Seen by Provider: 11/02/23 16:13 Source: patient Exam Limitations: no limitations Patient Subjective Stated Complaint: "I was putting in a bathtub this morning and my hand got caught and cut my fingers". Triage Nursing Assessment: Pt presents to ER with complaints of right hand injury / finger laceration. Pt's 2nd and 3rd digits have lacerations approx 1cm in length. Bleeding controlled. Pt does state he is on blood thinners. Pt states injuries occurred this morning at approx 0930 while trying to install a bathtub. Pt has limited ROM in fingers of right hand. Pt is alert and oriented x 3. Rates pain 10/10 scale. Respirations are easy. Able to ambulate and communicate in full sentences. Physician History: Patient is here with right hand injury. Patient has 2 abrasions over his second and third digit, dorsal surface. Bleeding well-controlled. States that happened around 9:30 AM while installing a bathtub. Limited range of motion secondary to pain. Alert and oriented x 3. Has tried some [id number] medications. He is on a blood thinner. Allergies/Adverse Reactions: levofloxacin Allergy (Intermediate, Verified 11/02/23 15:51) Hives Home Medications: Aspirin EC 81 mg [Ecotrin 81 mg] 81 mg PO DAILY 04/15/19 [History] Apixaban [Eliquis] 5 mg PO BID 02/12/21 [History] Atorvastatin Calcium 80 mg PO QHS 02/07/22 [History] Metoprolol Succinate 25 mg Xl* [Toprol-Xl 25MG Tablets] 25 mg PO DAILY 10/07/22 [History] Cholecalciferol (Vitamin D3) [Vitamin D3] 1 tab PO HS 01/01/23 [History] Levothyroxine Sodium 75 Mcg [Synthroid 75 Mcg] 75 mg PO DAILY 01/01/23 [History] Fluticasone/Vilanterol [Breo Ellipta 200-25 Mcg Inhalr] 1 puff PO DAILY 01/14/23 [History] Hx Tetanus, Diphtheria Vaccination/Date Given: No Hx Influenza Vaccination/Date Given: No Hx Pneumococcal Vaccination/Date Given: No Immunizations Up to Date: No Travel Risk - International Travel Have you traveled outside of the country in past 3 weeks: No - Emerging Infectious Disease Are you exhibiting symptoms associated with any current EIDs: No - Past Medical History Pertinent Past Medical History: Yes Neurological History: No Pertinent History ENT History: Cataracts Cardiac History: Coronary Artery Disease, Hypertension Respiratory History: COPD Endocrine Medical History: No Pertinent History Musculoskeletal History: Osteoarthritis GI Medical History: Gallbladder Disease History: Renal Disease Psycho-Social History: No Pertinent History Male Reproductive Disorders: Prostate Problems Other Medical History: PT. REPORTS CARDIAC CATH W/ STENTS IN HIS PMH. PT. 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 2022 "pt states has had several removed and has 2 places presently that need removed". nerve surgery to left foot around the ankle in Apr, 2022. Significant Family History: heart disease - Social History Smoking Status: Never smoker Exposure to second hand smoke: No Alcohol Use: None Drug Use: none Patient Lives Alone: No () - Nursing Vital Signs Nursing Vital Signs: Initial Vital Signs Temperature 99.4 F 11/02/23 15:39 Pulse Rate 115 H 11/02/23 15:39 Respiratory Rate 18 11/02/23 15:39 Blood Pressure 127/92 11/02/23 15:39 O2 Sat by Pulse Oximetry 92 L 11/02/23 15:39 Pain Scale Pain Intensity 6 - Physical Exam SpO2 Interpretation: normal SpO2: 92 Comments: 11/02/23 16:30 Review of Systems Constitutional: Negative for fever. HENT: Negative for congestion. Respiratory: Negative for shortness of breath. Cardiovascular: Negative for chest pain. Gastrointestinal: Negative for abdominal pain. Genitourinary: Negative for dysuria. Musculoskeletal: Negative for back pain. Skin: Negative for rash. Neurological: Negative for headaches. Psychiatric/Behavioral: Negative for behavioral problems. All other systems reviewed and are negative. Physical Exam Vitals signs and nursing note reviewed. Constitutional: Appearance: Patient is well-developed. HENT: Head: Normocephalic and atraumatic. Eyes: Conjunctiva/sclera: Conjunctivae normal. Neck: Musculoskeletal: Normal range of motion. Trachea: No tracheal deviation. Cardiovascular: Rate and Rhythm: Normal rate. Pulmonary: Effort: Pulmonary effort is normal. No respiratory distress. Abdominal: Palpations: Abdomen is soft. Musculoskeletal: General: Right hand injury. Abrasions over second and third dorsal fingers. No obvious deformity, sensation intact, 2+ capillary refill, 2 point tactile discrimination intact. 5 out of 5 strength. Full range of motion with pain. Compartments are soft, nontender. Bleeding well-controlled. Skin: General: Skin is warm and dry. Neurological/ Psychiatric: Mental Status: Mental status, behavior, interaction with environment is appropriate for patient's age and condition - Course Nursing assessment & vital signs reviewed: Yes Ordered Tests: Active Orders 24 hr Category Date Time Status Wound Care STAT Care 11/02/23 16:25 Active HAND (MINIMUM 3 VIEWS) Stat Exams 11/02/23 15:41 Completed Medication Summary Discontinued Medications Generic Name Dose Route Start Last Admin Trade Name Freq PRN Reason Stop Dose Admin Diphtheria/Tetanus/Acell Pertussis 0.5 ml 11/02/23 15:42 11/02/23 15:47 Tdap --Diph,Pertuss(Acell),Tet Vac/Pf 0.5 Ml Vial IM 11/02/23 15:43 0.5 ml .ONCE ONE Administration Diphtheria/Tetanus/Acell Pertussis Confirm 11/02/23 15:45 Tdap --Diph,Pertuss(Acell),Tet Vac/Pf 0.5 Ml Vial Administered 11/02/23 15:46 Dose 0.5 ml IM .STK-MED ONE - Progress Progress: improved Progress Note: 11/02/23 16:31 X-ray demonstrates no fracture today. I do believe these abrasions will heal on their own. They were wrapped in Vaseline gauze, cleaned well. No oral antibiotics at this point in time. Close follow-up with PCP. Return here for any new or changing symptoms. Counseled pt/family regarding: diagnosis, need for follow-up, rad results Medical Desision Making - Independent Historian Additional History obtained from: Spouse - External Record(s) Reviewed Records reviewed as a part of evaluation & management: Discharge Summary - Diagnostic Testing Radiological Interpretation: Interpreted by me - Risk of complications Minimal Risk: Minimal risk of morbidity - Departure Departure Disposition: Home Clinical Impression: Injury of right hand, Abrasion of right hand, Sprain of right hand Condition: Stable Critical Care Time: No Referrals: KATLYN,NATALEE LUKAS, ENGINEERING INSTRUCTOR [Primary Care Provider] - Follow up/PCP as directed Instructions: Wound Care (DC)
[2023-11-02 16:27] VITALS: RESP 16
[2023-11-02 16:31] VITALS: BP 124/77; PULSE 96
== END 2023-11-02 16:33 | disposition home or self-care (01) ==
LOC: ED 15:32
DX: S63.91XA Sprain of unspecified part of right wrist and hand, initial encounter (principal); S60.410A Abrasion of right index finger, initial encounter; S60.412A Abrasion of right middle finger, initial encounter; W23.0XXA Caught, crushed, jammed, or pinched between moving objects, initial encounter; I10 Essential (primary) hypertension; Z79.01 Long term (current) use of anticoagulants; Z79.899 Other long term (current) drug therapy; Z23 Encounter for immunization
CPT/HCPCS: 73130; 90471; 90715; 99283

== ENCOUNTER 2023-12-15 00:08 | Emergency (ER) | payer MEDICARE ==
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
[2023-12-15 01:07] VITALS: RESP 16; TEMP 98.9
[2023-12-15] MEDS ORDERED: Sterile H2O 10 ml IJ ONE (01:17)
[2023-12-15] MEDS ORDERED: PERCOCET TABLET 5/325MG ONE ×2 (01:17→02:07)
[2023-12-15] MEDS ORDERED: solu-MEDROL ONE (01:17)
[2023-12-15] MEDS ORDERED: Norflex 60 MG/2 ML ONE (01:17)
[2023-12-15] MEDS: PERCOCET TABLET 5/325MG PO STA ×2 (01:22→02:09)
[2023-12-15] MEDS: solu-MEDROL 125 MG, Sterile H2O 10 ml 2 ML IM ONE (01:24)
[2023-12-15] MEDS: Norflex 60 MG/2 ML IM ONE (01:24)
--- NOTE | 2023-12-15 01:59 | XRAY ---
CLINICAL HISTORY: injury COMPARISON: None TECHNIQUE: x-ray of the left-sided ribs focused views FINDINGS: No definite acute osseous abnormality is noted. No evidence of pneumothorax. No evidence of subcutaneous emphysema A small/tiny nodule in the left lung lower zone measuring 4.52 x 4.27 mm. Degenerative changes involving the spine. IMPRESSION: 1. No definite acute osseous abnormality is noted. 2. A small/tiny nodule in the left lung lower zone measuring 4.52 x 4.27 mm. 3. advise clinical goals follow-up, if clinically desired CT scan can be obtained for further evaluation DISCLAIMER:A subtle bone abnormality or fracture may not be readily apparent on x-rays, thus clinical correlation and further imaging including follow up CT, MRI, or follow up x-rays are advised as needed. Electronically Signed by: Rosita Hinds MD. (12/15/2023 01:55:27 EDT)
[2023-12-15 02:03] VITALS: BP 126/72; O2SAT 93
[2023-12-15 02:20] VITALS: PULSE 70
== END 2023-12-15 02:15 | disposition home or self-care (01) ==
LOC: ED 00:08
DX: S20.212A Contusion of left front wall of thorax, initial encounter (principal); W22.09XA Striking against other stationary object, initial encounter; I10 Essential (primary) hypertension; E78.5 Hyperlipidemia, unspecified; Z79.01 Long term (current) use of anticoagulants; Z79.891 Long term (current) use of opiate analgesic; Z79.52 Long term (current) use of systemic steroids; Z79.899 Other long term (current) drug therapy
CPT/HCPCS: 71100; 96372; 99284; J2360; J2919; A9270-GY

== ENCOUNTER 2024-01-18 21:46 | Emergency (ER) | payer MEDICARE ==
[2024-01-18 22:19] VITALS: RESP 18; TEMP 98.2; O2SAT 93
--- NOTE | 2024-01-18 22:27 | ERPHSYRPT ---
- History of Present Illness Source: patient Exam Limitations: no limitations Patient Subjective Stated Complaint: Patient states he cut his hand on a copper piece of pipe just prior to coming into the ER this evening. Triage Nursing Assessment: Patient ambulated back to ER with a papertowel wrapped around his left hand. Towel removed with a skin tear noted underneath. Skin tear is ^ shaped. Each side measures 1.6cm. Skin replaced and area cleansed with sterile water and hibiclens. No active bleeding at this time. Bruising present around skin tear. Physician History: 74-year-old male with skin tear on the dorsal aspect of his left hand after injury on a piece of copper at his home. Patient is right-handed. Pain is minimal. He is also up-to-date on his Tdap. No other injuries at this time. Occurred: just prior to arrival Method of Injury: incised Severity of Pain-Max: mild Severity of Pain-Current: mild Extremities Pain Location: hand: left Modifying Factors: Improves With: movement Associated Symptoms: none Allergies/Adverse Reactions: levofloxacin Allergy (Intermediate, Verified 01/18/24 21:59) Hives Home Medications: Aspirin EC 81 mg [Ecotrin 81 mg] 81 mg PO DAILY 04/15/19 [History] Apixaban [Eliquis] 5 mg PO BID 02/12/21 [History] Atorvastatin Calcium 80 mg PO QHS 02/07/22 [History] Metoprolol Succinate 25 mg Xl* [Toprol-Xl 25MG Tablets] 25 mg PO DAILY 10/07/22 [History] Levothyroxine Sodium 75 Mcg [Synthroid 75 Mcg] 75 mg PO DAILY 01/01/23 [History] Fluticasone/Vilanterol [Breo Ellipta 200-25 Mcg Inhalr] 1 puff PO DAILY 01/14/23 [History] Hx Tetanus, Diphtheria Vaccination/Date Given: No Hx Influenza Vaccination/Date Given: No Hx Pneumococcal Vaccination/Date Given: No Travel Risk - International Travel Have you traveled outside of the country in past 3 weeks: No - Emerging Infectious Disease Are you exhibiting symptoms associated with any current EIDs: No - Review of Systems Constitutional: No Symptoms Eyes: No Symptoms Ears, Nose, & Throat: No Symptoms Respiratory: No Symptoms Cardiac: No Symptoms Abdominal/Gastrointestinal: No Symptoms Genitourinary Symptoms: No Symptoms Skin: No Symptoms Neurological: No Symptoms Psychological: No Symptoms Endocrine: No Symptoms Hematologic/Lymphatic: No Symptoms Immunological/Allergic: No Symptoms - Past Medical History Pertinent Past Medical History: Yes Neurological History: No Pertinent History ENT History: Cataracts Cardiac History: Coronary Artery Disease, High Cholesterol, Hypertension Respiratory History: COPD Endocrine Medical History: Hypothyroidism Musculoskeletal History: Osteoarthritis GI Medical History: Gallbladder Disease History: Renal Disease Psycho-Social History: No Pertinent History Male Reproductive Disorders: Prostate Problems Other Medical History: PT. REPORTS CARDIAC CATH W/ STENTS IN HIS PMH. PT. DOES TAKE ELIQUIS FOR ANTICOAGULANT - Past Surgical History Past Surgical History: Yes Neuro Surgical History: No Pertinent History Cardiac: Cardiac Catheterization, Cardiac Stent Respiratory: No Pertinent History Gastrointestinal: Cholecystectomy Genitourinary: No Pertinent History Musculoskeletal: Other Male Surgical History: Other Other Surgical History: Cancerous skin removal from face, nerve surgery to left foot around the ankle Significant Family History: heart disease - Social History Smoking Status: Never smoker Exposure to second hand smoke: No Alcohol Use: None Drug Use: none Patient Lives Alone: No () - Social Determinants of Health Will the patient participate in the screening: Yes Do you worry about a steady place to live?: No Do you have any problems with any of the following?: No known problems In the past 12 months,have you had to go without utilities?: No Transportation Issues: No Has anyone in your support network made you feel unsafe?: No Have you or anyone in your house had to go without enough: No - Nursing Vital Signs Nursing Vital Signs: Initial Vital Signs Temperature 98.2 F 01/18/24 22:01 Pulse Rate 92 H 01/18/24 22:01 Respiratory Rate 18 01/18/24 22:01 Blood Pressure 128/68 01/18/24 22:01 O2 Sat by Pulse Oximetry 93 L 01/18/24 22:01 Pain Scale Pain Intensity 8 Within normal limits for patient - Physical Exam General Appearance: no apparent distress Eyes, Ears, Nose, Throat Exam: normal ENT inspection Neck Exam: normal inspection, non-tender, supple, full range of motion Cardiovascular/Respiratory Exam: normal breath sounds, regular rate/rhythm, heart sounds normal Abdominal Exam: non-tender, soft Back Exam: normal inspection, normal range of motion Shoulder Exam: normal inspection Elbow/Forearm Exam: normal inspection Wrist Exam: normal inspection Hand Exam: laceration ( skin tear left dorsal hand which is 1.6 cm x 1.6 cm, good hemostasis, good distal capillary return and sensation of all digits, full range of motion of all digits) Neuro/Tendon Exam: normal sensation, normal motor functions, normal tendon functions, responds to pain, no evidence tendon injury, No motor deficit, No sensory deficit Mental Status Exam: alert, oriented x 3, cooperative Skin Exam: normal color, warm, dry SpO2 Interpretation: borderline oxygenation SpO2: 93 O2 Delivery: Room Air Procedures - Laceration/Wound Repair Left Hand Time of Procedure: 22:32 Wound Location: Left Wound Length (cm): 1.6 Wound's Depth, Shape: superficial, flap Wound Explored: clean Hibiclens Prep: Yes Wound Repaired With: Steri-strips ( Steri-Strip per nursing/neurovascular intact post application) Sterile Dressing Applied?: Yes - Course Nursing assessment & vital signs reviewed: Yes - Progress Progress: improved Progress Note: 01/18/24 22:27 Nursing note and vital signs reviewed. No further housing insecurity noted. Left dorsal hand skin tear which was 1.6 cm and 1.6 cm cleansed with Hibiclens per nursing, Steri-Strip per nursing, neurovascular intact post application. He was advised to keep the Steri-Strips on until they fall for 3 weeks, also advised to keep the laceration dry for 3 days and then okay to wash 1-2 times a day with mild soap and water without scrubbing, and to watch for signs of infection- increasing pain, any pus, temperature greater 100.5, increasing redness, or increased swelling. Patient had a good distal capillary return and sensation of all 5 digits of left hand with full range of motion of all 5 digits. Discharged in stable condition. 01/18/24 22:29 Counseled pt/family regarding: diagnosis, need for follow-up Medical Desision Making - Risk of complications Low Risk: Low risk of morbidity from additional dx testing or treatment - Departure Departure Disposition: Home Clinical Impression: Skin tear of left hand without complication Condition: Stable Critical Care Time: No Referrals: NATALEE POTTS NP [Primary Care Provider] - Follow up/PCP as directed Instructions: Wound Care (DC) Additional Instructions: Keep laceration dry for 5 days, then okay to wash 1-2 times a day with mild soap and water but do not scrub keep Steri-Strips on until they fall off or 3 weeks Return to ER for increasing pain, any pus, temperature greater 100.5, increasing swelling, or increasing redness.
[2024-01-18 22:40] VITALS: BP 127/64; PULSE 80
== END 2024-01-18 22:36 | disposition home or self-care (01) ==
LOC: ED 21:46
DX: S61.412A Laceration without foreign body of left hand, initial encounter (principal); W26.8XXA Contact with other sharp object(s), not elsewhere classified, initial encounter; E78.5 Hyperlipidemia, unspecified; I10 Essential (primary) hypertension; Z79.01 Long term (current) use of anticoagulants; Z79.899 Other long term (current) drug therapy
CPT/HCPCS: 99282

== ENCOUNTER 2024-06-01 18:05 | Emergency (ER) | payer MEDICARE ==
[2024-06-01 18:22] VITALS: BP 125/62; PULSE 81; RESP 20; TEMP 97.6; O2SAT 95
--- NOTE | 2024-06-01 18:26 | ERPHSYRPT ---
- History of Present Illness Time Seen by Provider: 06/01/24 18:20 Source: patient Exam Limitations: no limitations Patient Subjective Stated Complaint: Wound Check Triage Nursing Assessment: Patient ambulated back to ED and transferred self to bed. Patient A+O X 3. Patient's skin pink, warm and dry. Patient states he cut his left hand middle digit between 1st and 2nd knuckle with a piece of metal on Thursday. Patient went to and they steri stripped it. Patient states it won't stop bleeding. Upon assessment healing skin tear noted to left hand, middle digit inbetween 1st and 2nd knuckle 2.3 cm X 0.3 cm with no bleeding noted. Patient denies pain or discomfort. Patient states his tetanus is up to date. Physician History: 74yo m presents via private vehicle for skin tear that occurred 3d ago. Pt reports he cut his hand on a piece of metal, reports he has had difficulty w/ hemostasis. Pt reports he is on a blood thinner and bleeds easily. Pt reports he is up to date on tetanus vaccinations. Pt denies any falls or other trauma. Timing/Duration: day(s) (3) Quality: painful Severity: mild Location: hands Associated Symptoms: denies symptoms Allergies/Adverse Reactions: levofloxacin Allergy (Intermediate, Verified 06/01/24 18:14) Hives Home Medications: Aspirin EC 81 mg [Ecotrin 81 mg] 81 mg PO DAILY 04/15/19 [History] Apixaban [Eliquis] 5 mg PO BID 02/12/21 [History] Atorvastatin Calcium 80 mg PO QHS 02/07/22 [History] Metoprolol Succinate 25 mg Xl* [Toprol-Xl 25MG Tablets] 25 mg PO DAILY 10/07/22 [History] Levothyroxine Sodium 75 Mcg [Synthroid 75 Mcg] 75 mg PO DAILY 01/01/23 [History] Fluticasone/Vilanterol [Breo Ellipta 200-25 Mcg Inhalr] 1 puff PO DAILY 01/14/23 [History] Hx Tetanus, Diphtheria Vaccination/Date Given: Yes (2023) Hx Influenza Vaccination/Date Given: Yes Hx Pneumococcal Vaccination/Date Given: No Immunizations Up to Date: Yes Travel Risk - International Travel Have you traveled outside of the country in past 3 weeks: No - Emerging Infectious Disease Are you exhibiting symptoms associated with any current EIDs: No - Review of Systems Constitutional: No Symptoms Respiratory: No Symptoms Cardiac: No Symptoms Skin: Other (skin tear left hand) - Past Medical History Pertinent Past Medical History: Yes Neurological History: Seizures ENT History: Cataracts Cardiac History: Arrhythmia, High Cholesterol, Hypertension Respiratory History: COPD, Pulmonary Embolism Endocrine Medical History: Hypothyroidism Musculoskeletal History: Osteoarthritis GI Medical History: Gallbladder Disease History: Renal Disease Psycho-Social History: No Pertinent History Male Reproductive Disorders: Prostate Problems Other Medical History: A-FIB, COPD, NEURPATHIC PAIN, HLD, HYPOTHYROID, DILATED CARDIOMYOPATHY, SICK SINUS SYNDROME, CARDIAC STENTS, RENAL INSUFFICIENCY, MEDIASTINAL LYMPHOADENOPATHY, HX OF SKIN CANCER (HE REPORTS FINDING A NEW SPOT AND GOING TO FOLLOW UP AGAIN), POLYMYALGIA. HE REPORTS HX OF INJURYING LLE BUT UNABLE TO RECALL WHAT HAPPENED. GALL BLADDER REMOVAL, HX OF L FOOT SX BUT UNABLE TO RECALL WHAT WAS DONE DURING SX. - Past Surgical History Past Surgical History: Yes Neuro Surgical History: No Pertinent History Cardiac: Cardiac Catheterization, Cardiac Stent Respiratory: No Pertinent History Gastrointestinal: Cholecystectomy Genitourinary: No Pertinent History Musculoskeletal: Other Male Surgical History: Other Other Surgical History: Cancerous skin removal from face, nerve surgery to left foot around the ankle Significant Family History: heart disease - Social History Smoking Status: Never smoker Exposure to second hand smoke: No Alcohol Use: None Drug Use: none Patient Lives Alone: No () - Social Determinants of Health Will the patient participate in the screening: Yes Do you worry about a steady place to live?: No Do you have any problems with any of the following?: No known problems In the past 12 months,have you had to go without utilities?: No Transportation Issues: No Has anyone in your support network made you feel unsafe?: No Have you or anyone in your house had to go without enough: No - Nursing Vital Signs Nursing Vital Signs: Initial Vital Signs Temperature 97.6 F 06/01/24 18:14 Pulse Rate 81 06/01/24 18:14 Respiratory Rate 20 06/01/24 18:14 Blood Pressure 125/62 06/01/24 18:14 O2 Sat by Pulse Oximetry 95 06/01/24 18:14 Pain Scale Pain Intensity 0 - Physical Exam General Appearance: no apparent distress, alert Respiratory Exam: airway intact, No respiratory distress Cardiovascular Exam: regular rate/rhythm, normal heart sounds Skin Exam: other (2cm skin tear b/w 2nd and 3rd mcp joints on posterior aspect of left hand, hemostatic, appears to be well healing) SpO2 Interpretation: normal SpO2: 95 O2 Delivery: Room Air Procedures - Laceration/Wound Repair Left Posterior Hand Time of Procedure: 18:20 Wound Location: Left, hand Wound Length (cm): 2 Wound's Depth, Shape: superficial, flap Wound Explored: to base Irrigated: Yes Hibiclens Prep: Yes Wound Debrided: extensive Wound Repaired With: Steri-strips (2) Sterile Dressing Applied?: Yes Splint Applied?: No Sling Applied?: No - Progress Progress: improved Progress Note: 06/01/24 18:26 Discharge home w/ follow up w/ PCP this week (Kalina) allow steristrips to fall off on their own keep area wrapped w/ non-stick gauze and coband return to ER if: bleeding recurs, wound re-opens, develop fevers or loss of sensation in the hand Counseled pt/family regarding: diagnosis, need for follow-up Medical Desision Making - Diagnostic Testing Diagnostic test were ordered, analyzed, and reviewed by me: No - Risk of complications Minimal Risk: Minimal risk of morbidity - Departure Departure Disposition: Home Clinical Impression: Skin tear of left hand without complication Qualifiers: Encounter type: initial encounter Qualified Code(s): S61.412A - Laceration without foreign body of left hand, initial encounter Condition: Stable Critical Care Time: No Referrals: NATALEE POTTS NP [Primary Care Provider] - Follow up/PCP as directed Additional Instructions: Discharge home w/ follow up w/ PCP this week (Kalina) allow steristrips to fall off on their own keep area wrapped w/ non-stick gauze and coband return to ER if: bleeding recurs, wound re-opens, develop fevers or loss of sensation in the hand
== END 2024-06-01 18:35 | disposition home or self-care (01) ==
LOC: ED 18:05
DX: S61.412A Laceration without foreign body of left hand, initial encounter (principal); W45.8XXA Other foreign body or object entering through skin, initial encounter; E78.5 Hyperlipidemia, unspecified; I10 Essential (primary) hypertension; Z79.01 Long term (current) use of anticoagulants; Z79.899 Other long term (current) drug therapy
CPT/HCPCS: 99281

== ENCOUNTER 2024-06-02 15:39 | Emergency (ER) | payer MEDICARE ==
[2024-06-02 16:00] VITALS: BP 131/69; PULSE 69; RESP 18; TEMP 97.7; O2SAT 93
--- NOTE | 2024-06-02 17:13 | XRAY ---
Indication: Head injury following fall. Multiple contiguous axial images obtained through the head without contrast. Comparison: September 30, 2022 Again age-appropriate global atrophy with minimal periventricular degenerative micro-ischemia. No acute intracranial hemorrhage, abnormal extra-axial fluid collection, or mass effect. Fourth ventricle is midline without hydrocephalus. Bony calvarium intact. Again near-complete opacification of paranasal sinuses. Also stable partial opacification both mastoid air cells presumably inflammatory. Impression: 1. Continued nonacute senile brain. 2. Again pansinusitis and partial opacification both mastoid air cells presumed inflammatory.
--- NOTE | 2024-06-02 17:17 | XRAY ---
Indication: Head injury following fall. Multiple contiguous axial images obtained through the facial bones. Sagittal and coronal reformatted images obtained. Comparison: None Osseous structures demineralized. No acute fracture, suspicious bony lesions, or radiopaque foreign body. Orbits including roof, pagan, and floors intact. Near complete opacification all paranasal sinuses without fluid leveling. Minimal nasal septal deviation to the left. TMJ bilaterally symmetric. Patient edentulous. Visualized noncontrasted soft tissues are unremarkable. CT head reported separately. Impression: Pansinusitis and osteopenia. Remaining CT facial bones negative.
--- NOTE | 2024-06-02 17:28 | ERPHSYRPT ---
- History of Present Illness Time Seen by Provider: 06/02/24 15:59 Source: patient Exam Limitations: no limitations Patient Subjective Stated Complaint: C/O fall at home approx one hour prior to coming into the ER today. States he just lost his footing and fell. Denies diz ziness or loss of conciousness. He did hit his head. C/O head, nose, left knee, right wrist pain. Triage Nursing Assessment: Patient ambulated back to ER without difficulties. He is alert and oriented. Superficial abrasion noted to left side of forehead and bridge of nose; not active bleeding. Bruising also noted to forehead and bridge of nose. Some bruising noted to right wrist; normal ROM. No bruising or swelling to left knee; old scabbed scratch to area. Physician History: Patient had a mechanical fall just prior to arrival. States that he turned quickly got his feet caught up and fell forward. Patient has an abrasion to the bridge of his nose, left forehead. No active bleeding. No other significant injuries. Patient has some minor bruising on right wrist and abrasion over left knee. Patient is on blood thinners. Patient is taking PO well. Same number of urinations and defecations. The patient has no signs of altered mental status, nuchal rigidity, signs of meningitis. The patient is up-to-date on all vaccinations. Allergies/Adverse Reactions: levofloxacin Allergy (Intermediate, Verified 06/02/24 15:48) Hives Home Medications: Aspirin EC 81 mg [Ecotrin 81 mg] 81 mg PO DAILY 04/15/19 [History] Apixaban [Eliquis] 5 mg PO BID 02/12/21 [History] Atorvastatin Calcium 80 mg PO QHS 02/07/22 [History] Metoprolol Succinate 25 mg Xl* [Toprol-Xl 25MG Tablets] 25 mg PO DAILY 10/07/22 [History] Levothyroxine Sodium 75 Mcg [Synthroid 75 Mcg] 75 mg PO DAILY 01/01/23 [History] Fluticasone/Vilanterol [Breo Ellipta 200-25 Mcg Inhalr] 1 puff PO DAILY 01/14/23 [History] Hx Tetanus, Diphtheria Vaccination/Date Given: Yes (2023) Hx Influenza Vaccination/Date Given: Yes Hx Pneumococcal Vaccination/Date Given: No Immunizations Up to Date: Yes Travel Risk - International Travel Have you traveled outside of the country in past 3 weeks: No - Emerging Infectious Disease Are you exhibiting symptoms associated with any current EIDs: No - Past Medical History Pertinent Past Medical History: Yes Neurological History: Peripheral Neuropathy, Seizures ENT History: Cataracts Cardiac History: Arrhythmia, High Cholesterol, Hypertension Respiratory History: COPD, Pulmonary Embolism Endocrine Medical History: Hypothyroidism Musculoskeletal History: Osteoarthritis GI Medical History: Gallbladder Disease History: Renal Disease Psycho-Social History: No Pertinent History Male Reproductive Disorders: Prostate Problems Other Medical History: A-FIB, CARDIOMYOPATHY, SICK SINUS SYNDROME, SKIN - Past Surgical History Past Surgical History: Yes Neuro Surgical History: No Pertinent History Cardiac: Cardiac Catheterization, Cardiac Stent Respiratory: No Pertinent History Gastrointestinal: Cholecystectomy Genitourinary: No Pertinent History Musculoskeletal: Other Male Surgical History: Other Other Surgical History: Cancerous skin removal from face, nerve surgery to left foot around the ankle Significant Family History: heart disease - Social History Smoking Status: Never smoker Exposure to second hand smoke: No Alcohol Use: None Drug Use: none Patient Lives Alone: No () - Social Determinants of Health Will the patient participate in the screening: Yes Do you worry about a steady place to live?: No Do you have any problems with any of the following?: Pest (bugs,ants,or mice) In the past 12 months,have you had to go without utilities?: No Transportation Issues: No Has anyone in your support network made you feel unsafe?: No Have you or anyone in your house had to go without enough: No - Nursing Vital Signs Nursing Vital Signs: Initial Vital Signs Temperature 97.7 F 06/02/24 15:50 Pulse Rate 69 06/02/24 15:50 Respiratory Rate 18 06/02/24 15:50 Blood Pressure 131/69 06/02/24 15:50 O2 Sat by Pulse Oximetry 93 L 06/02/24 15:50 Pain Scale Pain Intensity 10 - Physical Exam SpO2: 93 Comments: 06/02/24 17:35 Review of Systems Constitutional: Negative for fever. HENT: Negative for congestion. Head injury Respiratory: Negative for shortness of breath. Cardiovascular: Negative for chest pain. Gastrointestinal: Negative for abdominal pain. Genitourinary: Negative for dysuria. Musculoskeletal: Negative for back pain. Skin: Negative for rash. Neurological: Negative for headaches. Psychiatric/Behavioral: Negative for behavioral problems. All other systems reviewed and are negative. Physical Exam Vitals signs and nursing note reviewed. Constitutional: Appearance: Patient is well-developed. HENT: Head: Normocephalic and nasal bridge abrasion with contusion and swelling. Left forehead contusion. Surrounding abrasion. No laceration. No crepitus. Eyes: Conjunctiva/sclera: Conjunctivae normal. Neck: Musculoskeletal: Normal range of motion. No C-spine tenderness no step-offs no deformities no T-spine, L-spine tenderness. Trachea: No tracheal deviation. Cardiovascular: Rate and Rhythm: Normal rate. Pulmonary: Effort: Pulmonary effort is normal. No respiratory distress. Abdominal: Palpations: Abdomen is soft. Musculoskeletal: General: Left knee abrasion. Right wrist abrasion. No obvious deformity, sensation intact, 2+ capillary refill, 2 point tactile discrimination intact. 5 out of 5 strength. Full range of motion without pain. Compartments are soft, nontender. Overlying skin shows no tenting, bruising, ecchymosis. Skin: General: Skin is warm and dry. Neurological/ Psychiatric: Mental Status: Mental status, behavior, interaction with environment is appropriate for patient's age and condition - Course Nursing assessment & vital signs reviewed: Yes Ordered Tests: Active Orders 24 hr Category Date Time Status FACIAL BONES WO CONTRAST [CT] Stat Exams 06/02/24 16:07 Completed HEAD WITHOUT CONTRAST [CT] Stat Exams 06/02/24 16:07 Completed - Progress Progress: improved Progress Note: 06/02/24 17:39 Differential gnosis includes head bleed, skull fracture, nasal bone fracture, other injury. I did discuss imaging of his left knee and right wrist. Patient declined. Requesting only scanning his head and nose. We did obtain a head CT, CT maxillofacial without contrast. These both returned negative for acute fracture or head bleed. Patient most likely has a concussion with the other injuries as above. I did have my usual head injury conversation with the family. They will follow-up closely with their PCP and follow appropriate concussion protocols. They may return here sooner for any new or changing symptoms. Counseled pt/family regarding: diagnosis, need for follow-up, rad results - Departure Departure Disposition: Home Clinical Impression: Nasal abrasion, Forehead abrasion, Head contusion Condition: Stable Critical Care Time: No Referrals: NATALEE POTTS NP [Primary Care Provider] - Follow up/PCP as directed Instructions: Contusion (DC), Preventing falls in adults
== END 2024-06-02 17:36 | disposition home or self-care (01) ==
LOC: ED 15:39
DX: S00.83XA Contusion of other part of head, initial encounter (principal); S00.33XA Contusion of nose, initial encounter; W18.30XA Fall on same level, unspecified, initial encounter; Y92.009 Unspecified place in unspecified non-institutional (private) residence as the place of occurrence of the external cause; Z79.01 Long term (current) use of anticoagulants; Z79.899 Other long term (current) drug therapy; Z86.711 Personal history of pulmonary embolism
CPT/HCPCS: 70450; 70486; 99282; 99284